=== PATIENT | male | born 1950 | race Caucasian/White ===

== ENCOUNTER 2023-06-17 14:09 | Emergency (ER) | payer MEDICARE, SELFPAY ==
[2023-06-17 14:13] VITALS: BP 169/95; PULSE 85; RESP 18; TEMP 36.9; O2SAT 96; BMI 30.1
--- NOTE | 2023-06-17 14:33 | ED.GENADUL1 ---
Documented by User: SCOTTY Martin 06/17/23 17:20 HPI - General Adult General Chief complaint: Abdominal Pain Stated complaint: ABDOMINAL PAIN Time Seen by Provider: 06/17/23 14:22 Source: patient Mode of arrival: walk-in Limitations: no limitations History of Present Illness HPI narrative: Patient is a 73-year-old male presents to the Emergency Room with concerns of abdominal pain. Patient notes symptoms started yesterday firm anterior abdomen, notes today pain still present, at times severe currently 7-8/10 nonradiating. patient reports having darker than usual stools, is on Plavix. Has a prior history of abdominal hernia noted during a right leg vascular surgery at [facility]. patient reports diarrhea 2-3 times yesterday and today. Denies any radiating pain into his legs. He has still had an appetite but notes his abdominal pain is not improved and continues to worsen. Denies any history of bowel obstructions. PCP is Dr. Peace. Chest pain or shortness of breath. Pain Consistency: Reports constant Relieving factors: Reports none Exacerbating factors: Reports none Related Data Home Medications Medication Instructions Recorded Confirmed ascorbic acid (vitamin C) 500 mg mg PO 06/17/23 capsule atorvastatin 80 mg tablet 80 mg PO DAILY 06/17/23 06/17/23 cholecalciferol (vitamin D3) 125 5,000 unit PO DAILY 06/17/23 06/17/23 mcg (5,000 unit) capsule clopidogrel 75 mg tablet 75 mg PO DAILY 06/17/23 06/17/23 coenzyme Q10 75 mg capsule (Ultra 75 mg PO DAILY 06/17/23 06/17/23 CoQ10) fluticasone fur. 200 mcg-umeclid 1 inh inhalation DAILY 06/17/23 06/17/23 62.5 mcg-vilant 25 mcg inhalat.powder (Trelegy Ellipta) glucosamine VUp-K9-Bnujpojyp 1 tab PO DAILY 06/17/23 06/17/23 keerthi 1,500 mg-400 unit-100 mg tablet (Osteo Bi-Flex (5-Loxin)) hydrochlorothiazide 25 mg tablet 25 mg PO DAILY 06/17/23 06/17/23 losartan 100 mg tablet 100 mg PO DAILY 06/17/23 06/17/23 metoprolol succinate 25 mg 25 mg PO DAILY 06/17/23 06/17/23 tablet,extended release 24 hr multivitamin 1 tab PO DAILY 06/17/23 06/17/23 omega 3-qry-rlc-fish oil 60 mg-90 1 cap PO DAILY 06/17/23 06/17/23 mg-500 mg capsule (Fish Oil) Previous Rx's Medication Instructions Recorded dicyclomine 20 mg tablet 20 mg PO TID 5 days #15 tabs 06/17/23 polyethylene glycol 3350 17 gram 17 g PO DAILY 5 days #14 ea 06/17/23 oral powder packet (Miralax) Allergies Allergy/AdvReac Type Severity Reaction Status Date / Time Penicillins Allergy Intermediate Verified 06/17/23 14:16 Review of Systems ROS Constitutional Denies: fever or chills Eyes Denies: change in vision Ears, nose, mouth, and throat Denies: throat pain or neck pain Cardiovascular Denies: chest pain or palpitations Respiratory Denies: shortness of breath Gastrointestinal Reports: abdominal pain, nausea and change in stool character (dark brown stools, denies black stools or bright red blood.); Denies: vomiting or coffee grounds in vomit Genitourinary Denies: painful urination Musculoskeletal Reports: back pain (chronic per patient) Integumentary/Breast Denies: rash Neurological Denies: headache Psychiatric Denies: anxiety Endocrine Denies: excessive urination Allergic/Immunologic Denies: hives Exam Narrative Exam Narrative: Nurses notes and vital signs reviewed and patient is not hypoxic. General: The patient appears well and in no apparent distress. Patient is resting comfortably on cart. Skin: Warm, dry, no pallor noted. Head: Normocephalic, atraumatic Neck: Supple, trachea mid-line, no tenderness, no lymphadenopathy Eye: Pupils are equal, round and reactive to light, EOMI Ears, Nose, Mouth, and Throat: TM are clear, normal light reflex, oral mucosa is moist, no posterior oropharynx erythema or hypertrophy, uvula is mid-line Cardiovascular: Regular Rate and Rhythm Respiratory: Patient is in no distress, no accessory muscle use, lungs are clear to auscultation, no wheezing, rales or rhonchi. Chest Wall: no tenderness, no pleuritic pain Back: non-tender, no CVA tenderness Musculoskeletal: normal ROM, no tenderness, no swelling, denies pain in the bilateral hips.. GI: Normal bowel sounds, notable periumbilical tenderness, firmness and guarding noted. No focal palpable hernia. No prior surgical scars noted. Suspect. Umbilical hernia, but symptoms are not localized to the umbilicus. rectal: Thien Witt at bedside. Multiple noninflamed hemorrhoids noted, good sphincter tone patient had enlarged prostate on palpation but no significant nodularity palpable. Patient had yellowish-brown stool. No gross blood or dark tarry stool appreciated. Neurological: A&O x4 Psychiatric: Cooperative Constitutional Vital Signs, click to edit/add: Last Vital Signs Temp 98.4 F 06/17/23 14:13 Pulse 85 06/17/23 14:13 Resp 18 06/17/23 14:13 BP 169/95 H 06/17/23 14:13 Pulse Ox 96 06/17/23 14:13 O2 Del Method Room Air 06/17/23 14:13 Course Vital Signs Vital signs: Vital Signs Temperature 98.4 F 06/17/23 14:13 Pulse Rate 85 06/17/23 14:13 Respiratory Rate 18 06/17/23 14:13 Blood Pressure 169/95 H 06/17/23 14:13 Pulse Oximetry 96 06/17/23 14:13 Oxygen Delivery Method Room Air 06/17/23 14:13 Temperature 98.4 F 06/17/23 14:13 Pulse Rate 85 06/17/23 14:13 Respiratory Rate 18 06/17/23 14:13 Blood Pressure 169/95 H 06/17/23 14:13 Pulse Oximetry 96 06/17/23 14:13 Oxygen Delivery Method Room Air 06/17/23 14:13 Medical Decision Making MDM Narrative Medical decision making narrative: patient presents with history of known abdominal hernia, prior CAT scan before Covid. Concern with progressive pain since yesterday, diarrhea. Paatient without any vomiting or fever. Notable guarding on exam patient agreeable to CT examination today. patient medicated with 40 mmg IV Protonix, 1 mg Dilaudid, and IV fluid bolus. patient reevaluated noting abdominal pain completely recalls. Abdomen nonsurgical. He is able to walk without difficulty. We discussed the CT findings, no evidence of acute infection, specifically discussed need for follow-up with general surgeon as patient had a colonoscopy four years ago with multiple polyps removed. We discussed this mucosal change in the sigmoid colon and need for further evaluation along with his prostate. He denies any urinary symptoms currently. He is on Plavix. Rectal exam without any evidence of gross blood, occult blood was negative. Patient is on Plavix. We discussed taking Bentyl and MiraLAX for the next few days. Patient admits to taking Pepto-Bismol and this may havee caused his dark stool. Patient agreeable to disposition home and follow-up to general surgeon.patient denies pain with eating for concern of gallbladder disease, but cholelithiasis The patient is to followup with primary care physician in next 2-3 days or to return to the emergency department should any of the signs or symptoms worsen or new symptoms develop. Patient had questions answered. The patient agrees with the following Diagnosis and Treatment plan and the patient will be discharged home. Lab Data Lab results narrative: mild anemia may be iron deficiency Hemoccult is negative. Slightly elevated creatinine. Clinical exam noted for umbilical hernia, appears only fat containing. Labs: Lab Results 06/17/23 06/17/23 Range/Units 14:47 16:55 WBC 5.1 (4.0-11.0) 10^3/uL RBC 3.90 L (4.70-6.10) 10^6/uL Hgb 12.8 L (14.0-18.0) g/dL Hct 37.3 L (42.0-54.0) % MCV 95.6 H (80.0-94.0) fL MCH 32.8 (25.9-34.0) pg MCHC 34.3 (29.9-35.2) g/dL RDW 13.4 (11.0-15.0) % Plt Count 215 (150-450) 10^3/uL MPV 9.3 L (9.5-13.5) fL Neut % (Auto) 73.8 (43.0-75.0) % Lymph % (Auto) 10.7 L (20.5-60.0) % [place] % (Auto) 11.7 (1.7-12.0) % Eos % (Auto) 2.8 (0.9-7.0) % Baso % (Auto) 0.4 (0.2-2.0) % Neut # (Auto) 3.7 (1.4-6.5) 10^3/uL Lymph # (Auto) 0.5 L (1.2-3.8) 10^3/uL [place] # (Auto) 0.6 (0.3-0.8) 10^3/uL Eos # (Auto) 0.1 (0.0-0.7) 10^3/uL Baso # (Auto) 0.0 (0.0-0.1) 10^3/uL Abs Immat Gran (auto) 0.03 (0.00-0.03) 10^3/uL Imm/Tot Granulo (auto) 0.6 H (0.0-0.5) % PT 10.1 (9.0-11.6) sec INR 0.95 APTT 23.4 (22.3-36.2) sec Sodium 132 L (136-145) mmol/L Potassium 4.7 (3.5-5.1) mmol/L Chloride 100 (98-107) mmol/L Carbon Dioxide 27.0 (21.0-32.0) mmol/L Anion Gap 9.7 BUN 18.0 (7.0-18.0) mg/dL Creatinine 1.53 H (0.70-1.30) mg/dL Est GFR ( Amer) 54 L (>=60) Est GFR (Non-Af Amer) 45 L (>=60) BUN/Creatinine Ratio 11.8 Glucose 102 (74-106) mg/dL Lactate 1.2 (0.4-2.0) mmol/L Calcium 8.9 (8.5-10.1) mg/dL Total Bilirubin 0.8 (0.2-1.0) mg/dL AST 35 (15-37) U/L ALT 33 (16-63) U/L Alkaline Phosphatase 70 (46-116) U/L Troponin I High Sens 18.9 (4.0-76.1) pg/mL Total Protein 6.9 (6.4-8.2) g/dL Albumin 3.4 (3.4-5.0) g/dL Globulin 3.5 g/dL Albumin/Globulin Ratio 1.0 Lipase 138.0 (73.0-393.0) U/L Stool Occult Blood Negative Discharge Plan Discharge Chief Complaint: Abdominal Pain Clinical Impression: Hernia, umbilical, Abdominal pain Patient Disposition: Home, Self-Care Time of Disposition Decision: 17:11 Condition: Good Prescriptions / Home Meds: New dicyclomine 20 mg tablet 20 mg PO TID 5 Days Qty: 15 0RF polyethylene glycol 3350 [Miralax] 17 gram powder in packet 17 g PO DAILY 5 Days Qty: 14 0RF No Action Guy Mtzta 200-62.5-25 mcg blister with device 1 inh inhalation DAILY atorvastatin 80 mg tablet 80 mg PO DAILY clopidogrel 75 mg tablet 75 mg PO DAILY losartan 100 mg tablet 100 mg PO DAILY metoprolol succinate 25 mg tablet extended release 24 hr 25 mg PO DAILY hydrochlorothiazide 25 mg tablet 25 mg PO DAILY ascorbic acid (vitamin C) 500 mg capsule PO cholecalciferol (vitamin D3) 125 mcg (5,000 unit) capsule 5,000 unit PO DAILY multivitamin Tablet 1 tab PO DAILY omega 7-bmk-qal-fish oil [Fish Oil] 60-90-500 mg capsule 1 cap PO DAILY aniihggatlt-H7-Rfwjbjohj serr [Osteo Bi-Flex (5-Loxin)] 1,500-400-100 mg-unit-mg tablet 1 tab PO DAILY Rx Instructions: give after food/meal Ultra CoQ10 75 mg capsule 75 mg PO DAILY Instructions: Umbilical Hernia (ED), Abdominal Pain (ED) Stand Alone Forms: Portal Instructions Referrals: Jeet Josue MD [Physician] - As soon as possible Pool Peace MD [Primary Care Provider] - 1 week Discharge Date/Time: 06/17/23 17:20 Documented by User: Thelma Haynes MD 06/17/23 17:46 HPI - General Adult General Chief complaint: Abdominal Pain Stated complaint: ABDOMINAL PAIN Time Seen by Provider: 06/17/23 14:22 Related Data Home Medications Medication Instructions Recorded Confirmed ascorbic acid (vitamin C) 500 mg mg PO 06/17/23 capsule atorvastatin 80 mg tablet 80 mg PO DAILY 06/17/23 06/17/23 cholecalciferol (vitamin D3) 125 5,000 unit PO DAILY 06/17/23 06/17/23 mcg (5,000 unit) capsule clopidogrel 75 mg tablet 75 mg PO DAILY 06/17/23 06/17/23 coenzyme Q10 75 mg capsule (Ultra 75 mg PO DAILY 06/17/23 06/17/23 CoQ10) fluticasone fur. 200 mcg-umeclid 1 inh inhalation DAILY 06/17/23 06/17/23 62.5 mcg-vilant 25 mcg inhalat.powder (Trelegy Ellipta) glucosamine KYw-A1-Ikbgdvfsl 1 tab PO DAILY 06/17/23 06/17/23 keerthi 1,500 mg-400 unit-100 mg tablet (Osteo Bi-Flex (5-Loxin)) hydrochlorothiazide 25 mg tablet 25 mg PO DAILY 06/17/23 06/17/23 losartan 100 mg tablet 100 mg PO DAILY 06/17/23 06/17/23 metoprolol succinate 25 mg 25 mg PO DAILY 06/17/23 06/17/23 tablet,extended release 24 hr multivitamin 1 tab PO DAILY 06/17/23 06/17/23 omega 8-rdc-bag-fish oil 60 mg-90 1 cap PO DAILY 06/17/23 06/17/23 mg-500 mg capsule (Fish Oil) Previous Rx's Medication Instructions Recorded dicyclomine 20 mg tablet 20 mg PO TID 5 days #15 tabs 06/17/23 polyethylene glycol 3350 17 gram 17 g PO DAILY 5 days #14 ea 06/17/23 oral powder packet (Miralax) Allergies Allergy/AdvReac Type Severity Reaction Status Date / Time Penicillins Allergy Intermediate Verified 06/17/23 14:16 Exam Constitutional Vital Signs, click to edit/add: Last Vital Signs Temp 98.4 F 06/17/23 14:13 Pulse 85 06/17/23 14:13 Resp 18 06/17/23 14:13 BP 169/95 H 06/17/23 14:13 Pulse Ox 96 06/17/23 14:13 O2 Del Method Room Air 06/17/23 14:13 Course Vital Signs Vital signs: Vital Signs Temperature 98.4 F 06/17/23 14:13 Pulse Rate 85 06/17/23 14:13 Respiratory Rate 18 06/17/23 14:13 Blood Pressure 169/95 H 06/17/23 14:13 Pulse Oximetry 96 06/17/23 14:13 Oxygen Delivery Method Room Air 06/17/23 14:13 Temperature 98.4 F 06/17/23 14:13 Pulse Rate 85 06/17/23 14:13 Respiratory Rate 18 06/17/23 14:13 Blood Pressure 169/95 H 06/17/23 14:13 Pulse Oximetry 96 06/17/23 14:13 Oxygen Delivery Method Room Air 06/17/23 14:13 Medical Decision Making MDM Narrative Medical decision making narrative: patient presents with history of known abdominal hernia, prior CAT scan before Covid. Concern with progressive pain since yesterday, diarrhea. Paatient without any vomiting or fever. Notable guarding on exam patient agreeable to CT examination today. patient medicated with 40 mmg IV Protonix, 1 mg Dilaudid, and IV fluid bolus. patient reevaluated noting abdominal pain completely recalls. Abdomen nonsurgical. He is able to walk without difficulty. We discussed the CT findings, no evidence of acute infection, specifically discussed need for follow-up with general surgeon as patient had a colonoscopy four years ago with multiple polyps removed. We discussed this mucosal change in the sigmoid colon and need for further evaluation along with his prostate. He denies any urinary symptoms currently. He is on Plavix. Rectal exam without any evidence of gross blood, occult blood was negative. Patient is on Plavix. We discussed taking Bentyl and MiraLAX for the next few days. Patient admits to taking Pepto-Bismol and this may havee caused his dark stool. Patient agreeable to disposition home and follow-up to general surgeon.patient denies pain with eating for concern of gallbladder disease, but cholelithiasis The patient is to followup with primary care physician in next 2-3 days or to return to the emergency department should any of the signs or symptoms worsen or new symptoms develop. Patient had questions answered. The patient agrees with the following Diagnosis and Treatment plan and the patient will be discharged home. Attending physician attestation I have reviewed the mid-level documentation, agree with the documentation, medical decision making and treatment plan as outlined by the mid-level provider. Lab Data Labs: Lab Results 06/17/23 06/17/23 Range/Units 14:47 16:55 WBC 5.1 (4.0-11.0) 10^3/uL RBC 3.90 L (4.70-6.10) 10^6/uL Hgb 12.8 L (14.0-18.0) g/dL Hct 37.3 L (42.0-54.0) % MCV 95.6 H (80.0-94.0) fL MCH 32.8 (25.9-34.0) pg MCHC 34.3 (29.9-35.2) g/dL RDW 13.4 (11.0-15.0) % Plt Count 215 (150-450) 10^3/uL MPV 9.3 L (9.5-13.5) fL Neut % (Auto) 73.8 (43.0-75.0) % Lymph % (Auto) 10.7 L (20.5-60.0) % [place] % (Auto) 11.7 (1.7-12.0) % Eos % (Auto) 2.8 (0.9-7.0) % Baso % (Auto) 0.4 (0.2-2.0) % Neut # (Auto) 3.7 (1.4-6.5) 10^3/uL Lymph # (Auto) 0.5 L (1.2-3.8) 10^3/uL [place] # (Auto) 0.6 (0.3-0.8) 10^3/uL Eos # (Auto) 0.1 (0.0-0.7) 10^3/uL Baso # (Auto) 0.0 (0.0-0.1) 10^3/uL Abs Immat Gran (auto) 0.03 (0.00-0.03) 10^3/uL Imm/Tot Granulo (auto) 0.6 H (0.0-0.5) % PT 10.1 (9.0-11.6) sec INR 0.95 APTT 23.4 (22.3-36.2) sec Sodium 132 L (136-145) mmol/L Potassium 4.7 (3.5-5.1) mmol/L Chloride 100 (98-107) mmol/L Carbon Dioxide 27.0 (21.0-32.0) mmol/L Anion Gap 9.7 BUN 18.0 (7.0-18.0) mg/dL Creatinine 1.53 H (0.70-1.30) mg/dL Est GFR ( Amer) 54 L (>=60) Est GFR (Non-Af Amer) 45 L (>=60) BUN/Creatinine Ratio 11.8 Glucose 102 (74-106) mg/dL Lactate 1.2 (0.4-2.0) mmol/L Calcium 8.9 (8.5-10.1) mg/dL Total Bilirubin 0.8 (0.2-1.0) mg/dL AST 35 (15-37) U/L ALT 33 (16-63) U/L Alkaline Phosphatase 70 (46-116) U/L Troponin I High Sens 18.9 (4.0-76.1) pg/mL Total Protein 6.9 (6.4-8.2) g/dL Albumin 3.4 (3.4-5.0) g/dL Globulin 3.5 g/dL Albumin/Globulin Ratio 1.0 Lipase 138.0 (73.0-393.0) U/L Stool Occult Blood Negative Discharge Plan Discharge Chief Complaint: Abdominal Pain Clinical Impression: Hernia, umbilical, Abdominal pain Patient Disposition: Home, Self-Care Time of Disposition Decision: 17:11 Condition: Good Prescriptions / Home Meds: New dicyclomine 20 mg tablet 20 mg PO TID 5 Days Qty: 15 0RF polyethylene glycol 3350 [Miralax] 17 gram powder in packet 17 g PO DAILY 5 Days Qty: 14 0RF No Action Trelegy Ellipta 200-62.5-25 mcg blister with device 1 inh inhalation DAILY atorvastatin 80 mg tablet 80 mg PO DAILY clopidogrel 75 mg tablet 75 mg PO DAILY losartan 100 mg tablet 100 mg PO DAILY metoprolol succinate 25 mg tablet extended release 24 hr 25 mg PO DAILY hydrochlorothiazide 25 mg tablet 25 mg PO DAILY ascorbic acid (vitamin C) 500 mg capsule PO cholecalciferol (vitamin D3) 125 mcg (5,000 unit) capsule 5,000 unit PO DAILY multivitamin Tablet 1 tab PO DAILY omega 2-mmc-ddo-fish oil [Fish Oil] 60-90-500 mg capsule 1 cap PO DAILY tsycecqtvzs-Q3-Pougiayup serr [Osteo Bi-Flex (5-Loxin)] 1,500-400-100 mg-unit-mg tablet 1 tab PO DAILY Rx Instructions: give after food/meal Ultra CoQ10 75 mg capsule 75 mg PO DAILY Instructions: Umbilical Hernia (ED), Abdominal Pain (ED) Stand Alone Forms: Portal Instructions Referrals: Jeet Josue MD [Physician] - As soon as possible Pool Peace MD [Primary Care Provider] - 1 week Discharge Date/Time: 06/17/23 17:20
[2023-06-17] MEDS: HYDROMORPHONE HCL 1 MG/ML CARTRIDGE IVP (14:56)
[2023-06-17] MEDS: ONDANSETRON PF 4 MG/2 ML VIAL IV (14:56)
[2023-06-17] MEDS: PANTOPRAZOLE SODIUM 40 MG VIAL IV (14:56)
[2023-06-17] MEDS: 0.9 % SODIUM CHLORIDE 1,000 ML 999 ML IV (14:56)
[2023-06-17 14:58] LABS: Basophils Percent Auto 0.4 % (0.2-2.0); Eosinophils Absolute Auto 0.1 10^3/uL (0.0-0.7); Eosinophils Percent Auto 2.8 % (0.9-7.0); Hematocrit 37.3 % (42.0-54.0); Hemoglobin 12.8 g/dL (14.0-18.0); Immature Granulocytes Abs Auto 0.03 10^3/uL (0.00-0.03); Immature Granulocytes Pct Auto 0.6 % (0.0-0.5); Lymphocytes Absolute Auto 0.5 10^3/uL (1.2-3.8); Lymphocytes Percent Auto 10.7 % (20.5-60.0); Mean Corpuscular HGB Conc 34.3 g/dL (29.9-35.2); Mean Corpuscular Hemoglobin 32.8 pg (25.9-34.0); Mean Corpuscular Volume 95.6 fL (80.0-94.0); Mean Platelet Volume 9.3 fL (9.5-13.5); Monocytes Absolute Auto 0.6 10^3/uL (0.3-0.8); Monocytes Percent Auto 11.7 % (1.7-12.0); Neutrophils Absolute Auto 3.7 10^3/uL (1.4-6.5); Neutrophils Percent Auto 73.8 % (43.0-75.0); Platelet Count 215 10^3/uL (150-450); Red Cell Distribution Width 13.4 % (11.0-15.0); White Blood Count 5.1 10^3/uL (4.0-11.0)
[2023-06-17 15:09] LABS: Anion Gap 9.7; INR 0.95; Partial Thromboplastin Time 23.4 sec (22.3-36.2); Prothrombin Time 10.1 sec (9.0-11.6)
[2023-06-17 15:12] LABS: Alanine Aminotransferase 33 U/L (16-63); Albumin Level 3.4 g/dL (3.4-5.0); Alkaline Phosphatase 70 U/L (46-116); Aspartate Amino Transferase 35 U/L (15-37); BUN Creatinine Ratio 11.8; Bilirubin Total 0.8 mg/dL (0.2-1.0); Calcium 8.9 mg/dL (8.5-10.1); Chloride 100 mmol/L (98-107); Estimated GFR (African America 54 (>=60); Estimated GFR (Non-African Ame 45 (>=60); Globulin 3.5 g/dL; Glucose 102 mg/dL (74-106); Lactate/Lactic Acid 1.2 mmol/L (0.4-2.0); Potassium 4.7 mmol/L (3.5-5.1); Sodium 132 mmol/L (136-145); Total Protein 6.9 g/dL (6.4-8.2); Troponin I High Sensitivity 18.9 pg/mL (4.0-76.1)
--- NOTE | 2023-06-17 15:49 | CT_ITS ---
[address] [address] Patient Name: HUY MARTINEZ MRN: [id number] date: 1950 Sex: M Assigned Patient Location: ER Current Patient Location: ER Accession/Order Number: [id number] Exam Date: 06/17/2023 15:40 Report Date: 06/17/2023 16:17 At the request of: OLI IGLESIAS Procedure: CT abdomen pelvis w con CT abdomen pelvis w con, 06/17/2023 3:40 PM EDT INDICATION: Abdominal pain x2 days. Stool darker than normal. COMPARISON: Contrast-enhanced CT scan of the abdomen and pelvis 02/06/2015, LD CT of the chest lung cancer screening 02/24/2022. TECHNIQUE: Axial images of the abdomen and pelvis were obtained after the administration of oral and IV contrast. Multiplanar reformatted images were generated and reviewed as needed. Dose reduction techniques were achieved by using automated exposure control and/or adjustment of mA and/or kV according to patient size and/or use of iterative reconstruction technique. FINDINGS: Subsegmental atelectasis at the lung bases bilaterally. No lobar consolidation or effusion. Cholelithiasis. The liver, pancreas and adrenals are unremarkable. Calcified splenic granulomas. Symmetric nephrograms without evidence of obstruction. Bilateral cortical renal cysts. No urolithiasis. No urinary bladder wall thickening or perivesicular fat stranding. Central calcification within an enlarged prostate gland. No aortic aneurysm. No bowel obstruction or acute focal inflammation. Normal appendix. Colonic diverticulosis most pronounced within the sigmoid colon. Muscular hypertrophy of the wall of the sigmoid colon. No pneumatosis, pneumoperitoneum or ascites. No mesenteric or retroperitoneal lymphadenopathy. Small fat-containing umbilical hernia. No acute fracture or dislocation. Partially imaged, patent vascular stent right superficial femoral artery. CT/CT abdomen pelvis w con IMPRESSION: 1. Colonic diverticulosis with muscular hypertrophy of the wall of the sigmoid colon. No findings to suggest acute diverticulitis. Discrete underlying mucosal lesion cannot be excluded. 2. Cholelithiasis. 3. Prostatomegaly. Electronically authenticated by: JAMMIE RIVERA Date: 06/17/2023 16:17
--- NOTE | 2023-06-17 15:53 | XR_ITS ---
The [address] [address] Patient Name: HUY MARTINEZ MRN: [id number] date: 1950 Sex: M Assigned Patient Location: ER Current Patient Location: ER Accession/Order Number: [id number] Exam Date: 06/17/2023 15:49 Report Date: 06/17/2023 15:59 At the request of: OLI IGLESIAS Procedure: XR chest 1V EXAMINATION: XR chest 1V HISTORY: Abdominal pain COMPARISON: Chest x-rays 01/07/2022 TECHNIQUE: Portable chest FINDINGS: The lung parenchyma is free of consolidation or infiltrate. Stable left upper hemithorax calcified pulmonary granuloma. No pneumothorax or pleural effusion. The cardiac, mediastinal and hilar contours are normal. The visualized osseous structures exhibit no gross abnormality. XR/XR chest 1V IMPRESSION: No acute cardiopulmonary abnormality. Electronically authenticated by: UMM SMITH Date: 06/17/2023 15:59
[2023-06-17 17:13] LABS: Occult Blood Negative
== END 2023-06-17 17:20 | disposition home or self-care (01) ==
PROVIDERS: Personal Emergency Response Attendant; Emergency Provider Emergency Medicine; PCP Family Medicine
DX: R10.9 Unspecified abdominal pain (principal); K42.9 Umbilical hernia without obstruction or gangrene; R19.5 Other fecal abnormalities; Z79.02 Long term (current) use of antithrombotics/antiplatelets; Z79.899 Other long term (current) drug therapy
CPT/HCPCS: 36415; 71045; 74177; 80053; 83605; 83690; 84484; 85025; 85610; 85730; 96361; 96374; 96375; 99285; G0328; J1170; Q9966

== ENCOUNTER 2023-09-19 08:47 | Outpatient (OUT) | payer MEDICARE, SELFPAY ==
--- NOTE | 2023-09-19 | CT_ITS ---
[address] [address] Patient Name: HUY MARTINEZ MRN: [id number] date: 1950 Sex: M Assigned Patient Location: CT Current Patient Location: Accession/Order Number: [id number] Exam Date: 09/19/2023 09:00 Report Date: 09/20/2023 06:42 At the request of: LEIGHA PEDRAZA Procedure: CT lung screening low-dose EXAMINATION: CT lung screening low-dose HISTORY: lung cancer screening COMPARISON: CT LUNG CANCER SCREENING 02/24/2022, 09/10/2019 TECHNIQUE: Axial, Coronal, and Sagittal images were created without the administration of IV contrast material. Dose reduction techniques were achieved by using automated exposure control and/or adjustment of mA and/or kV according to patient size and/or use of iterative reconstruction technique. FINDINGS: LUNGS: Stable calcified granuloma within left lung apex and 4 mm pleural-based nodule within medial right lower lobe. Minimal emphysematous changes. PLEURA: No mass, effusion, or pneumothorax. VASCULATURE: No abnormality. WINDY: Calcified left hilar lymph nodes compatible with chronic granulomatous disease. MEDIASTINUM: Calcified lymph nodes. CARDIAC: Atherosclerotic coronary artery disease. No cardiac enlargement or pericardial effusion. AORTA: No aneurysm or dissection. CHEST WALL: No mass or axillary adenopathy BONES: Stable T9 mild-moderate compression fracture. Old healed rib fractures. LIMITED ABDOMEN: No suspicious findings. Limited images of the upper abdomen. OTHER: Negative. CT/CT lung screening low-dose IMPRESSION: 1. Lung-RADS 2- Benign Appearance or Behavior. Nodules with a very low likelihood of becoming a clinically active cancer due to size or lack of growth. Follow-up CT Chest in 1 year. Electronically authenticated by: BRADY MORRIS Date: 09/20/2023 06:42
== END 2023-09-19 08:48 | disposition home or self-care (01) ==
LOC: CT 08:47
PROVIDERS: PCP Family Medicine; Visit Provider Internal Medicine
DX: Z87.891 Personal history of nicotine dependence (principal); Z12.2 Encounter for screening for malignant neoplasm of respiratory organs
CPT/HCPCS: 71271

== ENCOUNTER 2023-11-14 14:54 | Outpatient (OUT) | payer MEDICARE, SELFPAY ==
--- NOTE | 2023-11-14 15:00 | XR_ITS ---
The [address] [address] Patient Name: HUY MARTINEZ MRN: [id number] date: 1950 Sex: M Assigned Patient Location: [facility] Current Patient Location: [facility] Accession/Order Number: [id number] Exam Date: 11/14/2023 15:05 Report Date: 11/14/2023 15:27 At the request of: LEIGHA PEDRAZA Procedure: XR chest 2V PA AND LATERAL CHEST; 11/14/2023 3:05 PM EST Clinical History:dyspnea R06.02 Comparison: Frontal exam 06/17/2023 in 2 view study 12/28/2021. Modest compression deformity at a mid to lower thoracic levels unchanged. In the upper thoracic region interval mild superior endplate deformity which is relatively smooth bordered. Is is likely late subacute to chronic Multiple chronic right rib fractures are again demonstrated. No change cardiac and mediastinal silhouettes or angelina. [employer] technique today. Relatively mild peribronchial thickening at the right base. Slight atelectasis or scar at the left base. No failure pattern or pleural effusion. Granuloma left upper lobe is again present. XR/XR chest 2V IMPRESSION: 1. Peribronchial markings at the right base are without significant change. Slight atelectasis left base. 2. No pleural effusion or failure. Electronically authenticated by: GRACIELA LOPEZ Date: 11/14/2023 15:27
--- OUTSIDE RECORDS SUMMARY | 2023-11-14 15:05 | XMS_ITS | CCD ---
Author Name Unknown Address [address] [place] [address] Organization [facility] Care Team Providers Care Flour Inspector Name Role Phone [place] Procedure Practitioner Unavailab le SELF, REFERRED Referring Unavailable SELF, REFERRED Primary Care Unavailable EBRAHEIM, DONALD Surgeon Unavailable EBRAHEIM, DONALD Attending Unavailable EBRAHEIM, DONALD Admitting Unavailable [place] Procedure Practitioner Unavailab YA Galarza Surgeon Unavailable UNKNOWN, PROVIDER Attending Unavailable UNKNOWN, PROVIDER Admitting Unavailable POOL GARCIA Primary Care Unavailable JOSE, POOL Referring Unavailable UNKNOWN, PROVIDER Attending Unavailable UNKNOWN, PROVIDER Admitting Unavailable NADEREMariusz, POOL Referring Unavailable NADERER, POOL Primary Care Unavailable UNKNOWN, PROVIDER Attending Unavailable UNKNOWN, PROVIDER Admitting Unavailable SELF, REFERRED Referring Unavailable SELF, REFERRED Primary Care Unavailable [place] Procedure Practitioner Unavailab le SELF, REFERRED Primary Care Unavailable EBRAHEIM, DONALD Surgeon Unavailable EBRAHEIM, DONALD Referring Unavailable EBRAHEIM, DONALD Attending Unavailable EBRAHEIM, DONALD Admitting Unavailable MARCUS VILLEDA Attending Unavailable CHAUHAN ., DR SCOTT Jurado Consulting Unavailable NADERER, DR POOL Valera Primary Care Unavailable CHAUHAN ., DR SCOTT Jurado Attending Unavailable CHAUHAN ., DR SCOTT Jurado Admitting Unavailable CHAUHAN ., DR SCOTT Jurado Consulting Unavailable NADERER, DR POOL Valera Primary Care Unavailable CHAUHAN ., DR SCOTT Jurado Attending Unavailable CHAUHAN ., DR SCOTT Jurado Admitting Unavailable LAKSHMIPATHY, NARENDRANATH Consulting Unava ilable NADEREMariusz, DR POOL Valera Primary Care Unavailable LAKSHMIPATHY, NARENDRANATH Attending Unava ilable LAKSHMIPATHY, NARENDRANATH Admitting Unava ilable LAKSHMIPATHY, NARENDRANATH Consulting Unava ilable NADEREMariusz, DR POOL Valera Primary Care Unavailable LAKSHMIPATHY, NARENDGISELLEATH Attending Unava ilable LAKSHMIPATHY, NARENDRANATH Admitting Unava ilable SAMSA ., LEIGHA Consulting Unavailable NADERER, DR POOL Valera Primary Care Unavailable SAMSA ., LEIGHA Attending Unavailable SAMSA ., LEIGHA Admitting Unavailable SAMSA ., LEIGHA Consulting Unavailable NADERER, DR POOL Valera Primary Care Unavailable SAMSA ., LEIGHA Attending Unavailable SAMSA ., LEIGHA Admitting Unavailable AGUBOSIM, KALEIGH Consulting Unavailable LONG, CHANTELLE Consulting Unavailable ALEJANDRO, CARMEN Consulting Unavailable ALEXANDRA, DR BRADY Vee Consulting Unavailable NADERER, DR POOL Valera Primary Care Unavailable SAMSA ., LEIGHA Attending Unavailable SAMSA ., LEIGHA Admitting Unavailable SAMSA ., LEIGHA Consulting Unavailable NADERER, DR POOL Valera Consulting Unavailable NADERER, DR POOL Valera Primary Care Unavailable NADERER, DR POOL Valera Attending Unavailable NADERER, DR POOL Valera Admitting Unavailable CHAUHAN ., DR SCOTT Jurado Consulting Unavailable NADERER, DR POOL Valera Primary Care Unavailable CHAUHAN ., DR SCOTT Jurado Attending Unavailable CHAUHAN ., DR SCOTT Jurado Admitting Unavailable NADERER, DR POOL Valera Consulting Unavailable NADERER, DR POOL Valera Primary Care Unavailable NADERER, DR POOL Valera Attending Unavailable NADERER, DR POOL Valera Admitting Unavailable CHAUHAN ., DR SCOTT Jurado Consulting Unavailable NADERER, DR POOL Valera Primary Care Unavailable CHAUHAN ., DR SCOTT Jurado Attending Unavailable CHAUHAN ., DR SCOTT Jurado Admitting Unavailable Katiana Kemp Unavailable Allergies Allergy Classification Reported Allergen(s) Allergy Type Date of Onset Reaction(s) Facility (3 sources) Penicillins; Translations: [PENICILLINS] Drug allergy (disorder) 7 [facility] Repository (1 source) Penicillin G Drug Allergy hives and throat swelling e-Tag Other Medications Current Medications Medication Drug Class(es) Dates Sig (Normalized) Sig (Original) atorvastatin (1 source) HMG-CoA Reductase Inhibitor Atorvastatin Calcium Active clopidogrel 75 mg oral tablet (1 source) P2Y12 Platelet Inhibitor take 1 tablet by mouth every twenty-four hours Clopidogrel Bisulfate 75 MG 1 tablet Orally Once a day Active CoQ-10 150 MG (1 source) CoQ-10 150 MG as directed Orally Active doxycycline hyclate 100 mg oral capsule (1 source) Tetracycline-cl ass Drug Start: 3 take 1 capsule by mouth every twelve hours Doxycycline Hyclate 100 MG 1 capsule Orally Twice a day for 7 days May, Active Fish Oils (1 source) take 1 capsule by mouth once daily Fish Oil 1000 MG 1 capsule Orally Once a day Active hydroCHLOROthiazide (1 source) Thiazide Diuretic hydroCHLOROthiazide Active Losartan (1 source) Angiotensin 2 Receptor Karina Losartan Potassium Active Metoprolol (1 source) beta-Adrenergic Karina Metoprolol Succinate ER Active Multivitamin preparation (1 source) take 1 tablet by mouth once daily Multi Vitamin - 1 tablet Orally Once a day Active Osteo Bi-Flex Adv Joint Shield (1 source) Osteo Bi-Flex Ad v Joint Shield Active predniSONE 20 mg oral tablet (1 source) Start: 3 predniSONE 20 MG Take 3 tabs daily x 3 days, then take 2 tabs daily x 3 days, then take 1 tab daily x 3 days. Orally Once a day for 9 days May, Active Probiotic - (1 source) Probiotic - as directed Orally Active Trelegy Ellipta (1 source) Trelegy Ellipta Active Vitamin C 500 MG (1 source) Vitamin C 500 MG as directed Orally Active Vitamin D-3 125 MCG (5000 UT) (1 source) take 1 tablet by mouth once daily Vitamin D-3 125 MCG (5000 UT) 1 tablet Orally Once a day Active Completed/Discontinued Medications Medication Drug Class(es) Dates Sig (Normalized) Sig (Original) Albuterol (1 source) beta2-Adrenergic Agonist ProAir HFA Not-Taking Aspirin (1 source) Platelet Aggregation Inhibitor, Nonsteroidal Anti-inflammatory Drug Aspirin Low Dose Not-Taking cilostazol (1 source) Phosphodiesterase 3 Inhibitor Cilostazol Not-Taking diclofenac potassium 50 mg oral tablet (1 source) Nonsteroidal Anti-inflammatory Drug Start: 10-10-2019 take 1 tablet by mouth at mealtime Diclofenac Potassium 50 MG 1 tablet Orally two to three times a day with food for 5 days Sep, Not-Taking Isosorbide (1 source) Nitrate Vasodilator Isosorbide Mononitrate ER Not-Taking Problems Active Problems Problem Classification Problem Date Documented Da te Episodic/Chronic Chronic kidney disease (1 source) Chronic kidney disease, unspecified; Translations: [CHRONIC KIDNEY DISEASE UNSPECIFIED] Onset: 03-03-2022 Chronic Chronic obstructive pulmonary disease and bronchiectasis (1 source) Chronic obstructive pulmonary disease, unspecified; Translations: [COPD UNSPECIFIED] Onset: 03-16-2022 Chronic Coronary atherosclerosis and other heart disease (3 sources) Coronary arteriosclerosis; Translations: [Atherosclerotic heart disease of kiana coronary artery without angina pectoris] Onset: 03-16-2022 Chronic Disorders of lipid metabolism (3 sources) Hyperlipidemia; Translations: [Hyperlipidemia, unspecified] Onset: 07-30-2022 Chronic Essential hypertension (6 sources) Hypertensive disorder; Translations: [Essential (primary) hypertension] Onset: 07-27-2022 Chronic Gout and other crystal arthropathies (2 sources) 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; Translations: [Gout, unspecified] Chronic Hyperplasia of prostate (1 source) Benign prostatic hyperplasia without lower urinary tract symptoms; Translations: [BENIGN PROSTATIC HYPRPLASIA WO LUTS] Onset: 03-16-2022 Chronic Hypertension with complications and secondary hypertension (1 source) Hypertensive chronic kidney disease with stage 1 through stage 4 chronic kidney disease, or unspecified chronic kidney disease; Translations: [HTN CKD W/STAGE 1-4 CKD/UNS CKD] Onset: 03-16-2022 Chronic Malaise and fatigue (4 sources) Other fatigue; Translations: [OTHER FATIGUE] Onset: 01-13-2023 Episodic Nutritional deficiencies (1 source) Vitamin D deficiency, unspecified; Translations: [VITAMIN D DEFICIENCY UNSPECIFIED] Onset: 07-30-2022 Chronic Osteoarthritis (1 source) Unilateral primary osteoarthritis, right knee; Translations: [UNI PRIM OSTEOARTHRITIS RT KNEE] Onset: 03-16-2022 Chronic Other aftercare (1 source) Other [place] (current[facility] drug therapy; Translations: [OTH ENERGY ECONOMIST CURRENT DRUG THERAPY] Onset: 01-16-2023 Episodic Other diseases of veins and lymphatics (1 source) Other specified noninfective disorders of lymphatic vessels and lymph nodes; Translations: [OTH SPEC NONINFECT D/O LYM VES NODE] Onset: 03-16-2022 Chronic Other nervous system disorders (2 sources) Other chronic pain; Translations: [OTHER CHRONIC PAIN] Onset: 10-27-2022 Chronic Other non-traumatic joint disorders (5 sources) Pain in left hip; Translations: [PAIN IN LEFT HIP] Onset: 12-12-2022 Episodic Other nutritional; endocrine; and metabolic disorders (1 source) Obesity, unspecified; Translations: [OBESITY UNSPECIFIED] Onset: 07-30-2022 Chronic Other nutritional; endocrine; and metabolic disorders (1 source) Body mass index (BMI) 31.0-31.9, adult; Translations: [BODY MASS INDEX BMI 31.0-31.9 ADULT] Onset: 03-16-2022 Chronic Other upper respiratory disease (1 source) Allergic rhinitis due to pollen; Translations: [ALLERGIC RHINITIS DUE TO POLLEN] Onset: 03-16-2022 Chronic Peripheral and visceral atherosclerosis (3 sources) Peripheral vascular disease; Translations: [Peripheral vascular disease, unspecified] Onset: 03-16-2022 Chronic Residual codes; unclassified (1 source) Obstructive sleep apnea (adult) (pediatric); Translations: [OBSTRUCTIVE SLEEP APNEA] Onset: 03-16-2022 Chronic Spondylosis; intervertebral disc disorders; other back problems (2 sources) Other spondylosis with radiculopathy, lumbar region; Translations: [Other intervertebral disc degeneration, lumbar region] Onset: 03-16-2022 Chronic Spondylosis; intervertebral disc disorders; other back problems (6 sources) Radiculopathy, lumbar region; Translations: [Intervertebral disc disorders with radiculopathy, lumbar region] Onset: 10-27-2022 Episodic Unclassified (3 sources) LOW BACK PAIN, UNSPECIFIED; Translations: [LOW BACK PAIN, UNSPECIFIED] Onset: 10-27-2022 Unclassified (4 sources) OTHER EOSINOPHILIA; Translations: [OTHER EOSINOPHILIA] Onset: 02-25-2022 Unclassified (1 source) CHRN KIDNEY DISEASE STG 3 UNSP; Translations: [CHRN KIDNEY DISEASE STG 3 UNSP] Onset: 03-16-2022 Past or Other Problems Problem Classification Problem Date Documented Da te Episodic/Chronic Other aftercare (1 source) long term (current) use of anticoagulants; Translations: [ENERGY ECONOMIST CURRNT USE ANTICOAGULANTS] Onset: 03-03-2022 Episodic Other connective tissue disease (5 sources) Trochanteric bursitis, left hip; Translations: [TROCHANTERIC BURSITIS LEFT HIP] Onset: 10-27-2022 Episodic Other lower respiratory disease (5 sources) Chronic cough; Translations: [CHRONIC COUGH] Onset: 03-03-2022 Episodic Other lower respiratory disease (1 source) Other nonspecific abnormal finding of lung field; Translations: [OTH NONSPECIFIC ABN FIND LNG FIELD] Onset: 03-16-2022 Episodic Other screening for suspected conditions (not mental disorders or infectious disease) (1 source) Encounter for screening for malignant neoplasm of prostate; Translations: [ENC SCREEN MALIG NEOPLASM PROSTATE] Onset: 07-30-2022 Episodic Pleurisy; pneumothorax; pulmonary collapse (1 source) Pleural plaque without asbestos; Translations: [PLEURAL PLAQUE WITHOUT ASBESTOS] Onset: 03-16-2022 Episodic Screening and history of mental health and substance abuse codes (1 source) Personal history of nicotine dependence; Translations: [PERSONAL HISTORY OF NICOTINE DEPEND] Onset: 03-16-2022 Episodic Unclassified (1 source) LOW BACK PAIN, UNSPECIFIED; Translations: [LOW BACK PAIN, UNSPECIFIED] Onset: 10-26-2022 Unclassified (1 source) OTHER EOSINOPHILIA; Translations: [OTHER EOSINOPHILIA] Onset: 02-24-2022 Results Test Name Value Interpretation Reference Range Facility TESTOSTERONE, TOTALon 2022 Testosterone [Mass/Vol] 215 ng/dL Critically low 264-916 [facility] [place] Comment on above: Result Comment: Adul t male reference interval is based on a population of healthy nonobese males (BMI <30) between 19 and 39 years old. Rosa et.al. JCEM 2017,102;6056-2768. PMID: [id number]. Performed By: #### T ESTTOT #### [facility] [address] [place] [address] Dr. Marilin Rothman CBC AUTO DIFFon 01-13-2023 BASO # 0.0 103/ul Normal 0.0-0.1 [facility] [place] Comment on above: Performed By: #### T ALEXANDER, BMP #### [facility] [address] [place] [address] Dr. Marilin Rothman Basophils/100 WBC (Bld) 0.3 % Normal 0.2-2.0 [facility] Comment on above: Performed By: #### T ALEXANDER BMP #### [facility] [address] [place] [address] Dr. Marilin Rothman EO # 0.0 103/ul Normal 0.0-0.7 [facility] [place] Comment on above: Performed By: #### T ALEXANDER, BMP #### [facility] [address] [place] [address] Dr. Marilin Rothman Eosinophils/100 WBC (Bld) 0.2 % Critically low 0.9-7.0 [facility] [place] Comment on above: Performed By: #### T SH, BMP #### [facility] [address] [place] [address] Dr. Marilin Rothman Erythrocyte distribution width (RBC) [Ratio] 13.3 % Normal 11.0-15.0 [facility] [place] Comment on above: Performed By: #### T SH, BMP #### [facility] [address] [place] [address] Dr. Marilin Rothman Hematocrit (Bld) [Volume fraction] 38.2 % Critically low 42.0-54.0 [facility] [place] Comment on above: Performed By: #### T SH, BMP #### [facility] [address] [place] [address] Dr. Marilin Rothman Hemoglobin (Bld) [Mass/Vol] 13.1 g/dL Critically low 14.0-18.0 [facility] [place] Comment on above: Performed By: #### T SH, BMP #### [facility] [address] [place] [address] Dr. Marilin Rothman IG # 0.08 10e3/ul Critically high 0.00-0.03 [facility] Comment on above: Performed By: #### T SH, BMP #### [facility] [address] [place] [address] Dr. Marilin Rothman IG % 0.8 % Critically high 0.0-0.5 [facility] [place] [facility] Comment on above: Performed By: #### T SH, BMP #### [facility] [address] [place] [address] Dr. Marilin Rothman LYMPH # 1.0 103/ul Critically low 1.2-3.8 [facility] Comment on above: Performed By: #### T SH, BMP #### [facility] [address] [place] [address] Dr. Marilin Rothman Lymphocytes/100 WBC (Bld) 10.1 % Critically low 20.5-60.0 [facility] Comment on above: Performed By: #### T SH, BMP #### [facility] [address] [place] [address] Dr. Marilin Rothman MANUAL DIFF REQ NO Normal [facility] Comment on above: Performed By: #### T SH, BMP #### [facility] [address] [place] [address] Dr. Marilin Rothman MCH (RBC) [Entitic mass] 32.8 pg Normal 25.9-34.0 [facility] [place] Comment on above: Performed By: #### T SH, BMP #### [facility] [address] [place] [address] Dr. Marilin Rothman MCHC (RBC) [Mass/Vol] 34.3 g/dL Normal 29.9-35.2 [facility] [place] Comment on above: Performed By: #### T SH, BMP #### [facility] [address] [place] [address] Dr. Marilin Rothman MCV (RBC) [Entitic vol] 95.7 fL Critically high 80.0-94 .0 [facility] [place] Comment on above: Performed By: #### T SH, BMP #### [facility] [address] [place] [address] Dr. Marilin Rothman MONO # 0.8 103/ul Normal 0.3-0.8 [facility] [place] Comment on above: Performed By: #### T SH, BMP #### [facility] [address] [place] [address] Dr. Marilin Rothman Monocytes/100 WBC (Bld) 8.1 % Normal 1.7-12.0 [facility] Comment on above: Performed By: #### T SH, BMP #### [facility] [address] [place] [address] Dr. Marilin Rothman NEUT # 7.6 103/ul Critically high 1.4-6.5 [facility] Comment on above: Performed By: #### T SH, BMP #### [facility] [address] [place] [address] Dr. Marilin Rothman Neutrophils/100 WBC (Bld) 80.5 % Critically high 43.0-75.0 [facility] [place] Comment on above: Performed By: #### T SH, BMP #### [facility] [address] [address] [address] Marilin Rothman Platelet mean volume (Bld) [Entitic vol] 8.6 fL Critically low 9.5-13.5 [facility] [place] Comment on above: Performed By: #### T SH, BMP #### [facility] [address] [address] [address] Marilin Rothman PLT 237 103/ul Normal 150-450 [facility] [place] Comment on above: Performed By: #### T SH, BMP #### [facility] [address] [address] [address] Marilin Rothman RBC 3.99 106/ul Critically low 4.70-6.10 [facility] Comment on above: Performed By: #### T SH, BMP #### [facility] [address] [place] [address] Dr. Marilin Rothman WBC 9.4 103/ul Normal 4.0-11.0 [facility] [place] Comment on above: Performed By: #### T SH, BMP #### [facility] [address] [place] [address] Dr. Marilin Rothman PROF CHEM 8 (BAS METB)on Anion gap [Moles/Vol] 7.8 mmol/L Normal [facility] [place] Comment on above: Performed By: #### T SH, BMP #### [facility] [address] [place] [address] Dr. Marilin Rothman Calcium [Mass/Vol] 9.9 mg/dL Normal 8.5-10.1 [facility] Comment on above: Performed By: #### T SH, BMP #### [facility] [address] [place] [address] Dr. Marilin Rothman Chloride [Moles/Vol] 102 mmol/L Normal 98-107 [facility] [place] Comment on above: Performed By: #### T SH, BMP #### [facility] [address] [address] [address] Marilin Rothman CO2 [Moles/Vol] 31.8 mmol/L Normal 21.0-32.0 [facility] Comment on above: Performed By: #### T SH, BMP #### [facility] [address] [place] [address] Dr. Marilin Rothman Creatinine [Mass/Vol] 1.30 mg/dL Normal 0.70-1.30 [facility] [place] Comment on above: Performed By: #### T SH, BMP #### [facility] [address] [address] [address] Marilin Rothman EGFR-AF [place]IZ[place] >60 Normal >=60 [facility] Comment on above: Performed By: #### T SH, BMP #### [facility] [address] [address] [address] Marilin Rothman EGFR-NON AF [place] CIT[place] 54 mL/min/1.73m2 Critically low >=60 [facility] [place] Comment on above: Performed By: #### T SH, BMP #### [facility] [address] [place] [address] Dr. Marilin Rothman Glucose [Mass/Vol] 110 mg/dL Critically high 74-106 [facility] Comment on above: Performed By: #### T SH, BMP #### [facility] [address] [place] [address] Dr. Marilin Rothman Potassium [Moles/Vol] 4.6 mmol/L Normal 3.5-5.1 [facility] [place] Comment on above: Performed By: #### T SH, BMP #### [facility] [address] [place] [address] Dr. Marilin Rothman Sodium [Moles/Vol] 137 mmol/L Normal 136-145 [facility] Comment on above: Performed By: #### T SH, BMP #### [facility] [address] [address] [address] Marilin Rothman Urea nitrogen [Mass/Vol] 18.0 mg/dL Normal 7.0-18.0 [facility] [place] Comment on above: Performed By: #### T SH, BMP #### [facility] [address] [place] [address] Dr. Marilin Rothman Urea nitrogen/Creatinine [Mass ratio] 13.8 mg/mg Normal [facility] [place] Comment on above: Performed By: #### T SH, BMP #### [facility] [address] [place], [place] [address] Dr. Marilin Rothman TSHon 01-13-2023 TSH 0.951 uIU/mL Normal 0.358-3.740 [facility] [place] [facility] Comment on above: Performed By: #### T SH, BMP #### [facility] [address] [place], [place] [address] Dr. Marilin Rothman Office Visiton 12-14-2022 Follow-up visit [id number] Mike Osei Raza 1950 M Date Provider Department Center 12/14/2022 MARCUS ODONNELL [facility] Family History Problem Relation Age of Onset Cancer Mother Cancer Brother Diabetes Paternal Grandmother Family Status - Relation Status Age at Mother Brother Paternal Grandmother Level of Service:23629 [place] OFFICE/OUTPATIENT ESTABLISHED MOD MDM 30-39 MIN Reason for Visit and Comments: Coronary Artery Disease [187] Hypertension [366474] Peripheral Vascular Disease [458] Hyperlipidemia [182] Normal [facility] 36on 12-10-2022 34 Approving, but needs appt for additional refills. Normal [facility] XR LSPINE W_OBLS AND FLEX_EX Ton 10-27-2022 XR LSPINE W_OBLS AND FLEX_EXT EXAMINATION: XR LSPINE W_OBLS AND FLEX_EXT HISTORY: Low back pain , chronic COMPARISON: CT chest 03/09/2021 FINDINGS: BONES: Minimal grade 1 anterolisthesis of L4 on 5. Moderate marked degenerative facet arthropathy L3-L4 through L5-S1. Moderate compression fracture of T9 vertebral body. DISC SPACES: Moderate narrowing L5-S1. PARASPINOUS: Atherosclerotic disease of aorta without visible aneurysm. OTHER: Negative. IMPRESSION: 1. Degenerative changes of lower lumbar spine. No appreciable acute abnormality. 2. Moderate compression fracture of T9 vertebral body; stable to minimally changed compared to 03/09/2021. Electronically authenticated by: BRADY MORRIS Date: 2022-10-27 17:11 Normal [facility] [place] CBC AUTO DIFFon 07-27-2022 BASO # 0.1 103/ul Normal 0.0-0.1 [facility] [place] Comment on above: Performed By: #### T SH, BMP #### [facility] [address] [place] [address] Dr. Marilin Rothman Basophils/100 WBC (Bld) 0.8 % Normal 0.2-2.0 [facility] Comment on above: Performed By: #### T SH, BMP #### [facility] [address] [place] [address] Dr. Marilin Rothman EO # 0.1 103/ul Normal 0.0-0.7 [facility] [place] Comment on above: Performed By: #### T SH, BMP #### [facility] [address] [place] [address] Dr. Marilin Rothman Eosinophils/100 WBC (Bld) 2.2 % Normal 0.9-7.0 [facility] [place] Comment on above: Performed By: #### T SH, BMP #### [facility] [address] [place] [address] Dr. Marilin Rothman Erythrocyte distribution width (RBC) [Ratio] 13.2 % Normal 11.0-15.0 [facility] [place] Comment on above: Performed By: #### T SH, BMP #### [facility] [address] [place] [address] Dr. Marilin Rothman Hematocrit (Bld) [Volume fraction] 38.6 % Critically low 42.0-54.0 [facility] [place] Comment on above: Performed By: #### T SH, BMP #### [facility] [address] [place] [address] Dr. Marilin Rothman Hemoglobin (Bld) [Mass/Vol] 12.5 g/dL Critically low 14.0-18.0 [facility] [place] Comment on above: Performed By: #### T SH, BMP #### [facility] [address] [place] [address] Dr. Marilin Rothman IG # 0.06 10e3/ul Critically high 0.00-0.03 [facility] Comment on above: Performed By: #### T SH, BMP #### [facility] [address] [address] [address] Marilin Rothman IG % 1.0 % Critically high 0.0-0.5 [facility] [place] [facility] Comment on above: Performed By: #### T SH, BMP #### [facility] [address] [place] [address] Dr. Marilin Rothman LYMPH # 1.0 103/ul Critically low 1.2-3.8 [facility] Comment on above: Performed By: #### T SH, BMP #### [facility] [address] [place] [address] Dr. Marilin Rothman Lymphocytes/100 WBC (Bld) 15.9 % Critically low 20.5-60.0 [facility] Comment on above: Performed By: #### T SH, BMP #### [facility] [address] [place] [address] Dr. Marilin Rothman MANUAL DIFF REQ NO Normal [facility] [place] [facility] Comment on above: Performed By: #### T ALEXANDER, BMP #### [facility] [address] [place] [address] Dr. Marilin Rothman MCH (RBC) [Entitic mass] 32.2 pg Normal 25.9-34.0 [facility] Comment on above: Performed By: #### T ALEXANDER, BMP #### [facility] [address] [place] [address] Dr. Marilin Rothman MCHC (RBC) [Mass/Vol] 32.4 g/dL Normal 29.9-35.2 [facility] Comment on above: Performed By: #### T SH, BMP #### [facility] [address] [place] [address] Dr. Marilin Rothman MCV (RBC) [Entitic vol] 99.5 fL Critically high 80.0-94 .0 [facility] Comment on above: Performed By: #### T SH, BMP #### [facility] [address] [place] [address] Dr. Marilin Rothman MONO # 0.8 103/ul Normal 0.3-0.8 [facility] Comment on above: Performed By: #### T SH, BMP #### [facility] [address] [address] [address] Marilin Rothman Monocytes/100 WBC (Bld) 12.9 % Critically high 1.7-12. 0 [facility] [place] Comment on above: Performed By: #### T SH, BMP #### [facility] [address] [place] [address] Dr. Marilin Rothman NEUT # 4.2 103/ul Normal 1.4-6.5 [facility] Comment on above: Performed By: #### T SH, BMP #### [facility] [address] [place] [address] Dr. Marilin Rothman Neutrophils/100 WBC (Bld) 67.2 % Normal 43.0-75.0 [facility] Comment on above: Performed By: #### T SH, BMP #### [facility] [address] [place] [address] Dr. Marilin Rothman Platelet mean volume (Bld) [Entitic vol] 9.3 fL Critically low 9.5-13.5 [facility] [place] Comment on above: Performed By: #### T SH, BMP #### [facility] [address] [place] [address] Dr. Marilin Rothman PLT 260 103/ul Normal 150-450 [facility] [place] Comment on above: Performed By: #### T SH, BMP #### [facility] [address] [place] [address] Dr. Marilin Rothman RBC 3.88 106/ul Critically low 4.70-6.10 [facility] [place] [facility] Comment on above: Performed By: #### T SH, BMP #### [facility] [address] [place] [address] Dr. Marilin Rothman WBC 6.3 103/ul Normal 4.0-11.0 [facility] Comment on above: Performed By: #### T SH, BMP #### [facility] [address] [place] [address] Dr. Marilin Rothman LIPID PROFILEon 07-27-2022 CHOL-HDL RATIO NORM SEE BELOW Normal [facility] Comment on above: Result Comment: 3.3 - 4.4 LOW RISK 4.4 - 7.1 AVERAGE RISK 7.1 - 11.0 MODERATE RISK >11.0 HIGH RISK Performed By: #### T SH, BMP #### [facility] [address] [place] [address] Dr. Marilin Rothman Cholesterol [Mass/Vol] 155 mg/dL Normal <=200 [facility] Comment on above: Performed By: #### T SH, BMP #### [facility] [address] [place] [address] Dr. Marilin Rothman Cholesterol in HDL [Mass/Vol] 76 mg/dL Critically high 40-60 [facility] [place] Comment on above: Performed By: #### T SH, BMP #### [facility] [address] [place] [address] Dr. Marilin Rothman Cholesterol in LDL [Mass/Vol] 54.8 mg/dL Normal [facility] Comment on above: Performed By: #### T SH, BMP #### [facility] [address] [place] [address] Dr. Marilin Rothman Cholesterol.total/Grace sterol in HDL [Mass ratio] 2.0 {ratio} Normal [facility] Comment on above: Performed By: #### T SH, BMP #### [facility] [address] [place] [address] Dr. Marilin Rothman HDL NORMAL > or = 60 mg/dl - LO W CARDIOVASCULAR RISK <40 mg/dl - HIGH CARDIOVASCULAR RISK Normal [facility] [place] Comment on above: Performed By: #### T SH, BMP #### [facility] [address] [place] [address] Dr. Marilin Rothman LDL CALC NORMAL SEE BELOW Normal [facility] Comment on above: Result Comment: <100 mg/dl OPTIMAL 100 - 129 mg/dl NEAR OR ABOVE OPTIMAL 130 - 159 mg/dl BORDERLINE HIGH 160 - 189 mg/dl HIGH >190 mg/dl VERY HIGH Performed By: #### T SH, BMP #### [facility] [address] [place] [address] Dr. Marilin Rothman Triglyceride [Mass/Vol] 121 mg/dL Normal <=150 [facility] Comment on above: Performed By: #### T SH, BMP #### [facility] [address] [place] [address] Dr. Marilin Rothman VLDL CALC 24.2 mg/dL Normal [facility] [place] Comment on above: Performed By: #### T SH, BMP #### [facility] [address] [place] [address] Dr. Marilin Rothman LIVER PROFILEon 07-27-2022 Albumin [Mass/Vol] 3.9 g/dL Normal 3.4-5.0 [facility] Comment on above: Performed By: #### T SH, BMP #### [facility] [address] [place] [address] Dr. Marilin Rothman Albumin/Globulin [Mass ratio] 1.2 {ratio} Normal [facility] [place] Comment on above: Performed By: #### T SH, BMP #### [facility] [address] [place] [address] Dr. Marilin Rothman ALP [Catalytic activity/Vol] 89 U/L Normal 46-116 [facility] Comment on above: Performed By: #### T SH, BMP #### [facility] [address] [place] [address] Dr. Marilin Rothman ALT [Catalytic activity/Vol] 26 U/L Normal 16-63 [facility] Comment on above: Performed By: #### T SH, BMP #### [facility] [address] [place] [address] Dr. Marilin Rothman AST [Catalytic activity/Vol] 17 U/L Normal 15-37 [facility] Comment on above: Performed By: #### T SH, BMP #### [facility] [address] [place] [address] Dr. Marilin Rothman BILI, CONJUGATED 0.2 mg/dL Normal 0.0-0.2 [facility] Comment on above: Performed By: #### T SH, BMP #### [facility] [address] [place] [address] Dr. Marilin Rothman Bilirubin [Mass/Vol] 0.6 mg/dL Normal 0.2-1.0 [facility] Comment on above: Performed By: #### T SH, BMP #### [facility] [address] [address] [address] Marilin Rothman Globulin (S) [Mass/Vol] 3.2 g/dL Normal [facility] Comment on above: Performed By: #### T SH, BMP #### [facility] [address] [place] [address] Dr. Marilin Rothman Protein [Mass/Vol] 7.1 g/dL Normal 6.4-8.2 [facility] Comment on above: Performed By: #### T SH, BMP #### [facility] [address] [place] [address] Dr. Marilin Rothman PROF CHEM 8 (BAS METB)on Anion gap [Moles/Vol] 13.7 mmol/L Normal [facility] Comment on above: Performed By: #### T SH, BMP #### [facility] [address] [place] [address] Dr. Marilin Rothman Calcium [Mass/Vol] 9.3 mg/dL Normal 8.5-10.1 [facility] Comment on above: Performed By: #### T SH, BMP #### [facility] [address] [place] [address] Dr. Marilin Rothman Chloride [Moles/Vol] 96 mmol/L Critically low 98-107 [facility] Comment on above: Performed By: #### T SH, BMP #### [facility] [address] [place] [address] Dr. Marilin Rothman CO2 [Moles/Vol] 25.9 mmol/L Normal 21.0-32.0 [facility] Comment on above: Performed By: #### T SH, BMP #### [facility] [address] [place] [address] Dr. Marilin Rothman Creatinine [Mass/Vol] 1.10 mg/dL Normal 0.70-1.30 [facility] Comment on above: Performed By: #### T SH, BMP #### [facility] [address] [place] [address] Dr. Marilin Rothman EGFR-AF [place] >60 Normal >=60 [facility] Comment on above: Performed By: #### T SH, BMP #### [facility] [address] [address] [address] Marilin Rothamn EGFR-NON AF [place] >60 Normal >=60 [facility] Comment on above: Performed By: #### T SH, BMP #### [facility] [address] [address] [address] Marilin Rothman Glucose [Mass/Vol] 93 mg/dL Normal 74-106 [facility] Comment on above: Performed By: #### T SH, BMP #### [facility] [address] [address] [address] Marilin Rothman Potassium [Moles/Vol] 4.6 mmol/L Normal 3.5-5.1 [facility] Comment on above: Performed By: #### T SH, BMP #### [facility] [address] [place] [address] Dr. Marilin Rothman Sodium [Moles/Vol] 131 mmol/L Critically low 136-145 [facility] Comment on above: Performed By: #### T SH, BMP #### [facility] [address] [place] [address] Dr. Marilin Rothman Urea nitrogen [Mass/Vol] 14.0 mg/dL Normal 7.0-18.0 [facility] Comment on above: Performed By: #### T SH, BMP #### [facility] [address] [place] [address] Dr. Marilin Rothman Urea nitrogen/Creatinine [Mass ratio] 12.7 mg/mg Normal [facility] [place] Comment on above: Performed By: #### T SH, BMP #### [facility] [address] [place] [address] Dr. Marilin Rothman TSHon 07-27-2022 TSH 1.933 uIU/mL Normal 0.358-3.740 [facility] Comment on above: Performed By: #### T SH, BMP #### [facility] [address] [place] [address] Dr. Marilin Rothman VITAMIN D 25 OHon 07-27-2022 VIT D 25-OH 85.4 ng/mL Normal [facility] [place] Comment on above: Performed By: #### T SH, BMP #### [facility] [address] [address] [address] Marilni Rothman VIT D RANGES SEE BELOW Normal [facility] [place] Comment on above: Result Comment: <20 ng/mL Vit D deficient 20 - <30 ng/mL Vit D insufficient 30 - 100 ng/mL Vit D sufficient >100 ng/mL Potential Toxicity Performed By: #### T SH, BMP #### [facility] [address] [place] [address] Dr. Marilin Rothman ACID FAST SMEAR AND CXon Acid Fast Culture Negative Normal [facility] Comment on above: Result Comment: No a amos fast bacilli isolated after 6 weeks. Performed By: #### T SH, BMP #### [facility] [address] [place] [address] Dr. Marilin Rothman Acid Fast Smear Negative Normal [facility] Comment on above: Performed By: #### T ALEXANDER, BMP #### [facility] [address] [place] [address] Dr. Marilin Rothman AF[employer] Specimen Processing Direct Inoculation Normal [facility] Comment on above: Performed By: #### T ALEXANDER, BMP #### [facility] [address] [place] [address] Dr. Marilin Rothman FUNGAL CULTUREon 04-09-2022 Fungus (Mycology) Culture Final report Normal [facility] Comment on above: Performed By: #### C XFUN #### [facility] [address] [place] [address] Dr. Marilin Rothman Fungus Stain Final report Normal [facility] Comment on above: Performed By: #### C XFUN #### [facility] [address] [place] [address] Dr. Marilin Rothman Result 1 Comment Normal [facility] Comment on above: Result Comment: RITA/ Calcofluor preparation: no fungus observed. Performed By: #### C XFUN #### [facility] [address] [place] [address] Dr. Marilin Rothman Result Comment: No y east or mold isolated after 4 weeks. LOWER RESPIRATORY CULTUREon 03-14-2022 Lower Respiratory Culture Final report Normal [facility] Comment on above: Performed By: #### C XLORES #### [facility] [address] [place] [address] Dr. Mariiln Rothman Result 1 Comment Normal [facility] Comment on above: Result Comment: Rout ine respiratory carlito Performed By: #### C XLORES #### [facility] [address] [address] [address] Marilin Rothman CYTOLOGYon 03-11-2022 SENT TO REF LAB 03/12/22 Normal [facility] Comment on above: Performed By: #### C YTO #### [facility] [address] [place] [address] Dr. Marilin MCCORMACK STAINon 03-11-2022 COMMENTS NO ORGANISMS OBSERVED Normal [facility] Comment on above: Performed By: #### G STAIN #### [facility] [address] [place] [address] Dr. Marilin Rothman DIPHTHEROIDS Normal [facility] Comment on above: Performed By: #### G STAIN #### [facility] [address] [place] [address] Dr. Marilin Rothman EPITHELIALS FEW Normal [facility] Comment on above: Performed By: #### G STAIN #### [facility] [address] [place] [address] Dr. Marilin Rothman FUNGAL ELEMENTS Normal [facility] Comment on above: Performed By: #### G STAIN #### [facility] [address] [place] [address] Dr. Marilin MCCORMACK NEG BACILLI Normal [facility] Comment on above: Performed By: #### G STAIN #### [facility] [address] [address] [address] Marilin MCCORMACK NEG DIPPLOCOCCI Normal [facility] Comment on above: Performed By: #### G STAIN #### [facility] [address] [place] [address] Dr. Marilin Rothman GRAM POS BACILLI Normal [facility] Comment on above: Performed By: #### G STAIN #### [facility] [address] [place] [address] Dr. Marilin Rothman GRAM POSITIVE COCCI Normal [facility] Comment on above: Performed By: #### G STAIN #### [facility] [address] [address] [address] Marilin Rothman GRAM STAIN SOURCE R. LOWER LOBE LAVAGE Normal [facility] Comment on above: Performed By: #### G STAIN #### [facility] [address] [place] [address] Dr. Marilin Rothman GS_DIPTH [facility] Comment on above: Performed By: #### G STAIN #### [facility] [address] [place] [address] Dr. Marilin Rothman WBC FEW [facility] Comment on above: Performed By: #### G STAIN #### [facility] [address] [place] [address] Dr. Marilin Rothman IMMUNOGLOBULIN E, TOTALon Immunoglobulin E, Total 129 IU/mL Normal 6-495 [facility] Comment on above: Performed By: #### I GETOT #### [facility] [address] [place] [address] Dr. Marilin Rothman CBC AUTO DIFFon 03-01-2022 BASO # 0.1 103/ul Normal 0.0-0.1 [facility] Comment on above: Performed By: #### T SH, BMP #### [facility] [address] [place] [address] Dr. Marilin Rothman Basophils/100 WBC (Bld) 0.9 % Normal 0.2-2.0 [facility] Comment on above: Performed By: #### T SH, BMP #### [facility] [address] [place] [address] Dr. Marilin Rothman EO # 0.7 103/ul Normal 0.0-0.7 [facility] [place] Comment on above: Performed By: #### T SH, BMP #### [facility] [address] [place] [address] Dr. Marilin Rothman Eosinophils/100 WBC (Bld) 9.2 % Critically high 0.9-7.0 [facility] Comment on above: Performed By: #### T SH, BMP #### [facility] [address] [place] [address] Dr. Marilin Rothman Erythrocyte distribution width (RBC) [Ratio] 13.0 % Normal 11.0-15.0 [facility] Comment on above: Performed By: #### T SH, BMP #### [facility] [address] [place] [address] Dr. Marilin Rothman Hematocrit (Bld) [Volume fraction] 39.5 % Critically low 42.0-54.0 [facility] Comment on above: Performed By: #### T SH, BMP #### [facility] [address] [place] [address] Dr. Marilin Rothman Hemoglobin (Bld) [Mass/Vol] 13.0 g/dL Critically low 14.0-18.0 [facility] Comment on above: Performed By: #### T SH, BMP #### [facility] [address] [place] [address] Dr. Marilin Rothman IG # 0.03 10e3/ul Normal 0.00-0.03 [facility] Comment on above: Performed By: #### T SH, BMP #### [facility] [address] [place] [address] Dr. Marilin Rothman IG % 0.4 % Normal 0.0-0.5 [facility] Comment on above: Performed By: #### T SH, BMP #### [facility] [address] [place] [address] Dr. Marilin Rothman LYMPH # 1.1 103/ul Critically low 1.2-3.8 [facility] Comment on above: Performed By: #### T SH, BMP #### [facility] [address] [place] [address] Dr. Marilin Rothman Lymphocytes/100 WBC (Bld) 14.2 % Critically low 20.5-60.0 [facility] Comment on above: Performed By: #### T SH, BMP #### [facility] [address] [place] [address] Dr. Marilin Rothman MANUAL DIFF REQ NO Normal [facility] Comment on above: Performed By: #### T SH, BMP #### [facility] [address] [place] [address] Dr. Marilin Rothman MCH (RBC) [Entitic mass] 32.2 pg Normal 25.9-34.0 [facility] Comment on above: Performed By: #### T SH, BMP #### [facility] [address] [place] [address] Dr. Marilin Rothman MCHC (RBC) [Mass/Vol] 32.9 g/dL Normal 29.9-35.2 [facility] Comment on above: Performed By: #### T SH, BMP #### [facility] [address] [place] [address] Dr. Marilin Rothman MCV (RBC) [Entitic vol] 97.8 fL Critically high 80.0-94 .0 [facility] Comment on above: Performed By: #### T SH, BMP #### [facility] [address] [place] [address] Dr. Marilin Rothman MONO # 0.9 103/ul Critically high 0.3-0.8 [facility] Comment on above: Performed By: #### T SH, BMP #### [facility] [address] [place] [address] Dr. Marilin Rothman Monocytes/100 WBC (Bld) 11.8 % Normal 1.7-12.0 [facility] Comment on above: Performed By: #### T SH, BMP #### [facility] [address] [place] [address] Dr. Marilin Rothman NEUT # 4.7 103/ul Normal 1.4-6.5 [facility] Comment on above: Performed By: #### T SH, BMP #### [facility] [address] [place] [address] Dr. Marilin Rothman Neutrophils/100 WBC (Bld) 63.5 % Normal 43.0-75.0 [facility] Comment on above: Performed By: #### T SH, BMP #### [facility] [address] [place] [address] Dr. Marilin Rothman Platelet mean volume (Bld) [Entitic vol] 8.7 fL Critically low 9.5-13.5 [facility] Comment on above: Performed By: #### T ALEXANDER, BMP #### [facility] [address] [place] [address] Dr. Marilin Rothman PLT 250 103/ul Normal 150-450 [facility] Comment on above: Performed By: #### T SH, BMP #### [facility] [address] [place] [address] Dr. Marilin Rothman RBC 4.04 106/ul Critically low 4.70-6.10 [facility] [place] [facility] Comment on above: Performed By: #### T ALEXANDER, BMP #### [facility] [address] [place] [address] Dr. Marilin Rothman WBC 7.5 103/ul Normal 4.0-11.0 [facility] Comment on above: Performed By: #### T ALEXANDER, BMP #### [facility] [address] [place] [address] Dr. Marilin Rothman PROTIMEon 03-01-2022 INR Coag (PPP) [Relative time] 0.97 {INR} Normal [facility] Comment on above: Performed By: #### T ALEXANDER, BMP #### [facility] [address] [place] [address] Dr. Marilin Rothman INR GUIDELINES SEE BELOW Normal [facility] Comment on above: Result Comment: TOAN RED INR: 2.0 - 3.0 CONDITIONS NOT LISTED BELOW 2.5 - 3.5 FOR PROSTHETIC HEART VALVE REPLACEMENT 2.5 - 3.5 RECURRENT THROMBOSIS Performed By: #### T ALEXANDER, BMP #### [facility] [address] [place] [address] Dr. Marilin Rothman PT Coag (PPP) [Time] 10.5 s Normal 9.0-11.6 The [facility] Comment on above: Performed By: #### T ALEXANDER, BMP #### [facility] [address] [place] [address] Dr. Marilin Rothman PTTon 03-01-2022 aPTT Coag (Bld) [Time] 27.5 s Normal 22.3-36.2 Th e [facility] Comment on above: Performed By: #### T SH, BMP #### [facility] [address] [place] [address] Dr. Marilin Rothman ASPERGILLUS AB, QUANTITATIVE DIDon 02-28-2022 Aspergillus flavus Negative Normal Neg:<1:1 [facility] Comment on above: Performed By: #### T SH, BMP #### [facility] [address] [place] [address] Dr. Marilin Rothman Aspergillus fumigatus Negative Normal Neg:<1:1 [facility] [place] Comment on above: Performed By: #### T SH, BMP #### [facility] [address] [place] [address] Dr. Marilin Rothman Aspergillus niger Negative Normal Neg:<1:1 [facility] Comment on above: Performed By: #### T SH, BMP #### [facility] [address] [place] [address] Dr. Marilin Rothman ANTI NEUTROPHIL CYTOPLASMIC AB (ANCA) PRon 02-26-2022 Antimyeloperoxidase (MPO) Abs <9.0 Normal 0.0-9.0 [facility] [place] Comment on above: Result Comment: Perf ormed at: BN Performed By: #### A NCAP #### [facility] [address] [place] [address] Dr. Marilin Rothman Antiproteinase 3 (VT-3) Abs <3.5 Normal 0.0-3.5 [facility] [place] Comment on above: Result Comment: Perf ormed at: BN Performed By: #### A NCAP #### [facility] [address] [place] [address] Dr. Marilin Rothman Atypical pANCA <1:20 Normal Neg:<1:20 [facility] Comment on above: Result Comment: The atypical pANCA pattern has been observed in a significant percentage of patients with ulcerative colitis, primary sclerosing cholangitis and autoimmune hepatitis. Performed at: CB Performed By: #### A NCAP #### [facility] [address] [place] [address] Dr. Marilin Rothman Cytoplasmic (C-ANCA) <1:20 Normal Neg:<1:20 [facility] [place] Comment on above: Result Comment: Perf ormed at: CB Performed By: #### A NCAP #### [facility] [address], [place] [address] Dr. Marilin Rothman Perinuclear (P-ANCA) <1:20 Normal Neg:<1:20 [facility] [place] Comment on above: Result Comment: The presence of positive fluorescence exhibiting P-ANCA or C-ANCA patterns alone is not specific for the diagnosis of Antwan's Granulomatosis (WG) or microscopic polyangiitis. Decisions about treatment should not be based solely on ANCA IFA results. The International ANCA Group Consensus recommends follow up testing of positive sera with both VT-3 and MPO-ANCA enzyme immunoassays. As many as 5% serum samples are positive only by EIA. Ref. AM J Clin Pathol 1999;111:507-513. Performed at: CB Performed By: #### A NCAP #### [facility] [address], [place] [address] LUNG CANCER SCREENINGon 0 02-24-2022 CT LUNG CANCER SCREENING EXAMINATION: CT LUNG CANCER SCREENING HISTORY: Nicotine dependence COMPARISON: CT chest 03/09/2021 TECHNIQUE: Axial, Coronal, and Sagittal images were created without the administration of IV contrast material. Dose reduction techniques were achieved by using automated exposure control and/or adjustment of mA and/or kV according to patient size and/or use of iterative reconstruction technique. FINDINGS: LUNGS: Calcified granuloma within left lung apex. No suspicious pulmonary nodules or infiltrates. Minimal emphysematous changes. PLEURA: No mass, effusion, or pneumothorax. VASCULATURE: No abnormality. WINDY: No mass or pathologic adenopathy. MEDIASTINUM: No mass or pathologic adenopathy. CARDIAC: No enlargement, pericardial thickening, or significant calcification. AORTA: No aneurysm or dissection. CHEST WALL: No mass or axillary adenopathy BONES: T9 mild compression fracture, stable to slightly progressed. LIMITED ABDOMEN: No suspicious findings. Limited images of the upper abdomen. OTHER: Negative. IMPRESSION: 1. LUNG SCREENING: Lung-RADS Category 2- Benign Appearance or Behavior. Nodules with a very low likelihood of becoming a clinically active cancer due to size or lack of growth. 2. Continue annual screening with LDCT in 12 months. 2. Chronic granulomatous disease. 3. T9 mild-moderate compression fracture; minimally progressed since prior study. Electronically authenticated by: BRADY RJPHYLLISJUSTIN Date: 2022-02-24 11:30 Normal The [facility] PROF CHEM 8 (BAS METB)on Anion gap [Moles/Vol] 8.6 mmol/L Normal The [facility] Comment on above: Performed By: #### B MP #### [facility] [address] [place] [address] [address] Marilin Rothman Calcium [Mass/Vol] 9.0 mg/dL Normal 8.5-10.1 [facility] Comment on above: Performed By: #### B MP #### [facility] [address] [place] [address] [address] Marilin Rothman Chloride [Moles/Vol] 100 mmol/L Normal 98-107 The [facility] Comment on above: Performed By: #### B MP #### [facility] [address] [place] [address] [address] Marilin Rothman CO2 [Moles/Vol] 30.5 mmol/L Normal 21.0-32.0 [facility] Comment on above: Performed By: #### B MP #### [facility] [address] [address] [address] Marilin Rothman Creatinine [Mass/Vol] 1.35 mg/dL Critically high 0.70-1.30 The [facility] Comment on above: Performed By: #### B MP #### [facility] [address] [address] [address] Marilin Rothman EGFR-AF [place] CITIZ[place] >60 Normal >=60 [facility] Comment on above: Performed By: #### B MP #### [facility] [address] [address] [address] Marilin Rothman EGFR-NON AF [place] CITIZ[place] 52 mL/min/1.73m2 Critically low >=60 The [facility] Comment on above: Performed By: #### B MP #### [facility] [address] [address] [address] Marilin Rothman Glucose [Mass/Vol] 100 mg/dL Normal 74-106 [facility] Comment on above: Performed By: #### B MP #### [facility] [address] [address] [address] Marilin Rothman Potassium [Moles/Vol] 4.1 mmol/L Normal 3.5-5.1 [facility] [place] Comment on above: Performed By: #### B MP #### [facility] [address] [place], [place] [address] Dr. Marilin Rothman Sodium [Moles/Vol] 135 mmol/L Critically low 136-145 Th [facility] Comment on above: Performed By: #### B MP #### [facility] [address] [address] [address] Marilin Rothman Urea nitrogen [Mass/Vol] 13.0 mg/dL Normal 7.0-18.0 [facility] [place] Comment on above: Performed By: #### B MP #### [facility] [address] [address] [address] Marilin Rothman Urea nitrogen/Creatinine [Mass ratio] 9.6 mg/mg Normal [facility] [place] Comment on above: Performed By: #### B MP #### [facility] [address] [address] [address] Marilin Rothman Cardiovascular Lab Reporton 08-22-2020 Cardiovascular Lab Report [facility] Patient Name: Mike Osei [facility] MR #: [id number] Physician: Sanket Reyes M.D. Department of Service Date: 08/21/2020 Medicine Birthdate: 1950 Division of Room #: Cardiology Adult Cardiovascular Services [place] [address] Cardiovascular Laboratory Report PR INTERN: Aron Anderson M.D. FINAL IMPRESSION: Successful angioplasty, drug coated balloon treatment, and stent placement in the right superficial femoral artery. PROCEDURES: Access under ultrasound, conscious sedation, right lower extremity angiography, right femoral artery angioplasty, and stent placement. METHOD: Written informed consent was obtained. Modified Seldinger technique was used to place a micropuncture inner cannula into the left common femoral artery under ultrasound guidance. Angiography was performed. The inner cannula was then exchanged for a 5-[place] sheath. Through the 5-[place] sheath, a Uni-Flush catheter was introduced into the abdominal aorta and the aortic bifurcation was traversed using a 0.035 hydrophilic guidewire. Next, the catheter was then placed in the right femoral artery and angiography was performed. A guidewire exchange was then performed removing the catheter and sheath and replacing these with a 6-[place] Renaldo through which a NaviCross was introduced along with a 0.035 glidewire. Using this combination, an occlusion in the right superficial femoral artery was traversed. However, an intraluminal location was not achieved. For this reason, ultrasound guidance was used to identify the right posterior tibial artery and a micropuncture inner cannula was introduced into the posterior tibial artery under ultrasound guidance. A V-18 control wire was then introduced through a CXI catheter through the posterior tibial artery. This was advanced in a retrograde fashion through the occlusion in the superficial femoral artery until the tip of the guidewire was introduced into the NaviCross catheter which was in place from left groin access. The wire was then externalized. The catheter was withdrawn from the left femoral sheath and a 5 mm balloon was then introduced over the wire and through the occlusion in the superficial femoral artery. The guidewire was then withdrawn from the right posterior tibial artery and hemostasis was achieved with manual pressure. A SpartaN(i)² wire was advanced antegrade through the catheter and into the right anterior tibial artery. Angioplasty was performed throughout the right superficial femoral artery. The catheter was then exchanged for a 7 mm balloon and angioplasty was performed throughout the superficial femoral artery. At this point, a guidewire was exchanged for a Magic torque and the sheath was exchanged for an Renaldo sheath with a Tuohy-Kenroy Adapter. Through this, a 6 mm x 250 mm Impact balloon was advanced and inflated in the superficial femoral artery with a duration of inflation of over 5 minutes. Angiography at this point revealed a flow limiting dissection in the proximal superficial femoral artery. This was treated with a 7 x 200 LifeStent. Subsequent inflation with a 6 mm balloon was achieved. Final angiography was performed. A 6-[place] Angio-Seal was deployed. Adequate hemostasis was achieved. There were no complications. At the conclusion of the procedure, the right posterior tibial pulse was palpable. ANGIOGRAPHY: Right lower extremity. 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 After angioplasty and stent placement, there was 0% residual with brisk antegrade flow. There was posterior tibial runoff to the foot. The anterior tibial and peroneal vessels were not completely visualized. Left lower extremity. This was a limited study and revealed mild plaque disease in the left common femoral artery with sheath placement appropriate for closure device use. COMMENT: The patient is a 70-year-old gentleman with lifestyle limiting claudication. He will be maintained on aspirin and Plavix and will have followup with Dr. Anderson including ultrasound imaging. Electronically Signed by: Sanket Reyes M.D. 08/28/2020 10:25 A Sanket Reyes M.D. Date Dict: 08/21/2020/01:28 P/Sanket Reyes M.D. Date Trans: 08/22/2020 02:59 A/noreen [id number] cc: Pool Garcia M.D. [address] [facility] [address] [place] [facility] Cardiovascular Lab Reporton 05-06-2020 Cardiovascular Lab Report [facility] Patient Name: Mike Osei [facility] MR #: [id number] Physician: Aron Mar Department of Brady Anderson Medicine Service Date: 05/05/2020 Division of Birthdate: 1950 Cardiology Room #: D [id number] Adult Cardiovascular Services [place] [address] Cardiovascular Laboratory Report INDICATION: The patient is a 70-year-old man with lifestyle limiting claudication. He recently underwent right lower extremity angiography that showed evidence of 100% occlusion of the right SFA at the ostium with reconstitution of the distal vessel via collateral circulation. He underwent attempt at recanalization of the occlusion from an antegrade approach and this failed. Therefore, he was brought today for attempt at recanalization from a retrograde access. PROCEDURES: 1. Access into the left common femoral artery under ultrasound guidance. 2. Limited left common femoral angiography. 3. Right lower extremity angiography. 4. Access into the right posterior tibial artery under ultrasound guidance. 5. Balloon angioplasty in the proximal right superficial femoral artery. 6. Use of [place] IVUS-guided reentry catheter. 7. 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 METHODS: Procedure was explained to the patient with risks and benefits. He signed informed consent. He was brought to logging rafter laborer in a fasting state. The left groin area was prepped and draped in usual fashion. Using ultrasound guidance and micropuncture technique, the left common femoral artery was accessed. The inner cannula was advanced. Limited left femoral angiography was performed followed by upsizing to a 6-C[place]an x 11 cm sheath. Next, a 5-[place] Uni-Flush catheter was advanced and placed in the distal abdominal aorta. An angled Glidewire was then used to cross the aortoiliac bifurcation and the catheter was advanced to the level of the right common femoral artery and then over a Magic Torque wire, this was exchanged along with the access sheath to a 6-[place] x 55 cm Renaldo sheath. Right lower extremity angiography was performed down to the level of the lower leg. Using ultrasound guidance and micropuncture technique, access was obtained in the right posterior tibial artery and the wire was advanced and the inner cannula of the micropuncture catheter was advanced. Angiography confirmed intraluminal position. Heparin was administered intravenously and therapeutic ACT confirmed during the rest of the procedure and additional heparin given as needed. A Command 0.014 inch wire was advanced through the right posterior tibial artery, however, this could not cross the distal cap of the superficial femoral artery occlusion. We exchanged the micropuncture inner cannula to a Finecross catheter which was used for extra-support to the wire, however, there was failure to cross retrogradely. We changed the wire to Ast[place] wire. This also failed to cross. At that time, we advanced an angled [place] catheter through the antegrade sheath over a straight Glidewire and we crossed subintimally proximally and advanced to the proximal to mid segment of the SFA. We advanced a hand cutter 5 x 40 mm balloon and used that balloon to perform reverse CART technique with multiple inflations using that balloon as well as an NC Quantum [place] 3.0 x 15 mm noncompliant balloon advanced through the retrograde wire for CART technique. Repeated multiple inflations and multiple attempts were performed at multiple levels. However, we were not able to join the 2 subintimal spaces and therefore, we abandoned this technique. We decided to go with the [place] reentry catheter from the antegrade access. This was then advanced to the subintimal space in the mid SFA over a [place] wire and using the standard technique, we identified under intravascular ultrasound the true lumen and once this was positioned in the 12 o'clock position, the needle was advanced the appropriate amount and after 2 attempts, the [place] wire was able to advance into the true lumen. This was confirmed as the wire came in parallel with the retrograde wire. However, at this point, while trying to remove the [place] catheter, the [place] wire got kinked and entangled, and we were not able to retrieve the [place] catheter over the wire and we had to remove the both wire and [place] catheter assembly together and therefore, lost access into the true lumen. We repeated this process again and we are able to advance the [place] catheter into position and multiple attempts at this point were made to gain access into the true lumen, however, those failed and we had to retrieve the [place] catheter and terminate the procedure at this time. The [place] catheter and the Renaldo sheath were removed and manual compression applied to the left common femoral area for hemostasis. The posterior tibial artery wire and catheter were removed and manual compression applied for hemostasis. The patient was given protamine 50 mg intravenously for reversal of his anticoagulation. He did have a mild episode of vasovagal reaction at the end of the procedure due to his significant back pain that resolved after administration of intravenous atropine and intravenous fluids. He was transferred to the cardiovascular recovery area. He will be admitted for overnight observation. CARE DIRECTOR RN: Shahzad Caballero MD. TOTAL FLUORO TIME: 101.28 minutes. TOTAL AIR KARMA: 2353 mGy. TOTAL CONTRAST VOLUME: 90 mL. FINDINGS AT ANGIOGRAPHY: The right superficial femoral artery is flush occluded at the ostium. There is reconstitution of the mid to distal SFA via collateral circulation coming from the profunda femoris. The distal SFA has moderately severe stenosis. The popliteal artery has mild disease. The posterior tibial artery is patent down to the level of the foot and takes off high at the level of the mid popliteal artery. The TP trunk is patent. The peroneal artery appears patent and the anterior tibial artery appears diffusely diseased and is likely occluded. LIMITED LEFT COMMON FEMORAL ANGIOGRAPHY: This showed access to be in the left common femoral artery with mild disease in the common femoral artery, but no obstructive lesions. RECOMMENDATIONS: 1. Continue current medical therapy. 2. The patient will be reviewed in clinic for options for revascularization of his right lower extremity. Electronically Signed by: Aron Anderson M.D. 05/10/2020 10:03 A Aron Anderson M.D. Date Dict: 05/05/2020/03:18 P/Aron Anderson M.D. Date Trans: 05/06/2020 05:57 A/noreen [id number] cc: Pool Garcia M.D. [address] [facility] [address] Normal [facility] APTTon 04-17-2020 aPTT Coag (Bld) [Time] 27.5 s Normal 25.0-35.0 Th e [facility] Comment on above: Order Comment: This order is a replacement of the rejected order with accession [id number]. Result Comment: ALL RESULTS MUST BE INTERPRETED WITH RESPECT TO BLOOD DRAWING ARTIFACT OR DILUTION ERROR OF ANTICOAGULANT AT THE TIME OF SAMPLING. THE APTT SHOULD NOT BE USED TO MONITOR UNFRACTIONATED HEPARIN THERAPY, THIS LABORATORY NO LONGER HAS AN ESTABLISHED THERAPEUTIC RANGE BASED ON THE APTT. IT IS RECOMMENDED THAT THE UFH - HEPARIN ASSAY (ANTI-XA ACTIVITY) BE USED FOR THIS PURPOSE. Performed By: #### 6 2586 #### [facility] [address] [place] [address], [facility] BASIC METABOLIC PANELon 06- Calcium [Mass/Vol] 8.4 mg/dL Low 8.6-10.3 [facility] Comment on above: Order Comment: No: D o not add to previous draw Performed By: #### 6 2586 #### [facility] [address] [place] [address], [facility] Chloride [Moles/Vol] 98 mmol/L Normal 98-107 [facility] Comment on above: Order Comment: No: D o not add to previous draw Performed By: #### 6 2586 #### [facility] [address] [place] [address], [place] CO2 [Moles/Vol] 25 mmol/L Normal 21-31 [facility] Comment on above: Order Comment: No: D o not add to previous draw Performed By: #### 6 2586 #### [facility] [address] [place] [address], [place] Creatinine [Mass/Vol] 1.26 mg/dL Normal 0.70-1.30 [facility] Comment on above: Order Comment: No: D o not add to previous draw Performed By: #### 6 2586 #### [facility] [address] [place] [address], [place] GFR/1.73 sq M predicted among blacks MDRD (S/P/Bld) [Vol rate/Area] mL/min/{1.73_m2} Normal >60 [facility] Comment on above: Order Comment: No: D o not add to previous draw Result Comment: Calc ulation may not be valid for patients over 70 years Performed By: #### 6 2586 #### [facility] [address] [place] [address], [place] GFR/1.73 sq M predicted among non-blacks MDRD (S/P/Bld) [Vol rate/Area] 56 ml/min/1.73sq m Abnormal >60 [facility] Comment on above: Order Comment: No: D o not add to previous draw Result Comment: Calc ulation may not be valid for patients over 70 years Performed By: #### 6 2586 #### [facility] [address] [place] [address], [place] Glucose [Mass/Vol] 123 mg/dL High 70-100 [facility] Comment on above: Order Comment: No: D o not add to previous draw Performed By: #### 6 2586 #### [facility] [address] [place] [address], [facility] Potassium [Moles/Vol] 3.6 mmol/L Normal 3.5-5.1 [facility] Comment on above: Order Comment: No: D o not add to previous draw Performed By: #### 6 2586 #### [facility] [address] [place] [address], [facility] Sodium [Moles/Vol] 129 mmol/L Low 136-145 [facility] Comment on above: Order Comment: No: D o not add to previous draw Performed By: #### 6 2586 #### [facility] [address] [place] [address], [facility] Urea nitrogen [Mass/Vol] 14 mg/dL Normal 7-25 [facility] Comment on above: Order Comment: No: D o not add to previous draw Performed By: #### 6 2586 #### [facility] [address] [place], [place] [address] CBC COMPLETE BLOOD COUNTon 0 6--2019 Erythrocyte distribution width (RBC) [Ratio] 14.2 % Normal 11.5-15.0 [facility] Comment on above: Order Comment: No: D o not add to previous draw Performed By: #### 6 2586 #### [facility] [address] [place] [address], [facility] Hematocrit (Bld) [Volume fraction] 32.2 % Low 39.0-50.0 [facility] Comment on above: Order Comment: No: D o not add to previous draw Performed By: #### 6 2586 #### [facility] [address] [place] [address], [facility] Hemoglobin (Bld) [Mass/Vol] 10.8 g/dL Low 13.0-17.0 [facility] Comment on above: Order Comment: No: D o not add to previous draw Performed By: #### 6 2586 #### [facility] [address] [place] [address], [facility] MCH (RBC) [Entitic mass] 32.7 pg Normal 27.0-33.0 [facility] Comment on above: Order Comment: No: D o not add to previous draw Performed By: #### 6 2586 #### [facility] [address] [place] [address], [facility] MCHC (RBC) [Mass/Vol] 33.5 g/dL Normal 32.0-35.0 [facility] Comment on above: Order Comment: No: D o not add to previous draw Performed By: #### 6 2586 #### [facility] [address] [facility] [place] [id number], [facility] MCV (RBC) [Entitic vol] 97.6 fL Normal 82.0-98.0 [facility] Comment on above: Order Comment: No: D o not add to previous draw Performed By: #### 6 2586 #### [facility] [address] [facility] [place] [id number], [facility] Nucleated RBC/100 WBC (Bld) [Ratio] 0 % Normal 0-0 [facility] Comment on above: Order Comment: No: D o not add to previous draw Performed By: #### 6 2586 #### [facility] [address] [facility] [place] [address], [facility] PLAT CNT 217 10*3/uL Normal 150-400 [facility] Comment on above: Order Comment: No: D o not add to previous draw Performed By: #### 6 2586 #### [facility] [address] [facility] [place] [address], [facility] RBC (Bld) [#/Vol] 3.30 10*6/uL Low 4.20-5.70 [facility] Comment on above: Order Comment: No: D o not add to previous draw Performed By: #### 6 2586 #### [facility] [address] [place], [place] [id number] [place] [address] WBC (Bld) [#/Vol] 7.83 10*3/uL Normal 4.00-10.60 [facility] Comment on above: Order Comment: No: D o not add to previous draw Performed By: #### 6 2586 #### [id number] [place] [address] CT ABDOMEN AND PELVIS WO CON TRASTon 04-17-2020 CT ABDOMEN AND PELVIS WO CONTRAST [facility] Department of Radiology [address] [place] [id number] Patient Name: MIKE OSEI : 1950 Sex: M Age: Race: White Pt. Location: [id number] Patient Status: O Ordered Date: 04/17/2020 12:55:00 AM Completed Date: 04/17/2020 01:38 AM Requesting Provider: YA HAYES Attending Provider: ARON ANDERSON V Report Copy To: Signs & Symptoms: Other History: See Comments Comments: Hematoma, s/p cardiac cath, now hypotensive, r/o retroperitoneal bleed. Exam: CT ABDOMEN AND PELVIS WO CONTRAST CT ABDOMEN AND PELVIS WO CONTRAST 04/17/2020 1:38 AM CLINICAL INDICATIONS: Other TECHNOLOGIST COMMENTS: Pt with episode of hypotension. BP now in 140's systolic. S/p cath procedure with left femoral approach. Pt c/o Low midline back pain. QUESTION FOR THE RADIOLOGIST: Hematoma, s/p cardiac cath, now hypotensive, r/o retroperitoneal bleed. PROTOCOL: Axial CT images of the abdomen and pelvis were obtained without IV contrast. TECHNIQUE: Multidetector CT axial slices of the abdomen and pelvis without IV contrast. Multiplanar reformats were performed and viewed on a separate workstation and reviewed to further define anatomy and possible pathology. All CT scans at this facility use dose modulation, iterative reconstruction, and/or weight based dosing when appropriate to reduce radiation dose to as low as reasonably achievable COMPARISON: None. FINDINGS: Bibasilar minimal atelectasis. No pericardial effusion. Small hiatal hernia. Liver demonstrates a noncirrhotic morphology. No focal masses identified given limitations of lack of intravenous contrast. Gallbladder is identified with vicarious excretion of contrast within the gallbladder. The spleen demonstrates multiple splenic granulomas. The adrenal glands are essentially unremarkable. Contrast excretion from the kidneys is identified with large amount of retained contrast in the bladder. Possible bladder diverticulum, axial image 434. The GI tract demonstrates no focal dilatation to suggest obstruction. Diverticulosis without CT evidence of acute diverticulitis. Fat-containing umbilical hernia. No free fluid or free intraperitoneal gas. There are several scattered prominent periaortic lymph nodes of uncertain etiology but are likely reactive. Fat stranding involving the left groin, likely site vascular access. No definitive hematoma. Enlarged prostate gland. Abdominal aorta is nonaneurysmal with moderate moderate amount of calcification. IVC is right-sided with an incidental note of a double renal vein, one is circumaortic, please see axial image 292 and 213. No acute fractures dislocations. IMPRESSION: No CT evidence of intraperitoneal or retroperitoneal hematoma. Postsurgical stranding around the likely venipuncture site of the left groin. Possible bladder diverticulum. Suggestion of a double renal vein, one being circumaortic. Approved by:Domingo Green04/17/2020 1:58 AM. I, Eliud Mcguire,have reviewed the images and reports Electronically signed: Eliud Mcguire. Transcribed by: [id number], User Resident: DOMINGO NELSON Electronically Signed by: ELIUD MCGUIRE @ 04/17/2020 02:34 AM I personally read this/these film(s) with this resident Normal [facility] Comment on above: Order Comment: Hemat alyssa, s/p cardiac cath, now hypotensive, r/o retroperitoneal bleed. Cardiovascular Lab Reporton 04-17-2020 Cardiovascular Lab Report [facility] Patient Name: Mike Osei [facility] MR #: [id number] Physician: Aron Mar Department of [facility] Service Date: 04/16/2020 Division of Birthdate: 1950 Cardiology Room #: 3AB [id number] Adult Cardiovascular Services [place] [address] Cardiovascular Laboratory Report INDICATION: Mike Osei is a 70-year-old man with complex medical history including coronary artery disease and peripheral vascular disease. He has lifestyle limiting claudication and has failed Pletal and exercise therapy. He was very limited due to his claudication and because of that he was referred for lower extremity angiography and intervention. Of note that he had reduced ABIs on the right. PROCEDURE: 1. Aortoiliac angiography. 2. Bilateral lower extremity angiography. 3. Limited left common femoral angiography. 4. Failed attempt at crossing of 100% occlusion of the right superficial femoral artery from the antegrade approach. METHODS: Procedure was explained to the patient with risks and benefits, he signed informed consent. He was brought to logging rafter laborer in a fasting state. The left groin area was prepped and draped in usual fashion. Using micropuncture technique and ultrasound guidance, the left common femoral artery was accessed. The inner cannula was advanced, limited femoral angiography was performed followed by upsizing to a 5-C[place]an x 11 cm sheath. Left lower extremity angiography was performed down to the level of the foot. A 5-[place] UniFlush catheter was advanced and placed in the distal abdominal aorta. Aortoiliac angiography was performed using power injection of contrast. An angled Glidewire was used to cross the aortoiliac bifurcation and the UniFlush catheter was advanced to the level of the right common femoral artery. Right lower extremity angiography was performed down to the level of the foot. Heparin was administered intravenously and therapeutic ACT confirmed during the rest of the procedure. An exchange length Magic Torque wire was advanced through the UniFlush catheter and used to exchange the catheter and access sheath to a 6-[place]an Renaldo sheath. Using an angled Glidewire mounted on a 0.035 inch CXI angled catheter, attempts were made to cross the occluded ostial SFA. However, the wire kept ongoing into subintimal position and there was inability to cross into the true lumen. The wire was exchanged to a 0.014 inch Command wire. However, this wire was unable to cross into the true lumen. After multiple attempts, we decided to stop the procedure at this point and bring the patient back for retrograde approach. The Renaldo sheath was retracted and removed and exchanged to a 6-[place]an x 11 cm sheath. The patient tolerated the procedure well. He was transferred to the cardiovascular recovery area. The access sheath will be removed and manual compression applied for hemostasis when the ACT is subtherapeutic, he will then be admitted for overnight observation. His right foot pulses were stable compared to baseline by Doppler. TOTAL FLUORO TIME: 31.16 minutes. TOTAL AIR KERMA: 707 mGy. TOTAL CONTRAST VOLUME: 80 mL. HEMODYNAMICS: AO 134/67, mean 92, LFA 144/71 mean 98, RFA 149/68 mean 98. FINDINGS AT ANGIOGRAPHY: Limited left femoral angiography: This showed access to be in the left common femoral artery with no obstructive lesions noted in the femoral artery or its proximal branches. Left lower extremity angiography: This showed a patent left SFA with mild diffuse disease with a patent left profunda femoris. The popliteal artery has minimal disease. The posterior tibial artery takes off high at the level of the knee and is patent down to the level of the foot. The tibioperoneal trunk as well as the anterior tibial and peroneal arteries are patent down to the level of the foot. Aortoiliac angiography: This showed mild diffuse disease in the distal abdominal aorta with patent aortoiliac bifurcation, common iliac, external iliac, and internal iliac arteries with mild disease, but no occlusive lesions. Right lower extremity angiography: This showed a patent common femoral and profunda femoris arteries with occluded right superficial femoral artery at its ostium. There is an extensive network of collaterals filling the SFA in its mid segment. There is diffuse high-grade disease in the mid to distal SFA with mild disease in the popliteal artery. The posterior tibial artery takes off high at the level of the knee and is patent to the level of the foot. The TP trunk appears to be patent and gives off anterior tibial and peroneal arteries that are faintly visualized on this angiogram and likely carry significant disease. SUMMARY OF THE FINDINGS: 1. Patent aortoiliac arterial system with mild disease. 2. Mild disease in the left lower extremity arteries. 3. Occluded right SFA at its ostium with reconstitution via collateral circulation from the profunda femoris at the level of the mid SFA. 4. Patent popliteal artery and posterior tibial artery. 5. Likely diseased right anterior tibial and peroneal arteries. 6. Failed attempt at crossing right SFA occlusion from an antegrade approach. RECOMMENDATIONS: 1. Continue current medical therapy. 2. The patient will be scheduled for intervention to the occluded right SFA via retrograde access. Electronically Signed by: Aron Anderson M.D. 04/20/2020 11:39 A Aron Anderson M.D. Date Dict: 04/16/2020/05:06 P/Aron Anderson M.D. Date Trans: 04/17/2020 06:23 A/noreen [id number] Normal [facility] LACTATE BLOODon 04-17-2020 Lactate [Moles/Vol] 0.9 mmol/L Normal 0.5-2.2 [facility] Comment on above: Order Comment: No: D o not add to previous draw Performed By: #### 6 2586 #### [facility] [address] [place] [address], [facility] PERFUSION BLOOD PANELon 03-25 BASE EXCESS 0.0 mmol/L Normal -2.0-3.0 [facility] Comment on above: Performed By: #### 3 0738 #### [facility] [address] [place] [address], [facility] Glucose [Mass/Vol] 118 mg/dL High 70-105 [facility] Comment on above: Performed By: #### 3 0738 #### [facility] [address] [place] [address], [facility] Hematocrit (Bld) [Volume fraction] 36 % Low 38-51 [facility] Comment on above: Performed By: #### 3 0738 #### [facility] [address] [place] [address], [facility] Hemoglobin (Bld) [Mass/Vol] 12.2 g/dL Normal 12.0-17.0 [facility] Comment on above: Performed By: #### 3 0738 #### [facility] [address] [facility] [place] [address], [facility] IONIZED CALCIUM 1.23 mmol/L Normal 1.12-1.32 [facility] Comment on above: Performed By: #### 3 0738 #### [facility] [address] [facility] [place] [address], [facility] Oxygen (Bld) [Partial pressure] 31.0 mm[Hg] Normal [facility] Comment on above: Performed By: #### 3 0738 #### [facility] [address] [facility] [place] [address], [facility] PCO2 42.2 mmHg Normal 41.0-51.0 [facility] Comment on above: Performed By: #### 3 0738 #### [facility] [address] [facility] [place] [address], [facility] pH (Bld) 7.38 [pH] Normal 7.31-7.41 [facility] Comment on above: Performed By: #### 3 0738 #### [facility] [address] [place] [address], [facility] Potassium [Moles/Vol] 3.9 mmol/L Normal 3.5-4.9 [facility] Comment on above: Performed By: #### 3 0738 #### [facility] [address] [place] [id number], [facility] Sodium [Moles/Vol] 132 mmol/L Low 138-146 [facility] Comment on above: Performed By: #### 3 0738 #### [facility] [address] POC GLUCOSE LABon 04-17-2020 Glucose [Mass/Vol] 126 mg/dL High 70-100 [facility] Comment on above: Performed By: #### 8 5499 #### [facility] [address] PROTHROMBIN TIMEon 0 INR Coag (PPP) [Relative time] 1.02 {INR} Normal 0.91-1.16 [facility] Comment on above: Order Comment: This order is a replacement of the rejected order with accession [id number] PATIENT NOT IN ROOM; WENT TO CT. Result Comment: ACCC P RECOMMENDED INR FOR WARFARIN THERAPY ------- CONDITION INR PROPHYLAXIS OF VENOUS THROMBOSIS 2-3 (HIGH-RISK SURGERY) TREATMENT OF VENOUS THROMBOSIS 2-3 TREATMENT OF PULMONARY EMBOLISM 2-3 PREVENTION OF SYSTEMIC EMBOLISM: 2-3 ACUTE MYOCARDIAL INFARCTION TISSUE HEART VALVES VALVULAR HEART DISEASE ATRIAL FIBRILLATION RECURRENT SYSTEMIC EMBOLISM MECHANICAL HEART VALVE 2.5-3.5 FROM: ORAL ANTICOAGULANTS. MECHANISM OF ACTION, CLINICAL EFFECTIVENESS, AND OPTIMAL THERAPEUTIC RANGE. CHEST 1995;108:231S-246S. Performed By: #### 6 2586 #### [facility] [address] PT Coag (PPP) [Time] 13.4 s Normal 12.3-14.8 [facility] Comment on above: Order Comment: This order is a replacement of the rejected order with accession [id number] PATIENT NOT IN ROOM; WENT TO CT. Result Comment: ALL RESULTS MUST BE INTERPRETED WITH RESPECT TO BLOOD DRAWING ARTIFACT OR DILUTION ERROR OF ANTICOAGULANT AT THE TIME OF SAMPLING. Performed By: #### 6 2586 #### [facility] [address] TROPONIN-Ion 04-17-2020 Troponin I.cardiac [Mass/Vol] 0.01 ng/mL Normal 0.00-0.04 [facility] Comment on above: Order Comment: No: D o not add to previous draw Result Comment: REFE RENCE RANGES: 0.00 - 0.04 ng/ml NORMAL 0.05 - 0.50 ng/ml INDETERMINATE > 0.50 ng/ml CONSISTENT WITH AN M.I. Performed By: #### 6 2586 #### [facility] [address] TYPE AND SCREENon 04-17-2020 ABO INTERPRETATION A Normal [facility] Comment on above: Performed By: #### 0 2024 #### [facility] [address] RH INTERPRETATION Positive Normal [facility] Comment on above: Performed By: #### 0 2024 #### [facility] [address] C REACTIVE PROTEINon 020 CRP [Mass/Vol] 13.5 mg/L High 0.0-7.0 [facility] Comment on above: Performed By: #### 0 2024 #### [facility] [address] CBC W/DIFFon 12-12-2019 ABS BASOPHILS 0.1 10*3/uL Normal 0.0-0.2 [facility] Comment on above: Performed By: #### 5 102, [address]648 #### [facility] [address] ABS IMM GRANS 0.1 10*3/uL Normal 0.0-0.2 [facility] Comment on above: Performed By: #### 5 102, 97256 #### [facility] [address] [place] [address], [facility] ABS NEUTROPHILS 4.3 10*3/uL Normal 1.6-7.6 [facility] Comment on above: Performed By: #### 5 102, 22572 #### [facility] [address] [place] [address], [place] Basophils/100 WBC (Bld) 0.8 % Normal 0.0-1.0 [facility] Comment on above: Performed By: #### 5 102, [address]1110 #### [facility] [address] [place] [address], [facility] Eosinophils (Bld) [#/Vol] 0.3 10*3/uL Normal 0.0-0.5 [facility] Comment on above: Performed By: #### 5 102, 06669 #### [facility] [address] [place] [address], [facility] Eosinophils/100 WBC (Bld) 4.6 % Normal 0.0-6.0 [facility] Comment on above: Performed By: #### 5 102, 26368 #### [facility] [address] [place] [address], [facility] Erythrocyte distribution width (RBC) [Ratio] 14.0 % Normal 11.5-15.0 [facility] Comment on above: Performed By: #### 5 102, 38044 #### [facility] [address] [place] [address], [facility] Hematocrit (Bld) [Volume fraction] 36.9 % Low 39.0-50.0 [facility] Comment on above: Performed By: #### 5 102, 22645 #### [facility] [address] [place] [address], [facility] Hemoglobin (Bld) [Mass/Vol] 12.2 g/dL Low 13.0-17.0 [facility] Comment on above: Performed By: #### 5 102, 00047 #### [facility] [address] [facility] [place] [place] [address], [facility] IMMATURE GRANS 0.9 % Normal 0.0-1.0 [facility] Comment on above: Performed By: #### 5 102, 79823 #### [facility] [address] [facility] [place] [address], [facility] Lymphocytes (Bld) [#/Vol] 1.0 10*3/uL Low 1.2-4.0 [facility] Comment on above: Performed By: #### 5 102, 07704 #### [facility] [address] [facility] [place] [address], [facility] Lymphocytes/100 WBC (Bld) 15.5 % Low 20.0-45.0 [facility] Comment on above: Performed By: #### 5 102, 95184 #### [facility] [address] [facility]. [address] MCH (RBC) [Entitic mass] 30.9 pg Normal 27.0-33.0 [facility] Comment on above: Performed By: #### 5 102, 552[address] #### [facility] [address] [facility] [place] [address], [facility] MCHC (RBC) [Mass/Vol] 33.1 g/dL Normal 32.0-35.0 [facility] Comment on above: Performed By: #### 5 102, 71847 #### [facility] [address] [facility] [place] [address], [facility] MCV (RBC) [Entitic vol] 93.4 fL Normal 82.0-98.0 [facility] Comment on above: Performed By: #### 5 102, 38814 #### [facility] [address] [facility] [place] [address], [facility] Monocytes (Bld) [#/Vol] 0.7 10*3/uL Normal 0.1-1.0 [facility] Comment on above: Performed By: #### 5 010, 87373 #### [facility] [address] [place] [address], [facility] MONOS 10.3 % Normal 5.0-12.0 [facility] Comment on above: Performed By: #### 5 102, 73191 #### [facility] [address] [place] [address], [place] Neutrophils/100 WBC (Bld) 67.9 % Normal 40.0-72.0 [facility] Comment on above: Performed By: #### 5 102, [address]86[address] #### [facility] [address] [place] [id number], [facility] Nucleated RBC/100 WBC (Bld) [Ratio] 0 % Normal 0-0 [facility] Comment on above: Performed By: #### 5 102, 55632 #### [facility] [address] [place] [address], [place] PLAT CNT 215 10*3/uL Normal 150-400 [facility] Comment on above: Performed By: #### 5 102, 45666 #### [facility] [address] [place] [address], [facility] RBC (Bld) [#/Vol] 3.95 10*6/uL Low 4.20-5.70 [facility] Comment on above: Performed By: #### 5 102, 20891 #### [facility] [address] [place] [address], [place] WBC (Bld) [#/Vol] 6.33 10*3/uL Normal 4.00-10.60 [facility] Comment on above: Performed By: #### 5 102, 98680 #### [facility] [address] [place] [address], [facility] SEDIMENTATION RATEon 020 SED RATE 30 mm/hr High 0-10 [facility] Comment on above: Performed By: #### 0 2024 #### [facility] [address] Operative Reporton 0 Operative Report MR#: [id number] [facility] Pt. Name: Mike Osei Room #: 0C Discharge Date: Birthdate: 1950 OPERATIVE REPORT DATE OF SURGERY: 11/26/2019 SURGEON: Donald Collier M.D. ASSISTANTS: 1. Ezra Padilla M.D. 2. Dmitry Andrade M.D. 3. Jose Manuel Waddell M.D. PREOPERATIVE DIAGNOSIS: Right knee wound measuring 3 x 1 cm. POSTOPERATIVE DIAGNOSIS: Right knee wound measuring 3 x 1 cm. PROCEDURE PERFORMED: 1. Irrigation and debridement down to the level of subcutaneous tissue of wound measuring 3 x 1 cm. 2. Secondary closure of wound. ANESTHESIA: General. IV FLUIDS: Per anesthesia records. BLOOD LOSS: Minimal. COMPLICATIONS: None. IMPLANTS: None. SPECIMENS: None. INDICATIONS FOR PROCEDURE: This is a 69-year-old male who had previously undergone a right knee irrigation, debridement, and arthrotomy performed Dr. Collier on 11/10/2019. Postoperatively, the patient had been doing well, but still had a small residual wound to the medial aspect of his knee. Examination of this wound showed inverting skin edges. The patient was then indicated for irrigation debridement and secondary wound closure. Written and verbal consent for procedure was obtained. DETAILS OF PROCEDURE: The patient was met in the preoperative holding area where side and cover procedure being performed, correct operative site were identified. The operative extremities marked attending's initials. The patient was taken back to the operating room and transferred to the operating table in supine position. He was placed under general anesthesia without complication. The patient's right lower extremity was then prepped and draped in the usual sterile fashion. A preoperative time-out was performed confirming the patient's identity, procedure to be performed, and correct operative site. Belen present was in agreement. We began by measuring the medial knee wound, which measured 3 x 1 cm. We then gently undermined the skin edges using a scalpel followed by a [employer] and curette. We debrided down to the subcutaneous tissue. All the tissue appeared healthy and there was healthy bleeding noted. We then irrigated this with a copious amount of diluted Betadine followed by normal saline. We then closed the deep dermal layer with 3-0 Vicryl suture and closed the skin with 3-0 Novafil suture in a horizontal mattress fashion. All counts were correct x2 at this time. The incision was then dressed with Xeroform, 4 x 4 gauze, Kerlix, and Mehrdad wrap. The sterile drapes were taken down and the patient was awoken from anesthesia without complication. He was transferred back to his hospital stretcher and taken to PACU in stable condition. POSTOPERATIVE PLAN: The patient will be weightbearing as tolerated to the right lower extremity. He will be discharged with a short course of pain medication and aspirin for DVT prophylaxis. The patient will follow up with Dr. Collier in clinic in approximately 10-14 days time for clinical check and suture removal. Dr. Collier was present for the critical portions of the case and otherwise immediately available to assist. He made all decisions regarding the patient's care. Electronically Signed by: Donald Collier M.D. 12/09/2019 11:01 A Donald Collier M.D. I was present for the entire procedure. Date Dict: 11/26/2019/12:51 P/Jose Manuel Waddell MD Date Trans: 11/26/2019 11:48 P/noreen [id number] Normal [facility] APTTon 11-26-2019 aPTT Coag (Bld) [Time] 29.8 s Normal 25.0-35.0 [facility] Comment on above: Result Comment: ALL RESULTS MUST BE INTERPRETED WITH RESPECT TO BLOOD DRAWING ARTIFACT OR DILUTION ERROR OF ANTICOAGULANT AT THE TIME OF SAMPLING. THE APTT SHOULD NOT BE USED TO MONITOR UNFRACTIONATED HEPARIN THERAPY, THIS LABORATORY NO LONGER HAS AN ESTABLISHED THERAPEUTIC RANGE BASED ON THE APTT. IT IS RECOMMENDED THAT THE UFH - HEPARIN ASSAY (ANTI-XA ACTIVITY) BE USED FOR THIS PURPOSE. Performed By: #### 0 2024 #### [facility] [address] [facility]. [address] POC GLUCOSE LABon 11-26-2019 Glucose [Mass/Vol] 100 mg/dL Normal 70-100 [facility] Comment on above: Performed By: #### 8 [id number] #### [facility] [address] [facility] [address] PROTHROMBIN TIMEon 0 INR Coag (PPP) [Relative time] 0.99 {INR} Normal 0.91-1.16 [facility] Comment on above: Result Comment: ACCC P RECOMMENDED INR FOR WARFARIN THERAPY ------- CONDITION INR PROPHYLAXIS OF VENOUS THROMBOSIS 2-3 (HIGH-RISK SURGERY) TREATMENT OF VENOUS THROMBOSIS 2-3 TREATMENT OF PULMONARY EMBOLISM 2-3 PREVENTION OF SYSTEMIC EMBOLISM: 2-3 ACUTE MYOCARDIAL INFARCTION TISSUE HEART VALVES VALVULAR HEART DISEASE ATRIAL FIBRILLATION RECURRENT SYSTEMIC EMBOLISM MECHANICAL HEART VALVE 2.5-3.5 FROM: ORAL ANTICOAGULANTS. MECHANISM OF ACTION, CLINICAL EFFECTIVENESS, AND OPTIMAL THERAPEUTIC RANGE. CHEST 1995;108:231S-246S. Performed By: #### 0 2024 #### [facility] [address] [facility] [place] [address], [facility] PT Coag (PPP) [Time] 13.1 s Normal 12.3-14.8 [facility] Comment on above: Result Comment: ALL RESULTS MUST BE INTERPRETED WITH RESPECT TO BLOOD DRAWING ARTIFACT OR DILUTION ERROR OF ANTICOAGULANT AT THE TIME OF SAMPLING. Performed By: #### 0 2024 #### [facility] [address] [place] [address], [facility] VANCOMYCIN TROUGHon 11-12-19 20 VANCOMYCIN TROU 9.0 mcg/mL Normal 5.0-20.0 [facility] Comment on above: Performed By: #### 0 2024 #### [facility] [address] [place] [address], [facility] BASIC METABOLIC PANELon 10-24 Calcium [Mass/Vol] 9.1 mg/dL Normal 8.6-10.3 [facility] Comment on above: Order Comment: Yes: Add to Previous draw if able Performed By: #### 0 2024 #### [facility] [address] [facility] [place] [address], [facility] Chloride [Moles/Vol] 100 mmol/L Normal 98-107 [facility] Comment on above: Order Comment: Yes: Add to Previous draw if able Performed By: #### 0 2024 #### [facility] [address] [place] [address], [facility] CO2 [Moles/Vol] 26 mmol/L Normal 21-31 [facility] Comment on above: Order Comment: Yes: Add to Previous draw if able Performed By: #### 0 2024 #### [facility] [address] [place] [address], [facility] Creatinine [Mass/Vol] 1.22 mg/dL Normal 0.70-1.30 [facility] Comment on above: Order Comment: Yes: Add to Previous draw if able Performed By: #### 0 2024 #### [facility] [address] [facility] [place] [address], [facility] GFR/1.73 sq M predicted among blacks MDRD (S/P/Bld) [Vol rate/Area] mL/min/{1.73_m2} Normal >60 [facility] Comment on above: Order Comment: Yes: Add to Previous draw if able Result Comment: Calc ulation may not be valid for patients over 70 years Performed By: #### 0 2024 #### [facility] [address] [place] [address], [facility] GFR/1.73 sq M predicted among non-blacks MDRD (S/P/Bld) [Vol rate/Area] 59 ml/min/1.73sq m Abnormal >60 [facility] Comment on above: Order Comment: Yes: Add to Previous draw if able Result Comment: Calc ulation may not be valid for patients over 70 years Performed By: #### 0 2024 #### [facility] [address] [place] [address], [place] Glucose [Mass/Vol] 97 mg/dL Normal 70-100 [facility] Comment on above: Order Comment: Yes: Add to Previous draw if able Performed By: #### 0 2024 #### [facility] [address] [place] [address], [place] Potassium [Moles/Vol] 4.0 mmol/L Normal 3.5-5.1 [facility] Comment on above: Order Comment: Yes: Add to Previous draw if able Performed By: #### 0 2024 #### [facility] [address] [place] [address], [place] Sodium [Moles/Vol] 132 mmol/L Low 136-145 [facility] Comment on above: Order Comment: Yes: Add to Previous draw if able Performed By: #### 0 2024 #### [facility] [address] [place] [address], [facility] Urea nitrogen [Mass/Vol] 17 mg/dL Normal 7-25 [facility] Comment on above: Order Comment: Yes: Add to Previous draw if able Performed By: #### 0 2024 #### [facility] [address] [place] [address], [facility] CBC COMPLETE BLOOD COUNTon 0 - Erythrocyte distribution width (RBC) [Ratio] 14.2 % Normal 11.5-15.0 [facility] Comment on above: Order Comment: Yes: Add to Previous draw if able Performed By: #### 6 2586 #### [facility] [address] [place] [id number], [facility] Hematocrit (Bld) [Volume fraction] 32.5 % Low 39.0-50.0 [facility] Comment on above: Order Comment: Yes: Add to Previous draw if able Performed By: #### 6 2586 #### [facility] [address] [place] [address], [facility] Hemoglobin (Bld) [Mass/Vol] 10.4 g/dL Low 13.0-17.0 [facility] Comment on above: Order Comment: Yes: Add to Previous draw if able Performed By: #### 6 2586 #### [facility] [address] [place] [address], [facility] MCH (RBC) [Entitic mass] 31.7 pg Normal 27.0-33.0 [facility] Comment on above: Order Comment: Yes: Add to Previous draw if able Performed By: #### 6 2586 #### [facility] [address] [place] [address], [facility] MCHC (RBC) [Mass/Vol] 32.0 g/dL Normal 32.0-35.0 [facility] Comment on above: Order Comment: Yes: Add to Previous draw if able Performed By: #### 6 2586 #### [facility] [address] [place] [address], [facility] MCV (RBC) [Entitic vol] 99.1 fL High 82.0-98.0 [facility] Comment on above: Order Comment: Yes: Add to Previous draw if able Performed By: #### 6 2586 #### [facility] [address] [place] [id number], [facility] Nucleated RBC/100 WBC (Bld) [Ratio] 0 % Normal 0-0 [facility] Comment on above: Order Comment: Yes: Add to Previous draw if able Performed By: #### 6 2586 #### [facility] [address] [place] [address], [facility] PLAT CNT 231 10*3/uL Normal 150-400 [facility] Comment on above: Order Comment: Yes: Add to Previous draw if able Performed By: #### 6 2586 #### [facility] [address] [place] [address], [facility] RBC (Bld) [#/Vol] 3.28 10*6/uL Low 4.20-5.70 [facility] Comment on above: Order Comment: Yes: Add to Previous draw if able Performed By: #### 6 2586 #### [facility] [address] [place] [address], [facility] WBC (Bld) [#/Vol] 8.34 10*3/uL Normal 4.00-10.60 [facility] Comment on above: Order Comment: Yes: Add to Previous draw if able Performed By: #### 6 2586 #### [facility] [address] [facility] [address] Operative Reporton 0 Operative Report MR#: [id number] [facility] Pt. Name: Mike Osei Room #: [id number] Discharge Date: Birthdate: 1950 OPERATIVE REPORT DATE OF SURGERY: 11/10/2019 SURGEON: Donald Collier M.D. PR INTERN: Jose Charles MD PREOPERATIVE DIAGNOSIS: Right knee septic arthritis. POSTOPERATIVE DIAGNOSIS: Right knee septic arthritis. PROCEDURE PERFORMED: Right knee arthrotomy and I and D. ANESTHESIA: General. FLUIDS: Per Anesthesia report. SPECIMENS: Intra op tissue sent for culture. BLOOD LOSS: Minimal. INDICATIONS FOR PROCEDURE: This is a 69-year-old male who has had right knee pain and swelling and presented to the orthopedic clinic on 11/09/2019, complaining of right knee pain. An outside orthopedic surgeon had reportedly aspirated the knee and the Gram stain had grown gram-positive cocci. Given this result, the patient was admitted with plans for surgery for I and D of the knee. The risks, benefits, and alternatives were discussed and the patient elected to proceed with the procedure. PROCEDURE IN DETAIL: The patient arrived to the preoperative holding area where the operative site was marked by the surgeon and the patient was then brought back to the operative table and placed supine on the operative table with a bump beneath his ipsilateral hip. The right leg was prepped and draped in normal sterile fashion. A time-out was called indicating the patient's name, laterality, and procedure to be performed. The tourniquet was raised and the site for incision was marked out. We made an approximately 6 cm medial incision over the medial aspect of the knee, carried down to the capsule and then made a medial parapatellar arthrotomy. At this time, the fluid was sent for culture and the synovectomy was performed and sent for culture as well. There was no gross purulence noted and the synovial fluid had a straw colored appearance. The knee joint was then copiously irrigated using 6 L of saline. After the irrigation and debridement had been completed, a Hemovac drain was placed into the joint. The arthrotomy site was then closed using #1 PDS. The overlying soft tissue was loosely approximated using 2-0 Vicryl. The skin incision was left open with wet-to-dry dressings. Dr. Collier was present for the entirety of the procedure. POSTOPERATIVE PLAN: The patient will be weightbearing as tolerated to the right lower extremity. We will keep him overnight until we have culture results the following day and then we will plan to have him discharged with ID recommendations and follow up in the upcoming week for wound evaluation. Electronically Signed by: Donald Collier M.D. 11/13/2019 02:04 P Donald Collier M.D. I was present for the mast and critical portions and I was otherwise immediately available to assist. Date Dict: 11/11/2019/08:28 Soto/Jose Charles MD Date Trans: 11/11/2019 09:49 A/noreen [id number] cc: Donald Collier M.D. [address] Dept. Of Orthopaedic Surgery [place] [address] Normal [facility] *ANAEROBIC CULTUREon 020 *ANAEROBIC CULTURE Clinical Report: (D) Specimen/Source: TISSUE/INTRAOP SPEC Collected: 11/10/2019 08:50 Status: Final Last Updated: 11/15/2019 07:46 (1) #3 R. KNEE SYNOVIUM #2 CULT RES (Final) No Anaerobes Isolated 5 Days Normal [facility] Comment on above: Order Comment: #3 R. KNEE SYNOVIUM #2 Performed By: #### 8 6002 #### [facility] [address] [place] [address], [facility] *ANAEROBIC CULTURE Clinical Report: (D) Specimen/Source: TISSUE/INTRAOP SPEC Collected: 11/10/2019 08:44 Status: Final Last Updated: 11/15/2019 07:46 (1) #2 R. KNEE SYNOVIUM #1 CULT RES (Final) No Anaerobes Isolated 5 Days Normal [facility] Comment on above: Order Comment: #2 R. KNEE SYNOVIUM #1 Performed By: #### 3 0312 #### [facility] [address] [place] [address], [facility] *ANAEROBIC CULTURE Clinical Report: (D) Specimen/Source: SWAB/INTRAOP SPEC Collected: 11/10/2019 08:43 Status: Final Last Updated: 11/15/2019 07:46 (1) #1 R. KNEE SYNOVIAL FLUID ON SWAB CULT RES (Final) No Anaerobes Isolated 5 Days Normal [facility] Comment on above: Order Comment: #1 R. KNEE SYNOVIAL FLUID ON SWAB Performed By: #### 8 [id number] #### [facility] [address] [place] [address], [facility] *BODY FLUID CULTUREon 2019 *BODY FLUID CULTURE Clinical Report: (D) Specimen/Source: FLUID/INTRAOP SPEC Collected: 11/10/2019 08:43 Status: Final Last Updated: 11/15/2019 10:58 (1) #1 R. KNEE SYNOVIAL FLUID ON SWAB GRAM (Final) Rare Polys No Bacteria Seen CULT RES (Final) No Growth Day 5 Normal [facility] Comment on above: Order Comment: #1 R. KNEE SYNOVIAL FLUID ON SWAB Performed By: #### 8 [id number] #### [facility] [address] [place] [address], [facility] *TISSUE CULTUREon 11-10-2019 *TISSUE CULTURE Clinical Report: (D) Specimen/Source: TISSUE/INTRAOP SPEC Collected: 11/10/2019 08:50 Status: Final Last Updated: 11/15/2019 10:59 (1) #3 R. KNEE SYNOVIUM #2 GRAM (Final) Rare Polys No Bacteria Seen CULT RES (Final) No Growth Day 5 Normal [facility] Comment on above: Order Comment: #3 R. KNEE SYNOVIUM #2 Performed By: #### 8 [id number] #### [facility] [address] [place], [place] [address] *TISSUE CULTURE Clinical Report: (D) Specimen/Source: TISSUE/INTRAOP SPEC Collected: 11/10/2019 08:44 Status: Final Last Updated: 11/15/2019 10:58 (1) #2 R. KNEE SYNOVIUM #1 GRAM (Final) Rare Polys No Bacteria Seen CULT RES (Final) No Growth Day 5 Normal [facility] Comment on above: Order Comment: #2 R. KNEE SYNOVIUM #1 Performed By: #### 8 [id number] #### [facility] [address] [place] [address], [facility] POC GLUCOSE LABon 11-10-2019 Glucose [Mass/Vol] 100 mg/dL Normal 70-100 [facility] Comment on above: Performed By: #### 8 6002 #### [facility] [address] [place] [address], [facility] TYPE AND SCREENon 11-10-2019 ABO INTERPRETATION A Normal [facility] Comment on above: Performed By: #### 6 2586 #### [facility] [address] [place] [address], [place] RH INTERPRETATION Positive Normal [facility] Comment on above: Performed By: #### 6 2586 #### [facility] [address] [facility]. [address] *MRSA/MSSA DNA NASALon 11-09 *MRSA/MSSA DNA NASAL Clinical Report: (D ) Specimen: NASAL SWAB Collected: 11/09/2019 19:00 Status: Final Last Updated: 11/10/2019 13:15 MSSA DNA (Final) Negative MRSA DNA (Final) Methicillin Resistant Staphylococcus aureus DNA Detected Normal [facility] Comment on above: Performed By: #### 8 [id number] #### [facility] [address] APTTon 11-09-2019 aPTT Coag (Bld) [Time] 29.3 s Normal 25.0-35.0 [facility] Comment on above: Result Comment: ALL RESULTS MUST BE INTERPRETED WITH RESPECT TO BLOOD DRAWING ARTIFACT OR DILUTION ERROR OF ANTICOAGULANT AT THE TIME OF SAMPLING. THE APTT SHOULD NOT BE USED TO MONITOR UNFRACTIONATED HEPARIN THERAPY, THIS LABORATORY NO LONGER HAS AN ESTABLISHED THERAPEUTIC RANGE BASED ON THE APTT. IT IS RECOMMENDED THAT THE UFH - HEPARIN ASSAY (ANTI-XA ACTIVITY) BE USED FOR THIS PURPOSE. Performed By: #### 6 2586 #### [facility] [address] [facility] [place] [address], [facility] BASIC METABOLIC PANELon 10-24 Calcium [Mass/Vol] 9.0 mg/dL Normal 8.6-10.3 [facility] Comment on above: Performed By: #### 0 0071 #### [facility] [address] [facility] [place] [address], [facility] Chloride [Moles/Vol] 94 mmol/L Low 98-107 [facility] Comment on above: Performed By: #### 0 0071 #### [facility] [address] [facility] [place] [address], [facility] CO2 [Moles/Vol] 26 mmol/L Normal 21-31 [facility] Comment on above: Performed By: #### 0 0071 #### [facility] [address] [facility] [place] [address], [facility] Creatinine [Mass/Vol] 1.40 mg/dL High 0.70-1.30 [facility] Comment on above: Performed By: #### 0 0071 #### [facility] [address] [place] [address], [place] GFR/1.73 sq M predicted among blacks MDRD (S/P/Bld) [Vol rate/Area] 60 ml/min/1.73sq m Abnormal >60 [facility] Comment on above: Result Comment: Calc ulation may not be valid for patients over 70 years Performed By: #### 0 0071 #### [facility] [address] [place] [address], [place] GFR/1.73 sq M predicted among non-blacks MDRD (S/P/Bld) [Vol rate/Area] 50 ml/min/1.73sq m Abnormal >60 [facility] Comment on above: Result Comment: Calc ulation may not be valid for patients over 70 years Performed By: #### 0 0071 #### [facility] [address] [place] [address], [place] Glucose [Mass/Vol] 106 mg/dL High 70-100 [facility] Comment on above: Performed By: #### 0 0071 #### [facility] [address] [place] [address], [place] Potassium [Moles/Vol] 3.9 mmol/L Normal 3.5-5.1 [facility] Comment on above: Performed By: #### 0 0071 #### [facility] [address] [place] [address], [place] Sodium [Moles/Vol] 128 mmol/L Low 136-145 [facility] Comment on above: Performed By: #### 0 0071 #### [facility] [address] [place] [address], [place] Urea nitrogen [Mass/Vol] 18 mg/dL Normal 7-25 [facility] Comment on above: Performed By: #### 0 0071 #### [facility] [address] [facility] [place] [address], [facility] CBC W/DIFFon 11-09-2019 ABS BASOPHILS 0.0 10*3/uL Normal 0.0-0.2 [facility] Comment on above: Performed By: #### 6 2586 #### [facility] [address] [facility] [place] [address], [facility] ABS IMM GRANS 0.1 10*3/uL Normal 0.0-0.2 [facility] Comment on above: Performed By: #### 6 2586 #### [facility] [address] ABS NEUTROPHILS 4.9 10*3/uL Normal 1.6-7.6 [facility] Comment on above: Performed By: #### 6 2586 #### [facility] [address] [facility] [place] [address], [facility] Basophils/100 WBC (Bld) 0.3 % Normal 0.0-1.0 [facility] Comment on above: Performed By: #### 6 2586 #### [facility] [address] [place] [address], [facility] Eosinophils (Bld) [#/Vol] 0.1 10*3/uL Normal 0.0-0.5 [facility] Comment on above: Performed By: #### 6 2586 #### [facility] [address] [facility] [place] [address], [facility] Eosinophils/100 WBC (Bld) 0.8 % Normal 0.0-6.0 [facility] Comment on above: Performed By: #### 6 2586 #### [facility] [address] [place] [address], [facility] Erythrocyte distribution width (RBC) [Ratio] 14.0 % Normal 11.5-15.0 [facility] Comment on above: Performed By: #### 6 2586 #### [facility] [address] [facility] [place] [place] [address], [facility] Hematocrit (Bld) [Volume fraction] 35.1 % Low 39.0-50.0 [facility] Comment on above: Performed By: #### 6 2586 #### [facility] [address] [facility] [place] [address], [facility] Hemoglobin (Bld) [Mass/Vol] 11.6 g/dL Low 13.0-17.0 [facility] Comment on above: Performed By: #### 6 2586 #### [facility] [address] [facility] [place] [address], [facility] IMMATURE GRANS 0.9 % Normal 0.0-1.0 [facility] Comment on above: Performed By: #### 6 2586 #### [facility] [address] [facility]. [address] Lymphocytes (Bld) [#/Vol] 0.7 10*3/uL Low 1.2-4.0 [facility] Comment on above: Performed By: #### 6 2586 #### [facility] [address] [place] [address], [facility] Lymphocytes/100 WBC (Bld) 11.2 % Low 20.0-45.0 [facility] Comment on above: Performed By: #### 6 2586 #### [facility] [address] [facility]. [address] MCH (RBC) [Entitic mass] 31.4 pg Normal 27.0-33.0 [facility] Comment on above: Performed By: #### 6 2586 #### [facility] [address] [place] [address], [facility] MCHC (RBC) [Mass/Vol] 33.0 g/dL Normal 32.0-35.0 [facility] Comment on above: Performed By: #### 6 2586 #### [facility] [address] [facility] [place] [address], [facility] MCV (RBC) [Entitic vol] 95.1 fL Normal 82.0-98.0 T he [facility] Comment on above: Performed By: #### 6 2586 #### [facility] [address] [facility] [place] [address], [facility] Monocytes (Bld) [#/Vol] 0.8 10*3/uL Normal 0.1-1.0 [facility] Comment on above: Performed By: #### 6 2586 #### [facility] [address] MONOS 12.4 % High 5.0-12.0 [facility] Comment on above: Performed By: #### 6 2586 #### [facility] [address] Neutrophils/100 WBC (Bld) 74.4 % High 40.0-72.0 [facility] Comment on above: Performed By: #### 6 2586 #### [facility] [address] Nucleated RBC/100 WBC (Bld) [Ratio] 0 % Normal 0-0 [facility] Comment on above: Performed By: #### 6 2586 #### [facility] [address] [place] [address], [facility] PLAT CNT 233 10*3/uL Normal 150-400 [facility] Comment on above: Performed By: #### 6 2586 #### [facility] [address] [place] [address], [facility] RBC (Bld) [#/Vol] 3.69 10*6/uL Low 4.20-5.70 [facility] Comment on above: Performed By: #### 6 2586 #### [facility] [address] WBC (Bld) [#/Vol] 6.54 10*3/uL Normal 4.00-10.60 [facility] Comment on above: Performed By: #### 6 2586 #### [address] KNEE RIGHT 3 VWSon 0 KNEE RIGHT 3 VWS [facility] Department of Radiology [address] [place] [id number] Patient Name: MIKE OSEI : 1950 Sex: M Age: Race: White Pt. Location: Patient Status: O Ordered Date: 11/09/2019 6:50:00 PM Completed Date: 11/09/2019 07:18 PM Requesting Provider: DONALD COLLIER Attending Provider: DONALD COLLIER Report Copy To: Signs & Symptoms: M00.9 Pyogenic arthritis, unspecified I10 History: Carol Comments: , Views (X-RAY, KNEE): Radiologic Protocol , Weight Bearing?: Y , Views (X-RAY, KNEE): Radiologic Protocol , Weight Bearing?: Y , , , Ordering Provider - DONALD COLLIER MD , Exam: KNEE RIGHT 3 VWS KNEE RIGHT 3 VWS 11/09/2019 7:18 PM SIGNS AND SYMPTOMS: M00.9 Pyogenic arthritis, unspecified I10 TECHNOLOGIST COMMENTS: pt states he has had right knee pain since 07/2019, no known injury. Most of his pain is in the anterior medial portion of right knee. QUESTION FOR THE RADIOLOGIST: , Views (X-RAY, KNEE): Radiologic Protocol , Weight Bearing?: Y , Views (X-RAY, KNEE): Radiologic Protocol , Weight Bearing?: Y , , , Ordering Provider - DONALD COLLIER MD , PROTOCOL: AP,Lateral and sunrise views were obtained. COMPARISON: None FINDINGS: Soft tissues: Moderate to large suprapatellar joint effusion. There is a small focus of gas in the superior aspect of the joint recess. Is uncertain whether this raises to recent intervention versus infectious process. Bones: No acute osseous abnormality. Joints: Tricompartmental DJD. IMPRESSION: No acute osseous abnormality. Tricompartmental DJD. Large knee joint effusion with a small amount of gas seen in the superior aspect of the fusion which could potentially relate to recent procedure. Clinical correlation is recommended. If no recent intervention infectious process from gas-forming organism cannot be fully excluded. Approved by:Tonya Valerio11/09/2019 10:29 PM. I, Galen Kruse,have reviewed the imagers and reports Electronically signed: Galen Kruse. Transcribed by: [email or web address], User Resident: TONYA COPE Electronically Signed by: GALEN KRUSE @ 11/10/2019 09:54 AM I personally read this/these film(s) with this resident Normal [facility] Comment on above: Order Comment: , Glynn ws (X-RAY, KNEE): Radiologic Protocol , Weight Bearing?: Y , Views (X-RAY, KNEE): Radiologic Protocol , Weight Bearing?: Y , , , Ordering Provider - DONALD COLLIER MD , PROTHROMBIN TIMEon 0 INR Coag (PPP) [Relative time] 0.99 {INR} Normal 0.91-1.16 [facility] Comment on above: Result Comment: ACCC P RECOMMENDED INR FOR WARFARIN THERAPY ------- CONDITION INR PROPHYLAXIS OF VENOUS THROMBOSIS 2-3 (HIGH-RISK SURGERY) TREATMENT OF VENOUS THROMBOSIS 2-3 TREATMENT OF PULMONARY EMBOLISM 2-3 PREVENTION OF SYSTEMIC EMBOLISM: 2-3 ACUTE MYOCARDIAL INFARCTION TISSUE HEART VALVES VALVULAR HEART DISEASE ATRIAL FIBRILLATION RECURRENT SYSTEMIC EMBOLISM MECHANICAL HEART VALVE 2.5-3.5 FROM: ORAL ANTICOAGULANTS. MECHANISM OF ACTION, CLINICAL EFFECTIVENESS, AND OPTIMAL THERAPEUTIC RANGE. CHEST 1995;108:231S-246S. Performed By: #### 6 [id number] #### [facility] [address] PT Coag (PPP) [Time] 13.1 s Normal 12.3-14.8 [facility] Comment on above: Result Comment: ALL RESULTS MUST BE INTERPRETED WITH RESPECT TO BLOOD DRAWING ARTIFACT OR DILUTION ERROR OF ANTICOAGULANT AT THE TIME OF SAMPLING. Performed By: #### 6 [id number] #### [facility] [address] [facility] [place] [address], [facility] RBC'S 2 UNITSon 11-09-2019 CROSSMATCH INTERP 1 COMP Normal [facility] Comment on above: Performed By: #### [id number] #### [facility] [address] [facility] [place] [address], [facility] CROSSMATCH INTERP 2 COMP Normal [facility] Comment on above: Performed By: #### [id number] #### [facility] [address] [facility] [address] PRODUCT CODE 1 E0336 Normal [facility] Comment on above: Performed By: #### [id number] #### [facility] [address] [place] [address], [place] PRODUCT CODE 2 E0336 Normal [facility] Comment on above: Performed By: #### [id number] #### [facility] [address] [place] [address], [place] PRODUCT STATUS 1 RE Normal [facility] Comment on above: Result Comment: Resu lt changed by IF on 11/14/2019 06:36. The previous value was XM. Performed By: #### 8 [id number] #### [facility] [address] [place] [address], [place] PRODUCT STATUS 2 RE Normal [facility] Comment on above: Result Comment: Resu lt changed by IF on 11/14/2019 06:36. The previous value was XM. Performed By: #### 8 [id number] #### [facility] [address] [place] [address], [place] UNIT ABO 1 A Normal [facility] Comment on above: Performed By: #### 8 [id number] #### [facility] [address] [place] [address], [place] UNIT ABO 2 A Normal [facility] Comment on above: Performed By: #### 8 [id number] #### [facility] [address] [place] [address], [place] UNIT ID 1 [id number] Normal [facility] Comment on above: Performed By: #### 8 [id number] #### [facility] [address] [place] [address], [place] UNIT ID 2 [id number] Normal [facility] Comment on above: Performed By: #### 8 [id number] #### [facility] [address] [place] [address], [place] UNIT RH 1 Positive Normal [facility] Comment on above: Performed By: #### 8 [id number] #### [facility] [address] [place] [address], [facility] UNIT RH 2 Positive Normal [facility] Comment on above: Performed By: #### 8 [id number] #### [facility] [address] [place] [address], [facility] Vital Signs Date Time Vital Sign Value Performing Clinician Facility 05-24-2023 10:25-0400 Body height 176.53 cm Katiana Kemp Other [facility] Other 05-24-2023 10:25-0400 Body mass index (BMI) [Ratio] 31.2 kg/m2 Katiana Kemp Other [facility] Other 05-24-2023 10:25-0400 Body weight 97.25 kg Katiana Kemp Other [facility] Other 05-24-2023 10:25-0400 Diastolic blood pressure 65 mm[Hg] Katiana Kemp Other [facility] Other 05-24-2023 10:25-0400 Respiratory rate 18 /min Katiana Kemp Other [facility] Other 05-24-2023 10:25-0400 SaO2% (BldA) [Mass fraction] 100 % Katiana Kemp Other [facility] Other 05-24-2023 10:25-0400 Systolic blood pressure 142 mm[Hg] Katiana Kemp Other [facility] Other Encounters Encounter Date Encounter Type Care Provider Facility Start: 05-24-2023 End: 05-24-2023 ambulatory Katiana Kemp Other [facility] Other Start: 05-24-2023 Office outpatient ne w 20 minutes Katiana Kemp [facility] Start: 2023 End: 01-28-2023 ambulatory HEYDI VORA Facility:[facility]1 Start: 01-13-2023 End: 01-14-[address] POOL GARCIA Facility:[facility] Start: 01-11-2023 End: 01-11-2023 ambulatory HEYDI VORA Facility:[facility] Start: 12-14-2022 End: 12-14-2022 ambulatory [facility] Start: 12-07-2022 End: 12-08-[address] SCOTT CHAUHAN . Facility:[facility] Start: 11-02-2022 End: 11-03-[address] SCOTT CHAUHAN . Facility:[facility] Start: 10-26-2022 End: 10-27-[address] SCOTT CHAUHAN . Facility:[facility] Start: 10-26-2022 End: 10-27-[address] SCOTT CHAUHAN . Facility: Start: 07-27-2022 End: 07-28-[address] POOL GARCIA Facility:[facility] Start: 03-11-2022 End: 03-11-2022 ambulatory LEIGHA PEDRAZA . Facility: Start: 03-03-2022 Encounter for preprocedural cardiovascular examination [facility] . [facility] Start: 03-03-2022 Encounter for preprocedural laboratory examination [facility] . [facility] Start: 03-01-2022 End: 03-02-2022 ambulatory LEIGHA PEDRAZA . Facility: Start: 03-01-2022 End: 03-02-2022 Encounter for preprocedural cardiovascular examination LEIGHA PEDRAZA . Facility:[facility]1 Start: 02-24-2022 End: 02-25-[address] BRADY MORRIS Facility: Start: 08-21-2020 End: 08-22-2020 Patient encounter procedure PROVIDER UNKNOWN Facility:[facility] Start: 05-05-2020 End: 05-06-2020 Patient encounter procedure PROVIDER UNKNOWN Facility:[facility] Start: 04-16-2020 End: 04-17-2020 Patient encounter procedure PROVIDER UNKNOWN Facility:[facility] Start: 11-26-2019 End: 11-27-2019 Patient encounter procedure [place] Facility:[facility] Start: 11-09-2019 End: 11-13-2019 Evaluation and management of inpatient [place] Facility:[facility] Procedures Date Procedure Procedure Detail Performing Clinician Start: 07-27-[address] SCOTT CHAUHAN . Comment on above: Performed By: #### T SH, BMP #### [facility] [address] [address] [address] Marilin Rothman Start: 04-17-2020 Antibody screen Comment on above: Performed By: #### 0 5 #### [facility] [address] Start: 11-26-2019 Anes integ extremiti es ant trunk & perineum nos YA [place] Start: 11-26-2019 LATE CLOSURE OF WOUND N ABIL EBRAHEIM Start: 11-10-2019 EXCISION OF RIGHT KN EE JOINT, OPEN APPROACH DONALD EBRAHEIM Start: 11-10-2019 Antibody screen Comment on above: Performed By: #### 6 [id number] #### [facility] [address] [facility] [address] Payers Date Payer Category Payer Unknown [id number] 1961 Medicare [id number] 1961 Medicare [id number] 1950 Unknown [id number] 2.16.8 [id number] 1950 Unknown [id number] 2.16.8 [id number] 1950 Unknown [id number] 2.16.8 40.1.310476.3.579.2.647 1950 Unknown [id number] 2.16.8 40.1.291233.3.579.2.647 1950 Unknown [id number] 2.16.8 40.1.478901.3.579.2.647 1950 Unknown [id number] 2.16.84 0.1.459677.3.579.2.593 1950 Unknown [id number] 2.16.84 0.1.416024.3.579.2.593 1950 Unknown [id number] 2.16.84 0.1.557783.3.579.2.593 1950 Unknown [id number] 2.16.84 0.1.032960.3.579.2.593 1948 Unknown [id number] 2.16.84 0.1.529292.3.579.2.593 1948 Unknown [id number] 2.16.84 0.1.207997.3.579.2.593 1948 Unknown [id number] 2.16.84 0.1.807112.3.579.2.593 1950 Unknown [id number] 2.16.84 0.1.241471.3.579.2.593 1948 Unknown [id number] 2.16.84 0.1.559307.3.579.2.593 1950 Unknown [id number] 2.16.84 0.1.252801.3.579.2.593 1950 Unknown [id number] 2.16.84 0.1.549021.3.579.2.593 Medicare [id number] Social History Date Type Detail Facility Sex Assigned At [facility] Other Evaluation note 05-24-2023 Note Date & Type Note Facility 05-24-2023 Evaluation note Encounter Date Diagnosis Assessment Notes May, Acute gout of right wrist, unspecified cause (ICD-10 - M10.9) Gout home care material was printed, Low-purine diet material was printed Discussed with patient exam and history is highly suspicious for gout although this is not a frequent location for gout to present it is possible in the wrist. Patient had rapid onset swelling, erythema, warmth, significant pain even to light palpation to wrist joint area. Has not had any injury. Discussed with patient we will treat with prednisone taper. Finish entire course. Take steroid with food. Ice and elevation encouraged. May use Tylenol for pain. Discussed other consideration is cellulitis although more highly suspect gout based on exam and history. We will also cover with doxycycline. Finish entire course. Patient is advised to follow-up with PCP if symptoms or not gradually improving over the next 3 to 4 days, sooner if significantly worsening, fever. Patient verbalized understanding of treatment plan. [facility] Other Consultation note 2023 Note Date & Type Note Facility 2023 Note CONSULTATION CONSULTATION DATE: 2023 TO: Pool Garcia M.D. HISTORY: Patient returns today complaining of 0-5/10 pain in his left hip area, describes it as sharp pain, increased with activity such as standing, walking and performing transitioning maneuvers. He feels most comfortable in the semi-recumbent position. Denies any change in bowel and bladder habits or new sensory motor changes in his lower extremities. EXAM: Notable for patient having no clinical radiculopathy or myelopathy involving his lower extremities. He had nothing to suggest facet loading pain clinically. He did have a positive left sided FABERs sign suggestive of left hip joint related pain. IMPRESSION: Our impression is patient with chronic residual pain secondary to left hip joint related pain clinically. At this point, it does not seem to be effecting his qualify of life, level of function or sleep pattern. RECOMMENDATIONS: I recommend no further interventions for his residual pain symptoms. We will obtain a urine toxicology screen, since he was on tramadol, but no longer is taking it. If his urine toxicology screen comes back appropriate, we will have him return to the office on an as needed basis. If his left hip pain should increase, he was informed to contact your office for evaluation of the same. As part of providing excellent, safe, comprehensive care, the following was completed at our patient's visit: 1. A medication reconciliation and review to ensure accurate knowledge of current/active medications, including asking our patients to inform us about any lvmg-eep-ndvjmxk medications or herbal remedies/nutritional supplements/alternative remedies. 2. A review to specifically ensure our patients have had annual screening for: elevated body mass index (BMI, see intake chart for exact total), tobacco use, screening for depression, and screening for unhealthy alcohol use. When screening is concerning, patients are provided with education and the specific recommendation to discuss the concerning health issue and treatment options with their primary care provider. [facility] Progress note 12-14-2022 Note Date & Type Note Facility 12-14-2022 Note Cardiovascular Medic in[facility] SUBJECTIVE Chief Complaint Patient presents with Coronary Artery Disease Hypertension Peripheral Vascular Disease Hyperlipidemia Mike Osei is a 72 y.o. male here for follow-up and for cardiac risk stratification. HPI PMHx: CAD- mild to moderate, HPL, PVA s/p femoral stent- rt 2019, HTN. He has been doing well from a cardiac standpoint. He has left lower back pain that radiates down his left leg to his toes. Pain worsens with various positions or walking longer distances/heavy exertion. This limits his activity level. He denies any CP, dyspnea, orthopnea, PND, LE edema, dizziness/LH, palpitations. He denies any claudication sx's. Patient Active Problem List Diagnosis Bilateral hearing loss Coronary arteriosclerosis Deviated septum Dysfunction of both eustachian tubes History of surgical procedure Knee pyogenic arthritis (CMS/HCC) Hypertensive disorder Peripheral vascular disease (CMS/HCC) Mixed hyperlipidemia Past Medical History: Diagnosis Date CAD (coronary artery disease) Hyperlipidemia Hypertension PVD (peripheral vascular disease) (CMS/HCC) Family History Problem Relation Name Age of Onset Cancer Mother Cancer Brother Diabetes Paternal Grandmother Social History Tobacco Use Smoking status: Former Types: Cigarettes Smokeless tobacco: Never Substance Use Topics Alcohol use: Yes Comment: moderate Allergies Allergen Reactions Penicillins Anaphylaxis, Angioedema, Hives, Itching and Rash ROS Review of Systems HENT: Positive for tinnitus. Musculoskeletal: Positive for arthritis, back pain, joint pain and myalgias. All other systems reviewed and are negative. OBJECTIVE Visit Vitals BP 154/78 (BP Location: Left arm, Patient Position: Sitting) Pulse 71 Ht 1.778 m (5' 10 ) Wt 96.6 kg (213 lb) SpO2 96% BMI 30.56 kg/m??? Smoking Status Former BSA 2.18 m??? Medications: Current Outpatient Medications: atorvastatin (Lipitor) 80 mg tablet, TAKE 1 TABLET BY MOUTH EVERY DAY, Disp: 90 tablet, Rfl: 0 clopidogrel (Plavix) 75 mg tablet, Take 1 tablet (75 mg) by mouth in the morning., Disp: 90 tablet, Rfl: 3 kehivbtvbgu-ulrjnyane-digqmxzt 100-62.5-25 mcg blister with device, Inhale 1 puff in the morning., Disp: , Rfl: hydroCHLOROthiazide (HYDRODiuril) 25 mg tablet, Take 25 mg by mouth in the morning., Disp: , Rfl: losartan (Cozaar) 100 mg tablet, Take 100 mg by mouth in the morning., Disp: , Rfl: metoprolol succinate XL (Toprol-XL) 50 mg 24 hr tablet, Take 1 tablet (50 mg) by mouth in the morning., Disp: 90 tablet, Rfl: 3 Physical Exam Constitutional: Appearance: Normal appearance. He is normal weight. HENT: Head: Normocephalic and atraumatic. Right Ear: External ear normal. Left Ear: External ear normal. Eyes: Extraocular Movements: Extraocular movements intact. Pupils: Pupils are equal, round, and reactive to light. Neck: Vascular: No carotid bruit. Comments: No JVD Cardiovascular: Rate and Rhythm: Normal rate and regular rhythm. Pulses: Normal pulses. Radial pulses are 2+ on the right side and 2+ on the left side. Posterior tibial pulses are 2+ on the right side and 2+ on the left side. Heart sounds: Normal heart sounds. Pulmonary: Effort: Pulmonary effort is normal. Breath sounds: Normal breath sounds. Abdominal: General: Bowel sounds are normal. Palpations: Abdomen is soft. Musculoskeletal: General: Normal range of motion. Cervical back: Neck supple. Right lower leg: No edema. Left lower leg: No edema. Skin: General: Skin is warm and dry. Neurological: General: No focal deficit present. Mental Status: He is alert and oriented to person, place, and time. Psychiatric: Mood and Affect: Mood normal. Behavior: Behavior normal. Thought Content: Thought content normal. Judgment: Judgment normal. Labs/Testing/Procedures: Legacy Encounter on 05/05/2020 Component Date Value Ref Range Status Ventricular Rate 05/05/2020 79 BPM Final Atrial Rate 05/05/2020 79 BPM Final VT Interval 05/05/2020 148 ms Final QRS DURATION 05/05/2020 84 ms Final QT Interval 05/05/2020 386 ms Final QTC CALCULATION(BEZET) 05/05/2020 442 ms Final P [place] 05/05/2020 51 degrees Final R-[place] 05/05/2020 32 degrees Final T Wave [place] 05/05/2020 42 degrees Final Diagnosis 05/05/2020 Final Value:Normal sinus rhythm Normal ECG When compared with ECG of 13-NOV-2019 07:45, No significant change was found Confirmed by Brady SILVER, L.S. (2) on 05/05/2020 11:29:07 AM Labs 07/27/2022 Hgb 12.5, plt 260 Cr. 1.1, BUN 14, K 4.6, Na+ 131, ALT 26, AST 17 Chol 155, HDL 76, trig 121, LDL 54 TSH: 1.933 Labs- 09/02/21 Chol 146, Trig 136, HDl 52, LDL 67- much improved Previous was Chol 221, Trig 144, HDl 56, LDL 136.2 10/27/2020 BNP normal renal function normal Arterial US RLE 12/18/20 arterial plaque with no hemodynamically significant stenosis or (more content not included)... [facility] Progress note 12-14-2022 Note Date & Type Note Facility 12-14-2022 Note Patient here for 1 y ear follow up PVD, hypertension, and CAD. Had routine labs in Jul 2022. Pain management is requesting he hold his Plavix 7 days prior to a lumbar steroid injection. Denies chest pain and SOB. Doing well from cardiac standpoint. Review of Systems HENT: Positive for tinnitus. Musculoskeletal: Positive for arthritis, back pain, joint pain and myalgias. All other systems reviewed and are negative. [facility] Consultation note 12-07-2022 Note Date & Type Note Facility 12-07-2022 Note CONSULTATION CONSULTATION DATE: 12/07/2022 CHIEF COMPLAINT: Left hip pain, left foot pain. HISTORY OF PRESENT ILLNESS: This is a very pleasant, 72-year-old gentleman who had an x-ray of his lumbar spine. X-rays were noted on chart. The patient reports a pain of 8-9/10 in his left hip that radiates down to his foot. He feels numbness and tingling in the three digits of his left foot. The patient describes also a sharp, pressure sensation. Walking, activities, housework, lifting, climbing stairs aggravate the pain. Sitting mitigates the pain as does laying down and transitioning. The patient does not take any pain medications. The patient is on Plavix. He takes Tylenol 1000 mg b.i.d. The patient had a trochanteric bursa injection which afforded the patient significant improvement; however, states the pain has now returned and the character of the pain has changed. The patient's PAST MEDICAL HISTORY / SURGICAL HISTORY / REVIEW OF SYSTEMS are noted on the chart, along with the MEDICATION LIST / ALLERGIES and RADIOLOGICAL IMAGES. PHYSICAL EXAMINATION: Upon physical examination, this is a pleasant, cooperative gentleman, who appears to be uncomfortable when he ambulates. The patient is accompanied by his . VITAL SIGNS: Stable at 146/82 with a heart rate of 104. At a height of 5'10 , the patient weighs 98 kg. HEAD: Atraumatic, normocephalic. NECK: No crepitus is noted. HEART: Negative orthopnea. LUNGS: Negative dyspnea. ABDOMEN: Soft, non-distended. BACK: The patient has tenderness along the posterior elements bilaterally. Paravertebral spasming is noted. Extension, compression, direct palpation along the L4-L5, L5-S1 aggravate and reproduce the patient's pain symptomatology concordant with facet arthropathy, lumbar spondylosis. EXTREMITIES: No pedal edema is noted. MUSCULOSKELETAL: Decreased muscle bulk, muscle density is noted, on the left hand side compared to the right hand side. The patient is right handed. NEUROLOGICALLY: Hypoesthesia along the L5 distribution on the left hand side. PSYCHIATRICALLY: Affect is appropriate. IMPRESSION: Lumbar radiculitis, neuritis; lumbar degenerative disc disease, lumbar spondylosis. PLAN: We will start the patient on tramadol 50 mg b.i.d., baclofen 10 mg q.p.m. The patient will be scheduled for a lumbar epidural steroid injection under fluoroscopy, subsequent to which, depending on how the patient responds, the patient may possibly need to have the facet component addressed. The patient and his understand. Education was done. CC: Pool Garcia M.D. [facility] Consultation note 11-02-2022 Note Date & Type Note Facility 11-02-2022 Note CONSULTATION CONSULTATION DATE: 11/02/2022 PREOPERATIVE DIAGNOSIS: Left trochanteric bursitis POSTOPERATIVE DIAGNOSIS: Left trochanteric bursitis. PROCEDURE: Left trochanteric bursa injection. Subsequent to obtaining informed consent, the patient was placed in the prone position. Alcohol prep was used to sterilize the site. A 25 gauge needle was advanced and it comes to rest in the left trochanteric bursa. Negative aspiration. Marcaine 0.125% along with Kenalog 40 mg were injected to the site. Negative heme. The patient tolerated the procedure well, without any overt complication, will be followed up in the office. [facility] Consultation note 10-26-2022 Note Date & Type Note Facility 10-26-2022 Note CONSULTATION CONSULTATION DATE: 10/26/2022 CHIEF COMPLAINT: Low back pain, left leg pain, left hip pain. HISTORY OF PRESENT ILLNESS: This is a very pleasant, 72-year-old gentleman who was referred to us by Dr. Garcia. The patient has had chronic pain for approximately 2+ months. The patient had stubbed his second, third and fourth toes while walking at times. He states subsequent to that he has constantly had pain. He has been ambulating with an antalgia secondary to the pain. The patient rates the pain as an 8/10; an achy pain, uncomfortable. Sitting mitigates the pain. Standing, walking aggravate the pain, as do stairs, activities. Transitioning aggravates the pain. The patient has changed beds, trying to get a softer mattress so that he can lay and sleep. The patient takes Extra Strength Tylenol, two tablets on a b.i.d. to t.i.d. basis; Vitamin C, D3, B-Complex. The patient is on Plavix and takes prednisone 3 mg 2-3 per day. The patient's PAST MEDICAL HISTORY / SURGICAL HISTORY / REVIEW OF SYSTEMS are noted on the chart, along with the MEDICATION LIST / ALLERGIES. No RADIOLOGICAL IMAGES. PHYSICAL EXAM: Upon physical examination, this is a pleasant, cooperative gentleman who does not appear to be in any acute distress. VITAL SIGNS: Stable at 131/77 with a heart rate of 89. At a height of 5'10 , the patient weighs 100 kg. HEAD: Atraumatic, normocephalic. The patient has a non-productive cough. NECK: Bullous. Upper respiratory irritation is present. HEART: Negative orthopnea. LUNGS: Negative dyspnea. ABDOMEN: Protuberant, distended. BACK: Slight tenderness along the L5-S1 junction. Significant jump response along the left trochanteric bursa consistent with trochanteric bursitis. EXTREMITIES: No pedal edema. MUSCULOSKELETAL: Intact in the lower extremities. NEUROLOGICALLY: Slight weakness along the L5 distribution on the left hand side. PSYCHIATRICALLY: Affect is appropriate. IMPRESSION: Chronic low back pain, left trochanteric bursitis, left L5 radiculitis, radiculopathy. PLAN: We will get an x-ray of the patient's lumbar spine. The patient will apply heat rub to his left trochanteric bursa in the interim. We shall look to get authorization for a left trochanteric bursa injection. Multivitamin regimens were suggested to the patient, and the possibility of the patient having a low T test ordered by Dr. Garcia. CC: Pool Garcia M.D. [facility] History general Narrative - Reported Note Date & Type Note Facility History general Narrative - Reported Type Medical History HTN Medical History hyperlipidemia Medical History PAD Medical History SOB Surgical History right knee arthroscopy Surgical History cataract removal [facility] Other Summary Purpose Family History No Family History Records FoundNo Family History Records FoundNo Family History Records Found Advance Directives No Advanced Directives Records FoundNo Advanced Directives Records FoundNo Advanced Directives Records Found Hospital Course Note MR#: [id number] I [facility] Pt. Name: Mike Osei Admitted: 11/09/2019 Discharged: 11/13/2019 Date of : 1950 Physician: Donald Collier M.D. DISCHARGE SUMMARY PRINCIPAL DIAGNOSIS: Right knee septic arthritis. PROCEDURES PERFORMED: Right knee arthrotomy and I and D performed by Dr. Collier on November 10, 2019. SUMMARY OF HOSPITAL COURSE: This is a 69-year-old male, who had development of right knee pain and swelling for which he was aspirated at an outside facility and per report, this aspiration grew gram-positive cocci. The patient was then transferred to [facility] for higher level of care. The patient underwent right knee arthrotomy with irrigation, debridement performed by Dr. Azevedo on November 10, 2019. Postoperatively, the patient did well with pain control and with mobility, including working with physical and occupational therapy. Infectious Disease team was consulted and made recommendations. The patient had a PICC line placed prior to discha (more content not included)... Additional Source Comments (unrecognized sect ion and content) No Status Records FoundNo Status Records FoundNo Status Records Found INFORMATION SOURCE (unrecogn ized section and content) DATE CREATED AUTHOR 09/21/2020 [facility] DATE CREATED AUTHOR AUTHOR'S ORGANIZ ATION 12/16/2022 [facility] DATE CREATED AUTHOR AUTHOR'S ORGANIZ ATION 02/06/2023 [facility] REASON FOR VISIT (unrecogniz ed section and content) RIGHT HAND SWOLLEN, WARM, TO THE TOUCH, NOT SURE WHAT HAPPENED FOR RECORDS PERTAINING TO PATIENTS WHO ARE OR HAVE BEEN ENROLLED IN A CHEMICAL DEPENDENCY/SUBSTANCEABUSE PROGRAM, SOME INFORMATION MAY BE OMITTED. This clinical summary was aggregated from multiple sources. Caution should be exercised in using it in the provision of clinical care. This summary normalizes information from multiple sources, and as a consequence, information in this document may materially change the coding, format and clinical context of patient data. In addition, data may be omitted in some cases. CLINICAL DECISIONS SHOULD BE BASED ON THE PRIMARY CLINICAL RECORDS. [employer] provides no warranty or guarantee of the accuracy or completeness of information in this document.
== END 2023-11-14 14:55 | disposition home or self-care (01) ==
LOC: RAD 14:55
PROVIDERS: PCP Family Medicine; Visit Provider Internal Medicine
DX: R06.02 Shortness of breath (principal)
CPT/HCPCS: 71046

== ENCOUNTER 2023-12-26 10:12 | Outpatient (OUT) | payer MEDICARE, SELFPAY ==
--- OUTSIDE RECORDS SUMMARY | 2023-12-26 10:16 | XMS_ITS | CCD ---
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 Name Role Phone [place] Procedure Practitioner Unavailab le SELF, REFERRED Referring Unavailable SELF, REFERRED Primary Care Unavailable EBRAHEIM, DONALD Surgeon Unavailable EBRAHEIM, DONALD Attending Unavailable EBRAHEIM, DONALD Admitting Unavailable [place] Procedure Practitioner Unavailab YA Galarza Surgeon Unavailable UNKNOWN, PROVIDER Attending Unavailable UNKNOWN, PROVIDER Admitting Unavailable POOL GARCIA Primary Care Unavailable JOSE, POOL Referring Unavailable UNKNOWN, PROVIDER Attending Unavailable UNKNOWN, PROVIDER Admitting Unavailable NADEREMariusz, POOL Referring Unavailable NADERER, POOL Primary Care Unavailable UNKNOWN, PROVIDER Attending Unavailable UNKNOWN, PROVIDER Admitting Unavailable SELF, REFERRED Referring Unavailable SELF, REFERRED Primary Care Unavailable [place] Procedure Practitioner Unavailab le SELF, REFERRED Primary [...] CHAUHAN ., DR SCOTT Jurado Attending Unavailable CAHUHAN ., DR SCOTT Jurado Admitting Unavailable LAKSHMIPATHY, [...] Translations: [PENICILLINS] Drug allergy (disorder) 7 [facility] Repository (1 source) Penicillin G Drug Allergy hives and throat swelling Siri Other Medications Current Medications Medication Drug Class(es) [...] Coronary arteriosclerosis; Translations: [Atherosclerotic heart disease of [place] coronary artery without angina pectoris] Onset: 03-16-2022 [...] 03-16-2022 Chronic Other aftercare (1 source) Other penitentiary (current) drug therapy; Translations: [OTH HUMAN FACTORS ERGONOMIST CURRENT DRUG THERAPY] Onset: 01-16-2023 Episodic Other [...] Da te Episodic/Chronic Other aftercare (1 source) 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 Rosa et.al. JCEM 2017,102;6725-5923. PMID: [id number]. Performed By: #### T ESTTOT #### [facility] [address] [place] [address] Dr. Marilin Rothman CBC AUTO DIFFon 01-13-2023 BASO # 0.0 103/ul Normal 0.0-0.1 [facility] Comment on above: Performed By: #### T ALEXANDER, BMP #### [facility] [address] [place] [address] Dr. Marilin Rothman Basophils/100 WBC (Bld) 0.3 % Normal 0.2-2.0 [facility] Comment on above: Performed By: #### T ALEXANDER BMP #### [facility] [address] [place] [address] Dr. Marilin Rothman EO # 0.0 103/ul Normal 0.0-0.7 [facility] Comment on above: Performed By: #### T ALEXANDER, BMP #### [facility] [address] [place] [address] Dr. Marilin Rothman Eosinophils/100 WBC (Bld) 0.2 % Critically low 0.9-7.0 [facility] Comment on above: Performed By: #### T SH, BMP #### [facility] [address] [place] [address] Dr. Marilin Rothman Erythrocyte distribution width (RBC) [Ratio] 13.3 % Normal 11.0-15.0 [facility] Comment on above: Performed By: #### T SH, BMP #### [facility] [address] [place] [address] Dr. Marilin Rothman Hematocrit (Bld) [Volume fraction] 38.2 % Critically low 42.0-54.0 [facility] Comment on above: Performed By: #### T SH, BMP #### [facility] [address] [place] [address] Dr. Marilin Rothman Hemoglobin (Bld) [Mass/Vol] 13.1 g/dL Critically low 14.0-18.0 [facility] Comment on above: Performed By: #### T SH, BMP #### [facility] [address] [place] [address] Dr. Marilin Rothman IG # 0.08 10e3/ul Critically high 0.00-0.03 [facility] Comment on above: Performed By: #### T SH, BMP #### [facility] [address] [place] [address] Dr. Marilin Rothman IG % 0.8 % Critically high 0.0-0.5 [facility] Comment on above: Performed By: #### T SH, BMP #### [facility] [address] [place] [address] Dr. Marilin Rothman LYMPH # 1.0 103/ul Critically low 1.2-3.8 [facility] Comment on above: Performed By: #### T SH, BMP #### [facility] [address] [place] [address] Dr. Marilin Rothman Lymphocytes/100 WBC (Bld) 10.1 % Critically low 20.5-60.0 [facility] Comment on above: Performed By: #### T SH, BMP #### [facility] [address] [place] [address] Dr. Marilin Rothman MANUAL DIFF REQ NO Normal [facility] Comment on above: Performed By: #### T SH, BMP #### [facility] [address] [place] [address] Dr. Marilin Rothman MCH (RBC) [Entitic mass] 32.8 pg Normal 25.9-34.0 [facility] Comment on above: Performed By: #### T SH, BMP #### [facility] [address] [place] [address] Dr. Marilin Rothman MCHC (RBC) [Mass/Vol] 34.3 g/dL Normal 29.9-35.2 [facility] Comment on above: Performed By: #### T SH, BMP #### [facility] [address] [place] [address] Dr. Marilin Rothman MCV (RBC) [Entitic vol] 95.7 fL Critically high 80.0-94 .0 [facility] Comment on above: Performed By: #### T SH, BMP #### [facility] [address] [place] [address] Dr. Marilin Rothman MONO # 0.8 103/ul Normal 0.3-0.8 [facility] Comment on above: Performed By: #### T SH, BMP #### [facility] [address] [place] [address] Dr. Marilin Rothman Monocytes/100 WBC (Bld) 8.1 % Normal 1.7-12.0 [facility] Comment on above: Performed By: #### T SH, BMP #### [facility] [address] [place] [address] Dr. Marilin Rothman NEUT # 7.6 103/ul Critically high 1.4-6.5 [facility] Comment on above: Performed By: #### T SH, BMP #### [facility] [address] [place] [address] Dr. Marilin Rothman Neutrophils/100 WBC (Bld) 80.5 % Critically high 43.0-75.0 [facility] Comment on above: Performed By: #### T SH, BMP #### [facility] [address] [address] [address] Marilin Rothman Platelet mean volume (Bld) [Entitic vol] 8.6 fL Critically low 9.5-13.5 [facility] Comment on above: Performed By: #### T SH, BMP #### [facility] [address] [address] [address] Marilin Rothmna PLT 237 103/ul Normal 150-450 [facility] Comment on above: Performed By: #### T SH, BMP #### [facility] [address] [address] [address] Marilin Rothman RBC 3.99 106/ul Critically low 4.70-6.10 [facility] Comment on above: Performed By: #### T SH, BMP #### [facility] [address] [place] [address] Dr. Marilin Rothman WBC 9.4 103/ul Normal 4.0-11.0 [facility] Comment on above: Performed By: #### T SH, BMP #### [facility] [address] [place] [address] Dr. Marilin Rothman PROF CHEM 8 (BAS METB)on Anion gap [Moles/Vol] 7.8 mmol/L Normal [facility] Comment on above: Performed By: #### T SH, BMP #### [facility] [address] [place] [address] Dr. Marilin Rothman Calcium [Mass/Vol] 9.9 mg/dL Normal 8.5-10.1 [facility] Comment on above: Performed By: #### T SH, BMP #### [facility] [address] [place] [address] Dr. Marilin Rothman Chloride [Moles/Vol] 102 mmol/L Normal 98-107 [facility] Comment on above: Performed By: #### T SH, BMP #### [facility] [address] [address] [address] Marilin Rothman CO2 [Moles/Vol] 31.8 mmol/L Normal 21.0-32.0 [facility] Comment on above: Performed By: #### T SH, BMP #### [facility] [address] [place] [address] Dr. Marilin Rothman Creatinine [Mass/Vol] 1.30 mg/dL Normal 0.70-1.30 [facility] Comment on above: Performed By: #### T SH, BMP #### [facility] [address] [address] [address] Marilin Rothman EGFR-AF WELSH >60 Normal >=60 [facility] Comment on above: Performed By: #### T SH, BMP #### [facility] [address] [address] [address] Marilin Rothman EGFR-NON AF WELSH 54 mL/min/1.73m2 Critically low >=60 [facility] Comment on above: Performed By: #### T SH, BMP #### [facility] [address] [place] [address] Dr. Marilin Rothman Glucose [Mass/Vol] 110 mg/dL Critically high 74-106 [facility] Comment on above: Performed By: #### T SH, BMP #### [facility] [address] [place] [address] Dr. Marilin Rothman Potassium [Moles/Vol] 4.6 mmol/L Normal 3.5-5.1 [facility] Comment on above: Performed By: #### T SH, BMP #### [facility] [address] [place] [address] Dr. Marilin Rothman Sodium [Moles/Vol] 137 mmol/L Normal 136-145 [facility] Comment on above: Performed By: #### T SH, BMP #### [facility] [address] [address] [address] Marilin Rothman Urea nitrogen [Mass/Vol] 18.0 mg/dL Normal 7.0-18.0 [facility] Comment on above: Performed By: #### T SH, BMP #### [facility] [address] [place] [address] Dr. Marilin Rothman Urea nitrogen/Creatinine [Mass ratio] 13.8 mg/mg Normal [facility] Comment on above: Performed By: #### T SH, BMP #### [facility] [address] [place], [place] [address] Dr. Marilin Rothman TSHon 01-13-2023 TSH 0.951 uIU/mL Normal 0.358-3.740 [facility] Comment on above: Performed By: #### T SH, BMP #### [facility] [address] [place], [place] [address] Dr. Marilin Rothman Office Visiton 12-14-2022 Follow-up visit [id number] Mike Osei Raza 1950 M Date Provider Department Center 12/14/2022 MARCUS ODONNELL [facility] Family History Problem Relation Age of Onset Cancer Mother Cancer Brother Diabetes Paternal Grandmother Family Status - Relation Status Age at Mother Brother Paternal Grandmother Level of Service:63477 [place] OFFICE/OUTPATIENT ESTABLISHED MOD MDM 30-39 MIN Reason for Visit and Comments: Coronary Artery Disease [187] Hypertension [103872] Peripheral Vascular Disease [458] Hyperlipidemia [182] Normal [facility] 36on 12-10-2022 34 Approving, but needs appt for additional refills. Normal [facility] XR LSPINE W_OBLS AND FLEX_EX Ton [...] by: BRADY MORRIS Date: 2022-10-27 17:11 Normal [facility] CBC AUTO DIFFon 07-27-2022 BASO # 0.1 103/ul Normal 0.0-0.1 [facility] Comment on above: Performed By: #### T SH, BMP #### [facility] [address] [place] [address] Dr. Marilin Rothman Basophils/100 WBC (Bld) 0.8 % Normal 0.2-2.0 [facility] Comment on above: Performed By: #### T SH, BMP #### [facility] [address] [place] [address] Dr. Marilin Rothman EO # 0.1 103/ul Normal 0.0-0.7 [facility] Comment on above: Performed By: #### T SH, BMP #### [facility] [address] [place] [address] Dr. Marilin Rothman Eosinophils/100 WBC (Bld) 2.2 % Normal 0.9-7.0 [facility] Comment on above: Performed By: #### T SH, BMP #### [facility] [address] [place] [address] Dr. Marilin Rothman Erythrocyte distribution width (RBC) [Ratio] 13.2 % Normal 11.0-15.0 [facility] Comment on above: Performed By: #### T SH, BMP #### [facility] [address] [place] [address] Dr. Marilin Rothman Hematocrit (Bld) [Volume fraction] 38.6 % Critically low 42.0-54.0 [facility] Comment on above: Performed By: #### T SH, BMP #### [facility] [address] [place] [address] Dr. Marilin Rothman Hemoglobin (Bld) [Mass/Vol] 12.5 g/dL Critically low 14.0-18.0 [facility] Comment on above: Performed By: #### T SH, BMP #### [facility] [address] [place] [address] Dr. Marilin Rothman IG # 0.06 10e3/ul Critically high 0.00-0.03 [facility] Comment on above: Performed By: #### T SH, BMP #### [facility] [address] [address] [address] Marilin Rothman IG % 1.0 % Critically high 0.0-0.5 [facility] Comment on above: Performed By: #### T SH, BMP #### [facility] [address] [place] [address] Dr. Marilin Rothman LYMPH # 1.0 103/ul Critically low 1.2-3.8 [facility] Comment on above: Performed By: #### T SH, BMP #### [facility] [address] [place] [address] Dr. Marilin Rothman Lymphocytes/100 WBC (Bld) 15.9 % Critically low 20.5-60.0 [facility] Comment on above: Performed By: #### T SH, BMP #### [facility] [address] [place] [address] Dr. Marilin Rothman MANUAL DIFF REQ NO Normal [facility] Comment on above: Performed By: #### T ALEXANDER, BMP #### [facility] [address] [place] [address] Dr. Marilin Rothman MCH (RBC) [Entitic mass] 32.2 pg Normal 25.9-34.0 [facility] Comment on above: Performed By: #### T ALEXANDER, BMP #### [facility] [address] [place] [address] Dr. Marilin Rothman MCHC (RBC) [Mass/Vol] 32.4 g/dL Normal 29.9-35.2 [facility] Comment on above: Performed By: #### T SH, BMP #### [facility] [address] [place] [address] Dr. Marilin Rothman MCV (RBC) [Entitic vol] 99.5 fL Critically high 80.0-94 .0 [facility] Comment on above: Performed By: #### T SH, BMP #### [facility] [address] [place] [address] Dr. Marilin Rothman MONO # 0.8 103/ul Normal 0.3-0.8 [facility] Comment on above: Performed By: #### T SH, BMP #### [facility] [address] [address] [address] Marilin Rothman Monocytes/100 WBC (Bld) 12.9 % Critically high 1.7-12. 0 [facility] Comment on above: Performed By: #### T SH, BMP #### [facility] [address] [place] [address] Dr. Marilin Rothman NEUT # 4.2 103/ul Normal 1.4-6.5 [facility] Comment on above: Performed By: #### T SH, BMP #### [facility] [address] [place] [address] Dr. Marilin Rothman Neutrophils/100 WBC (Bld) 67.2 % Normal 43.0-75.0 [facility] Comment on above: Performed By: #### T SH, BMP #### [facility] [address] [place] [address] Dr. Marilin Rothman Platelet mean volume (Bld) [Entitic vol] 9.3 fL Critically low 9.5-13.5 [facility] Comment on above: Performed By: #### T SH, BMP #### [facility] [address] [place] [address] Dr. Marilin Rothman PLT 260 103/ul Normal 150-450 [facility] Comment on above: Performed By: #### T SH, BMP #### [facility] [address] [place] [address] Dr. Marilin Rothman RBC 3.88 106/ul Critically low 4.70-6.10 [facility] Comment on above: Performed By: #### T SH, BMP #### [facility] [address] [place] [address] Dr. Marilin Rothman WBC 6.3 103/ul Normal 4.0-11.0 [facility] Comment on above: Performed By: #### T SH, BMP #### [facility] [address] [place] [address] Dr. Marilin Rothman LIPID PROFILEon 07-27-2022 CHOL-HDL RATIO NORM SEE BELOW Normal [facility] Comment on above: Result Comment: 3.3 - 4.4 LOW RISK 4.4 - 7.1 AVERAGE RISK 7.1 - 11.0 MODERATE RISK >11.0 HIGH RISK Performed By: #### T SH, BMP #### [facility] [address] [place] [address] Dr. Marilin Rothman Cholesterol [Mass/Vol] 155 mg/dL Normal <=200 [facility] Comment on above: Performed By: #### T SH, BMP #### [facility] [address] [place] [address] Dr. Marilin Rothman Cholesterol in HDL [Mass/Vol] 76 mg/dL Critically high 40-60 [facility] Comment on above: Performed By: #### T SH, BMP #### [facility] [address] [place] [address] Dr. Marilin Rothman Cholesterol in LDL [Mass/Vol] 54.8 mg/dL Normal [facility] Comment on above: Performed By: #### T SH, BMP #### [facility] [address] [place] [address] Dr. Marilin Rothman Cholesterol.total/Grace sterol in HDL [Mass ratio] 2.0 {ratio} Normal [facility] Comment on above: Performed By: #### T SH, BMP #### [facility] [address] [place] [address] Dr. Marilin Rothman HDL NORMAL > or = 60 mg/dl - LO W CARDIOVASCULAR RISK <40 mg/dl - HIGH CARDIOVASCULAR RISK Normal [facility] Comment on above: Performed By: #### T SH, BMP #### [facility] [address] [place] [address] Dr. Marilin Rothman LDL CALC NORMAL SEE BELOW Normal [facility] Comment on above: Result Comment: <100 mg/dl OPTIMAL 100 - 129 mg/dl NEAR OR ABOVE OPTIMAL 130 - 159 mg/dl BORDERLINE HIGH 160 - 189 mg/dl HIGH >190 mg/dl VERY HIGH Performed By: #### T SH, BMP #### [facility] [address] [place] [address] Dr. Marilin Rothman Triglyceride [Mass/Vol] 121 mg/dL Normal <=150 T [facility] Comment on above: Performed By: #### T SH, BMP #### [facility] [address] [place] [address] Dr. Marilin Rothman VLDL CALC 24.2 mg/dL Normal [facility] Comment on above: Performed By: #### T SH, BMP #### [facility] [address] [place] [address] Dr. Marilin Rothman LIVER PROFILEon 07-27-2022 Albumin [Mass/Vol] 3.9 g/dL Normal 3.4-5.0 [facility] Comment on above: Performed By: #### T SH, BMP #### [facility] [address] [place] [address] Dr. Marilin Rothman Albumin/Globulin [Mass ratio] 1.2 {ratio} Normal [facility] Comment on above: Performed By: #### T SH, BMP #### [facility] [address] [place] [address] Dr. Marilin Rothman ALP [Catalytic activity/Vol] 89 U/L Normal 46-116 [facility] Comment on above: Performed By: #### T SH, BMP #### [facility] [address] [place] [address] Dr. Marilin Rothman ALT [Catalytic activity/Vol] 26 U/L Normal 16-63 [facility] Comment on above: Performed By: #### T SH, BMP #### [facility] [address] [place] [address] Dr. Marilin Rothman AST [Catalytic activity/Vol] 17 U/L Normal 15-37 [facility] Comment on above: Performed By: #### T SH, BMP #### [facility] [address] [place] [address] Dr. Marilin Rothman BILI, CONJUGATED 0.2 mg/dL Normal 0.0-0.2 [facility] Comment on above: Performed By: #### T SH, BMP #### [facility] [address] [place] [address] Dr. Marilin Rothman Bilirubin [Mass/Vol] 0.6 mg/dL Normal 0.2-1.0 [facility] Comment on above: Performed By: #### T SH, BMP #### [facility] [address] [address] [address] Marilin Rothman Globulin (S) [Mass/Vol] 3.2 g/dL Normal [facility] Comment on above: Performed By: #### T SH, BMP #### [facility] [address] [place] [address] Dr. Marilin Rothman Protein [Mass/Vol] 7.1 g/dL Normal 6.4-8.2 [facility] Comment on above: Performed By: #### T SH, BMP #### [facility] [address] [place] [address] Dr. Marilin Rothman PROF CHEM 8 (BAS METB)on Anion gap [Moles/Vol] 13.7 mmol/L Normal [facility] Comment on above: Performed By: #### T SH, BMP #### [facility] [address] [place] [address] Dr. Marilin Rothman Calcium [Mass/Vol] 9.3 mg/dL Normal 8.5-10.1 [facility] Comment on above: Performed By: #### T SH, BMP #### [facility] [address] [place] [address] Dr. Marilin Rothman Chloride [Moles/Vol] 96 mmol/L Critically low 98-107 [facility] Comment on above: Performed By: #### T SH, BMP #### [facility] [address] [place] [address] Dr. Marilin Rothman CO2 [Moles/Vol] 25.9 mmol/L Normal 21.0-32.0 [facility] Comment on above: Performed By: #### T SH, BMP #### [facility] [address] [place] [address] Dr. Marilin Rothman Creatinine [Mass/Vol] 1.10 mg/dL Normal 0.70-1.30 [facility] Comment on above: Performed By: #### T SH, BMP #### [facility] [address] [place] [address] Dr. Marilin Rothman EGFR-AF WELSH >60 Normal >=60 [facility] Comment on above: Performed By: #### T SH, BMP #### [facility] [address] [address] [address] Marilin Rothman EGFR-NON AF WELSH >60 Normal >=60 [facility] Comment on above: Performed By: #### T SH, BMP #### [facility] [address] [address] [address] Marilin Rothman Glucose [Mass/Vol] 93 mg/dL Normal 74-106 [facility] Comment on above: Performed By: #### T SH, BMP #### [facility] [address] [address] [address] Marilin Rothman Potassium [Moles/Vol] 4.6 mmol/L Normal 3.5-5.1 [facility] Comment on above: Performed By: #### T SH, BMP #### [facility] [address] [place] [address] Dr. Marilin Rothman Sodium [Moles/Vol] 131 mmol/L Critically low 136-145 [facility] Comment on above: Performed By: #### T SH, BMP #### [facility] [address] [place] [address] Dr. Marilin Rothman Urea nitrogen [Mass/Vol] 14.0 mg/dL Normal 7.0-18.0 [facility] Comment on above: Performed By: #### T SH, BMP #### [facility] [address] [place] [address] Dr. Marilin Rothman Urea nitrogen/Creatinine [Mass ratio] 12.7 mg/mg Normal [facility] Comment on above: Performed By: #### T SH, BMP #### [facility] [address] [place] [address] Dr. Marilin Rothman TSHon 07-27-2022 TSH 1.933 uIU/mL Normal 0.358-3.740 [facility] Comment on above: Performed By: #### T SH, BMP #### [facility] [address] [place] [address] Dr. Marilin Rothman VITAMIN D 25 OHon 07-27-2022 VIT D 25-OH 85.4 ng/mL Normal [facility] Comment on above: Performed By: #### T SH, BMP #### [facility] [address] [address] [address] Marilin Rothman VIT D RANGES SEE BELOW Normal [facility] Comment on above: Result Comment: <20 ng/mL Vit D deficient 20 - <30 ng/mL Vit D insufficient 30 - 100 ng/mL Vit D sufficient >100 ng/mL Potential Toxicity Performed By: #### T SH, BMP #### [facility] [address] [place] [address] Dr. Marilin Rothman ACID FAST SMEAR AND CXon Acid Fast Culture Negative Normal [facility] Comment on above: Result Comment: No a amos fast bacilli isolated after 6 weeks. Performed By: #### T SH, BMP #### [facility] [address] [place] [address] Dr. Marilin Rothman Acid Fast Smear Negative Normal [facility] Comment on above: Performed By: #### T ALEXANDER, BMP #### [facility] [address] [place] [address] Dr. Marilin Rothman AFB Specimen Processing Direct Inoculation Normal [facility] Comment on above: Performed By: #### T ALEXANDER, BMP #### [facility] [address] [place] [address] Dr. Marilin Rothman FUNGAL CULTUREon 04-09-2022 Fungus (Mycology) Culture Final report Normal [facility] Comment on above: Performed By: #### C XFUN #### [facility] [address] [place] [address] Dr. Marilin Rothman Fungus Stain Final report Normal [facility] Comment on above: Performed By: #### C XFUN #### [facility] [address] [place] [address] Dr. Marilin Rothman Result 1 Comment Normal [facility] Comment on above: Result Comment: RITA/ Calcofluor preparation: no fungus observed. Performed By: #### C XFUN #### [facility] [address] [place] [address] Dr. Marilin Rothman Result Comment: No y east or mold isolated after 4 weeks. LOWER RESPIRATORY CULTUREon 03-14-2022 Lower Respiratory Culture Final report Normal [facility] Comment on above: Performed By: #### C XLORES #### [facility] [address] [place] [address] Dr. Marilin Rothman Result 1 Comment Normal [facility] Comment on above: Result Comment: Rout ine respiratory carlito Performed By: #### C XLORES #### [facility] [address] [address] [address] Marilin Rothman CYTOLOGYon 03-11-2022 SENT TO REF LAB 03/12/22 Normal [facility] Comment on above: Performed By: #### C YTO #### [facility] [address] [place] [address] Dr. Marilin MCCORMACK STAINon 03-11-2022 COMMENTS NO ORGANISMS OBSERVED Normal [facility] Comment on above: Performed By: #### G STAIN #### [facility] [address] [place] [address] Dr. Marilin Rothman DIPHTHEROIDS Normal [facility] Comment on above: Performed By: #### G STAIN #### [facility] [address] [place] [address] Dr. Marilin Rothman EPITHELIALS FEW Normal [facility] Comment on above: Performed By: #### G STAIN #### [facility] [address] [place] [address] Dr. Marilin Rothman FUNGAL ELEMENTS Normal [facility] Comment on above: Performed By: #### G STAIN #### [facility] [address] [place] [address] Dr. Marilin MCCORMACK NEG BACILLI Normal [facility] Comment on above: Performed By: #### G STAIN #### [facility] [address] [address] [address] Marilin MCCORMACK NEG DIPPLOCOCCI Normal [facility] Comment on above: Performed By: #### G STAIN #### [facility] [address] [place] [address] Dr. Marilin Rothman GRAM POS BACILLI Normal [facility] Comment on above: Performed By: #### G STAIN #### [facility] [address] [place] [address] Dr. Marilin Rothman GRAM POSITIVE COCCI Normal [facility] Comment on above: Performed By: #### G STAIN #### [facility] [address] [address] [address] Marilin Rothman GRAM STAIN SOURCE R. LOWER LOBE LAVAGE Normal [facility] Comment on above: Performed By: #### G STAIN #### [facility] [address] [place] [address] Dr. Marilin Rothman GS_DIPTH [facility] Comment on above: Performed By: #### G STAIN #### [facility] [address] [place] [address] Dr. Marilin Rothman WBC FEW [facility] Comment on above: Performed By: #### G STAIN #### [facility] [address] [place] [address] Dr. Marilin Rothman IMMUNOGLOBULIN E, TOTALon Immunoglobulin E, Total 129 IU/mL Normal 6-495 [facility] Comment on above: Performed By: #### I GETOT #### [facility] [address] [place] [address] Dr. Marilin Rothman CBC AUTO DIFFon 03-01-2022 BASO # 0.1 103/ul Normal 0.0-0.1 [facility] Comment on above: Performed By: #### T SH, BMP #### [facility] [address] [place] [address] Dr. Marilin Rothman Basophils/100 WBC (Bld) 0.9 % Normal 0.2-2.0 [facility] Comment on above: Performed By: #### T SH, BMP #### [facility] [address] [place] [address] Dr. Marilin Rothman EO # 0.7 103/ul Normal 0.0-0.7 [facility] Comment on above: Performed By: #### T SH, BMP #### [facility] [address] [place] [address] Dr. Marilin Rothman Eosinophils/100 WBC (Bld) 9.2 % Critically high 0.9-7.0 [facility] Comment on above: Performed By: #### T SH, BMP #### [facility] [address] [place] [address] Dr. Marilin Rothman Erythrocyte distribution width (RBC) [Ratio] 13.0 % Normal 11.0-15.0 [facility] Comment on above: Performed By: #### T SH, BMP #### [facility] [address] [place] [address] Dr. Marilin Rothman Hematocrit (Bld) [Volume fraction] 39.5 % Critically low 42.0-54.0 [facility] Comment on above: Performed By: #### T SH, BMP #### [facility] [address] [place] [address] Dr. Marilin Rothman Hemoglobin (Bld) [Mass/Vol] 13.0 g/dL Critically low 14.0-18.0 [facility] Comment on above: Performed By: #### T SH, BMP #### [facility] [address] [place] [address] Dr. Marilin Rothman IG # 0.03 10e3/ul Normal 0.00-0.03 [facility] Comment on above: Performed By: #### T SH, BMP #### [facility] [address] [place] [address] Dr. Marilin Rothman IG % 0.4 % Normal 0.0-0.5 [facility] Comment on above: Performed By: #### T SH, BMP #### [facility] [address] [place] [address] Dr. Marilin Rothman LYMPH # 1.1 103/ul Critically low 1.2-3.8 [facility] Comment on above: Performed By: #### T SH, BMP #### [facility] [address] [place] [address] Dr. Marilin Rothman Lymphocytes/100 WBC (Bld) 14.2 % Critically low 20.5-60.0 [facility] Comment on above: Performed By: #### T SH, BMP #### [facility] [address] [place] [address] Dr. Marilin Rothman MANUAL DIFF REQ NO Normal [facility] Comment on above: Performed By: #### T SH, BMP #### [facility] [address] [place] [address] Dr. Marilin Rothman MCH (RBC) [Entitic mass] 32.2 pg Normal 25.9-34.0 [facility] Comment on above: Performed By: #### T SH, BMP #### [facility] [address] [place] [address] Dr. Marilin Rothman MCHC (RBC) [Mass/Vol] 32.9 g/dL Normal 29.9-35.2 [facility] Comment on above: Performed By: #### T SH, BMP #### [facility] [address] [place] [address] Dr. Marilin Rothman MCV (RBC) [Entitic vol] 97.8 fL Critically high 80.0-94 .0 [facility] Comment on above: Performed By: #### T SH, BMP #### [facility] [address] [place] [address] Dr. Marilin Rothman MONO # 0.9 103/ul Critically high 0.3-0.8 [facility] Comment on above: Performed By: #### T SH, BMP #### [facility] [address] [place] [address] Dr. Marilin Rothman Monocytes/100 WBC (Bld) 11.8 % Normal 1.7-12.0 [facility] Comment on above: Performed By: #### T SH, BMP #### [facility] [address] [place] [address] Dr. Marilin Rothman NEUT # 4.7 103/ul Normal 1.4-6.5 [facility] Comment on above: Performed By: #### T SH, BMP #### [facility] [address] [place] [address] Dr. Marilin Rothman Neutrophils/100 WBC (Bld) 63.5 % Normal 43.0-75.0 [facility] Comment on above: Performed By: #### T SH, BMP #### [facility] [address] [place] [address] Dr. Marilin Rothman Platelet mean volume (Bld) [Entitic vol] 8.7 fL Critically low 9.5-13.5 [facility] Comment on above: Performed By: #### T ALEXANDER, BMP #### [facility] [address] [place] [address] Dr. Marilin Rothman PLT 250 103/ul Normal 150-450 [facility] Comment on above: Performed By: #### T SH, BMP #### [facility] [address] [place] [address] Dr. Marilin Rothman RBC 4.04 106/ul Critically low 4.70-6.10 [facility] Comment on above: Performed By: #### T ALEXANDER, BMP #### [facility] [address] [place] [address] Dr. Marilin Rothman WBC 7.5 103/ul Normal 4.0-11.0 [facility] Comment on above: Performed By: #### T ALEXANDER, BMP #### [facility] [address] [place] [address] Dr. Marilin Rothman PROTIMEon 03-01-2022 INR Coag (PPP) [Relative time] 0.97 {INR} Normal [facility] Comment on above: Performed By: #### T ALEXANDER, BMP #### [facility] [address] [place] [address] Dr. Marilin Rothman INR GUIDELINES SEE BELOW Normal [facility] Comment on above: Result Comment: TOAN RED INR: 2.0 - 3.0 CONDITIONS NOT LISTED BELOW 2.5 - 3.5 FOR PROSTHETIC HEART VALVE REPLACEMENT 2.5 - 3.5 RECURRENT THROMBOSIS Performed By: #### T ALEXANDER, BMP #### [facility] [address] [place] [address] Dr. Marilin Rothman PT Coag (PPP) [Time] 10.5 s Normal 9.0-11.6 [facility] Comment on above: Performed By: #### T ALEXANDER, BMP #### [facility] [address] [place] [address] Dr. Marilin Rothman PTTon 03-01-2022 aPTT Coag (Bld) [Time] 27.5 s Normal 22.3-36.2 [facility] Comment on above: Performed By: #### T SH, BMP #### [facility] [address] [place] [address] Dr. Marilin Rothman ASPERGILLUS AB, QUANTITATIVE DIDon 02-28-2022 Aspergillus flavus Negative Normal Neg:<1:1 [facility] Comment on above: Performed By: #### T SH, BMP #### [facility] [address] [place] [address] Dr. Marilin Rothman Aspergillus fumigatus Negative Normal Neg:<1:1 [facility] Comment on above: Performed By: #### T SH, BMP #### [facility] [address] [place] [address] Dr. Marilin Rothman Aspergillus niger Negative Normal Neg:<1:1 [facility] Comment on above: Performed By: #### T SH, BMP #### [facility] [address] [place] [address] Dr. Marilin Rothman ANTI NEUTROPHIL CYTOPLASMIC AB (ANCA) PRon 02-26-2022 Antimyeloperoxidase (MPO) Abs <9.0 Normal 0.0-9.0 [facility] Comment on above: Result Comment: Perf ormed at: BN Performed By: #### A NCAP #### [facility] [address] [place] [address] Dr. Marilin Rothman Antiproteinase 3 (NY-3) Abs <3.5 Normal 0.0-3.5 [facility] Comment on above: Result Comment: Perf ormed at: BN Performed By: #### A NCAP #### [facility] [address] [place] [address] Dr. Marilin Rothman Atypical pANCA <1:20 Normal Neg:<1:20 [facility] Comment on above: Result Comment: The atypical pANCA pattern has been observed in a significant percentage of patients with ulcerative colitis, primary sclerosing cholangitis and autoimmune hepatitis. Performed at: CB Performed By: #### A NCAP #### [facility] [address] [place] [address] Dr. Marilin Rothman Cytoplasmic (C-ANCA) <1:20 Normal Neg:<1:20 [facility] Comment on above: Result Comment: Perf ormed at: CB Performed By: #### A NCAP #### [facility] [address] [place], [place] [address] Dr. Marilin Rothman Perinuclear (P-ANCA) <1:20 Normal Neg:<1:20 [facility] Comment on above: Result Comment: The presence of positive fluorescence exhibiting P-ANCA or C-ANCA patterns alone is not specific for the diagnosis of Antwan's Granulomatosis (WG) or microscopic polyangiitis. Decisions about treatment should not be based solely on ANCA IFA results. The International ANCA Group Consensus recommends follow up testing of positive sera with both NY-3 and MPO-ANCA enzyme immunoassays. As many as 5% serum samples are positive only by EIA. Ref. AM J Clin Pathol 1999;111:507-513. Performed at: CB Performed By: #### A NCAP #### [facility] [address] [place], [place] [address] LUNG CANCER SCREENINGon [...] BRADY RJPHYLLISJUSTIN Date: 2022-02-24 11:30 Normal [facility] PROF CHEM 8 (BAS METB)on Anion gap [Moles/Vol] 8.6 mmol/L Normal [facility] Comment on above: Performed By: #### B MP #### [facility] [address] [address] [address] Marilin Rothman Calcium [Mass/Vol] 9.0 mg/dL Normal 8.5-10.1 [facility] Comment on above: Performed By: #### B MP #### [facility] [address] [address] [address] Marilin Rothman Chloride [Moles/Vol] 100 mmol/L Normal 98-107 [facility] Comment on above: Performed By: #### B MP #### [facility] [address] [address] [address] Marilin Rothman CO2 [Moles/Vol] 30.5 mmol/L Normal 21.0-32.0 [facility] Comment on above: Performed By: #### B MP #### [facility] [address] [address] [address] Marilin Rothman Creatinine [Mass/Vol] 1.35 mg/dL Critically high 0.70-1.30 [facility] Comment on above: Performed By: #### B MP #### [facility] [address] [address] [address] Marilin Rothman EGFR-AF WELSH >60 Normal >=60 [facility] Comment on above: Performed By: #### B MP #### [facility] [address] [address] [address] Marilin Rothman EGFR-NON AF WELSH 52 mL/min/1.73m2 Critically low >=60 [facility] Comment on above: Performed By: #### B MP #### [facility] [address] [address] [address] Marilin Rothman Glucose [Mass/Vol] 100 mg/dL Normal 74-106 [facility] Comment on above: Performed By: #### B MP #### [facility] [address] [address] [address] Marilin Rothman Potassium [Moles/Vol] 4.1 mmol/L Normal 3.5-5.1 [facility] Comment on above: Performed By: #### B MP #### [facility] [address] [place], [place] [address] Dr. Marilin Rothman Sodium [Moles/Vol] 135 mmol/L Critically low 136-145 [facility] Comment on above: Performed By: #### B MP #### [facility] [address] [address] [address] Marilin Rothman Urea nitrogen [Mass/Vol] 13.0 mg/dL Normal 7.0-18.0 [facility] Comment on above: Performed By: #### B MP #### [facility] [address] [address] [address] Marilin Rothman Urea nitrogen/Creatinine [Mass ratio] 9.6 mg/mg Normal [facility] Comment on above: Performed By: #### B MP #### [facility] [address] [address] [address] Marilin Rothman Cardiovascular Lab Reporton 08-22-2020 Cardiovascular Lab Report [facility] Patient Name: Mike Osei [facility] MR #: [id number] Physician: Sanket Reyes M.D. Department of Service Date: 08/21/2020 Medicine Birthdate: 1950 Division of Room #: Cardiology Adult Cardiovascular Services [address] [address] Cardiovascular Laboratory Report SHORT RANGE AIR DEFENSE ARTILLERY: Aron Anderson M.D. FINAL IMPRESSION: Successful angioplasty, [...] inner cannula was then exchanged for a 5-Saudi Arabian sheath. Through the 5-Saudi Arabian sheath, a Uni-Flush catheter was introduced into the abdominal aorta and the aortic bifurcation was traversed using a 0.035 hydrophilic guidewire. Next, the catheter was then placed in the right femoral artery and angiography was performed. A guidewire exchange was then performed removing the catheter and sheath and replacing these with a 6-Saudi Arabian Renaldo through which a NaviCross was introduced [...] hemostasis was achieved with manual pressure. A [employer] wire was advanced antegrade through the catheter [...] was achieved. Final angiography was performed. A 6-Saudi Arabian Angio-Seal was deployed. Adequate hemostasis was achieved. [...] Reyes M.D. Date Trans: 08/22/2020 02:59 A/noreen [id number] cc: Pool Garcia M.D. [address] [facility] [address] [place] [facility] Cardiovascular Lab Reporton 05-06-2020 Cardiovascular Lab Report [facility] Patient Name: Mike Osei [facility] MR #: [id number] Physician: Aron Mar Department of Brady Anderson Medicine Service Date: 05/05/2020 Division of Birthdate: 1950 Cardiology Room #: D [id number] Adult Cardiovascular Services [address] [address] Cardiovascular Laboratory Report INDICATION: The patient is [...] right superficial femoral artery. 6. Use of Vega IVUS-guided reentry catheter. 7. 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 METHODS: Procedure was explained to the patient with risks and benefits. He signed informed consent. He was brought to mini lab operator in a fasting state. The left groin area was prepped and draped in usual fashion. Using ultrasound guidance and micropuncture technique, the left common femoral artery was accessed. The inner cannula was advanced. Limited left femoral angiography was performed followed by upsizing to a 6-Saudi Arabian x 11 cm sheath. Next, a 5-Saudi Arabian Uni-Flush catheter was advanced and placed in the distal abdominal aorta. An angled Glidewire was then used to cross the aortoiliac bifurcation and the catheter was advanced to the level of the right common femoral artery and then over a Magic Torque wire, this was exchanged along with the access sheath to a 6-Saudi Arabian x 55 cm Renaldo sheath. Right lower [...] At that time, we advanced an angled [place] catheter through the antegrade sheath over a straight Glidewire and we crossed subintimally proximally and advanced to the proximal to mid segment of the SFA. We advanced a hot metal charger 5 x 40 mm balloon and used that balloon to perform reverse CART technique with multiple inflations using that balloon as well as an [place] [employer] [place] 3.0 x 15 mm noncompliant balloon advanced through the retrograde wire for CART technique. Repeated multiple inflations and multiple attempts were performed at multiple levels. However, we were not able to join the 2 subintimal spaces and therefore, we abandoned this technique. We decided to go with the Vega reentry catheter from the antegrade access. This was then advanced to the subintimal space in the mid SFA over a Whitney wire and using the standard technique, we identified under intravascular ultrasound the true lumen and once this was positioned in the 12 o'clock position, the needle was advanced the appropriate amount and after 2 attempts, the Whitney wire was able to advance into the true lumen. This was confirmed as the wire came in parallel with the retrograde wire. However, at this point, while trying to remove the Vega catheter, the Whitney wire got kinked and entangled, and we were not able to retrieve the Vega catheter over the wire and we had to remove the both wire and Vega catheter assembly together and therefore, lost access into the true lumen. We repeated this process again and we are able to advance the Vega catheter into position and multiple attempts at this point were made to gain access into the true lumen, however, those failed and we had to retrieve the Vega catheter and terminate the procedure at this time. The Vega catheter and the Renaldo sheath were removed [...] He will be admitted for overnight observation. CLAY PROCESSING LABOURER: Shahzad Caballero MD. TOTAL FLUORO TIME: 101.28 [...] Anderson M.D. Date Trans: 05/06/2020 05:57 A/noreen [id number] cc: Pool Garcia M.D. [address] [facility] [address] Normal [facility] APTTon 04-17-2020 aPTT Coag (Bld) [Time] 27.5 s Normal 25.0-35.0 [facility] Comment on above: Order Comment: This order is a replacement of the rejected order with accession [id number]. Result Comment: ALL RESULTS MUST BE INTERPRETED [...] PURPOSE. Performed By: #### 6 2586 #### [facility] [address] [email or web address] [address], [facility] BASIC METABOLIC PANELon 06- Calcium [Mass/Vol] 8.4 mg/dL Low 8.6-10.3 [facility] Comment on above: Order Comment: No: D o not add to previous draw Performed By: #### 6 2586 #### [facility] [address] [place] [address], [facility] Chloride [Moles/Vol] 98 mmol/L Normal 98-107 [facility] Comment on above: Order Comment: No: D o not add to previous draw Performed By: #### 6 2586 #### [facility] [address] [place] [address], [place] CO2 [Moles/Vol] 25 mmol/L Normal 21-31 [facility] Comment on above: Order Comment: No: D o not add to previous draw Performed By: #### 6 2586 #### [facility] [address] [place] [address], [place] Creatinine [Mass/Vol] 1.26 mg/dL Normal 0.70-1.30 [facility] Comment on above: Order Comment: No: D o not add to previous draw Performed By: #### 6 2586 #### [facility] [address] [place] [address], [place] GFR/1.73 sq M predicted among blacks MDRD (S/P/Bld) [Vol rate/Area] mL/min/{1.73_m2} Normal >60 [facility] Comment on above: Order Comment: No: D o not add to previous draw Result Comment: Calc ulation may not be valid for patients over 70 years Performed By: #### 6 2586 #### [facility] [address] [place] [address], [place] GFR/1.73 sq M predicted among non-blacks MDRD (S/P/Bld) [Vol rate/Area] 56 ml/min/1.73sq m Abnormal >60 [facility] Comment on above: Order Comment: No: D o not add to previous draw Result Comment: Calc ulation may not be valid for patients over 70 years Performed By: #### 6 2586 #### [facility] [address] [place] [address], [place] Glucose [Mass/Vol] 123 mg/dL High 70-100 [facility] Comment on above: Order Comment: No: D o not add to previous draw Performed By: #### 6 2586 #### [facility] [address] [place] [address], [facility] Potassium [Moles/Vol] 3.6 mmol/L Normal 3.5-5.1 [facility] Comment on above: Order Comment: No: D o not add to previous draw Performed By: #### 6 2586 #### [facility] [address] [place] [address], [facility] Sodium [Moles/Vol] 129 mmol/L Low 136-145 [facility] Comment on above: Order Comment: No: D o not add to previous draw Performed By: #### 6 2586 #### [facility] [address] [place] [address], [facility] Urea nitrogen [Mass/Vol] 14 mg/dL Normal 7-25 [facility] Comment on above: Order Comment: No: D o not add to previous draw Performed By: #### 6 2586 #### [facility] [address] [place], [place] [address] CBC COMPLETE BLOOD COUNTon 0 6--2019 Erythrocyte distribution width (RBC) [Ratio] 14.2 % Normal 11.5-15.0 [facility] Comment on above: Order Comment: No: D o not add to previous draw Performed By: #### 6 2586 #### [facility] [address] [place] [address], [facility] Hematocrit (Bld) [Volume fraction] 32.2 % Low 39.0-50.0 [facility] Comment on above: Order Comment: No: D o not add to previous draw Performed By: #### 6 2586 #### [facility] [address] [place] [address], [facility] Hemoglobin (Bld) [Mass/Vol] 10.8 g/dL Low 13.0-17.0 [facility] Comment on above: Order Comment: No: D o not add to previous draw Performed By: #### 6 2586 #### [facility] [address] [place] [address], [facility] MCH (RBC) [Entitic mass] 32.7 pg Normal 27.0-33.0 [facility] Comment on above: Order Comment: No: D o not add to previous draw Performed By: #### 6 2586 #### [facility] [address] [place] [address], [facility] MCHC (RBC) [Mass/Vol] 33.5 g/dL Normal 32.0-35.0 [facility] Comment on above: Order Comment: No: D o not add to previous draw Performed By: #### 6 2586 #### [facility] [address] [facility] [place] [id number], [facility] MCV (RBC) [Entitic vol] 97.6 fL Normal 82.0-98.0 [facility] Comment on above: Order Comment: No: D o not add to previous draw Performed By: #### 6 2586 #### [facility] [address] [facility] [place] [id number], [facility] Nucleated RBC/100 WBC (Bld) [Ratio] 0 % Normal 0-0 [facility] Comment on above: Order Comment: No: D o not add to previous draw Performed By: #### 6 2586 #### [facility] [address] [place] [place] [address], [facility] PLAT CNT 217 10*3/uL Normal 150-400 [facility] Comment on above: Order Comment: No: D o not add to previous draw Performed By: #### 6 2586 #### [facility] [address] [facility] [place] [address], [facility] RBC (Bld) [#/Vol] 3.30 10*6/uL Low 4.20-5.70 [facility] Comment on above: Order Comment: No: D o not add to previous draw Performed By: #### 6 2586 #### [facility] [address] [place], [place] [id number] [place] [address] WBC (Bld) [#/Vol] 7.83 10*3/uL Normal 4.00-10.60 [facility] Comment on above: Order Comment: No: D o not add to previous draw Performed By: #### 6 2586 #### [id number] [place] [address] CT ABDOMEN AND PELVIS WO CON TRASTon 04-17-2020 CT ABDOMEN AND PELVIS WO CONTRAST [facility] Department of Radiology [address] [place] [id number] Patient Name: MIKE OSEI : 1950 Sex: M Age: Race: White Pt. Location: [id number] Patient Status: O Ordered Date: 04/17/2020 12:55:00 [...] reports Electronically signed: Eliud Mcguire. Transcribed by: [email or web address], User Resident: DOMINGO NELSON Electronically Signed by: ELIUD MCGUIRE @ 04/17/2020 02:34 AM I personally read this/these film(s) with this resident Normal [facility] Comment on above: Order Comment: Hemat alyssa, s/p cardiac cath, now hypotensive, r/o retroperitoneal bleed. Cardiovascular Lab Reporton 04-17-2020 Cardiovascular Lab Report [facility] Patient Name: Mike Osei [facility] MR #: [id number] Physician: Aron Mar Department of [facility] Medicine Service Date: 04/16/2020 Division of Birthdate: 1950 Cardiology Room #: 3AB [id number] Adult Cardiovascular Services [place] [address] Cardiovascular Laboratory Report INDICATION: Mike Osei is [...] signed informed consent. He was brought to mini lab operator in a fasting state. The left groin area was prepped and draped in usual fashion. Using micropuncture technique and ultrasound guidance, the left common femoral artery was accessed. The inner cannula was advanced, limited femoral angiography was performed followed by upsizing to a 5-Saudi Arabian x 11 cm sheath. Left lower extremity angiography was performed down to the level of the foot. A 5-Saudi Arabian UniFlush catheter was advanced and placed in [...] the catheter and access sheath to a 6-Saudi Arabian Renaldo sheath. Using an angled Glidewire mounted [...] retracted and removed and exchanged to a 6-[place] Arabian x 11 cm sheath. The patient tolerated [...] Anderson M.D. Date Trans: 04/17/2020 06:23 A/noreen [id number] Normal [facility] LACTATE BLOODon 04-17-2020 Lactate [Moles/Vol] 0.9 mmol/L Normal 0.5-2.2 [facility] Comment on above: Order Comment: No: D o not add to previous draw Performed By: #### 6 2586 #### [facility] [address] [place] [address], [facility] PERFUSION BLOOD PANELon 03-25 BASE EXCESS 0.0 mmol/L Normal -2.0-3.0 [facility] Comment on above: Performed By: #### 3 0738 #### [facility] [address] [place] [address], [facility] Glucose [Mass/Vol] 118 mg/dL High 70-105 [facility] Comment on above: Performed By: #### 3 0738 #### [facility] [address] [place] [address], [facility] Hematocrit (Bld) [Volume fraction] 36 % Low 38-51 [facility] Comment on above: Performed By: #### 3 0738 #### [facility] [address] [place] [address], [facility] Hemoglobin (Bld) [Mass/Vol] 12.2 g/dL Normal 12.0-17.0 [facility] Comment on above: Performed By: #### 3 0738 #### [facility] [address] [facility] [place] [address], [facility] IONIZED CALCIUM 1.23 mmol/L Normal 1.12-1.32 [facility] Comment on above: Performed By: #### 3 0738 #### [facility] [address] [facility] [place] [address], [facility] Oxygen (Bld) [Partial pressure] 31.0 mm[Hg] Normal [facility] Comment on above: Performed By: #### 3 0738 #### [facility] [address] [facility] [address], [facility] PCO2 42.2 mmHg Normal 41.0-51.0 [facility] Comment on above: Performed By: #### 3 0738 #### [facility] [address] [facility] [place] [address], [facility] pH (Bld) 7.38 [pH] Normal 7.31-7.41 [facility] Comment on above: Performed By: #### 3 0738 #### [facility] [address] [place] [address], [facility] Potassium [Moles/Vol] 3.9 mmol/L Normal 3.5-4.9 [facility] Comment on above: Performed By: #### 3 0738 #### [facility] [address] [place] [id number], [facility] Sodium [Moles/Vol] 132 mmol/L Low 138-146 [facility] Comment on above: Performed By: #### 3 0738 #### [facility] [address] POC GLUCOSE LABon 04-17-2020 Glucose [Mass/Vol] 126 mg/dL High 70-100 [facility] Comment on above: Performed By: #### 8 5499 #### [facility] [address] PROTHROMBIN TIMEon 0 INR Coag (PPP) [Relative time] 1.02 {INR} Normal 0.91-1.16 [facility] Comment on above: Order Comment: This order is a replacement of the rejected order with accession [id number]- PATIENT NOT IN ROOM; WENT TO CT. [...] 1995;108:231S-246S. Performed By: #### 6 2586 #### [facility] [address] PT Coag (PPP) [Time] 13.4 s Normal 12.3-14.8 [facility] Comment on above: Order Comment: This order is a replacement of the rejected order with accession [id number]- PATIENT NOT IN ROOM; WENT TO CT. Result Comment: ALL RESULTS MUST BE INTERPRETED WITH RESPECT TO BLOOD DRAWING ARTIFACT OR DILUTION ERROR OF ANTICOAGULANT AT THE TIME OF SAMPLING. Performed By: #### 6 2586 #### [facility] [address] TROPONIN-Ion 04-17-2020 Troponin I.cardiac [Mass/Vol] 0.01 ng/mL Normal 0.00-0.04 [facility] Comment on above: Order Comment: No: D o not add to previous draw Result Comment: REFE RENCE RANGES: 0.00 - 0.04 ng/ml NORMAL 0.05 - 0.50 ng/ml INDETERMINATE > 0.50 ng/ml CONSISTENT WITH AN M.I. Performed By: #### 6 2586 #### [facility] [address] TYPE AND SCREENon 04-17-2020 ABO INTERPRETATION A Normal [facility] Comment on above: Performed By: #### 0 2024 #### [facility] [address] RH INTERPRETATION Positive Normal [facility] Comment on above: Performed By: #### 0 2024 #### [facility] [address] C REACTIVE PROTEINon 020 CRP [Mass/Vol] 13.5 mg/L High 0.0-7.0 [facility] Comment on above: Performed By: #### 0 2024 #### [facility] [address] CBC W/DIFFon 12-12-2019 ABS BASOPHILS 0.1 10*3/uL Normal 0.0-0.2 [facility] Comment on above: Performed By: #### 5 102, 53070 #### [facility] [address] ABS IMM GRANS 0.1 10*3/uL Normal 0.0-0.2 [facility] Comment on above: Performed By: #### 5 102, 83410 #### [facility] [address] [place] [address], [facility] ABS NEUTROPHILS 4.3 10*3/uL Normal 1.6-7.6 [facility] Comment on above: Performed By: #### 5 102, 16179 #### [facility] [address] [place] [address], [place] Basophils/100 WBC (Bld) 0.8 % Normal 0.0-1.0 T [facility] Comment on above: Performed By: #### 5 102, 31299 #### [facility] [address] [place] [address], [facility] Eosinophils (Bld) [#/Vol] 0.3 10*3/uL Normal 0.0-0.5 [facility] Comment on above: Performed By: #### 5 102, 48755 #### [facility] [address] [place] [address], [facility] Eosinophils/100 WBC (Bld) 4.6 % Normal 0.0-6.0 [facility] Comment on above: Performed By: #### 5 102, 83402 #### [facility] [address] [place] [address], [facility] Erythrocyte distribution width (RBC) [Ratio] 14.0 % Normal 11.5-15.0 [facility] Comment on above: Performed By: #### 5 102, 80241 #### [facility] [address] [place] [address], [facility] Hematocrit (Bld) [Volume fraction] 36.9 % Low 39.0-50.0 [facility] Comment on above: Performed By: #### 5 102, 66653 #### [facility] [address] [place] [address], [facility] Hemoglobin (Bld) [Mass/Vol] 12.2 g/dL Low 13.0-17.0 [facility] Comment on above: Performed By: #### 5 102, 76338 #### [facility] [address] [facility] [place] [address], [facility] IMMATURE GRANS 0.9 % Normal 0.0-1.0 [facility] Comment on above: Performed By: #### 5 102, 91306 #### [facility] [address] [facility] [place] [address], [facility] Lymphocytes (Bld) [#/Vol] 1.0 10*3/uL Low 1.2-4.0 [facility] Comment on above: Performed By: #### 5 102, 45554 #### [facility] [address] [facility] [address], [facility] Lymphocytes/100 WBC (Bld) 15.5 % Low 20.0-45.0 [facility] Comment on above: Performed By: #### 5 102, 95192 #### [facility] [address] [facility]. [address] MCH (RBC) [Entitic mass] 30.9 pg Normal 27.0-33.0 [facility] Comment on above: Performed By: #### 5 102, 96175 #### [facility] [address] [facility] [place] [address], [facility] MCHC (RBC) [Mass/Vol] 33.1 g/dL Normal 32.0-35.0 [facility] Comment on above: Performed By: #### 5 102, 81953 #### [facility] [address] [facility] [place] [address], [facility] MCV (RBC) [Entitic vol] 93.4 fL Normal 82.0-98.0 [facility] Comment on above: Performed By: #### 5 102, 67784 #### [facility] [address] [facility] [place] [address], [facility] Monocytes (Bld) [#/Vol] 0.7 10*3/uL Normal 0.1-1.0 [facility] Comment on above: Performed By: #### 5 010, 80390 #### [facility] [address] [place] [address], [facility] MONOS 10.3 % Normal 5.0-12.0 [facility] Comment on above: Performed By: #### 5 102, 89192 #### [facility] [address] [place] [address], [place] Neutrophils/100 WBC (Bld) 67.9 % Normal 40.0-72.0 [facility] Comment on above: Performed By: #### 5 102, 92505 #### [facility] [address] [place] [address], [facility] Nucleated RBC/100 WBC (Bld) [Ratio] 0 % Normal 0-0 [facility] Comment on above: Performed By: #### 5 102, 60982 #### [facility] [address] [place] [address], [place] PLAT CNT 215 10*3/uL Normal 150-400 [facility] Comment on above: Performed By: #### 5 102, 29195 #### [facility] [address] [place] [address], [facility] RBC (Bld) [#/Vol] 3.95 10*6/uL Low 4.20-5.70 [facility] Comment on above: Performed By: #### 5 102, 52046 #### [facility] [address] [place] [address], [place] WBC (Bld) [#/Vol] 6.33 10*3/uL Normal 4.00-10.60 [facility] Comment on above: Performed By: #### 5 102, 04427 #### [facility] [address] [place] [address], [facility] SEDIMENTATION RATEon 020 SED RATE 30 mm/hr High 0-10 [facility] Comment on above: Performed By: #### 0 2024 #### [facility] [address] Operative Reporton 0 Operative Report MR#: [id number] [facility] Pt. Name: Mike Osei Room #: [...] edges using a scalpel followed by a [place] and curette. We debrided down to the [...] Waddell MD Date Trans: 11/26/2019 11:48 P/noreen [id number] Normal [facility] APTTon 11-26-2019 aPTT Coag (Bld) [Time] 29.8 s Normal 25.0-35.0 Th e [facility] Comment on above: Result Comment: ALL [...] PURPOSE. Performed By: #### 0 2024 #### [facility] [address] [facility] POC GLUCOSE LABon 11-26-2019 Glucose [Mass/Vol] 100 mg/dL Normal 70-100 [facility] Comment on above: Performed By: #### 8 6002 #### [facility] [address] [facility] [address] PROTHROMBIN TIMEon 0 INR Coag (PPP) [Relative time] 0.99 {INR} Normal 0.91-1.16 [facility] Comment on above: Result Comment: ACCC [...] 1995;108:231S-246S. Performed By: #### 0 2024 #### [facility] [address] [facility] [place] [address], [facility] PT Coag (PPP) [Time] 13.1 s Normal 12.3-14.8 [facility] Comment on above: Result Comment: ALL RESULTS MUST BE INTERPRETED WITH RESPECT TO BLOOD DRAWING ARTIFACT OR DILUTION ERROR OF ANTICOAGULANT AT THE TIME OF SAMPLING. Performed By: #### 0 2024 #### [facility] [address] [place] [address], [facility] VANCOMYCIN TROUGHon 11-12-19 20 VANCOMYCIN TROU 9.0 mcg/mL Normal 5.0-20.0 [facility] Comment on above: Performed By: #### 0 2024 #### [facility] [address] [place] [address], [facility] BASIC METABOLIC PANELon 10-24 Calcium [Mass/Vol] 9.1 mg/dL Normal 8.6-10.3 [facility] Comment on above: Order Comment: Yes: Add to Previous draw if able Performed By: #### 0 2024 #### [facility] [address] [facility] [place] [address], [facility] Chloride [Moles/Vol] 100 mmol/L Normal 98-107 [facility] Comment on above: Order Comment: Yes: Add to Previous draw if able Performed By: #### 0 2024 #### [facility] [address] [place] [address], [facility] CO2 [Moles/Vol] 26 mmol/L Normal 21-31 [facility] Comment on above: Order Comment: Yes: Add to Previous draw if able Performed By: #### 0 2024 #### [facility] [address] [place] [address], [facility] Creatinine [Mass/Vol] 1.22 mg/dL Normal 0.70-1.30 [facility] Comment on above: Order Comment: Yes: Add to Previous draw if able Performed By: #### 0 2024 #### [facility] [address] [facility] [place] [address], [facility] GFR/1.73 sq M predicted among blacks MDRD (S/P/Bld) [Vol rate/Area] mL/min/{1.73_m2} Normal >60 [facility] Comment on above: Order Comment: Yes: Add to Previous draw if able Result Comment: Calc ulation may not be valid for patients over 70 years Performed By: #### 0 2024 #### [facility] [address] [place] [address], [facility] GFR/1.73 sq M predicted among non-blacks MDRD (S/P/Bld) [Vol rate/Area] 59 ml/min/1.73sq m Abnormal >60 [facility] Comment on above: Order Comment: Yes: Add to Previous draw if able Result Comment: Calc ulation may not be valid for patients over 70 years Performed By: #### 0 2024 #### [facility] [address] [place] [address], [place] Glucose [Mass/Vol] 97 mg/dL Normal 70-100 [facility] Comment on above: Order Comment: Yes: Add to Previous draw if able Performed By: #### 0 2024 #### [facility] [address] [place] [address], [place] Potassium [Moles/Vol] 4.0 mmol/L Normal 3.5-5.1 [facility] Comment on above: Order Comment: Yes: Add to Previous draw if able Performed By: #### 0 2024 #### [facility] [address] [place] [address], [place] Sodium [Moles/Vol] 132 mmol/L Low 136-145 [facility] Comment on above: Order Comment: Yes: Add to Previous draw if able Performed By: #### 0 2024 #### [facility] [address] [place] [address], [facility] Urea nitrogen [Mass/Vol] 17 mg/dL Normal 7-25 [facility] Comment on above: Order Comment: Yes: Add to Previous draw if able Performed By: #### 0 2024 #### [facility] [address] [place] [address], [facility] CBC COMPLETE BLOOD COUNTon 0 - Erythrocyte distribution width (RBC) [Ratio] 14.2 % Normal 11.5-15.0 [facility] Comment on above: Order Comment: Yes: Add to Previous draw if able Performed By: #### 6 2586 #### [facility] [address] [place] [id number], [facility] Hematocrit (Bld) [Volume fraction] 32.5 % Low 39.0-50.0 [facility] Comment on above: Order Comment: Yes: Add to Previous draw if able Performed By: #### 6 2586 #### [facility] [address] [place] [address], [facility] Hemoglobin (Bld) [Mass/Vol] 10.4 g/dL Low 13.0-17.0 [facility] Comment on above: Order Comment: Yes: Add to Previous draw if able Performed By: #### 6 2586 #### [facility] [address] [place] [address], [facility] MCH (RBC) [Entitic mass] 31.7 pg Normal 27.0-33.0 [facility] Comment on above: Order Comment: Yes: Add to Previous draw if able Performed By: #### 6 2586 #### [facility] [address] [place] [address], [facility] MCHC (RBC) [Mass/Vol] 32.0 g/dL Normal 32.0-35.0 [facility] Comment on above: Order Comment: Yes: Add to Previous draw if able Performed By: #### 6 2586 #### [facility] [address] [place] [address], [facility] MCV (RBC) [Entitic vol] 99.1 fL High 82.0-98.0 T [facility] Comment on above: Order Comment: Yes: Add to Previous draw if able Performed By: #### 6 2586 #### [facility] [address] [place] [id number], [facility] Nucleated RBC/100 WBC (Bld) [Ratio] 0 % Normal 0-0 [facility] Comment on above: Order Comment: Yes: Add to Previous draw if able Performed By: #### 6 2586 #### [facility] [address] [place] [address], [facility] PLAT CNT 231 10*3/uL Normal 150-400 [facility] Comment on above: Order Comment: Yes: Add to Previous draw if able Performed By: #### 6 2586 #### [facility] [address] [place] [address], [facility] RBC (Bld) [#/Vol] 3.28 10*6/uL Low 4.20-5.70 [facility] Comment on above: Order Comment: Yes: Add to Previous draw if able Performed By: #### 6 2586 #### [facility] [address] [place] [address], [facility] WBC (Bld) [#/Vol] 8.34 10*3/uL Normal 4.00-10.60 [facility] Comment on above: Order Comment: Yes: Add to Previous draw if able Performed By: #### 6 2586 #### [facility] [address] [facility] [address] Operative Reporton 0 Operative Report MR#: [id number] I [facility] Pt. Name: Mike Osei Room #: 6AB [id number] Discharge Date: Birthdate: 1950 OPERATIVE REPORT DATE OF SURGERY: 11/10/2019 SURGEON: Donald Collier M.D. [employer]: Jose Charles MD PREOPERATIVE DIAGNOSIS: Right knee [...] Charles MD Date Trans: 11/11/2019 09:49 A/noreen [id number] cc: Donald Collier M.D. [address] Dept. Of Orthopaedic Surgery [place] [address] Normal [facility] *ANAEROBIC CULTUREon 020 *ANAEROBIC CULTURE Clinical Report: (D) Specimen/Source: TISSUE/INTRAOP SPEC Collected: 11/10/2019 08:50 Status: Final Last Updated: 11/15/2019 07:46 (1) #3 R. KNEE SYNOVIUM #2 CULT RES (Final) No Anaerobes Isolated 5 Days Normal [facility] Comment on above: Order Comment: #3 R. KNEE SYNOVIUM #2 Performed By: #### 8 6002 #### [facility] [address] [place] [address], [facility] *ANAEROBIC CULTURE Clinical Report: (D) Specimen/Source: TISSUE/INTRAOP SPEC Collected: 11/10/2019 08:44 Status: Final Last Updated: 11/15/2019 07:46 (1) #2 R. KNEE SYNOVIUM #1 CULT RES (Final) No Anaerobes Isolated 5 Days Normal [facility] Comment on above: Order Comment: #2 R. KNEE SYNOVIUM #1 Performed By: #### 3 0312 #### [facility] [address] [place] [address], [facility] *ANAEROBIC CULTURE Clinical Report: (D) Specimen/Source: SWAB/INTRAOP SPEC Collected: 11/10/2019 08:43 Status: Final Last Updated: 11/15/2019 07:46 (1) #1 R. KNEE SYNOVIAL FLUID ON SWAB CULT RES (Final) No Anaerobes Isolated 5 Days Normal [facility] Comment on above: Order Comment: #1 R. KNEE SYNOVIAL FLUID ON SWAB Performed By: #### 8 6002 #### [facility] [address] [place] [address], [facility] *BODY FLUID CULTUREon 2019 *BODY FLUID CULTURE Clinical Report: (D) Specimen/Source: FLUID/INTRAOP SPEC Collected: 11/10/2019 08:43 Status: Final Last Updated: 11/15/2019 10:58 (1) #1 R. KNEE SYNOVIAL FLUID ON SWAB GRAM (Final) Rare Polys No Bacteria Seen CULT RES (Final) No Growth Day 5 Normal [facility] Comment on above: Order Comment: #1 R. KNEE SYNOVIAL FLUID ON SWAB Performed By: #### 8 6002 #### [facility] [address] [place] [address], [facility] *TISSUE CULTUREon 11-10-2019 *TISSUE CULTURE Clinical Report: (D) Specimen/Source: TISSUE/INTRAOP SPEC Collected: 11/10/2019 08:50 Status: Final Last Updated: 11/15/2019 10:59 (1) #3 R. KNEE SYNOVIUM #2 GRAM (Final) Rare Polys No Bacteria Seen CULT RES (Final) No Growth Day 5 Normal [facility] Comment on above: Order Comment: #3 R. KNEE SYNOVIUM #2 Performed By: [id number] #### [facility] [address] [place], [place] [address] *TISSUE CULTURE Clinical Report: (D) Specimen/Source: TISSUE/INTRAOP SPEC Collected: 11/10/2019 08:44 Status: Final Last Updated: 11/15/2019 10:58 (1) #2 R. KNEE SYNOVIUM #1 GRAM (Final) Rare Polys No Bacteria Seen CULT RES (Final) No Growth Day 5 Normal [facility] Comment on above: Order Comment: #2 R. KNEE SYNOVIUM #1 Performed By: #### 8 [id number] #### [facility] [address] [place] [address], [facility] POC GLUCOSE LABon 11-10-2019 Glucose [Mass/Vol] 100 mg/dL Normal 70-100 [facility] Comment on above: Performed By: #### 8 [id number] #### [facility] [address] [place] [address], [facility] TYPE AND SCREENon 11-10-2019 ABO INTERPRETATION A Normal [facility] Comment on above: Performed By: #### 6 2586 #### [facility] [address] [place] [address], [place] RH INTERPRETATION Positive Normal [facility] Comment on above: Performed By: #### 6 2586 #### [facility] [address] [facility]. [address] *MRSA/MSSA DNA NASALon 11-09 *MRSA/MSSA DNA NASAL Clinical Report: (D ) Specimen: NASAL SWAB Collected: 11/09/2019 19:00 Status: Final Last Updated: 11/10/2019 13:15 MSSA DNA (Final) Negative MRSA DNA (Final) Methicillin Resistant Staphylococcus aureus DNA Detected Normal [facility] Comment on above: Performed By: #### 8 [id number] #### [facility] [address] APTTon 11-09-2019 aPTT Coag (Bld) [Time] 29.3 s Normal 25.0-35.0 [facility] Comment on above: Result Comment: ALL [...] PURPOSE. Performed By: #### 6 2586 #### [facility] [address] [facility] [place] [address], [facility] BASIC METABOLIC PANELon 10-24 Calcium [Mass/Vol] 9.0 mg/dL Normal 8.6-10.3 [facility] Comment on above: Performed By: #### 0 0071 #### [facility] [address] [facility] [place] [address], [facility] Chloride [Moles/Vol] 94 mmol/L Low 98-107 [facility] Comment on above: Performed By: #### 0 0071 #### [facility] [address] [facility] [place] [address], [facility] CO2 [Moles/Vol] 26 mmol/L Normal 21-31 [facility] Comment on above: Performed By: #### 0 0071 #### [facility] [address] [facility] [place] [address], [facility] Creatinine [Mass/Vol] 1.40 mg/dL High 0.70-1.30 [facility] Comment on above: Performed By: #### 0 0071 #### [facility] [address] [place] [address], [place] GFR/1.73 sq M predicted among blacks MDRD (S/P/Bld) [Vol rate/Area] 60 ml/min/1.73sq m Abnormal >60 [facility] Comment on above: Result Comment: Calc ulation may not be valid for patients over 70 years Performed By: #### 0 0071 #### [facility] [address] [place] [address], [place] GFR/1.73 sq M predicted among non-blacks MDRD (S/P/Bld) [Vol rate/Area] 50 ml/min/1.73sq m Abnormal >60 [facility] Comment on above: Result Comment: Calc ulation may not be valid for patients over 70 years Performed By: #### 0 0071 #### [facility] [address] [place] [address], [place] Glucose [Mass/Vol] 106 mg/dL High 70-100 [facility] Comment on above: Performed By: #### 0 0071 #### [facility] [address] [place] [address], [place] Potassium [Moles/Vol] 3.9 mmol/L Normal 3.5-5.1 [facility] Comment on above: Performed By: #### 0 0071 #### [facility] [address] [place] [address], [place] Sodium [Moles/Vol] 128 mmol/L Low 136-145 [facility] Comment on above: Performed By: #### 0 0071 #### [facility] [address] [place] [address], [place] Urea nitrogen [Mass/Vol] 18 mg/dL Normal 7-25 [facility] Comment on above: Performed By: #### 0 0071 #### [facility] [address] [facility] [place] [address], [facility] CBC W/DIFFon 11-09-2019 ABS BASOPHILS 0.0 10*3/uL Normal 0.0-0.2 [facility] Comment on above: Performed By: #### 6 2586 #### [facility] [address] [facility] [place] [address], [facility] ABS IMM GRANS 0.1 10*3/uL Normal 0.0-0.2 [facility] Comment on above: Performed By: #### 6 2586 #### [facility] [address] ABS NEUTROPHILS 4.9 10*3/uL Normal 1.6-7.6 [facility] Comment on above: Performed By: #### 6 2586 #### [facility] [address] [facility] [place] [address], [facility] Basophils/100 WBC (Bld) 0.3 % Normal 0.0-1.0 T [facility] Comment on above: Performed By: #### 6 2586 #### [facility] [address] [place] [address], [facility] Eosinophils (Bld) [#/Vol] 0.1 10*3/uL Normal 0.0-0.5 [facility] Comment on above: Performed By: #### 6 2586 #### [facility] [address] [facility] [place] [address], [facility] Eosinophils/100 WBC (Bld) 0.8 % Normal 0.0-6.0 [facility] Comment on above: Performed By: #### 6 2586 #### [facility] [address] [place] [address], [facility] Erythrocyte distribution width (RBC) [Ratio] 14.0 % Normal 11.5-15.0 [facility] Comment on above: Performed By: #### 6 2586 #### [facility] [address] [facility] [place] [address], [facility] Hematocrit (Bld) [Volume fraction] 35.1 % Low 39.0-50.0 [facility] Comment on above: Performed By: #### 6 2586 #### [facility] [address] [facility] [place] [address], [facility] Hemoglobin (Bld) [Mass/Vol] 11.6 g/dL Low 13.0-17.0 [facility] Comment on above: Performed By: #### 6 2586 #### [facility] [address] [facility] [place] [address], [facility] IMMATURE GRANS 0.9 % Normal 0.0-1.0 [facility] Comment on above: Performed By: #### 6 2586 #### [facility] [address] [facility]. [address] Lymphocytes (Bld) [#/Vol] 0.7 10*3/uL Low 1.2-4.0 [facility] Comment on above: Performed By: #### 6 2586 #### [facility] [address] [place] [address], [facility] Lymphocytes/100 WBC (Bld) 11.2 % Low 20.0-45.0 [facility] Comment on above: Performed By: #### 6 2586 #### [facility] [address] [facility]. [address] MCH (RBC) [Entitic mass] 31.4 pg Normal 27.0-33.0 [facility] Comment on above: Performed By: #### 6 2586 #### [facility] [address] [place] [address], [facility] MCHC (RBC) [Mass/Vol] 33.0 g/dL Normal 32.0-35.0 [facility] Comment on above: Performed By: #### 6 2586 #### [facility] [address] [facility] [place] [address], [facility] MCV (RBC) [Entitic vol] 95.1 fL Normal 82.0-98.0 T [facility] Comment on above: Performed By: #### 6 2586 #### [facility] [address] [facility] [place] [address], [facility] Monocytes (Bld) [#/Vol] 0.8 10*3/uL Normal 0.1-1.0 [facility] Comment on above: Performed By: #### 6 2586 #### [facility] [address] MONOS 12.4 % High 5.0-12.0 [facility] Comment on above: Performed By: #### 6 2586 #### [facility] [address] Neutrophils/100 WBC (Bld) 74.4 % High 40.0-72.0 [facility] Comment on above: Performed By: #### 6 2586 #### [facility] [address] Nucleated RBC/100 WBC (Bld) [Ratio] 0 % Normal 0-0 [facility] Comment on above: Performed By: #### 6 2586 #### [facility] [address] [place] [address], [facility] PLAT CNT 233 10*3/uL Normal 150-400 [facility] Comment on above: Performed By: #### 6 2586 #### [facility] [address] [place] [address], [facility] RBC (Bld) [#/Vol] 3.69 10*6/uL Low 4.20-5.70 [facility] Comment on above: Performed By: #### 6 2586 #### [facility] [address] WBC (Bld) [#/Vol] 6.54 10*3/uL Normal 4.00-10.60 [facility] Comment on above: Performed By: #### 6 2586 #### [address] KNEE RIGHT 3 VWSon 0 KNEE RIGHT 3 VWS [facility] Department of Radiology [address] [place] [id number] Patient Name: MIKE OSEI : 1950 Sex: M Age: Race: White Pt. Location: Patient Status: O Ordered Date: 11/09/2019 6:50:00 PM Completed Date: 11/09/2019 07:18 PM Requesting Provider: DONALD COLLIER Attending Provider: DONALD COLLIER Report Copy To: Signs & Symptoms: M00.9 Pyogenic arthritis, unspecified I10 History: [place] Comments: , Views (X-RAY, KNEE): Radiologic Protocol [...] reports Electronically signed: Galen Kruse. Transcribed by: [email or web address], User Resident: TONYA COPE Electronically Signed by: GALEN KRUSE @ 11/10/2019 09:54 AM I personally read this/these film(s) with this resident Normal [facility] Comment on above: Order Comment: , Glynn ws (X-RAY, KNEE): Radiologic Protocol , Weight Bearing?: Y , Views (X-RAY, KNEE): Radiologic Protocol , Weight Bearing?: Y , , , Ordering Provider - DONALD COLLIER MD , PROTHROMBIN TIMEon 0 INR Coag (PPP) [Relative time] 0.99 {INR} Normal 0.91-1.16 [facility] Comment on above: Result Comment: ACCC [...] 1995;108:231S-246S. Performed By: #### 6 2586 #### [facility] [address] PT Coag (PPP) [Time] 13.1 s Normal 12.3-14.8 [facility] Comment on above: Result Comment: ALL RESULTS MUST BE INTERPRETED WITH RESPECT TO BLOOD DRAWING ARTIFACT OR DILUTION ERROR OF ANTICOAGULANT AT THE TIME OF SAMPLING. Performed By: #### 6 2586 #### [facility] [address] [facility] [place] [address], [facility] RBC'S 2 UNITSon 11-09-2019 CROSSMATCH INTERP 1 COMP Normal [facility] Comment on above: Performed By: #### 8 6002 #### [facility] [address] [facility] [place] [address], [facility] CROSSMATCH INTERP 2 COMP Normal [facility] Comment on above: Performed By: #### 8 6002 #### [facility] [address] [facility] [address] PRODUCT CODE 1 E0336 Normal [facility] Comment on above: Performed By: #### 8 6002 #### [facility] [address] [place] [address], [place] PRODUCT CODE 2 E0336 Normal [facility] Comment on above: Performed By: #### 8 6002 #### [facility] [address] [place] [address], [place] PRODUCT STATUS 1 RE Normal [facility] Comment on above: Result Comment: Resu lt changed by IF on 11/14/2019 06:36. The previous value was XM. Performed By: #### 8 [id number] #### [facility] [address] [place] [address], [place] PRODUCT STATUS 2 RE Normal [facility] Comment on above: Result Comment: Resu lt changed by IF on 11/14/2019 06:36. The previous value was XM. Performed By: #### 8 6002 #### [facility] [address] [place] [address], [place] UNIT ABO 1 A Normal [facility] Comment on above: Performed By: #### 8 6002 #### [facility] [address] [place] [address], [place] UNIT ABO 2 A Normal [facility] Comment on above: Performed By: #### 8 6002 #### [facility] [address] [place] [address], [place] UNIT ID 1 [id number] Normal [facility] Comment on above: Performed By: #### 8 6002 #### [facility] [address] [place] [address], [place] UNIT ID 2 [id number] Normal [facility] Comment on above: Performed By: #### 8 6002 #### [facility] [address] [place] [address], [place] UNIT RH 1 Positive Normal [facility] Comment on above: Performed By: #### 8 6002 #### [facility] [address] [place] [address], [facility] UNIT RH 2 Positive Normal [facility] Comment on above: Performed By: #### 8 6002 #### [facility] [address] [place] [address], [facility] Vital Signs Date Time Vital Sign Value Performing Clinician Facility 05-24-2023 10:25-0400 Body height 176.53 cm Katiana Kemp Other [facility] 05-24-2023 10:25-0400 Body mass index (BMI) [Ratio] 31.2 kg/m2 Katiana Kemp Other [facility] 05-24-2023 10:25-0400 Body weight 97.25 kg aKtiana Kemp Other [facility] Other 05-24-2023 10:25-0400 Diastolic blood pressure 65 mm[Hg] Katiana Kemp Other [facility] Other 05-24-2023 10:25-0400 Respiratory rate 18 /min Katiana Kemp Other [facility] Other 05-24-2023 10:25-0400 SaO2% (BldA) [Mass fraction] 100 % Katiana Kemp Other [facility] Other 05-24-2023 10:25-0400 Systolic blood pressure 142 mm[Hg] Katiana Kemp Other [facility] Other Encounters Encounter Date Encounter Type Care Provider Facility Start: 05-24-2023 End: 05-24-2023 ambulatory Katiana Kemp Other [facility] Start: 05-24-2023 Office outpatient ne w 20 minutes Katiana Kemp [facility] Start: 2023 End: 01-28-2023 ambulatory HEYDI VORA Facility:[facility]1 Start: 01-13-2023 End: 01-14-[address] POOL GARCIA Facility:[facility] Start: 01-11-2023 End: 01-11-2023 ambulatory HEYDI VORA Facility:[facility] Start: 12-14-2022 End: 12-14-2022 ambulatory [facility] Start: 12-07-2022 End: 12-08-2022 ambulatory [...] 03-03-2022 Encounter for preprocedural cardiovascular examination [facility] . [facility] Start: 03-03-2022 Encounter for preprocedural laboratory examination [facility] . [facility] Start: 03-01-2022 End: 03-02-2022 ambulatory LEIGHA PEDRAZA . Facility: Start: 03-01-2022 End: 03-02-2022 Encounter for preprocedural cardiovascular examination LEIGHA PEDRAZA . Facility:[facility]1 Start: 02-24-2022 End: 02-25-[address] BRADY MORRIS Facility: Start: 08-21-2020 End: 08-22-2020 Patient encounter procedure PROVIDER UNKNOWN Facility:[email or web address] Start: 05-05-2020 End: 05-06-2020 Patient encounter procedure PROVIDER UNKNOWN Facility:[facility] [[email or web address]] Start: 04-16-2020 End: 04-17-2020 Patient encounter procedure PROVIDER UNKNOWN Facility:[facility] [[email or web address]] Start: 11-26-2019 End: 11-27-2019 Patient encounter procedure [place] Facility:[facility] [[email or web address]] Start: 11-09-2019 End: 11-13-2019 Evaluation and management of inpatient [place] Facility:[facility] [[email or web address]] Procedures Date Procedure Procedure Detail Performing Clinician Start: 07-27-[address] SCOTT CHAUHAN . Comment on above: Performed By: #### T SH, BMP #### [facility] [address] [address] [address] Marilin Rothman Start: 04-17-2020 Antibody screen Comment on above: Performed By: #### 0 5 #### [facility] [address] Start: 11-26-2019 Anes integ extremiti es ant trunk & perineum nos [place]A [place] Start: 11-26-2019 LATE CLOSURE OF WOUND N ABIL EBRAHEIM Start: 11-10-2019 EXCISION OF RIGHT KN EE JOINT, OPEN APPROACH DONALD EBRAHEIM Start: 11-10-2019 Antibody screen Comment on above: Performed By: #### 6 2586 #### [facility] [address] [facility] [address] Payers Date Payer Category Payer Unknown [id number] 1961 Medicare [id number] 1961 Medicare [id number] 1950 Unknown [id number] 2.16.8 [id number] 1950 Unknown [id number] 2.16.8 [id number] 1950 Unknown [id number] 2.16.8 40.1.734995.3.579.2.647 1950 Unknown [id number] 2.16.8 40.1.297100.3.579.2.647 1950 Unknown [id number] 2.16.8 40.1.590880.3.579.2.647 1950 Unknown [id number] 2.16.84 0.1.750292.3.579.2.593 1950 Unknown [id number] 2.16.84 0.1.511716.3.579.2.593 1950 Unknown [id number] 2.16.84 0.1.563427.3.579.2.593 1950 Unknown [id number] 2.16.84 0.1.634236.3.579.2.593 1948 Unknown [id number] 2.16.84 0.1.812502.3.579.2.593 1948 Unknown [id number] 2.16.84 0.1.785034.3.579.2.593 1948 Unknown [id number] 2.16.84 0.1.805178.3.579.2.593 1948 Unknown [id number] 2.16.84 0.1.166813.3.579.2.593 1950 Unknown [id number] 2.16.84 0.1.816011.3.579.2.593 1950 Unknown [id number] 2.16.84 0.1.628491.3.579.2.593 1950 Unknown [id number] 2.16.84 0.1.718075.3.579.2.593 Medicare [id number] Social History Date Type Detail Facility Sex Assigned At [facility] Other Evaluation note 05-24-2023 Note Date & [...] fever. Patient verbalized understanding of treatment plan. [facility] Other Consultation note 2023 Note Date & [...] our patients to inform us about any bvas-iao-fhjwibr medications or herbal remedies/nutritional supplements/alternative remedies. 2. [...] options with their primary care provider. [facility] Progress note 12-14-2022 Note Date & Type Note Facility 12-14-2022 Note Cardiovascular Medic ine [facility] SUBJECTIVE Chief Complaint Patient presents with [...] the morning., Disp: 90 tablet, Rfl: 3 bmoyouvqhgf-eeketzifq-kqhqxxfd 100-62.5-25 mcg blister with device, Inhale 1 [...] Final Atrial Rate 05/05/2020 79 BPM Final [place] Interval 05/05/2020 148 ms Final QRS DURATION 05/05/2020 84 ms Final QT Interval 05/05/2020 386 ms Final QTC CALCULATION(BEZET) 05/05/2020 442 ms Final P [place] 05/05/2020 51 degrees Final R-[place] 05/05/2020 32 degrees Final T Wave [place] 05/05/2020 42 degrees Final Diagnosis 05/05/2020 Final [...] significant stenosis or (more content not included)... [facility] Progress note 12-14-2022 Note Date & [...] All other systems reviewed and are negative. [facility] Consultation note 12-07-2022 Note Date & [...] was done. CC: Pool Garcia M.D. [facility] Consultation note 11-02-2022 Note Date & [...] be followed up in the office. [facility] Consultation note 10-26-2022 Note Date & [...] Dr. Garcia. CC: Pool Garcia M.D. [facility] History general Narrative - Reported Note Date & Type Note Facility History general Narrative - Reported Type Medical History HTN Medical History hyperlipidemia Medical History PAD Medical History SOB Surgical History right knee arthroscopy Surgical History cataract removal [facility] Other Summary Purpose Family History No Family History Records FoundNo Family History Records FoundNo Family History Records Found Advance Directives No Advanced Directives Records FoundNo Advanced Directives Records FoundNo Advanced Directives Records Found Hospital Course Note MR#: [id number] I [facility] Pt. Name: Mike Osei Admitted: 11/09/2019 Discharged: [...] cocci. The patient was then transferred to [facility] [[email or web address]] for higher level of care. The patient [...] and content) DATE CREATED AUTHOR 09/21/2020 [facility] DATE CREATED AUTHOR AUTHOR'S ORGANIZ ATION 12/16/2022 [facility] DATE CREATED AUTHOR AUTHOR'S ORGANIZ ATION 02/06/2023 [facility] REASON FOR VISIT (unrecogniz ed [...] BE BASED ON THE PRIMARY CLINICAL RECORDS. [employer] provides no warranty or guarantee of the accuracy or completeness of information in this document.
[2023-12-26 10:51] LABS: Chol HDL Ratio 2.2; Cholesterol 142 mg/dL (<=200); HDL Cholesterol 64 mg/dL (40-60); Triglycerides 79 mg/dL (<=150); VLDL CHOLESTEROL 15.8 mg/dL
== END 2023-12-26 10:13 | disposition home or self-care (01) ==
LOC: LAB 10:13
PROVIDERS: PCP Family Medicine; Visit Provider Internal Medicine Interventional Cardiology
DX: I73.9 Peripheral vascular disease, unspecified (principal); E78.2 Mixed hyperlipidemia; I25.10 Atherosclerotic heart disease of native coronary artery without angina pectoris
CPT/HCPCS: 36415; 80061

== ENCOUNTER 2024-01-10 12:53 | Outpatient (OUT) | payer MEDICARE, SELFPAY ==
--- NOTE | 2024-01-10 13:00 | CA_ITS ---
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 Order Number: [id number] Reading MD: JACQUELINE ROJAS Interpretive Statements Biphasic doppler waveforms PVR waveforms with normal upstroke, amplitude and dicrotic notch Right: - significant pressure gradient between the calf and DP cuff - normal GEETHA Left: - signficant pressure gradient between the calf and DP cuff - normal GEETHA Impression: - normal arterial evaluation of the lower extremities without hemodynamic impairment of the B/L lower extremities at rest. (right GEETHA 1.06, left GEETHA 1.05) - normal response to exercise in the right lower extremity and an abnormal response to exercise in the left lower extremity, which is consistent with arterial disease in the left lower extremity. - clinical correlation advised Electronically Signed On 01-10-2024 23:02:05 EDT by JACQUELINE ROJAS
--- NOTE | 2024-01-10 14:00 | CA_ITS ---
Patient Name: HUY MARTINEZ MR#: [id number] : 1950 Exam Date: 01/10/2024 Ordering Doctor: DR ARON ANDERSON M.D. ECHOCARDIOGRAM REPORT PROCEDURE: CA ECHO DOPPLER COMPLETE INDICATIONS: Dyspnea COMPARISON: None. DESCRIPTION: COMPLETE ECHOCARDIOGRAM Real-time transthoracic echocardiography with 2D, M-mode, spectral and color flow Doppler performed. QUALITY: Technical quality was good. LEFT VENTRICLE: Normal chamber size. Normal left ventricular wall thickness. LV EF: Global left ventricular systolic function is normal. Calculated left ventricular ejection fraction is 62%. No significant wall motion abnormalities. DIASTOLIC: Grade II diastolic dysfunction. ATRIAL SEPTUM: Visually appears intact. LEFT ATRIUM: Moderate dilatation. RIGHT ATRIUM: Mild dilatation. RIGHT VENTRICLE: Normal chamber size. Normal right ventricular systolic function. TRICUSPID VALVE: Normal mobility and thickness. Mild regurgitation. Mild pulmonary hypertension. RVSP 35mmHg MITRAL VALVE: Normal mobility and thickness. No evidence of mitral valve stenosis. There is no mitral annular calcification. Trivial mitral regurgitation. AORTIC VALVE: Normal trileaflet appearance. Thickened aortic valve. Normal leaflet mobility. No evidence of aortic valve stenosis. No aortic regurgitation. AORTIC ROOT: Normal diameter and appearance. PULMONIC VALVE: Normal thickness and mobility. No stenosis. Trivial regurgitation. PERICARDIUM: Anterior free space; trivial effusion versus fat pad. IVC: Collapses with inspirations. Normal size. CONCLUSION: 1. Global left ventricular systolic function is normal; visually estimated ejection fraction is 60 to 65% 2. Normal right ventricular size and systolic function 3. Grade 2 diastolic dysfunction 4. Biatrial enlargement 5. Mild tricuspid regurgitation 6. Mildly elevated right ventricular systolic pressure; RVSP 35 mmHg 7. Anterior free space; trivial effusion versus fat pad Adult Echocardiography Procedure Report Left Ventricle LVEDD (3.7 - 5.6 cm): 4.67 cm LVESD (2.2 - 4.0 cm): 3.31 cm LVIVS thickness (0.6 - 1.2 cm): 1.07 cm LVPW thickness (0.5 - 1.0 cm): 0.96 cm e': 0.06 m/s E - e': 10.64 LVOT Max Gradient: 3.45 mm[Hg], 2.65 mm[Hg], 3.00 mm[Hg] LVOT Area (cm2): 0.87 m/s Peak Velocity (LVOT): 0.93 m/s, 0.81 m/s, 0.87 m/s Mean Velocity (LVOT): 0.53 m/s LVOT Diameter 2.01 cm Left Ventricular Ejection Fraction: 62.35 % Left Atrium LA Volume Index (2D A2C): 48.94 ml/m2 Left Atrium Systolic Dimension: 3.90 cm Mitral Valve MV E to A Ratio: 0.86 Mitral Valve A-Wave Peak Velocity: 0.80 m/s Mitral Valve E-Wave Peak Velocity: 0.69 m/s Right Ventricle RV Internal Diastolic Dimension: 3.83 cm Aorta AO Root Diam: 3.33 cm Ascending Ao Diam: 2.93 cm Aortic Valve AoV Area (Peak Matthew): 2.67 cm2, 2.85 cm2 AoV Area (VTI): 1.90 cm2, 2.60 cm2 Peak Velocity(Antegrade Flow): 1.03 m/s Peak Gradient(Antegrade Flow): 4.27 mm[Hg] Mean Velocity(Antegrade Flow): 0.71 m/s Mean Gradient(Antegrade Flow): 2.21 mm[Hg] Velocity Time Integral: 29.01 cm Tricuspid Valve Peak Velocity (Regurgitant Flow): 2.52 m/s, 2.66 m/s, 2.84 m/s Pulmonic Valve Mean Gradient: 1.44 mm[Hg] Mean Velocity: 0.56 m/s Peak Velocity: 0.80 m/s, 0.81 m/s Peak Gradient: 2.53 mm[Hg], 2.63 mm[Hg] Right Atrium Right Atrium Systolic Pressure: 77.98 ml, 77.98 ml Dictated by: Evelyne Miranda M.D. on 01/12/2024 at 13:57 Approved by: Evelyne Miranda M.D. on 01/12/2024 at 14:01
== END 2024-01-10 12:54 | disposition home or self-care (01) ==
LOC: CARD 12:54
PROVIDERS: PCP Family Medicine; Visit Provider Internal Medicine Interventional Cardiology
DX: R06.02 Shortness of breath (principal); I73.9 Peripheral vascular disease, unspecified
CPT/HCPCS: 93306; 93924

== ENCOUNTER 2024-08-15 12:32 | Outpatient (OUT) | payer MEDICARE, SELFPAY ==
--- OUTSIDE RECORDS SUMMARY | 2024-08-15 12:37 | XMS_ITS | CCD ---
Author Organization [facility] Team Providers Care Histology Specialist Name Role Phone [place] Procedure Practitioner Unavailab le SELF, REFERRED Referring Unavailable SELF, REFERRED Primary Care Unavailable EBRAHEIM, DONALD Surgeon Unavailable EBRAHEIM, DONALD Attending Unavailable EBRAHEIM, DONALD Admitting Unavailable GA Procedure Practitioner Unavailab YA Galarza Surgeon Unavailable UNKNOWN, PROVIDER Attending Unavailable UNKNOWN, PROVIDER Admitting Unavailable JOSE, POOL Primary Care Unavailable JOSE, POOL Referring Unavailable UNKNOWN, PROVIDER Attending Unavailable UNKNOWN, PROVIDER Admitting Unavailable NADEREMariusz, POOL Referring Unavailable NADERER, POOL Primary Care Unavailable UNKNOWN, PROVIDER Attending Unavailable UNKNOWN, PROVIDER Admitting Unavailable SELF, REFERRED Referring Unavailable SELF, REFERRED Primary Care Unavailable GA Procedure Practitioner Unavailab le SELF, REFERRED Primary Care Unavailable EBRAHEIM, DONALD Surgeon Unavailable EBRAHEIM, DONALD Referring Unavailable EBRAHEIM, DONALD Attending Unavailable EBRAHEIM, DONALD Admitting Unavailable CHAUHAN ., DR SCOTT Jurado Consulting Unavailable NADERER, DR POOL Valera Primary Care Unavailable CHAUHAN ., DR SCOTT Jurado Attending Unavailable CHAUHAN ., DR SCOTT Jurado Admitting Unavailable CHAUHAN ., DR SCOTT Jurado Consulting Unavailable NADERER, DR POOL Valera Primary Care Unavailable CHAUHAN ., DR SCOTT Jurado Attending Unavailable CHAUHAN ., DR SCOTT Jurado Admitting Unavailable LAKSHMIPATHY, NARENDRANATH Consulting Unava ilable NADERER, DR POOL Valera Primary Care Unavailable LAKSHMIPATHY, NARENDRANATH Attending Unava ilable LAKSHMIPATHY, NARENDRANATH Admitting Unava ilable LAKSHMIPATHY, NARENDRANATH Consulting Unava ilable NADERER, DR POOL Valera Primary Care Unavailable LAKSHMIPATHY, NARENDGISELLEATH Attending Unava ilable LAKSHMIPATHY, NARENDRANATH Admitting Unava ilable SAMSA .LEIGHA Consulting Unavailable NADERER, DR POOL Valera Primary [...] SCOTT Jurado Admitting Unavailable Katiana Kemp Unavailable JOANNE GALLEGOS Consulting Unavailable GALEN FOFANA Attending Unavailable NADEREMariusz, POOL IVERSON Primary Care UnavailARON Sharif Attending Unavailable HOLLY HUGHES Attending Unavailable Allergies Allergy Classification Reported Allergen(s) Allergy Type Date of Onset Reaction(s) Facility (3 sources) Penicillins; Translations: [PENICILLINS] Drug allergy (disorder) 7 [facility] Repository (1 source) Penicillin G Drug Allergy hives and throat swelling [employer] Other (1 source) Morphine; Translations: [MORPHINE] Drug Allergy 4 [facility] Repository Medications Current Medications Medication Drug Class(es) Dates [...] Active Problems Problem Classification Problem Date Documented Date Episodic/Chronic Chronic kidney disease (1 source) Chronic kidney disease, unspecified; Translations: [CHRONIC KIDNEY DISEASE UNSPECIFIED] Onset: 03-03-2022 Chronic Chronic obstructive pulmonary disease and bronchiectasis (1 source) Chronic obstructive pulmonary disease, unspecified; Translations: [COPD UNSPECIFIED] Onset: 03-16-2022 Chronic Coronary atherosclerosis and other heart disease (3 sources) Atherosclerotic heart disease of [place] coronary artery without angina pectoris; Translations: [ASHD QAWALANGIN CA W/O ANGINA PECTORIS] Onset: 03-16-2022 Chronic Disorders of lipid metabolism (3 sources) Hyperlipidemia, unspecified; Translations: [Mixed hyperlipidemia] Onset: 07-30-2022 Chronic Essential hypertension (6 sources) Essential (primary) hypertension; Translations: [ESSENTIAL PRIMARY HYPERTENSION] Onset: 07-27-2022 Chronic Gout and other crystal [...] [VITAMIN D DEFICIENCY UNSPECIFIED] Onset: 07-30-2022 Chronic Open wounds of head; neck; and trunk (1 source) Ocular laceration without prolapse or loss of intraocular tissue, left eye, initial encounter; Translations: [Ocular laceration without prolapse or loss of intraocular tissue, left eye, initial encounter] Onset: 03-12-2024 Episodic Osteoarthritis (1 source) Unilateral primary osteoarthritis, right knee; Translations: [UNI PRIM OSTEOARTHRITIS RT KNEE] Onset: 03-16-2022 Chronic Other aftercare (1 source) Other fpc (current) drug therapy; Translations: [OTH JAIL CURRENT DRUG THERAPY] Onset: 01-16-2023 Episodic Other [...] and visceral atherosclerosis (3 sources) Peripheral vascular disease, unspecified; Translations: [PERIPHERAL VASCULAR DISEASE UNS] Onset: 03-16-2022 Chronic Residual codes; unclassified (1 source) Obstructive sleep apnea (adult) (pediatric); Translations: [OBSTRUCTIVE SLEEP APNEA] Onset: 03-16-2022 Chronic Skull and face fractures (1 source) Fracture of orbital floor, left side, initial encounter for closed fracture; Translations: [Fracture of orbital floor, left side, initial encounter for closed fracture] Onset: 03-12-2024 Episodic Spondylosis; intervertebral disc disorders; other back problems [...] Da te Episodic/Chronic Other aftercare (1 source) custodial (current) use of anticoagulants; Translations: [JAIL CURRNT USE ANTICOAGULANTS] Onset: 03-03-2022 Episodic Other connective tissue disease (5 sources) Trochanteric bursitis, left hip; Translations: [TROCHANTERIC BURSITIS LEFT HIP] Onset: 10-27-2022 Episodic Other lower respiratory disease (5 sources) Chronic cough; Translations: [CHRONIC COUGH] Onset: 03-03-2022 Episodic Other lower respiratory disease (1 source) Other nonspecific abnormal finding of lung field; Translations: [OTH NONSPECIFIC ABN FIND LNG FIELD] Onset: 03-16-2022 Episodic Other lower respiratory disease (2 sources) Shortness of breath; Translations: [Shortness of breath] Onset: 12-26-2023 Episodic Other screening for suspected conditions (not [...] Test Name Value Interpretation Reference Range Facility Office Visiton 07-13-2024 Follow-up visit [id number] Mike Osei 1950 M Date Provider Department Center 07/13/2024 HOLLY DOUGLAS Family History Problem Relation Age of Onset Cancer Mother Cancer Brother Diabetes Paternal Grandmother Family Status - Relation Status Age at Mother Brother Paternal Grandmother Level of Service:09257 [place] OFFICE/OUTPATIENT ESTABLISHED LOW MDM 20 MIN Normal [facility] 36on 03-23-2024 36 Approving, but needs appt for additional refills. Normal [facility] CT HEAD WO CONTRASTon 2023 CT HEAD WO CONTRAST EXAMINATION: CT OF THE HEAD WITHOUT CONTRAST 03/12/2024 8:38 pm TECHNIQUE: CT of the head was performed without the administration of intravenous contrast. Automated exposure control, iterative reconstruction, and/or weight based adjustment of the mA/kV was utilized to reduce the radiation dose to as low as reasonably achievable. COMPARISON: None. HISTORY: ORDERING SYSTEM PROVIDED HISTORY: poked in L eye TECHNOLOGIST PROVIDED HISTORY: poked in L eye Decision Support Exception - unselect if not a suspected or confirmed emergency medical condition->Emergency Medical Condition (MA) FINDINGS: BRAIN/VENTRICLES: There is no acute intracranial hemorrhage, mass effect or midline shift. No abnormal extra-axial fluid collection. The dewitt-white differentiation is maintained without evidence of an acute infarct. There is mild diffuse parenchymal atrophy. Patchy bilateral periventricular and subcortical white matter hypodensities are nonspecific, but compatible with chronic microvascular ischemic change. ORBITS: There is a displaced left orbital floor fracture with herniation of fat into the fracture defect. There is abnormal irregular contour of the left globe with mild volume loss. There is irregular hyperattenuating material within the posterior chamber of the left globe consistent with blood products. There is left proptosis and left periorbital soft tissue swelling. There is postseptal fat stranding within the left orbit consistent with contusion as well as 6 mm inferior retrobulbar hematoma. There is an abnormal contour/enlargement of the left inferior rectus muscle. Prior bilateral cataract surgery. SINUSES: There is fluid/blood products in the left maxillary sinus. Mucosal thickening in the bilateral ethmoid air cells. No mastoid effusion. SOFT TISSUES/SKULL: No acute abnormality of the visualized skull or soft tissues. IMPRESSION: 1. Findings consistent with left globe rupture with left posterior orbital hemorrhage and left proptosis. 2. Left orbital postseptal contusion as well as 6 mm inferior retrobulbar hematoma. 3. Displaced left orbital floor fracture with herniation of fat into the fracture defect. Abnormal contour of the left inferior rectus muscle could be related to hematoma but can be seen in the setting of entrapment. 4. No acute intracranial abnormality. Findings were discussed with Dr. Radha Bolivar at 10:48 p.m. on 03/12/2024. Interpreted by: Rosa Maria Waddell MD Signed by: Rosa Maria Waddell MD 03/12/24 Final result Normal [facility] Comp Metabolic Profon 2023 Albumin [Mass/Vol] 4.3 g/dL Normal 3.5-5.2 [facility] Comment on above: Performed By: #### C DP, PTT, PT, CP #### [address] [address] [employer] Tender: Daniel Rosado MD Albumin/Glob Ratio 2.0 Normal 1.0-2.5 [facility] Comment on above: Performed By: #### C DP, PTT, PT, CP #### [address] [address] [employer]ender: Daniel Rosado MD Alkaline Phos 68 U/L Normal 40-129 [facility] Comment on above: Performed By: #### C DP, PTT, PT, CP #### [facility] [employer] [address] [place] [id number] [employer]: Daniel Rosado MD ALT [Catalytic activity/Vol] 17 U/L Normal 10-50 [facility] Comment on above: Performed By: #### C DP, PTT, PT, CP #### [address] [address] [employer]: Daniel Rosado MD Anion gap [Moles/Vol] 17 mmol/L High 9-16 [facility] Comment on above: Performed By: #### C DP, PTT, PT, CP #### [address] [address] [employer]: Daniel Rosado MD AST [Catalytic activity/Vol] 26 U/L Normal 10-50 [facility] Comment on above: Result Comment: SPEC IMEN SLIGHTLY HEMOLYZED, RESULTS MAY BE ADVERSELY AFFECTED. Performed By: #### C DP, PTT, PT, CP #### [facility] [employer] [address] [place] [address] [employer]: Daniel Rosado MD Bilirubin [Mass/Vol] 0.3 mg/dL Normal 0.00-1.20 [facility] Comment on above: Performed By: #### C DP, PTT, PT, CP #### [facility] [employer] [address] [place] [address] [employer]: Daniel Rosado MD Calcium [Mass/Vol] 9.5 mg/dL Normal 8.6-10.4 [facility] Comment on above: Performed By: #### C DP, PTT, PT, CP #### [address] [address] [employer]: Daniel Rosado MD Chloride [Moles/Vol] 94 mmol/L Low 98-107 [facility] Comment on above: Performed By: #### C DP, PTT, PT, CP #### [facility] [employer] [address] [place] [address] [employer]: Daniel Rosado MD CO2 [Moles/Vol] 18 mmol/L Low 20-31 [facility] Comment on above: Performed By: #### C DP, PTT, PT, CP #### [facility] [employer] [address] [place] [address] [employer]: Daniel Rosado MD Creatinine [Mass/Vol] 1.8 mg/dL High 0.70-1.20 [facility] Comment on above: Performed By: #### C DP, PTT, PT, CP #### [address] [address] [employer]: Daniel Rosado MD GFR/1.73 sq M.predicted among non-blacks MDRD (S/P/Bld) [Vol rate/Area] 40 mL/min/{1.73_m2} Low >60 [facility] Comment on above: Result Comment: These results are not intended for use in patients <18 years of age. eGFR results are calculated without a race factor using the 2020 CKD-EPI equation. Careful clinical correlation is recommended, particularly when comparing to results calculated using previous equations. The CKD-EPI equation is less accurate in patients with extremes of muscle mass, extra-renal metabolism of creatine, excessive creatine ingestion, or following therapy that affects renal tubular secretion. Performed By: #### C DP, PTT, PT, CP #### [address] [address] [employer]: Daniel Rosado MD Glucose [Mass/Vol] 106 mg/dL High 74-99 [facility] Comment on above: Performed By: #### C DP, PTT, PT, CP #### [address] [address] [employer]: Daniel Rosado MD Potassium [Moles/Vol] 3.9 mmol/L Normal 3.7-5.3 [facility] Comment on above: Result Comment: SPEC IMEN SLIGHTLY HEMOLYZED, RESULTS MAY BE ADVERSELY AFFECTED. Performed By: #### C DP, PTT, PT, CP #### [address] [address] [employer]: Daniel Rosado MD Protein [Mass/Vol] 6.9 g/dL Normal 6.6-8.7 [facility] Comment on above: Performed By: #### C DP, PTT, PT, CP #### [address] [address] [employer]: Daniel Rosado MD Sodium [Moles/Vol] 129 mmol/L Low 136-145 [facility] Comment on above: Performed By: #### C DP, PTT, PT, CP #### [address] [address] [employer]: Daniel Rosado MD Urea nitrogen [Mass/Vol] 27 mg/dL High 8-23 [facility] Comment on above: Performed By: #### C DP, PTT, PT, CP #### [address] [address] [employer]: Daniel Rosado MD APTTon 03-12-2024 aPTT Coag (Bld) [Time] 22.5 s Low 23.0-36.5 [facility] Comment on above: Result Comment: IV Heparin Therapy Range: 66.0-92.0 sec Performed By: #### C DP, PTT, PT, CP #### [address] [address] [employer]: Daniel Rosado MD CBC with Diffon 03-12-2024 Abs. Basophil 0.06 k/uL Normal 0.00-0.20 [facility] Comment on above: Performed By: #### C DP, PTT, PT, CP #### [address] [address] [employer]: Daniel Rosado MD Abs.Imm.Granulocyte 0.06 k/uL Normal 0.00-0.30 [facility] Comment on above: Performed By: #### C DP, PTT, PT, CP #### [address] [address] [employer]: Daniel Rosado MD Abs.Neutrophil (Seg) 5.10 k/uL Normal 1.50-8.10 [facility] Comment on above: Performed By: #### C DP, PTT, PT, CP #### [address] [address] [employer]: Daniel Rosado MD Basophils/100 WBC (Bld) 1 % Normal 0-2 [facility] Comment on above: Performed By: #### C DP, PTT, PT, CP #### [address] [address] [employer]: Daniel Rosado MD Eosinophils (Bld) [#/Vol] 0.16 10*3/uL Normal 0.00-0.44 [facility] Comment on above: Performed By: #### C DP, PTT, PT, CP #### [address] [address] [employer]: Daniel Rosado MD Eosinophils/100 WBC (Bld) 2 % Normal 1-4 [facility] Comment on above: Performed By: #### C DP, PTT, PT, CP #### [address] [address] [employer]: Daniel Rosado MD Erythrocyte distribution width (RBC) [Ratio] 13.6 % Normal 11.8-14.4 [facility] Comment on above: Performed By: #### C DP, PTT, PT, CP #### [place] [address] [employer]: Daniel Rosado MD Hematocrit (Bld) [Volume fraction] 34.3 % Low 40.7-50.3 [facility] Comment on above: Performed By: #### C DP, PTT, PT, CP #### [place] [address] [employer]: Daniel Rosado MD Hemoglobin (Bld) [Mass/Vol] 11.5 g/dL Low 13.0-17.0 [facility] Comment on above: Performed By: #### C DP, PTT, PT, CP #### [address] [address] [employer]: Daniel Rosado MD Immature granulocytes/100 WBC (Bld) 1 % High 0 [facility] Comment on above: Performed By: #### C DP, PTT, PT, CP #### [address] [address] [employer]: Daniel Rosado MD Lymphocytes (Bld) [#/Vol] 1.02 10*3/uL Low 1.10-3.70 [facility] Comment on above: Performed By: #### C DP, PTT, PT, CP #### [address] [address] [employer]: Daniel Rosado MD Lymphocytes/100 WBC (Bld) 14 % Low 24-43 [facility] Comment on above: Performed By: #### C DP, PTT, PT, CP #### [place] [address] [employer]: Daniel Rosado MD MCH (RBC) [Entitic mass] 32.9 pg Normal 25.2-33.5 [facility] Comment on above: Performed By: #### C DP, PTT, PT, CP #### [place] [address] [employer]: Daniel Rosado MD MCHC (RBC) [Mass/Vol] 33.5 g/dL Normal 28.4-34.8 [facility] Comment on above: Performed By: #### C DP, PTT, PT, CP #### [place] [address] [employer]: Daniel Rosado MD MCV (RBC) [Entitic vol] 98.0 fL Normal 82.6-102.9 [facility] Comment on above: Performed By: #### C DP, PTT, PT, CP #### [place] [address] [employer]: Daniel Rosado MD Monocytes (Bld) [#/Vol] 0.86 10*3/uL Normal 0.10-1.20 [facility] Comment on above: Performed By: #### C DP, PTT, PT, CP #### [place] [address] [employer]: Daniel Rosado MD Monocytes/100 WBC (Bld) 12 % Normal 3-12 [facility] Comment on above: Performed By: #### C DP, PTT, PT, CP #### [address] [address] [employer]: Daniel Rosado MD Neutrophil (Seg) 70 % High 36-65 [facility] Comment on above: Performed By: #### C DP, PTT, PT, CP #### [address] [address] [employer]: Daniel Rosado MD NRBC Automated 0.0 per 100 WBC Normal 0.0 [facility] Comment on above: Performed By: #### C DP, PTT, PT, CP #### [address] [address] [employer]: Daniel Rosado MD Platelet mean volume (Bld) [Entitic vol] 8.9 fL Normal 8.1-13.5 [facility] Comment on above: Performed By: #### C DP, PTT, PT, CP #### [address] [address] [employer]: Daniel Rosado MD Platelets (Bld) [#/Vol] 240 10*3/uL Normal 138-453 [facility] Comment on above: Performed By: #### C DP, PTT, PT, CP #### [address] [address] [employer]: Daniel Rosado MD RBC (Bld) [#/Vol] 3.50 10*6/uL Low 4.21-5.77 [facility] Comment on above: Performed By: #### C DP, PTT, PT, CP #### [address] [address] [employer]: Daniel Rosado MD WBC (Bld) [#/Vol] 7.3 10*3/uL Normal 3.5-11.3 [facility] Comment on above: Performed By: #### C DP, PTT, PT, CP #### [facility] [employer] [address] [place] [phone] [employer]: Daniel Rosado MD PTon 03-12-2024 INR Coag (PPP) [Relative time] 1.0 {INR} Normal [facility] Comment on above: Result Comment: Therapeutic Range: Moderate Anticoagulant Intensity: INR = 2.0-3.0 High Anticoagulant Intensity: INR = 2.5-3.5 Performed By: #### C DP, PTT, PT, CP #### [facility] [employer] [address] [place], [place] [phone] [employer]: Daniel Rosado MD PT Coag (PPP) [Time] 13.0 s Normal 11.7-14.9 [facility] Comment on above: Performed By: #### C DP, PTT, PT, CP #### [facility] [address] [place] [phone] [employer]: Daniel Rosado MD 36on 01-18-2024 36 Regarding echo, GEETHA' s and lipid results: MD Ya Godwin MA His echo, ABIs, and lipids are all okay. Follow-up in 6 months. Patient informed. Normal [facility] Office Visiton 12-26-2023 Follow-up visit [id number] Mike Osei 1950 M Date Provider Department Center 12/26/2023 ARON ONEAL [facility] Family History Problem Relation Age of Onset Cancer Mother Cancer Brother Diabetes Paternal Grandmother Family Status - Relation Status Age at Mother Brother Paternal Grandmother Level of Service:23966 [place] OFFICE/OUTPATIENT ESTABLISHED MOD MDM 30 MIN [place] TESTOSTERONE, TOTALon 2022 Testosterone [Mass/Vol] 215 ng/dL Critically low 264-916 [facility] Comment on above: Result Comment: Adul t male reference interval is based on a population of healthy nonobese males (BMI <30) between 19 and 39 years old. ashley Lee.al. JCEM 2017,102;8984-1523. PMID: [id number]. Performed By: #### T ESTTOT #### [facility] [address] [place] [address] Dr. Marilin Rothman CBC AUTO DIFFon 01-13-2023 BASO # 0.0 103/ul Normal 0.0-0.1 [facility] Comment on above: Performed By: #### T SH, BMP #### [facility] [address] [place] [address] Dr. Marilin Rothman Basophils/100 WBC (Bld) 0.3 % Normal 0.2-2.0 [facility] Comment on above: Performed By: #### T SH, BMP #### [facility] [address] [place] [address] Dr. Marilin Rothman EO # 0.0 103/ul Normal 0.0-0.7 [facility] Comment on above: Performed By: #### T SH, BMP #### [facility] [address] [place] [address] Dr. Marilin Rothman Eosinophils/100 WBC (Bld) 0.2 % Critically low 0.9-7.0 [facility] Comment on above: Performed By: #### T SH, BMP #### [facility] [address] [place] [address] Dr. Marilin Rothman Erythrocyte distribution width (RBC) [Ratio] 13.3 % Normal 11.0-15.0 [facility] Comment on above: Performed By: #### T SH, BMP #### [facility] [address] [place] [address] Dr. Marilin Rothman Hematocrit (Bld) [Volume fraction] 38.2 % Critically low 42.0-54.0 [facility] Comment on above: Performed By: #### T SH, BMP #### [facility] [address] [place] [address] Dr. Marilin Rothman Hemoglobin (Bld) [Mass/Vol] 13.1 g/dL Critically low 14.0-18.0 [facility] Comment on above: Performed By: #### T SH, BMP #### [facility] [address] [address] [address] Marilin Rothman IG # 0.08 10e3/ul Critically high 0.00-0.03 [facility] Comment on above: Performed By: #### T SH, BMP #### [facility] [address] [address] [address] Marilin Rothman IG % 0.8 % Critically high 0.0-0.5 [facility] Comment on above: Performed By: #### T SH, BMP #### [facility] [address] [address] [address] Marilin Rothman LYMPH # 1.0 103/ul Critically low 1.2-3.8 [facility] Comment on above: Performed By: #### T SH, BMP #### [facility] [address] [address] [address] Marilin Rothman Lymphocytes/100 WBC (Bld) 10.1 % Critically low 20.5-60.0 [facility] Comment on above: Performed By: #### T SH, BMP #### [facility] [address] [place] [address] Dr. Marilin Rothman MANUAL DIFF REQ NO Normal [facility] Comment on above: Performed By: #### T SH, BMP #### [facility] [address] [address] [address] Marilin Rothman MCH (RBC) [Entitic mass] 32.8 pg Normal 25.9-34.0 [facility] Comment on above: Performed By: #### T SH, BMP #### [facility] [address] [address] [address] Marilin Rothman MCHC (RBC) [Mass/Vol] 34.3 g/dL Normal 29.9-35.2 [facility] Comment on above: Performed By: #### T SH, BMP #### [facility] [address] [address] [address] Marilin Rothman MCV (RBC) [Entitic vol] 95.7 fL Critically high 80.0-94 .0 [facility] Comment on above: Performed By: #### T SH, BMP #### [facility] [address] [place] [address] Dr. Marilin Rothman MONO # 0.8 103/ul Normal 0.3-0.8 [facility] Comment on above: Performed By: #### T SH, BMP #### [facility] [address] [place] [address] Dr. Marilin Rothman Monocytes/100 WBC (Bld) 8.1 % Normal 1.7-12.0 [facility] Comment on above: Performed By: #### T SH, BMP #### [facility] [address] [place] [address] Dr. Marilin Rothman NEUT # 7.6 103/ul Critically high 1.4-6.5 [facility] Comment on above: Performed By: #### T SH, BMP #### [facility] [address] [place] [address] Dr. Marilin Rothman Neutrophils/100 WBC (Bld) 80.5 % Critically high 43.0-75.0 [facility] Comment on above: Performed By: #### T SH, BMP #### [facility] [address] [place] [address] Dr. Marilin Rothman Platelet mean volume (Bld) [Entitic vol] 8.6 fL Critically low 9.5-13.5 [facility] Comment on above: Performed By: #### T SH, BMP #### [facility] [address] [place] [address] Dr. Marilin Rothman PLT 237 103/ul Normal 150-450 [facility] Comment on above: Performed By: #### T SH, BMP #### [facility] [address] [place], [place] [address] Dr. Marilin Rothman RBC 3.99 106/ul Critically low 4.70-6.10 [facility] Comment on above: Performed By: #### T SH, BMP #### [facility] [address] [place] [address] Dr. Marilin Rothman WBC 9.4 103/ul Normal 4.0-11.0 [facility] Comment on above: Performed By: #### T SH, BMP #### [facility] [address] [place] [address] Dr. Marilin Rothman PROF CHEM 8 (BAS METB)on Anion gap [Moles/Vol] 7.8 mmol/L Normal [facility] Comment on above: Performed By: #### T SH, BMP #### [facility] [address] [place] [address] Dr. Marilin Rothman Calcium [Mass/Vol] 9.9 mg/dL Normal 8.5-10.1 [facility] Comment on above: Performed By: #### T SH, BMP #### [facility] [address] [place] [address] Dr. Marilin Rothman Chloride [Moles/Vol] 102 mmol/L Normal 98-107 [facility] Comment on above: Performed By: #### T SH, BMP #### [facility] [address] [place] [address] Dr. Marilin Rothman CO2 [Moles/Vol] 31.8 mmol/L Normal 21.0-32.0 [facility] Comment on above: Performed By: #### T SH, BMP #### [facility] [address] [place] [address] Dr. Marilin Rothman Creatinine [Mass/Vol] 1.30 mg/dL Normal 0.70-1.30 [facility] Comment on above: Performed By: #### T SH, BMP #### [facility] [address] [place] [address] Dr. Marilin Rothman EGFR-AF RUSSIAN >60 Normal >=60 [facility] Comment on above: Performed By: #### T SH, BMP #### [facility] [address] [place] [address] Dr. Marilin Rothman EGFR-NON AF RUSSIAN 54 mL/min/1.73m2 Critically low >=60 [facility] Comment on above: Performed By: #### T SH, BMP #### [facility] [address] [place] [address] Dr. Marilin Rothman Glucose [Mass/Vol] 110 mg/dL Critically high 74-106 [facility] Comment on above: Performed By: #### T SH, BMP #### [facility] [address] [address] [address] Marilin Rothman Potassium [Moles/Vol] 4.6 mmol/L Normal 3.5-5.1 [facility] Comment on above: Performed By: #### T ALEXANDER, BMP #### [facility] [address] [place] [address] Dr. Marilin Rothman Sodium [Moles/Vol] 137 mmol/L Normal 136-145 [facility] Comment on above: Performed By: #### T ALEXANDER, BMP #### [facility] [address] [place] [address] Dr. Marilin Rothman Urea nitrogen [Mass/Vol] 18.0 mg/dL Normal 7.0-18.0 [facility] Comment on above: Performed By: #### T ALEXANDER, BMP #### [facility] [address] [place] [address] Dr. Marilin Rothman Urea nitrogen/Creatinine [Mass ratio] 13.8 mg/mg Normal [facility] Comment on above: Performed By: #### T ALEXANDER, BMP #### [facility] [address] [place] [address] Dr. Marilin Rothman TSHon 01-13-2023 TSH 0.951 uIU/mL Normal 0.358-3.740 [facility] Comment on above: Performed By: #### T ALEXANDER, BMP #### [facility] [address] [place] [address] Dr. Marilin Rothman XR LSPINE W_OBLS AND FLEX_EX Ton 10-27-2022 [...] by: BRADY MORRIS Date: 2022-10-27 17:11 Normal [facility] CBC AUTO DIFFon 07-27-2022 BASO # 0.1 103/ul Normal 0.0-0.1 [facility] Comment on above: Performed By: #### T SH, BMP #### [facility] [address] [address] [address] Marilin Rothman Basophils/100 WBC (Bld) 0.8 % Normal 0.2-2.0 [facility] Comment on above: Performed By: #### T SH, BMP #### [facility] [address] [address] [address] Marilin Rothman EO # 0.1 103/ul Normal 0.0-0.7 [facility] Comment on above: Performed By: #### T SH, BMP #### [facility] [address] [address] [address] Marilin Rothman Eosinophils/100 WBC (Bld) 2.2 % Normal 0.9-7.0 [facility] Comment on above: Performed By: #### T SH, BMP #### [facility] [address] [address] [address] Marilin Rothman Erythrocyte distribution width (RBC) [Ratio] 13.2 % Normal 11.0-15.0 [facility] Comment on above: Performed By: #### T SH, BMP #### [facility] [address] [address] [address] Marilin Rothman Hematocrit (Bld) [Volume fraction] 38.6 % Critically low 42.0-54.0 [facility] Comment on above: Performed By: #### T SH, BMP #### [facility] [address] [address] [address] Marilin Rothman Hemoglobin (Bld) [Mass/Vol] 12.5 g/dL Critically low 14.0-18.0 [facility] Comment on above: Performed By: #### T SH, BMP #### [facility] [address] [place] [address] Dr. Marilin Rothman IG # 0.06 10e3/ul Critically high 0.00-0.03 [facility] Comment on above: Performed By: #### T SH, BMP #### [facility] [address] [place] [address] Dr. Marilin Rothman IG % 1.0 % Critically high 0.0-0.5 [facility] Comment on above: Performed By: #### T SH, BMP #### [facility] [address] [place] [address] Dr. Marilin Rothman LYMPH # 1.0 103/ul Critically low 1.2-3.8 [facility] Comment on above: Performed By: #### T SH, BMP #### [facility] [address] [place] [address] Dr. Marilin Rothman Lymphocytes/100 WBC (Bld) 15.9 % Critically low 20.5-60.0 [facility] Comment on above: Performed By: #### T SH, BMP #### [facility] [address] [place] [address] Dr. Marilin Rothman MANUAL DIFF REQ NO Normal [facility] Comment on above: Performed By: #### T SH, BMP #### [facility] [address] [place] [address] Dr. Marilin Rothman MCH (RBC) [Entitic mass] 32.2 pg Normal 25.9-34.0 [facility] Comment on above: Performed By: #### T SH, BMP #### [facility] [address] [place] [address] Dr. Marilin Rothman MCHC (RBC) [Mass/Vol] 32.4 g/dL Normal 29.9-35.2 [facility] Comment on above: Performed By: #### T SH, BMP #### [facility] [address] [place] [address] Dr. Marilin Rothman MCV (RBC) [Entitic vol] 99.5 fL Critically high 80.0-94 .0 [facility] Comment on above: Performed By: #### T SH, BMP #### [facility] [address] [place] [address] Dr. Marilin Rothman MONO # 0.8 103/ul Normal 0.3-0.8 [facility] Comment on above: Performed By: #### T SH, BMP #### [facility] [address] [place] [address] Dr. Marilin Rothman Monocytes/100 WBC (Bld) 12.9 % Critically high 1.7-12. 0 [facility] Comment on above: Performed By: #### T SH, BMP #### [facility] [address] [place] [address] Dr. Marilin Rothman NEUT # 4.2 103/ul Normal 1.4-6.5 [facility] Comment on above: Performed By: #### T SH, BMP #### [facility] [address] [place] [address] Dr. Marliin Rothman Neutrophils/100 WBC (Bld) 67.2 % Normal 43.0-75.0 [facility] Comment on above: Performed By: #### T SH, BMP #### [facility] [address] [place] [address] Dr. Marilin Rothman Platelet mean volume (Bld) [Entitic vol] 9.3 fL Critically low 9.5-13.5 [facility] Comment on above: Performed By: #### T SH, BMP #### [facility] [address] [place] [address] Dr. Marilin Rothman PLT 260 103/ul Normal 150-450 [facility] Comment on above: Performed By: #### T SH, BMP #### [facility] [address] [place] [address] Dr. Marilin Rothman RBC 3.88 106/ul Critically low 4.70-6.10 [facility] Comment on above: Performed By: #### T SH, BMP #### [facility] [address] [place] [address] Dr. Marilin Rothman WBC 6.3 103/ul Normal 4.0-11.0 [facility] Comment on above: Performed By: #### T SH, BMP #### [facility] [address] [address] [address] Marilin Rothman LIPID PROFILEon 07-27-2022 CHOL-HDL RATIO NORM SEE BELOW Normal [facility] Comment on above: Result Comment: 3.3 - 4.4 LOW RISK 4.4 - 7.1 AVERAGE RISK 7.1 - 11.0 MODERATE RISK >11.0 HIGH RISK Performed By: #### T SH, BMP #### [facility] [address] [address] [address] Marilin Rothman Cholesterol [Mass/Vol] 155 mg/dL Normal <=200 [facility] Comment on above: Performed By: #### T SH, BMP #### [facility] [address] [address] [address] Marilin Rothman Cholesterol in HDL [Mass/Vol] 76 mg/dL Critically high 40-60 [facility] Comment on above: Performed By: #### T SH, BMP #### [facility] [address] [address] [address] Marilin Rothman Cholesterol in LDL [Mass/Vol] 54.8 mg/dL Normal [facility] Comment on above: Performed By: #### T SH, BMP #### [facility] [address] [address] [address] Marilin Rothman Cholesterol.total/Grace sterol in HDL [Mass ratio] 2.0 {ratio} Normal [facility] Comment on above: Performed By: #### T SH, BMP #### [facility] [address] [address] [address] Marilin Rothman HDL NORMAL > or = 60 mg/dl - LO W CARDIOVASCULAR RISK <40 mg/dl - HIGH CARDIOVASCULAR RISK Normal [facility] Comment on above: Performed By: #### T SH, BMP #### [facility] [address] [address] [address] Marilin Rothman LDL CALC NORMAL SEE BELOW Normal [facility] Comment on above: Result Comment: <100 mg/dl OPTIMAL 100 - 129 mg/dl NEAR OR ABOVE OPTIMAL 130 - 159 mg/dl BORDERLINE HIGH 160 - 189 mg/dl HIGH >190 mg/dl VERY HIGH Performed By: #### T ALEXANDER, BMP #### [facility] [address] [place] [address] Dr. Marilin Rothman Triglyceride [Mass/Vol] 121 mg/dL Normal <=150 [facility] Comment on above: Performed By: #### T ALEXANDER, BMP #### [facility] [address] [place] [address] Dr. Marilin Rothman VLDL CALC 24.2 mg/dL Normal [facility] Comment on above: Performed By: #### T ALEXANDER, BMP #### [facility] [address] [place] [address] Dr. Marilin Rothman LIVER PROFILEon 07-27-2022 Albumin [Mass/Vol] 3.9 g/dL Normal 3.4-5.0 [facility] Comment on above: Performed By: #### T ALEXANDER, BMP #### [facility] [address] [place] [address] Dr. Marilin Rothman Albumin/Globulin [Mass ratio] 1.2 {ratio} Normal [facility] Comment on above: Performed By: #### T ALEXANDER, BMP #### [facility] [address] [place] [address] Dr. Marilin Rothman ALP [Catalytic activity/Vol] 89 U/L Normal 46-116 [facility] Comment on above: Performed By: #### T ALEXANDER, BMP #### [facility] [address] [place] [address] Dr. Marilin Rothman ALT [Catalytic activity/Vol] 26 U/L Normal 16-63 [facility] Comment on above: Performed By: #### T ALEXANDER, BMP #### [facility] [address] [place] [address] Dr. Marilin Rothman AST [Catalytic activity/Vol] 17 U/L Normal 15-37 [facility] Comment on above: Performed By: #### T ALEXANDER, BMP #### [facility] [address] [place] [address] Dr. Marilin Rothman BILI, CONJUGATED 0.2 mg/dL Normal 0.0-0.2 [facility] Comment on above: Performed By: #### T SH, BMP #### [facility] [address] [place] [address] Dr. Marilin Rothman Bilirubin [Mass/Vol] 0.6 mg/dL Normal 0.2-1.0 [facility] Comment on above: Performed By: #### T SH, BMP #### [facility] [address] [place] [address] Dr. Marilin Rothman Globulin (S) [Mass/Vol] 3.2 g/dL Normal [facility] Comment on above: Performed By: #### T ALEXANDER, BMP #### [facility] [address] [place] [address] Dr. Marilin Rothman Protein [Mass/Vol] 7.1 g/dL Normal 6.4-8.2 [facility] Comment on above: Performed By: #### T ALEXANDER, BMP #### [facility] [address] [place] [address] Dr. Marilin Rothman PROF CHEM 8 (BAS METB)on Anion gap [Moles/Vol] 13.7 mmol/L Normal [facility] Comment on above: Performed By: #### T ALEXANDER, BMP #### [facility] [address] [place] [address] Dr. Marilin Rothman Calcium [Mass/Vol] 9.3 mg/dL Normal 8.5-10.1 [facility] Comment on above: Performed By: #### T SH, BMP #### [facility] [address] [place] [address] Dr. Marilin Rothman Chloride [Moles/Vol] 96 mmol/L Critically low 98-107 [facility] Comment on above: Performed By: #### T SH, BMP #### [facility] [address] [place] [address] Dr. Marilin Rothman CO2 [Moles/Vol] 25.9 mmol/L Normal 21.0-32.0 [facility] Comment on above: Performed By: #### T ALEXANDER, BMP #### [facility] [address] [place] [address] Dr. Marilin Rothman Creatinine [Mass/Vol] 1.10 mg/dL Normal 0.70-1.30 [facility] Comment on above: Performed By: #### T SH, BMP #### [facility] [address] [place] [address] Dr. Marilin Rothman EGFR-AF RUSSIAN >60 Normal >=60 [facility] Comment on above: Performed By: #### T SH, BMP #### [facility] [address] [place] [address] Dr. Marilin Rothman EGFR-NON AF RUSSIAN >60 Normal >=60 [facility] Comment on above: Performed By: #### T SH, BMP #### [facility] [address] [place] [address] Dr. Marilin Rothman Glucose [Mass/Vol] 93 mg/dL Normal 74-106 [facility] Comment on above: Performed By: #### T SH, BMP #### [facility] [address] [place] [address] Dr. Marilin Rothman Potassium [Moles/Vol] 4.6 mmol/L Normal 3.5-5.1 [facility] Comment on above: Performed By: #### T SH, BMP #### [facility] [address] [place] [address] Dr. Marilin Rothman Sodium [Moles/Vol] 131 mmol/L Critically low 136-145 [facility] Comment on above: Performed By: #### T SH, BMP #### [facility] [address] [place] [address] Dr. Marilin Rothman Urea nitrogen [Mass/Vol] 14.0 mg/dL Normal 7.0-18.0 [facility] Comment on above: Performed By: #### T SH, BMP #### [facility] [address] [place] [address] Dr. Marilin Rothman Urea nitrogen/Creatinine [Mass ratio] 12.7 mg/mg Normal [facility] Comment on above: Performed By: #### T SH, BMP #### [facility] [address] [place] [address] Dr. Marilin Rothman TSHon 07-27-2022 TSH 1.933 uIU/mL Normal 0.358-3.740 [facility] Comment on above: Performed By: #### T SH, BMP #### [facility] [address] [place] [address] Dr. Marilin Rothman VITAMIN D 25 OHon 07-27-2022 VIT D 25-OH 85.4 ng/mL Normal [facility] Comment on above: Performed By: #### T SH, BMP #### [facility] [address] [place] [address] Dr. Marilin Rothman VIT D RANGES SEE BELOW [facility] Comment on above: Result Comment: <20 ng/mL Vit D deficient 20 - <30 ng/mL Vit D insufficient 30 - 100 ng/mL Vit D sufficient >100 ng/mL Potential Toxicity Performed By: #### T ALEXANDER, BMP #### [facility] [address] [place] [address] Dr. Marilin Rothman ACID FAST SMEAR AND CXon Acid Fast Culture Negative Normal [facility] Comment on above: Result Comment: No a amos fast bacilli isolated after 6 weeks. Performed By: #### T SH, BMP #### [facility] [address] [place] [address] Dr. Marilin Rothman Acid Fast Smear Negative Normal [facility] Comment on above: Performed By: #### T SH, BMP #### [facility] [address] [place] [address] Dr. Marilin Rothman AFB Specimen Processing Direct Inoculation Normal [facility] Comment on above: Performed By: #### T SH, BMP #### [facility] [address] [place] [address] Dr. Marilin Rothman FUNGAL CULTUREon 04-09-2022 Fungus (Mycology) Culture Final report [facility] Comment on above: Performed By: #### C XFUN #### [facility] [address] [place] [address] Dr. Marilin Rothman Fungus Stain Final report Normal [facility] Comment on above: Performed By: #### C XFUN #### [facility] [address] [address] [address] Marilin Rothman Result 1 Comment Normal [facility] Comment on above: Result Comment: RITA/ Calcofluor preparation: no fungus observed. Performed By: #### C XFUN #### [facility] [address] [address] [address] Marilin Rothman Result Comment: No y east or mold isolated after 4 weeks. LOWER RESPIRATORY CULTUREon 03-14-2022 Lower Respiratory Culture Final report Normal [facility] Comment on above: Performed By: #### C XLORES #### [facility] [address] [place] [address] Dr. Marilin Rothman Result 1 Comment Normal [facility] Comment on above: Result Comment: Rout ine respiratory carlito Performed By: #### C XLORES #### [facility] [address] [place] [address] Dr. Marilin Rothman CYTOLOGYon 03-11-2022 SENT TO REF LAB 03/12/22 Normal [facility] Comment on above: Performed By: #### C YTO #### [facility] [address] [place] [address] Dr. Marilin Rothman GRAM STAINon 03-11-2022 COMMENTS NO ORGANISMS OBSERVED Normal [facility] Comment on above: Performed By: #### G STAIN #### [facility] [address] [place] [address] Dr. Marilin Rothman DIPHTHEROIDS Normal [facility] Comment on above: Performed By: #### G STAIN #### [facility] [address] [place] [address] Dr. Marilin Rothman EPITHELIALS FEW Normal [facility] Comment on above: Performed By: #### G STAIN #### [facility] [address] [place] [address] Dr. Marilin Rothman FUNGAL ELEMENTS [facility] Comment on above: Performed By: #### G STAIN #### [facility] [address] [place] [address] Dr. Marilin Rothman GRAM NEG BACILLI Normal [facility] Comment on above: Performed By: #### G STAIN #### [facility] [address] [place] [address] Dr. Marilin Rothman GRAM NEG DIPPLOCOCCI Normal [facility] Comment on above: Performed By: #### G STAIN #### [facility] [address] [place] [address] Dr. Marilin Rothman GRAM POS BACILLI Normal [facility] Comment on above: Performed By: #### G STAIN #### [facility] [address] [place] [address] Dr. Marilin Rothman GRAM POSITIVE COCCI Normal [facility] Comment on above: Performed By: #### G STAIN #### [facility] [address] [address] [address] Marilin Rothman GRAM STAIN SOURCE R. LOWER LOBE LAVAGE Normal [facility] Comment on above: Performed By: #### G STAIN #### [facility] [address] [place] [address] Dr. Marilin Rothman GS_DIPTH Normal [facility] Comment on above: Performed By: #### G STAIN #### [facility] [address] [place] [address] Dr. Marilin Rothman WBC FEW Normal [facility] Comment on above: Performed By: #### G STAIN #### [facility] [address] [place] [address] Dr. Marilin Rothman IMMUNOGLOBULIN E, TOTALon Immunoglobulin E, Total 129 IU/mL Normal 6-495 [facility] Comment on above: Performed By: #### I GETOT #### [facility] [address] [place] [address] Dr. Marilin Rothman CBC AUTO DIFFon 03-01-2022 BASO # 0.1 103/ul Normal 0.0-0.1 [facility] Comment on above: Performed By: #### T SH, BMP #### [facility] [address] [place] [address] Dr. Marilin Rothman Basophils/100 WBC (Bld) 0.9 % Normal 0.2-2.0 [facility] Comment on above: Performed By: #### T SH, BMP #### [facility] [address] [place] [address] Dr. Marilin Rothman EO # 0.7 103/ul Normal 0.0-0.7 [facility] Comment on above: Performed By: #### T SH, BMP #### [facility] [address] [place] [address] Dr. Marilin Rothman Eosinophils/100 WBC (Bld) 9.2 % Critically high 0.9-7.0 [facility] Comment on above: Performed By: #### T SH, BMP #### [facility] [address] [place] [address] Dr. Marilin Rothman Erythrocyte distribution width (RBC) [Ratio] 13.0 % Normal 11.0-15.0 [facility] Comment on above: Performed By: #### T SH, BMP #### [facility] [address] [place] [address] Dr. Marilin Rothman Hematocrit (Bld) [Volume fraction] 39.5 % Critically low 42.0-54.0 [facility] Comment on above: Performed By: #### T SH, BMP #### [facility] [address] [place] [address] Dr. Marilin Rothman Hemoglobin (Bld) [Mass/Vol] 13.0 g/dL Critically low 14.0-18.0 [facility] Comment on above: Performed By: #### T SH, BMP #### [facility] [address] [place] [address] Dr. Marilin Rothman IG # 0.03 10e3/ul Normal 0.00-0.03 [facility] Comment on above: Performed By: #### T SH, BMP #### [facility] [address] [place] [address] Dr. Marilin Rothman IG % 0.4 % Normal 0.0-0.5 [facility] Comment on above: Performed By: #### T SH, BMP #### [facility] [address] [place] [address] Dr. Marilin Rothman LYMPH # 1.1 103/ul Critically low 1.2-3.8 [facility] Comment on above: Performed By: #### T SH, BMP #### [facility] [address] [place] [address] Dr. Marilin Rothman Lymphocytes/100 WBC (Bld) 14.2 % Critically low 20.5-60.0 [facility] Comment on above: Performed By: #### T SH, BMP #### [facility] [address] [place] [address] Dr. Marilin Rothman MANUAL DIFF REQ NO Normal [facility] Comment on above: Performed By: #### T SH, BMP #### [facility] [address] [place] [address] Dr. Marilin Rothman MCH (RBC) [Entitic mass] 32.2 pg Normal 25.9-34.0 [facility] Comment on above: Performed By: #### T SH, BMP #### [facility] [address] [place] [address] Dr. Marilin Rothman MCHC (RBC) [Mass/Vol] 32.9 g/dL Normal 29.9-35.2 [facility] Comment on above: Performed By: #### T SH, BMP #### [facility] [address] [place] [address] Dr. Marilin Rothman MCV (RBC) [Entitic vol] 97.8 fL Critically high 80.0-94 .0 [facility] Comment on above: Performed By: #### T SH, BMP #### [facility] [address] [place] [address] Dr. Marilin Rothman MONO # 0.9 103/ul Critically high 0.3-0.8 [facility] Comment on above: Performed By: #### T SH, BMP #### [facility] [address] [place] [address] Dr. Marilin Rothman Monocytes/100 WBC (Bld) 11.8 % Normal 1.7-12.0 [facility] Comment on above: Performed By: #### T SH, BMP #### [facility] [address] [place] [address] Dr. Marilin Rothman NEUT # 4.7 103/ul Normal 1.4-6.5 [facility] Comment on above: Performed By: #### T SH, BMP #### [facility] [address] [address] [address] Marilin Rothman Neutrophils/100 WBC (Bld) 63.5 % Normal 43.0-75.0 [facility] Comment on above: Performed By: #### T SH, BMP #### [facility] [address] [address] [address] Marilin Rothman Platelet mean volume (Bld) [Entitic vol] 8.7 fL Critically low 9.5-13.5 [facility] Comment on above: Performed By: #### T SH, BMP #### [facility] [address] [place] [address] Dr. Marilin Rothman PLT 250 103/ul Normal 150-450 [facility] Comment on above: Performed By: #### T SH, BMP #### [facility] [address] [place] [address] Dr. Marilin Rothman RBC 4.04 106/ul Critically low 4.70-6.10 [facility] Comment on above: Performed By: #### T SH, BMP #### [facility] [address] [place] [address] Dr. Marilin Rothman WBC 7.5 103/ul Normal 4.0-11.0 [facility] Comment on above: Performed By: #### T SH, BMP #### [facility] [address] [place] [address] Dr. Marilin Rothman PROTIMEon 03-01-2022 INR Coag (PPP) [Relative time] 0.97 {INR} Normal [facility] Comment on above: Performed By: #### T SH, BMP #### [facility] [address] [place] [address] Dr. Marilin Rothman INR GUIDELINES SEE BELOW Normal [facility] Comment on above: Result Comment: TOAN RED INR: 2.0 - 3.0 CONDITIONS NOT LISTED BELOW 2.5 - 3.5 FOR PROSTHETIC HEART VALVE REPLACEMENT 2.5 - 3.5 RECURRENT THROMBOSIS Performed By: #### T SH, BMP #### [facility] [address] [place] [address] Dr. Marilin Rothman PT Coag (PPP) [Time] 10.5 s Normal 9.0-11.6 [facility] Comment on above: Performed By: #### T SH, BMP #### [facility] [address] [place] [address] Dr. Marilin Rothman PTTon 03-01-2022 aPTT Coag (Bld) [Time] 27.5 s Normal 22.3-36.2 [facility] Comment on above: Performed By: #### T SH, BMP #### [facility] [address] [place] [address] Dr. Marilin Rothman ASPERGILLUS AB, QUANTITATIVE DIDon 02-28-2022 Aspergillus flavus Negative Normal Neg:<1:1 [facility] Comment on above: Performed By: #### T SH, BMP #### [facility] [address] [place] [address] Dr. Marilin Rothman Aspergillus fumigatus Negative Normal Neg:<1:1 [facility] Comment on above: Performed By: #### T SH, BMP #### [facility] [address] [place] [address] Dr. Marilin Rothman Aspergillus niger Negative Normal Neg:<1:1 [facility] Comment on above: Performed By: #### T SH, BMP #### [facility] [address] [place] [address] Dr. Marilin Rothman ANTI NEUTROPHIL CYTOPLASMIC AB (ANCA) PRon 02-26-2022 Antimyeloperoxidase (MPO) Abs <9.0 Normal 0.0-9.0 [facility] Comment on above: Result Comment: Perf ormed at: BN Performed By: #### A NCAP #### [facility] [address] [place] [address] Dr. Marilin Rothman Antiproteinase 3 (GA-3) Abs <3.5 Normal 0.0-3.5 [facility] Comment on above: Result Comment: Perf ormed at: BN Performed By: #### A NCAP #### [facility] [address] [place] [address] Dr. Marilin Rothman Atypical pANCA <1:20 Normal Neg:<1:20 [facility] Comment on above: Result Comment: The atypical pANCA pattern has been observed in a significant percentage of patients with ulcerative colitis, primary sclerosing cholangitis and autoimmune hepatitis. Performed at: CB Performed By: #### A NCAP #### [facility] [address] [place], [place] [address] Dr. Marilin Rothman Cytoplasmic (C-ANCA) <1:20 Normal Neg:<1:20 [facility] Comment on above: Result Comment: Perf ormed at: CB Performed By: #### A NCAP #### [facility] [address] [place], [place] [address] Dr. Marilin Rothman Perinuclear (P-ANCA) <1:20 Normal Neg:<1:20 [facility] Comment on above: Result Comment: The presence of positive fluorescence exhibiting P-ANCA or C-ANCA patterns alone is not specific for the diagnosis of Antwan's Granulomatosis (WG) or microscopic polyangiitis. Decisions about treatment should not be based solely on ANCA IFA results. The International ANCA Group Consensus recommends follow up testing of positive sera with both GA-3 and MPO-ANCA enzyme immunoassays. As many as 5% serum samples are positive only by EIA. Ref. AM J Clin Pathol 1999;111:507-513. Performed at: CB Performed By: #### A NCAP #### [facility] [address] [place], [place] [address] LUNG CANCER SCREENINGon [...] since prior study. Electronically authenticated by: BRADY MORRIS Date: 2022-02-24 11:30 Normal [facility] PROF CHEM 8 (BAS METB)on Anion gap [Moles/Vol] 8.6 mmol/L Normal [facility] Comment on above: Performed By: #### B MP #### [facility] [address] [place] [address] [address] Marilin Rothman Calcium [Mass/Vol] 9.0 mg/dL Normal 8.5-10.1 [facility] Comment on above: Performed By: #### B MP #### [facility] [address] [place] [address] [address] Marilin Rothman Chloride [Moles/Vol] 100 mmol/L Normal 98-107 [facility] Comment on above: Performed By: #### B MP #### [facility] [address] [place] [address] [address] Marilin Rothman CO2 [Moles/Vol] 30.5 mmol/L Normal 21.0-32.0 [facility] Comment on above: Performed By: #### B MP #### [facility] [address] [place] [address] [address] Marilin Rothman Creatinine [Mass/Vol] 1.35 mg/dL Critically high 0.70-1.30 [facility] Comment on above: Performed By: #### B MP #### [facility] [address] [place] [address] [address] Marilin Rothman EGFR-AF RUSSIAN >60 Normal >=60 [facility] Comment on above: Performed By: #### B MP #### [facility] [address] [place], [place] [address] Dr. Marilin Rothman EGFR-NON AF RUSSIAN 52 mL/min/1.73m2 Critically low >=60 [facility] Comment on above: Performed By: #### B MP #### [facility] [address] [place], [place] [address] Dr. Marilin Rothman Glucose [Mass/Vol] 100 mg/dL Normal 74-106 [facility] Comment on above: Performed By: #### B MP #### [facility] [address] [place], [place] [address] Dr. Marilin Rothman Potassium [Moles/Vol] 4.1 mmol/L Normal 3.5-5.1 [facility] Comment on above: Performed By: #### B MP #### [facility] [address] [place] [address] [address] Marilin Rothman Sodium [Moles/Vol] 135 mmol/L Critically low 136-145 [facility] Comment on above: Performed By: #### B MP #### [facility] [address] [place], [place] [address] Dr. Marilin Rothman Urea nitrogen [Mass/Vol] 13.0 mg/dL Normal 7.0-18.0 [facility] Comment on above: Performed By: #### B MP #### [facility] [address] [place] [id number] Marilin Rothman Urea nitrogen/Creatinine [Mass ratio] 9.6 mg/mg Normal [facility] Comment on above: Performed By: #### B MP #### [facility] [address] [place] [address] [address] Marilin Rothman Cardiovascular Lab Reporton 08-22-2020 Cardiovascular Lab Report [facility] Patient Name: Mike Osei [facility] MR #: [id number] Physician: Sanket Reyes M.D. Department of Service Date: 08/21/2020 Medicine Birthdate: 1950 Division of Room #: CC Cardiology Adult Cardiovascular Services [place] [address] Cardiovascular Laboratory Report LOT ASSOCIATE: Aron Anderson M.D. FINAL IMPRESSION: Successful angioplasty, [...] inner cannula was then exchanged for a 5-Namibian sheath. Through the 5-Namibian sheath, a Uni-Flush catheter was introduced into the abdominal aorta and the aortic bifurcation was traversed using a 0.035 hydrophilic guidewire. Next, the catheter was then placed in the right femoral artery and angiography was performed. A guidewire exchange was then performed removing the catheter and sheath and replacing these with a 6-Namibian Renaldo through which a NaviCross was introduced [...] hemostasis was achieved with manual pressure. A Spartacore wire was advanced antegrade through the catheter [...] exchanged for an Renaldo sheath with a TuSeawindy-Kenroy Adapter. Through this, a 6 mm x [...] was achieved. Final angiography was performed. A 6-Namibian Angio-Seal was deployed. Adequate hemostasis was achieved. [...] Anderson including ultrasound imaging. Electronically Signed by: Sanekt Reyes M.D. 08/28/2020 10:25 A Sanket Reyes M.D. Date Dict: 08/21/2020/01:28 P/Sanket Reyes M.D. Date Trans: 08/22/2020 02:59 A/noreen [id number] cc: Pool Garcia M.D. [address] [facility] [address] [place] [facility] Cardiovascular Lab Reporton 05-06-2020 Cardiovascular Lab Report [facility] Patient Name: Mike Osei [facility] MR #: [id number] Physician: Aron Daniel of Brady Anderson Medicine Service Date: 05/05/2020 Division of Birthdate: 1950 Cardiology Room #: [id number] Adult Cardiovascular Services [address] [place] [address] Cardiovascular Laboratory Report INDICATION: The patient is [...] right superficial femoral artery. 6. Use of [place] IVUS-guided reentry catheter. 7. 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 METHODS: Procedure was explained to the patient with risks and benefits. He signed informed consent. He was brought to research lab assistant in a fasting state. The left groin area was prepped and draped in usual fashion. Using ultrasound guidance and micropuncture technique, the left common femoral artery was accessed. The inner cannula was advanced. Limited left femoral angiography was performed followed by upsizing to a 6-Namibian x 11 cm sheath. Next, a 5-Namibian Uni-Flush catheter was advanced and placed in the distal abdominal aorta. An angled Glidewire was then used to cross the aortoiliac bifurcation and the catheter was advanced to the level of the right common femoral artery and then over a Magic Torque wire, this was exchanged along with the access sheath to a 6-Namibian x 55 cm Renaldo sheath. Right lower [...] At that time, we advanced an angled Leslie catheter through the antegrade sheath over a straight Glidewire and we crossed subintimally proximally and advanced to the proximal to mid segment of the SFA. We advanced a pyridine recovery operator 5 x 40 mm balloon and used that balloon to perform reverse CART technique with multiple inflations using that balloon as well as an NC Quantum [place] 3.0 x 15 mm noncompliant balloon advanced through the retrograde wire for CART technique. Repeated multiple inflations and multiple attempts were performed at multiple levels. However, we were not able to join the 2 subintimal spaces and therefore, we abandoned this technique. We decided to go with the [place] reentry catheter from the antegrade access. This was then advanced to the subintimal space in the mid SFA over a [place] wire and using the standard technique, we identified under intravascular ultrasound the true lumen and once this was positioned in the 12 o'clock position, the needle was advanced the appropriate amount and after 2 attempts, the Seattle wire was able to advance into the true lumen. This was confirmed as the wire came in parallel with the retrograde wire. However, at this point, while trying to remove the Santa Fe catheter, the Seattle wire got kinked and entangled, and we were not able to retrieve the [place] Fe catheter over the wire and we had to remove the both wire and Santa Fe catheter assembly together and therefore, lost access into the true lumen. We repeated this process again and we are able to advance the [place] catheter into position and multiple attempts at this point were made to gain access into the true lumen, however, those failed and we had to retrieve the [place] catheter and terminate the procedure at this time. The [place] catheter and the Renaldo sheath were removed [...] He will be admitted for overnight observation. PRODUCER ASSISTANT: Shahzad Caballero MD. TOTAL FLUORO TIME: 101.28 [...] Anderson M.D. Date Trans: 05/06/2020 05:57 A/noreen [id number] cc: Pool Garcia M.D. [address] [facility] [address] Normal [facility] APTTon 04-17-2020 aPTT Coag (Bld) [Time] 27.5 s Normal 25.0-35.0 [facility] Comment on above: Order Comment: This order is a replacement of the rejected order with accession [id number]. Result Comment: ALL RESULTS MUST BE INTERPRETED [...] PURPOSE. Performed By: #### 6 2586 #### [facility] [address] [place] [address], [facility] BASIC METABOLIC PANELon 06-2 5-2020 Calcium [Mass/Vol] 8.4 mg/dL Low 8.6-10.3 [facility] Comment on above: Order Comment: No: D o not add to previous draw Performed By: #### 6 2586 #### [facility] [address] [place] [address], [place] Chloride [Moles/Vol] 98 mmol/L Normal 98-107 [facility] Comment on above: Order Comment: No: D o not add to previous draw Performed By: #### 6 2586 #### [facility] [address] [place] [address], [place] CO2 [Moles/Vol] 25 mmol/L Normal 21-31 [facility] Comment on above: Order Comment: No: D o not add to previous draw Performed By: #### 6 2586 #### [facility] [address] [place] [address], [place] Creatinine [Mass/Vol] 1.26 mg/dL Normal 0.70-1.30 [facility] Comment on above: Order Comment: No: D o not add to previous draw Performed By: #### 6 2586 #### [facility] [address] [place] [address], [place] GFR/1.73 sq M predicted among blacks MDRD (S/P/Bld) [Vol rate/Area] mL/min/{1.73_m2} Normal >60 [facility] Comment on above: Order Comment: No: D o not add to previous draw Result Comment: Calc ulation may not be valid for patients over 70 years Performed By: #### 6 2586 #### [facility] [address] [place] [address], [place] GFR/1.73 sq M predicted among non-blacks MDRD (S/P/Bld) [Vol rate/Area] 56 ml/min/1.73sq m Abnormal >60 [facility] Comment on above: Order Comment: No: D o not add to previous draw Result Comment: Calc ulation may not be valid for patients over 70 years Performed By: #### 6 2586 #### [facility] [address] [place] [address], [place] Glucose [Mass/Vol] 123 mg/dL High 70-100 [facility] Comment on above: Order Comment: No: D o not add to previous draw Performed By: #### 6 2586 #### [facility] [address] [place] [address], [place] Potassium [Moles/Vol] 3.6 mmol/L Normal 3.5-5.1 [facility] Comment on above: Order Comment: No: D o not add to previous draw Performed By: #### 6 2586 #### [facility] [address] [place] [address], [place] Sodium [Moles/Vol] 129 mmol/L Low 136-145 [facility] Comment on above: Order Comment: No: D o not add to previous draw Performed By: #### 6 2586 #### [facility] [address] [place] [address], [place] Urea nitrogen [Mass/Vol] 14 mg/dL Normal 7-25 [facility] Comment on above: Order Comment: No: D o not add to previous draw Performed By: #### 6 2586 #### [facility] [address] [place] [address], [facility] CBC COMPLETE BLOOD COUNTon 0 04-17-2020 Erythrocyte distribution width (RBC) [Ratio] 14.2 % Normal 11.5-15.0 [facility] Comment on above: Order Comment: No: D o not add to previous draw Performed By: #### 6 2586 #### [facility] [address] [place] [address], [place] Hematocrit (Bld) [Volume fraction] 32.2 % Low 39.0-50.0 [facility] Comment on above: Order Comment: No: D o not add to previous draw Performed By: #### 6 2586 #### [facility] [address] [place] [address], [facility] Hemoglobin (Bld) [Mass/Vol] 10.8 g/dL Low 13.0-17.0 [facility] Comment on above: Order Comment: No: D o not add to previous draw Performed By: #### 6 2586 #### [facility] [address] [place] [address], [facility] MCH (RBC) [Entitic mass] 32.7 pg Normal 27.0-33.0 [facility] Comment on above: Order Comment: No: D o not add to previous draw Performed By: #### 6 2586 #### [facility] [address] [facility] [place] [address], [facility] MCHC (RBC) [Mass/Vol] 33.5 g/dL Normal 32.0-35.0 [facility] Comment on above: Order Comment: No: D o not add to previous draw Performed By: #### 6 2586 #### [facility] [address] [facility] [place] [address], [facility] MCV (RBC) [Entitic vol] 97.6 fL Normal 82.0-98.0 [facility] Comment on above: Order Comment: No: D o not add to previous draw Performed By: #### 6 2586 #### [facility] [address] [facility] [place] [address], [facility] Nucleated RBC/100 WBC (Bld) [Ratio] 0 % Normal 0-0 [facility] Comment on above: Order Comment: No: D o not add to previous draw Performed By: #### 6 2586 #### [facility] [address] [facility] [place] [address], [facility] PLAT CNT 217 10*3/uL Normal 150-400 [facility] Comment on above: Order Comment: No: D o not add to previous draw Performed By: #### 6 2586 #### [facility] [place] [address], [facility] RBC (Bld) [#/Vol] 3.30 10*6/uL Low 4.20-5.70 [facility] Comment on above: Order Comment: No: D o not add to previous draw Performed By: #### 6 2586 #### [facility] [address] [facility] [place] [address], [facility] WBC (Bld) [#/Vol] 7.83 10*3/uL Normal 4.00-10.60 [facility] Comment on above: Order Comment: No: D o not add to previous draw Performed By: #### 6 2586 #### [place] [address], [facility] CT ABDOMEN AND PELVIS WO CON TRASTon 04-17-2020 CT ABDOMEN AND PELVIS WO CONTRAST [facility] Department of Radiology [address] [place] [id number] Patient Name: MIKE OSEI : 1950 Sex: M Age: Race: White Pt. Location: [address] [place] [address] Patient Status: O Ordered Date: 04/17/2020 12:55:00 [...] being circumaortic. Approved by:Domingo Green04/17/2020 1:58 AM. IEliud,have reviewed the images and reports Electronically signed: Eliud Mcguire. Transcribed by: [email or web address], User Resident: DOMINGO NELSON Electronically Signed by: ELIUD MCGUIRE @ 04/17/2020 02:34 AM I personally read this/these film(s) with this resident Normal [facility] Comment on above: Order Comment: Hemat alyssa, s/p cardiac cath, now hypotensive, r/o retroperitoneal bleed. Cardiovascular Lab Reporton 04-17-2020 Cardiovascular Lab Report [facility] Patient Name: Mike Osei [facility] MR #: [id number] Physician: Aron Mac M.D. Medicine Service Date: 04/16/2020 Division of Birthdate: 1950 Cardiology Room #: [id number] Adult Cardiovascular Services [address] [place] [address] Cardiovascular Laboratory Report INDICATION: Mike Osei is [...] signed informed consent. He was brought to research lab assistant in a fasting state. The left groin area was prepped and draped in usual fashion. Using micropuncture technique and ultrasound guidance, the left common femoral artery was accessed. The inner cannula was advanced, limited femoral angiography was performed followed by upsizing to a 5-Namibian x 11 cm sheath. Left lower extremity angiography was performed down to the level of the foot. A 5-Namibian UniFlush catheter was advanced and placed in [...] the catheter and access sheath to a 6-Namibian Renaldo sheath. Using an angled Glidewire mounted [...] retracted and removed and exchanged to a 6-Namibian x 11 cm sheath. The patient tolerated [...] Anderson M.D. Date Trans: 04/17/2020 06:23 A/noreen [id number] Normal [facility] LACTATE BLOODon 04-17-2020 Lactate [Moles/Vol] 0.9 mmol/L Normal 0.5-2.2 [facility] Comment on above: Order Comment: No: D o not add to previous draw Performed By: #### 6 2586 #### [facility] [address] PERFUSION BLOOD PANELon 03-25 BASE EXCESS 0.0 mmol/L Normal -2.0-3.0 [facility] Comment on above: Performed By: #### 3 0738 #### [facility] [address] [place] [address], [place] Glucose [Mass/Vol] 118 mg/dL High 70-105 [facility] Comment on above: Performed By: #### 3 0738 #### [facility] [address] [place] [address], [place] Hematocrit (Bld) [Volume fraction] 36 % Low 38-51 [facility] Comment on above: Performed By: #### 3 0738 #### [facility] [address] [place] [address], [place] Hemoglobin (Bld) [Mass/Vol] 12.2 g/dL Normal 12.0-17.0 [facility] Comment on above: Performed By: #### 3 0738 #### [facility] [address] [place] [address], [place] IONIZED CALCIUM 1.23 mmol/L Normal 1.12-1.32 [facility] Comment on above: Performed By: #### 3 0738 #### [facility] [address] [place] [address], [place] Oxygen (Bld) [Partial pressure] 31.0 mm[Hg] Normal [facility] Comment on above: Performed By: #### 3 0738 #### [facility] [address] [place] [address], [place] PCO2 42.2 mmHg Normal 41.0-51.0 [facility] Comment on above: Performed By: #### 3 0738 #### [facility] [address] [place] [address], [place] pH (Bld) 7.38 [pH] Normal 7.31-7.41 [facility] Comment on above: Performed By: #### 3 0738 #### [facility] [address] [place] [address], [place] Potassium [Moles/Vol] 3.9 mmol/L Normal 3.5-4.9 [facility] Comment on above: Performed By: #### 3 0738 #### [facility] [address] [facility]. [address] Sodium [Moles/Vol] 132 mmol/L Low 138-146 [facility] Comment on above: Performed By: #### 3 0738 #### [facility] [address] [facility]. [address] POC GLUCOSE LABon 04-17-2020 Glucose [Mass/Vol] 126 mg/dL High 70-100 [facility] Comment on above: Performed By: #### 8 5499 #### [facility] [address] [facility]. [address] PROTHROMBIN TIMEon 0 INR Coag (PPP) [Relative time] 1.02 {INR} Normal 0.91-1.16 [facility] Comment on above: Order Comment: This order is a replacement of the rejected order with accession [id number] PATIENT NOT IN ROOM; WENT TO CT. [...] RANGE. CHEST 1995;108:231S-246S. Performed By: #### 6 0241 #### [facility] [address] [place] [address], [facility] PT Coag (PPP) [Time] 13.4 s Normal 12.3-14.8 [facility] Comment on above: Order Comment: This order is a replacement of the rejected order with accession [id number]- PATIENT NOT IN ROOM; WENT TO CT. Result Comment: ALL RESULTS MUST BE INTERPRETED WITH RESPECT TO BLOOD DRAWING ARTIFACT OR DILUTION ERROR OF ANTICOAGULANT AT THE TIME OF SAMPLING. Performed By: #### 6 6 #### [facility] [address] [place] [address], [facility] TROPONIN-Ion 04-17-2020 Troponin I.cardiac [Mass/Vol] 0.01 ng/mL Normal 0.00-0.04 [facility] Comment on above: Order Comment: No: D o not add to previous draw Result Comment: REFE RENCE RANGES: 0.00 - 0.04 ng/ml NORMAL 0.05 - 0.50 ng/ml INDETERMINATE > 0.50 ng/ml CONSISTENT WITH AN M.I. Performed By: #### 6 2585 #### [facility] [address] [facility] [place] [address], [facility] TYPE AND SCREENon 04-17-2020 ABO INTERPRETATION A Normal [facility] Comment on above: Performed By: #### 0 2024 #### [facility] [address] [place] [address], [facility] RH INTERPRETATION Positive Normal [facility] Comment on above: Performed By: #### 0 2024 #### [facility] [address] [place] [address], [facility] C REACTIVE PROTEINon 020 CRP [Mass/Vol] 13.5 mg/L High 0.0-7.0 [facility] Comment on above: Performed By: #### 0 2024 #### [facility] [address] [place] [address], [facility] CBC W/DIFFon 12-12-2019 ABS BASOPHILS 0.1 10*3/uL Normal 0.0-0.2 [facility] Comment on above: Performed By: #### 5 0103, [id number] #### [facility] 3000 [facility]. [address] ABS IMM GRANS 0.1 10*3/uL Normal 0.0-0.2 [facility] Comment on above: Performed By: #### 5 010, 73116 #### [facility] [address] ABS NEUTROPHILS 4.3 10*3/uL Normal 1.6-7.6 [facility] Comment on above: Performed By: #### 5 010, 51567 #### [facility] [address] Basophils/100 WBC (Bld) 0.8 % Normal 0.0-1.0 [facility] Comment on above: Performed By: #### 5 010, 39551 #### [facility] [address] Eosinophils (Bld) [#/Vol] 0.3 10*3/uL Normal 0.0-0.5 [facility] Comment on above: Performed By: #### 5 102, 52650 #### [facility] [address] [facility]. [address] Eosinophils/100 WBC (Bld) 4.6 % Normal 0.0-6.0 [facility] Comment on above: Performed By: #### 5 010, 88524 #### [facility] [address] Erythrocyte distribution width (RBC) [Ratio] 14.0 % Normal 11.5-15.0 [facility] Comment on above: Performed By: #### 5 102, 74561 #### [facility] [address] Hematocrit (Bld) [Volume fraction] 36.9 % Low 39.0-50.0 [facility] Comment on above: Performed By: #### 5 102, 15003 #### [facility] [address] Hemoglobin (Bld) [Mass/Vol] 12.2 g/dL Low 13.0-17.0 [facility] Comment on above: Performed By: #### 5 102, 88039 #### [facility] [address] [facility]. [address] IMMATURE GRANS 0.9 % Normal 0.0-1.0 [facility] Comment on above: Performed By: #### 102, 72646 #### [facility] [address] [facility]. [address] Lymphocytes (Bld) [#/Vol] 1.0 10*3/uL Low 1.2-4.0 [facility] Comment on above: Performed By: #### 102, 89415 #### [facility] [address] [facility]. [address] Lymphocytes/100 WBC (Bld) 15.5 % Low 20.0-45.0 [facility] Comment on above: Performed By: #### 5 102, 10396 #### [facility] [address] [facility]. [address] MCH (RBC) [Entitic mass] 30.9 pg Normal 27.0-33.0 [facility] Comment on above: Performed By: #### 5 102, 12355 #### [facility] [address] [facility]. [address] MCHC (RBC) [Mass/Vol] 33.1 g/dL Normal 32.0-35.0 [facility] Comment on above: Performed By: #### 102, 86232 #### [facility] [address] [facility] [place] [address], [facility] MCV (RBC) [Entitic vol] 93.4 fL Normal 82.0-98.0 T [facility] Comment on above: Performed By: #### 5 102, 64628 #### [facility] [address] [facility] [place] [address], [facility] Monocytes (Bld) [#/Vol] 0.7 10*3/uL Normal 0.1-1.0 [facility] Comment on above: Performed By: #### 5 102, 40671 #### [facility] [address] [facility]. [address] MONOS 10.3 % Normal 5.0-12.0 [facility] Comment on above: Performed By: #### 5 102, 18963 #### [facility] [address] Neutrophils/100 WBC (Bld) 67.9 % Normal 40.0-72.0 [facility] Comment on above: Performed By: #### 5 102, 54986 #### [facility] [address] Nucleated RBC/100 WBC (Bld) [Ratio] 0 % Normal 0-0 [facility] Comment on above: Performed By: #### 5 102, 09930 #### [facility] [address] [facility] [place] [address], [facility] PLAT CNT 215 10*3/uL Normal 150-400 [facility] Comment on above: Performed By: #### 5 102, 21055 #### [facility] [address] [facility] [place] [address], [facility] RBC (Bld) [#/Vol] 3.95 10*6/uL Low 4.20-5.70 [facility] Comment on above: Performed By: #### 5 102, 34235 #### [facility] [address] WBC (Bld) [#/Vol] 6.33 10*3/uL Normal 4.00-10.60 [facility] Comment on above: Performed By: #### 5 0103, 15970 #### [facility] [address] SEDIMENTATION RATEon 020 SED RATE 30 mm/hr High 0-10 [facility] Comment on above: Performed By: #### 0 2024 #### [facility] [address] Operative Reporton 0 Operative Report MR#: [id number] [facility] Pt. Name: Mike Osei Room #: [...] edges using a scalpel followed by a Williams and curette. We debrided down to the [...] Waddell MD Date Trans: 11/26/2019 11:48 P/noreen [id number] Normal [facility] APTTon 11-26-2019 aPTT Coag (Bld) [Time] 29.8 s Normal 25.0-35.0 [facility] Comment on above: Result Comment: ALL [...] PURPOSE. Performed By: #### 0 2024 #### [facility] [address] POC GLUCOSE LABon 11-26-2019 Glucose [Mass/Vol] 100 mg/dL Normal 70-100 [facility] Comment on above: Performed By: #### 8 6002 #### [facility] [address] [facility]. [address] PROTHROMBIN TIMEon 0 INR Coag (PPP) [Relative time] 0.99 {INR} Normal 0.91-1.16 [facility] Comment on above: Result Comment: ACCC [...] 1995;[id number]. Performed By: #### 0 2024 #### [facility] [address] [place] [address], [facility] PT Coag (PPP) [Time] 13.1 s Normal 12.3-14.8 [facility] Comment on above: Result Comment: ALL RESULTS MUST BE INTERPRETED WITH RESPECT TO BLOOD DRAWING ARTIFACT OR DILUTION ERROR OF ANTICOAGULANT AT THE TIME OF SAMPLING. Performed By: #### 0 2024 #### [facility] [address] [place] [address], [facility] VANCOMYCIN TROUGHon 11-12-19 VANCOMYCIN TROU 9.0 mcg/mL Normal 5.0-20.0 [facility] Comment on above: Performed By: #### 0 2024 #### [facility] [address] [facility] [place] [address], [facility] BASIC METABOLIC PANELon 10-24 Calcium [Mass/Vol] 9.1 mg/dL Normal 8.6-10.3 [facility] Comment on above: Order Comment: Yes: Add to Previous draw if able Performed By: #### 0 2024 #### [facility] [address] [facility] [place] [address], [facility] Chloride [Moles/Vol] 100 mmol/L Normal 98-107 [facility] Comment on above: Order Comment: Yes: Add to Previous draw if able Performed By: #### 0 2024 #### [facility] [address] [facility] [place] [address], [facility] CO2 [Moles/Vol] 26 mmol/L Normal 21-31 [facility] Comment on above: Order Comment: Yes: Add to Previous draw if able Performed By: #### 0 2024 #### [facility] [address] [facility] [place] [address], [facility] Creatinine [Mass/Vol] 1.22 mg/dL Normal 0.70-1.30 [facility] Comment on above: Order Comment: Yes: Add to Previous draw if able Performed By: #### 0 2024 #### [facility] [address] [place] [address], [place] GFR/1.73 sq M predicted among blacks MDRD (S/P/Bld) [Vol rate/Area] mL/min/{1.73_m2} Normal >60 [facility] Comment on above: Order Comment: Yes: Add to Previous draw if able Result Comment: Calc ulation may not be valid for patients over 70 years Performed By: #### 0 2024 #### [facility] [address] [place] [address], [place] GFR/1.73 sq M predicted among non-blacks MDRD (S/P/Bld) [Vol rate/Area] 59 ml/min/1.73sq m Abnormal >60 [facility] Comment on above: Order Comment: Yes: Add to Previous draw if able Result Comment: Calc ulation may not be valid for patients over 70 years Performed By: #### 0 2024 #### [facility] [address] [place] [address], [place] Glucose [Mass/Vol] 97 mg/dL Normal 70-100 [facility] Comment on above: Order Comment: Yes: Add to Previous draw if able Performed By: #### 0 2024 #### [facility] [address] [place] [address], [place] Potassium [Moles/Vol] 4.0 mmol/L Normal 3.5-5.1 [facility] Comment on above: Order Comment: Yes: Add to Previous draw if able Performed By: #### 0 2024 #### [facility] [address] [place] [address], [place] Sodium [Moles/Vol] 132 mmol/L Low 136-145 [facility] Comment on above: Order Comment: Yes: Add to Previous draw if able Performed By: #### 0 2024 #### [facility] [address] [place] [address], [place] Urea nitrogen [Mass/Vol] 17 mg/dL Normal 7-25 [facility] Comment on above: Order Comment: Yes: Add to Previous draw if able Performed By: #### 0 2024 #### [facility] [address] [place] [address], [facility] CBC COMPLETE BLOOD COUNTon - Erythrocyte distribution width (RBC) [Ratio] 14.2 % Normal 11.5-15.0 [facility] Comment on above: Order Comment: Yes: Add to Previous draw if able Performed By: #### 6 6 #### [facility] [address] [place] [address], [facility] Hematocrit (Bld) [Volume fraction] 32.5 % Low 39.0-50.0 [facility] Comment on above: Order Comment: Yes: Add to Previous draw if able Performed By: #### 6 6 #### [facility] [address] Hemoglobin (Bld) [Mass/Vol] 10.4 g/dL Low 13.0-17.0 [facility] Comment on above: Order Comment: Yes: Add to Previous draw if able Performed By: #### 6 2586 #### [facility] [address] [facility] [address], [facility] MCH (RBC) [Entitic mass] 31.7 pg Normal 27.0-33.0 [facility] Comment on above: Order Comment: Yes: Add to Previous draw if able Performed By: #### 6 2586 #### [facility] [address] [place] [address], [facility] MCHC (RBC) [Mass/Vol] 32.0 g/dL Normal 32.0-35.0 [facility] Comment on above: Order Comment: Yes: Add to Previous draw if able Performed By: #### 6 2586 #### [facility] [address] [place] [address], [facility] MCV (RBC) [Entitic vol] 99.1 fL High 82.0-98.0 T [facility] Comment on above: Order Comment: Yes: Add to Previous draw if able Performed By: #### 6 2586 #### [facility] [address] [place] [address], [facility] Nucleated RBC/100 WBC (Bld) [Ratio] 0 % Normal 0-0 [facility] Comment on above: Order Comment: Yes: Add to Previous draw if able Performed By: #### 6 2586 #### [facility] [address] [place] [address], [facility] PLAT CNT 231 10*3/uL Normal 150-400 [facility] Comment on above: Order Comment: Yes: Add to Previous draw if able Performed By: #### 6 2586 #### [facility] [address] [place] [address], [facility] RBC (Bld) [#/Vol] 3.28 10*6/uL Low 4.20-5.70 [facility] Comment on above: Order Comment: Yes: Add to Previous draw if able Performed By: #### 6 2586 #### [facility] [address] [facility] [place] [place] [address], [facility] WBC (Bld) [#/Vol] 8.34 10*3/uL Normal 4.00-10.60 [facility] Comment on above: Order Comment: Yes: Add to Previous draw if able Performed By: #### 6 2586 #### [facility] [address] [facility]. [address] Operative Reporton 0 Operative Report MR#: [id number] I [facility] Pt. Name: Mike Osei Room #: [id number] Discharge Date: Birthdate: 1950 OPERATIVE REPORT DATE OF SURGERY: 11/10/2019 SURGEON: Donald Collier M.D. LOT ASSOCIATE: Jose Charles MD PREOPERATIVE DIAGNOSIS: Right knee [...] Soto/Jose Charles MD Date Trans: 11/11/2019 09:49 Soto/noreen [id number] cc: Donald Collier M.D. [address] [facility] [place] [address] Normal [facility] *ANAEROBIC CULTUREon 020 *ANAEROBIC CULTURE Clinical Report: (D) Specimen/Source: TISSUE/INTRAOP SPEC Collected: 11/10/2019 08:50 Status: Final Last Updated: 11/15/2019 07:46 (1) #3 R. KNEE SYNOVIUM #2 CULT RES (Final) No Anaerobes Isolated 5 Days Normal [facility] Comment on above: Order Comment: #3 R. KNEE SYNOVIUM #2 Performed By: #### 8 6002 #### [facility] [address] *ANAEROBIC CULTURE Clinical Report: (D) Specimen/Source: TISSUE/INTRAOP SPEC Collected: 11/10/2019 08:44 Status: Final Last Updated: 11/15/2019 07:46 (1) #2 R. KNEE SYNOVIUM #1 CULT RES (Final) No Anaerobes Isolated 5 Days Normal [facility] Comment on above: Order Comment: #2 R. KNEE SYNOVIUM #1 Performed By: #### 3 0312 #### [facility] [address] [place] [address], [facility] *ANAEROBIC CULTURE Clinical Report: (D) Specimen/Source: SWAB/INTRAOP SPEC Collected: 11/10/2019 08:43 Status: Final Last Updated: 11/15/2019 07:46 (1) #1 R. KNEE SYNOVIAL FLUID ON SWAB CULT RES (Final) No Anaerobes Isolated 5 Days Normal [facility] Comment on above: Order Comment: #1 R. KNEE SYNOVIAL FLUID ON SWAB Performed By: #### 8 6002 #### [facility] [address] *BODY FLUID CULTUREon 2019 *BODY FLUID CULTURE Clinical Report: (D) Specimen/Source: FLUID/INTRAOP SPEC Collected: 11/10/2019 08:43 Status: Final Last Updated: 11/15/2019 10:58 (1) #1 R. KNEE SYNOVIAL FLUID ON SWAB GRAM (Final) Rare Polys No Bacteria Seen CULT RES (Final) No Growth Day 5 Normal [facility] Comment on above: Order Comment: #1 R. KNEE SYNOVIAL FLUID ON SWAB Performed By: #### 8 6002 #### [facility] [address] *TISSUE CULTUREon 11-10-2019 *TISSUE CULTURE Clinical Report: (D) Specimen/Source: TISSUE/INTRAOP SPEC Collected: 11/10/2019 08:50 Status: Final Last Updated: 11/15/2019 10:59 (1) #3 R. KNEE SYNOVIUM #2 GRAM (Final) Rare Polys No Bacteria Seen CULT RES (Final) No Growth Day 5 Normal [facility] Comment on above: Order Comment: #3 R. KNEE SYNOVIUM #2 Performed By: #### 8 6002 #### [facility] [address] *TISSUE CULTURE Clinical Report: (D) Specimen/Source: TISSUE/INTRAOP SPEC Collected: 11/10/2019 08:44 Status: Final Last Updated: 11/15/2019 10:58 (1) #2 R. KNEE SYNOVIUM #1 GRAM (Final) Rare Polys No Bacteria Seen CULT RES (Final) No Growth Day 5 Normal [facility] Comment on above: Order Comment: #2 R. KNEE SYNOVIUM #1 Performed By: #### 8 6002 #### [facility] [address] POC GLUCOSE LABon 11-10-2019 Glucose [Mass/Vol] 100 mg/dL Normal 70-100 [facility] Comment on above: Performed By: #### 8 6002 #### [facility] 3000 [place] [id number], [place] TYPE AND SCREENon 11-10-2019 ABO INTERPRETATION A Normal [facility] Comment on above: Performed By: #### 6 2586 #### [facility] [address] [facility]. [address] RH INTERPRETATION Positive Normal [facility] Comment on above: Performed By: #### 6 2586 #### [facility] [address] [facility]. [address] *MRSA/MSSA DNA NASALon 11-09 *MRSA/MSSA DNA NASAL Clinical Report: (D ) Specimen: NASAL SWAB Collected: 11/09/2019 19:00 Status: Final Last Updated: 11/10/2019 13:15 MSSA DNA (Final) Negative MRSA DNA (Final) Methicillin Resistant Staphylococcus aureus DNA Detected Normal [facility] Comment on above: Performed By: #### 8 [id number] #### [facility] [address] [facility]. [address] APTTon 11-09-2019 aPTT Coag (Bld) [Time] 29.3 s Normal 25.0-35.0 Th e [facility] Comment on above: Result Comment: ALL [...] PURPOSE. Performed By: #### 6 2586 #### [facility] [address] [facility]. [address] BASIC METABOLIC PANELon 10-24 Calcium [Mass/Vol] 9.0 mg/dL Normal 8.6-10.3 [facility] Comment on above: Performed By: #### 0 0071 #### [facility] [address] [facility]. [address] Chloride [Moles/Vol] 94 mmol/L Low 98-107 [facility] Comment on above: Performed By: #### 0 0071 #### [facility] [address] [place] [address], [place] CO2 [Moles/Vol] 26 mmol/L Normal 21-31 [facility] Comment on above: Performed By: #### 0 0071 #### [facility] [address] [place] [address], [place] Creatinine [Mass/Vol] 1.40 mg/dL High 0.70-1.30 [facility] Comment on above: Performed By: #### 0 0071 #### [facility] [address] [place] [address], [place] GFR/1.73 sq M predicted among blacks MDRD (S/P/Bld) [Vol rate/Area] 60 ml/min/1.73sq m Abnormal >60 [facility] Comment on above: Result Comment: Calc ulation may not be valid for patients over 70 years Performed By: #### 0 0071 #### [facility] [address] [place] [address], [place] GFR/1.73 sq M predicted among non-blacks MDRD (S/P/Bld) [Vol rate/Area] 50 ml/min/1.73sq m Abnormal >60 [facility] Comment on above: Result Comment: Calc ulation may not be valid for patients over 70 years Performed By: #### 0 0071 #### [facility] [address] [place] [address], [place] Glucose [Mass/Vol] 106 mg/dL High 70-100 [facility] Comment on above: Performed By: #### 0 0071 #### [facility] [address] [place] [address], [place] Potassium [Moles/Vol] 3.9 mmol/L Normal 3.5-5.1 [facility] Comment on above: Performed By: #### 0 0071 #### [facility] [address] Sodium [Moles/Vol] 128 mmol/L Low 136-145 [facility] Comment on above: Performed By: #### 0 0071 #### [facility] [address] Urea nitrogen [Mass/Vol] 18 mg/dL Normal 7-25 [facility] Comment on above: Performed By: #### 0 1 #### [facility] [address] CBC W/DIFFon 11-09-2019 ABS BASOPHILS 0.0 10*3/uL Normal 0.0-0.2 [facility] Comment on above: Performed By: #### 6 2586 #### [facility] [address] ABS IMM GRANS 0.1 10*3/uL Normal 0.0-0.2 [facility] Comment on above: Performed By: #### 6 2586 #### [facility] [address] ABS NEUTROPHILS 4.9 10*3/uL Normal 1.6-7.6 [facility] Comment on above: Performed By: #### 6 2586 #### [facility] [address] Basophils/100 WBC (Bld) 0.3 % Normal 0.0-1.0 T he [facility] Comment on above: Performed By: #### 6 2586 #### [facility] [address] [place] [address], [facility] Eosinophils (Bld) [#/Vol] 0.1 10*3/uL Normal 0.0-0.5 [facility] Comment on above: Performed By: #### 6 2586 #### [facility] 3000 [place] [id number], [facility] Eosinophils/100 WBC (Bld) 0.8 % Normal 0.0-6.0 [facility] Comment on above: Performed By: #### 6 2586 #### [facility] [address] [facility] [address] Erythrocyte distribution width (RBC) [Ratio] 14.0 % Normal 11.5-15.0 [facility] Comment on above: Performed By: #### 6 2586 #### [facility] [address] [facility] [place] [address], [facility] Hematocrit (Bld) [Volume fraction] 35.1 % Low 39.0-50.0 [facility] Comment on above: Performed By: #### 6 2586 #### [facility] [address] Hemoglobin (Bld) [Mass/Vol] 11.6 g/dL Low 13.0-17.0 [facility] Comment on above: Performed By: #### 6 2586 #### [facility] [address] IMMATURE GRANS 0.9 % Normal 0.0-1.0 [facility] Comment on above: Performed By: #### 6 2586 #### [facility] [address] [facility]. [address] Lymphocytes (Bld) [#/Vol] 0.7 10*3/uL Low 1.2-4.0 [facility] Comment on above: Performed By: #### 6 2586 #### [facility] [address] [place] [address], [facility] Lymphocytes/100 WBC (Bld) 11.2 % Low 20.0-45.0 [facility] Comment on above: Performed By: #### 6 2586 #### [facility] [address] [facility] [place] [address], [facility] MCH (RBC) [Entitic mass] 31.4 pg Normal 27.0-33.0 [facility] Comment on above: Performed By: #### 6 2586 #### [facility] [address] [facility] [address] MCHC (RBC) [Mass/Vol] 33.0 g/dL Normal 32.0-35.0 [facility] Comment on above: Performed By: #### 6 2586 #### [facility] [address] [facility] [place] [place] [address], [facility] MCV (RBC) [Entitic vol] 95.1 fL Normal 82.0-98.0 T esau [facility] Comment on above: Performed By: #### 6 2586 #### [facility] [address] [facility] [place] [address], [facility] Monocytes (Bld) [#/Vol] 0.8 10*3/uL Normal 0.1-1.0 [facility] Comment on above: Performed By: #### 6 2586 #### [facility] [address] [facility]. [address] MONOS 12.4 % High 5.0-12.0 [facility] Comment on above: Performed By: #### 6 2586 #### [facility] [address] [facility] [address] Neutrophils/100 WBC (Bld) 74.4 % High 40.0-72.0 [facility] Comment on above: Performed By: #### 6 2586 #### [facility] [address] [facility] [place] [address], [facility] Nucleated RBC/100 WBC (Bld) [Ratio] 0 % Normal 0-0 [facility] Comment on above: Performed By: #### 6 2586 #### [facility] [address] [place] [address], [facility] PLAT CNT 233 10*3/uL Normal 150-400 [facility] Comment on above: Performed By: #### 6 2586 #### [address] [place] [address], [facility] RBC (Bld) [#/Vol] 3.69 10*6/uL Low 4.20-5.70 [facility] Comment on above: Performed By: #### 6 2586 #### [facility] [address] [facility] [place] [address], [facility] WBC (Bld) [#/Vol] 6.54 10*3/uL Normal 4.00-10.60 [facility] Comment on above: Performed By: #### 6 [id number] #### [facility] [address] [place] [address], [facility] KNEE RIGHT 3 VWSon 0 KNEE RIGHT 3 S [facility] Department of Radiology [address] [place] [id number] Patient Name: MIKE OSEI : 1950 [...] reports Electronically signed: Galen Kruse. Transcribed by: [email or web address], User Resident: TONYA COPE Electronically Signed by: GALEN KRUSE @ 11/10/2019 09:54 AM I personally read this/these film(s) with this resident Normal [facility] Comment on above: Order Comment: , Vie ws (X-RAY, KNEE): Radiologic Protocol , Weight Bearing?: Y , Views (X-RAY, KNEE): Radiologic Protocol , Weight Bearing?: Y , , , Ordering Provider - DONALD COLLIER MD , PROTHROMBIN TIMEon 0 INR Coag (PPP) [Relative time] 0.99 {INR} Normal 0.91-1.16 [facility] Comment on above: Result Comment: ACCC [...] 1995;108:[id number]. Performed By: #### 6 [id number] #### [facility] [address] [facility]. [address] PT Coag (PPP) [Time] 13.1 s Normal 12.3-14.8 [facility] Comment on above: Result Comment: ALL RESULTS MUST BE INTERPRETED WITH RESPECT TO BLOOD DRAWING ARTIFACT OR DILUTION ERROR OF ANTICOAGULANT AT THE TIME OF SAMPLING. Performed By: #### 6 [id number] #### [facility] [address] [facility] [place] [address], [facility] RBC'S 2 UNITSon 11-09-2019 CROSSMATCH INTERP 1 COMP Normal [facility] Comment on above: Performed By: #### 8 [id number] #### [facility] [address] [place] [address], [place] CROSSMATCH INTERP 2 COMP Normal [facility] Comment on above: Performed By: #### 8 [id number] #### [facility] [address] [place] [address], [place] PRODUCT CODE 1 E0336 Normal [facility] Comment on above: Performed By: #### 8 [id number] #### [facility] [address] [place] [address], [place] PRODUCT CODE 2 E0336 Normal [facility] Comment on above: Performed By: #### 8 [id number] #### [facility] [address] [place] [address], [place] PRODUCT STATUS 1 RE Normal [facility] Comment on above: Result Comment: Resu lt changed by IF on 11/14/2019 06:36. The previous value was XM. Performed By: #### 8 [id number] #### [facility] [address] [place] [address], [place] PRODUCT STATUS 2 RE Normal [facility] Comment on above: Result Comment: Resu lt changed by IF on 11/14/2019 06:36. The previous value was XM. Performed By: #### 8 [id number] #### [facility] [address] [place] [address], [place] UNIT ABO 1 A Normal [facility] Comment on above: Performed By: #### 8 [id number] #### [facility] [address] [place] [address], [place] UNIT ABO 2 A Normal [facility] Comment on above: Performed By: #### 8 [id number] #### [facility] [address] [place] [address], [place] UNIT ID 1 [id number] Normal [facility] Comment on above: Performed By: #### 8 [id number] #### [facility] [address] [place], [place] [address] [[email or web address] UNIT ID 2 [id number] Normal [facility] Comment on above: Performed By: #### 8 [id number] #### [facility] [address] [place] [address], [facility] UNIT RH 1 Positive Normal [facility] Comment on above: Performed By: #### 8 [id number] #### [facility] [address] [place] [address], [facility] UNIT RH 2 Positive Normal [facility] Comment on above: Performed By: #### 8 [id number] #### [facility] [address] [facility] [place], [place] [id number] [place] [address] Vital Signs Date Time Vital Sign Value Performing Clinician Facility 05-24-2023 10:25-0400 Body height 176.53 cm Katiana Kemp Other [facility] Other 05-24-2023 10:25-0400 Body mass index (BMI) [Ratio] 31.2 kg/m2 Katiana Kemp Other [facility] Other 05-24-2023 10:25-0400 Body weight 97.25 kg Katiana Kemp Other [facility] Other 05-24-2023 10:25-0400 Diastolic blood pressure 65 mm[Hg] Katiana Kemp Other [facility] Other 05-24-2023 10:25-0400 Respiratory rate 18 /min Katiana Kemp Other [facility] Other 05-24-2023 10:25-0400 SaO2% (BldA) [Mass fraction] 100 % Katiana Kemp Other [facility] Other 05-24-2023 10:25-0400 Systolic blood pressure 142 mm[Hg] Katiana Kemp Other [facility] Other Encounters Encounter Date Encounter Type Care Provider Facility Start: 07-13-2024 End: 07-13-2024 ambulatory HOLLY HUGHES [facility] Start: 03-12-2024 End: 03-13-2024 Emergency department patient visit JOANNE GALLEGOS [facility] Start: 12-26-2023 End: 12-26[facility]: 05-24-2023 End: 05-24-2023 ambulatory Katiana Kemp Other [facility] Other Start: 05-24-2023 Office outpatient ne w 20 minutes Katiana Kemp [facility] Start: 2023 End: 01-28-2023 ambulatory NARAMI LAKSHMIPATHY Facility:[facility] Start: 01-13-2023 End: 01-14-[address] POOL GARCIA Facility:[facility] Start: 01-11-2023 End: 01-11-2023 ambulatory NARENDEMELY LAKSHMIPATHJackie Facility:[facility]1 Start: 12-07-2022 End: 12-08-[address] SCOTT CHAUHAN . Facility:[facility] Start: 11-02-2022 End: 11-03-[address] SCOTT CHAUHAN . Facility:[facility] Start: 10-26-2022 End: 10-27-[address] SCOTT CHAUHAN . Facility:[facility] Start: 10-26-2022 End: 10-27-[address] SCOTT CHAUHAN . Facility:[facility] Start: 07-27-2022 End: 07-28-[address] POOL GARCIA Facility:[facility] Start: 03-11-2022 End: 03-11-2022 ambulatory LEIGHA PEDRAZA . Facility:[facility] Start: 03-03-2022 Encounter for preprocedural cardiovascular examination LEIGHA [facility] Start: 03-03-2022 Encounter for preprocedural laboratory examination LEIGHA PEDRAZA . [facility] Start: 03-01-2022 End: 03-02-2022 ambulatory LEIGHA PEDRAZA . Facility: Start: 03-01-2022 End: 03-02-2022 Encounter for preprocedural cardiovascular examination LEIGHA PEDRAZA . Facility: Start: 02-24-2022 End: 02-25-[address] BRADY MORRIS Facility: Start: 08-21-2020 End: 08-22-2020 Patient encounter procedure PROVIDER UNKNOWN Facility:[facility] Start: 05-05-2020 End: 05-06-2020 Patient encounter procedure PROVIDER UNKNOWN Facility:[facility] Start: 04-16-2020 End: 04-17-2020 Patient encounter procedure PROVIDER UNKNOWN Facility:[facility] Start: 11-26-2019 End: 11-27-2019 Patient encounter procedure GA Facility:[facility] Start: 11-09-2019 End: 11-13-2019 Evaluation and management of inpatient GA Facility:[facility] Procedures Date Procedure Procedure Detail Performing Clinician Start: 07-27-[address] SCOTT CHAUHAN . Comment on above: Performed By: #### T SH, BMP #### [facility] [address] [address] [address] Marilin Rothman Start: 04-17-2020 Antibody screen Comment on above: Performed By: #### 0 5 #### [facility] [address] Start: 11-26-2019 Anes integ extremiti es ant trunk & perineum nos YA [place] Start: 11-26-2019 LATE CLOSURE OF WOUND N ABIL EBRAHEIM Start: 11-10-2019 EXCISION OF RIGHT KN EE JOINT, OPEN APPROACH DONALD EBRAHEIM Start: 11-10-2019 Antibody screen Comment on above: Performed By: #### 6 [id number] #### [facility] [address] Payers Date Payer Category Payer Unknown [id number] 1961 Medicare [id number] 1961 Medicare [id number] 1950 Unknown [id number] 2.16.8 [id number] 1950 Unknown [id number] 2.16.8 40.1.702474.3.579.2.647 1950 Unknown [id number] 2.16.8 40.1.819308.3.579.2.647 1950 Unknown [id number] 2.16.8 40.1.645964.3.579.2.647 1950 Unknown [id number] 2.16.8 40.1.626604.3.579.2.647 1950 Unknown [id number] 2.16.84 0.1.537079.3.579.2.593 1950 Unknown [id number] 2.16.84 0.1.436025.3.579.2.593 1950 Unknown [id number] 2.16.84 0.1.984176.3.579.2.593 1948 Unknown [id number] 2.16.84 0.1.106393.3.579.2.593 1948 Unknown [id number] 2.16.84 0.1.721590.3.579.2.593 1948 Unknown [id number] 2.16.84 0.1.322128.3.579.2.593 1948 Unknown [id number] 2.16.84 0.1.035779.3.579.2.593 1948 Unknown [id number] 2.16.84 0.1.301665.3.579.2.593 1948 Unknown [id number] 2.16.84 0.1.211791.3.579.2.593 1948 Unknown [id number] 2.16.84 0.1.299770.3.579.2.593 1948 Unknown [id number] 2.16.84 0.1.601256.3.579.2.593 1950 Unknown [id number] 2.16. 840.1.165043.3.579.2.175 Medicare [id number] Social History Date Type Detail Facility Sex Assigned At [facility] Other Clinical Notes 10-26-2022 to 07-13-2024 Note Date & Type Note Facility 07-13-2024 Note Reviewed ABIs with p atient and they are normal no concerns for significant arterial stenosis Continue Lipitor, and regular exercise [facility] 07-13-2024 Note Lipid abnormalities are unchanged. Follow-up with PCP for annual blood testing Continue atorvastatin 80 mg daily and reviewed his lipid profile is well-controlled and liver function was normal Pharmacotherapy as ordered. Lipids will be reassessed in 1 year. [facility] 07-13-2024 Note Hypertension is unch anged. Continue Norvasc, losartan and Toprol Continue current treatment regimen. Continue current medications. Blood pressure will be reassessed at the next regular appointment. [facility] 07-13-2024 Note Coronary artery dise ase is unchanged. Remained stable no concerning symptoms Continue Plavix, Toprol and Lipitor Currently cholesterol levels are well-controlled and liver functions normal Continue current treatment regimen. Regular aerobic exercise. Continue current medications. Cardiac status will be reassessed in 1 year. [facility] 07-13-2024 Note Pt here for six cecelia h follow up. Pt denies chest pain, sob, palpatations. Review of Systems HENT: Positive for tinnitus. Cardiovascular: Positive for dyspnea on exertion. Musculoskeletal: Positive for arthritis, back pain, joint pain and myalgias. All other systems reviewed and are negative. [facility] 07-13-2024 Note [facility] CARDIOLOGY PROGR ESS NOTE HPI: Mike Osei is a 74 y.o. male here for routine F/U HPI 74 year old male patient being seen for 1 year follow up PVD, CAD, hypertension, and hyperlipidemia. Overall patient states he is doing very well, remains fairly active without any limiting symptoms. Denies any bleeding tendencies or any concerns. Denies any recent hospitalizations. Currently denies leg pain or claudication symptoms. Review of Systems HENT: Positive for tinnitus. Cardiovascular: Denies chest pain, shortness of breath, orthopnea or leg swelling Musculoskeletal: Positive for arthritis, back pain, joint pain and myalgias. All other systems reviewed and are negative Previous HPI per Dr Anderson 12/2023 HPI Mike is seen in follow-up on CAD, PAD and hypertension and hyperlipidemia. He is a 73-year-old man with history of coronary artery disease that is mild to moderate by cardiac catheterization in 2018 for which she has been maintained on medical therapy. At that time he was having symptoms of shortness of breath on exertion and an abnormal stress test. He has history of peripheral vascular disease. His angiogram in 2019 after failed medical therapy showed occluded right SFA. He underwent an initial failed attempt at antegrade recanalization. This was successfully performed in July 2020 with drug-coated balloon treatment as well as placement of a stent. Today he is seen in follow-up. He reports that he has been doing reasonably well with no chest pain. He has shortness of breath on exertion that has been going on for a while but this is compounded by the fact that he has been having upper respiratory tract infection symptoms. He has no leg swelling. No claudication. He has good exercise tolerance. His blood pressure is elevated. Visit Vitals BP 135/74 (BP Location: Left arm, Patient Position: Sitting) Pulse 61 Ht 1.778 m (5' 10 ) Wt 96.2 kg (212 lb) SpO2 93% BMI 30.42 kg/m??? Smoking Status Former BSA 2.18 m??? Allergies Allergen Reactions Penicillins Anaphylaxis, Angioedema, Hives, Itching and Rash Morphine Nausea And Vomiting Medications: Current Outpatient Medications on File Prior to Visit Medication Sig Dispense Refill amLODIPine (Norvasc) 10 mg tablet Take 1 tablet (10 mg) by mouth in the morning. 90 tablet 3 atorvastatin (Lipitor) 80 mg tablet Take 1 tablet (80 mg) by mouth in the morning. 90 tablet 3 clopidogrel (Plavix) 75 mg tablet TAKE 1 TABLET (75 MG) BY MOUTH IN THE MORNING 90 tablet 3 hydroCHLOROthiazide (HYDRODiuril) 25 mg tablet Take 25 mg by mouth in the morning. losartan (Cozaar) 100 mg tablet Take 100 mg by mouth in the morning. metoprolol succinate XL (Toprol-XL) 50 mg 24 hr tablet TAKE 1 TABLET BY MOUTH EVERY DAY IN THE MORNING 90 tablet 3 zphqufvywqz-rjkmdaqrm-gvriuqyc 100-62.5-25 mcg blister with device Inhale 1 puff in the morning. No current facility-administered medications on file prior to visit. Physical Exam: Constitutional: Appearance: Normal appearance. Without apparent distress HENT: Head: Normocephalic and atraumatic. Nose: Nose normal. Mouth/Throat: Mouth: Mucous membranes are moist. Eyes: Extraocular Movements: Extraocular movements intact. Conjunctiva/sclera: Conjunctivae normal. Neck: Vascular: No JVD. Cardiovascular: Rate and Rhythm: Normal rate and regular rhythm. Pulses: Dorsalis pedis pulses are 3 on the right side and 3on the left side. Posterior tibial pulses are 3 on the right side and 3 on the left side. Heart sounds: Normal heart sounds, S1 normal and S2 normal. Pulmonary: Effort: Pulmonary effort is normal. Breath sounds: Normal breath sounds. Abdominal: General: Bowel sounds are normal. Palpations: Abdomen is soft. Musculoskeletal: General: Normal range of motion. Cervical back: Normal range of motion. Right lower leg: No edema. Left lower leg: No edema. Skin: General: Skin is warm and dry. Capillary Refill: Capillary refill takes less than 2 seconds. Neurological: General: No focal deficit present. Mental Status: he is alert and oriented to person, place, and time. Psychiatric: Mood and Affect: Mood normal. Behavior: Behavior normal. Thought Content: Thought content normal. Judgment: Judgment normal. Labs: 12/26/23 Chol 142, Trig 79, HDL 64, LDL 63- well controlled Blood testing 06/17/2023: Hemoglobin 12.8, platelets 215, potassium 4.7, BUN 18, creatinine 1.53, EGFR 54, LFTs normal. Labs 07/27/2022 Hgb 12.5, plt 260 Cr. 1.1, BUN 14, K 4.6, Na+ 131, ALT 26, AST 17 Chol 155, HDL 76, trig 121, LDL 54 TSH: 1.933 Labs- 09/02/21 Chol 146, Trig 136, HDl 52, LDL 67- much improved Previous was Chol 221, Trig 144, HDl 56, LDL 136.2 10/27/2020 BNP normal renal function normal Blood testing 09/08/2020: Potassium 4.2, BUN 14, creatinine 1.14. Cholesterol 221, HDL 56, triglycerides 144, LDL 136. His LDL in October 2018 was 122. Imaging a (more content not included)... [facility] 12-26-2023 Note [place] [facility] Subjective Mike Osei is a 73 y.o. year old male patient being seen for 1 year follow up PVD, CAD, hypertension, and hyperlipidemia. Patient Active Problem List Diagnosis Bilateral hearing loss Coronary arteriosclerosis Deviated septum Dysfunction of both eustachian tubes History of surgical procedure Knee pyogenic arthritis (CMS/HCC) Hypertensive disorder Peripheral vascular disease (CMS/HCC) Mixed hyperlipidemia Family History Problem Relation Name Age of Onset Cancer Mother Cancer Brother Diabetes Paternal Grandmother Social History Tobacco Use Smoking status: Former Types: Cigarettes Smokeless tobacco: Never Substance Use Topics Alcohol use: Yes Comment: moderate HPI Mike is seen in follow-up on CAD, PAD and hypertension and hyperlipidemia. He is a 73-year-old man with history of coronary artery disease that is mild to moderate by cardiac catheterization in 2018 for which she has been maintained on medical therapy. At that time he was having symptoms of shortness of breath on exertion and an abnormal stress test. He has history of peripheral vascular disease. His angiogram in 2019 after failed medical therapy showed occluded right SFA. He underwent an initial failed attempt at antegrade recanalization. This was successfully performed in July 2020 with drug-coated balloon treatment as well as placement of a stent. Today he is seen in follow-up. He reports that he has been doing reasonably well with no chest pain. He has shortness of breath on exertion that has been going on for a while but this is compounded by the fact that he has been having upper respiratory tract infection symptoms. He has no leg swelling. No claudication. He has good exercise tolerance. His blood pressure is elevated. Review of Systems HENT: Positive for tinnitus. Cardiovascular: Positive for dyspnea on exertion. Musculoskeletal: Positive for arthritis, back pain, joint pain and myalgias. All other systems reviewed and are negative. Objective Visit Vitals BP 140/73 (BP Location: Left arm, Patient Position: Sitting) Pulse 65 Ht 1.778 m (5' 10 ) Wt 93 kg (205 lb) SpO2 97% BMI 29.41 kg/m??? Smoking Status Former BSA 2.14 m??? Physical Exam Constitutional: Appearance: He is well-developed. He is not ill-appearing. HENT: Head: Normocephalic and atraumatic. Nose: Nose normal. Eyes: General: No scleral icterus. Pupils: Pupils are equal, round, and reactive to light. Neck: Thyroid: No thyromegaly. Vascular: No JVD. Cardiovascular: Rate and Rhythm: Normal rate and regular rhythm. Pulses: Radial pulses are 2+ on the right side and 2+ on the left side. Dorsalis pedis pulses are 2+ on the right side and 3+ on the left side. Heart sounds: Normal heart sounds. No murmur heard. No friction rub. No gallop. Pulmonary: Effort: Pulmonary effort is normal. No respiratory distress. Breath sounds: Normal breath sounds. No wheezing or rales. Chest: Chest wall: No tenderness. Abdominal: General: Bowel sounds are normal. There is no distension. Palpations: Abdomen is soft. Tenderness: There is no abdominal tenderness. Musculoskeletal: General: No swelling. Cervical back: Neck supple. Skin: General: Skin is warm and dry. Neurological: General: No focal deficit present. Mental Status: He is alert and oriented to person, place, and time. Psychiatric: Mood and Affect: Mood normal. Behavior: Behavior is cooperative. Judgment: Judgment normal. Allergies Allergies Allergen Reactions Penicillins Anaphylaxis, Angioedema, Hives, Itching and Rash Medications Current Outpatient Medications: atorvastatin (Lipitor) 80 mg tablet, Take 1 tablet (80 mg) by mouth in the morning., Disp: 90 tablet, Rfl: 3 clopidogrel (Plavix) 75 mg tablet, TAKE 1 TABLET (75 MG) BY MOUTH IN THE MORNING, Disp: 90 tablet, Rfl: 3 owhynerxkob-xcextvivb-woonusmi 100-62.5-25 mcg blister with device, Inhale 1 [...] the morning., Disp: 90 tablet, Rfl: 3 amLODIPine (Norvasc) 10 mg tablet, Take 1 tablet (10 mg) by mouth in the morning., Disp: 90 tablet, Rfl: 3 Recent Labs No visits with results within 6 Month(s) from this visit. Latest known visit with results is: [facility] Encounter on 05/05/2020 Component Date Value Ventricular Rate 05/05/2020 79 Atrial Rate 05/05/2020 79 GA Interval 05/05/2020 148 QRS DURATION 05/05/2020 84 QT Interval 05/05/2020 386 QTC CALCULATION(BEZET) 05/05/2020 442 P Troy 05/05/2020 51 R-Troy 05/05/2020 32 T Wave Troy 05/05/2020 42 Diagnosis 05/05/2020 Value:Normal sinus rhythm (more content not included)... [facility] 05-24-2023 Evaluation note Encounter Date Diagnosis Assessment [...] fever. Patient verbalized understanding of treatment plan. [facility] Other 04-06-2023 NoteCONSULTATION CONSULTATION DATE: 2023 TO: Pool Garcia M.D. [...] our patients to inform us about any ewtt-gky-wqngvco medications or herbal remedies/nutritional supplements/alternative remedies. 2. [...] and treatment options with their primary care provider.[id number] Note CONSULTATION CONSULTATION DATE: 12/07/2022 CHIEF COMPLAINT: [...] understand. Education was done. CC: Pool Garcia M.D.[id number] NoteCONSULTATION CONSULTATION DATE: 11/02/2022 PREOPERATIVE DIAGNOSIS: Left trochanteric [...] complication, will be followed up in the office.[facility] [id number] NoteCONSULTATION CONSULTATION DATE: 10/26/2022 CHIEF COMPLAINT: Low back [...] ordered by Dr. Garcia. CC: Pool Garcia M.D.[facility] general Narrative - Reported * Type Description Date Medical History HTN Medical History hyperlipidemia Medical History PAD Medical History SOB Surgical History right knee arthroscopy Surgical History cataract removal [facility] Other Summary Purpose Family History No Family History Records FoundNo Family History Records FoundNo Family History Records FoundNo Family History Records Found Advance Directives No Advanced Directives Records FoundNo Advanced Directives Records FoundNo Advanced Directives Records FoundNo Advanced Directives Records Found Hospital Course Note MR#: [id number] [facility] Pt. Name: Mike Osei Admitted: 11/09/2019 Discharged: [...] cocci. The patient was then transferred to [facility] for higher level of care. [...] Records FoundNo Status Records FoundNo Status Records FoundNo Status Records Found INFORMATION SOURCE (unrecogn ized section and content) DATE CREATED AUTHOR 09/21/[address] [facility] DATE CREATED AUTHOR AUTHOR'S ORGANIZ ATION 02/06/2023 [facility] DATE CREATED AUTHOR AUTHOR'S ORGANIZ ATION 03/17/2024 [facility] DATE CREATED AUTHOR AUTHOR'S ORGANIZ ATION 07/15/2024 [facility] REASON FOR VISIT (unrecogniz ed section and [...] BE BASED ON THE PRIMARY CLINICAL RECORDS. [employer] provides no warranty or guarantee of the accuracy or completeness of information in this document.
[2024-08-15 13:18] LABS: Basophils Absolute Auto 0.1 10^3/uL (0.0-0.1); Basophils Percent Auto 0.7 % (0.2-2.0); Eosinophils Absolute Auto 0.2 10^3/uL (0.0-0.7); Eosinophils Percent Auto 3.2 % (0.9-7.0); Hematocrit 35.1 % (42.0-54.0); Hemoglobin 11.9 g/dL (14.0-18.0); Immature Granulocytes Abs Auto 0.03 10^3/uL (0.00-0.03); Immature Granulocytes Pct Auto 0.4 % (0.0-0.5); Lymphocytes Absolute Auto 0.9 10^3/uL (1.2-3.8); Lymphocytes Percent Auto 13.3 % (20.5-60.0); Mean Corpuscular HGB Conc 33.9 g/dL (29.9-35.2); Mean Corpuscular Hemoglobin 33.1 pg (25.9-34.0); Mean Corpuscular Volume 97.8 fL (80.0-94.0); Mean Platelet Volume 9.2 fL (9.5-13.5); Monocytes Absolute Auto 0.8 10^3/uL (0.3-0.8); Monocytes Percent Auto 11.7 % (1.7-12.0); Neutrophils Absolute Auto 4.9 10^3/uL (1.4-6.5); Neutrophils Percent Auto 70.7 % (43.0-75.0); Platelet Count 242 10^3/uL (150-450); Red Blood Count 3.59 10^6/uL (4.70-6.10); Red Cell Distribution Width 12.9 % (11.0-15.0); White Blood Count 6.9 10^3/uL (4.0-11.0)
[2024-08-15 13:49] LABS: Alanine Aminotransferase 21 U/L (16-63); Albumin Globulin Ratio 0.9; Albumin Level 3.3 g/dL (3.4-5.0); Alkaline Phosphatase 82 U/L (46-116); Anion Gap 12.5; Aspartate Amino Transferase 21 U/L (15-37); BUN Creatinine Ratio 11.6; Bilirubin Direct 0.2 mg/dL (0.0-0.2); Bilirubin Total 0.9 mg/dL (0.2-1.0); Calcium 9.3 mg/dL (8.5-10.1); Carbon Dioxide 29.7 mmol/L (21.0-32.0); Chloride 102 mmol/L (98-107); Cholesterol 138 mg/dL (<=200); Estimated GFR (African America 47 (>=60 mL/min/1.73m^2); Estimated GFR (Non-African Ame 39 (>=60 mL/min/1.73m^2); Globulin 3.6 g/dL; Glucose 97 mg/dL (74-106); HDL Cholesterol 68 mg/dL (40-60); Potassium 4.2 mmol/L (3.5-5.1); Sodium 140 mmol/L (136-145); Thyroid Stimulating Hormone 2.904 uIU/mL (0.358-3.740); Total Protein 6.9 g/dL (6.4-8.2); Triglycerides 95 mg/dL (<=150)
== END 2024-08-15 12:33 | disposition home or self-care (01) ==
LOC: LAB 12:33
PROVIDERS: PCP Family Medicine; Visit Provider Family Medicine
DX: E78.5 Hyperlipidemia, unspecified (principal); I10 Essential (primary) hypertension; Z79.899 Other long term (current) drug therapy; Z12.5 Encounter for screening for malignant neoplasm of prostate; E66.811 Obesity, class 1; E66.09 Other obesity due to excess calories; Z68.30 Body mass index [BMI] 30.0-30.9, adult
CPT/HCPCS: 36415; 80048; 80061; 80076; 84443; 85025; G0103

== ENCOUNTER 2024-09-25 09:18 | Outpatient (OUT) | payer MEDICARE, SELFPAY ==
--- NOTE | 2024-09-25 | CT_ITS ---
[address] [address] Patient Name: HUY MARTINEZ MRN: [id number] date: 1950 Sex: M Assigned Patient Location: CT Current Patient Location: Accession/Order Number: [id number] Exam Date: 09/25/2024 09:21 Report Date: 09/26/2024 07:33 At the request of: LEIGHA PEDRAZA Procedure: CT lung screening low-dose EXAMINATION: CT lung screening low-dose HISTORY: Lung cancer screening COMPARISON: 09/19/2023 TECHNIQUE: Axial, Coronal, and Sagittal images were created without the administration of IV contrast material. Dose reduction techniques were achieved by using automated exposure control and/or adjustment of mA and/or kV according to patient size and/or use of iterative reconstruction technique. FINDINGS: LUNGS: Table scattered calcified and noncalcified pulmonary nodules the largest noncalcified pulmonary nodule is identified in the medial basilar segment of the right lower lobe measuring 6.3 mm, axial image 99. Linear opacity in the right lung base, atelectasis is favored PLEURA: No mass, effusion, or pneumothorax. VASCULATURE: No abnormality. WINDY: No mass or pathologic adenopathy. MEDIASTINUM: No mass or pathologic adenopathy. CARDIAC: No enlargement or pericardial effusion CORONARY ARTERIES: Coronary calcifications are moderate. AORTA: No aortic aneurysm. Moderate calcific atherosclerosis CHEST WALL: No mass or axillary adenopathy BONES: No bone lesion or fracture. LIMITED ABDOMEN: Cholelithiasis. OTHER: Negative. CT/CT lung screening low-dose IMPRESSION: Stable scattered subcentimeter pulmonary nodules LUNG SCREENING: Lung-RADS Category 2- Benign Appearance or Behavior. Nodules with a very low likelihood of becoming a clinically active cancer due to size or lack of growth. 2. Continue annual screening with LDCT in 12 months. Electronically authenticated by: UMM SANDHU Date: 09/26/2024 07:33
== END 2024-09-25 09:19 | disposition home or self-care (01) ==
LOC: CT 09:18
PROVIDERS: PCP Family Medicine; Visit Provider Internal Medicine
DX: R91.8 Other nonspecific abnormal finding of lung field (principal); Z87.891 Personal history of nicotine dependence; Z12.2 Encounter for screening for malignant neoplasm of respiratory organs
CPT/HCPCS: 71271

== ENCOUNTER 2024-10-27 14:00 | Emergency (ER) | payer MEDICARE, SELFPAY ==
[2024-10-27] VITALS (13 sets, daily range): BP systolic 108–147; BP diastolic 71–94; PULSE 77–91; TEMP 37.1; O2SAT 90–99; BMI 30.4
--- NOTE | 2024-10-27 14:17 | XR_ITS ---
The [address] [address] Patient Name: HUY MARTINEZ MRN: [id number] date: 1950 Sex: M Assigned Patient Location: ER Current Patient Location: ER Accession/Order Number: [id number] Exam Date: 10/27/2024 14:25 Report Date: 10/27/2024 15:13 At the request of: MARKO GRACIA Procedure: XR chest 1V EXAMINATION: XR chest 1V, , 10/27/2024 2:25 PM EST INDICATION: shortness of breath HISTORY: Ordering Provider Reason for Exam: shortness of breath Technologist Note: Additional: COMPARISON: None. TECHNIQUE: Chest x-ray: One view. FINDINGS: No pneumothorax, pleural effusion or focal airspace consolidation. Heart is normal in size. Bony thorax is unremarkable. XR/XR chest 1V IMPRESSION: No acute cardiopulmonary process. Electronically authenticated by: FABRICE HARRIS Date: 10/27/2024 15:13
--- NOTE | 2024-10-27 14:17 | ECG_ITS ---
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
[2024-10-27] MEDS: IPRATROPIUM/ALBUTEROL SULFATE 3 ML AMPUL.NEB IH (14:30)
[2024-10-27 14:40] LABS: Basophils Absolute Auto 0.1 10^3/uL (0.0-0.1); Eosinophils Absolute Auto 1.1 10^3/uL (0.0-0.7); Eosinophils Percent Auto 16.5 % (0.9-7.0); Hematocrit 35.4 % (42.0-54.0); Immature Granulocytes Abs Auto 0.02 10^3/uL (0.00-0.03); Immature Granulocytes Pct Auto 0.3 % (0.0-0.5); Lymphocytes Absolute Auto 0.8 10^3/uL (1.2-3.8); Lymphocytes Percent Auto 11.9 % (20.5-60.0); Mean Corpuscular HGB Conc 33.9 g/dL (29.9-35.2); Mean Corpuscular Hemoglobin 33.2 pg (25.9-34.0); Mean Corpuscular Volume 98.1 fL (80.0-94.0); Monocytes Absolute Auto 0.6 10^3/uL (0.3-0.8); Monocytes Percent Auto 9.1 % (1.7-12.0); Neutrophils Absolute Auto 4.1 10^3/uL (1.4-6.5); Neutrophils Percent Auto 61.2 % (43.0-75.0); Platelet Count 229 10^3/uL (150-450); Red Blood Count 3.61 10^6/uL (4.70-6.10); Red Cell Distribution Width 13.3 % (11.0-15.0); White Blood Count 6.7 10^3/uL (4.0-11.0)
[2024-10-27 15:02] LABS: Anion Gap 10.8; BUN Creatinine Ratio 6.8; Calcium 9.2 mg/dL (8.5-10.1); Carbon Dioxide 30.2 mmol/L (21.0-32.0); Chloride 97 mmol/L (98-107); Estimated GFR (African America 57 (>=60 mL/min/1.73m^2); Estimated GFR (Non-African Ame 47 (>=60 mL/min/1.73m^2); Glucose 103 mg/dL (74-106); Sodium 134 mmol/L (136-145); Troponin I High Sensitivity 23.2 pg/mL (4.0-76.1)
--- NOTE | 2024-10-27 15:30 | ED.SOB1 ---
HPI - SOB/Dyspnea General Chief Complaint: Shortness of Breath/Dyspnea Stated Complaint: SHORTNESS BREATH Time Seen by Provider: 10/27/24 14:04 Source: patient Mode of arrival: walk-in Limitations: no limitations History of Present Illness HPI Narrative: Patient presents with steadily increasing shortness of breath over the last 5 to 6 days. He states that he has been out of his Trelegy for some time. He admits to cough producing yellowish to greenish sputum. No fever or chills but he has chest congestion and wheezing. He has a home albuterol that he has been using with only minimal improvement. He denies any recent travel or known exposure to chemicals or [employer]. He does have some ill exposures, none of which have tested positive for COVID or influenza. No GI or symptoms Related Data Home Medications ?Medication ?Instructions ?Recorded ?Confirmed ascorbic acid (vitamin C) 500 mg mg PO 06/17/23 capsule atorvastatin 80 mg tablet 80 mg PO DAILY 06/17/23 06/17/23 cholecalciferol (vitamin D3) 125 5,000 unit PO DAILY 06/17/23 06/17/23 mcg (5,000 unit) capsule clopidogrel 75 mg tablet 75 mg PO DAILY 06/17/23 06/17/23 coenzyme Q10 75 mg capsule (Ultra 75 mg PO DAILY 06/17/23 06/17/23 CoQ10) fluticasone fur. 200 mcg-umeclid 1 inh inhalation DAILY 06/17/23 06/17/23 62.5 mcg-vilant 25 mcg inhalat.powder (Trelegy Ellipta) glucosamine [id number] 1 tab PO DAILY 06/17/23 06/17/23 keerthi 1,500 mg-400 unit-100 mg tablet (Osteo Bi-Flex (5-Loxin)) hydrochlorothiazide 25 mg tablet 25 mg PO DAILY 06/17/23 06/17/23 losartan 100 mg tablet 100 mg PO DAILY 06/17/23 06/17/23 metoprolol succinate 25 mg 25 mg PO DAILY 06/17/23 06/17/23 tablet,extended release 24 hr multivitamin 1 tab PO DAILY 06/17/23 06/17/23 omega 8-umb-sqa-fish oil 60 mg-90 1 cap PO DAILY 06/17/23 06/17/23 mg-500 mg capsule (Fish Oil) Previous Rx's ?Medication ?Instructions ?Recorded dicyclomine 20 mg tablet 20 mg PO TID 5 days #15 tabs 06/17/23 polyethylene glycol 3350 17 gram 17 g PO DAILY 5 days #14 ea 06/17/23 oral powder packet (Miralax) azithromycin 250 mg tablet See Rx Instructions PO .COMPLEX #6 10/27/24 tabs methylprednisolone 4 mg tablets in 4 mg PO DAILY #21 ea 10/27/24 a dose pack (Medrol (Zan)) Allergies Allergy/AdvReac Type Severity Reaction Status Date / Time Penicillins Allergy Severe Swelling Verified 10/27/24 14:15 of Lip/Tongue/Throat morphine AdvReac Severe Vomiting Verified 10/27/24 14:15 PFSH PFS Social History Little interest or pleasure in doing things: not at all Feeling down, depressed, or hopeless: not at all Exam Narrative Exam Narrative: Nurses notes and vital signs reviewed and patient is not hypoxic. afebrile General: In moderate distress. Skin: Warm, dry, no pallor noted. No rash. Head: Normocephalic, atraumatic. Neck: Supple, non-tender. Eye: Pupils are equal, round and EOMI. No scleral icterus. Ears, Nose, Mouth, and Throat: TM are clear, no posterior oropharynx erythema or nasal mucosal hypertrophy, uvula is mid-line Oral mucosa is moist Cardiovascular: Borderline tachycardia on exam. Respiratory: Accessory muscle use and slightly increased work of breathing. Lungs with diffuse expiratory wheezing, scattered rhonchi Chest Wall: no tenderness, crepitus or subcutaneous emphysema Musculoskeletal: normal ROM, no calf or popliteal tenderness, no lower extremity edema/swelling GI: Abdomen is soft, non-distended. Normal bowel sounds. No tenderness to palpation. No rebound, guarding, or rigidity noted. Neurological: A&O x4. No cranial nerve dysfunction observed. No truncal ataxia. Moves all extremities. Sensation intact. Psychiatric: Cooperative and interactive. Normal mood and affect. Constitutional Vital Signs, click to edit/add: Last Vital Signs Temp 98.8 F 10/27/24 14:10 Pulse 91 H 10/27/24 14:31 Resp 24 H 10/27/24 14:10 BP 147/72 H 10/27/24 14:10 Pulse Ox 96 10/27/24 14:31 O2 Del Method Nasal Cannula 10/27/24 14:31 O2 Flow Rate 2.5 10/27/24 14:31 Course Vital Signs Vital signs: Vital Signs Temperature 98.8 F 10/27/24 14:10 Pulse Rate 87 10/27/24 14:10 Respiratory Rate 24 H 10/27/24 14:10 Blood Pressure 147/72 H 10/27/24 14:10 Pulse Oximetry 90 L 10/27/24 14:10 Oxygen Delivery Method Room Air 10/27/24 14:10 Temperature 98.8 F 10/27/24 14:10 Pulse Rate 91 H 10/27/24 14:31 Respiratory Rate 24 H 10/27/24 14:10 Blood Pressure 147/72 H 10/27/24 14:10 Pulse Oximetry 96 10/27/24 14:31 Oxygen Delivery Method Nasal Cannula 10/27/24 14:31 Oxygen Delivery Flow Rate 2.5 10/27/24 14:31 MDM - SOB/Dyspnea MDM Narrative Medical decision making narrative: Patient was placed on cardiac tech and EKG obtained. Blood drawn and sent for evaluation. Portable chest x-ray obtained. The patient received a DuoNeb treatment and IV Solu-Medrol. Chest x-ray did not show any acute cardiopulmonary process. Unremarkable CBC. EKG did not show any ST elevation or deep ischemic changes. Troponin and BNP were negative. BMP revealed the patient's creatinine to be at its baseline with normal BUN and only minimal decrease in sodium at 134. Patient felt better after ED treatment. On exam @ 1330, he had increased air exchange and less expiratory wheezing. [facility] pulse ox was normal and his work of breathing was markedly decreased. He was discharged home with prescriptions for medrol dose pack and zpak. He has albuterol at home to use. We discussed reasons to return to the ED. Lab Data Attestation: I reviewed the patient's lab results. Labs: Lab Results 10/27/24 Range/Units 14:26 WBC 6.7 (4.0-11.0) 10^3/uL RBC 3.61 L (4.70-6.10) 10^6/uL Hgb 12.0 L (14.0-18.0) g/dL Hct 35.4 L (42.0-54.0) % MCV 98.1 H (80.0-94.0) fL MCH 33.2 (25.9-34.0) pg MCHC 33.9 (29.9-35.2) g/dL RDW 13.3 (11.0-15.0) % Plt Count 229 (150-450) 10^3/uL MPV 9.0 L (9.5-13.5) fL Neut % (Auto) 61.2 (43.0-75.0) % Lymph % (Auto) 11.9 L (20.5-60.0) % Martin % (Auto) 9.1 (1.7-12.0) % Eos % (Auto) 16.5 H (0.9-7.0) % Baso % (Auto) 1.0 (0.2-2.0) % Neut # (Auto) 4.1 (1.4-6.5) 10^3/uL Lymph # (Auto) 0.8 L (1.2-3.8) 10^3/uL Martin # (Auto) 0.6 (0.3-0.8) 10^3/uL Eos # (Auto) 1.1 H (0.0-0.7) 10^3/uL Baso # (Auto) 0.1 (0.0-0.1) 10^3/uL Abs Immat Gran (auto) 0.02 (0.00-0.03) 10^3/uL Imm/Tot Granulo (auto) 0.3 (0.0-0.5) % Sodium 134 L (136-145) mmol/L Potassium 4.0 (3.5-5.1) mmol/L Chloride 97 L (98-107) mmol/L Carbon Dioxide 30.2 (21.0-32.0) mmol/L Anion Gap 10.8 BUN 10.0 (7.0-18.0) mg/dL Creatinine 1.46 H (0.70-1.30) mg/dL Est GFR ( Amer) 57 L (>=60 mL/min/1.73m^2) Est GFR (Non-Af Amer) 47 L (>=60 mL/min/1.73m^2) BUN/Creatinine Ratio 6.8 Glucose 103 (74-106) mg/dL Calcium 9.2 (8.5-10.1) mg/dL Troponin I High Sens 23.2 (4.0-76.1) pg/mL NT-Pro-B Natriuret Pep 222.0 (<=1800.0) pg/mL Imaging Data Chest x-ray: Attestation: I have reviewed the pertinent imaging results. Radiologist's impression: ITS Impressions Chest X-Ray 10/27/24 14:17 IMPRESSION: No acute cardiopulmonary process. Electronically authenticated by: FABRICE HARRIS Date: 10/27/2024 15:13 ECG Data Attestation: I personally reviewed and interpreted this ECG as follows: Interpretation: EKG interpretation: Emergency Department physician interpretation. Normal sinus rhythm at 86bpm. Normal axis, normal intervals. Nonspecific T wave changes with no ST segment elevation or depression. Discharge Plan Discharge Chief Complaint: Shortness of Breath/Dyspnea Clinical Impression: Acute infective exacerbation of chronic obstructive airway disease Patient Disposition: Home, Self-Care Time of Disposition Decision: 15:38 Prescriptions / Home Meds: New methylprednisolone [Medrol (Zan)] 4 mg tablets,dose pack 4 mg PO DAILY Qty: 21 0RF azithromycin 250 mg tablet See Rx Instructions .ROUTE .COMPLEX Qty: 6 0RF Rx Instructions: For 250 mg dose pack: take 500 mg today (day 1), then 250 mg for 4 days (days 2-5) No Action Trelegy Ellipta 200-62.5-25 mcg blister with device 1 inh inhalation DAILY atorvastatin 80 mg tablet 80 mg PO DAILY clopidogrel 75 mg tablet 75 mg PO DAILY losartan 100 mg tablet 100 mg PO DAILY metoprolol succinate 25 mg tablet extended release 24 hr 25 mg PO DAILY hydrochlorothiazide 25 mg tablet 25 mg PO DAILY ascorbic acid (vitamin C) 500 mg capsule PO cholecalciferol (vitamin D3) 125 mcg (5,000 unit) capsule 5,000 unit PO DAILY multivitamin Tablet 1 tab PO DAILY omega 9-bjk-hfu-fish oil [Fish Oil] 60-90-500 mg capsule 1 cap PO DAILY [id number] serr [Osteo Bi-Flex (5-Loxin)] 1,500-400-100 mg-unit-mg tablet 1 tab PO DAILY Rx Instructions: give after food/meal Ultra CoQ10 75 mg capsule 75 mg PO DAILY dicyclomine 20 mg tablet 20 mg PO TID 5 Days Qty: 15 0RF polyethylene glycol 3350 [Miralax] 17 gram powder in packet 17 g PO DAILY 5 Days Qty: 14 0RF Print Language: Gabonese Instructions: COPD (Chronic Obstructive Pulmonary Disease) (ED) Referrals: Pool Peace MD [Primary Care Provider] - 1 week
[2024-10-27] MEDS: METHYLPREDNISOLONE SOD SUCC PF 125 MG/2 ML VIAL IVP (15:32)
== END 2024-10-27 16:06 | disposition home or self-care (01) ==
PROVIDERS: Emergency Provider Emergency Medicine; PCP Family Medicine
DX: J44.1 Chronic obstructive pulmonary disease with (acute) exacerbation (principal); R06.02 Shortness of breath
CPT/HCPCS: 36415; 71045; 80048; 83880; 84484; 85025; 93005; 94640; 96374; 99285; J2919

== ENCOUNTER 2024-12-24 13:27 | Emergency (ER) | payer MEDICARE, SELFPAY ==
[2024-12-24 13:34] VITALS: BP 118/68; PULSE 86; TEMP 36.7; O2SAT 96; BMI 30.8
--- OUTSIDE RECORDS SUMMARY | 2024-12-24 13:50 | XMS_ITS | CCD ---
Author Organization [facility] Providers Care Scientific Editor Name Role Phone [facility] Procedure Practitioner Unavailab le SELF, REFERRED Referring Unavailable SELF, REFERRED Primary Care Unavailable EBRAHEIM, ANDREWS Surgeon Unavailable EBRAHEIM, ANDREWS Attending Unavailable EBRAHEIM, ANDREWS Admitting Unavailable [facility] Procedure Practitioner Unavailab RASHEEDA Galarza Surgeon Unavailable UNKNOWN, PROVIDER Attending Unavailable UNKNOWN, PROVIDER Admitting Unavailable POOL GARCIA Primary Care Unavailable JOSE, POOL Referring Unavailable UNKNOWN, PROVIDER Attending Unavailable UNKNOWN, PROVIDER Admitting Unavailable NADEREMariusz, POOL Referring Unavailable NADERER, POOL Primary Care Unavailable UNKNOWN, PROVIDER Attending Unavailable UNKNOWN, PROVIDER Admitting Unavailable SELF, REFERRED Referring Unavailable SELF, REFERRED Primary Care Unavailable [place] Procedure Practitioner Unavailab le SELF, REFERRED Primary Care Unavailable EBRAHEIM, ANDREWS Surgeon Unavailable EBRAHEIM, ANDREWS Referring Unavailable EBRAHEIM, ANDREWS Attending Unavailable EBRAHEIM, ANDREWS Admitting Unavailable CHAUHAN ., DR SCOTT Jurado [...] SAMSA ., LEIGHA Admitting Unavailable SAMSA ., LIEGHA Consulting Unavailable NADEREMariusz, DR POOL Valera Primary Care Unavailable SAMSA ., LEIGHA Attending Unavailable SAMSA ., LEIGHA Admitting Unavailable AGUBOSIM, KALEIGH Consulting Unavailable LONG, CHANETLLE Consulting Unavailable LANGENBERG, CARMEN Consulting Unavailable ALEXANDRA, DR BRADY Vee [...] GALLEGOS Consulting Unavailable GALEN FOFANA Attending Unavailable JOSE, POOL IVERSON Primary Care UnavailPool Mendoza MD Unavailable Pool Garcia MD Primary Care Provider POOL GARCIA Attending Unavailable ARON ANDERSON Attending Unavailable HOLLY HUGHES Attending Unavailable Allergies Allergy Classification Reported Allergen(s) Allergy Type Date of Onset Reaction(s) Facility (3 sources) Penicillins; Translations: [PENICILLINS] Drug allergy (disorder) 7 [facility] (2 sources) Penicillin G Drug Allergy 4 hives and throat swelling [facility] (5 sources) Morphine; Translations: [MORPHINE] Drug Allergy 4 Unknown, Nausea And Vomiting, Other [facility] (3 sources) Penicillins Drug Allergy 9 Anaphylaxis, Angioedema, Hives, Itching, Other, Rash, Unknown [facility] Medications Current Medications Medication Drug Class(es) Dates Sig (Normalized) Sig (Original) amLODIPine 10 mg oral tablet (1 source) Dihydropyridine Calcium Channel Karina Start: 09-04-2024 Amlodipine 10 mg tablet Active MG PO September 04, 2024 12:00am atorvastatin 40 mg oral tablet (4 sources) HMG-CoA Reductase Inhibitor take 2 tablets by mouth once daily atorvastatin (Lipitor) 40 MG tablet Take 80 mg by mouth Daily Active Atorvastatin Christiano cium Active clopidogrel 75 mg oral tablet (4 sources) P2Y12 Platelet Inhibitor Start: 11-09-2023 take 1 tablet by mouth once daily clopidogrel (Plavix) 75 MG tablet Take 75 mg by mouth Daily 11/09/2023 Active take 1 tablet by inocencio th every twenty-four hours Clopidogrel Bisulfate 75 MG 1 tablet Orally Once a day Active CoQ-10 150 MG (1 source) CoQ-10 150 MG as directed Orally Active doxycycline hyclate 100 mg oral capsule (1 source) Tetracycline-cl ass Drug Start: 2022 take 1 capsule by mouth every twelve hours Doxycycline Hyclate 100 MG 1 capsule Orally Twice a day for 7 days May, Active Fish Oils (1 source) take 1 capsule by mouth once daily Fish Oil 1000 MG 1 capsule Orally Once a day Active hydroCHLOROthiazide 25 mg oral tablet (5 sources) Thiazide Diuretic Start: 2023 take 1 tablet by mouth once daily hydroCHLOROthiazide (HYDRODiuril) 25 MG tablet Indications: Essential (primary) hypertension (CMS/HCC) , Benign essential hypertension (CMS/HCC) TAKE 1 TABLET BY MOUTH EVERY DAY 90 tablet 3 03/05/2024 Active hydroCHLOROthiaz betito Active losartan potassium 100 mg oral tablet (6 sources) Angiotensin 2 Receptor Karina Start: 07-24-2024 End: 07-24-2025 Losartan 100 mg tablet Active MG PO September 04, 2024 12:00am Losartan Potassi um Active 24 hr metoprolol succinate 50 mg extended release oral tablet (5 sources) beta-Adrenergic Karina Start: 09-04-2024 take 1 tablet by mouth every twenty-four hours Metoprolol Succinate 50 mg tablet extended release 24 hr Active MG PO September 04, 2024 12:00am take 1 tablet by inocencio th every twenty-four hours in the morning metoprolol succinate XL (Toprol-XL) 50 M G 24 hr tablet Take 50 mg by mouth in the morning. Active Metoprolol Succi nelson ER Active Multivitamin preparation (1 source) take 1 tablet by mouth once daily Multi Vitamin - 1 tablet Orally Once a day Active Osteo Bi-Flex Adv Joint Shield (1 source) Osteo Bi-Flex Ad v Joint Shield Active predniSONE 20 mg oral tablet (2 sources) Start: 09-04-2024 take 3 tablets by mouth once daily, then take 2 tablets by mouth once daily, then take 1 tablet by mouth once daily Prednisone 20 mg tablet Active 20 MG PO .COMPLEX 18 September 04, 2024 12:00am Take 3 tabs po daily x 3 days, then take 2 tabs po daily x 3 days, then take 1 tab po daily x 3 days. Start: 05-24-2023 predniSONE 20 MG Take 3 tabs daily x 3 days, then take 2 tabs daily x 3 days, then take 1 tab daily x 3 days. Orally Once a day for 9 days May, Active Probiotic - (1 source) Probiotic - as d irected Orally Active Trelegy Ellipta (1 source) Trelegy Ellipta Active Trelegy Ellipta 200-62.5-25 MCG/ACT aerosol powder (3 sources) Start: 01-05-2024 Trelegy Ellipta 200-62.5-25 MCG/ACT aerosol powder 01/05/2024 Active Vitamin A Palmitate (A-25 (Vit A Palmitate)) 7,500 mcg (25,000 unit) capsule (1 source) Start: 09-04-2024 Vitamin A Palmitate (A-25 (Vit A Palmitate)) 7,500 mcg (25,000 unit) capsule Active 7500 MCG PO every week September 04, 2024 12:00am Vitamin C 500 MG (1 source) Vitamin [...] source) Nitrate Vasodilator Isosorbide Mononitrate ER Not-Taking terbinafine 250 mg oral tablet (3 sources) Allylamine Antifungal Start: 02-13-2024 End: 08-15-2024 take 1 tablet by mouth once daily terbinafine (LamISIL) 250 MG tablet Indications: Tinea unguium , Dermatophytosis of nail TAKE 1 TABLET BY MOUTH EVERY DAY 30 tablet 2 02/13/2024 08/15/2024 Discontinued Problems Active Problems Problem Classification Problem Date Documented Date Episodic/Chronic Chronic kidney disease (7 sources) Chronic kidney disease, unspecified; Translations: [Chronic kidney disease stage 3] Onset: 03-03-2022 02-14-2024 Chronic Chronic obstructive pulmonary disease and bronchiectasis (7 sources) Chronic obstructive pulmonary disease, unspecified; Translations: [Chronic obstructive lung disease] Onset: 03-16-2022 02-14-2024 Chronic Coronary atherosclerosis and other heart disease (7 sources) Atherosclerotic heart disease of [place] coronary artery without angina pectoris; Translations: [Coronary arteriosclerosis] Onset: 03-16-2022 02-14-2024 Chronic Disorders of lipid metabolism (9 sources) Hyperlipidemia, unspecified; Translations: [Dyslipidemia] Onset: 07-30-2022 02-14-2024 Chronic Essential hypertension (12 sources) Essential (primary) hypertension; Translations: [Benign essential hypertension] Onset: 07-27-2022 Chronic Gout and other crystal arthropathies (2 sources) 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; Translations: [Gout, unspecified] Chronic Hyperplasia of prostate (5 sources) Benign prostatic hyperplasia without lower urinary tract symptoms; Translations: [Benign prostatic hypertrophy without outflow obstruction] Onset: 03-16-2022 02-14-2024 Chronic Hypertension with complications and secondary hypertension (1 source) Hypertensive chronic kidney disease with stage 1 through stage 4 chronic kidney disease, or unspecified chronic kidney disease; Translations: [HTN CKD W/STAGE 1-4 CKD/UNS CKD] Onset: 03-16-2022 Chronic Immunizations and screening for infectious disease (2 sources) Needs influenza immunization; Translations: [Encounter for immunization] 08-15-2024 Episodic Malaise and fatigue (4 sources) Other fatigue; Translations: [OTHER FATIGUE] Onset: 01-13-2023 Episodic Nutritional deficiencies (5 sources) Vitamin D deficiency, unspecified; Translations: [Vitamin D deficiency] Onset: 07-30-2022 02-14-2024 Chronic Open wounds of head; neck; and trunk (1 source) Ocular laceration without prolapse or loss of intraocular tissue, left eye, initial encounter; Translations: [Ocular laceration without prolapse or loss of intraocular tissue, left eye, initial encounter] Onset: 03-12-2024 Episodic Osteoarthritis (5 sources) Unilateral primary osteoarthritis, right knee; Translations: [Osteoarthritis of right knee joint] Onset: 03-16-2022 02-14-2024 Chronic Other aftercare (1 source) Other mcc (current) drug therapy; Translations: [OTH SHELTER CURRENT DRUG THERAPY] Onset: 01-16-2023 Episodic Other aftercare (2 sources) Long-term current use of drug therapy; Translations: [Other mcc (current) drug therapy] 08-15-2024 Episodic Other diseases of veins and lymphatics [...] BMI 31.0-31.9 ADULT] Onset: 03-16-2022 Chronic Other nutritional; endocrine; and metabolic disorders (2 sources) Obesity caused by energy imbalance; Translations: [Class 1 obesity due to excess calories with serious comorbidity and body mass index (BMI) of 30.0 to 30.9 in adult] 08-15-2024 Chronic Other screening for suspected conditions (not mental disorders or infectious disease) (10 sources) Encounter for screening for malignant neoplasm of prostate; Translations: [CT of abdomen abnormal] Onset: 07-30-2022 02-14-2024 Episodic Other upper respiratory disease (1 source) Allergic rhinitis due to pollen; Translations: [ALLERGIC RHINITIS DUE TO POLLEN] Onset: 03-16-2022 Chronic Other upper respiratory disease (4 sources) Allergic rhinitis due to pollen; Translations: [Allergic rhinitis due to pollen] Onset: 02-14-2024 02-14-2024 Chronic Peripheral and visceral atherosclerosis (9 sources) Peripheral vascular disease, unspecified; Translations: [Peripheral vascular disease, unspecified] Onset: 03-16-2022 02-14-2024 Chronic Residual codes; unclassified (1 source) Obstructive sleep apnea (adult) (pediatric); Translations: [OBSTRUCTIVE SLEEP APNEA] Onset: 03-16-2022 Chronic Residual codes; unclassified (4 sources) Obstructive sleep apnea syndrome; Translations: [Obstructive sleep apnea (adult) (pediatric)] Onset: 02-14-2024 02-14-2024 Chronic Skull and face fractures (1 source) Fracture of orbital floor, left side, initial encounter for closed fracture; Translations: [Fracture of orbital floor, left side, initial encounter for closed fracture] Onset: 03-12-2024 Episodic Spondylosis; intervertebral disc disorders; other back problems (6 sources) Other spondylosis with radiculopathy, lumbar region; Translations: [Other intervertebral disc degeneration, lumbar region] Onset: 03-16-2022 02-14-2024 Chronic Spondylosis; intervertebral disc disorders; other back [...] Other Problems Problem Classification Problem Date Documented Date Episodic/Chronic Biliary tract disease (4 sources) Biliary calculus; Translations: [Calculus of gallbladder without cholecystitis without obstruction] Onset: 02-14-2024 02-14-2024 Episodic Mood disorders (3 sources) Mood disorders Onset: 08-15-2024 08-15-2024 Other aftercare (1 source) 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; Translations: [SHELTER CURRNT USE ANTICOAGULANTS] Onset: 03-03-2022 Episodic Other [...] Translations: [Shortness of breath] Onset: 12-26-2023 Episodic Pleurisy; pneumothorax; pulmonary collapse (1 source) [...] Test Name Value Interpretation Reference Range Facility Orders Onlyon 09-07-2024 Orders Only [id number] Huy Osei 1950 M Date Provider Department Center 09/07/2024 ZAHRAA CROWELL Family History Problem Relation Age of Onset Cancer Mother Cancer Brother Diabetes Paternal Grandmother Family Status - Relation Status Age at Mother Brother Paternal Grandmother Normal [facility] ALL CBC WITH AUTO DIFFon BASOPHILS ABSOLUTE [facility]O [facility] Basophils/100 WBC (Bld) 0.7 % 0.2 - 2.0 % [facility] Eosinophils/100 WBC (Bld) 3.2 % 0.9 - 7.0 % [facility] Erythrocyte distribution width (RBC) [Ratio] 12.9 % 11.0 - 15.0 % [facility] Hematocrit (Bld) [Volume fraction] 35.1 % Low 42.0 - 54.0 % [facility] Hemoglobin (Bld) [Mass/Vol] 11.9 g/dL Low 14.0 - 18.0 g/dL [facility] IMMATURE GRANULOCYTES ABS AUTO 0.03 [facility] Immature granulocytes/100 WBC (Bld) 0.4 % 0.0 - 0.5 % [facility] Interpretation and review of laboratory results Abnormal [facility] LYMPHOCYTES ABSOLUTE AUTO 0.9 Low [facility] Lymphocytes/100 WBC (Bld) 13.3 % Low 20.5 - 60.0 % [facility] MCH (RBC) [Entitic mass] 33.1 pg 25.9 - 34.0 pg [facility] MCHC (RBC) [Mass/Vol] 33.9 g/dL 29.9 - 35.2 g/dL [facility] MCV (RBC) [Entitic vol] 97.8 fL High 80.0 - 94.0 fL [facility] MONOCYTES ABSOLUTE AUTO 0.8 [facility] Monocytes/100 WBC (Bld) 11.7 % 1.7 - 12.0 % [facility] NEUTROPHILS ABSOLUTE AUTO 4.9 [facility] Neutrophils/100 WBC (Bld) 70.7 % 43.0 - 75.0 % [facility] Platelet mean volume (Bld) [Entitic vol] 9.2 fL Low 9.5 - 13.5 fL [facility] TBH EO # 0.2 [facility]H PLT 242 [facility] TB RBC 3.59 Low [facility] TBH WBC 6.9 [facility] [place] [facility] Office Visiton 07-13-2024 Follow-up visit [id number] Huy Osei 1950 M Date Provider Department Center 07/13/2024 [facility] Family History Problem Relation Age of Onset Cancer Mother Cancer Brother Diabetes Paternal Grandmother Family Status - Relation Status Age at Mother Brother Paternal Grandmother Level of Service:29153 [facility] OFFICE/OUTPATIENT ESTABLISHED LOW MDM 20 MIN Normal [facility] 36on 03-23-2024 34 Approving, but needs appt for additional refills. Normal [facility] CT HEAD WO CONTRASTon 2023 [...] Maria Waddell MD 03/12/24 Final result Normal [facility] Comp Metabolic Profon 2023 Albumin [Mass/Vol] 4.3 g/dL Normal 3.5-5.2 [facility] Comment on above: Performed By: #### C DP, PTT, PT, CP #### [address] [address] Mechanical Door Repairer: Daniel Rosado MD Albumin/Glob Ratio 2.0 Normal 1.0-2.5 [facility] Comment on above: Performed By: #### C DP, PTT, PT, CP #### [address] [address] Mechanical Door Repairer: Daniel Rosado MD Alkaline Phos 68 U/L Normal 40-129 [facility] Comment on above: Performed By: #### C DP, PTT, PT, CP #### [address] [address] Mechanical Door Repairer: Daniel Rosado MD ALT [Catalytic activity/Vol] 17 U/L Normal 10-50 [facility] Comment on above: Performed By: #### C DP, PTT, PT, CP #### [address] [address] Mechanical Door Repairer: Daniel Rosado MD Anion gap [Moles/Vol] 17 mmol/L High 9-[address] [facility] Comment on above: Performed By: #### C DP, PTT, PT, CP #### [address] [address] Mechanical Door Repairer: Daniel Rosado MD AST [Catalytic activity/Vol] 26 U/L Normal 10-50 [facility] Comment on above: Result Comment: SPEC IMEN SLIGHTLY HEMOLYZED, RESULTS MAY BE ADVERSELY AFFECTED. Performed By: #### C DP, PTT, PT, CP #### [address] [address] Mechanical Door Repairer: Daniel Rosado MD Bilirubin [Mass/Vol] 0.3 mg/dL Normal 0.00-1.20 [facility] Comment on above: Performed By: #### C DP, PTT, PT, CP #### [facility] [address] [place] [address] Mechanical Door Repairer: Daniel Rosado MD Calcium [Mass/Vol] 9.5 mg/dL Normal 8.6-10.4 [facility] Comment on above: Performed By: #### C DP, PTT, PT, CP #### [address] [address] Mechanical Door Repairer: Daniel Rosado MD Chloride [Moles/Vol] 94 mmol/L Low 98-107 [facility] Comment on above: Performed By: #### C DP, PTT, PT, CP #### [address] [address] Mechanical Door Repairer: Daniel Rosado MD CO2 [Moles/Vol] 18 mmol/L Low 20-31 [facility] Comment on above: Performed By: #### C DP, PTT, PT, CP #### [address] [address] Mechanical Door Repairer: Daniel Rosado MD Creatinine [Mass/Vol] 1.8 mg/dL High 0.70-1.[address] [facility] Comment on above: Performed By: #### C DP, PTT, PT, CP #### [facility] [address] [place] [address] Mechanical Door Repairer: Daniel Rosado MD GFR/1.73 sq M.predicted among non-blacks MDRD (S/P/Bld) [Vol rate/Area] 40 mL/min/{1.73_m2} Low >60 [facility] Comment on above: Result Comment: These [...] #### C DP, PTT, PT, CP #### [facility] [address] [place] [address] Mechanical Door Repairer: Daniel Rosado MD Glucose [Mass/Vol] 106 mg/dL High 74-99 [facility] Comment on above: Performed By: #### C DP, PTT, PT, CP #### [address] [address] Mechanical Door Repairer: Daniel Rosado MD Potassium [Moles/Vol] 3.9 mmol/L Normal 3.7-5.[address] [facility] Comment on above: Result Comment: SPEC IMEN SLIGHTLY HEMOLYZED, RESULTS MAY BE ADVERSELY AFFECTED. Performed By: #### C DP, PTT, PT, CP #### [address] [address] Mechanical Door Repairer: Daniel Rosado MD Protein [Mass/Vol] 6.9 g/dL Normal 6.6-8.7 [facility] Comment on above: Performed By: #### C DP, PTT, PT, CP #### [facility] [address] [place] [address] Mechanical Door Repairer: Daniel Rosado MD Sodium [Moles/Vol] 129 mmol/L Low 136-145 [facility] Comment on above: Performed By: #### C DP, PTT, PT, CP #### [address] [address] Mechanical Door Repairer: Daniel Rosado MD Urea nitrogen [Mass/Vol] 27 mg/dL High 8-23 [facility] Comment on above: Performed By: #### C DP, PTT, PT, CP #### [address] [address] Mechanical Door Repairer: Daniel Rosado MD APTTon 03-12-2024 aPTT Coag (Bld) [Time] 22.5 s Low 23.0-36.5 [facility] Comment on above: Result Comment: IV Heparin Therapy Range: 66.0-92.0 sec Performed By: #### C DP, PTT, PT, CP #### [place] [address] Mechanical Door Repairer: Daniel Rosado MD CBC with Diffon 03-12-2024 Abs. Basophil 0.06 k/uL Normal 0.00-0.20 [facility] Comment on above: Performed By: #### C DP, PTT, PT, CP #### [place] [address] Mechanical Door Repairer: Daniel Rosado MD Abs.Imm.Granulocyte 0.06 k/uL Normal 0.00-0.30 [facility] Comment on above: Performed By: #### C DP, PTT, PT, CP #### [place] [address] Mechanical Door Repairer: Daniel Rosado MD Abs.Neutrophil (Seg) 5.10 k/uL Normal 1.50-8.10 [facility] Comment on above: Performed By: #### C DP, PTT, PT, CP #### [place] [address] Mechanical Door Repairer: Daniel Rosado MD Basophils/100 WBC (Bld) 1 % Normal 0-2 [facility] Comment on above: Performed By: #### C DP, PTT, PT, CP #### [place] [address] Mechanical Door Repairer: Daniel Rosado MD Eosinophils (Bld) [#/Vol] 0.16 10*3/uL Normal 0.00-0.44 [facility] Comment on above: Performed By: #### C DP, PTT, PT, CP #### [address] [address] Mechanical Door Repairer: Daniel Rosado MD Eosinophils/100 WBC (Bld) 2 % Normal 1-4 [facility] Comment on above: Performed By: #### C DP, PTT, PT, CP #### [place] [address] Mechanical Door Repairer: Daniel Rosado MD Erythrocyte distribution width (RBC) [Ratio] 13.6 % Normal 11.8-14.4 [facility] Comment on above: Performed By: #### C DP, PTT, PT, CP #### [place] [address] Mechanical Door Repairer: Daniel Rosado MD Hematocrit (Bld) [Volume fraction] 34.3 % Low 40.7-50.3 [facility] Comment on above: Performed By: #### C DP, PTT, PT, CP #### [address] [address] Mechanical Door Repairer: Daniel Rosado MD Hemoglobin (Bld) [Mass/Vol] 11.5 g/dL Low 13.0-17.0 [facility] Comment on above: Performed By: #### C DP, PTT, PT, CP #### [address] [address] Mechanical Door Repairer: Daniel Rosado MD Immature granulocytes/100 WBC (Bld) 1 % High 0 [facility] Comment on above: Performed By: #### C DP, PTT, PT, CP #### [address] [address] Mechanical Door Repairer: Daniel Rosado MD Lymphocytes (Bld) [#/Vol] 1.02 10*3/uL Low 1.10-3.70 [facility] Comment on above: Performed By: #### C DP, PTT, PT, CP #### [address] [address] Mechanical Door Repairer: Daniel Rosado MD Lymphocytes/100 WBC (Bld) 14 % Low 24-43 [facility] Comment on above: Performed By: #### C DP, PTT, PT, CP #### [place] [address] Mechanical Door Repairer: Daniel Rosado MD MCH (RBC) [Entitic mass] 32.9 pg Normal 25.2-33.5 [facility] Comment on above: Performed By: #### C DP, PTT, PT, CP #### [place] [address] Mechanical Door Repairer: Daniel Rosado MD MCHC (RBC) [Mass/Vol] 33.5 g/dL Normal 28.4-34.[address] [facility] Comment on above: Performed By: #### C DP, PTT, PT, CP #### [place] [address] Mechanical Door Repairer: Daniel Rosado MD MCV (RBC) [Entitic vol] 98.0 fL Normal 82.6-102.9 M [facility] Comment on above: Performed By: #### C DP, PTT, PT, CP #### [place] [address] Mechanical Door Repairer: Daniel Rosado MD Monocytes (Bld) [#/Vol] 0.86 10*3/uL Normal 0.10-1.20 [facility] Comment on above: Performed By: #### C DP, PTT, PT, CP #### [address] [address] Mechanical Door Repairer: Daniel Rosado MD Monocytes/100 WBC (Bld) 12 % Normal 3-12 M [facility] Comment on above: Performed By: #### C DP, PTT, PT, CP #### [address] [address] Mechanical Door Repairer: Daniel Rosado MD Neutrophil (Seg) 70 % High 36-65 [facility] Comment on above: Performed By: #### C DP, PTT, PT, CP #### [address] [address] Mechanical Door Repairer: Daniel Rosado MD NRBC Automated 0.0 per 100 WBC Normal 0.0 [facility] Comment on above: Performed By: #### C DP, PTT, PT, CP #### [address] [address] Mechanical Door Repairer: Daniel Rosado MD Platelet mean volume (Bld) [Entitic vol] 8.9 fL Normal 8.1-13.5 [facility] Comment on above: Performed By: #### C DP, PTT, PT, CP #### [address] [address] Mechanical Door Repairer: Daniel Rosado MD Platelets (Bld) [#/Vol] 240 10*3/uL Normal 138-453 [facility] Comment on above: Performed By: #### C DP, PTT, PT, CP #### [address] [address] Mechanical Door Repairer: Daniel Rosado MD RBC (Bld) [#/Vol] 3.50 10*6/uL Low 4.21-5.77 [facility] Comment on above: Performed By: #### C DP, PTT, PT, CP #### [address] [address] Mechanical Door Repairer: Daniel Rosado MD WBC (Bld) [#/Vol] 7.3 10*3/uL Normal 3.5-11.3 [facility] Comment on above: Performed By: #### C DP, PTT, PT, CP #### [address] [id number] Mechanical Door Repairer: Daniel Rosado MD PTon 03-12-2024 INR Coag (PPP) [Relative time] 1.0 {INR} Normal [facility] Comment on above: Result Comment: Therapeutic Range: Moderate Anticoagulant Intensity: INR = 2.0-3.0 High Anticoagulant Intensity: INR = 2.5-3.5 Performed By: #### C DP, PTT, PT, CP #### [address] [id number] Mechanical Door Repairer: Daniel Rosado MD PT Coag (PPP) [Time] 13.0 s Normal 11.7-14.9 [facility] Comment on above: Performed By: #### C DP, PTT, PT, CP #### [address] [id number] Mechanical Door Repairer: Daniel Rosado MD 36on 01-18-2024 36 Regarding echo, GEETHA' s and lipid results: MD Rasheeda Godwin MA His echo, ABIs, and lipids are all okay. Follow-up in 6 months. Patient informed. Normal [facility] Office Visiton 12-26-2023 Follow-up visit [id number] Huy Osei 1950 M Date Provider Department Center 12/26/2023 ARON ONEAL JS Padilla Family History Problem Relation Age of Onset Cancer Mother Cancer Brother Diabetes Paternal Grandmother Family Status - Relation Status Age at Mother Brother Paternal Grandmother Level of Service:89618 UT OFFICE/OUTPATIENT ESTABLISHED MOD MDM 30 MIN [facility] TESTOSTERONE, TOTALon 2022 Testosterone [Mass/Vol] 215 ng/dL Critically low 264-916 [facility] Comment on above: Result Comment: Adul t male reference interval is based on a population of healthy nonobese males (BMI <30) between 19 and 39 years old. ashley Lee.al. JCEM 2017,102;[id number]. PMID: [id number]. Performed By: #### T ESTTOT #### [facility] [address] [place] [address] Dr. Marilin Rothman CBC AUTO DIFFon 01-13-2023 BASO # 0.0 103/ul Normal 0.0-0.1 [facility] Comment on above: Performed By: #### T SH, BMP #### [facility] [address] [place] [address] Dr. Marilin Rothman Basophils/100 WBC (Bld) 0.3 % Normal 0.2-2.0 [facility] Comment on above: Performed By: #### T SH, BMP #### [facility] [address] [place] [address] Dr. Marilin Rothman EO # 0.0 103/ul Normal 0.0-0.7 [facility] Comment on above: Performed By: #### T SH, BMP #### [facility] [address] [place] [address] Dr. Marilin Rothman Eosinophils/100 WBC (Bld) 0.2 % Critically low 0.9-7.0 [facility] Comment on above: Performed By: #### T SH, BMP #### [facility] [address] [place] [address] Dr. Marilin Rothman Erythrocyte distribution width (RBC) [Ratio] 13.3 % Normal 11.0-15.0 [facility] Comment on above: Performed By: #### T SH, BMP #### [facility] [address] [place] [address] Dr. Marilin Rothman Hematocrit (Bld) [Volume fraction] 38.2 % Critically low 42.0-54.0 [facility] Comment on above: Performed By: #### T SH, BMP #### [facility] [address] [place] [address] Dr. Marilin Rothman Hemoglobin (Bld) [Mass/Vol] 13.1 g/dL Critically low 14.0-18.0 [facility] Comment on above: Performed By: #### T SH, BMP #### [facility] [address] [place] [address] Dr. Marilin Rothman IG # 0.08 10e3/ul Critically high 0.00-0.03 [facility] Comment on above: Performed By: #### T SH, BMP #### [facility] [address] [place] [address] Dr. Marilin Rothman IG % 0.8 % Critically high 0.0-0.5 [facility] Comment on above: Performed By: #### T SH, BMP #### [facility] [address] [place] [address] Dr. Marilin Rothman LYMPH # 1.0 103/ul Critically low 1.2-3.[address] [facility] Comment on above: Performed By: #### T ALEXANDER, BMP #### [facility] [address] [place] [address] Dr. Marilin Rothman Lymphocytes/100 WBC (Bld) 10.1 % Critically low 20.5-60.0 [facility] Comment on above: Performed By: #### T SH, BMP #### [facility] [address] [place] [address] Dr. Marilin Rothman MANUAL DIFF REQ NO Normal [facility] Comment on above: Performed By: #### T ALEXANDER, BMP #### [facility] [address] [place] [address] Dr. Marilin Rothman MCH (RBC) [Entitic mass] 32.8 pg Normal 25.9-34.0 [facility] Comment on above: Performed By: #### T SH, BMP #### [facility] [address] [place] [address] Dr. Marilin Rothman MCHC (RBC) [Mass/Vol] 34.3 g/dL Normal 29.9-35.2 [facility] Comment on above: Performed By: #### T SH, BMP #### [facility] [address] [place] [address] Dr. Marilin Rothman MCV (RBC) [Entitic vol] 95.7 fL Critically high 80.0-94 .0 [facility] Comment on above: Performed By: #### T SH, BMP #### [facility] [address] [place] [address] Dr. Mairlin Rothman MONO # 0.8 103/ul Normal 0.3-0.8 [facility] Comment on above: Performed By: #### T SH, BMP #### [facility] [address] [place] [address] Dr. Marilin Rothman Monocytes/100 WBC (Bld) 8.1 % Normal 1.7-12.0 [facility] Comment on above: Performed By: #### T SH, BMP #### [facility] [address] [place] [address] Dr. Marilin Rothman NEUT # 7.6 103/ul Critically high 1.4-6.5 [facility] Comment on above: Performed By: #### T SH, BMP #### [facility] [address] [place] [address] Dr. Marilin Rothman Neutrophils/100 WBC (Bld) 80.5 % Critically high 43.0-75.0 [facility] Comment on above: Performed By: #### T SH, BMP #### [facility] [address] [place] [address] Dr. Marilin Rothman Platelet mean volume (Bld) [Entitic vol] 8.6 fL Critically low 9.5-13.5 [facility] Comment on above: Performed By: #### T SH, BMP #### [facility] [address] [place] [address] Dr. Marilin Rothman PLT 237 103/ul Normal 150-450 [facility] Comment on above: Performed By: #### T SH, BMP #### [facility] [address] [place] [address] Dr. Marilin Rothman RBC 3.99 106/ul Critically low 4.70-6.10 [facility] Comment on above: Performed By: #### T SH, BMP #### [facility] [address] [address] [address] Marilin Rothman WBC 9.4 103/ul Normal 4.0-11.0 [facility] Comment on above: Performed By: #### T SH, BMP #### [facility] [address] [address] [address] Marilin Rothman PROF CHEM 8 (BAS METB)on Anion gap [Moles/Vol] 7.8 mmol/L Normal [facility] Comment on above: Performed By: #### T SH, BMP #### [facility] [address] [place] [address] Dr. Marilin Rothman Calcium [Mass/Vol] 9.9 mg/dL Normal 8.5-10.1 [facility] Comment on above: Performed By: #### T SH, BMP #### [facility] [address] [place] [address] Dr. Marilin Rothman Chloride [Moles/Vol] 102 mmol/L Normal 98-107 [facility] Comment on above: Performed By: #### T SH, BMP #### [facility] [address] [place] [address] Dr. Marilin Rothman CO2 [Moles/Vol] 31.8 mmol/L Normal 21.0-32.0 [facility] Comment on above: Performed By: #### T SH, BMP #### [facility] [address] [place] [address] Dr. Marilin Rothman Creatinine [Mass/Vol] 1.30 mg/dL Normal 0.70-1.30 [facility] Comment on above: Performed By: #### T SH, BMP #### [facility] [address] [place] [address] Dr. Marilin Rothman EGFR-AF UZBEK >60 Normal >=60 [facility] Comment on above: Performed By: #### T SH, BMP #### [facility] [address] [place] [address] Dr. Marilin Rothman EGFR-NON AF UZBEK 54 mL/min/1.73m2 Critically low >=60 [facility] Comment on above: Performed By: #### T SH, BMP #### [facility] [address] [address] [address] Marilin Rothman Glucose [Mass/Vol] 110 mg/dL Critically high 74-106 [facility] Comment on above: Performed By: #### T SH, BMP #### [facility] [address] [address] [address] Marilin Rothman Potassium [Moles/Vol] 4.6 mmol/L Normal 3.5-5.1 [facility] Comment on above: Performed By: #### T SH, BMP #### [facility] [address] [address] [address] Marilin Rothman Sodium [Moles/Vol] 137 mmol/L Normal 136-145 [facility] Comment on above: Performed By: #### T SH, BMP #### [facility] [address] [place] [address] Dr. Marilin Rothman Urea nitrogen [Mass/Vol] 18.0 mg/dL Normal 7.0-18.0 [facility] Comment on above: Performed By: #### T SH, BMP #### [facility] [address] [address] [address] Marilin Rothman Urea nitrogen/Creatinine [Mass ratio] 13.8 mg/mg Normal [facility] Comment on above: Performed By: #### T SH, BMP #### [facility] [address] [place] [address] Dr. Marilin Rothman TSHon 01-13-2023 TSH 0.951 uIU/mL Normal 0.358-3.740 [facility] Comment on above: Performed By: #### T SH, BMP #### [facility] [address] [place] [address] Dr. Marilin Rothman XR LSPINE W_OBLS AND [...] by: BRADY MORRIS Date: 2022-10-27 17:11 Normal [facility] CBC AUTO DIFFon 07-27-2022 BASO # 0.1 103/ul Normal 0.0-0.1 [facility] Comment on above: Performed By: #### T ALEXANDER, BMP #### [facility] [address] [place] [address] Dr. Marilin Rothman Basophils/100 WBC (Bld) 0.8 % Normal 0.2-2.0 [facility] Comment on above: Performed By: #### T ALEXANDER, BMP #### [facility] [address] [place] [address] Dr. Marilin Rothman EO # 0.1 103/ul Normal 0.0-0.7 [facility] Comment on above: Performed By: #### T ALEXANDER, BMP #### [facility] [address] [place] [address] Dr. Marilin Rothman Eosinophils/100 WBC (Bld) 2.2 % Normal 0.9-7.0 [facility] Comment on above: Performed By: #### T ALEXANDER, BMP #### [facility] [address] [place] [address] Dr. Marilin Rothman Erythrocyte distribution width (RBC) [Ratio] 13.2 % Normal 11.0-15.0 [facility] Comment on above: Performed By: #### T ALEXANDER, BMP #### [facility] [address] [place] [address] Dr. Marilin Rothman Hematocrit (Bld) [Volume fraction] 38.6 % Critically low 42.0-54.0 [facility] Comment on above: Performed By: #### T ALEXANDER, BMP #### [facility] [address] [place] [address] Dr. Marilin Rothman Hemoglobin (Bld) [Mass/Vol] 12.5 g/dL Critically low 14.0-18.0 [facility] Comment on above: Performed By: #### T SH, BMP #### [facility] [address] [place] [address] Dr. Marilin Rothman IG # 0.06 10e3/ul Critically high 0.00-0.03 [facility] Comment on above: Performed By: #### T SH, BMP #### [facility] [address] [place] [address] Dr. Marilin Rothman IG % 1.0 % Critically high 0.0-0.5 [facility] Comment on above: Performed By: #### T SH, BMP #### [facility] [address] [place] [address] Dr. Marilin Rothman LYMPH # 1.0 103/ul Critically low 1.2-3.[address] [facility] Comment on above: Performed By: #### T SH, BMP #### [facility] [address] [place] [address] Dr. Marilin Rothman Lymphocytes/100 WBC (Bld) 15.9 % Critically low 20.5-60.0 [facility] Comment on above: Performed By: #### T SH, BMP #### [facility] [address] [place] [address] Dr. Marilin Rothman MANUAL DIFF REQ NO Normal [facility] Comment on above: Performed By: #### T SH, BMP #### [facility] [address] [place] [address] Dr. Marilin Rothman MCH (RBC) [Entitic mass] 32.2 pg Normal 25.9-34.0 [facility] Comment on above: Performed By: #### T SH, BMP #### [facility] [address] [place] [address] Dr. Marilin Rothman MCHC (RBC) [Mass/Vol] 32.4 g/dL Normal 29.9-35.2 [facility] Comment on above: Performed By: #### T SH, BMP #### [facility] [address] [place] [address] Dr. Marilin Rothman MCV (RBC) [Entitic vol] 99.5 fL Critically high 80.0-94 .0 [facility] Comment on above: Performed By: #### T SH, BMP #### [facility] [address] [place] [address] Dr. Marilin Rothman MONO # 0.8 103/ul Normal 0.3-0.8 [facility] Comment on above: Performed By: #### T SH, BMP #### [facility] [address] [place] [address] Dr. Marilin Rothman Monocytes/100 WBC (Bld) 12.9 % Critically high 1.7-12. 0 [facility] Comment on above: Performed By: #### T SH, BMP #### [facility] [address] [place] [address] Dr. Marilin Rothman NEUT # 4.2 103/ul Normal 1.4-6.5 [facility] Comment on above: Performed By: #### T SH, BMP #### [facility] [address] [place] [address] Dr. Marilin Rothman Neutrophils/100 WBC (Bld) 67.2 % Normal 43.0-75.0 [facility] Comment on above: Performed By: #### T SH, BMP #### [facility] [address] [place] [address] Dr. Marilin Rothman Platelet mean volume (Bld) [Entitic vol] 9.3 fL Critically low 9.5-13.5 [facility] Comment on above: Performed By: #### T SH, BMP #### [facility] [address] [place] [address] Dr. Marilin Rothman PLT 260 103/ul Normal 150-450 [facility] Comment on above: Performed By: #### T SH, BMP #### [facility] [address] [place] [address] Dr. Marilin Rothman RBC 3.88 106/ul Critically low 4.70-6.10 [facility] Comment on above: Performed By: #### T SH, BMP #### [facility] [address] [address] [address] Marilin Rothman WBC 6.3 103/ul Normal 4.0-11.0 [facility] Comment on above: Performed By: #### T SH, BMP #### [facility] [address] [address] [address] Marilin Rothman LIPID PROFILEon 07-27-2022 CHOL-HDL RATIO NORM SEE BELOW Normal [facility] Comment on above: Result Comment: 3.3 - 4.4 LOW RISK 4.4 - 7.1 AVERAGE RISK 7.1 - 11.0 MODERATE RISK >11.0 HIGH RISK Performed By: #### T SH, BMP #### [facility] [address] [place] [address] Dr. Marilin Rothman Cholesterol [Mass/Vol] 155 mg/dL Normal <=200 [facility] Comment on above: Performed By: #### T SH, BMP #### [facility] [address] [place] [address] Dr. Marilin Rothman Cholesterol in HDL [Mass/Vol] 76 mg/dL Critically high 40-60 [facility] Comment on above: Performed By: #### T SH, BMP #### [facility] [address] [place] [address] Dr. Marilin Rothman Cholesterol in LDL [Mass/Vol] 54.8 mg/dL Normal [facility] Comment on above: Performed By: #### T SH, BMP #### [facility] [address] [place] [address] Dr. Marilin Rothman Cholesterol.total/Grace sterol in HDL [Mass ratio] 2.0 {ratio} Normal [facility] Comment on above: Performed By: #### T SH, BMP #### [facility] [address] [place] [address] Dr. Marilin Rothman HDL NORMAL > or = 60 mg/dl - LO W CARDIOVASCULAR RISK <40 mg/dl - HIGH CARDIOVASCULAR RISK Normal [facility] Comment on above: Performed By: #### T SH, BMP #### [facility] [address] [place] [address] Dr. Marilin Rothman LDL CALC NORMAL SEE BELOW Normal [facility] Comment on above: Result Comment: <100 mg/dl OPTIMAL 100 - 129 mg/dl NEAR OR ABOVE OPTIMAL 130 - 159 mg/dl BORDERLINE HIGH 160 - 189 mg/dl HIGH >190 mg/dl VERY HIGH Performed By: #### T SH, BMP #### [facility] [address] [address] [address] Marilin Rothman Triglyceride [Mass/Vol] 121 mg/dL Normal <=150 [facility] Comment on above: Performed By: #### T SH, BMP #### [facility] [address] [address] [address] Marilin Rothman VLDL CALC 24.2 mg/dL Normal [facility] Comment on above: Performed By: #### T SH, BMP #### [facility] [address] [place] [address] Dr. Marilin Rothman LIVER PROFILEon 07-27-2022 Albumin [Mass/Vol] 3.9 g/dL Normal 3.4-5.0 [facility] Comment on above: Performed By: #### T SH, BMP #### [facility] [address] [place] [address] Dr. Marilin Rothman Albumin/Globulin [Mass ratio] 1.2 {ratio} Normal [facility] Comment on above: Performed By: #### T SH, BMP #### [facility] [address] [place] [address] Dr. Marilin Rothman ALP [Catalytic activity/Vol] 89 U/L Normal 46-116 [facility] Comment on above: Performed By: #### T SH, BMP #### [facility] [address] [place] [address] Dr. Marilin Rothman ALT [Catalytic activity/Vol] 26 U/L Normal 16-63 [facility] Comment on above: Performed By: #### T SH, BMP #### [facility] [address] [place] [address] Dr. Marilin Rothman AST [Catalytic activity/Vol] 17 U/L Normal 15-37 [facility] Comment on above: Performed By: #### T SH, BMP #### [facility] [address] [place] [address] Dr. Marilin Rothman BILI, CONJUGATED 0.2 mg/dL Normal 0.0-0.2 [facility] Comment on above: Performed By: #### T SH, BMP #### [facility] [address] [place] [address] Dr. Marilin Rothman Bilirubin [Mass/Vol] 0.6 mg/dL Normal 0.2-1.0 [facility] Comment on above: Performed By: #### T SH, BMP #### [facility] [address] [place] [address] Dr. Marilin Rothman Globulin (S) [Mass/Vol] 3.2 g/dL Normal [facility] Comment on above: Performed By: #### T SH, BMP #### [facility] [address] [place] [address] Dr. Marilin Rothman Protein [Mass/Vol] 7.1 g/dL Normal 6.4-8.2 [facility] Comment on above: Performed By: #### T SH, BMP #### [facility] [address] [place] [address] Dr. Marilin Rothman PROF CHEM 8 (BAS METB)on Anion gap [Moles/Vol] 13.7 mmol/L Normal [facility] Comment on above: Performed By: #### T SH, BMP #### [facility] [address] [place] [address] Dr. Marilin Rothman Calcium [Mass/Vol] 9.3 mg/dL Normal 8.5-10.1 [facility] Comment on above: Performed By: #### T SH, BMP #### [facility] [address] [place] [address] Dr. Marilin Rothman Chloride [Moles/Vol] 96 mmol/L Critically low 98-107 [facility] Comment on above: Performed By: #### T SH, BMP #### [facility] [address] [place] [address] Dr. Marilin Rothman CO2 [Moles/Vol] 25.9 mmol/L Normal 21.0-32.0 [facility] Comment on above: Performed By: #### T SH, BMP #### [facility] [address] [address] [address] Marilin Rothman Creatinine [Mass/Vol] 1.10 mg/dL Normal 0.70-1.30 [facility] Comment on above: Performed By: #### T SH, BMP #### [facility] [address] [address] [address] Marilin Rothman EGFR-AF UZBEK >60 Normal >=60 [facility] Comment on above: Performed By: #### T SH, BMP #### [facility] [address] [address] [address] Marilin Rothman EGFR-NON AF UZBEK >60 Normal >=60 [facility] Comment on above: Performed By: #### T SH, BMP #### [facility] [address] [place] [address] Dr. Marilin Rothman Glucose [Mass/Vol] 93 mg/dL Normal 74-106 [facility] Comment on above: Performed By: #### T SH, BMP #### [facility] [address] [address] [address] Marilin Rothman Potassium [Moles/Vol] 4.6 mmol/L Normal 3.5-5.1 [facility] Comment on above: Performed By: #### T SH, BMP #### [facility] [address] [place] [address] Dr. Marilin Rothman Sodium [Moles/Vol] 131 mmol/L Critically low 136-145 [facility] Comment on above: Performed By: #### T SH, BMP #### [facility] [address] [address] [address] Marilin Rothman Urea nitrogen [Mass/Vol] 14.0 mg/dL Normal 7.0-18.0 [facility] Comment on above: Performed By: #### T SH, BMP #### [facility] [address] [place] [address] Dr. Marilin Rothman Urea nitrogen/Creatinine [Mass ratio] 12.7 mg/mg Normal [facility] Comment on above: Performed By: #### T SH, BMP #### [facility] [address] [place] [address] Dr. Marilin Rothman TSHon 07-27-2022 TSH 1.933 uIU/mL Normal 0.358-3.740 [facility] Comment on above: Performed By: #### T SH, BMP #### [facility] [address] [place] [address] Dr. Marilin Rothman VITAMIN D 25 OHon 07-27-2022 VIT D 25-OH 85.4 ng/mL Normal [facility] Comment on above: Performed By: #### T SH, BMP #### [facility] [address] [place] [address] Dr. Marilin Rothman VIT D RANGES SEE BELOW [facility] Comment on above: Result Comment: <20 ng/mL Vit D deficient 20 - <30 ng/mL Vit D insufficient 30 - 100 ng/mL Vit D sufficient >100 ng/mL Potential Toxicity Performed By: #### T SH, BMP #### [facility] [address] [place] [address] Dr. Marilin Rothman ACID FAST SMEAR AND CXon Acid Fast Culture Negative Normal [facility] Comment on above: Result Comment: No a amos fast bacilli isolated after 6 weeks. Performed By: #### T SH, BMP #### [facility] [address] [place] [address] Dr. Marilin Rothman Acid Fast Smear Negative Normal [facility] Comment on above: Performed By: #### T SH, BMP #### [facility] [address] [place] [address] Dr. Marilin Rothman AF[employer] Specimen Processing Direct Inoculation Normal [facility] Comment on above: Performed By: #### T SH, BMP #### [facility] [address] [place] [address] Dr. Marilin Rothman FUNGAL CULTUREon 04-09-2022 Fungus (Mycology) Culture Final report Normal [facility] Comment on above: Performed By: #### C XFUN #### [facility] [address] [place] [address] Dr. Marilin Rothman Fungus Stain Final report Normal [facility] Comment on above: Performed By: #### C XFUN #### [facility] [address] [place] [address] Dr. Marilin Rothman Result 1 Comment Normal [facility] Comment on above: Result Comment: RITA/ Calcofluor preparation: no fungus observed. Performed By: #### C XFUN #### [facility] [address] [place] [address] Dr. Marilin Rothman Result Comment: No y east or mold isolated after 4 weeks. LOWER RESPIRATORY CULTUREon 03-14-2022 Lower Respiratory Culture Final report Normal [facility] Comment on above: Performed By: #### C XLORES #### [facility] [address] [place] [address] Dr. Marilin Rothman Result 1 Comment Normal [facility] Comment on above: Result Comment: Rout ine respiratory carlito Performed By: #### C XLORES #### [facility] [address] [place] [address] Dr. Marilin Rothman CYTOLOGYon 03-11-2022 SENT TO REF LAB 03/12/22 Normal [facility] Comment on above: Performed By: #### C YTO #### [facility] [address] [place] [address] Dr. Marilin Rothman GRAM STAINon 03-11-2022 COMMENTS NO ORGANISMS OBSERVED Normal [facility] Comment on above: Performed By: #### G STAIN #### [facility] [address] [place] [address] Dr. Marilin Rothman DIPHTHEROIDS Normal [facility] Comment on above: Performed By: #### G STAIN #### [facility] [address] [place] [address] Dr. Marilin Rothman EPITHELIALS FEW Normal [facility] Comment on above: Performed By: #### G STAIN #### [facility] [address] [place] [address] Dr. Marilin Rothman FUNGAL ELEMENTS Normal [facility] Comment on above: Performed By: #### G STAIN #### [facility] [address] [place] [address] Dr. Marilin Rothman GRAM NEG BACILLI Normal [facility] Comment on above: Performed By: #### G STAIN #### [facility] [address] [address] [address] Marilin Rothman GRAM NEG DIPPLOCOCCI Normal [facility] Comment on above: Performed By: #### G STAIN #### [facility] [address] [place] [address] Dr. Marilin Rothman GRAM POS BACILLI Normal [facility] Comment on above: Performed By: #### G STAIN #### [facility] [address] [address] [address] Marilin Rothman GRAM POSITIVE COCCI Normal [facility] Comment on above: Performed By: #### G STAIN #### [facility] [address] [place] [address] Dr. Marilin Rothman GRAM STAIN SOURCE R. LOWER LOBE LAVAGE [facility] Comment on above: Performed By: #### G STAIN #### [facility] [address] [place] [address] Dr. Marilin Rothman GS_DIPTH [facility] Comment on above: Performed By: #### G STAIN #### [facility] [address] [place] [address] Dr. Marilin Rothman WBC FEW Normal [facility] Comment on above: Performed By: #### G STAIN #### [facility] [address] [place] [address] Dr. Marilin Rothman IMMUNOGLOBULIN E, TOTALon Immunoglobulin E, Total 129 IU/mL Normal 6-495 T [facility] Comment on above: Performed By: #### I GETOT #### [facility] [address] [place] [address] Dr. Marilin Rothman CBC AUTO DIFFon 03-01-2022 BASO # 0.1 103/ul Normal 0.0-0.1 [facility] Comment on above: Performed By: #### T SH, BMP #### [facility] [address] [place] [address] Dr. Marilin Rothman Basophils/100 WBC (Bld) 0.9 % Normal 0.2-2.0 [facility] Comment on above: Performed By: #### T SH, BMP #### [facility] [address] [place] [address] Dr. Marilin Rothman EO # 0.7 103/ul Normal 0.0-0.7 [facility] Comment on above: Performed By: #### T SH, BMP #### [facility] [address] [place] [address] Dr. Marilin Rothman Eosinophils/100 WBC (Bld) 9.2 % Critically high 0.9-7.0 [facility] Comment on above: Performed By: #### T SH, BMP #### [facility] [address] [place] [address] Dr. Marilin Rothman Erythrocyte distribution width (RBC) [Ratio] 13.0 % Normal 11.0-15.0 [facility] Comment on above: Performed By: #### T SH, BMP #### [facility] [address] [place] [address] Dr. Marilin Rothman Hematocrit (Bld) [Volume fraction] 39.5 % Critically low 42.0-54.0 [facility] Comment on above: Performed By: #### T SH, BMP #### [facility] [address] [place] [address] Dr. Marilin Rothman Hemoglobin (Bld) [Mass/Vol] 13.0 g/dL Critically low 14.0-18.0 [facility] Comment on above: Performed By: #### T SH, BMP #### [facility] [address] [place] [address] Dr. Marilin Rothman IG # 0.03 10e3/ul Normal 0.00-0.03 [facility] Comment on above: Performed By: #### T SH, BMP #### [facility] [address] [place] [address] Dr. Marilin Rothman IG % 0.4 % Normal 0.0-0.5 [facility] Comment on above: Performed By: #### T SH, BMP #### [facility] [address] [place] [address] Dr. Marilin Rothman LYMPH # 1.1 103/ul Critically low 1.2-3.8 [facility] Comment on above: Performed By: #### T SH, BMP #### [facility] [address] [place] [address] Dr. Marilin Rothman Lymphocytes/100 WBC (Bld) 14.2 % Critically low 20.5-60.0 [facility] Comment on above: Performed By: #### T SH, BMP #### [facility] [address] [place] [address] Dr. Marilin Rothman MANUAL DIFF REQ NO Normal [facility] Comment on above: Performed By: #### T SH, BMP #### [facility] [address] [place] [address] Dr. Marilin Rothman MCH (RBC) [Entitic mass] 32.2 pg Normal 25.9-34.0 [facility] Comment on above: Performed By: #### T SH, BMP #### [facility] [address] [place] [address] Dr. Marilin Rothman MCHC (RBC) [Mass/Vol] 32.9 g/dL Normal 29.9-35.2 [facility] Comment on above: Performed By: #### T SH, BMP #### [facility] [address] [place] [address] Dr. Marilin Rothman MCV (RBC) [Entitic vol] 97.8 fL Critically high 80.0-94 .0 [facility] Comment on above: Performed By: #### T SH, BMP #### [facility] [address] [place] [address] Dr. Marilin Rothman MONO # 0.9 103/ul Critically high 0.3-0.8 [facility] Comment on above: Performed By: #### T SH, BMP #### [facility] [address] [place] [address] Dr. Marilin Rothman Monocytes/100 WBC (Bld) 11.8 % Normal 1.7-12.0 [facility] Comment on above: Performed By: #### T SH, BMP #### [facility] [address] [place] [address] Dr. Marilin Rothman NEUT # 4.7 103/ul Normal 1.4-6.5 [facility] Comment on above: Performed By: #### T SH, BMP #### [facility] [address] [address] [address] Marilin Rothman Neutrophils/100 WBC (Bld) 63.5 % Normal 43.0-75.0 [facility] Comment on above: Performed By: #### T ALEXANDER, BMP #### [facility] [address] [place] [address] Dr. Marilin Rothman Platelet mean volume (Bld) [Entitic vol] 8.7 fL Critically low 9.5-13.5 [facility] Comment on above: Performed By: #### T ALEXANDER, BMP #### [facility] [address] [place] [address] Dr. Marilin Rothman PLT 250 103/ul Normal 150-450 [facility] Comment on above: Performed By: #### T ALEXANDER, BMP #### [facility] [address] [place] [address] Dr. Marilin Rothman RBC 4.04 106/ul Critically low 4.70-6.10 [facility] Comment on above: Performed By: #### T ALEXANDER, BMP #### [facility] [address] [place] [address] Dr. Marilin Rothman WBC 7.5 103/ul Normal 4.0-11.0 [facility] Comment on above: Performed By: #### T ALEXANDER, BMP #### [facility] [address] [place] [address] Dr. Marilin Rothman PROTIMEon 03-01-2022 INR Coag (PPP) [Relative time] 0.97 {INR} Normal [facility] Comment on above: Performed By: #### T ALEXANDER, BMP #### [facility] [address] [place] [address] Dr. Marilin Rothman INR GUIDELINES SEE BELOW Normal [facility] Comment on above: Result Comment: TOAN RED INR: 2.0 - 3.0 CONDITIONS NOT LISTED BELOW 2.5 - 3.5 FOR PROSTHETIC HEART VALVE REPLACEMENT 2.5 - 3.5 RECURRENT THROMBOSIS Performed By: #### T SH, BMP #### [facility] [address] [place] [address] Dr. Marilin Rothman PT Coag (PPP) [Time] 10.5 s Normal 9.0-11.6 [facility] Comment on above: Performed By: #### T SH, BMP #### [facility] [address] [place] [address] Dr. Marilin Rothman PTTon 03-01-2022 aPTT Coag (Bld) [Time] 27.5 s Normal 22.3-36.2 [facility] Comment on above: Performed By: #### T SH, BMP #### [facility] [address] [place] [address] Dr. Marilin Rothman ASPERGILLUS AB, QUANTITATIVE DIDon 02-28-2022 Aspergillus flavus Negative Normal Neg:<1:1 [facility] Comment on above: Performed By: #### T SH, BMP #### [facility] [address] [place] [address] Dr. Marilin Rothman Aspergillus fumigatus Negative Normal Neg:<1:1 [facility] Comment on above: Performed By: #### T SH, BMP #### [facility] [address] [place] [address] Dr. Marilin Rothman Aspergillus niger Negative Normal Neg:<1:1 [facility] Comment on above: Performed By: #### T SH, BMP #### [facility] [address] [place] [address] Dr. Marilin Rothman ANTI NEUTROPHIL CYTOPLASMIC AB (ANCA) PRon 02-26-2022 Antimyeloperoxidase (MPO) Abs <9.0 Normal 0.0-9.0 [facility] Comment on above: Result Comment: Perf ormed at: BN Performed By: #### A NCAP #### [facility] [address] [place] [address] Dr. Marilin Rothman Antiproteinase 3 (UT-3) Abs <3.5 Normal 0.0-3.5 [facility] Comment on above: Result Comment: Perf ormed at: BN Performed By: #### A NCAP #### [facility] [address] [address] [address] Marilin Rothman Atypical pANCA <1:20 Normal Neg:<1:20 [facility] Comment on above: Result Comment: The atypical pANCA pattern has been observed in a significant percentage of patients with ulcerative colitis, primary sclerosing cholangitis and autoimmune hepatitis. Performed at: CB Performed By: #### A NCAP #### [facility] [address] [place] [address] Dr. Marilin Rothman Cytoplasmic (C-ANCA) <1:20 Normal Neg:<1:20 [facility] Comment on above: Result Comment: Perf ormed at: CB Performed By: #### A NCAP #### [facility] [address] [place] [address] Dr. Marilin Rothman Perinuclear (P-ANCA) <1:20 Normal Neg:<1:20 [facility] Comment on above: Result Comment: The presence of positive fluorescence exhibiting P-ANCA or C-ANCA patterns alone is not specific for the diagnosis of Antwan's Granulomatosis (WG) or microscopic polyangiitis. Decisions about treatment should not be based solely on ANCA IFA results. The International ANCA Group Consensus recommends follow up testing of positive sera with both UT-3 and MPO-ANCA enzyme immunoassays. As many as 5% serum samples are positive only by EIA. Ref. AM J Clin Pathol 1999;111:507-513. Performed at: CB Performed By: #### A NCAP #### [facility] [address] [place] [address] LUNG CANCER SCREENINGon [...] BRADY MORRIS Date: 2022-02-24 11:30 Normal [facility] PROF CHEM 8 (BAS METB)on Anion gap [Moles/Vol] 8.6 mmol/L Normal [facility] Comment on above: Performed By: #### B MP #### [facility] [address] [place] [address] Dr. Marilin Rothman Calcium [Mass/Vol] 9.0 mg/dL Normal 8.5-10.1 [facility] Comment on above: Performed By: #### B MP #### [facility] [address] [address] [address] Marilin Rothman Chloride [Moles/Vol] 100 mmol/L Normal 98-107 [facility] Comment on above: Performed By: #### B MP #### [facility] [address] [address] [address] Marilin Rothman CO2 [Moles/Vol] 30.5 mmol/L Normal 21.0-32.0 [facility] Comment on above: Performed By: #### B MP #### [facility] [address] [address] [address] Marilin Rothman Creatinine [Mass/Vol] 1.35 mg/dL Critically high 0.70-1.30 [facility] Comment on above: Performed By: #### B MP #### [facility] [address] [address] [address] Marilin Rothman EGFR-AF UZBEK >60 Normal >=60 [facility] Comment on above: Performed By: #### B MP #### [facility] [address] [address] [address] Marilin Rothman EGFR-NON AF UZBEK 52 mL/min/1.73m2 Critically low >=60 [facility] Comment on above: Performed By: #### B MP #### [facility] [address] [address] [address] Marilin Rothman Glucose [Mass/Vol] 100 mg/dL Normal 74-106 [facility] Comment on above: Performed By: #### B MP #### [facility] [address] [address] [address] Marilin Rothman Potassium [Moles/Vol] 4.1 mmol/L Normal 3.5-5.1 [facility] Comment on above: Performed By: #### B MP #### [facility] [address] [address] [address] Marilin Rothman Sodium [Moles/Vol] 135 mmol/L Critically low 136-145 [facility] Comment on above: Performed By: #### B MP #### [facility] [address] [address] [address] Marilin Rothman Urea nitrogen [Mass/Vol] 13.0 mg/dL Normal 7.0-18.0 [facility] Comment on above: Performed By: #### B MP #### [facility] [address] [address] [address] Marilin Rothman Urea nitrogen/Creatinine [Mass ratio] 9.6 mg/mg Normal [facility] Comment on above: Performed By: #### B MP #### [facility] [address] [address] [address] Marilin Rothman Cardiovascular Lab Reporton 08-22-2020 Cardiovascular Lab Report [facility] Patient Name: Huy Osei [facility] MR #: [id number] Physician: Sanket Reyes M.D. Department of Service Date: 08/21/2020 Medicine Birthdate: 1950 Division of Room #: CC Cardiology Adult Cardiovascular Services [facility] [address] [facility] [place], [place] [address] Cardiovascular Laboratory Report REAL ESTATE LEASING AGENT: Aron Anderson M.D. FINAL IMPRESSION: Successful angioplasty, [...] inner cannula was then exchanged for a 5-Tristanian sheath. Through the 5-Tristanian sheath, a Uni-Flush catheter was introduced into the abdominal aorta and the aortic bifurcation was traversed using a 0.035 hydrophilic guidewire. Next, the catheter was then placed in the right femoral artery and angiography was performed. A guidewire exchange was then performed removing the catheter and sheath and replacing these with a 6-Tristanian Renaldo through which a NaviCross was introduced [...] exchanged for an Renaldo sheath with a Tubewarkety-Kenroy Adapter. Through this, a 6 mm x [...] was achieved. Final angiography was performed. A 6-Tristanian Angio-Seal was deployed. Adequate hemostasis was achieved. [...] Reyes M.D. Date Trans: 08/22/2020 02:59 A/noreen [id number] cc: Pool Garcia M.D. [address] [facility] [address] Normal [facility] Cardiovascular Lab Reporton 05-06-2020 Cardiovascular Lab Report [facility] Patient Name: Huy Osei [facility] MR #: [id number] Physician: Aron Daniel of [facility] Medicine Service Date: 05/05/2020 Division of Birthdate: 1950 Cardiology Room #: 3CD [id number] Adult Cardiovascular Services [address] [place] [address] Cardiovascular Laboratory Report INDICATION: The patient is [...] right superficial femoral artery. 6. Use of [place] IVUS-guided reentry catheter. 7. 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 METHODS: Procedure was explained to the patient with risks and benefits. He signed informed consent. He was brought to quality control lab tech in a fasting state. The left groin area was prepped and draped in usual fashion. Using ultrasound guidance and micropuncture technique, the left common femoral artery was accessed. The inner cannula was advanced. Limited left femoral angiography was performed followed by upsizing to a 6-Tristanian x 11 cm sheath. Next, a 5-Tristanian Uni-Flush catheter was advanced and placed in the distal abdominal aorta. An angled Glidewire was then used to cross the aortoiliac bifurcation and the catheter was advanced to the level of the right common femoral artery and then over a Magic Torque wire, this was exchanged along with the access sheath to a 6-Tristanian x 55 cm Renaldo sheath. Right lower [...] At that time, we advanced an angled [place] catheter through the antegrade sheath over a straight Glidewire and we crossed subintimally proximally and advanced to the proximal to mid segment of the SFA. We advanced a scaffolding helper 5 x 40 mm balloon and used that balloon to perform reverse CART technique with multiple inflations using that balloon as well as an NC Quantum Clementon 3.0 x 15 mm noncompliant balloon advanced through the retrograde wire for CART technique. Repeated multiple inflations and multiple attempts were performed at multiple levels. However, we were not able to join the 2 subintimal spaces and therefore, we abandoned this technique. We decided to go with the [place] reentry catheter from the antegrade access. This was then advanced to the subintimal space in the mid SFA over a [place] wire and using the standard technique, we identified under intravascular ultrasound the true lumen and once this was positioned in the 12 o'clock position, the needle was advanced the appropriate amount and after 2 attempts, the [place] wire was able to advance into the true lumen. This was confirmed as the wire came in parallel with the retrograde wire. However, at this point, while trying to remove the [place] catheter, the [place] wire got kinked and entangled, and we were not able to retrieve the [place] catheter over the wire and we had to remove the both wire and [place] catheter assembly together and therefore, lost access into the true lumen. We repeated this process again and we are able to advance the [place] catheter into position and multiple attempts at this point were made to gain access into the true lumen, however, those failed and we had to retrieve the [place] catheter and terminate the procedure at this time. The [place] catheter and the Renaldo sheath were removed [...] He will be admitted for overnight observation. CONCESSIONIST: Shahzad Caballero MD. TOTAL FLUORO TIME: 101.28 [...] Anderson M.D. Date Trans: 05/06/2020 05:57 A/noreen [id number] cc: Pool Garcia M.D. [address] [facility] [address] Normal [facility] APTTon 04-17-2020 aPTT Coag (Bld) [Time] 27.5 s Normal 25.0-35.0 [facility] Comment on above: Order Comment: This order is a replacement of the rejected order with accession [id number]. Result Comment: ALL RESULTS MUST BE INTERPRETED [...] PURPOSE. Performed By: #### 6 2586 #### [place] [address], [facility] BASIC METABOLIC PANELon 06-2 Calcium [Mass/Vol] 8.4 mg/dL Low 8.6-10.3 [facility] Comment on above: Order Comment: No: D o not add to previous draw Performed By: #### 6 2586 #### [facility] [address] [place] [address], [place] Chloride [Moles/Vol] 98 mmol/L Normal 98-107 [facility] Comment on above: Order Comment: No: D o not add to previous draw Performed By: #### 6 2586 #### [facility] [address] [place] [address], [place] CO2 [Moles/Vol] 25 mmol/L Normal 21-31 [facility] Comment on above: Order Comment: No: D o not add to previous draw Performed By: #### 6 2586 #### [facility] [address] [place] [address], [place] Creatinine [Mass/Vol] 1.26 mg/dL Normal 0.70-1.30 [facility] Comment on above: Order Comment: No: D o not add to previous draw Performed By: #### 6 2586 #### [facility] [address] [place] [address], [place] GFR/1.73 sq M predicted among blacks MDRD (S/P/Bld) [Vol rate/Area] mL/min/{1.73_m2} Normal >60 [facility] Comment on above: Order Comment: No: D o not add to previous draw Result Comment: Calc ulation may not be valid for patients over 70 years Performed By: #### 6 2586 #### [facility] [address] [place] [address], [place] GFR/1.73 sq M predicted among non-blacks MDRD (S/P/Bld) [Vol rate/Area] 56 ml/min/1.73sq m Abnormal >60 [facility] Comment on above: Order Comment: No: D o not add to previous draw Result Comment: Calc ulation may not be valid for patients over 70 years Performed By: #### 6 2586 #### [facility] [address] [place] [address], [place] Glucose [Mass/Vol] 123 mg/dL High 70-100 [facility] Comment on above: Order Comment: No: D o not add to previous draw Performed By: #### 6 2586 #### [facility] [address] [place] [address], [place] Potassium [Moles/Vol] 3.6 mmol/L Normal 3.5-5.1 [facility] Comment on above: Order Comment: No: D o not add to previous draw Performed By: #### 6 2586 #### [facility] [address] [place] [address], [place] Sodium [Moles/Vol] 129 mmol/L Low 136-145 [facility] Comment on above: Order Comment: No: D o not add to previous draw Performed By: #### 6 2586 #### [facility] [address] [place] [address], [facility] Urea nitrogen [Mass/Vol] 14 mg/dL Normal 7-25 [facility] Comment on above: Order Comment: No: D o not add to previous draw Performed By: #### 6 2586 #### [facility] [address] [place] [address], [facility] CBC COMPLETE BLOOD COUNTon 0 - Erythrocyte distribution width (RBC) [Ratio] 14.2 % Normal 11.5-15.0 [facility] Comment on above: Order Comment: No: D o not add to previous draw Performed By: #### 6 2586 #### [facility] [address] [place] [address], [place] Hematocrit (Bld) [Volume fraction] 32.2 % Low 39.0-50.0 [facility] Comment on above: Order Comment: No: D o not add to previous draw Performed By: #### 6 2586 #### [facility] [address] [place] [address], [facility] Hemoglobin (Bld) [Mass/Vol] 10.8 g/dL Low 13.0-17.0 [facility] Comment on above: Order Comment: No: D o not add to previous draw Performed By: #### 6 2586 #### [facility] [address] [place] [address], [facility] MCH (RBC) [Entitic mass] 32.7 pg Normal 27.0-33.0 [facility] Comment on above: Order Comment: No: D o not add to previous draw Performed By: #### 6 2586 #### [facility] [address] [place] [address], [facility] MCHC (RBC) [Mass/Vol] 33.5 g/dL Normal 32.0-35.0 [facility] Comment on above: Order Comment: No: D o not add to previous draw Performed By: #### 6 2586 #### [facility] [address] [place] [id number], [facility] MCV (RBC) [Entitic vol] 97.6 fL Normal 82.0-98.0 [facility] Comment on above: Order Comment: No: D o not add to previous draw Performed By: #### 6 2586 #### [facility] [address] [place] [address], [facility] [facility] Nucleated RBC/100 WBC (Bld) [Ratio] 0 % Normal 0-0 [facility] Comment on above: Order Comment: No: D o not add to previous draw Performed By: #### 6 2586 #### [facility] [address] [place] [address], [facility] PLAT CNT 217 10*3/uL Normal 150-400 [facility] Comment on above: Order Comment: No: D o not add to previous draw Performed By: #### 6 2586 #### [facility] [address] [facility] [place] [address], [facility] RBC (Bld) [#/Vol] 3.30 10*6/uL Low 4.20-5.70 [facility] Comment on above: Order Comment: No: D o not add to previous draw Performed By: #### 6 2586 #### [facility] [address] [facility] [place] [address], [facility] WBC (Bld) [#/Vol] 7.83 10*3/uL Normal 4.00-10.60 [facility] Comment on above: Order Comment: No: D o not add to previous draw Performed By: #### 6 2586 #### [address] ABDOMEN AND PELVIS WO CON TRASTon 04-17-2020 CT ABDOMEN AND PELVIS WO CONTRAST [facility] Department of Radiology [address] [place] [id number] Patient Name: HUY OSEI : 1950 Sex: M Age: Race: White Pt. Location: [id number] Patient Status: O Ordered Date: 04/17/2020 12:55:00 AM Completed Date: 04/17/2020 01:38 AM Requesting Provider: RASHEEDA HAYES Attending Provider: ARON ANDERSON V Report [...] double renal vein, one being circumaortic. Approved by:Alexys Green04/17/2020 1:58 AM. I, Eliud Mcguire,have reviewed the images and reports Electronically signed: Eliud Mcguire. Transcribed by: [email or web address], User Resident: ALEXYS NELSON Electronically Signed by: ELIUD MCGUIRE @ 04/17/2020 02:34 AM I personally read this/these film(s) with this resident Normal [facility] Comment on above: Order Comment: Hemat alyssa, s/p cardiac cath, now hypotensive, r/o retroperitoneal bleed. Cardiovascular Lab Reporton 04-17-2020 Cardiovascular Lab Report [facility] Patient Name: Huy Osei [facility] MR #: [id number] Physician: Aron Daniel of [facility] Medicine Service Date: 04/16/2020 Division of Birthdate: 1950 Cardiology Room #: [id number] Adult Cardiovascular Services [place] [address] Cardiovascular Laboratory Report INDICATION: Huy Osei is a 70-year-old man with complex [...] signed informed consent. He was brought to quality control lab tech in a fasting state. The left groin area was prepped and draped in usual fashion. Using micropuncture technique and ultrasound guidance, the left common femoral artery was accessed. The inner cannula was advanced, limited femoral angiography was performed followed by upsizing to a 5-Tristanian x 11 cm sheath. Left lower extremity angiography was performed down to the level of the foot. A 5-Tristanian UniFlush catheter was advanced and placed in [...] the catheter and access sheath to a 6-Tristanian Renaldo sheath. Using an angled Glidewire mounted [...] retracted and removed and exchanged to a 6-Tristanian x 11 cm sheath. The patient tolerated [...] Anderson M.D. Date Trans: 04/17/2020 06:23 A/noreen [id number] Normal [facility] LACTATE BLOODon 04-17-2020 Lactate [Moles/Vol] 0.9 mmol/L Normal 0.5-2.2 [facility] Comment on above: Order Comment: No: D o not add to previous draw Performed By: #### 6 2586 #### [facility] [address] [place] [address], [facility] PERFUSION BLOOD PANELon 03-25 BASE EXCESS 0.0 mmol/L Normal -2.0-3.0 [facility] Comment on above: Performed By: #### 3 0738 #### [facility] [address] [place] [address], [place] Glucose [Mass/Vol] 118 mg/dL High 70-105 [facility] Comment on above: Performed By: #### 3 0738 #### [facility] [address] [place] [address], [place] Hematocrit (Bld) [Volume fraction] 36 % Low 38-51 [facility] Comment on above: Performed By: #### 3 0738 #### [facility] [address] [place] [address], [place] Hemoglobin (Bld) [Mass/Vol] 12.2 g/dL Normal 12.0-17.0 [facility] Comment on above: Performed By: #### 3 0738 #### [facility] [address] [place] [address], [place] IONIZED CALCIUM 1.23 mmol/L Normal 1.12-1.32 [facility] Comment on above: Performed By: #### 3 0738 #### [facility] [address] [place] [address], [place] Oxygen (Bld) [Partial pressure] 31.0 mm[Hg] Normal [facility] Comment on above: Performed By: #### 3 0738 #### [facility] [address] [place] [address], [place] PCO2 42.2 mmHg Normal 41.0-51.0 [facility] Comment on above: Performed By: #### 3 0738 #### [facility] [address] [place] [address], [place] pH (Bld) 7.38 [pH] Normal 7.31-7.41 [facility] Comment on above: Performed By: #### 3 0738 #### [facility] [address] [place] [address], [place] Potassium [Moles/Vol] 3.9 mmol/L Normal 3.5-4.9 [facility] Comment on above: Performed By: #### 3 0738 #### [facility] [address] [place] [address], [facility] Sodium [Moles/Vol] 132 mmol/L Low 138-146 [facility] Comment on above: Performed By: #### 3 0738 #### [facility] [address] POC GLUCOSE LABon 04-17-2020 Glucose [Mass/Vol] 126 mg/dL High 70-100 [facility] Comment on above: Performed By: #### 8 5499 #### [facility] [address] PROTHROMBIN TIMEon 0 INR Coag (PPP) [Relative time] 1.02 {INR} Normal 0.91-1.16 [facility] Comment on above: Order Comment: This order is a replacement of the rejected order with accession [id number] PATIENT NOT IN ROOM; WENT TO CT. [...] 1995;108:231S-246S. Performed By: #### 6 2586 #### [facility] [address] [facility]. [address] PT Coag (PPP) [Time] 13.4 s Normal 12.3-14.8 [facility] Comment on above: Order Comment: This order is a replacement of the rejected order with accession [id number]- PATIENT NOT IN ROOM; WENT TO CT. Result Comment: ALL RESULTS MUST BE INTERPRETED WITH RESPECT TO BLOOD DRAWING ARTIFACT OR DILUTION ERROR OF ANTICOAGULANT AT THE TIME OF SAMPLING. Performed By: #### 6 2585 #### [facility] [address] [facility]. [address] TROPONIN-Ion 04-17-2020 Troponin I.cardiac [Mass/Vol] 0.01 ng/mL Normal 0.00-0.04 [facility] Comment on above: Order Comment: No: D o not add to previous draw Result Comment: REFE RENCE RANGES: 0.00 - 0.04 ng/ml NORMAL 0.05 - 0.50 ng/ml INDETERMINATE > 0.50 ng/ml CONSISTENT WITH AN M.I. Performed By: #### 6 2585 #### [facility] [address] TYPE AND SCREENon 04-17-2020 ABO INTERPRETATION A Normal [facility] Comment on above: Performed By: #### 0 2024 #### [facility] [address] [facility]. [address] RH INTERPRETATION Positive Normal [facility] Comment on above: Performed By: #### 0 2024 #### [facility] [address] C REACTIVE PROTEINon 020 CRP [Mass/Vol] 13.5 mg/L High 0.0-7.0 [facility] Comment on above: Performed By: #### 0 2024 #### [facility] [address] CBC W/DIFFon 12-12-2019 ABS BASOPHILS 0.1 10*3/uL Normal 0.0-0.2 [facility] Comment on above: Performed By: #### 5 010, [id number] #### [facility] [address] [facility] [place] [address], [facility] ABS IMM GRANS 0.1 10*3/uL Normal 0.0-0.2 [facility] Comment on above: Performed By: #### 5 010, 19866 #### [facility] [address] ABS NEUTROPHILS 4.3 10*3/uL Normal 1.6-7.6 [facility] Comment on above: Performed By: #### 5 102, 30900 #### [facility] [address] [facility]. [address] Basophils/100 WBC (Bld) 0.8 % Normal 0.0-1.0 [facility] Comment on above: Performed By: #### 5 102, 41682 #### [facility] [address] [place] [address], [facility] Eosinophils (Bld) [#/Vol] 0.3 10*3/uL Normal 0.0-0.5 [facility] Comment on above: Performed By: #### 5 102, 26494 #### [facility] [address] [facility] [place] [address], [facility] Eosinophils/100 WBC (Bld) 4.6 % Normal 0.0-6.0 [facility] Comment on above: Performed By: #### 5 102, 64863 #### [facility] [address] [facility]. [address] Erythrocyte distribution width (RBC) [Ratio] 14.0 % Normal 11.5-15.0 [facility] Comment on above: Performed By: #### 5 102, 10675 #### [facility] [address] [place] [address], [facility] Hematocrit (Bld) [Volume fraction] 36.9 % Low 39.0-50.0 [facility] Comment on above: Performed By: #### 102, 53108 #### [facility] [address] [place] [address], [facility] Hemoglobin (Bld) [Mass/Vol] 12.2 g/dL Low 13.0-17.0 [facility] Comment on above: Performed By: #### 102, 59986 #### [facility] [address] [facility] [place] [address], [facility] IMMATURE GRANS 0.9 % Normal 0.0-1.0 [facility] Comment on above: Performed By: #### 102, 85614 #### [facility] [address] [facility] [place] [address], [facility] Lymphocytes (Bld) [#/Vol] 1.0 10*3/uL Low 1.2-4.0 [facility] Comment on above: Performed By: #### 5 102, 62813 #### [facility] [address] [facility] [place] [address], [facility] Lymphocytes/100 WBC (Bld) 15.5 % Low 20.0-45.0 [facility] Comment on above: Performed By: #### 102, 01197 #### [facility] [address] [facility] [place] [address], [facility] MCH (RBC) [Entitic mass] 30.9 pg Normal 27.0-33.0 [facility] Comment on above: Performed By: #### 102, 10025 #### [facility] [address] [place] [address], [facility] MCHC (RBC) [Mass/Vol] 33.1 g/dL Normal 32.0-35.0 [facility] Comment on above: Performed By: #### 5 102, 62639 #### [facility] [address] [place] [address], [facility] MCV (RBC) [Entitic vol] 93.4 fL Normal 82.0-98.0 T [facility] Comment on above: Performed By: #### 5 102, 17194 #### [facility] [address] [facility] [place] [address], [facility] Monocytes (Bld) [#/Vol] 0.7 10*3/uL Normal 0.1-1.0 [facility] Comment on above: Performed By: #### 5 102, 54528 #### [facility] [address] [facility] [place] [address], [facility] MONOS 10.3 % Normal 5.0-12.0 [facility] Comment on above: Performed By: #### 5 102, 96089 #### [facility] [address] [facility] [place] [address], [facility] Neutrophils/100 WBC (Bld) 67.9 % Normal 40.0-72.0 [facility] Comment on above: Performed By: #### 5 102, 29461 #### [facility] [address] [facility] [place] [address], [facility] Nucleated RBC/100 WBC (Bld) [Ratio] 0 % Normal 0-0 [facility] Comment on above: Performed By: #### 5 102, 99097 #### [facility] [address] [facility] [place] [address], [facility] PLAT CNT 215 10*3/uL Normal 150-400 [facility] Comment on above: Performed By: #### 5 102, 48945 #### [facility] [address] [place] [address], [facility] RBC (Bld) [#/Vol] 3.95 10*6/uL Low 4.20-5.70 [facility] Comment on above: Performed By: #### 5 0103, 47756 #### [facility] [address] WBC (Bld) [#/Vol] 6.33 10*3/uL Normal 4.00-10.60 [facility] Comment on above: Performed By: #### 5 0103, 50753 #### [facility] [address] SEDIMENTATION RATEon 020 SED RATE 30 mm/hr High 0-10 [facility] Comment on above: Performed By: #### 0 2024 #### [facility] [address] Operative Reporton 0 Operative Report MR#: [id number] [facility] Pt. Name: Huy Osei Room #: 0C Discharge Date: Birthdate: 1950 OPERATIVE REPORT DATE OF SURGERY: 11/26/2019 SURGEON: Andrews Collier M.D. ASSISTANTS: 1. Ezra Padilla M.D. [...] edges using a scalpel followed by a Milo and curette. We debrided down to the [...] regarding the patient's care. Electronically Signed by: Andrews Collier M.D. 12/09/2019 11:01 A Andrews Collier M.D. I was present for the entire procedure. Date Dict: 11/26/2019/12:51 P/Jose Manuel Waddell MD Date Trans: 11/26/2019 11:48 P/noreen [id number] Normal [facility] APTTon 11-26-2019 aPTT Coag (Bld) [Time] 29.8 s Normal 25.0-35.0 Th e [facility] Comment on above: Result Comment: [...] PURPOSE. Performed By: #### 0 2024 #### [facility] [address] POC GLUCOSE LABon 11-26-2019 Glucose [Mass/Vol] 100 mg/dL Normal 70-100 [facility] Comment on above: Performed By: #### 8 6002 #### [facility] [address] [facility]. [address] PROTHROMBIN TIMEon 0 INR Coag (PPP) [Relative time] 0.99 {INR} Normal 0.91-1.16 [facility] Comment on above: Result Comment: ACCC P [...] 1995;108:231S-246S. Performed By: #### 0 2024 #### [facility] [address] [place] [address], [facility] PT Coag (PPP) [Time] 13.1 s Normal 12.3-14.8 [facility] Comment on above: Result Comment: ALL RESULTS MUST BE INTERPRETED WITH RESPECT TO BLOOD DRAWING ARTIFACT OR DILUTION ERROR OF ANTICOAGULANT AT THE TIME OF SAMPLING. Performed By: #### 0 2024 #### [facility] [address] [place] [address], [facility] VANCOMYCIN TROUGHon 11-12-19 VANCOMYCIN TROU 9.0 mcg/mL Normal 5.0-20.0 [facility] Comment on above: Performed By: #### 0 2024 #### [facility] [address] [facility] [address] BASIC METABOLIC PANELon 10-24 Calcium [Mass/Vol] 9.1 mg/dL Normal 8.6-10.3 [facility] Comment on above: Order Comment: Yes: Add to Previous draw if able Performed By: #### 0 2024 #### [facility] [address] [facility] [place] [address], [facility] Chloride [Moles/Vol] 100 mmol/L Normal 98-107 [facility] Comment on above: Order Comment: Yes: Add to Previous draw if able Performed By: #### 0 2024 #### [facility] [address] [facility] [place] [address], [facility] CO2 [Moles/Vol] 26 mmol/L Normal 21-31 [facility] Comment on above: Order Comment: Yes: Add to Previous draw if able Performed By: #### 0 2024 #### [facility] [address] [place] [address], [facility] Creatinine [Mass/Vol] 1.22 mg/dL Normal 0.70-1.30 [facility] Comment on above: Order Comment: Yes: Add to Previous draw if able Performed By: #### 0 2024 #### [facility] [address] [place] [address], [place] GFR/1.73 sq M predicted among blacks MDRD (S/P/Bld) [Vol rate/Area] mL/min/{1.73_m2} Normal >60 [facility] Comment on above: Order Comment: Yes: Add to Previous draw if able Result Comment: Calc ulation may not be valid for patients over 70 years Performed By: #### 0 2024 #### [facility] [address] [place] [address], [place] GFR/1.73 sq M predicted among non-blacks MDRD (S/P/Bld) [Vol rate/Area] 59 ml/min/1.73sq m Abnormal >60 [facility] Comment on above: Order Comment: Yes: Add to Previous draw if able Result Comment: Calc ulation may not be valid for patients over 70 years Performed By: #### 0 2024 #### [facility] [address] [place] [address], [place] Glucose [Mass/Vol] 97 mg/dL Normal 70-100 [facility] Comment on above: Order Comment: Yes: Add to Previous draw if able Performed By: #### 2024 #### [facility] [address] [place] [address], [place] Potassium [Moles/Vol] 4.0 mmol/L Normal 3.5-5.1 [facility] Comment on above: Order Comment: Yes: Add to Previous draw if able Performed By: #### 0 2024 #### [facility] [address] [place] [address], [place] Sodium [Moles/Vol] 132 mmol/L Low 136-145 [facility] Comment on above: Order Comment: Yes: Add to Previous draw if able Performed By: #### 0 2024 #### [facility] [address] [place] [address], [place] Urea nitrogen [Mass/Vol] 17 mg/dL Normal 7-25 [facility] Comment on above: Order Comment: Yes: Add to Previous draw if able Performed By: #### 0 2024 #### [facility] [address] [place] [id number], [facility] CBC COMPLETE BLOOD COUNTon 0 - Erythrocyte distribution width (RBC) [Ratio] 14.2 % Normal 11.5-15.0 [facility] Comment on above: Order Comment: Yes: Add to Previous draw if able Performed By: #### 6 6 #### [facility] [address] [place] [address], [facility] Hematocrit (Bld) [Volume fraction] 32.5 % Low 39.0-50.0 [facility] Comment on above: Order Comment: Yes: Add to Previous draw if able Performed By: #### 6 6 #### [facility] [address] [place] [address], [facility] Hemoglobin (Bld) [Mass/Vol] 10.4 g/dL Low 13.0-17.0 [facility] Comment on above: Order Comment: Yes: Add to Previous draw if able Performed By: #### 6 2586 #### [facility] [address] [place] [id number], [facility] MCH (RBC) [Entitic mass] 31.7 pg Normal 27.0-33.0 [facility] Comment on above: Order Comment: Yes: Add to Previous draw if able Performed By: #### 6 6 #### [facility] [address] [place] [id number], [facility] MCHC (RBC) [Mass/Vol] 32.0 g/dL Normal 32.0-35.0 [facility] Comment on above: Order Comment: Yes: Add to Previous draw if able Performed By: #### 6 6 #### [facility] [address] [place] [address], [facility] MCV (RBC) [Entitic vol] 99.1 fL High 82.0-98.0 T [facility] Comment on above: Order Comment: Yes: Add to Previous draw if able Performed By: #### 6 2586 #### [facility] [address] [place] [address], [facility] Nucleated RBC/100 WBC (Bld) [Ratio] 0 % Normal 0-0 [facility] Comment on above: Order Comment: Yes: Add to Previous draw if able Performed By: #### 6 2586 #### [facility] [address] [place] [address], [facility] PLAT CNT 231 10*3/uL Normal 150-400 [facility] Comment on above: Order Comment: Yes: Add to Previous draw if able Performed By: #### 6 2586 #### [facility] [address] [facility] [place] [address], [facility] RBC (Bld) [#/Vol] 3.28 10*6/uL Low 4.20-5.70 [facility] Comment on above: Order Comment: Yes: Add to Previous draw if able Performed By: #### 6 2586 #### [facility] [address] [facility] [place] [address], [facility] WBC (Bld) [#/Vol] 8.34 10*3/uL Normal 4.00-10.60 [facility] Comment on above: Order Comment: Yes: Add to Previous draw if able Performed By: #### 6 2586 #### [facility] [address] Operative Reporton 0 Operative Report MR#: [id number] [facility] Pt. Name: Huy Osei Room #: [id number] Discharge Date: Birthdate: 1950 OPERATIVE REPORT DATE OF SURGERY: 11/10/2019 SURGEON: Andrews Collier M.D. REAL ESTATE LEASING AGENT: Jose Charles MD PREOPERATIVE DIAGNOSIS: Right knee [...] week for wound evaluation. Electronically Signed by: Andrews Collier M.D. 11/13/2019 02:04 P Andrews Collier M.D. I was present for the mast and critical portions and I was otherwise immediately available to assist. Date Dict: 11/11/201908:28 Soto/Jose Charles MD Date Trans: 11/11/2019 09:49 A/noreen [id number] cc: Andrews Collier M.D. [address] [facility] [place] [facility] [place] [address] Normal [facility] *ANAEROBIC CULTUREon *ANAEROBIC CULTURE Clinical Report: (D) Specimen/Source: TISSUE/INTRAOP SPEC Collected: 11/10/2019 08:50 Status: Final Last Updated: 11/15/2019 07:46 (1) #3 R. KNEE SYNOVIUM #2 CULT RES (Final) No Anaerobes Isolated 5 Days Normal [facility] Comment on above: Order Comment: #3 R. KNEE SYNOVIUM #2 Performed By: #### 8 6002 #### [facility] [address] [facility]. [address] *ANAEROBIC CULTURE Clinical Report: (D) Specimen/Source: TISSUE/INTRAOP SPEC Collected: 11/10/2019 08:44 Status: Final Last Updated: 11/15/2019 07:46 (1) #2 R. KNEE SYNOVIUM #1 CULT RES (Final) No Anaerobes Isolated 5 Days Normal [facility] Comment on above: Order Comment: #2 R. KNEE SYNOVIUM #1 Performed By: #### 3 0312 #### [facility] [address] *ANAEROBIC CULTURE Clinical Report: (D) Specimen/Source: SWAB/INTRAOP SPEC Collected: 11/10/2019 08:43 Status: Final Last Updated: 11/15/2019 07:46 (1) #1 R. KNEE SYNOVIAL FLUID ON SWAB CULT RES (Final) No Anaerobes Isolated 5 Days Normal [facility] Comment on above: Order Comment: #1 R. KNEE SYNOVIAL FLUID ON SWAB Performed By: #### 8 6002 #### [facility] [address] *BODY FLUID CULTUREon 2019 *BODY FLUID CULTURE Clinical Report: (D) Specimen/Source: FLUID/INTRAOP SPEC Collected: 11/10/2019 08:43 Status: Final Last Updated: 11/15/2019 10:58 (1) #1 R. KNEE SYNOVIAL FLUID ON SWAB GRAM (Final) Rare Polys No Bacteria Seen CULT RES (Final) No Growth Day 5 Normal [facility] Comment on above: Order Comment: #1 R. KNEE SYNOVIAL FLUID ON SWAB Performed By: #### 8 6002 #### [facility] [address] *TISSUE CULTUREon 11-10-2019 *TISSUE CULTURE Clinical Report: (D) Specimen/Source: TISSUE/INTRAOP SPEC Collected: 11/10/2019 08:50 Status: Final Last Updated: 11/15/2019 10:59 (1) #3 R. KNEE SYNOVIUM #2 GRAM (Final) Rare Polys No Bacteria Seen CULT RES (Final) No Growth Day 5 Normal [facility] Comment on above: Order Comment: #3 R. KNEE SYNOVIUM #2 Performed By: #### 8 6002 #### [facility] [address] *TISSUE CULTURE Clinical Report: (D) Specimen/Source: TISSUE/INTRAOP SPEC Collected: 11/10/2019 08:44 Status: Final Last Updated: 11/15/2019 10:58 (1) #2 R. KNEE SYNOVIUM #1 GRAM (Final) Rare Polys No Bacteria Seen CULT RES (Final) No Growth Day 5 Normal [facility] Comment on above: Order Comment: #2 R. KNEE SYNOVIUM #1 Performed By: #### 8 6002 #### [facility] [address] POC GLUCOSE LABon 11-10-2019 Glucose [Mass/Vol] 100 mg/dL Normal 70-100 [facility] Comment on above: Performed By: #### 8 6002 #### [facility] [address] [place] [address], [facility] TYPE AND SCREENon 11-10-2019 ABO INTERPRETATION A Normal [facility] Comment on above: Performed By: #### 6 2586 #### [facility] [address] [place] [address], [facility] RH INTERPRETATION Positive Normal [facility] Comment on above: Performed By: #### 6 2586 #### [facility] [address] [place] [address], [facility] *MRSA/MSSA DNA NASALon 11-09 *MRSA/MSSA DNA NASAL Clinical Report: (D ) Specimen: NASAL SWAB Collected: 11/09/2019 19:00 Status: Final Last Updated: 11/10/2019 13:15 MSSA DNA (Final) Negative MRSA DNA (Final) Methicillin Resistant Staphylococcus aureus DNA Detected Normal [facility] Comment on above: Performed By: #### 8 6002 #### [facility] [address] [place] [address], [facility] APTTon 11-09-2019 aPTT Coag (Bld) [Time] 29.3 s Normal 25.0-35.0 Th e [facility] Comment on above: Result Comment: [...] PURPOSE. Performed By: #### 6 2586 #### [facility] [address] [place] [address], [facility] BASIC METABOLIC PANELon 10-24 Calcium [Mass/Vol] 9.0 mg/dL Normal 8.6-10.3 [facility] Comment on above: Performed By: #### 0 0071 #### [facility] [address] [place] [address], [facility] Chloride [Moles/Vol] 94 mmol/L Low 98-107 [facility] Comment on above: Performed By: #### 0 0071 #### [facility] [address] [place], [place] [address], [facility] CO2 [Moles/Vol] 26 mmol/L Normal 21-31 [facility] Comment on above: Performed By: #### 0 0071 #### [facility] [address] [place] [address], [facility] Creatinine [Mass/Vol] 1.40 mg/dL High 0.70-1.30 [facility] Comment on above: Performed By: #### 0 0071 #### [facility] [address] [place] [address], [facility] GFR/1.73 sq M predicted among blacks MDRD (S/P/Bld) [Vol rate/Area] 60 ml/min/1.73sq m Abnormal >60 [facility] Comment on above: Result Comment: Calc ulation may not be valid for patients over 70 years Performed By: #### 0 0071 #### [facility] [address] [address], [facility] GFR/1.73 sq M predicted among non-blacks MDRD (S/P/Bld) [Vol rate/Area] 50 ml/min/1.73sq m Abnormal >60 [facility] Comment on above: Result Comment: Calc ulation may not be valid for patients over 70 years Performed By: #### 0 0071 #### [facility] [address] [place] [address], [place] Glucose [Mass/Vol] 106 mg/dL High 70-100 [facility] Comment on above: Performed By: #### 0 0071 #### [facility] [address] [place] [address], [place] Potassium [Moles/Vol] 3.9 mmol/L Normal 3.5-5.1 [facility] Comment on above: Performed By: #### 0 0071 #### [facility] [address] Sodium [Moles/Vol] 128 mmol/L Low 136-145 [facility] Comment on above: Performed By: #### 0 0071 #### [facility] [address] Urea nitrogen [Mass/Vol] 18 mg/dL Normal 7-25 [facility] Comment on above: Performed By: #### 0 1 #### [facility] [address] CBC W/DIFFon 11-09-2019 ABS BASOPHILS 0.0 10*3/uL Normal 0.0-0.2 [facility] Comment on above: Performed By: #### 6 2586 #### [facility] [address] ABS IMM GRANS 0.1 10*3/uL Normal 0.0-0.2 [facility] Comment on above: Performed By: #### 6 2586 #### [facility] [address] ABS NEUTROPHILS 4.9 10*3/uL Normal 1.6-7.6 [facility] Comment on above: Performed By: #### 6 2586 #### [facility] [address] Basophils/100 WBC (Bld) 0.3 % Normal 0.0-1.0 T [facility] Comment on above: Performed By: #### 6 2586 #### [facility] [address] Eosinophils (Bld) [#/Vol] 0.1 10*3/uL Normal 0.0-0.5 [facility] Comment on above: Performed By: #### 6 2586 #### [facility] [address] [facility] [place] [address], [facility] Eosinophils/100 WBC (Bld) 0.8 % Normal 0.0-6.0 [facility] Comment on above: Performed By: #### 6 2586 #### [facility] [address] [facility] [place] [address], [facility] Erythrocyte distribution width (RBC) [Ratio] 14.0 % Normal 11.5-15.0 [facility] Comment on above: Performed By: #### 6 6 #### [facility] [address] [facility] [place] [address], [facility] Hematocrit (Bld) [Volume fraction] 35.1 % Low 39.0-50.0 [facility] Comment on above: Performed By: #### 6 2586 #### [facility] [address] [facility] [place] [address], [facility] Hemoglobin (Bld) [Mass/Vol] 11.6 g/dL Low 13.0-17.0 [facility] Comment on above: Performed By: #### 6 2586 #### [facility] [address] [place] [address], [facility] IMMATURE GRANS 0.9 % Normal 0.0-1.0 [facility] Comment on above: Performed By: #### 6 2586 #### [facility] [address] [facility] [place] [address], [facility] Lymphocytes (Bld) [#/Vol] 0.7 10*3/uL Low 1.2-4.0 [facility] Comment on above: Performed By: #### 6 2586 #### [facility] [address] [place] [address], [facility] Lymphocytes/100 WBC (Bld) 11.2 % Low 20.0-45.0 [facility] Comment on above: Performed By: #### 6 2586 #### [facility] [address] [place] [address], [facility] MCH (RBC) [Entitic mass] 31.4 pg Normal 27.0-33.0 [facility] Comment on above: Performed By: #### 6 2586 #### [facility] [address] [facility] [place] [id number], [facility] MCHC (RBC) [Mass/Vol] 33.0 g/dL Normal 32.0-35.0 [facility] Comment on above: Performed By: #### 6 2586 #### [facility] [address] [facility] [place] [address], [facility] MCV (RBC) [Entitic vol] 95.1 fL Normal 82.0-98.0 T [facility] Comment on above: Performed By: #### 6 2586 #### [facility] [address] [facility] [place] [address], [facility] Monocytes (Bld) [#/Vol] 0.8 10*3/uL Normal 0.1-1.0 [facility] Comment on above: Performed By: #### 6 2586 #### [facility] [address] [facility]. [address] MONOS 12.4 % High 5.0-12.0 [facility] Comment on above: Performed By: #### 6 2586 #### [facility] [address] [facility] [place] [address], [facility] Neutrophils/100 WBC (Bld) 74.4 % High 40.0-72.0 [facility] Comment on above: Performed By: #### 6 2586 #### [facility] [address] [facility] [place] [address], [facility] Nucleated RBC/100 WBC (Bld) [Ratio] 0 % Normal 0-0 [facility] Comment on above: Performed By: #### 6 2586 #### [facility] [address] PLAT CNT 233 10*3/uL Normal 150-400 [facility] Comment on above: Performed By: #### 6 2586 #### [place] [address], [facility] RBC (Bld) [#/Vol] 3.69 10*6/uL Low 4.20-5.70 [facility] Comment on above: Performed By: #### 6 2586 #### [facility] [address] [place] [address], [facility] WBC (Bld) [#/Vol] 6.54 10*3/uL Normal 4.00-10.60 [facility] Comment on above: Performed By: #### 6 2586 #### [address] KNEE RIGHT 3 Son 0 KNEE RIGHT 3 S [facility] Department of Radiology [address] [place] [address] [phone] Patient Name: HUY OSEI : 1950 Sex: M Age: Race: White Pt. Location: Patient Status: O Ordered Date: 11/09/2019 6:50:00 PM Completed Date: 11/09/2019 07:18 PM Requesting Provider: ANDREWS COLLIER Attending Provider: ANDREWS COLLIER Report Copy To: Signs & Symptoms: M00.9 Pyogenic arthritis, unspecified I10 History: Carol Comments: , Views (X-RAY, KNEE): Radiologic Protocol , Weight Bearing?: Y , Views (X-RAY, KNEE): Radiologic Protocol , Weight Bearing?: Y , , , Ordering Provider - ANDREWS COLLIER MD , Exam: KNEE RIGHT 3 [...] Y , , , Ordering Provider - ANDREWS COLLIER MD , PROTOCOL: AP,Lateral and sunrise [...] reports Electronically signed: Galen Kruse. Transcribed by: [email or web address], User Resident: TONYA COPE Electronically Signed by: GALEN KRUSE @ 11/10/2019 09:54 AM I personally read this/these film(s) with this resident Normal [facility] Comment on above: Order Comment: , Glynn ws (X-RAY, KNEE): Radiologic Protocol , Weight Bearing?: Y , Views (X-RAY, KNEE): Radiologic Protocol , Weight Bearing?: Y , , , Ordering Provider - ANDREWS COLLIER MD , PROTHROMBIN TIMEon 0 INR Coag (PPP) [Relative time] 0.99 {INR} Normal 0.91-1.16 [facility] Comment on above: Result Comment: ACCC P [...] 1995;108:231S-246S. Performed By: #### 6 2586 #### [facility] [address] PT Coag (PPP) [Time] 13.1 s Normal 12.3-14.8 [facility] Comment on above: Result Comment: ALL RESULTS MUST BE INTERPRETED WITH RESPECT TO BLOOD DRAWING ARTIFACT OR DILUTION ERROR OF ANTICOAGULANT AT THE TIME OF SAMPLING. Performed By: #### 6 2586 #### [facility] [address] [facility] [place] [address], [facility] RBC'S 2 UNITSon 11-09-2019 CROSSMATCH INTERP 1 COMP Normal [facility] Comment on above: Performed By: #### 8 6002 #### [facility] [address] [place] [address], [place] CROSSMATCH INTERP 2 COMP Normal [facility] Comment on above: Performed By: #### 8 6002 #### [facility] [address] [place] [address], [place] PRODUCT CODE 1 E0336 Normal [facility] Comment on above: Performed By: #### 8 6002 #### [facility] [address] [place] [address], [place] PRODUCT CODE 2 E0336 Normal [facility] Comment on above: Performed By: #### 8 6002 #### [facility] [address] [place] [address], [place] PRODUCT STATUS 1 RE Normal [facility] Comment on above: Result Comment: Resu lt changed by IF on 11/14/2019 06:36. The previous value was XM. Performed By: #### 8 6002 #### [facility] [address] [place] [address], [place] PRODUCT STATUS 2 RE Normal [facility] Comment on above: Result Comment: Resu lt changed by IF on 11/14/2019 06:36. The previous value was XM. Performed By: #### 8 6002 #### [facility] [address] [place] [address], [place] UNIT ABO 1 A Normal [facility] Comment on above: Performed By: #### 8 6002 #### [facility] [address] [place] [address], [place] UNIT ABO 2 A Normal [facility] Comment on above: Performed By: #### 8 6002 #### [facility] [address] [place] [address], [place] UNIT ID 1 [id number] Normal [facility] Comment on above: Performed By: #### 8 6002 #### [facility] [address] [place] [address], [facility] UNIT ID 2 [id number] Normal [facility] Comment on above: Performed By: #### 8 6002 #### [facility] [address] [place] [address], [facility] UNIT RH 1 Positive Normal [facility] Comment on above: Performed By: #### 8 6002 #### [facility] [address] [place] [address], [place] UNIT RH 2 Positive Normal [facility] Comment on above: Performed By: #### 8 6002 #### [facility] [address] [place] [address], [facility] Vital Signs Date Time Vital Sign Value Performing Clinician Facility 09-04-2024 09:32-0500 Body height 177.8 cm [facility] 09-04-2024 09:32-0500 Body mass index (BMI) [Ratio] 30.8 kg/m2 [facility] 09-04-2024 09:32-0500 Body temperature 98.2 [degF] [facility] 09-04-2024 09:32-0500 Body weight 97.52 kg [facility] 09-04-2024 09:32-0500 Diastolic blood pressure 65 mm[Hg] [facility] 09-04-2024 09:32-0500 Heart rate 73 /min [facility] 09-04-2024 09:32-0500 Respiratory rate 18 /min [facility] 09-04-2024 09:32-0500 SaO2% (BldA) [Mass fraction] 97 % [facility] 09-04-2024 09:32-0500 Systolic blood pressure 129 mm[Hg] [facility] 08-15-2024 11:08-0400 Body height 177.8 cm Pool Garcia MD Work Phone: [facility] 08-15-2024 11:08-0400 Body mass index (BMI) [Ratio] 30.28 kg/m2 Pool Garcia MD Work Phone: [facility] 08-15-2024 11:08-0400 Body temperature 97.5 [degF] Pool Garcia MD Work Phone: [facility] 08-15-2024 11:08-0400 Body weight 95.71 kg Pool Garcia MD Work Phone: [facility] 08-15-2024 11:08-0400 Diastolic blood pressure 54 mm[Hg] Pool Garcia MD Work Phone: [facility] 08-15-2024 11:08-0400 Heart rate 70 /min Pool Garcia MD Work Phone: [facility] 08-15-2024 11:08-0400 Respiratory rate 18 /min Pool Garcia MD Work Phone: [facility] 08-15-2024 11:08-0400 SaO2% (BldA) [Mass fraction] 96 % Pool Garcia MD Work Phone: [facility] 08-15-2024 11:08-0400 Systolic blood pressure 110 mm[Hg] Pool Garcia MD Work Phone: [facility] 05-24-2023 10:25-0400 Body height 176.53 cm Katiana Kemp Other [facility] Other 05-24-2023 10:25-0400 Body mass index (BMI) [Ratio] 31.2 kg/m2 Katiana Kemp Other [facility] Other 05-24-2023 10:25-0400 Body weight 97.25 kg Katiana Kemp Other [facility] Other 05-24-2023 10:25-0400 Diastolic blood pressure 65 mm[Hg] Katiana Kemp Other [facility] Other 05-24-2023 10:25-0400 Respiratory rate 18 /min Katiana Kemp Other [facility] Other 05-24-2023 10:25-0400 SaO2% (BldA) [Mass fraction] 100 % Katiana Kemp Other [facility] Other 05-24-2023 10:25-0400 Systolic blood pressure 142 mm[Hg] Katiana Kemp Other [facility] Other Encounters Encounter Date Encounter Type Care Provider Facility Start: 09-04-2024 End: 09-04-2024 ambulatory [facility] Work Phone: Start: 09-04-2024 End: 09-04-2024 Patient encounter procedure [facility] Work Phone: Start: 08-15-2024 End: 08-15-2024 Bamboo flowsheet Pool Garcia MD Work Phone: [facility] Start: 08-15-2024 End: 08-15-2024 Bamboo flowsheet Pool Garcia MD Work Phone: [facility] Start: 08-15-2024 End: 08-15-2024 Clinisync Result Encounter Pool Garcia MD Work Phone: [facility] Unsolicited Start: 08-15-2024 End: 08-15-2024 Patient encounter procedure Pool Garcia MD Work Phone: [facility] Start: 08-15-2024 End: 08-15-2024 Postop follow up visit related to original px Pool Garcia MD Work Phone: [facility] Comment on above: Encounter for Medica re annual wellness exam (Primary Dx); Essential hypertension, benign (CMS/HCC); Dyslipidemia (CMS/HCC); Screening PSA (prostate specific antigen); Encounter for long-term (current) use of medications; Class 1 obesity due to excess calories with serious comorbidity and body mass index (BMI) of 30.0 to 30.9 in adult; Need for immunization against influenza; Chronic kidney disease, stage 3b (HCC) (CMS/HCC); Chronic obstructive pulmonary disease, unspecified (CMS/HCC); Peripheral vascular disease, unspecified (CMS/HCC) Start: 08-15-2024 End: 08-15-2024 ambulatory POOL GARCIA Not Available Start: 07-13-2024 End: 07-13-[address] [facility] Start: 03-12-2024 End: 03-13-2024 Emergency department patient visit JOANNE GALLEGOS [facility] Start: 12-26-2023 End: 12-26-2023 ambulatory [facility] Start: 05-24-2023 End: 05-24-2023 ambulatory Katiana Kemp Other [facility] Other Start: 05-24-2023 Office outpatient ne w 20 minutes Katiana Kemp [facility] Start: 2023 End: 01-28-2023 ambulatory HEYDI VORA Facility:[facility] Start: 01-13-2023 End: 01-14-[address] POOL GARCIA Facility:[facility] Start: 01-11-2023 End: 01-11-2023 ambulatory HEYDI VORA Facility:[facility] Start: 12-07-2022 End: 12-08-[address] [...] 03-03-2022 Encounter for preprocedural cardiovascular examination LEIGHA PEDRAZA . [facility] Start: 03-03-2022 Encounter for preprocedural laboratory examination LEIGHA PEDRAZA . [facility] Start: 03-01-2022 End: 03-02-2022 ambulatory LEIGHA PEDRAZA . Facility: Start: 03-01-2022 End: 03-02-2022 Encounter for preprocedural cardiovascular examination LEIGHA PEDRAZA . Facility: Start: 02-24-2022 End: 02-25-[address] BRADY MORRIS Facility: Start: 08-21-2020 End: 08-22-2020 Patient encounter procedure PROVIDER UNKNOWN Facility:[facility] Start: 05-05-2020 End: 05-06-2020 Patient encounter procedure PROVIDER UNKNOWN Facility:[facility] Start: 04-16-2020 End: 04-17-2020 Patient encounter procedure PROVIDER UNKNOWN Facility:[facility] Start: 11-26-2019 End: 11-27-2019 Patient encounter procedure [place] Facility:[facility] Start: 11-09-2019 End: 11-13-2019 Evaluation and management of inpatient [place] Facility:[facility] Procedures Date Procedure Procedure Detail Performing Clinician Start: 08-15-2024 ALL CBC WITH AUTO DIFF Pool Garcia MD Work Phone: Start: 07-27-[address] SCOTT CHAUHAN . Comment on above: Performed By: #### T SH, BMP #### [facility] [address] [place] [address] [address] Marilin Rothman Start: 04-17-2020 Antibody screen Comment on above: Performed By: #### 0 5 #### [facility] [address] [place], [place] [id number] [place] [address] Start: 11-26-2019 Anes integ extremiti es ant trunk & perineum nos RASHEEDA YORK Start: 11-26-2019 LATE CLOSURE OF WOUND N ABIL EBHARMONY Start: 11-10-2019 EXCISION OF RIGHT KN EE JOINT, OPEN APPROACH ANDREWS SWETA Start: 11-10-2019 Antibody screen Comment on above: Performed By: #### 6 2586 #### [facility] [place] [address], [facility] Plan of Treatment Date Care Activity Detail Author Start: 02-13-2025 End: 02-13-2025 Patient encounter procedure 02/13/2025 9:30 AM EDT Office Visit [facility] [address] [place] [phone] Pool Garcia MD [address] [place] [phone] [facility] Start: 08-15-2024 End: 08-15-2025 Basic metabolic 1998 panel - Serum or Plasma Basic metabolic panel Lab Routine Essential hypertension, benign (CMS/HCC) Expected: 08/15/2024 (Approximate), Expires: 08/15/2025 [facility] Work Phone: Comment on above: Expected: 08/15/2024 (Approximate), Expires: 08/15/2025 Start: 08-15-2024 End: 08-15-2025 CBC W Auto Differential panel - Blood CBC and differential Lab Routine Encounter for long-term (current) use of medications Expected: 08/15/2024 (Approximate), Expires: 08/15/2025 [facility] Comment on above: Expected: 08/15/2024 (Approximate), Expires: 08/15/2025 Start: 08-15-2024 End: 08-15-2025 Hepatic function 2000 panel - Serum or Plasma Hepatic function panel Lab Routine Encounter for long-term (current) use of medications Expected: 08/15/2024 (Approximate), Expires: 08/15/2025 [facility] Comment on above: Expected: 08/15/2024 (Approximate), Expires: 08/15/2025 Start: 08-15-2024 End: 08-15-2025 Lipid 1996 panel - Serum or Plasma Lipid panel Lab Routine Dyslipidemia (CMS/HCC) Expected: 08/15/2024 (Approximate), Expires: 08/15/2025 [facility] Comment on above: Expected: 08/15/2024 (Approximate), Expires: 08/15/2025 Start: 08-15-2024 End: 08-15-2025 Prostate specific Ag [Mass/volume] in Serum or Plasma PSA Lab Routine Screening PSA (prostate specific antigen) Expected: 08/15/2024 (Approximate), Expires: 08/15/2025 [facility] Comment on above: Expected: 08/15/2024 (Approximate), Expires: 08/15/2025 Start: 08-15-2024 End: 08-15-2025 Thyrotropin [Units/volume] in Serum or Plasma TSH Lab Routine Class 1 obesity due to excess calories with serious comorbidity and body mass index (BMI) of 30.0 to 30.9 in adult Expected: 08/15/2024 (Approximate), Expires: 08/15/2025 [facility] Comment on above: Expected: 08/15/2024 (Approximate), Expires: 08/15/2025 Start: 08-15-2024 End: 08-15-2024 Patient encounter procedure 08/15/2024 11:30 AM EDT Office Visit [facility] [address] [place] [phone] Pool Garcia MD [address] [place] [phone] [facility] Comment on above: Arrived Start: 06-24-2024 Influenza vaccination Influenza Vacc ine (#1) [facility] Start: 05-05-2021 Pneumococcal Vaccine : 65+ Years (2 of 2 - PCV) Pneumococcal Vaccine: 65+ Years (2 of 2 - PCV) [facility] Start: 1950 Medicare Annual Wellness (AWV) Medicare Annual Wellness (AWV) [facility] Immunizations Immunization Date Immunization Notes Care Provider Fa cility 08-15-2024 influenza, seasonal, injectable, preservative free Pool Garcia MD Work Phone: [facility] 09-15-2021 influenza virus vacc ine, unspecified formulation Pool Garcia MD Work Phone: [facility] Payers Date Payer Category Payer Medicare (Managed Care) [facility] [id number] 2009 Unknown [id number] 1959 Medicare [id number] 1959 Medicare [id number] 1950 Unknown [id number] 2.16.840.1.215785.3.579.2. 647 1948 Unknown [id number] 2.16.840.1.240261.3.579.2. 647 1948 Unknown [id number] 2.16.840.1.001643.3.579.2. 647 1948 Unknown [id number] 2.16.840.1.572839.3.579.2. 647 1948 Unknown [id number] 2.16.840.1.447214.3.579.2. 647 1948 Unknown [id number] 2.16.840.1.321252.3.579.2. 593 1948 Unknown [id number] 2.16.840.1.684999.3.579.2. 593 1948 Unknown [id number] 2.16.840.1.607492.3.579.2. 593 1948 Unknown [id number] 2.16.840.1.955663.3.579.2. 593 1948 Unknown [id number] 2.16.840.1.681412.3.579.2. 593 1948 Unknown [id number] 2.16.840.1.252593.3.579.2. 593 1948 Unknown [id number] 2.16.840.1.461254.3.579.2. 593 1948 Unknown [id number] 2.16.840.1.296570.3.579.2. 593 1948 Unknown [id number] 2.16.840.1.853231.3.579.2. 593 1948 Unknown [id number] 2.16.840.1.581815.3.579.2. 593 1948 Unknown [id number] 2.16.840.1.761435.3.579.2. 593 1948 Unknown [id number] 2.16.840.1.772958.3.579.2. 175 1950 Unknown [id number] 2.16.840.1.171628.3.579.2. 1259 Medicare [id number] Social History Date Type Detail Facility Start: 02-08-2024 End: 08-15-2024 Sex Assigned At [facility] Tobacco smoking stat [facility] Tobacco smoking consumption unknown [facility] Start: 02-08-2024 End: 08-15-2024 History of Social function [facility] Do you belong to any clubs or organizations such as rastafari groups, unions, fraternal or athletic groups, or school groups? Yes [facility] How often do you att end meetings of the clubs or organizations you belong to? Patient declined [facility] Are you now , , , , never or living with a partner? [facility] How often to you hav e a drink containing alcohol? 4 or more times a week [facility] How many standard dr inks containing alcohol do you have on a typical day? 3 or 4 [facility] How often do you hav e 6 or more drinks on 1 occasion? Monthly [facility] Do you feel stress - tense, restless, nervous, or anxious, or unable to sleep at night because your mind is troubled all the time - these days [OSQ] Not at all [facility] (I/We) worried wheth er (my/our) food would run out before (I/we) got money to buy more. Never true [facility] In the past 12 month s, was there a time when you were not able to pay the mortgage or rent on time? No [facility] Start: 1950 Sex assigned at Not on file [facility] Start: 08-15-2024 Tobacco smoking status NHIS Ex-smoker [facility] History of tobacco use Current smoker [facility] History of tobacco use Cigarette Smoker [facility] Start: 08-15-2024 Tobacco use and exposure Smokeless tobacco non-user [facility] Start: 09-04-2024 Sex Male (finding) [facility] Start: 1950 Sex Assigned At Male [facility] Clinical Notes 10-26-2022 to 08-15-2024 Pool Garcia MD - 08/15/2024 2:58 PM EDTMniraj Garcia MD - 08/15/2024 11:30 AM EDT Note Date & Type Note Facility 08-15-2024 History of Present illness Narrative Associated Problem(s): Encounter for Medicare annual wellness exam Due for labs. Discussed proper diet and regular aerobic exercise. Need aerobic exercise 5-6 days a week for 30 minutes at a time. Smaller portions and limit total calories. Colonoscopy every 10 years. Tetanus every 10 years. Advised not to smoke. Discussed daily Aspirin therapy. Images from the original note were not included. Subjective Patient ID: Huy Osei is a 74 y.o. male who presents for Medicare Annual Wellness Visit Subsequent (Wellness/). Presents for medicare annual wellness visit. Patient feels well today. Weight up 6 pounds over the past year. Tries to stay active and walk several days a week. Tries to watch diet and eat healthy. Increased fruits and vegetables. Smaller portions and limits snacking. Tries to limit total daily calories. Due for labs. Colonoscopy normal 07/29/23. Review of Systems Constitutional: Negative for fatigue. Respiratory: Negative for cough, shortness of breath and wheezing. Cardiovascular: Negative for chest pain and palpitations. Gastrointestinal: Negative for abdominal pain, diarrhea, nausea and vomiting. Genitourinary: Negative for dysuria. Objective Physical Exam Constitutional: General: He is not in acute distress. Appearance: Normal appearance. HENT: Head: Normocephalic. Right Ear: Tympanic membrane and ear canal normal. Left Ear: Tympanic membrane and ear canal normal. Eyes: Extraocular Movements: Extraocular movements intact. Pupils: Pupils are equal, round, and reactive to light. Cardiovascular: Rate and Rhythm: Normal rate and regular rhythm. Heart sounds: No murmur heard. No friction rub. No gallop. Pulmonary: Breath sounds: Normal breath sounds. No wheezing, rhonchi or rales. Abdominal: General: Bowel sounds are normal. There is no distension. Palpations: Abdomen is soft. Tenderness: There is no abdominal tenderness. There is no guarding or rebound. Musculoskeletal: General: Normal range of motion. Left lower leg: No edema. Neurological: General: No focal deficit present. Mental Status: He is alert. Cranial Nerves: No cranial nerve deficit. Deep Tendon Reflexes: Reflexes normal. Assessment/Plan Problem List Items Addressed This Visit Essential hypertension, benign (CMS/HCC) Relevant Orders Basic metabolic panel Dyslipidemia (CMS/HCC) Relevant Orders Lipid panel Encounter for Medicare annual wellness exam - Primary Due for labs. Discussed proper diet and regular aerobic exercise. Need aerobic exercise 5-6 days a week for 30 minutes at a time. Smaller portions and limit total calories. Colonoscopy every 10 years. Tetanus every 10 years. Advised not to smoke. Discussed daily Aspirin therapy. Screening PSA (prostate specific antigen) Relevant Orders PSA Other Visit Diagnoses Encounter for long-term (current) use of medications Relevant Orders CBC and differential Hepatic function panel Class 1 obesity due to excess calories with serious comorbidity and body mass index (BMI) of 30.0 to 30.9 in adult Relevant Orders TSH Need for immunization against influenza Relevant Orders Flu vaccine greater than or equal to 3 years old, preservative free IM (Completed) documented in this encounter [facility] 07-13-2024 Note Reviewed ABIs with p atient and they are normal no concerns for significant arterial stenosis Continue Lipitor, and regular exercise [facility] 07-13-2024 Note Lipid abnormalities are unchanged. Follow-up with PCP for annual blood testing Continue atorvastatin 80 mg daily and reviewed his lipid profile is well-controlled and liver function was normal Pharmacotherapy as ordered. Lipids will be reassessed in 1 year. [facility] 07-13-2024 Note Hypertension is unch anged. Continue Norvasc, losartan and Toprol Continue current treatment regimen. Continue current medications. Blood pressure will be reassessed at the next regular appointment. [facility] 07-13-2024 Note Coronary artery dise ase is unchanged. Remained stable no concerning symptoms Continue Plavix, Toprol and Lipitor Currently cholesterol levels are well-controlled and liver functions normal Continue current treatment regimen. Regular aerobic exercise. Continue current medications. Cardiac status will be reassessed in 1 year. [facility] 07-13-2024 Note [facility] CARDI[facility]Y PROGR ESS NOTE HPI: Huy Osei is a 74 y.o. male here [...] Previous HPI per Dr Anderson 12/2023 HPI Huy is seen in follow-up on CAD, PAD [...] DAY IN THE MORNING 90 tablet 3 pmbidbgjarh-ofjjwqvmw-ixxyjitt 100-62.5-25 mcg blister with device Inhale 1 [...] 122. Imaging a (more content not included)... [facility] 07-13-2024 Note Pt here for six cecelia h follow up. Pt denies chest pain, sob, palpatations. Review of Systems HENT: Positive for tinnitus. Cardiovascular: Positive for dyspnea on exertion. Musculoskeletal: Positive for arthritis, back pain, joint pain and myalgias. All other systems reviewed and are negative. [facility] 12-26-2023 Note [facility] Subjective Huy Osei is a 73 y.o. year old [...] Substance Use Topics Alcohol use: Yes Comment: santosh Mckeon is seen in follow-up on CAD, PAD and hypertension and hyperlipidemia. He is a 73-year-old man with history of coronary artery disease that is mild to moderate by cardiac catheterization in 2019 for which she has been maintained on [...] THE MORNING, Disp: 90 tablet, Rfl: 3 dvjhqvjnicn-kmcemyvbo-rfkpsxcg 100-62.5-25 mcg blister with device, Inhale 1 [...] Rate 05/05/2020 79 Atrial Rate 05/05/2020 79 UT Interval 05/05/2020 148 QRS DURATION 05/05/2020 84 QT Interval 05/05/2020 386 QTC CALCULATION(BEZET) 05/05/2020 442 P [place] 05/05/2020 51 R-[place]lin 05/05/2020 32 T Wave [place] 05/05/2020 42 Diagnosis 05/05/2020 Value:Normal sinus rhythm (more content not included)... [facility] 05-24-2023 Evaluation note Encounter Date [...] fever. Patient verbalized understanding of treatment plan. [facility] Other 04-06-2023 NoteCONSULTATION CONSULTATION DATE: 2023 TO: [...] our patients to inform us about any wjut-bvy-dxyxktm medications or herbal remedies/nutritional supplements/alternative remedies. 2. [...] treatment options with their primary care provider.[id number] Note CONSULTATION CONSULTATION DATE: 12/07/2022 CHIEF COMPLAINT: [...] Education was done. CC: Pool Garcia M.D.[facility] [id number] NoteCONSULTATION CONSULTATION DATE: 11/02/2022 PREOPERATIVE DIAGNOSIS: Left [...] will be followed up in the office.[facility] [id number] NoteCONSULTATION CONSULTATION DATE: 10/26/2022 CHIEF COMPLAINT: Low [...] by Dr. Garcia. CC: Pool Garcia M.D.[facility]* Diagnosis Encounter for Medicare annual wellness exam- Primary Essential hypertension, benign (CMS/HCC) Essential hypertension, benign Dyslipidemia (CMS/HCC) Other and unspecified hyperlipidemia Screening PSA (prostate specific antigen) Special screening for malignant neoplasm of prostate Encounter for long-term (current) use of medications Encounter for long-term (current) use of other medications Class 1 obesity due to excess calories with serious comorbidity and body mass index (BMI) of 30.0 to 30.9 in adult Need for immunization against influenza Need for prophylactic vaccination and inoculation against influenza Chronic kidney disease, stage 3b (HCC) (CMS/HCC) Chronic obstructive pulmonary disease, unspecified (CMS/HCC) Peripheral vascular disease, unspecified (CMS/HCC) Peripheral vascular disease, unspecified documented in this encounter [facility] noteNo assessment information availableKettering Health [facility] Work Phone: History general Narrative - Reported* Type Description Date Medical History HTN Medical History hyperlipidemia Medical History PAD Medical History SOB Surgical History right knee arthroscopy Surgical History cataract removal [facility] Other Summary Purpose Family History No Family History Records Found Relationship Condition Age at Onset Recorded Date/T irving father Unknown mother Unknown Advance Directives No Advanced Directives Records Found Advance Directive Response Recorded Date/ Time Advance Directives No September 7:42am Hospital Course Note MR#: [id number] I [facility] Pt. Name: Huy Osei Admitted: 11/09/2019 Discharged: 11/13/2019 Date of : 1950 Physician: Andrews Collier M.D. DISCHARGE SUMMARY PRINCIPAL DIAGNOSIS: Right [...] cocci. The patient was then transferred to [facility] for higher level of care. The patient underwent right knee arthrotomy with irrigation, debridement performed by Dr. Azevedo on November 10, 2019. Postoperatively, the patient did well with pain control and with mobility, including working with physical and occupational therapy. Infectious Disease team was consulted and made recommendations. The patient had a PICC line placed prior to discha (more content not included)... Chief Complaint and Reason for Visit Chief Complaint Admit Date right knee pain, left hand pain September 04, 2024 9:23am Additional Source Comments (unrecognized sect ion and content) No Status Records FoundNo Status Records FoundNo Status Records FoundNo Status Records FoundNo Status Records Found INFORMATION SOURCE (unrecogn ized section and content) DATE CREATED AUTHOR 09/21/2020 [facility] DATE CREATED AUTHOR AUTHOR'S ORGANIZ ATION 02/06/2023 [facility] DATE CREATED AUTHOR AUTHOR'S ORGANIZ ATION 03/17/2024 [facility] DATE CREATED AUTHOR AUTHOR'S ORGANIZ ATION 08/16/2024 [facility] DATE CREATED AUTHOR AUTHOR'S ORGANIZ ATION 09/11/2024 [facility] REASON FOR VISIT (unrecogniz ed section and content) Reason Comments Medicare Annual Wellness Visit [facility] Wellness Care Teams (unrecognized sec tion and content) Scientific Editor Relationship Specialty Start Date End Date Pool Garcia MD [address] [place] [phone] PCP - [facility] 11/24/23 02/21/68 Pool Garcia MD [address] [place] [phone] PCP - General Family Medicine 08/15/24 Scientific Editor Relationship Specialty Start Date End Date Pool Garcia MD [address] [place] [phone] PCP - [facility] 11/24/23 02/21/68 Pool Garcia MD [address] [place] [phone] PCP - General Family Medicine 08/15/24 Scientific Editor Relationship Specialty Start Date End Date Pool Garcia MD [address] [place] [address] PCP - [facility] 11/24/23 02/21/68 Pool Garcia MD [address] [place] [address] PCP - General Family Medicine 08/15/24 Team Status: Active Member Role Status Dates Pool Garcia MD Primary Care Provider Active Team Status: Inactive Member Role Status Dates Pool Garcia MD Primary Care Provider Active S tart: September 04, 2024 End: September 04, 2024 Katiana Kemp APRN Attending Provider Active Start: September 04, 2024 End: September 04, 2024 Goals (unrecognized section and content) Goals may be documented in a n alternate section FOR RECORDS PERTAINING TO PATIENTS WHO ARE [...] BE BASED ON THE PRIMARY CLINICAL RECORDS. [employer] [facility]. provides no warranty or guarantee of the accuracy or completeness of information in this document.
--- NOTE | 2024-12-24 15:08 | ED.LOWEXI1 ---
Documented by User: SCOTTY Luke 12/24/24 18:50 HPI HPI - Extremity Injury (Lower) General Chief Complaint: Extremity Injury, Lower Stated Complaint: FALL; R ANKLE PAIN Time Seen by Provider: 12/24/24 14:47 Source: patient and family () Mode of arrival: Wheelchair History of Present Illness HPI Narrative: 74-year-old male who presents to the emergency department with complaint of right ankle pain, swelling, injury. Injury occurred this past Tuesday when he fell down approximately 7 steps. States he did notice a bump to the top of his head which is no longer present and some bruising near his tailbone region. Denies any tenderness to this region. Only pain he is experiencing is in his ankle. He is on Plavix. Denies any loss of consciousness, neck or back pain, chest pain, abdominal pain, upper extremity pain. has not noted any mental status changes, repetitive speech, confusion. Quality:?Twisting trauma Severity:?Moderate Timing:?As above, constant Context: Normal setting and activity? Modifying factors:?They have been icing it and taking ibuprofen with some relief Associated symptoms: Swelling Related Data Home Medications ?Medication ?Instructions ?Recorded ?Confirmed ascorbic acid (vitamin C) 500 mg mg PO 06/17/23 capsule atorvastatin 80 mg tablet 80 mg PO DAILY 06/17/23 06/17/23 cholecalciferol (vitamin D3) 125 5,000 unit PO DAILY 06/17/23 06/17/23 mcg (5,000 unit) capsule clopidogrel 75 mg tablet 75 mg PO DAILY 06/17/23 06/17/23 coenzyme Q10 75 mg capsule (Ultra 75 mg PO DAILY 06/17/23 06/17/23 CoQ10) fluticasone fur. 200 mcg-umeclid 1 inh inhalation DAILY 06/17/23 06/17/23 62.5 mcg-vilant 25 mcg inhalat.powder (Trelegy Ellipta) glucosamine MIl-C2-Kampmwred 1 tab PO DAILY 06/17/23 06/17/23 keerthi 1,500 mg-400 unit-100 mg tablet (Osteo Bi-Flex (5-Loxin)) hydrochlorothiazide 25 mg tablet 25 mg PO DAILY 06/17/23 06/17/23 losartan 100 mg tablet 100 mg PO DAILY 08/25/23 08/25/23 metoprolol succinate 25 mg 25 mg PO DAILY 06/17/23 06/17/23 tablet,extended release 24 hr multivitamin 1 tab PO DAILY 06/17/23 06/17/23 omega 6-lfq-wfo-fish oil 60 mg-90 1 cap PO DAILY 06/17/23 06/17/23 mg-500 mg capsule (Fish Oil) Previous Rx's ?Medication ?Instructions ?Recorded dicyclomine 20 mg tablet 20 mg PO TID 5 days #15 tabs 06/17/23 polyethylene glycol 3350 17 gram 17 g PO DAILY 5 days #14 ea 06/17/23 oral powder packet (Miralax) azithromycin 250 mg tablet See Rx Instructions PO .COMPLEX #6 10/27/24 tabs methylprednisolone 4 mg tablets in 4 mg PO DAILY #21 ea 10/27/24 a dose pack (Medrol (Zan)) hydrocodone 5 mg-acetaminophen 325 1 tab PO Q8H PRN pain 3 days #8 12/24/24 mg tablet tabs Allergies Allergy/AdvReac Type Severity Reaction Status Date / Time Penicillins Allergy Severe Swelling Verified 10/27/24 14:15 of Lip/Tongue/Throat morphine AdvReac Severe Vomiting Verified 10/27/24 14:15 Opioid HPI Opioid Management Most Recent Pain and Opioid Data: No Data to Display Review of Systems ROS Narrative CONST: Denies activity change, diaphoresis HENT: Denies facial swelling, dental problems, hearing loss, tinnitus EYES: Denies visual changes, eye pain RESP: Denies shortness of breath, chest tightness CV: Denies chest pain, palpitations GI: Denies abd pain, nausea : Denies flank pain MS: + Right ankle pain and swelling. Denies myalgias, back pain, neck pain SKIN: + bruising. NEURO: Denies headache, dizziness, numbness, paresthesias HEMATOLOGIC: + on plavix. Denies anticoagulant use PSYCHIATRIC: Denies confusion PFSH PFSH Social History Little interest or pleasure in doing things: not at all Feeling down, depressed, or hopeless: not at all Exam Narrative Exam Narrative: Vital signs reviewed Nurses notes noted CONST: Pleasant, nontoxic, well appearing, well nourished, in no distress.? No diaphoresis.?? HENT: normocephalic, atraumatic.? There is no tenderness, edema, crepitus, instability, step off of the scalp, face. Moist mucous membrane, no abnormalities of the nose noted, normal appearing ext ears.? No drainage, blood from ears.? Hearing normal.? No dental injury. EYES: PERRL, EOMI.? Normal appearing conjunctiva, no apparent discharge bilat.? No orbital or periorbital swelling or tenderness. NECK: normal appearance, no tenderness, swelling CV: normal rate, regular rhythm, no murmur RESP: normal effort, speaking in complete sentences, Lung sounds clear and equal bilat.? No wheezes, rales, rhonchi.? No chest tenderness CHEST:? nontender.? No edema, crepitus, instability GI: normal bowel sounds, soft, nontender, no distension : no CVA tenderness, discoloration MS: student specialist, push, pull strong and equal bilat.? No tenderness of the spinous process, paraspinal musculature of the C, T, L-S spines Right foot and ankle: He has circumferential swelling around the ankle with tenderness to the lateral malleolus. No tenderness to the anterior, medial aspect of the ankle. No tenderness along the Achilles tendon. No tenderness to the foot with particular attention to the fifth metatarsal. No proximal fibular head tenderness. No swelling, ecchymosis, discoloration, crepitus, deformity, instability, warmth ROM full with DF, PF Strength 5/5 Pulses 2+, intact Sensory intact throughout and distal to the injury SKIN: intact.? + bruising Warm, dry.? No abrasions, lacerations, pallor NEURO: A&Ox 3, GCS = 15, no sensory, motor deficits.? CN II-XII normal as tested.? No abnormalities noted with coordination PSYCH: normal mood, affect.? Normal speech.? Memory intact. Constitutional Vital Signs, click to edit/add: Last Vital Signs Temp 98.0 F 12/24/24 13:34 Pulse 86 12/24/24 13:34 Resp 18 12/24/24 13:34 BP 118/68 12/24/24 13:34 Pulse Ox 96 12/24/24 13:34 Course Reevaluation(s) Reevaluation #1: Discussed with patient and results, plan, and disposition. Patient and are agreeable. Time: 15:02 Vital Signs Vital signs: Vital Signs Temperature 98.0 F 12/24/24 13:34 Pulse Rate 86 12/24/24 13:34 Respiratory Rate 18 12/24/24 13:34 Blood Pressure 118/68 12/24/24 13:34 Pulse Oximetry 96 12/24/24 13:34 Temperature 98.0 F 12/24/24 13:34 Pulse Rate 86 12/24/24 13:34 Respiratory Rate 18 12/24/24 13:34 Blood Pressure 118/68 12/24/24 13:34 Pulse Oximetry 96 12/24/24 13:34 MDM - Extremity Injury (Lower) MDM Narrative Medical decision making narrative: This is a pleasant 74-year-old male who presents to the emergency department for evaluation of right ankle injury On arrival, afebrile, vital signs stable. On exam, nontoxic, well appearing patient, in no apparent distress. He has tenderness over the lateral malleolus, I have neurovascularly intact. On head to toe evaluation, no other tenderness, traumatic findings noted circumferential swelling. Range of motion full. No other tenderness is noted. X-ray imaging right ankle, per radiologist reveals oblique distal fibula fracture Favor right distal fibula fracture Dislocation less likely based on imaging History and Record Review Discussion with independent historian: Management Independent interpretation: Right ankle: Minimally displaced oblique fracture distal fibula. No evidence of mortise involvement. Mortise appears stable. Disposition ? The patient was discharged. Prescriptions sent to pharmacy: [facility] Patient placed in walking boot Patient advised rest, ice, elevation, compression Patient advised Ibuprofen/Tylenol as needed for pain Plan: Patient will be discharged to home. Condition at time of disposition: stable . ? Advised to follow up with referral provider, name and number placed on discharge paperwork. Advised to return for any worsening and/or development of new, concerning signs or symptoms PLEASE NOTE: Portions of the medical record may have been produced using electronic brick siding applicator and may contain errors with respect to translation of words which may not have been identified prior to finalization of the chart. Medical Records Attestation: I reviewed the patient's medical records. Imaging Data Right foot and ankle: Attestation: I have reviewed the pertinent imaging results. Radiologist's impression: Oblique fx distal fibula Discharge Plan Discharge Chief Complaint: Extremity Injury, Lower Clinical Impression: Closed fracture of distal end of right fibula Qualifiers: Encounter type: initial encounter Fracture morphology: unspecified fracture morphology Qualified Code(s): S82.831A - Other fracture of upper and lower end of right fibula, initial encounter for closed fracture Ankle pain, right Qualifiers: Chronicity: acute Qualified Code(s): M25.571 - Pain in right ankle and joints of right foot Patient Disposition: Home, Self-Care Time of Disposition Decision: 15:02 Condition: Good Mode of Transportation: Private Vehicle Prescriptions / Home Meds: New hydrocodone-acetaminophen 5-325 mg tablet 1 tab PO Q8H PRN (Reason: pain) 3 Days Qty: 8 0RF No Action Trelegy Ellipta 200-62.5-25 mcg blister with device 1 inh inhalation DAILY atorvastatin 80 mg tablet 80 mg PO DAILY clopidogrel 75 mg tablet 75 mg PO DAILY losartan 100 mg tablet 100 mg PO DAILY metoprolol succinate 25 mg tablet extended release 24 hr 25 mg PO DAILY hydrochlorothiazide 25 mg tablet 25 mg PO DAILY ascorbic acid (vitamin C) 500 mg capsule PO cholecalciferol (vitamin D3) 125 mcg (5,000 unit) capsule 5,000 unit PO DAILY multivitamin Tablet 1 tab PO DAILY omega 1-thc-kcc-fish oil [Fish Oil] 60-90-500 mg capsule 1 cap PO DAILY ulwfodkvmxb-K5-Nxmdiyyng serr [Osteo Bi-Flex (5-Loxin)] 1,500-400-100 mg-unit-mg tablet 1 tab PO DAILY Rx Instructions: give after food/meal Ultra CoQ10 75 mg capsule 75 mg PO DAILY dicyclomine 20 mg tablet 20 mg PO TID 5 Days Qty: 15 0RF polyethylene glycol 3350 [Miralax] 17 gram powder in packet 17 g PO DAILY 5 Days Qty: 14 0RF methylprednisolone [Medrol (Zan)] 4 mg tablets,dose pack 4 mg PO DAILY Qty: 21 0RF azithromycin 250 mg tablet See Rx Instructions .ROUTE .COMPLEX Qty: 6 0RF Rx Instructions: For 250 mg dose pack: take 500 mg today (day 1), then 250 mg for 4 days (days 2-5) Print Language: [place] Instructions: Ankle Fracture (ED) Additional Instructions: Take 600 mg of over the counter ibuprofen (3 tabs) as needed for pain . or Take 650 mg - 1000 mg of over the counter Tylenol as needed for pain . Referrals: Aba Le DPM [Physician] - 12/25/24 Discharge Date/Time: 12/24/24 15:44 Procedures ED Procedure Instructions Procedures Procedures: ED PROCEDURE NOTE: SPLINTING/STRAPPING The ED customer account technician applied a walking boot splint/immobilizer to the right foot and ankle along with an Mehrdad underneath it of the patient. The area was examined post application and there was good alignment and good neurovascular function of the splinted/immobilized body part following the procedure. The patient tolerated the procedure well. Electronically verified by Jeet Hernandez PA-C Documented by User: Ramana Melendez MD 12/24/24 19:57 HPI HPI - Extremity Injury (Lower) General Chief Complaint: Extremity Injury, Lower Stated Complaint: FALL; R ANKLE PAIN Time Seen by Provider: 12/24/24 14:47 Related Data Home Medications ?Medication ?Instructions ?Recorded ?Confirmed ascorbic acid (vitamin C) 500 mg mg PO 06/17/23 capsule atorvastatin 80 mg tablet 80 mg PO DAILY 06/17/23 06/17/23 cholecalciferol (vitamin D3) 125 5,000 unit PO DAILY 06/17/23 06/17/23 mcg (5,000 unit) capsule clopidogrel 75 mg tablet 75 mg PO DAILY 06/17/23 06/17/23 coenzyme Q10 75 mg capsule (Ultra 75 mg PO DAILY 06/17/23 06/17/23 CoQ10) fluticasone fur. 200 mcg-umeclid 1 inh inhalation DAILY 06/17/23 06/17/23 62.5 mcg-vilant 25 mcg inhalat.powder (Trelegy Ellipta) glucosamine TUd-W6-Hcscevjno 1 tab PO DAILY 06/17/23 06/17/23 keerthi 1,500 mg-400 unit-100 mg tablet (Osteo Bi-Flex (5-Loxin)) hydrochlorothiazide 25 mg tablet 25 mg PO DAILY 06/17/23 06/17/23 losartan 100 mg tablet 100 mg PO DAILY 06/17/23 06/17/23 metoprolol succinate 25 mg 25 mg PO DAILY 06/17/23 06/17/23 tablet,extended release 24 hr multivitamin 1 tab PO DAILY 06/17/23 06/17/23 omega 1-rkz-nuf-fish oil 60 mg-90 1 cap PO DAILY 06/17/23 06/17/23 mg-500 mg capsule (Fish Oil) Previous Rx's ?Medication ?Instructions ?Recorded dicyclomine 20 mg tablet 20 mg PO TID 5 days #15 tabs 06/17/23 polyethylene glycol 3350 17 gram 17 g PO DAILY 5 days #14 ea 06/17/23 oral powder packet (Miralax) azithromycin 250 mg tablet See Rx Instructions PO .COMPLEX #6 10/27/24 tabs methylprednisolone 4 mg tablets in 4 mg PO DAILY #21 ea 10/27/24 a dose pack (Medrol (Zan)) hydrocodone 5 mg-acetaminophen 325 1 tab PO Q8H PRN pain 3 days #8 12/24/24 mg tablet tabs Allergies Allergy/AdvReac Type Severity Reaction Status Date / Time Penicillins Allergy Severe Swelling Verified 10/27/24 14:15 of Lip/Tongue/Throat morphine AdvReac Severe Vomiting Verified 10/27/24 14:15 Opioid HPI Opioid Management Most Recent Pain and Opioid Data: No Data to Display PFSH PFSH Social History Little interest or pleasure in doing things: not at all Feeling down, depressed, or hopeless: not at all Exam Constitutional Vital Signs, click to edit/add: Last Vital Signs Temp 98.0 F 12/24/24 13:34 Pulse 86 12/24/24 13:34 Resp 18 12/24/24 13:34 BP 118/68 12/24/24 13:34 Pulse Ox 96 12/24/24 13:34 Course Vital Signs Vital signs: Vital Signs Temperature 98.0 F 12/24/24 13:34 Pulse Rate 86 12/24/24 13:34 Respiratory Rate 18 12/24/24 13:34 Blood Pressure 118/68 12/24/24 13:34 Pulse Oximetry 96 12/24/24 13:34 Temperature 98.0 F 12/24/24 13:34 Pulse Rate 86 12/24/24 13:34 Respiratory Rate 18 12/24/24 13:34 Blood Pressure 118/68 12/24/24 13:34 Pulse Oximetry 96 12/24/24 13:34 MDM - Extremity Injury (Lower) MDM Narrative Medical decision making narrative: This is a pleasant 74-year-old male who presents to the emergency department for evaluation of right ankle injury On arrival, afebrile, vital signs stable. On exam, nontoxic, well appearing patient, in no apparent distress. He has tenderness over the lateral malleolus, I have neurovascularly intact. On head to toe evaluation, no other tenderness, traumatic findings noted circumferential swelling. Range of motion full. No other tenderness is noted. X-ray imaging right ankle, per radiologist reveals oblique distal fibula fracture Favor right distal fibula fracture Dislocation less likely based on imaging History and Record Review Discussion with independent historian: Management Independent interpretation: Right ankle: Minimally displaced oblique fracture distal fibula. No evidence of mortise involvement. Mortise appears stable. Disposition ? The patient was discharged. Prescriptions sent to pharmacy: [facility] Patient placed in walking boot Patient advised rest, ice, elevation, compression Patient advised Ibuprofen/Tylenol as needed for pain Plan: Patient will be discharged to home. Condition at time of disposition: stable . ? Advised to follow up with referral provider, name and number placed on discharge paperwork. Advised to return for any worsening and/or development of new, concerning signs or symptoms PLEASE NOTE: Portions of the medical record may have been produced using electronic brick siding applicator and may contain errors with respect to translation of words which may not have been identified prior to finalization of the chart. I, Dr Melendez, have reviewed the above progress note and course of action in the ER; agree with the above. I have personally gone over history and physical, and discussed disposition and treatment plan with the PA. Discharge Plan Discharge Chief Complaint: Extremity Injury, Lower Clinical Impression: Closed fracture of distal end of right fibula Qualifiers: Encounter type: initial encounter Fracture morphology: unspecified fracture morphology Qualified Code(s): S82.831A - Other fracture of upper and lower end of right fibula, initial encounter for closed fracture Ankle pain, right Qualifiers: Chronicity: acute Qualified Code(s): M25.571 - Pain in right ankle and joints of right foot Patient Disposition: Home, Self-Care Time of Disposition Decision: 15:02 Condition: Good Mode of Transportation: Private Vehicle Prescriptions / Home Meds: New hydrocodone-acetaminophen 5-325 mg tablet 1 tab PO Q8H PRN (Reason: pain) 3 Days Qty: 8 0RF No Action Trelegy Ellipta 200-62.5-25 mcg blister with device 1 inh inhalation DAILY atorvastatin 80 mg tablet 80 mg PO DAILY clopidogrel 75 mg tablet 75 mg PO DAILY losartan 100 mg tablet 100 mg PO DAILY metoprolol succinate 25 mg tablet extended release 24 hr 25 mg PO DAILY hydrochlorothiazide 25 mg tablet 25 mg PO DAILY ascorbic acid (vitamin C) 500 mg capsule PO cholecalciferol (vitamin D3) 125 mcg (5,000 unit) capsule 5,000 unit PO DAILY multivitamin Tablet 1 tab PO DAILY omega 8-jta-mhv-fish oil [Fish Oil] 60-90-500 mg capsule 1 cap PO DAILY qdpqzmkxmty-E9-Bkirnoazh serr [Osteo Bi-Flex (5-Loxin)] 1,500-400-100 mg-unit-mg tablet 1 tab PO DAILY Rx Instructions: give after food/meal Ultra CoQ10 75 mg capsule 75 mg PO DAILY dicyclomine 20 mg tablet 20 mg PO TID 5 Days Qty: 15 0RF polyethylene glycol 3350 [Miralax] 17 gram powder in packet 17 g PO DAILY 5 Days Qty: 14 0RF methylprednisolone [Medrol (Zan)] 4 mg tablets,dose pack 4 mg PO DAILY Qty: 21 0RF azithromycin 250 mg tablet See Rx Instructions .ROUTE .COMPLEX Qty: 6 0RF Rx Instructions: For 250 mg dose pack: take 500 mg today (day 1), then 250 mg for 4 days (days 2-5) Print Language: [place] Instructions: Ankle Fracture (ED) Additional Instructions: Take 600 mg of over the counter ibuprofen (3 tabs) as needed for pain . or Take 650 mg - 1000 mg of over the counter Tylenol as needed for pain . Referrals: Aba Le DPM [Physician] - 12/25/24 Discharge Date/Time: 12/24/24 15:44
== END 2024-12-24 15:44 | disposition home or self-care (01) ==
PROVIDERS: Emergency Provider Emergency Medicine; PCP Family Medicine
DX: S82.831A Other fracture of upper and lower end of right fibula, initial encounter for closed fracture (principal); W10.8XXA Fall (on) (from) other stairs and steps, initial encounter; Z79.02 Long term (current) use of antithrombotics/antiplatelets; M25.571 Pain in right ankle and joints of right foot
CPT/HCPCS: 73610; 73630; 99283

== ENCOUNTER 2024-12-31 14:18 | Outpatient (OUT) | payer MEDICARE, SELFPAY ==
--- NOTE | 2024-12-31 | XR_ITS ---
[place] [id number] Patient Name: HUY MARTINEZ MRN: [id number] date: 1950 Sex: M Assigned Patient Location: Current Patient Location: Accession/Order Number: [id number] Exam Date: 12/31/2024 17:31 Report Date: 01/01/2025 15:15 At the request of: HEATH FORTE MD Procedure: XR ankle RT min 3V 3 views right ankle plain film COMPARISON: 12/24/2024 HISTORY: Follow-up right distal fibular fracture ACUTE FINDINGS: Stable distal fibular fracture appears stable alignment DEGENERATIVE CHANGE: Unremarkable SOFT TISSUE FINDINGS: Unremarkable JOINT EFFUSION: None POSTOP CHANGES: None BONE MINERALIZATION: Adequate XR/XR ankle RT min 3V IMPRESSION: Stable findings Impression dictated by: Ramana Caro M.D.01/01/2025 3:15 PM Dictation Location: [place] [address] Electronically authenticated by: [id number] Y Date: 01/01/2025 15:15
--- OUTSIDE RECORDS SUMMARY | 2024-12-31 14:26 | XMS_ITS | CCD ---
Author Organization [facility] Team Providers Care Refrigeration Insulator Name Role Phone [place] Procedure Practitioner Unavailab le SELF, REFERRED Referring Unavailable SELF, REFERRED Primary Care Unavailable EBRAHEIM, ANDREWS Surgeon Unavailable EBRAHEIM, ANDREWS Attending Unavailable EBRAHEIM, ANDREWS Admitting Unavailable [place] Procedure Practitioner Unavailab RASHEEDA Galarza Surgeon Unavailable UNKNOWN, PROVIDER Attending Unavailable UNKNOWN, PROVIDER Admitting Unavailable POOL GARCIA Primary Care Unavailable JOSE, POOL Referring Unavailable UNKNOWN, PROVIDER Attending Unavailable UNKNOWN, PROVIDER Admitting Unavailable NADEREMariusz, POOL Referring Unavailable NADERER, POOL Primary Care Unavailable UNKNOWN, PROVIDER Attending Unavailable UNKNOWN, PROVIDER Admitting Unavailable SELF, REFERRED Referring Unavailable SELF, REFERRED Primary Care Unavailable [place] Procedure Practitioner Unavailab le SELF, REFERRED Primary [...] SCOTT Jurado Attending Unavailable CHAUHAN ., DR SCTOT Jurado Admitting Unavailable LAKSHMIPATHY, NARENDRANATH Consulting Unava [...] Admitting Unavailable SAMSA ., LEIGHA Consulting Unavailable NADEREMariusz, DR POOL Valera Primary Care Unavailable SAMSA ., LEIGHA Attending Unavailable SAMSA ., LEIGHA Admitting Unavailable AGUBOSIM, KALEIGH Consulting Unavailable LONG, CHANTELLE Consulting Unavailable LANGENBERG, CARMEN Consulting Unavailable ALEXANDRA, [...] Unavailable Pool Garcia MD Primary Care Provider [phone] POOL GARCIA Attending Unavailable ARON ANDERSON Attending Unavailable HOLLY HUGHES Attending Unavailable Allergies Allergy Classification Reported Allergen(s) Allergy Type Date of Onset Reaction(s) Facility (3 sources) Penicillins; Translations: [PENICILLINS] Drug allergy (disorder) 7 [facility] Repository (2 sources) Penicillin G Drug Allergy 4 hives and throat swelling 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; Translations: [OTH INTERMEDIATE CURRENT DRUG THERAPY] Onset: 01-16-2023 Episodic Other aftercare (2 sources) Long-term current use of drug therapy; Translations: [Other detention (current) drug therapy] 08-15-2024 Episodic Other diseases [...] Onset: 08-15-2024 08-15-2024 Other aftercare (1 source) USP (current) use of anticoagulants; Translations: [INTERMEDIATE CURRNT USE ANTICOAGULANTS] Onset: 03-03-2022 Episodic Other [...] Range Facility Orders Onlyon 09-07-2024 Orders Only [id number] Huy Osei 1950 M Date Provider Department Center 09/07/2024 ZAHRAA CROWELL Family History Problem Relation Age of Onset Cancer Mother Cancer Brother Diabetes Paternal Grandmother Family Status - Relation Status Age at Mother Brother Paternal Grandmother Normal [facility] ALL CBC WITH AUTO DIFFon BASOPHILS ABSOLUTE AUTO [facility] Basophils/100 WBC (Bld) 0.7 % 0.2 - 2.0 % [facility] Eosinophils/100 WBC (Bld) 3.2 % 0.9 - 7.0 % [facility] Erythrocyte distribution width (RBC) [Ratio] 12.9 % 11.0 - 15.0 % [facility] Hematocrit (Bld) [Volume fraction] 35.1 % Low 42.0 - 54.0 % [facility] Hemoglobin (Bld) [Mass/Vol] 11.9 g/dL Low 14.0 - 18.0 g/dL [facility] IMMATURE GRANULOCYTES ABS AUTO 0.03 [facility] Immature granulocytes/100 WBC (Bld) 0.4 % 0.0 - 0.5 % [facility] Interpretation and review of laboratory results Abnormal [facility] LYMPHOCYTES ABSOLUTE AUTO 0.9 Low [facility] Lymphocytes/100 WBC (Bld) 13.3 % Low 20.5 - 60.0 % [facility] MCH (RBC) [Entitic mass] 33.1 pg 25.9 - 34.0 pg [facility] MCHC (RBC) [Mass/Vol] 33.9 g/dL 29.9 - 35.2 g/dL [facility] MCV (RBC) [Entitic vol] 97.8 fL High 80.0 - 94.0 fL [facility] MONOCYTES ABSOLUTE AUTO 0.8 N [facility] Monocytes/100 WBC (Bld) 11.7 % 1.7 - 12.0 % [facility] NEUTROPHILS ABSOLUTE AUTO 4.9 [facility] Neutrophils/100 WBC (Bld) 70.7 % 43.0 - 75.0 % [facility] Platelet mean volume (Bld) [Entitic vol] 9.2 fL Low 9.5 - 13.5 fL [facility] TBH EO # 0.2 [facility]H PLT 242 [facility] TB RBC 3.59 Low [facility] TBH WBC 6.9 [facility] Office Visiton 07-13-2024 Follow-up visit [id number] Huy Osei 1950 M Date Provider Department Center 07/13/2024 HOLLY DOUGLAS [facility] Family History Problem Relation Age of Onset Cancer Mother Cancer Brother Diabetes Paternal Grandmother Family Status - Relation Status Age at Mother Brother Paternal Grandmother Level of Service:12526 [place] OFFICE/OUTPATIENT ESTABLISHED LOW MDM 20 MIN Normal [facility] 36on 03-23-2024 34 Approving, but needs appt for additional refills. Normal [facility] CT HEAD WO CONTRASTon 2023 CT [...] Maria Waddell MD 03/12/24 Final result Normal [facility] Comp Metabolic Profon 2023 Albumin [Mass/Vol] 4.3 g/dL Normal 3.5-5.2 [facility] Comment on above: Performed By: #### C DP, PTT, PT, CP #### [address] [address] Polymerization Kettle Operator: Daniel Rosado MD Albumin/Glob Ratio 2.0 Normal 1.0-2.5 [facility] Comment on above: Performed By: #### C DP, PTT, PT, CP #### [address] [address] Polymerization Kettle Operator: Daniel Rosado MD Alkaline Phos 68 U/L Normal 40-129 [facility] Comment on above: Performed By: #### C DP, PTT, PT, CP #### [address] [address] Polymerization Kettle Operator: Daniel Rosado MD ALT [Catalytic activity/Vol] 17 U/L Normal 10-50 [facility] Comment on above: Performed By: #### C DP, PTT, PT, CP #### [address] [address] Polymerization Kettle Operator: Daniel Rosado MD Anion gap [Moles/Vol] 17 mmol/L High 9-16 [facility] Comment on above: Performed By: #### C DP, PTT, PT, CP #### [address] [address] Polymerization Kettle Operator: Daniel Rosado MD AST [Catalytic activity/Vol] 26 U/L Normal 10-50 [facility] Comment on above: Result Comment: SPEC IMEN SLIGHTLY HEMOLYZED, RESULTS MAY BE ADVERSELY AFFECTED. Performed By: #### C DP, PTT, PT, CP #### [address] [address] Polymerization Kettle Operator: Daniel Rosado MD Bilirubin [Mass/Vol] 0.3 mg/dL Normal 0.00-1.20 [facility] Comment on above: Performed By: #### C DP, PTT, PT, CP #### [facility] [employer] [address] [place] [id number] Polymerization Kettle Operator: Daniel Rosado MD Calcium [Mass/Vol] 9.5 mg/dL Normal 8.6-10.4 [facility] Comment on above: Performed By: #### C DP, PTT, PT, CP #### [address] [address] Polymerization Kettle Operator: Daniel Rosado MD Chloride [Moles/Vol] 94 mmol/L Low 98-107 [facility] Comment on above: Performed By: #### C DP, PTT, PT, CP #### [address] [address] Polymerization Kettle Operator: Daniel Rosado MD CO2 [Moles/Vol] 18 mmol/L Low 20-31 [facility] Comment on above: Performed By: #### C DP, PTT, PT, CP #### [address] [address] Polymerization Kettle Operator: Daniel Rosado MD Creatinine [Mass/Vol] 1.8 mg/dL High 0.70-1.20 [facility] Comment on above: Performed By: #### C DP, PTT, PT, CP #### [facility] [employer] [address] [place] [phone] Polymerization Kettle Operator: Daniel Rosado MD GFR/1.73 sq M.predicted among non-blacks MDRD (S/P/Bld) [Vol rate/Area] 40 mL/min/{1.73_m2} Low >60 [facility] Comment on above: Result Comment: These [...] #### C DP, PTT, PT, CP #### [facility] [employer] [address] [place] [address] Polymerization Kettle Operator: Daniel Rosado MD Glucose [Mass/Vol] 106 mg/dL High 74-99 [facility] Comment on above: Performed By: #### C DP, PTT, PT, CP #### [address] [address] Polymerization Kettle Operator: Daniel Rosado MD Potassium [Moles/Vol] 3.9 mmol/L Normal 3.7-5.3 [facility] Comment on above: Result Comment: SPEC IMEN SLIGHTLY HEMOLYZED, RESULTS MAY BE ADVERSELY AFFECTED. Performed By: #### C DP, PTT, PT, CP #### [address] [address] Polymerization Kettle Operator: Daniel Rosado MD Protein [Mass/Vol] 6.9 g/dL Normal 6.6-8.7 [facility] Comment on above: Performed By: #### C DP, PTT, PT, CP #### [facility] [employer] [address] [place] [address] Polymerization Kettle Operator: Daniel Rosado MD Sodium [Moles/Vol] 129 mmol/L Low 136-145 [facility] Comment on above: Performed By: #### C DP, PTT, PT, CP #### [address] [address] Polymerization Kettle Operator: Daniel Rosado MD Urea nitrogen [Mass/Vol] 27 mg/dL High 8-23 [facility] Comment on above: Performed By: #### C DP, PTT, PT, CP #### [address] [address] Polymerization Kettle Operator: Daniel Rosado MD APTTon 03-12-2024 aPTT Coag (Bld) [Time] 22.5 s Low 23.0-36.5 [facility] Comment on above: Result Comment: IV Heparin Therapy Range: 66.0-92.0 sec Performed By: #### C DP, PTT, PT, CP #### [place] [address] Polymerization Kettle Operator: Daniel Rosado MD CBC with Diffon 03-12-2024 Abs. Basophil 0.06 k/uL Normal 0.00-0.20 [facility] Comment on above: Performed By: #### C DP, PTT, PT, CP #### [place] [address] Polymerization Kettle Operator: Daniel Rosado MD Abs.Imm.Granulocyte 0.06 k/uL Normal 0.00-0.30 [facility] Comment on above: Performed By: #### C DP, PTT, PT, CP #### [place] [address] Polymerization Kettle Operator: Daniel Rosado MD Abs.Neutrophil (Seg) 5.10 k/uL Normal 1.50-8.10 [facility] Comment on above: Performed By: #### C DP, PTT, PT, CP #### [place] [address] Polymerization Kettle Operator: Daniel Rosado MD Basophils/100 WBC (Bld) 1 % Normal 0-2 [facility] Comment on above: Performed By: #### C DP, PTT, PT, CP #### [place] [address] Polymerization Kettle Operator: Daniel Rosado MD Eosinophils (Bld) [#/Vol] 0.16 10*3/uL Normal 0.00-0.44 [facility] Comment on above: Performed By: #### C DP, PTT, PT, CP #### [address] [address] Polymerization Kettle Operator: Daniel Rosado MD Eosinophils/100 WBC (Bld) 2 % Normal 1-4 [facility] Comment on above: Performed By: #### C DP, PTT, PT, CP #### [place] [address] [employer]ization Kettle Operator: Daniel Rosado MD Erythrocyte distribution width (RBC) [Ratio] 13.6 % Normal 11.8-14.4 [facility] Comment on above: Performed By: #### C DP, PTT, PT, CP #### [place] [address] [employer]ization Kettle Operator: Daniel Rosado MD Hematocrit (Bld) [Volume fraction] 34.3 % Low 40.7-50.3 [facility] Comment on above: Performed By: #### C DP, PTT, PT, CP #### [address] [address] Polymerization Kettle Operator: Daniel Rosado MD Hemoglobin (Bld) [Mass/Vol] 11.5 g/dL Low 13.0-17.0 [facility] Comment on above: Performed By: #### C DP, PTT, PT, CP #### [address] [address] Polymerization Kettle Operator: Daniel Rosado MD Immature granulocytes/100 WBC (Bld) 1 % High 0 [facility] Comment on above: Performed By: #### C DP, PTT, PT, CP #### [address] [address] Polymerization Kettle Operator: Daniel Rosado MD Lymphocytes (Bld) [#/Vol] 1.02 10*3/uL Low 1.10-3.70 [facility] Comment on above: Performed By: #### C DP, PTT, PT, CP #### [address] [address] Polymerization Kettle Operator: Daniel Rosado MD Lymphocytes/100 WBC (Bld) 14 % Low 24-43 [facility] Comment on above: Performed By: #### C DP, PTT, PT, CP #### [place] [address] Polymerization Kettle Operator: Daniel Rosado MD MCH (RBC) [Entitic mass] 32.9 pg Normal 25.2-33.5 [facility] Comment on above: Performed By: #### C DP, PTT, PT, CP #### [place] [address] Polymerization Kettle Operator: Daniel Rosado MD MCHC (RBC) [Mass/Vol] 33.5 g/dL Normal 28.4-34.8 [facility] Comment on above: Performed By: #### C DP, PTT, PT, CP #### [place] [address] Polymerization Kettle Operator: Daniel Rosado MD MCV (RBC) [Entitic vol] 98.0 fL Normal 82.6-102.9 M [facility] Comment on above: Performed By: #### C DP, PTT, PT, CP #### [place] [address] Polymerization Kettle Operator: Daniel Rosado MD Monocytes (Bld) [#/Vol] 0.86 10*3/uL Normal 0.10-1.20 [facility] Comment on above: Performed By: #### C DP, PTT, PT, CP #### [address] [address] Polymerization Kettle Operator: Daniel Rosado MD Monocytes/100 WBC (Bld) 12 % Normal 3-12 M [facility] Comment on above: Performed By: #### C DP, PTT, PT, CP #### [address] [address] Polymerization Kettle Operator: Daniel Rosado MD Neutrophil (Seg) 70 % High 36-65 [facility] Comment on above: Performed By: #### C DP, PTT, PT, CP #### [address] [address] Polymerization Kettle Operator: Daniel Rosado MD NRBC Automated 0.0 per 100 WBC Normal 0.0 [facility] Comment on above: Performed By: #### C DP, PTT, PT, CP #### [address] [address] Polymerization Kettle Operator: Daniel Rosado MD Platelet mean volume (Bld) [Entitic vol] 8.9 fL Normal 8.1-13.5 [facility] Comment on above: Performed By: #### C DP, PTT, PT, CP #### [address] [address] Polymerization Kettle Operator: Daniel Rosado MD Platelets (Bld) [#/Vol] 240 10*3/uL Normal 138-453 [facility] Comment on above: Performed By: #### C DP, PTT, PT, CP #### [address] [address] Polymerization Kettle Operator: Daniel Rosado MD RBC (Bld) [#/Vol] 3.50 10*6/uL Low 4.21-5.77 [facility] Comment on above: Performed By: #### C DP, PTT, PT, CP #### [address] [address] Polymerization Kettle Operator: Daniel Rosado MD WBC (Bld) [#/Vol] 7.3 10*3/uL Normal 3.5-11.3 [facility] Comment on above: Performed By: #### C DP, PTT, PT, CP #### [address] [phone] Polymerization Kettle Operator: Daniel Rosado MD PTon 03-12-2024 INR Coag (PPP) [Relative time] 1.0 {INR} Normal [facility] Comment on above: Result Comment: Therapeutic Range: Moderate Anticoagulant Intensity: INR = 2.0-3.0 High Anticoagulant Intensity: INR = 2.5-3.5 Performed By: #### C DP, PTT, PT, CP #### [address] [id number] Polymerization Kettle Operator: Daniel Rosado MD PT Coag (PPP) [Time] 13.0 s Normal 11.7-14.9 [facility] Comment on above: Performed By: #### C DP, PTT, PT, CP #### [address] [id number] Polymerization Kettle Operator: Daniel Rosado MD 36on 01-18-2024 36 Regarding echo, GEETHA' s and lipid results: MD Rasheeda Godwin MA His echo, ABIs, and lipids are all okay. Follow-up in 6 months. Patient informed. Normal [facility] Office Visiton 12-26-2023 Follow-up visit [id number] Huy Osei 1950 M Date Provider Department Center 12/26/2023 ARON ONEAL JS Padilla Family History Problem Relation Age of Onset Cancer Mother Cancer Brother Diabetes Paternal Grandmother Family Status - Relation Status Age at Mother Brother Paternal Grandmother Level of Service:44401 [place] OFFICE/OUTPATIENT ESTABLISHED MOD MDM 30 MIN [facility] TESTOSTERONE, TOTALon 2022 Testosterone [Mass/Vol] 215 ng/dL Critically low 264-916 [facility] Comment on above: Result Comment: Adul t male reference interval is based on a population of healthy nonobese males (BMI <30) between 19 and 39 years old. ashley Lee.al. JCEM 2017,102;0248-3141. PMID: [id number]. Performed By: #### T ESTTOT #### [facility] [address] [place] [address] Dr. Marilin Rothman CBC AUTO DIFFon 01-13-2023 BASO # 0.0 103/ul Normal 0.0-0.1 [facility] Comment on above: Performed By: #### T SH, BMP #### [facility] [address] [place] [address] Dr. Marilin Rothman Basophils/100 WBC (Bld) 0.3 % Normal 0.2-2.0 [facility] Comment on above: Performed By: #### T SH, BMP #### [facility] [address] [place] [address] Dr. Marilin Rothman EO # 0.0 103/ul Normal 0.0-0.7 [facility] Comment on above: Performed By: #### T SH, BMP #### [facility] [address] [place] [address] Dr. Marilin Rothman Eosinophils/100 WBC (Bld) 0.2 % Critically low 0.9-7.0 [facility] Comment on above: Performed By: #### T SH, BMP #### [facility] [address] [place] [address] Dr. Marilin Rothman Erythrocyte distribution width (RBC) [Ratio] 13.3 % Normal 11.0-15.0 [facility] Comment on above: Performed By: #### T SH, BMP #### [facility] [address] [place] [address] Dr. Marilin Rothman Hematocrit (Bld) [Volume fraction] 38.2 % Critically low 42.0-54.0 [facility] Comment on above: Performed By: #### T SH, BMP #### [facility] [address] [place] [address] Dr. Marilin Rothman Hemoglobin (Bld) [Mass/Vol] 13.1 g/dL Critically low 14.0-18.0 [facility] Comment on above: Performed By: #### T SH, BMP #### [facility] [address] [place] [address] Dr. Marilin Rothman IG # 0.08 10e3/ul Critically high 0.00-0.03 [facility] Comment on above: Performed By: #### T SH, BMP #### [facility] [address] [place] [address] Dr. Marilin Rothman IG % 0.8 % Critically high 0.0-0.5 [facility] Comment on above: Performed By: #### T SH, BMP #### [facility] [address] [place] [address] Dr. Marilin Rothman LYMPH # 1.0 103/ul Critically low 1.2-3.8 [facility] Comment on above: Performed By: #### T ALEXANDER, BMP #### [facility] [address] [place] [address] Dr. Marilin Rothman Lymphocytes/100 WBC (Bld) 10.1 % Critically low 20.5-60.0 [facility] Comment on above: Performed By: #### T SH, BMP #### [facility] [address] [place] [address] Dr. Marilin Rothman MANUAL DIFF REQ NO Normal [facility] Comment on above: Performed By: #### T ALEXANDER, BMP #### [facility] [address] [place] [address] Dr. Marilin Rotmhan MCH (RBC) [Entitic mass] 32.8 pg Normal 25.9-34.0 [facility] Comment on above: Performed By: #### T SH, BMP #### [facility] [address] [place] [address] Dr. Marilin Rothman MCHC (RBC) [Mass/Vol] 34.3 g/dL Normal 29.9-35.2 [facility] Comment on above: Performed By: #### T SH, BMP #### [facility] [address] [place] [address] Dr. Marilin Rothman MCV (RBC) [Entitic vol] 95.7 fL Critically high 80.0-94 .0 [facility] Comment on above: Performed By: #### T SH, BMP #### [facility] [address] [place] [address] Dr. Marilin Rothman MONO # 0.8 103/ul Normal 0.3-0.8 [facility] Comment on above: Performed By: #### T SH, BMP #### [facility] [address] [place] [address] Dr. Marilin Rothman Monocytes/100 WBC (Bld) 8.1 % Normal 1.7-12.0 [facility] Comment on above: Performed By: #### T SH, BMP #### [facility] [address] [place] [address] Dr. Marilin Rothman NEUT # 7.6 103/ul Critically high 1.4-6.5 [facility] Comment on above: Performed By: #### T SH, BMP #### [facility] [address] [place] [address] Dr. Marilin Rothman Neutrophils/100 WBC (Bld) 80.5 % Critically high 43.0-75.0 [facility] Comment on above: Performed By: #### T SH, BMP #### [facility] [address] [place] [address] Dr. Marilin Rothman Platelet mean volume (Bld) [Entitic vol] 8.6 fL Critically low 9.5-13.5 [facility] Comment on above: Performed By: #### T SH, BMP #### [facility] [address] [place] [address] Dr. Marilin Rothman PLT 237 103/ul Normal 150-450 [facility] Comment on above: Performed By: #### T SH, BMP #### [facility] [address] [place] [address] Dr. Marilin Rothman RBC 3.99 106/ul Critically low 4.70-6.10 [facility] Comment on above: Performed By: #### T SH, BMP #### [facility] [address] [address] [address] Marilin Rothman WBC 9.4 103/ul Normal 4.0-11.0 [facility] Comment on above: Performed By: #### T SH, BMP #### [facility] [address] [address] [address] Marilin Rothman PROF CHEM 8 (BAS METB)on Anion gap [Moles/Vol] 7.8 mmol/L Normal [facility] Comment on above: Performed By: #### T SH, BMP #### [facility] [address] [place] [address] Dr. Marilin Rothman Calcium [Mass/Vol] 9.9 mg/dL Normal 8.5-10.1 [facility] Comment on above: Performed By: #### T SH, BMP #### [facility] [address] [place] [address] Dr. Marilin Rothman Chloride [Moles/Vol] 102 mmol/L Normal 98-107 [facility] Comment on above: Performed By: #### T SH, BMP #### [facility] [address] [place] [address] Dr. Marilin Rothman CO2 [Moles/Vol] 31.8 mmol/L Normal 21.0-32.0 [facility] Comment on above: Performed By: #### T SH, BMP #### [facility] [address] [place] [address] Dr. Marilin Rothman Creatinine [Mass/Vol] 1.30 mg/dL Normal 0.70-1.30 [facility] Comment on above: Performed By: #### T SH, BMP #### [facility] [address] [place] [address] Dr. Marilin Rothman EGFR-AF MALDIVIAN >60 Normal >=60 [facility] Comment on above: Performed By: #### T SH, BMP #### [facility] [address] [place] [address] Dr. Marilin Rothman EGFR-NON AF MALDIVIAN 54 mL/min/1.73m2 Critically low >=60 [facility] Comment on above: Performed By: #### T SH, BMP #### [facility] [address] [address] [address] Marilin Rothman Glucose [Mass/Vol] 110 mg/dL Critically high 74-106 [facility] Comment on above: Performed By: #### T SH, BMP #### [facility] [address] [address] [address] Marilin Rothman Potassium [Moles/Vol] 4.6 mmol/L Normal 3.5-5.1 [facility] Comment on above: Performed By: #### T SH, BMP #### [facility] [address] [address] [address] Marilin Rothman Sodium [Moles/Vol] 137 mmol/L Normal 136-145 [facility] Comment on above: Performed By: #### T SH, BMP #### [facility] [address] [place] [address] Dr. Marilin Rothman Urea nitrogen [Mass/Vol] 18.0 mg/dL Normal 7.0-18.0 [facility] Comment on above: Performed By: #### T SH, BMP #### [facility] [address] [address] [address] Marilin Rothman Urea nitrogen/Creatinine [Mass ratio] 13.8 mg/mg Normal [facility] Comment on above: Performed By: #### T SH, BMP #### [facility] [address] [place] [address] Dr. Marilin Rothman TSHon 01-13-2023 TSH 0.951 uIU/mL Normal 0.358-3.740 [facility] Comment on above: Performed By: #### T SH, BMP #### [facility] [address] [place] [address] Dr. Marilin Rothman XR LSPINE W_OBLS AND [...] BRADY MORRIS Date: 2022-10-27 17:11 Normal [facility] CBC AUTO DIFFon 07-27-2022 BASO # 0.1 103/ul Normal 0.0-0.1 [facility] Comment on above: Performed By: #### T ALEXANDER, BMP #### [facility] [address] [place] [address] Dr. Marilin Rothman Basophils/100 WBC (Bld) 0.8 % Normal 0.2-2.0 [facility] Comment on above: Performed By: #### T ALEXANDER, BMP #### [facility] [address] [place] [address] Dr. Marilin Rothman EO # 0.1 103/ul Normal 0.0-0.7 [facility] Comment on above: Performed By: #### T ALEXANDER, BMP #### [facility] [address] [place] [address] Dr. Marilin Rothman Eosinophils/100 WBC (Bld) 2.2 % Normal 0.9-7.0 [facility] Comment on above: Performed By: #### T ALEXANDER, BMP #### [facility] [address] [place] [address] Dr. Marilin Rothman Erythrocyte distribution width (RBC) [Ratio] 13.2 % Normal 11.0-15.0 [facility] Comment on above: Performed By: #### T ALEXANDER, BMP #### [facility] [address] [place] [address] Dr. Marilin Rothman Hematocrit (Bld) [Volume fraction] 38.6 % Critically low 42.0-54.0 [facility] Comment on above: Performed By: #### T ALEXANDER, BMP #### [facility] [address] [place] [address] Dr. Marilin Rothman Hemoglobin (Bld) [Mass/Vol] 12.5 g/dL Critically low 14.0-18.0 [facility] Comment on above: Performed By: #### T SH, BMP #### [facility] [address] [place] [address] Dr. Marilin Rothman IG # 0.06 10e3/ul Critically high 0.00-0.03 [facility] Comment on above: Performed By: #### T SH, BMP #### [facility] [address] [place] [address] Dr. Marilin Rothman IG % 1.0 % Critically high 0.0-0.5 [facility] Comment on above: Performed By: #### T SH, BMP #### [facility] [address] [place] [address] Dr. Marilin Rothman LYMPH # 1.0 103/ul Critically low 1.2-3.8 [facility] Comment on above: Performed By: #### T SH, BMP #### [facility] [address] [place] [address] Dr. Marilin Rothman Lymphocytes/100 WBC (Bld) 15.9 % Critically low 20.5-60.0 [facility] Comment on above: Performed By: #### T SH, BMP #### [facility] [address] [place] [address] Dr. Marilin Rothman MANUAL DIFF REQ NO Normal [facility] Comment on above: Performed By: #### T SH, BMP #### [facility] [address] [place] [address] Dr. Marilin Rothman MCH (RBC) [Entitic mass] 32.2 pg Normal 25.9-34.0 [facility] Comment on above: Performed By: #### T SH, BMP #### [facility] [address] [place] [address] Dr. Marilin Rothman MCHC (RBC) [Mass/Vol] 32.4 g/dL Normal 29.9-35.2 [facility] Comment on above: Performed By: #### T SH, BMP #### [facility] [address] [place] [address] Dr. Marilin Rothman MCV (RBC) [Entitic vol] 99.5 fL Critically high 80.0-94 .0 [facility] Comment on above: Performed By: #### T SH, BMP #### [facility] [address] [place] [address] Dr. Marilin Rothman MONO # 0.8 103/ul Normal 0.3-0.8 [facility] Comment on above: Performed By: #### T SH, BMP #### [facility] [address] [place] [address] Dr. Marilin Rothman Monocytes/100 WBC (Bld) 12.9 % Critically high 1.7-12. 0 [facility] Comment on above: Performed By: #### T SH, BMP #### [facility] [address] [place] [address] Dr. Marilin Rothman NEUT # 4.2 103/ul Normal 1.4-6.5 [facility] Comment on above: Performed By: #### T SH, BMP #### [facility] [address] [place] [address] Dr. Marilin Rothman Neutrophils/100 WBC (Bld) 67.2 % Normal 43.0-75.0 [facility] Comment on above: Performed By: #### T SH, BMP #### [facility] [address] [place] [address] Dr. Marilin Rothman Platelet mean volume (Bld) [Entitic vol] 9.3 fL Critically low 9.5-13.5 [facility] Comment on above: Performed By: #### T SH, BMP #### [facility] [address] [place] [address] Dr. Marilin Rothman PLT 260 103/ul Normal 150-450 [facility] Comment on above: Performed By: #### T SH, BMP #### [facility] [address] [place] [address] Dr. Marilin Rothman RBC 3.88 106/ul Critically low 4.70-6.10 [facility] Comment on above: Performed By: #### T SH, BMP #### [facility] [address] [address] [address] Marilin Rothman WBC 6.3 103/ul Normal 4.0-11.0 [facility] Comment on above: Performed By: #### T SH, BMP #### [facility] [address] [address] [address] Marilin Rothman LIPID PROFILEon 07-27-2022 CHOL-HDL RATIO NORM SEE BELOW Normal [facility] Comment on above: Result Comment: 3.3 - 4.4 LOW RISK 4.4 - 7.1 AVERAGE RISK 7.1 - 11.0 MODERATE RISK >11.0 HIGH RISK Performed By: #### T SH, BMP #### [facility] [address] [place] [address] Dr. Marilin Rothman Cholesterol [Mass/Vol] 155 mg/dL Normal <=200 [facility] Comment on above: Performed By: #### T SH, BMP #### [facility] [address] [place] [address] Dr. Marilin Rothman Cholesterol in HDL [Mass/Vol] 76 mg/dL Critically high 40-60 [facility] Comment on above: Performed By: #### T SH, BMP #### [facility] [address] [place] [address] Dr. Marilin Rothman Cholesterol in LDL [Mass/Vol] 54.8 mg/dL Normal [facility] Comment on above: Performed By: #### T SH, BMP #### [facility] [address] [place] [address] Dr. Marilin Rothman Cholesterol.total/Grace sterol in HDL [Mass ratio] 2.0 {ratio} Normal [facility] Comment on above: Performed By: #### T SH, BMP #### [facility] [address] [place] [address] Dr. Marilin Rothman HDL NORMAL > or = 60 mg/dl - LO W CARDIOVASCULAR RISK <40 mg/dl - HIGH CARDIOVASCULAR RISK Normal [facility] Comment on above: Performed By: #### T SH, BMP #### [facility] [address] [place] [address] Dr. Marilin Rothman LDL CALC NORMAL SEE BELOW Normal [facility] Comment on above: Result Comment: <100 mg/dl OPTIMAL 100 - 129 mg/dl NEAR OR ABOVE OPTIMAL 130 - 159 mg/dl BORDERLINE HIGH 160 - 189 mg/dl HIGH >190 mg/dl VERY HIGH Performed By: #### T SH, BMP #### [facility] [address] [address] [address] Marilin Rothman Triglyceride [Mass/Vol] 121 mg/dL Normal <=150 [facility] Comment on above: Performed By: #### T SH, BMP #### [facility] [address] [address] [address] Marilin Rothman VLDL CALC 24.2 mg/dL Normal [facility] Comment on above: Performed By: #### T SH, BMP #### [facility] [address] [place] [address] Dr. Marilin Rothman LIVER PROFILEon 07-27-2022 Albumin [Mass/Vol] 3.9 g/dL Normal 3.4-5.0 [facility] Comment on above: Performed By: #### T SH, BMP #### [facility] [address] [place] [address] Dr. Marilin Rothman Albumin/Globulin [Mass ratio] 1.2 {ratio} Normal [facility] Comment on above: Performed By: #### T SH, BMP #### [facility] [address] [place] [address] Dr. Marilin Rothman ALP [Catalytic activity/Vol] 89 U/L Normal 46-116 [facility] Comment on above: Performed By: #### T SH, BMP #### [facility] [address] [place] [address] Dr. Marilin Rothman ALT [Catalytic activity/Vol] 26 U/L Normal 16-63 [facility] Comment on above: Performed By: #### T SH, BMP #### [facility] [address] [place] [address] Dr. Marilin Rothman AST [Catalytic activity/Vol] 17 U/L Normal 15-37 [facility] Comment on above: Performed By: #### T SH, BMP #### [facility] [address] [place] [address] Dr. Marilin Rothman BILI, CONJUGATED 0.2 mg/dL Normal 0.0-0.2 [facility] Comment on above: Performed By: #### T SH, BMP #### [facility] [address] [place] [address] Dr. Marilin Rothman Bilirubin [Mass/Vol] 0.6 mg/dL Normal 0.2-1.0 [facility] Comment on above: Performed By: #### T SH, BMP #### [facility] [address] [place] [address] Dr. Marilin Rothman Globulin (S) [Mass/Vol] 3.2 g/dL Normal [facility] Comment on above: Performed By: #### T SH, BMP #### [facility] [address] [place] [address] Dr. Marilin Rothman Protein [Mass/Vol] 7.1 g/dL Normal 6.4-8.2 [facility] Comment on above: Performed By: #### T SH, BMP #### [facility] [address] [place] [address] Dr. Marilin Rothman PROF CHEM 8 (BAS METB)on Anion gap [Moles/Vol] 13.7 mmol/L Normal [facility] Comment on above: Performed By: #### T SH, BMP #### [facility] [address] [place] [address] Dr. Marilin Rothman Calcium [Mass/Vol] 9.3 mg/dL Normal 8.5-10.1 [facility] Comment on above: Performed By: #### T SH, BMP #### [facility] [address] [place] [address] Dr. Marilin Rothman Chloride [Moles/Vol] 96 mmol/L Critically low 98-107 [facility] Comment on above: Performed By: #### T SH, BMP #### [facility] [address] [place] [address] Dr. Marilin Rothman CO2 [Moles/Vol] 25.9 mmol/L Normal 21.0-32.0 [facility] Comment on above: Performed By: #### T SH, BMP #### [facility] [address] [address] [address] Marilin Rothman Creatinine [Mass/Vol] 1.10 mg/dL Normal 0.70-1.30 [facility] Comment on above: Performed By: #### T SH, BMP #### [facility] [address] [address] [address] Marilin Rothman EGFR-AF MALDIVIAN >60 Normal >=60 [facility] Comment on above: Performed By: #### T SH, BMP #### [facility] [address] [address] [address] Marilin Rothman EGFR-NON AF MALDIVIAN >60 Normal >=60 [facility] Comment on above: Performed By: #### T SH, BMP #### [facility] [address] [place] [address] Dr. Marilin Rothman Glucose [Mass/Vol] 93 mg/dL Normal 74-106 [facility] Comment on above: Performed By: #### T SH, BMP #### [facility] [address] [address] [address] Marilin Rothman Potassium [Moles/Vol] 4.6 mmol/L Normal 3.5-5.1 [facility] Comment on above: Performed By: #### T SH, BMP #### [facility] [address] [place] [address] Dr. Marilin Rothman Sodium [Moles/Vol] 131 mmol/L Critically low 136-145 Th [facility] Comment on above: Performed By: #### T SH, BMP #### [facility] [address] [address] [address] Marilin Rothman Urea nitrogen [Mass/Vol] 14.0 mg/dL Normal 7.0-18.0 [facility] Comment on above: Performed By: #### T SH, BMP #### [facility] [address] [place] [address] Dr. Marilin Rothman Urea nitrogen/Creatinine [Mass ratio] 12.7 mg/mg Normal [facility] Comment on above: Performed By: #### T SH, BMP #### [facility] [address] [place] [address] Dr. Marilin Rothman TSHon 07-27-2022 TSH 1.933 uIU/mL Normal 0.358-3.740 [facility] Comment on above: Performed By: #### T SH, BMP #### [facility] [address] [place] [address] Dr. Marilin Rothman VITAMIN D 25 OHon 07-27-2022 VIT D 25-OH 85.4 ng/mL Normal [facility] Comment on above: Performed By: #### T SH, BMP #### [facility] [address] [place] [address] Dr. Marilin Rothman VIT D RANGES SEE BELOW [facility] Comment on above: Result Comment: <20 ng/mL Vit D deficient 20 - <30 ng/mL Vit D insufficient 30 - 100 ng/mL Vit D sufficient >100 ng/mL Potential Toxicity Performed By: #### T SH, BMP #### [facility] [address] [place] [address] Dr. Marilin Rothman ACID FAST SMEAR AND CXon Acid Fast Culture Negative Normal [facility] Comment on above: Result Comment: No a amos fast bacilli isolated after 6 weeks. Performed By: #### T SH, BMP #### [facility] [address] [place] [address] Dr. Marilin Rothman Acid Fast Smear Negative Normal [facility] Comment on above: Performed By: #### T SH, BMP #### [facility] [address] [place] [address] Dr. Marilin Rothman [employer] Specimen Processing Direct Inoculation Normal [facility] Comment on above: Performed By: #### T SH, BMP #### [facility] [address] [place] [address] Dr. Marilin Rothman FUNGAL CULTUREon 04-09-2022 Fungus (Mycology) Culture Final report Normal [facility] Comment on above: Performed By: #### C XFUN #### [facility] [address] [place] [address] Dr. Marilin Rothman Fungus Stain Final report Normal [facility] Comment on above: Performed By: #### C XFUN #### [facility] [address] [place] [address] Dr. Marilin Rothman Result 1 Comment Normal [facility] Comment on above: Result Comment: RITA/ Calcofluor preparation: no fungus observed. Performed By: #### C XFUN #### [facility] [address] [place] [address] Dr. Marilin Rothman Result Comment: No y east or mold isolated after 4 weeks. LOWER RESPIRATORY CULTUREon 03-14-2022 Lower Respiratory Culture Final report Normal [facility] Comment on above: Performed By: #### C XLORES #### [facility] [address] [place] [address] Dr. Marilin Rothman Result 1 Comment Normal [facility] Comment on above: Result Comment: Rout ine respiratory carlito Performed By: #### C XLORES #### [facility] [address] [place] [address] Dr. Marilin Rothman CYTOLOGYon 03-11-2022 SENT TO REF LAB 03/12/22 Normal [facility] Comment on above: Performed By: #### C YTO #### [facility] [address] [place] [address] Dr. Marilin Rothman GRAM STAINon 03-11-2022 COMMENTS NO ORGANISMS OBSERVED Normal [facility] Comment on above: Performed By: #### G STAIN #### [facility] [address] [place] [address] Dr. Marilin Rothman DIPHTHEROIDS Normal [facility] Comment on above: Performed By: #### G STAIN #### [facility] [address] [place] [address] Dr. Marilin Rothman EPITHELIALS FEW Normal [facility] Comment on above: Performed By: #### G STAIN #### [facility] [address] [place] [address] Dr. Marilin Rothman FUNGAL ELEMENTS Normal [facility] Comment on above: Performed By: #### G STAIN #### [facility] [address] [place] [address] Dr. Marilin Rothman GRAM NEG BACILLI Normal [facility] Comment on above: Performed By: #### G STAIN #### [facility] [address] [address] [address] Marilin Rothman GRAM NEG DIPPLOCOCCI Normal [facility] Comment on above: Performed By: #### G STAIN #### [facility] [address] [place] [address] Dr. Marilin Rothman GRAM POS BACILLI Normal [facility] Comment on above: Performed By: #### G STAIN #### [facility] [address] [address] [address] Marilin Rothman GRAM POSITIVE COCCI Normal [facility] Comment on above: Performed By: #### G STAIN #### [facility] [address] [place] [address] Dr. Marilin Rothman GRAM STAIN SOURCE R. LOWER LOBE LAVAGE [facility] Comment on above: Performed By: #### G STAIN #### [facility] [address] [place] [address] Dr. Marilin Rothman GS_DIPTH [facility] Comment on above: Performed By: #### G STAIN #### [facility] [address] [place] [address] Dr. Marilin Rothman WBC FEW Normal [facility] Comment on above: Performed By: #### G STAIN #### [facility] [address] [place] [address] Dr. Marilin Rothman IMMUNOGLOBULIN E, TOTALon Immunoglobulin E, Total 129 IU/mL Normal 6-495 [facility] Comment on above: Performed By: #### I GETOT #### [facility] [address] [place] [address] Dr. Marilin Rothman CBC AUTO DIFFon 03-01-2022 BASO # 0.1 103/ul Normal 0.0-0.1 [facility] Comment on above: Performed By: #### T SH, BMP #### [facility] [address] [place] [address] Dr. Marilin Rothman Basophils/100 WBC (Bld) 0.9 % Normal 0.2-2.0 [facility] Comment on above: Performed By: #### T SH, BMP #### [facility] [address] [place] [address] Dr. Marilin Rothman EO # 0.7 103/ul Normal 0.0-0.7 [facility] Comment on above: Performed By: #### T SH, BMP #### [facility] [address] [place] [address] Dr. Marilin Rothman Eosinophils/100 WBC (Bld) 9.2 % Critically high 0.9-7.0 [facility] Comment on above: Performed By: #### T SH, BMP #### [facility] [address] [place] [address] Dr. Marilin Rothman Erythrocyte distribution width (RBC) [Ratio] 13.0 % Normal 11.0-15.0 [facility] Comment on above: Performed By: #### T SH, BMP #### [facility] [address] [place] [address] Dr. Marilin Rothman Hematocrit (Bld) [Volume fraction] 39.5 % Critically low 42.0-54.0 [facility] Comment on above: Performed By: #### T SH, BMP #### [facility] [address] [place] [address] Dr. Marilin Rothman Hemoglobin (Bld) [Mass/Vol] 13.0 g/dL Critically low 14.0-18.0 [facility] Comment on above: Performed By: #### T SH, BMP #### [facility] [address] [place] [address] Dr. Marilin Rothman IG # 0.03 10e3/ul Normal 0.00-0.03 [facility] Comment on above: Performed By: #### T SH, BMP #### [facility] [address] [place] [address] Dr. Marilin Rothman IG % 0.4 % Normal 0.0-0.5 [facility] Comment on above: Performed By: #### T SH, BMP #### [facility] [address] [place] [address] Dr. Marilin Rothman LYMPH # 1.1 103/ul Critically low 1.2-3.8 [facility] Comment on above: Performed By: #### T SH, BMP #### [facility] [address] [place] [address] Dr. Marilin Rothman Lymphocytes/100 WBC (Bld) 14.2 % Critically low 20.5-60.0 [facility] Comment on above: Performed By: #### T SH, BMP #### [facility] [address] [place] [address] Dr. Marilin Rothman MANUAL DIFF REQ NO Normal [facility] Comment on above: Performed By: #### T SH, BMP #### [facility] [address] [place] [address] Dr. Marilin Rothman MCH (RBC) [Entitic mass] 32.2 pg Normal 25.9-34.0 [facility] Comment on above: Performed By: #### T SH, BMP #### [facility] [address] [place] [address] Dr. Marilin Rothman MCHC (RBC) [Mass/Vol] 32.9 g/dL Normal 29.9-35.2 [facility] Comment on above: Performed By: #### T SH, BMP #### [facility] [address] [place] [address] Dr. Marilin Rothman MCV (RBC) [Entitic vol] 97.8 fL Critically high 80.0-94 .0 [facility] Comment on above: Performed By: #### T SH, BMP #### [facility] [address] [place] [address] Dr. Marilin Rothman MONO # 0.9 103/ul Critically high 0.3-0.8 [facility] Comment on above: Performed By: #### T SH, BMP #### [facility] [address] [place] [address] Dr. Marilin Rothman Monocytes/100 WBC (Bld) 11.8 % Normal 1.7-12.0 [facility] Comment on above: Performed By: #### T SH, BMP #### [facility] [address] [place] [address] Dr. Marilin Rothman NEUT # 4.7 103/ul Normal 1.4-6.5 [facility] Comment on above: Performed By: #### T SH, BMP #### [facility] [address] [address] [address] Marilin Rothman Neutrophils/100 WBC (Bld) 63.5 % Normal 43.0-75.0 [facility] Comment on above: Performed By: #### T ALEXANDER, BMP #### [facility] [address] [place] [address] Dr. Marilin Rothman Platelet mean volume (Bld) [Entitic vol] 8.7 fL Critically low 9.5-13.5 [facility] Comment on above: Performed By: #### T ALEXANDER, BMP #### [facility] [address] [place] [address] Dr. Marilin Rothman PLT 250 103/ul Normal 150-450 [facility] Comment on above: Performed By: #### T ALEXANDER, BMP #### [facility] [address] [place] [address] Dr. Marilin Rothman RBC 4.04 106/ul Critically low 4.70-6.10 [facility] Comment on above: Performed By: #### T ALEXANDER, BMP #### [facility] [address] [place] [address] Dr. Marilin Rothman WBC 7.5 103/ul Normal 4.0-11.0 [facility] Comment on above: Performed By: #### T ALEXANDER, BMP #### [facility] [address] [place] [address] Dr. Marilin Rothman PROTIMEon 03-01-2022 INR Coag (PPP) [Relative time] 0.97 {INR} Normal [facility] Comment on above: Performed By: #### T ALEXANDER, BMP #### [facility] [address] [place] [address] Dr. Marilin Rothman INR GUIDELINES SEE BELOW Normal [facility] Comment on above: Result Comment: TOAN RED INR: 2.0 - 3.0 CONDITIONS NOT LISTED BELOW 2.5 - 3.5 FOR PROSTHETIC HEART VALVE REPLACEMENT 2.5 - 3.5 RECURRENT THROMBOSIS Performed By: #### T SH, BMP #### [facility] [address] [place] [address] Dr. Marilin Rothman PT Coag (PPP) [Time] 10.5 s Normal 9.0-11.6 [facility] Comment on above: Performed By: #### T SH, BMP #### [facility] [address] [place] [address] Dr. Marilin Rothman PTTon 03-01-2022 aPTT Coag (Bld) [Time] 27.5 s Normal 22.3-36.2 [facility] Comment on above: Performed By: #### T SH, BMP #### [facility] [address] [place] [address] Dr. Marilin Rothman ASPERGILLUS AB, QUANTITATIVE DIDon 02-28-2022 Aspergillus flavus Negative Normal Neg:<1:1 [facility] Comment on above: Performed By: #### T SH, BMP #### [facility] [address] [place] [address] Dr. Marilin Rothman Aspergillus fumigatus Negative Normal Neg:<1:1 [facility] Comment on above: Performed By: #### T SH, BMP #### [facility] [address] [place] [address] Dr. Marilin Rothman Aspergillus niger Negative Normal Neg:<1:1 [facility] Comment on above: Performed By: #### T SH, BMP #### [facility] [address] [place] [address] Dr. Marilin Rothman ANTI NEUTROPHIL CYTOPLASMIC AB (ANCA) PRon 02-26-2022 Antimyeloperoxidase (MPO) Abs <9.0 Normal 0.0-9.0 [facility] Comment on above: Result Comment: Perf ormed at: BN Performed By: #### A NCAP #### [facility] [address] [place] [address] Dr. Marilin Rothman Antiproteinase 3 (FL-3) Abs <3.5 Normal 0.0-3.5 [facility] Comment on above: Result Comment: Perf ormed at: BN Performed By: #### A NCAP #### [facility] [address] [address] [address] Marilin Rohtman Atypical pANCA <1:20 Normal Neg:<1:20 [facility] Comment on above: Result Comment: The atypical pANCA pattern has been observed in a significant percentage of patients with ulcerative colitis, primary sclerosing cholangitis and autoimmune hepatitis. Performed at: CB Performed By: #### A NCAP #### [facility] [address] [place] [address] Dr. Marilin Rothman Cytoplasmic (C-ANCA) <1:20 Normal Neg:<1:20 [facility] Comment on above: Result Comment: Perf ormed at: CB Performed By: #### A NCAP #### [facility] [address] [place] [address] Dr. Marilin Rothman Perinuclear (P-ANCA) <1:20 Normal Neg:<1:20 [facility] Comment on above: Result Comment: The presence of positive fluorescence exhibiting P-ANCA or C-ANCA patterns alone is not specific for the diagnosis of Antwan's Granulomatosis (WG) or microscopic polyangiitis. Decisions about treatment should not be based solely on ANCA IFA results. The International ANCA Group Consensus recommends follow up testing of positive sera with both FL-3 and MPO-ANCA enzyme immunoassays. As many as 5% serum samples are positive only by EIA. Ref. AM J Clin Pathol 1999;111:507-513. Performed at: CB Performed By: #### A NCAP #### [facility] [address] [place] [address] LUNG CANCER SCREENINGon [...] BRADY MORRIS Date: 2022-02-24 11:30 Normal [facility] CHEM 8 (BAS METB)on Anion gap [Moles/Vol] 8.6 mmol/L Normal [facility] Comment on above: Performed By: #### B MP #### [facility] [address] [place] [address] Dr. Marilin Rothman Calcium [Mass/Vol] 9.0 mg/dL Normal 8.5-10.1 [facility] Comment on above: Performed By: #### B MP #### [facility] [address] [address] [address] Marilin Rothman Chloride [Moles/Vol] 100 mmol/L Normal 98-107 [facility] Comment on above: Performed By: #### B MP #### [facility] [address] [address] [address] Marilin Rothman CO2 [Moles/Vol] 30.5 mmol/L Normal 21.0-32.0 [facility] Comment on above: Performed By: #### B MP #### [facility] [address] [address] [address] Marilin Rothman Creatinine [Mass/Vol] 1.35 mg/dL Critically high 0.70-1.30 [facility] Comment on above: Performed By: #### B MP #### [facility] [address] [address] [address] Marilin Rothman EGFR-AF MALDIVIAN >60 Normal >=60 [facility] Comment on above: Performed By: #### B MP #### [facility] [address] [address] [address] Marilin Rothman EGFR-NON AF MALDIVIAN 52 mL/min/1.73m2 Critically low >=60 [facility] Comment on above: Performed By: #### B MP #### [facility] [address] [address] [address] Marilin Rothman Glucose [Mass/Vol] 100 mg/dL Normal 74-106 [facility] Comment on above: Performed By: #### B MP #### [facility] [address] [address] [address] Marilin Rothman Potassium [Moles/Vol] 4.1 mmol/L Normal 3.5-5.1 [facility] Comment on above: Performed By: #### B MP #### [facility] [address] [address] [address] Marilin Rothman Sodium [Moles/Vol] 135 mmol/L Critically low 136-145 [facility] Comment on above: Performed By: #### B MP #### [facility] [address] [address] [address] Marilin Rothman Urea nitrogen [Mass/Vol] 13.0 mg/dL Normal 7.0-18.0 [facility] Comment on above: Performed By: #### B MP #### [facility] [address] [address] [address] Marilin Rothman Urea nitrogen/Creatinine [Mass ratio] 9.6 mg/mg Normal [facility] Comment on above: Performed By: #### B MP #### [facility] [address] [address] [address] Marilin Rothman Cardiovascular Lab Reporton 08-22-2020 Cardiovascular Lab Report [facility] Patient Name: Huy Osei [facility] MR #: [id number] Physician: Sanket Reyes M.D. Department of Service Date: 08/21/2020 Medicine Birthdate: 1950 Division of Room #: CC Cardiology Adult Cardiovascular Services [facility] [address] [facility] [place], [place] [address] Cardiovascular Laboratory Report COMPRESS MACHINE OPERATOR: Aron Anderson M.D. FINAL IMPRESSION: Successful angioplasty, [...] inner cannula was then exchanged for a 5-Monegasque sheath. Through the 5-Monegasque sheath, a Uni-Flush catheter was introduced into the abdominal aorta and the aortic bifurcation was traversed using a 0.035 hydrophilic guidewire. Next, the catheter was then placed in the right femoral artery and angiography was performed. A guidewire exchange was then performed removing the catheter and sheath and replacing these with a 6-Monegasque Renaldo through which a NaviCross was introduced [...] exchanged for an Renaldo sheath with a [employer]-Kenroy Adapter. Through this, a 6 mm x [...] was achieved. Final angiography was performed. A 6-Monegasque Angio-Seal was deployed. Adequate hemostasis was achieved. [...] Reyes M.D. Date Trans: 08/22/2020 02:59 A/noreen [id number] cc: Pool Garcia M.D. [address] [facility] [address] Normal [facility] Cardiovascular Lab Reporton 05-06-2020 Cardiovascular Lab Report [facility] Patient Name: Huy Osei [facility] MR #: [id number] Physician: Aron Daniel of [facility] Medicine Service Date: 05/05/2020 Division of Birthdate: 1950 Cardiology Room #: 3CD [id number] Adult Cardiovascular Services [place] [address] Cardiovascular Laboratory Report INDICATION: The patient is [...] right superficial femoral artery. 6. Use of Rogers IVUS-guided reentry catheter. 7. 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 METHODS: Procedure was explained to the patient with risks and benefits. He signed informed consent. 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 The left groin area was prepped and draped in usual fashion. Using ultrasound guidance and micropuncture technique, the left common femoral artery was accessed. The inner cannula was advanced. Limited left femoral angiography was performed followed by upsizing to a 6-Monegasque x 11 cm sheath. Next, a 5-Monegasque Uni-Flush catheter was advanced and placed in the distal abdominal aorta. An angled Glidewire was then used to cross the aortoiliac bifurcation and the catheter was advanced to the level of the right common femoral artery and then over a Magic Torque wire, this was exchanged along with the access sheath to a 6-Monegasque x 55 cm Renaldo sheath. Right lower [...] At that time, we advanced an angled Houston catheter through the antegrade sheath over a straight Glidewire and we crossed subintimally proximally and advanced to the proximal to mid segment of the SFA. We advanced a qa software tester 5 x 40 mm balloon and used that balloon to perform reverse CART technique with multiple inflations using that balloon as well as an NC Quantum Twining 3.0 x 15 mm noncompliant balloon advanced through the retrograde wire for CART technique. Repeated multiple inflations and multiple attempts were performed at multiple levels. However, we were not able to join the 2 subintimal spaces and therefore, we abandoned this technique. We decided to go with the Rogers reentry catheter from the antegrade access. This was then advanced to the subintimal space in the mid SFA over a Clinton wire and using the standard technique, we identified under intravascular ultrasound the true lumen and once this was positioned in the 12 o'clock position, the needle was advanced the appropriate amount and after 2 attempts, the Clinton wire was able to advance into the true lumen. This was confirmed as the wire came in parallel with the retrograde wire. However, at this point, while trying to remove the Rogers catheter, the Clinton wire got kinked and entangled, and we were not able to retrieve the Rogers catheter over the wire and we had to remove the both wire and Rogers catheter assembly together and therefore, lost access into the true lumen. We repeated this process again and we are able to advance the Rogers catheter into position and multiple attempts at this point were made to gain access into the true lumen, however, those failed and we had to retrieve the Rogers catheter and terminate the procedure at this time. The Rogers catheter and the Renaldo sheath were removed [...] He will be admitted for overnight observation. SANE RN: Shazhad Caballero MD. TOTAL FLUORO TIME: 101.28 minutes. [...] Anderson M.D. Date Trans: 05/06/2020 05:57 A/noreen [id number] cc: Pool Garcia M.D. [address] [facility] [address] Normal [facility] APTTon 04-17-2020 aPTT Coag (Bld) [Time] 27.5 s Normal 25.0-35.0 Th e [facility] Comment on above: Order Comment: This order is a replacement of the rejected order with accession [id number]. Result Comment: ALL RESULTS MUST BE INTERPRETED [...] PURPOSE. Performed By: #### 6 2586 #### [facility] [place] [address], [facility] BASIC METABOLIC PANELon 06-2 Calcium [Mass/Vol] 8.4 mg/dL Low 8.6-10.3 [facility] Comment on above: Order Comment: No: D o not add to previous draw Performed By: #### 6 2586 #### [facility] [address] [place] [address], [place] Chloride [Moles/Vol] 98 mmol/L Normal 98-107 [facility] Comment on above: Order Comment: No: D o not add to previous draw Performed By: #### 6 2586 #### [facility] [address] [place] [address], [place] CO2 [Moles/Vol] 25 mmol/L Normal 21-31 [facility] Comment on above: Order Comment: No: D o not add to previous draw Performed By: #### 6 2586 #### [facility] [address] [place] [address], [place] Creatinine [Mass/Vol] 1.26 mg/dL Normal 0.70-1.30 [facility] Comment on above: Order Comment: No: D o not add to previous draw Performed By: #### 6 2586 #### [facility] [address] [place] [address], [place] GFR/1.73 sq M predicted among blacks MDRD (S/P/Bld) [Vol rate/Area] mL/min/{1.73_m2} Normal >60 [facility] Comment on above: Order Comment: No: D o not add to previous draw Result Comment: Calc ulation may not be valid for patients over 70 years Performed By: #### 6 2586 #### [facility] [address] [place] [address], [place] GFR/1.73 sq M predicted among non-blacks MDRD (S/P/Bld) [Vol rate/Area] 56 ml/min/1.73sq m Abnormal >60 [facility] Comment on above: Order Comment: No: D o not add to previous draw Result Comment: Calc ulation may not be valid for patients over 70 years Performed By: #### 6 2586 #### [facility] [address] [place] [address], [place] Glucose [Mass/Vol] 123 mg/dL High 70-100 [facility] Comment on above: Order Comment: No: D o not add to previous draw Performed By: #### 6 2586 #### [facility] [address] [place] [address], [place] Potassium [Moles/Vol] 3.6 mmol/L Normal 3.5-5.1 [facility] Comment on above: Order Comment: No: D o not add to previous draw Performed By: #### 6 2586 #### [facility] [address] [place] [address], [place] Sodium [Moles/Vol] 129 mmol/L Low 136-145 [facility] Comment on above: Order Comment: No: D o not add to previous draw Performed By: #### 6 2586 #### [facility] [address] [place] [address], [facility] Urea nitrogen [Mass/Vol] 14 mg/dL Normal 7-25 [facility] Comment on above: Order Comment: No: D o not add to previous draw Performed By: #### 6 2586 #### [facility] [address] [place] [address], [facility] CBC COMPLETE BLOOD COUNTon 0 - Erythrocyte distribution width (RBC) [Ratio] 14.2 % Normal 11.5-15.0 [facility] Comment on above: Order Comment: No: D o not add to previous draw Performed By: #### 6 2586 #### [facility] [address] [place] [address], [place] Hematocrit (Bld) [Volume fraction] 32.2 % Low 39.0-50.0 [facility] Comment on above: Order Comment: No: D o not add to previous draw Performed By: #### 6 2586 #### [facility] [address] [place] [address], [facility] Hemoglobin (Bld) [Mass/Vol] 10.8 g/dL Low 13.0-17.0 [facility] Comment on above: Order Comment: No: D o not add to previous draw Performed By: #### 6 2586 #### [facility] [address] [place] [address], [facility] MCH (RBC) [Entitic mass] 32.7 pg Normal 27.0-33.0 [facility] Comment on above: Order Comment: No: D o not add to previous draw Performed By: #### 6 2586 #### [facility] [address] [place] [address], [facility] MCHC (RBC) [Mass/Vol] 33.5 g/dL Normal 32.0-35.0 [facility] Comment on above: Order Comment: No: D o not add to previous draw Performed By: #### 6 2586 #### [facility] [address] [place] [id number], [facility] MCV (RBC) [Entitic vol] 97.6 fL Normal 82.0-98.0 [facility] Comment on above: Order Comment: No: D o not add to previous draw Performed By: #### 6 2586 #### [facility] [address] [place] [address], [facility] Nucleated RBC/100 WBC (Bld) [Ratio] 0 % Normal 0-0 [facility] Comment on above: Order Comment: No: D o not add to previous draw Performed By: #### 6 2586 #### [facility] [address] [place] [address], [facility] PLAT CNT 217 10*3/uL Normal 150-400 [facility] Comment on above: Order Comment: No: D o not add to previous draw Performed By: #### 6 2586 #### [facility] [address] [facility] [place] [address], [facility] RBC (Bld) [#/Vol] 3.30 10*6/uL Low 4.20-5.70 [facility] Comment on above: Order Comment: No: D o not add to previous draw Performed By: #### 6 2586 #### [facility] [address] [facility] [place] [address], [facility] WBC (Bld) [#/Vol] 7.83 10*3/uL Normal 4.00-10.60 [facility] Comment on above: Order Comment: No: D o not add to previous draw Performed By: #### 6 2586 #### [address] ABDOMEN AND PELVIS WO CON TRASTon 04-17-2020 CT ABDOMEN AND PELVIS WO CONTRAST [facility] Department of Radiology [address] [place] [id number] Patient Name: HUY OSEI : 1950 Sex: M Age: Race: White Pt. Location: [id number] Patient Status: O Ordered Date: 04/17/2020 12:55:00 [...] reports Electronically signed: Eliud Mcguire. Transcribed by: [email or web address], User Resident: ALEXYS NELSON Electronically Signed by: ELIUD MCGUIRE @ 04/17/2020 02:34 AM I personally read this/these film(s) with this resident Normal The [facility] Comment on above: Order Comment: Hemat alyssa, s/p cardiac cath, now hypotensive, r/o retroperitoneal bleed. Cardiovascular Lab Reporton 04-17-2020 Cardiovascular Lab Report [facility] Patient Name: Huy Osei [facility] MR #: [id number] Physician: Aron Daniel of [facility] Medicine Service Date: 04/16/2020 Division of Birthdate: 1950 Cardiology Room #: [id number] Adult Cardiovascular Services [place] [address] Cardiovascular Laboratory Report INDICATION: Huy Osei is [...] signed informed consent. 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 The left groin area was prepped and draped in usual fashion. Using micropuncture technique and ultrasound guidance, the left common femoral artery was accessed. The inner cannula was advanced, limited femoral angiography was performed followed by upsizing to a 5-Monegasque x 11 cm sheath. Left lower extremity angiography was performed down to the level of the foot. A 5-Monegasque UniFlush catheter was advanced and placed in [...] the catheter and access sheath to a 6-Monegasque Renaldo sheath. Using an angled Glidewire mounted [...] retracted and removed and exchanged to a 6-Monegasque x 11 cm sheath. The patient tolerated [...] Anderson M.D. Date Trans: 04/17/2020 06:23 A/noreen [id number] Normal [facility] LACTATE BLOODon 04-17-2020 Lactate [Moles/Vol] 0.9 mmol/L Normal 0.5-2.2 [facility] Comment on above: Order Comment: No: D o not add to previous draw Performed By: #### 6 2586 #### [facility] [address] [place] [address], [facility] PERFUSION BLOOD PANELon 03-25 BASE EXCESS 0.0 mmol/L Normal -2.0-3.0 [facility] Comment on above: Performed By: #### 3 0738 #### [facility] [address] [place] [address], [place] Glucose [Mass/Vol] 118 mg/dL High 70-105 [facility] Comment on above: Performed By: #### 3 0738 #### [facility] [address] [place] [address], [place] Hematocrit (Bld) [Volume fraction] 36 % Low 38-51 [facility] Comment on above: Performed By: #### 3 0738 #### [facility] [address] [place] [address], [place] Hemoglobin (Bld) [Mass/Vol] 12.2 g/dL Normal 12.0-17.0 [facility] Comment on above: Performed By: #### 3 0738 #### [facility] [address] [place] [address], [place] IONIZED CALCIUM 1.23 mmol/L Normal 1.12-1.32 [facility] Comment on above: Performed By: #### 3 0738 #### [facility] [address] [place] [address], [place] Oxygen (Bld) [Partial pressure] 31.0 mm[Hg] Normal [facility] Comment on above: Performed By: #### 3 0738 #### [facility] [address] [place] [address], [place] PCO2 42.2 mmHg Normal 41.0-51.0 [facility] Comment on above: Performed By: #### 3 0738 #### [facility] [address] [place] [address], [place] pH (Bld) 7.38 [pH] Normal 7.31-7.41 [facility] Comment on above: Performed By: #### 3 0738 #### [facility] [address] [place] [address], [place] Potassium [Moles/Vol] 3.9 mmol/L Normal 3.5-4.9 [facility] Comment on above: Performed By: #### 3 0738 #### [facility] [address] [place] [address], [facility] Sodium [Moles/Vol] 132 mmol/L Low 138-146 [facility] Comment on above: Performed By: #### 3 0738 #### [facility] [address] [facility] [facility] POC GLUCOSE LABon 04-17-2020 Glucose [Mass/Vol] 126 mg/dL High 70-100 [facility] Comment on above: Performed By: #### 8 5499 #### [facility] [address] PROTHROMBIN TIMEon 0 INR Coag (PPP) [Relative time] 1.02 {INR} Normal 0.91-1.16 [facility] Comment on above: Order Comment: This order is a replacement of the rejected order with accession [id number] PATIENT NOT IN ROOM; WENT TO CT. [...] 1995;108:231S-246S. Performed By: #### 6 2586 #### [facility] [address] [facility]. [address] PT Coag (PPP) [Time] 13.4 s Normal 12.3-14.8 [facility] Comment on above: Order Comment: This order is a replacement of the rejected order with accession [id number] PATIENT NOT IN ROOM; WENT TO CT. Result Comment: ALL RESULTS MUST BE INTERPRETED WITH RESPECT TO BLOOD DRAWING ARTIFACT OR DILUTION ERROR OF ANTICOAGULANT AT THE TIME OF SAMPLING. Performed By: #### 6 2585 #### [facility] [address] [facility]. [address] TROPONIN-Ion 04-17-2020 Troponin I.cardiac [Mass/Vol] 0.01 ng/mL Normal 0.00-0.04 [facility] Comment on above: Order Comment: No: D o not add to previous draw Result Comment: REFE RENCE RANGES: 0.00 - 0.04 ng/ml NORMAL 0.05 - 0.50 ng/ml INDETERMINATE > 0.50 ng/ml CONSISTENT WITH AN M.I. Performed By: #### 6 2585 #### [facility] [address] TYPE AND SCREENon 04-17-2020 ABO INTERPRETATION A Normal [facility] Comment on above: Performed By: #### 0 2024 #### [facility] [address] [facility]. [address] RH INTERPRETATION Positive Normal [facility] Comment on above: Performed By: #### 0 2024 #### [facility] [address] C REACTIVE PROTEINon 020 CRP [Mass/Vol] 13.5 mg/L High 0.0-7.0 [facility] Comment on above: Performed By: #### 0 2024 #### [facility] [address] CBC W/DIFFon 12-12-2019 ABS BASOPHILS 0.1 10*3/uL Normal 0.0-0.2 [facility] Comment on above: Performed By: #### 5 010, 748[address] #### [facility] [address] [facility] [place] [address], [facility] ABS IMM GRANS 0.1 10*3/uL Normal 0.0-0.2 [facility] Comment on above: Performed By: #### 5 010, [address] #### [facility] [address] ABS NEUTROPHILS 4.3 10*3/uL Normal 1.6-7.6 [facility] Comment on above: Performed By: #### 5 102, [address] #### [facility] [address] [facility]. [address] Basophils/100 WBC (Bld) 0.8 % Normal 0.0-1.0 T esau [facility] Comment on above: Performed By: #### 5 102, [address] #### [facility] [address] [place] [address], [facility] Eosinophils (Bld) [#/Vol] 0.3 10*3/uL Normal 0.0-0.5 [facility] Comment on above: Performed By: #### 5 102, 78974 #### [facility] [address] [facility] [place] [address], [facility] Eosinophils/100 WBC (Bld) 4.6 % Normal 0.0-6.0 [facility] Comment on above: Performed By: #### 5 102, [address] #### [facility] [address] [facility]. [address] Erythrocyte distribution width (RBC) [Ratio] 14.0 % Normal 11.5-15.0 [facility] Comment on above: Performed By: #### 5 102, [address] #### [facility] [address] [place] [address], [facility] Hematocrit (Bld) [Volume fraction] 36.9 % Low 39.0-50.0 [facility] Comment on above: Performed By: #### 102, 022[address] #### [facility] [address] [place] [address], [facility] Hemoglobin (Bld) [Mass/Vol] 12.2 g/dL Low 13.0-17.0 [facility] Comment on above: Performed By: #### 102, 03044 #### [facility] [address] [facility] [place] [address], [facility] IMMATURE GRANS 0.9 % Normal 0.0-1.0 [facility] Comment on above: Performed By: #### 102, 01307 #### [facility] [address] [place] [address], [facility] Lymphocytes (Bld) [#/Vol] 1.0 10*3/uL Low 1.2-4.0 [facility] Comment on above: Performed By: #### 5 102, 02358 #### [facility] [address] [place] [address], [facility] Lymphocytes/100 WBC (Bld) 15.5 % Low 20.0-45.0 [facility] [facility] Comment on above: Performed By: #### 102, [id number] #### [facility] [address] [place] [address], [facility] MCH (RBC) [Entitic mass] 30.9 pg Normal 27.0-33.0 [facility] Comment on above: Performed By: #### 102, 28163 #### [facility] [address] [place] [address], [facility] MCHC (RBC) [Mass/Vol] 33.1 g/dL Normal 32.0-35.0 [facility] Comment on above: Performed By: #### 5 102, 27503 #### [facility] [address] [place] [address], [facility] MCV (RBC) [Entitic vol] 93.4 fL Normal 82.0-98.0 T he [facility] Comment on above: Performed By: #### 5 102, 08948 #### [facility] [address] [address], [facility] Monocytes (Bld) [#/Vol] 0.7 10*3/uL Normal 0.1-1.0 [facility] Comment on above: Performed By: #### 5 102, 88201 #### [facility] [address] [place] [address], [facility] MONOS 10.3 % Normal 5.0-12.0 [facility] Comment on above: Performed By: #### 5 102, 72361 #### [facility] [address] [place] [address], [facility] Neutrophils/100 WBC (Bld) 67.9 % Normal 40.0-72.0 [facility] Comment on above: Performed By: #### 5 102, 92071 #### [facility] [address] [place] [address], [facility] Nucleated RBC/100 WBC (Bld) [Ratio] 0 % Normal 0-0 [facility] Comment on above: Performed By: #### 5 102, 81872 #### [facility] [address] [place] [address], [facility] PLAT CNT 215 10*3/uL Normal 150-400 [facility] Comment on above: Performed By: #### 5 102, 10802 #### [facility] [address] [place] [address], [facility] RBC (Bld) [#/Vol] 3.95 10*6/uL Low 4.20-5.70 [facility] Comment on above: Performed By: #### 5 0103, 04301 #### [facility] [address] WBC (Bld) [#/Vol] 6.33 10*3/uL Normal 4.00-10.60 [facility] Comment on above: Performed By: #### 5 0103, 40832 #### [facility] [address] SEDIMENTATION RATEon 020 SED RATE 30 mm/hr High 0-10 [facility] Comment on above: Performed By: #### 0 2024 #### [facility] [address] Operative Reporton 0 Operative Report MR#: [id number] S [facility] Pt. Name: Huy Osei Room #: [...] edges using a scalpel followed by a Volcano and curette. We debrided down to the [...] by: Andrews Collier M.D. 12/09/2019 11:01 A Andrwes Collier M.D. I was present for the entire procedure. Date Dict: 11/26/2019/12:51 P/Jose Manuel Waddell MD Date Trans: 11/26/2019 11:48 P/noreen [id number] Normal [facility] APTTon 11-26-2019 aPTT Coag (Bld) [Time] 29.8 s Normal 25.0-35.0 Th e [facility] Comment on above: Result Comment: ALL [...] PURPOSE. Performed By: #### 0 2024 #### [facility] [address] POC GLUCOSE LABon 11-26-2019 Glucose [Mass/Vol] 100 mg/dL Normal 70-100 [facility] Comment on above: Performed By: #### 8 6002 #### [facility] [address] [facility]. [address] PROTHROMBIN TIMEon 0 INR Coag (PPP) [Relative time] 0.99 {INR} Normal 0.91-1.16 [facility] Comment on above: Result Comment: ACCC P [...] 1995;108:231S-246S. Performed By: #### 0 2024 #### [facility] [address] [place] [address], [facility] PT Coag (PPP) [Time] 13.1 s Normal 12.3-14.8 [facility] Comment on above: Result Comment: ALL RESULTS MUST BE INTERPRETED WITH RESPECT TO BLOOD DRAWING ARTIFACT OR DILUTION ERROR OF ANTICOAGULANT AT THE TIME OF SAMPLING. Performed By: #### 0 2024 #### [facility] [address] [place] [address], [facility] VANCOMYCIN TROUGHon 11-12-19 VANCOMYCIN TROU 9.0 mcg/mL Normal 5.0-20.0 [facility] Comment on above: Performed By: #### 0 2024 #### [facility] [address] BASIC METABOLIC PANELon 10-24 Calcium [Mass/Vol] 9.1 mg/dL Normal 8.6-10.3 [facility] Comment on above: Order Comment: Yes: Add to Previous draw if able Performed By: #### 0 2024 #### [facility] [address] [facility] [place] [address], [facility] Chloride [Moles/Vol] 100 mmol/L Normal 98-107 [facility] Comment on above: Order Comment: Yes: Add to Previous draw if able Performed By: #### 0 2024 #### [facility] [address] [facility] [place] [address], [facility] CO2 [Moles/Vol] 26 mmol/L Normal 21-31 [facility] Comment on above: Order Comment: Yes: Add to Previous draw if able Performed By: #### 0 2024 #### [facility] [address] [place] [address], [facility] Creatinine [Mass/Vol] 1.22 mg/dL Normal 0.70-1.30 [facility] Comment on above: Order Comment: Yes: Add to Previous draw if able Performed By: #### 0 2024 #### [facility] [address] [place] [address], [place] GFR/1.73 sq M predicted among blacks MDRD (S/P/Bld) [Vol rate/Area] mL/min/{1.73_m2} Normal >60 [facility] Comment on above: Order Comment: Yes: Add to Previous draw if able Result Comment: Calc ulation may not be valid for patients over 70 years Performed By: #### 0 2024 #### [facility] [address] [place] [address], [place] GFR/1.73 sq M predicted among non-blacks MDRD (S/P/Bld) [Vol rate/Area] 59 ml/min/1.73sq m Abnormal >60 [facility] Comment on above: Order Comment: Yes: Add to Previous draw if able Result Comment: Calc ulation may not be valid for patients over 70 years Performed By: #### 0 2024 #### [facility] [address] [place] [address], [place] Glucose [Mass/Vol] 97 mg/dL Normal 70-100 [facility] Comment on above: Order Comment: Yes: Add to Previous draw if able Performed By: #### 2024 #### [facility] [address] [place] [address], [place] Potassium [Moles/Vol] 4.0 mmol/L Normal 3.5-5.1 [facility] Comment on above: Order Comment: Yes: Add to Previous draw if able Performed By: #### 0 2024 #### [facility] [address] [place] [address], [place] Sodium [Moles/Vol] 132 mmol/L Low 136-145 [facility] Comment on above: Order Comment: Yes: Add to Previous draw if able Performed By: #### 0 2024 #### [facility] [address] [place] [address], [place] Urea nitrogen [Mass/Vol] 17 mg/dL Normal 7-25 [facility] Comment on above: Order Comment: Yes: Add to Previous draw if able Performed By: #### 0 2024 #### [facility] [address] [place] [id number], [facility] CBC COMPLETE BLOOD COUNTon 0 - Erythrocyte distribution width (RBC) [Ratio] 14.2 % Normal 11.5-15.0 [facility] Comment on above: Order Comment: Yes: Add to Previous draw if able Performed By: #### 6 6 #### [facility] [address] [place] [address], [facility] Hematocrit (Bld) [Volume fraction] 32.5 % Low 39.0-50.0 [facility] Comment on above: Order Comment: Yes: Add to Previous draw if able Performed By: #### 6 6 #### [facility] [address] [place] [address], [facility] Hemoglobin (Bld) [Mass/Vol] 10.4 g/dL Low 13.0-17.0 [facility] Comment on above: Order Comment: Yes: Add to Previous draw if able Performed By: #### 6 2586 #### [facility] [address] [place] [id number], [facility] MCH (RBC) [Entitic mass] 31.7 pg Normal 27.0-33.0 [facility] Comment on above: Order Comment: Yes: Add to Previous draw if able Performed By: #### 6 6 #### [facility] [address] [place] [id number], [facility] MCHC (RBC) [Mass/Vol] 32.0 g/dL Normal 32.0-35.0 [facility] Comment on above: Order Comment: Yes: Add to Previous draw if able Performed By: #### 6 6 #### [facility] [address] [place] [address], [facility] MCV (RBC) [Entitic vol] 99.1 fL High 82.0-98.0 T he [facility] Comment on above: Order Comment: Yes: Add to Previous draw if able Performed By: #### 6 2586 #### [facility] [address] [place] [address], [facility] Nucleated RBC/100 WBC (Bld) [Ratio] 0 % Normal 0-0 [facility] Comment on above: Order Comment: Yes: Add to Previous draw if able Performed By: #### 6 2586 #### [facility] [address] [place] [address], [facility] PLAT CNT 231 10*3/uL Normal 150-400 [facility] Comment on above: Order Comment: Yes: Add to Previous draw if able Performed By: #### 6 2586 #### [facility] [address] [place] [address], [facility] RBC (Bld) [#/Vol] 3.28 10*6/uL Low 4.20-5.70 [facility] Comment on above: Order Comment: Yes: Add to Previous draw if able Performed By: #### 6 2586 #### [facility] [address] [address], [facility] WBC (Bld) [#/Vol] 8.34 10*3/uL Normal 4.00-10.60 [facility] Comment on above: Order Comment: Yes: Add to Previous draw if able Performed By: #### 6 2586 #### [facility] [address] [facility] Operative Reporton 0 Operative Report MR#: [id number] I [facility] Pt. Name: Huy Osei Room #: [id number] Discharge Date: Birthdate: 1950 OPERATIVE REPORT DATE OF SURGERY: 11/10/2019 SURGEON: Andrews Collier M.D. COMPRESS MACHINE OPERATOR: Jose Charles MD PREOPERATIVE DIAGNOSIS: Right knee [...] Charles MD Date Trans: 11/11/2019 09:49 A/noreen [id number] cc: Andrews Collier M.D. [address] [facility] [place] [address] Normal [facility] *ANAEROBIC CULTUREon *ANAEROBIC CULTURE Clinical Report: (D) Specimen/Source: TISSUE/INTRAOP SPEC Collected: 11/10/2019 08:50 Status: Final Last Updated: 11/15/2019 07:46 (1) #3 R. KNEE SYNOVIUM #2 CULT RES (Final) No Anaerobes Isolated 5 Days Normal [facility] Comment on above: Order Comment: #3 R. KNEE SYNOVIUM #2 Performed By: #### 8 6002 #### [facility] [address] [facility]. [address] *ANAEROBIC CULTURE Clinical Report: (D) Specimen/Source: TISSUE/INTRAOP SPEC Collected: 11/10/2019 08:44 Status: Final Last Updated: 11/15/2019 07:46 (1) #2 R. KNEE SYNOVIUM #1 CULT RES (Final) No Anaerobes Isolated 5 Days Normal [facility] Comment on above: Order Comment: #2 R. KNEE SYNOVIUM #1 Performed By: #### 3 0312 #### [facility] [address] *ANAEROBIC CULTURE Clinical Report: (D) Specimen/Source: SWAB/INTRAOP SPEC Collected: 11/10/2019 08:43 Status: Final Last Updated: 11/15/2019 07:46 (1) #1 R. KNEE SYNOVIAL FLUID ON SWAB CULT RES (Final) No Anaerobes Isolated 5 Days Normal [facility] Comment on above: Order Comment: #1 R. KNEE SYNOVIAL FLUID ON SWAB Performed By: #### 8 6002 #### [facility] [address] *BODY FLUID CULTUREon 2019 *BODY FLUID CULTURE Clinical Report: (D) Specimen/Source: FLUID/INTRAOP SPEC Collected: 11/10/2019 08:43 Status: Final Last Updated: 11/15/2019 10:58 (1) #1 R. KNEE SYNOVIAL FLUID ON SWAB GRAM (Final) Rare Polys No Bacteria Seen CULT RES (Final) No Growth Day 5 Normal [facility] Comment on above: Order Comment: #1 R. KNEE SYNOVIAL FLUID ON SWAB Performed By: #### 8 6002 #### [facility] [address] *TISSUE CULTUREon 11-10-2019 *TISSUE CULTURE Clinical Report: (D) Specimen/Source: TISSUE/INTRAOP SPEC Collected: 11/10/2019 08:50 Status: Final Last Updated: 11/15/2019 10:59 (1) #3 R. KNEE SYNOVIUM #2 GRAM (Final) Rare Polys No Bacteria Seen CULT RES (Final) No Growth Day 5 Normal [facility] Comment on above: Order Comment: #3 R. KNEE SYNOVIUM #2 Performed By: #### 8 6002 #### [facility] [address] *TISSUE CULTURE Clinical Report: (D) Specimen/Source: TISSUE/INTRAOP SPEC Collected: 11/10/2019 08:44 Status: Final Last Updated: 11/15/2019 10:58 (1) #2 R. KNEE SYNOVIUM #1 GRAM (Final) Rare Polys No Bacteria Seen CULT RES (Final) No Growth Day 5 Normal [facility] Comment on above: Order Comment: #2 R. KNEE SYNOVIUM #1 Performed By: #### 8 6002 #### [facility] [address] POC GLUCOSE LABon 11-10-2019 Glucose [Mass/Vol] 100 mg/dL Normal 70-100 [facility] Comment on above: Performed By: #### 8 6002 #### [facility] [address] [place] [address], [facility] TYPE AND SCREENon 11-10-2019 ABO INTERPRETATION A Normal [facility] Comment on above: Performed By: #### 6 2586 #### [facility] [address] [place] [address], [facility] RH INTERPRETATION Positive Normal [facility] Comment on above: Performed By: #### 6 2586 #### [facility] [address] [place] [address], [facility] *MRSA/MSSA DNA NASALon 11-09 *MRSA/MSSA DNA NASAL Clinical Report: (D ) Specimen: NASAL SWAB Collected: 11/09/2019 19:00 Status: Final Last Updated: 11/10/2019 13:15 MSSA DNA (Final) Negative MRSA DNA (Final) Methicillin Resistant Staphylococcus aureus DNA Detected Normal [facility] Comment on above: Performed By: #### 8 6002 #### [facility] [address] [place] [address], [facility] APTTon 11-09-2019 aPTT Coag (Bld) [Time] 29.3 s Normal 25.0-35.0 Th e [facility] Comment on above: Result Comment: ALL [...] PURPOSE. Performed By: #### 6 2586 #### [facility] [address] [place] [address], [facility] BASIC METABOLIC PANELon 10-24 Calcium [Mass/Vol] 9.0 mg/dL Normal 8.6-10.3 [facility] Comment on above: Performed By: #### 0 0071 #### [facility] [address] [place] [address], [facility] Chloride [Moles/Vol] 94 mmol/L Low 98-107 [facility] Comment on above: Performed By: #### 0 0071 #### [facility] [address] [place] [address], [facility] CO2 [Moles/Vol] 26 mmol/L Normal 21-31 [facility] Comment on above: Performed By: #### 0 0071 #### [facility] [address] [place] [address], [facility] Creatinine [Mass/Vol] 1.40 mg/dL High 0.70-1.30 [facility] Comment on above: Performed By: #### 0 0071 #### [facility] [address] [place] [address], [facility] GFR/1.73 sq M predicted among blacks MDRD (S/P/Bld) [Vol rate/Area] 60 ml/min/1.73sq m Abnormal >60 [facility] Comment on above: Result Comment: Calc ulation may not be valid for patients over 70 years Performed By: #### 0 0071 #### [facility] [address] [facility] [address], [facility] GFR/1.73 sq M predicted among non-blacks MDRD (S/P/Bld) [Vol rate/Area] 50 ml/min/1.73sq m Abnormal >60 [facility] Comment on above: Result Comment: Calc ulation may not be valid for patients over 70 years Performed By: #### 0 0071 #### [facility] [address] [place] [address], [place] Glucose [Mass/Vol] 106 mg/dL High 70-100 [facility] Comment on above: Performed By: #### 0 0071 #### [facility] [address] [place] [address], [place] Potassium [Moles/Vol] 3.9 mmol/L Normal 3.5-5.1 [facility] Comment on above: Performed By: #### 0 0071 #### [facility] [address] Sodium [Moles/Vol] 128 mmol/L Low 136-145 [facility] Comment on above: Performed By: #### 0 0071 #### [facility] [address] Urea nitrogen [Mass/Vol] 18 mg/dL Normal 7-25 [facility] Comment on above: Performed By: #### 0 1 #### [facility] [address] CBC W/DIFFon 11-09-2019 ABS BASOPHILS 0.0 10*3/uL Normal 0.0-0.2 [facility] Comment on above: Performed By: #### 6 2586 #### [facility] [address] ABS IMM GRANS 0.1 10*3/uL Normal 0.0-0.2 [facility] Comment on above: Performed By: #### 6 2586 #### [facility] [address] ABS NEUTROPHILS 4.9 10*3/uL Normal 1.6-7.6 [facility] Comment on above: Performed By: #### 6 2586 #### [facility] [address] Basophils/100 WBC (Bld) 0.3 % Normal 0.0-1.0 T he [facility] Comment on above: Performed By: #### 6 2586 #### [facility] [address] Eosinophils (Bld) [#/Vol] 0.1 10*3/uL Normal 0.0-0.5 [facility] Comment on above: Performed By: #### 6 2586 #### [facility] [address] [facility] [place] [address], [facility] Eosinophils/100 WBC (Bld) 0.8 % Normal 0.0-6.0 [facility] Comment on above: Performed By: #### 6 2586 #### [facility] [address] [place] [address], [facility] Erythrocyte distribution width (RBC) [Ratio] 14.0 % Normal 11.5-15.0 [facility] Comment on above: Performed By: #### 6 6 #### [facility] [address] [facility] [place] [address], [facility] Hematocrit (Bld) [Volume fraction] 35.1 % Low 39.0-50.0 [facility] Comment on above: Performed By: #### 6 2586 #### [facility] [address] [facility] [place] [address], [facility] Hemoglobin (Bld) [Mass/Vol] 11.6 g/dL Low 13.0-17.0 [facility] Comment on above: Performed By: #### 6 2586 #### [facility] [address] [place] [address], [facility] IMMATURE GRANS 0.9 % Normal 0.0-1.0 [facility] Comment on above: Performed By: #### 6 2586 #### [facility] [address] [facility] [place] [address], [facility] Lymphocytes (Bld) [#/Vol] 0.7 10*3/uL Low 1.2-4.0 [facility] Comment on above: Performed By: #### 6 2586 #### [facility] [address] [place] [address], [facility] Lymphocytes/100 WBC (Bld) 11.2 % Low 20.0-45.0 [facility] Comment on above: Performed By: #### 6 2586 #### [facility] [address] [place] [address], [facility] MCH (RBC) [Entitic mass] 31.4 pg Normal 27.0-33.0 [facility] Comment on above: Performed By: #### 6 2586 #### [facility] [address] [place] [id number], [facility] MCHC (RBC) [Mass/Vol] 33.0 g/dL Normal 32.0-35.0 [facility] Comment on above: Performed By: #### 6 2586 #### [facility] [address] [place] [address], [facility] MCV (RBC) [Entitic vol] 95.1 fL Normal 82.0-98.0 T esau [facility] Comment on above: Performed By: #### 6 2586 #### [facility] [address] [facility] [place] [address], [facility] Monocytes (Bld) [#/Vol] 0.8 10*3/uL Normal 0.1-1.0 [facility] Comment on above: Performed By: #### 6 2586 #### [facility] [address] [facility]. [address] MONOS 12.4 % High 5.0-12.0 [facility] Comment on above: Performed By: #### 6 2586 #### [facility] [address] [facility] [place] [address], [facility] Neutrophils/100 WBC (Bld) 74.4 % High 40.0-72.0 [facility] Comment on above: Performed By: #### 6 2586 #### [facility] [address] [facility] [place] [address], [facility] Nucleated RBC/100 WBC (Bld) [Ratio] 0 % Normal 0-0 [facility] Comment on above: Performed By: #### 6 2586 #### [facility] [address] PLAT CNT 233 10*3/uL Normal 150-400 [facility] Comment on above: Performed By: #### 6 2586 #### [place] [address], [facility] RBC (Bld) [#/Vol] 3.69 10*6/uL Low 4.20-5.70 [facility] Comment on above: Performed By: #### 6 2586 #### [facility] [address] [place] [address], [facility] WBC (Bld) [#/Vol] 6.54 10*3/uL Normal 4.00-10.60 [facility] Comment on above: Performed By: #### 6 2586 #### [address] KNEE RIGHT 3 Son 0 KNEE RIGHT 3 S [facility] Department of Radiology [address] [place] [address] [phone] Patient Name: HUY OSEI : 1950 Sex: M Age: Race: White Pt. Location: Patient Status: O Ordered Date: 11/09/2019 6:50:00 PM Completed Date: 11/09/2019 07:18 PM Requesting Provider: ANDREWS COLLIER Attending Provider: ANDREWS COLLIER Report Copy To: Signs & Symptoms: M00.9 Pyogenic arthritis, unspecified I10 History: [place] Comments: , Views (X-RAY, KNEE): Radiologic Protocol [...] reports Electronically signed: Galen Kruse. Transcribed by: [email or web address], User Resident: TONYA COPE Electronically Signed by: GALEN KRUSE @ 11/10/2019 09:54 AM I personally read this/these film(s) with this resident Normal [facility] Comment on above: Order Comment: , Glynn ws (X-RAY, KNEE): Radiologic Protocol , Weight Bearing?: Y , Views (X-RAY, KNEE): Radiologic Protocol , Weight Bearing?: Y , , , Ordering Provider - ANDREWS COLLIER MD , PROTHROMBIN TIMEon 0 INR Coag (PPP) [Relative time] 0.99 {INR} Normal 0.91-1.16 [facility] Comment on above: Result Comment: ACCC P [...] 1995;108:231S-246S. Performed By: #### 6 2586 #### [facility] [address] PT Coag (PPP) [Time] 13.1 s Normal 12.3-14.8 [facility] Comment on above: Result Comment: ALL RESULTS MUST BE INTERPRETED WITH RESPECT TO BLOOD DRAWING ARTIFACT OR DILUTION ERROR OF ANTICOAGULANT AT THE TIME OF SAMPLING. Performed By: #### [id number] #### [facility] [address] [facility] [place] [address], [facility] RBC'S 2 UNITSon 11-09-2019 CROSSMATCH INTERP 1 COMP Normal [facility] Comment on above: Performed By: #### [id number] #### [facility] [address] [place] [address], [place] CROSSMATCH INTERP 2 COMP Normal [facility] Comment on above: Performed By: #### 8 [id number] #### [facility] [address] [place] [address], [place] PRODUCT CODE 1 E0336 Normal [facility] Comment on above: Performed By: #### 8 [id number] #### [facility] [address] [place] [address], [place] PRODUCT CODE 2 E0336 Normal [facility] Comment on above: Performed By: #### [id number] #### [facility] [address] [place] [address], [place] PRODUCT STATUS 1 RE Normal [facility] Comment on above: Result Comment: Resu lt changed by IF on 11/14/2019 06:36. The previous value was XM. Performed By: #### [id number] #### [facility] [address] [place] [address], [place] PRODUCT STATUS 2 RE Normal [facility] Comment on above: Result Comment: Resu lt changed by IF on 11/14/2019 06:36. The previous value was XM. Performed By: #### [id number] #### [facility] [address] [place] [address], [place] UNIT ABO 1 A Normal [facility] Comment on above: Performed By: #### 8 [id number] #### [facility] [address] [place] [address], [place] UNIT ABO 2 A Normal [facility] Comment on above: Performed By: #### 8 [id number] #### [facility] [address] [place] [address], [place] UNIT ID 1 [id number] Normal [facility] Comment on above: Performed By: #### 8 [id number] #### [facility] [address] [place] [address], [facility] UNIT ID 2 [id number] Normal [facility] Comment on above: Performed By: #### 8 [id number] #### [facility] [address] [place] [address], [facility] UNIT RH 1 Positive Normal [facility] Comment on above: Performed By: #### 8 [id number] #### [facility] [address] [place] [address], [place] UNIT RH 2 Positive Normal [facility] Comment on above: Performed By: #### [id number] #### [facility] [address] [place] [address], [facility] Vital Signs Date Time Vital Sign Value Performing Clinician Facility 09-04-2024 09:32-0500 Body height 177.8 cm [facility] 09-04-2024 09:32-0500 Body mass index (BMI) [Ratio] 30.8 kg/m2 [facility] 09-04-2024 09:32-0500 Body temperature 98.2 [degF] [facility] 09-04-2024 09:32-0500 Body weight 97.52 kg [facility] 09-04-2024 09:32-0500 Diastolic blood pressure 65 mm[Hg] [facility] 09-04-2024 09:32-0500 Heart rate 73 /min [facility] 09-04-2024 09:32-0500 Respiratory rate 18 /min [facility] 09-04-2024 09:32-0500 SaO2% (BldA) [Mass fraction] 97 % [facility] 09-04-2024 09:32-0500 Systolic blood pressure 129 mm[Hg] [facility] 08-15-2024 11:08-0400 Body height 177.8 cm Pool Garcia MD Work Phone: [facility] 08-15-2024 11:08-0400 Body mass index (BMI) [Ratio] 30.28 kg/m2 Pool Garcia MD Work Phone: [facility] 08-15-2024 11:08-0400 Body temperature 97.5 [degF] Pool Garcia MD Work Phone: [facility] 08-15-2024 11:08-0400 Body weight 95.71 kg Pool Garcia MD Work Phone: [facility] 08-15-2024 11:08-0400 Diastolic blood pressure 54 mm[Hg] Pool Garcia MD Work Phone: [facility] 08-15-2024 11:08-0400 Heart rate 70 /min Pool Garcia MD Work Phone: [facility] 08-15-2024 11:08-0400 Respiratory rate 18 /min Pool Garcia MD Work Phone: [facility] 08-15-2024 11:08-0400 SaO2% (BldA) [Mass fraction] 96 % Pool Garcia MD Work Phone: [facility] 08-15-2024 11:08-0400 Systolic blood pressure 110 mm[Hg] Pool Garcia MD Work Phone: [facility] 05-24-2023 10:25-0400 Body height 176.53 cm Katiana Kemp Other [facility] Other 05-24-2023 10:25-0400 Body mass index (BMI) [Ratio] 31.2 kg/m2 Katiana Kemp Other [facility] Other 05-24-2023 10:25-0400 Body weight 97.25 kg Katiana Kemp Other [facility] Other 05-24-2023 10:25-0400 Diastolic blood pressure 65 mm[Hg] Katiana Kemp Other [facility] Other 05-24-2023 10:25-0400 Respiratory rate 18 /min Katiana Kemp Other [facility] Other 05-24-2023 10:25-0400 SaO2% (BldA) [Mass fraction] 100 % Katiana Kemp Other [facility] Other 05-24-2023 10:25-0400 Systolic blood pressure 142 mm[Hg] Katiana Kemp Other [facility] Other Encounters Encounter Date Encounter Type Care Provider Facility Start: 09-04-2024 End: 09-04-2024 ambulatory [facility] Work Phone: Start: 09-04-2024 End: 09-04-2024 Patient encounter procedure [facility] Physician [facility] Work Phone: Start: 08-15-2024 [...] Not Available Start: 07-13-2024 End: 07-13-[facility] Start: 03-12-2024 End: 03-13-2024 Emergency department patient visit JOANNE GALLEGOS [facility] Start: 12-26-2023 End: 12-26-2023 ambulatory [facility] Start: 05-24-2023 End: 05-24-2023 ambulatory Katiana Kemp Other [facility] Other Start: 05-24-2023 Office outpatient ne w 20 minutes Katiana Kemp [facility] Start: 2023 [...] preprocedural cardiovascular examination LEIGHA PEDRAZA . [facility] Start: 03-03-2022 Encounter for preprocedural laboratory examination LEIGHA PEDRAZA . [facility] Start: 03-01-2022 End: 03-02-2022 ambulatory LEIGHA PEDRAZA . Facility: Start: 03-01-2022 End: 03-02-2022 Encounter for preprocedural cardiovascular examination LEIGHA PEDRAZA . Facility: Start: 02-24-2022 End: 02-25-[address] BRADY MORRIS Facility: Start: 08-21-2020 End: 08-22-2020 Patient encounter procedure PROVIDER UNKNOWN Facility:[facility] Start: 05-05-2020 End: 05-06-2020 Patient encounter procedure PROVIDER UNKNOWN Facility:[facility] Start: 04-16-2020 End: 04-17-2020 Patient encounter procedure PROVIDER UNKNOWN Facility:[facility] Start: 11-26-2019 End: 11-27-2019 Patient encounter procedure [place] Facility:[facility] Start: 11-09-2019 End: 11-13-2019 Evaluation and management of inpatient [place] Facility:[facility] Procedures Date Procedure Procedure Detail Performing Clinician Start: 08-15-2024 ALL CBC WITH AUTO DIFF Pool Garcia MD Work Phone: Start: 07-27-[address] SCOTT CHAUHAN . Comment on above: Performed By: #### T SH, BMP #### [facility] [address] [address] [address] Marilin Rothman Start: 04-17-2020 Antibody screen Comment on above: Performed By: #### 0 5 #### [facility] [address] [place], [place] [id number] [place] [address] Start: 11-26-2019 Anes integ extremiti es ant trunk & perineum nos RASHEEDA YORK Start: 11-26-2019 LATE CLOSURE OF WOUND N ABIL EBHARMONY Start: 11-10-2019 EXCISION OF RIGHT KN EE JOINT, OPEN APPROACH ANDREWS SWETA Start: 11-10-2019 Antibody screen Comment on above: Performed By: #### 6 [id number] #### [facility] [place] [address], [facility] Plan of Treatment Date Care Activity Detail Author Start: 02-13-2025 End: 02-13-2025 Patient encounter procedure 02/13/2025 9:30 AM EDT Office Visit [facility] [address] [place] [phone] Pool Garcia MD [address] [place] [address] [facility] Start: 08-15-2024 End: 08-15-2025 Basic metabolic 1998 panel - Serum or Plasma Basic metabolic panel Lab Routine Essential hypertension, benign (CMS/HCC) Expected: 08/15/2024 (Approximate), Expires: 08/15/2025 [facility] Work Phone: Comment on above: Expected: 08/15/2024 (Approximate), Expires: 08/15/2025 Start: 08-15-2024 End: 08-15-2025 CBC W Auto Differential panel - Blood CBC and differential Lab Routine Encounter for long-term (current) use of medications Expected: 08/15/2024 (Approximate), Expires: 08/15/2025 [facility] Comment on above: Expected: 08/15/2024 (Approximate), Expires: 08/15/2025 Start: 08-15-2024 End: 08-15-2025 Hepatic function 2000 panel - Serum or Plasma Hepatic function panel Lab Routine Encounter for long-term (current) use of medications Expected: 08/15/2024 (Approximate), Expires: 08/15/2025 [facility] Comment on above: Expected: 08/15/2024 (Approximate), Expires: 08/15/2025 Start: 08-15-2024 End: 08-15-2025 Lipid 1996 panel - Serum or Plasma Lipid panel Lab Routine Dyslipidemia (CMS/HCC) Expected: 08/15/2024 (Approximate), Expires: 08/15/2025 [facility] Comment on above: Expected: 08/15/2024 (Approximate), Expires: 08/15/2025 Start: 08-15-2024 End: 08-15-2025 Prostate specific Ag [Mass/volume] in Serum or Plasma PSA Lab Routine Screening PSA (prostate specific antigen) Expected: 08/15/2024 (Approximate), Expires: 08/15/2025 [facility] Comment on above: Expected: 08/15/2024 (Approximate), Expires: 08/15/2025 Start: 08-15-2024 End: 08-15-2025 Thyrotropin [Units/volume] in Serum or Plasma TSH Lab Routine Class 1 obesity due to excess calories with serious comorbidity and body mass index (BMI) of 30.0 to 30.9 in adult Expected: 08/15/2024 (Approximate), Expires: 08/15/2025 [facility] Comment on above: Expected: 08/15/2024 (Approximate), Expires: 08/15/2025 Start: 08-15-2024 End: 08-15-2024 Patient encounter procedure 08/15/2024 11:30 AM EDT Office Visit [facility] [address] [place] [phone] Pool Garcia MD [address] [place] [id number] Arrived [facility] Comment on above: Arrived Start: 06-24-2024 Influenza vaccination Influenza Vacc ine (#1) [facility] Start: 05-05-2021 Pneumococcal Vaccine : 65+ Years (2 of 2 - PCV) Pneumococcal Vaccine: 65+ Years (2 of 2 - PCV) [facility] Start: 1950 Medicare Annual Wellness (AWV) Medicare Annual Wellness (AWV) [facility] Immunizations Immunization Date Immunization Notes Care Provider Fa cility 08-15-2024 influenza, seasonal, injectable, preservative free Pool Garcia MD Work Phone: [facility] 09-15-2021 influenza virus vacc ine, unspecified formulation Pool Garcia MD Work Phone: [facility] Payers Date Payer Category Payer Medicare (Managed Care) [facility] [id number] 2009 Unknown [id number] 1959 Medicare [id number] 1959 Medicare [id number] 1948 Unknown [id number] 2.16.840.1.665469.3.579.2. 647 1948 Unknown [id number] 2.16.840.1.576255.3.579.2. 647 1948 Unknown [id number] 2.16.840.1.600410.3.579.2. 647 1948 Unknown [id number] 2.16.840.1.781241.3.579.2. 647 1948 Unknown [id number] 2.16.840.1.442789.3.579.2. 647 1948 Unknown [id number] 2.16.840.1.589886.3.579.2. 593 1948 Unknown [id number] 2.16.840.1.891808.3.579.2. 593 1948 Unknown [id number] 2.16.840.1.152070.3.579.2. 593 1948 Unknown [id number] 2.16.840.1.160331.3.579.2. 593 1948 Unknown [id number] 2.16.840.1.103095.3.579.2. 593 1948 Unknown [id number] 2.16.840.1.556198.3.579.2. 593 1948 Unknown [id number] 2.16.840.1.232468.3.579.2. 593 1948 Unknown [id number] 2.16.840.1.492877.3.579.2. 593 1948 Unknown [id number] 2.16.840.1.670619.3.579.2. 593 1948 Unknown [id number] 2.16.840.1.354567.3.579.2. 593 1948 Unknown [id number] 2.16.840.1.340618.3.579.2. 593 1948 Unknown [id number] 2.16.840.1.736582.3.579.2. 175 1948 Unknown [id number] 2.16.840.1.419933.3.579.2. 1259 Medicare [id number] Social History Date Type Detail Facility Start: 02-08-2024 End: 08-15-2024 Sex Assigned At [facility] Tobacco smoking stat [facility] Tobacco smoking consumption unknown [facility] Start: 02-08-2024 End: 08-15-2024 History of Social function [facility] Do you belong to any clubs or organizations such as islam groups, unions, fraternal or athletic groups, or [...] [facility] Start: 09-04-2024 Sex Male (finding) [facility] Start: 1950 Sex Assigned At Male [facility] Clinical Notes 10-26-2022 to 08-15-2024 Pool Garcia [...] free IM (Completed) documented in this encounter [facility] 07-13-2024 Note Reviewed ABIs with p atient and they are normal no concerns for significant arterial stenosis Continue Lipitor, and regular exercise [facility] 07-13-2024 Note Lipid abnormalities are unchanged. Follow-up with PCP for annual blood testing Continue atorvastatin 80 mg daily and reviewed his lipid profile is well-controlled and liver function was normal Pharmacotherapy as ordered. Lipids will be reassessed in 1 year. [facility] 07-13-2024 Note Hypertension is unch anged. Continue Norvasc, losartan and Toprol Continue current treatment regimen. Continue current medications. Blood pressure will be reassessed at the next regular appointment. [facility] 07-13-2024 Note Coronary artery dise ase is unchanged. Remained stable no concerning symptoms Continue Plavix, Toprol and Lipitor Currently cholesterol levels are well-controlled and liver functions normal Continue current treatment regimen. Regular aerobic exercise. Continue current medications. Cardiac status will be reassessed in 1 year. [facility] 07-13-2024 Note UTP CARDIOLOGY PROGR ESS [...] DAY IN THE MORNING 90 tablet 3 uirakpcafmm-jczauvjsh-sbrflqfk 100-62.5-25 mcg blister with device Inhale 1 [...] 122. Imaging a (more content not included)... [facility] 07-13-2024 Note Pt here for six cecelia h follow up. Pt denies chest pain, sob, palpatations. Review of Systems HENT: Positive for tinnitus. Cardiovascular: Positive for dyspnea on exertion. Musculoskeletal: Positive for arthritis, back pain, joint pain and myalgias. All other systems reviewed and are negative. [facility] 12-26-2023 Note PR Cardiology - [facility] Subjective Huy Osei is a [...] THE MORNING, Disp: 90 tablet, Rfl: 3 divgrzigqaw-htczlzzwb-vtnfgryb 100-62.5-25 mcg blister with device, Inhale 1 [...] Rate 05/05/2020 79 Atrial Rate 05/05/2020 79 FL Interval 05/05/2020 148 QRS DURATION 05/05/2020 84 QT Interval 05/05/2020 386 QTC CALCULATION(BEZET) 05/05/2020 442 P Alton 05/05/2020 51 R-Alton 05/05/2020 32 T Wave Alton 05/05/2020 42 Diagnosis 05/05/2020 Value:Normal sinus rhythm (more content not included)... [facility] 05-24-2023 Evaluation note Encounter Date Diagnosis [...] fever. Patient verbalized understanding of treatment plan. [facility] Other 04-06-2023 NoteCONSULTATION CONSULTATION DATE: 2023 TO: [...] our patients to inform us about any sjgl-qqo-bqsyilk medications or herbal remedies/nutritional supplements/alternative remedies. 2. [...] treatment options with their primary care provider.[id number] Note CONSULTATION CONSULTATION DATE: 12/07/2022 CHIEF COMPLAINT: [...] Education was done. CC: Pool Garcia M.D.[id number] NoteCONSULTATION CONSULTATION DATE: 11/02/2022 PREOPERATIVE DIAGNOSIS: Left [...] will be followed up in the office.[id number] NoteCONSULTATION CONSULTATION DATE: 10/26/2022 CHIEF COMPLAINT: Low [...] by Dr. Garcia. CC: Pool Garcia M.D.[facility]* Diagnosis Encounter for Medicare annual wellness [...] this [facility] noteNo assessment information availableTri[facility] Work Phone: History general Narrative - Reported* Type Description Date Medical History HTN Medical History hyperlipidemia Medical History PAD Medical History SOB Surgical History right knee arthroscopy Surgical History cataract removal [facility] Other Summary Purpose Family History No Family History Records Found Relationship Condition Age at Onset Recorded Date/T irving father Unknown mother Unknown Advance Directives No Advanced Directives Records Found Advance Directive Response Recorded Date/ Time Advance Directives No September 7:42am Hospital Course Note MR#: [id number] I [facility] Pt. Name: Huy Osei Admitted: 11/09/2019 Discharged: [...] cocci. The patient was then transferred to [facility] for higher level of care. The [...] DATE CREATED AUTHOR 09/21/2020 [facility] DATE CREATED AUTHOR AUTHOR'S ORGANIZ ATION 02/06/2023 [facility] DATE CREATED AUTHOR AUTHOR'S ORGANIZ ATION 03/17/2024 [facility] DATE CREATED AUTHOR AUTHOR'S ORGANIZ ATION 08/16/2024 [facility] DATE CREATED AUTHOR AUTHOR'S ORGANIZ ATION 09/11/2024 [facility] REASON FOR VISIT (unrecogniz ed section and content) Reason Comments Medicare Annual Wellness Visit [facility] Wellness Care Teams (unrecognized sec tion and content) Refrigeration Insulator Relationship Specialty Start Date End Date Pool Garcia MD [address] [place] [phone] PCP - [facility] 11/24/23 02/21/68 Pool Garcia MD [address] [place] [phone] PCP - General Family Medicine 08/15/24 Refrigeration Insulator Relationship Specialty Start Date End Date Pool Garcia MD [address] [place] [phone] PCP - [facility] 11/24/23 02/21/68 Pool Garcia MD [address] [place] [phone] PCP - General Family Medicine 08/15/24 Refrigeration Insulator Relationship Specialty Start Date End Date Pool Garcia MD [address] [place] [address] PCP - [facility] 11/24/23 02/21/68 Pool Garcia MD [address] [place] [address] PCP - General Family Medicine 08/15/24 Team [...] BE BASED ON THE PRIMARY CLINICAL RECORDS. [facility] [employer]. provides no warranty or guarantee of the accuracy or completeness of information in this document.
== END 2024-12-31 14:19 | disposition home or self-care (01) ==
LOC: EC 14:18
PROVIDERS: PCP Family Medicine; Visit Provider Student in an Organized Health Care Education/Training Program
DX: S82.831D Other fracture of upper and lower end of right fibula, subsequent encounter for closed fracture with routine healing (principal)
CPT/HCPCS: 73610

== ENCOUNTER 2025-01-14 14:00 | Outpatient (OUT) | payer MEDICARE, SELFPAY ==
--- NOTE | 2025-01-14 14:01 | XR_ITS ---
[place] [id number] Patient Name: HUY MARTINEZ MRN: [id number] date: 1950 Sex: M Assigned Patient Location: Current Patient Location: Accession/Order Number: [id number] Exam Date: 01/14/2025 14:52 Report Date: 01/14/2025 14:53 At the request of: HEATH FORTE MD Procedure: XR ankle RT min 3V RIGHT ANKLE - 3 views CLINICAL HISTORY: Closed fracture of distal end of right fibula s82.831d COMPARISON: Right ankle 12/22/2024 FINDINGS: Diffuse soft tissue swelling. Distal fibular fracture grossly unchanged in alignment with interval sclerosis and periosteal reaction suggestive of healing response. Plantar spurring. XR/XR ankle RT min 3V IMPRESSION: HEALING DISTAL FIBULAR FRACTURE. Impression dictated by: Ezra Lacy Jr., D.O.01/14/2025 2:53 PM Dictation Location: [facility] Electronically authenticated by: [id number] Y Date: 01/14/2025 14:53
== END 2025-01-14 14:01 | disposition home or self-care (01) ==
LOC: EC 14:01
PROVIDERS: PCP Family Medicine; Visit Provider Student in an Organized Health Care Education/Training Program
DX: S82.831D Other fracture of upper and lower end of right fibula, subsequent encounter for closed fracture with routine healing (principal)
CPT/HCPCS: 73610

== ENCOUNTER 2025-02-13 10:53 | Outpatient (OUT) | payer MEDICARE, SELFPAY ==
[2025-02-13 11:27] LABS: Alanine Aminotransferase 21 U/L (16-63); Albumin Level 3.6 g/dL (3.4-5.0); Alkaline Phosphatase 87 U/L (46-116); Anion Gap 11.7; Aspartate Amino Transferase 17 U/L (15-37); BUN Creatinine Ratio 13.7; Bilirubin Direct 0.2 mg/dL (0.0-0.2); Bilirubin Total 0.6 mg/dL (0.2-1.0); Calcium 10.1 mg/dL (8.5-10.1); Chloride 99 mmol/L (98-107); Estimated GFR (African America 57 (>=60 mL/min/1.73m^2); Estimated GFR (Non-African Ame 47 (>=60 mL/min/1.73m^2); Globulin 3.5 g/dL; Glucose 92 mg/dL (74-106); Potassium 3.7 mmol/L (3.5-5.1); Sodium 138 mmol/L (136-145); Total Protein 7.1 g/dL (6.4-8.2)
[2025-02-13 11:28] LABS: Basophils Absolute Auto 0.1 10^3/uL (0.0-0.1); Basophils Percent Auto 0.6 % (0.2-2.0); Eosinophils Absolute Auto 0.3 10^3/uL (0.0-0.7); Eosinophils Percent Auto 4.2 % (0.9-7.0); Hematocrit 34.9 % (42.0-54.0); Hemoglobin 11.7 g/dL (14.0-18.0); Immature Granulocytes Abs Auto 0.08 10^3/uL (0.00-0.03); Lymphocytes Absolute Auto 1.2 10^3/uL (1.2-3.8); Lymphocytes Percent Auto 15.9 % (20.5-60.0); Mean Corpuscular HGB Conc 33.5 g/dL (29.9-35.2); Mean Corpuscular Hemoglobin 32.3 pg (25.9-34.0); Mean Corpuscular Volume 96.4 fL (80.0-94.0); Mean Platelet Volume 8.7 fL (9.5-13.5); Monocytes Percent Auto 12.3 % (1.7-12.0); Neutrophils Absolute Auto 5.1 10^3/uL (1.4-6.5); Platelet Count 324 10^3/uL (150-450); Red Blood Count 3.62 10^6/uL (4.70-6.10); Red Cell Distribution Width 13.3 % (11.0-15.0); White Blood Count 7.8 10^3/uL (4.0-11.0)
== END 2025-02-13 10:54 | disposition home or self-care (01) ==
LOC: LAB 10:56
PROVIDERS: PCP Family Medicine; Visit Provider Family Medicine
DX: Z79.899 Other long term (current) drug therapy (principal); I10 Essential (primary) hypertension
CPT/HCPCS: 36415; 80048; 80076; 85025

== ENCOUNTER 2025-02-18 13:49 | Outpatient (OUT) | payer MEDICARE, SELFPAY ==
--- NOTE | 2025-02-18 | XR_ITS ---
[place] [id number] Patient Name: HUY MARTINEZ MRN: [id number] date: 1950 Sex: M Assigned Patient Location: Current Patient Location: Accession/Order Number: [id number] Exam Date: 02/18/2025 16:00 Report Date: 02/18/2025 16:01 At the request of: HEATH FORTE MD Procedure: XR ankle RT min 3V RIGHT ANKLE - 3 views CLINICAL HISTORY: S82.831D Closed fracture of distal end of right fibula COMPARISON: Ankle series 01/14/2025 FINDINGS: Diffuse soft tissue swelling. Dista Fibular fracture grossly unchanged alignment with callus formation suggestive of healing response. XR/XR ankle RT min 3V IMPRESSION: HEALING DISTAL FIBULAR FRACTURE. Impression dictated by: Ezra Lacy Jr., D.O. 02/18/2025 4:01 PM Dictation Location: [place] [address] Electronically authenticated by: [id number] Y Date: 02/18/2025 16:01
== END 2025-02-18 13:50 | disposition home or self-care (01) ==
LOC: EC 13:49
PROVIDERS: PCP Family Medicine; Visit Provider Student in an Organized Health Care Education/Training Program
DX: S82.831D Other fracture of upper and lower end of right fibula, subsequent encounter for closed fracture with routine healing (principal)
CPT/HCPCS: 73610

== ENCOUNTER 2025-02-21 08:12 | Outpatient (OUT) | payer MEDICARE, SELFPAY ==
--- NOTE | 2025-02-21 08:54 | PM.CN ---
Consult Note: HPI Data of Consult Patient: new to practice Requesting Physician: Ena Rhoades NP Primary Care Provider: Pool Peace MD Consult Narrative Reason for consult: back and BLE pain Narrative: Mike sOei a pleasant 75 year old male returns for evaluation of low back and BLE pain. Pt noticing moderate to severe pain in low back and RLE with pain in left foot as well, increasing over the last 3 months. Pt has a hx of lumbar radiculopathy and lumbar DDD, previously underwent lumbar MRI in 2022 with >50% improvement greater than 12 months. pt has been engaged in provider guided HEP> 6 weeks without benefit, has failed tylenol, motrin, heat, and ice. Pain today 8/10 aching burning increasing to 10/10 with standing, walking, lifting, twisting, pushing, pulling. Pain improves with sitting and lying. cc:: CC: Ena Rhoades NP Review of Systems ROS Status of ROS 10 or more systems reviewed and unremarkable except as noted in history and below PFSH PFSH Social History Little interest or pleasure in doing things: not at all Feeling down, depressed, or hopeless: not at all Meds Home Medications and Allergies Home Medications ?Medication ?Instructions ?Recorded ?Confirmed ?Type ascorbic acid (vitamin C) 500 mg mg PO 06/17/23 History capsule atorvastatin 80 mg tablet 80 mg PO DAILY 06/17/23 06/17/23 History cholecalciferol (vitamin D3) 125 5,000 unit PO DAILY 06/17/23 06/17/23 History mcg (5,000 unit) capsule clopidogrel 75 mg tablet 75 mg PO DAILY 06/17/23 06/17/23 History coenzyme Q10 75 mg capsule (Ultra 75 mg PO DAILY 06/17/23 06/17/23 History CoQ10) dicyclomine 20 mg tablet 20 mg PO TID 5 days #15 tabs 06/17/23 Rx fluticasone fur. 200 mcg-umeclid 1 inh inhalation DAILY 06/17/23 06/17/23 History 62.5 mcg-vilant 25 mcg inhalat.powder (Trelegy Ellipta) glucosamine SFm-C2-Vpzxqwlda 1 tab PO DAILY 06/17/23 06/17/23 History keerthi 1,500 mg-400 unit-100 mg tablet (Osteo Bi-Flex (5-Loxin)) hydrochlorothiazide 25 mg tablet 25 mg PO DAILY 06/17/23 06/17/23 History losartan 100 mg tablet 100 mg PO DAILY 06/17/23 06/17/23 History metoprolol succinate 25 mg 25 mg PO DAILY 06/17/23 06/17/23 History tablet,extended release 24 hr multivitamin 1 tab PO DAILY 06/17/23 06/17/23 History omega 3-smz-prr-fish oil 60 mg-90 1 cap PO DAILY 06/17/23 06/17/23 History mg-500 mg capsule (Fish Oil) polyethylene glycol 3350 17 gram 17 g PO DAILY 5 days #14 ea 06/17/23 Rx oral powder packet (Miralax) azithromycin 250 mg tablet See Rx Instructions PO .COMPLEX #6 10/27/24 Rx tabs methylprednisolone 4 mg tablets in 4 mg PO DAILY #21 ea 10/27/24 Rx a dose pack (Medrol (Zan)) hydrocodone 5 mg-acetaminophen 325 1 tab PO Q8H PRN pain 3 days #8 12/24/24 Rx mg tablet tabs Allergies Allergy/AdvReac Type Severity Reaction Status Date / Time Penicillins Allergy Severe Swelling Verified 10/27/24 14:15 of Lip/Tongue/Throat morphine AdvReac Severe Vomiting Verified 10/27/24 14:15 Exam Constitutional Documenting provider has reviewed patient's vital signs: yes Common normals: no apparent distress, oriented x3, healthy appearing, alert and well nourished General appearance: cooperative [facility] Common normals: normocephalic, hearing grossly normal bilaterally and moist oral mucous membranes Head and scalp: normocephalic Eye Common normals: PERRL Pupil: PERRL Neck & C-Spine Common normals: full ROM General: normal visual inspection Chest Common normals: inspection of chest normal Respiratory Common normals: normal respiratory effort, no retractions and no use of accessory muscles Back & Pelvis Lumbar spine/lower back: pain with ROM and straight leg raise negative bilaterally; ROM not limited and no lumbar spinal tenderness Sacroiliac joints: SI joint(s) abnormal Other: decreased sensation to right L4,5,S1 and left L5,S1 strength 4/5 in BLE bilateral sij positive pastor(patricks), gaenslens, thigh thrust, compression test Neuro Common normals: oriented x3 Sensorium/orientation: alert Gait (neuro): antalgic Motor exam: strength abnormal Psych Common normals: mental status grossly normal, thought process normal, cooperative, affect normal, speech normal and activity/motor behavior normal Speech: normal speech Thought process: normal thought process Results Additional Findings Additional findings: If on a controlled substance or opioids, I have checked an [place]AR[place] report on this patient and there are no aberrancies noted in the prescribing history.??If on a controlled substance or opioid a drug screen was completed and reviewed within the last year, and if there has not been a drug screen completed we ordered one today to monitor higher risk, state monitored pain medication use. As part of providing excellent, safe, comprehensive care, the following was completed at our patient's visit: 1. A medication reconciliation and review to ensure accurate knowledge of current/active medications, including asking our patients to inform us about any lkcs-gri-gwfxvvc medications or herbal remedies/nutritional supplements/alternative remedies. 2. A review to specifically ensure our patients have had annual screening for screening for depression, screening for tobacco use, and screening for unhealthy alcohol use. For concerning screenings had a discussion with the patient, provided patient education, and recommended follow-up with primary care provider when appropriate. If patient noted with a risk of falling, they received education on strength, gait, and balance training to prevent future risk of falling. Portions of this note may have been carried over from the previous visit and updated as appropriate. Please note this office utilizes paper charting in addition to the electronic medical record. A list of current medications, vitals, and PMH is available there as the clinical staff outside of myself do not have access to [employer] charting during the clinic day operations. As part of providing quality comprehensive care the current medications, vitals, and PMH were reviewed in the paper chart. Assessment and Plan Assessment and Plan (1) Lumbar stenosis with neurogenic claudication: Assessment and Plan: KAYLIN 40% with moderate to severe pain impacting ADLs, standing, walking, lifting, social life, and travel (2) Lumbar spondylosis: (3) Myalgia, other site: Plan 75 year old male with chronic moderate to severe low back and BLE pain unresponsive to > 6 weeks of PT/Provider guided HEP, heat, ice, tylenol, and NSAIDs. update lumbar xray with flexion to assess stability, update lumbar MRI without contrast to assess lumbar stenosis with NC in preparation of interventional therapy vs NS consultation. start baclofen 10mg TID PRN pain/spasms, risks vs benefits reviewed. f/u to review imaging
== END 2025-02-21 08:13 | disposition home or self-care (01) ==
LOC: PM 08:12
PROVIDERS: PCP Family Medicine; Visit Provider Nurse Practitioner
DX: M48.062 Spinal stenosis, lumbar region with neurogenic claudication (principal); M47.816 Spondylosis without myelopathy or radiculopathy, lumbar region; M79.10 Myalgia, unspecified site
CPT/HCPCS: 72114; G0463

== ENCOUNTER 2025-02-21 09:13 | Outpatient (OUT) | payer MEDICARE, SELFPAY ==
--- NOTE | 2025-02-21 09:50 | XR_ITS ---
[place] [address] Patient Name: HUY MARTINEZ MRN: [id number] date: 1950 Sex: M Assigned Patient Location: [facility] Current Patient Location: [facility] Accession/Order Number: [id number] Exam Date: 02/21/2025 11:57 Report Date: 02/21/2025 11:59 At the request of: MARICARMEN SHAW NP Procedure: XR lumbar spine 6V w bending LUMBAR SPINE - 7 views CLINICAL HISTORY: Lumbar Stenosis COMPARISON: Lumbar spine 10/26/2022 FINDINGS: Vertebral body heights appear maintained. Scattered endplate and facet joint degenerative changes with mild disc space narrowing at L5-S1. No pathological motion on flexion or extension views. SI joints demonstrate degenerative change. XR/XR lumbar spine 6V w bending IMPRESSION: THERE ARE CHANGES INVOLVING THE LUMBAR SPINE WITH MILD DISC SPACE NARROWING L5-S1. Impression dictated by: Ezra Lacy Jr., DOtonielOOtoniel 02/21/2025 11:59 AM Dictation Location: [place] [address] Electronically authenticated by: [id number] Y Date: 02/21/2025 11:59
== END 2025-02-21 09:14 | disposition home or self-care (01) ==
LOC: RAD 09:14
PROVIDERS: PCP Family Medicine; Visit Provider Nurse Practitioner
DX: M48.061 Spinal stenosis, lumbar region without neurogenic claudication (principal)
CPT/HCPCS: 72114

== ENCOUNTER 2025-03-08 13:50 | Outpatient (OUT) | payer MEDICARE, SELFPAY ==
--- NOTE | 2025-03-08 13:53 | MR_ITS ---
[address] [address] Patient Name: HUY MARTINEZ MRN: [id number] date: 1950 Sex: M Assigned Patient Location: MRI Current Patient Location: MRI Accession/Order Number: [id number] Exam Date: 03/08/2025 14:55 Report Date: 03/08/2025 15:00 At the request of: MARICARMEN SHAW NP Procedure: MR lumbar spine wo con MR lumbar spine wo con 03/08/2025 2:34 PM SIGNS AND SYMPTOMS: Low back pain radiating into lower extremities PROTOCOL: Multiplanar multisequence MR images of the lumbar spine without IV contrast COMPARISON: 02/21/2025 FINDINGS: There is 2 mm of anterolisthesis of L4 upon L5 secondary to facet hypertrophy.. There is preservation of vertebral body heights. There is disc desiccation with mild disc height loss at L2-3, L3-L4, L4-5, and L5-S1. Mild Schmorl's node formation is noted in the endplates at T12, L1, and L2. The marrow signal is within normal limits. The conus terminates at the L1-L2 intervertebral disc level. No epidural or paraspinous fluid collection is appreciated. Simple cysts are noted in the renal cortices. Degenerative changes are noted in the sacroiliac joints. At T12-L1: There is a normal disc, central canal, and neural foramen. At L1-L2: There is a broad-based disc bulge with facet hypertrophy. There is mild to moderate spinal canal stenosis. There is mild bilateral neural foraminal stenosis. At L2-L3: There is a circumferential disc bulge with facet hypertrophy and ligamentum flavum thickening. There is a focal central disc extrusion with mild caudal migration. There is moderate to severe spinal canal narrowing. There is mild right and moderate left neural foraminal narrowing. At L3-L4: There is a broad-based disc bulge with endplate osteophyte formation right greater than left. There is facet hypertrophy. There is moderate spinal canal stenosis with mild left and moderate to severe right neural foraminal narrowing. Is mild mass effect on the exiting right L3 nerve roots. At L4-L5: There is 2 mm of anterolisthesis of L4 upon L5. There is a circumferential disc bulge with facet hypertrophy and ligamentum flavum thickening. There is severe spinal canal stenosis with moderate right neural foraminal narrowing. At L5-S1: There is a broad-based disc bulge with facet hypertrophy and endplate osteophyte formation. There is mild left and moderate right neural foraminal narrowing with mild spinal canal narrowing. MR/MR lumbar spine wo con IMPRESSION: At L2-L3: There is a circumferential disc bulge with facet hypertrophy and ligamentum flavum thickening. There is a focal central disc extrusion with mild caudal migration. There is moderate to severe spinal canal narrowing. There is mild right and moderate left neural foraminal narrowing. At L3-L4: There is a broad-based disc bulge with endplate osteophyte formation right greater than left. There is facet hypertrophy. There is moderate spinal canal stenosis with mild left and moderate to severe right neural foraminal narrowing. Is mild mass effect on the exiting right L3 nerve roots. At L4-L5: There is 2 mm of anterolisthesis of L4 upon L5. There is a circumferential disc bulge with facet hypertrophy and ligamentum flavum thickening. There is severe spinal canal stenosis with moderate right neural foraminal narrowing. Impression dictated by: Sanket Lentz M.D. 03/08/2025 3:00 PM Dictation Location: [facility] [employer] Electronically authenticated by: [id number] Y Date: 03/08/2025 15:00
== END 2025-03-08 13:51 | disposition home or self-care (01) ==
LOC: MRI 13:50
PROVIDERS: PCP Family Medicine; Visit Provider Nurse Practitioner
DX: M48.062 Spinal stenosis, lumbar region with neurogenic claudication (principal); M51.369 Other intervertebral disc degeneration, lumbar region without mention of lumbar back pain or lower extremity pain
CPT/HCPCS: 72148

== ENCOUNTER 2025-03-13 12:48 | Outpatient (OUT) | payer MEDICARE, SELFPAY ==
--- OUTSIDE RECORDS SUMMARY | 2024-09-11 07:15 | XMS_ITS ---
Author Organization The [facility] in [place] Address [address] [place] [address] Care Team Providers Care Floorman Name Role Phone Pool Peace MD Primary Care Provider Ranjit Gee Unavailable [phone] REASON FOR VISIT LDCT Scheduled Encounters Encounter Location Date Provider Diagnosis Pulmonary [facility] [place] [address] [place] [address] 09/11/2024 Ranjitelisa Farrell Plan Of Treatment Next Appt Details Provider Name:Ranjitelias Farrell, 09/11/2025 10:00:00 AM, [address] [place], [address], Progress Notes * Mike OSEI LDOB:1950 (74 yo M)Acc No.[id number]:09/11/2024 Patient: Mike LAUREN :1950 A ge:74 Y S ex:Male Address:[address] [place] [address], [address] * true * Date: Generated for Antonia roque/Raquel/eTransmitting on: 0 03/13/2025 12:52 PM EDT
--- OUTSIDE RECORDS SUMMARY | 2024-09-12 07:00 | XMS_ITS ---
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 I am not an insurance verification representative, but I suggested he may want to [...] quit 2017 LDCT scheduled for 09/25/2024. 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 I am not an insurance verification representative, but I suggested he may want to [...] of tobacco abuse LDCT scheduled for 09/25/2024. 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 Obesity, unspecified Patient's weight is inducing a restrictive pulmonary physiology. Weight loss indicated: Decrease calories, increase activity. Next Appt Details Follow Up: 1 Year, Reason: A griffin Provider Name:Ranjit Preston, 09/11/2025 10:00:00 AM, [address] [place], [address], Procedure Notes * Category Sub-Category Detail Notes PFT Data: 09/16/2017-FEV1/ FVC: 72%-FEV1: 91%-FVC: 86%-No bronchodilator response-RV: 139%-T%-DLCO: 85%11/29/2019-FEV1/FVC: 77%-FEV1: 90%-FVC: 105%-Bronchodilator response: None-RV: 137%-T%-DLCO: 65% Progress Notes * Mike OSEI LDOB:1950 (74 yo M)Acc No.[id number]:09/12/2024 Follow Up Patient: Mike LAUREN Provider: Agustin Preston DO :1950 A ge:74 Y S ex:Male Date:09/12/2024 Address:[facility] [place] Pcp:Pool Peace MD Check In:10:52 AM ESTCheck [...] scheduled for his LDCT on 09/25/2024 at [facility]. Patient is under the care of [facility] Cardiology. * ROS: G eneral/Constitutional: Fever or [...] d enies. 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 D rugs/Alcohol: D rugs [...] Tablet Extended Release 24 Hour Oral Trelegy Ellipta(Dtfnvynrkgv-Zcdrjwslj-Odcphf) 200-62.5-25 MCG/ACT Aerosol Powder Breath Activated 1 [...] Extended Release 24 Hour Oral Taking Trelegy Ellipta(Bdjzitpeyuu-Pemuhdllh-Lyhiga) 200-62.5-25 MCG/ACT Aerosol Powder Breath Activated 1 [...] >>> Pulmicort/Yupelri/Brovana = Breztri > Trelegy 100, StiheatheroGavinaklir 2 . M ultiple pulmonary nodules - [...] Education on smoking effects provided?09/12/2024 Former B [place] ACTION PLAN Above Normal BMI Follow-up D ietary management education, guidance, and counseling * Follow Up: 1 Year (Reason: Asthma) * * Sign off status: Completed Visit Status: C HK (Check Out) true * Provider: Agustin Preston DO Date: 1 11/12/2023 Generated for Antonia roque/Raquel/Arabellaitting on: 0 03/13/2025 12:51 PM EDT History and Physical Notes * [...] scheduled for his LDCT on 09/25/2024 at [facility]. Patient is under the care of [facility] Cardiology. Examination Category Sub-Category Detail Notes Category Not es Exam GENERAL APPEARANCE: Appears stated age Skin Normal Mouth [place] and moist. Uppe r dentures. No candididiasis Trachea Midline Chest Normal Respiratory Normal Movements, Ef fort Normal Auscultation Diminished breath so unds. Expiratory wheezes Cardiac Regular rate and rhy thm Gastrointestinal Normal Vascular No edema Musculoskeletal Normal posture Neurological Focal, intact Psychiatric Alert and oriented x 3 Mentation/Cognition Normal Oropharynx Mallampati Class III
--- OUTSIDE RECORDS SUMMARY | 2024-09-26 04:06 | XMS_ITS ---
Author Organization [facility] in [place] Address [address] [place] [address] Care Team Providers Care Experience Specialist Name Role Phone Pool Peace MD Primary Care Provider Chavez matute KaryRanjit Unavailable [phone] REASON FOR VISIT LDCT Result Encounters Encounter Location Date Provider Diagnosis Pulmonary Medicine [place] [address] [place] [address] 09/26/2024 Ranjitelisa Farrell Plan Of Treatment Next Appt Details Provider Name:Ranjitelisa Farrell, 09/11/2025 10:00:00 AM, [address] [place], [address], Progress Notes * Mike OSEI LDOB:1950 (74 yo M)Acc No.[id number]:09/26/2024 Patient: Mike LAUREN :1950 A ge:74 Y S ex:Male Address:[address] [place] [address], [address] * true * Date: Generated for Antonia roque/Raquel/eTransmitting on: 0 03/13/2025 12:51 PM EDT
--- OUTSIDE RECORDS SUMMARY | 2024-12-31 10:20 | XMS_ITS ---
Author Organization [facility] Address [address] [place] [address] Care Team Providers Care College Admissions Counselor Name Role Phone Pool Peace Primary Care Provider Bautista Salina Yanes Unavailable [phone] REASON FOR VISIT RIGHT DISTAL FIB FX RECHECK Problems Problem Type SNOMED Code ICD Code Onset Dates Problem Status W/U Status Risk Notes Problem [id number] Closed fracture of distal end of right fibula with routine healing, unspecified fracture morphology, subsequent encounter (S82.831D) Active confirmed Encounters Encounter Location Date Provider Diagnosis [facility] Office [address] [place] [address] [place] [address] 12/31/2024 Salina Jackson Closed fracture of distal end of right fibula with routine healing, unspecified fracture morphology, subsequent encounter S82.831D Assessments Encounter Date Diagnosis (ICD Code) Assessment Notes Treatment Notes Treatment Clinical Notes Section Notes 12/31/2024 Closed fracture of distal end of right fibula with routine healing, unspecified fracture morphology, subsequent encounter (ICD-10 - S82.831D) 12/31/2024 Other Patient is doin g well weightbearing as tolerated in a tall cam walking boot. Patient wishes to continue with nonoperative management. He will remain in the boot weightbearing as tolerated we will see him back in 2 weeks to repeat x-rays and reassess his progress. Plan Of Treatment Treatment Notes Assessment Notes Other Patient is doing wel l weightbearing as tolerated in a tall cam walking boot. Patient wishes to continue with nonoperative management. He will remain in the boot weightbearing as tolerated we will see him back in 2 weeks to repeat x-rays and reassess his progress. Pending Test Test Name Order Date Ankle, right 3v - [id number] 12/31/2024 Next Appt Details Follow Up: 2 Weeks, Reason: Provider Name:Chas Correa reza, 05/06/2025 01:30:00 PM, [address] [facility], [address], [place], [address], Progress Notes * MICHELLESANDROY LDOB:1950 (75 yo M)Acc No.[id number]:12/31/2024 Patient: HUY LAUREN Provider: SCOTTY Mc :1950 A ge:74 Y S ex:Male Date:12/31/2024 Address:[facility] [place] [facility] Pcp:Pool Peace Subjective: * Chief Complaints: * R IGHT DISTAL FIB FX RECHECK * HPI: G eneral Follow Up Information: Patient returns the office today for recheck of his right distal fibula fracture that he sustained a week ago. He has been in a tall cam walking boot and weightbearing as tolerated. He states he is using crutches at times mostly with stairs. He states the pain will be the worst in the morning when he first wakes up, but will get better with movement. * Medical History: * Surgical History: * Medications: Objective: * Vitals: * Examination: G eneral examination: O n exam patient is in no distress, age-appropriate, alert and oriented x 3. Patient ambulates with antalgic gait using a tall cam walking boot, no other ambulatory aid. There is tenderness with palpation of the distal fibula and deltoid ligament. There is diffuse ecchymosis in the lower leg and foot. Calf is soft and nontender. 2+ DP pulse palpated. Patient able to wiggle toes. X -ray Imaging Studies: T hree-view x-rays of the right ankle were taken in office today and reviewed interpreted by myself as distal fibula fracture in acceptable alignment and similar to x-rays from 12/24/2024. No new fracture, no dislocation. Ankle mortise is well-maintained. Assessment: * Assessment: 1. C losed fracture of distal end of right fibula with routine healing, unspecified fracture morphology, subsequent encounter - S82.460K (Primary) Plan: * Treatment: * Procedure Codes: * Follow Up: 2 Weeks Forms: * Images: * Sign off status: Completed true * Provider: SCOTTY Mc Date: 0 12/31/2024 Generated for Antonia roque/Raquel/Bassam on: 0 03/13/2025 12:52 PM EDT History and Physical Notes * HPI (History of Present Illness) Category Sub-Category Detail Notes Category Not es General Follow Up Information Patient returns the office today for recheck of his right distal fibula fracture that he sustained a week ago. He has been in a tall cam walking boot and weightbearing as tolerated. He states he is using crutches at times mostly with stairs. He states the pain will be the worst in the morning when he first wakes up, but will get better with movement. Examination Category Sub-Category Detail Notes Category Not es General examination On exam patient is in no distress, age-appropriate, alert and oriented x 3. Patient ambulates with antalgic gait using a tall cam walking boot, no other ambulatory aid. There is tenderness with palpation of the distal fibula and deltoid ligament. There is diffuse ecchymosis in the lower leg and foot. Calf is soft and nontender. 2+ DP pulse palpated. Patient able to wiggle toes. X-ray Imaging Studies Three- view x-rays of the right ankle were taken in office today and reviewed interpreted by myself as distal fibula fracture in acceptable alignment and similar to x-rays from 12/24/2024. No new fracture, no dislocation. Ankle mortise is well-maintained.
--- OUTSIDE RECORDS SUMMARY | 2025-01-14 10:10 | XMS_ITS ---
Author Organization [facility] Address [address] [place] [address] Care Team Providers Care Emergency Department Nurse Name Role Phone Pool Peace Primary Care Provider Chas Boothe Unavailable [phone] REASON FOR VISIT right distal fib fracture check, Right knee pain Encounters Encounter Location Date Provider Diagnosis [facility] [address] [place] [address] 01/14/2025 Chas Arenas Closed fracture of distal end of right fibula with routine healing, unspecified fracture morphology, subsequent encounter S82.831D Assessments Encounter Date Diagnosis (ICD Code) Assessment Notes Treatment Notes Treatment Clinical Notes Section Notes 01/14/2025 Closed fracture of distal end of right fibula with routine healing, unspecified fracture morphology, subsequent encounter (ICD-10 - S82.831D) Right distal fibula fracture 01/14/2025 Other I had a discussion today with Mike regarding his right distal fibula fracture. Overall appears stable. May continue weightbearing as tolerated. Will see him back in the office in 1 month with repeat x-rays. Right distal fibula fracture Plan Of Treatment Treatment Notes Assessment Notes Other I had a discussion t lisa with Mike regarding his right distal fibula fracture. Overall appears stable. May continue weightbearing as tolerated. Will see him back in the office in 1 month with repeat x-rays. Pending Test Test Name Order Date SCC- ANKLE 3 VIEW RIGHT [id number] 01/14/2025 Next Appt Details Follow Up: 4 Weeks, Reason: Provider Name:Chas cobb, 05/06/2025 01:30:00 PM, [address] [facility], [address], [place], [address], Progress Notes * MIKE MARTINEZ LDOB:1950 (75 yo M)Acc No.[id number]:01/14/2025 Patient: MIKE LAUREN Provider: Rachelle Arenas DO :1950 A ge:74 Y S ex:Male Date:01/14/2025 Address:[facility], [id number] Pcp:Pool Peace Subjective: * Chief Complaints: * R ight distal fib fracture checkRight knee pain * HPI: G eneral Follow Up Information: Mike is a 74-year-old male presents today for follow-up for his right distal fibular fracture. He is about 1 month out from injury today. Overall doing quite well. Weightbearing out of boot. Not having much pain. No new falls or complaints today. * ROS: C onstitutional: Denies C hills. P M and R Intake: Denies F ever. D enies fever, chills, numbness tingling. * Medical History: * Surgical History: * Medications: Objective: * Vitals: * Examination: G eneral examination: R ight lower extremity:Skin is intact. Improving swelling. No ecchymosis. Tenderness to palpation present although minimal. Motor and sensory exam intact without deficits. 2+ DP pulse. X -ray Imaging Studies: I reviewed plain film x-rays of the right ankle in office today demonstrates a stable distal fibular fracture with early interval callus formation. No displacement prior x-rays. Assessment: * Assessment: 1. C losed fracture of distal end of right fibula with routine healing, unspecified fracture morphology, subsequent encounter - C33.994T (Primary) Right distal fibula fracture . Plan: * Treatment: 2. O thers Notes: I had a discussion today with Mike regarding his right distal fibula fracture. Overall appears stable. May continue weightbearing as tolerated. Will see him back in the office in 1 month with repeat x-rays. * Procedure Codes: * Follow Up: 4 Weeks Forms: * Images: * Sign off status: Completed true * Provider: Rachelle Arenas DO Date: 0 01/14/2025 Generated for Antonia roque/Raquel/Arabellaitting on: 0 03/13/2025 12:51 PM EDT History and Physical Notes * HPI (History of Present Illness) Category Sub-Category Detail Notes Category Not es General Follow Up Information Mike is a 74-year-ol d male presents today for follow-up for his right distal fibular fracture. He is about 1 month out from injury today. Overall doing quite well. Weightbearing out of boot. Not having much pain. No new falls or complaints today. Examination Category Sub-Category Detail Notes Category Not es General examination Right lo wer extremity:Skin is intact. Improving swelling. No ecchymosis. Tenderness to palpation present although minimal. Motor and sensory exam intact without deficits. 2+ DP pulse X-ray Imaging Studies I revi ewed plain film x-rays of the right ankle in office today demonstrates a stable distal fibular fracture with early interval callus formation. No displacement prior x-rays.
--- OUTSIDE RECORDS SUMMARY | 2025-02-18 10:00 | XMS_ITS ---
Author Organization [facility] Address [address] [place] [address] Care Team Providers Care Product Inspection Coordinator Name Role Phone Pool Peace Primary Care Provider Chas Boothe Unavailable [phone] REASON FOR VISIT RIGHT DISTAL FIB FRACTURE CHECK, Right ankle pain Encounters Encounter Location Date Provider Diagnosis [facility] Office [address] [place] [address] [place] [address] 02/18/2025 Chas Arenas Closed fracture of distal end of right fibula with routine healing, unspecified fracture morphology, subsequent encounter S82.831D Assessments Encounter Date Diagnosis (ICD Code) Assessment Notes Treatment Notes Treatment Clinical Notes Section Notes 02/18/2025 Closed fracture of distal end of right fibula with routine healing, unspecified fracture morphology, subsequent encounter (ICD-10 - S82.831D) Right distal fibula fracture 02/18/2025 Other Patient overall doing well today in regard to his right distal fibula fracture. He is ambulating without any assistive devices. Not having much pain. Recommend continued monitoring of the fracture. See him back in 2 months with likely final x-rays. Right distal fibula fracture Plan Of Treatment Treatment Notes Assessment Notes Other Patient overall doin g well today in regard to his right distal fibula fracture. He is ambulating without any assistive devices. Not having much pain. Recommend continued monitoring of the fracture. See him back in 2 months with likely final x-rays. Pending Test Test Name Order Date SCC- ANKLE 3 VIEW RIGHT [id number] 02/18/2025 Next Appt Details Follow Up: 2 Months, Reason: Provider Name:Chas cobb, 05/06/2025 01:30:00 PM, [address] [facility], [address], [place], [address], Progress Notes * HUY MARTINEZ LDOB:1950 (75 yo M)Acc No.[id number]:02/18/2025 Patient: HUY LAUREN Provider: Rachelle Arenas DO :1950 A ge:75 Y S ex:Male Date:02/18/2025 Address:[facility] [place] [facility], [id number] Pcp:Pool Peace Subjective: * Chief Complaints: * 1 . RIGHT DISTAL FIB FRACTURE CHECK. 2. Right ankle pain. * HPI: G eneral Follow Up Information: Patient is a 75-year-old male presents today for right ankle pain. He is 2 months out from distal fibula fracture. Overall doing quite well today in regards to right ankle. Only having pain occasionally. No new falls or injuries. Does note some right hip pain which she is going to see a pain management doctor for he is had spinal injections the past with help with this. * ROS: C onstitutional: Denies C hills. P M and R Intake: Denies F ever. D enies fever, chills, stealing. * Medical History: Objective: * Vitals: * Examination: G eneral examination: R ight lower extremity:Skin intact. No effusion. No tenderness palpation about the ankle. Good range of motion. EHL/FHL/GS with TA motor complex intact without deficit or 2+ DP pulse. X -ray Imaging Studies: R eviewed plain film x-rays of right ankle in office today demonstrates a distal fibula spiral fracture unchanged alignment from prior x-rays. There has been interval callus formation. No lytic or blastic lesions. Assessment: * Assessment: 1. C losed fracture of distal end of right fibula with routine healing, unspecified fracture morphology, subsequent encounter - H12.381I (Primary) Right distal fibula fracture . Plan: * Treatment: 2. O thers Notes: Patient overall doing well today in regard to his right distal fibula fracture. He is ambulating without any assistive devices. Not having much pain. Recommend continued monitoring of the fracture. See him back in 2 months with likely final x-rays. * Follow Up: 2 Months Forms: * Images: * Electronic signature of Florentin vargas Arenas , DO on 03/13/2025 at 12:51 PM EDT Sign off status: Pending * Provider: Rachelle Arenas, DO Date: 0 02/18/2025 Generated for Antonia roque/Raquel/Arabellaitting on: 0 03/13/2025 12:51 PM EDT History and Physical Notes * HPI (History of Present Illness) Category Sub-Category Detail Notes Category Not es General Follow Up Information Patient is a 75-year -old male presents today for right ankle pain. He is 2 months out from distal fibula fracture. Overall doing quite well today in regards to right ankle. Only having pain occasionally. No new falls or injuries. Does note some right hip pain which she is going to see a pain management doctor for he is had spinal injections the past with help with this. Examination Category Sub-Category Detail Notes Category Not es General examination Right lo wer extremity:Skin intact. No effusion. No tenderness palpation about the ankle. Good range of motion. EHL/FHL/GS with TA motor complex intact without deficit or 2+ DP pulse X-ray Imaging Studies Review ed plain film x-rays of right ankle in office today demonstrates a distal fibula spiral fracture unchanged alignment from prior x-rays. There has been interval callus formation. No lytic or blastic lesions.
--- OUTSIDE RECORDS SUMMARY | 2025-03-13 12:51 | XMS_ITS | Encounter Summary ---
Author Organization [facility] Address [address] [place] [address] Care Team Providers Care Railroad Engineer Name Role Phone Pool Peace MD Primary Care Provider [phone] Pool Peace MD Unavailable Pool Peace MD Primary Care Provider [phone] Encounter Details Date Type Department Care Team (Late st Contact Info) Description 01/10/2024 Clinisync Result Encounter [facility] External Department Unsolicited Provider, Generic External Data Social History Tobacco Use Types Packs/Day Years Used Date Smoking Tobacco: Never Assessed Sex and Gender Information Value Date Recorded Sex Assigned at Not on file Legal Sex Male 9:35 PM EDT Gender Identity Not on file Sexual Orientation Not on file documented as of this encounter Plan of Treatment Upcoming Encounters Date Type Department Care Team (Late st Contact Info) Description 08/27/2025 11:00 AM EST Office Visit [facility] [address] [place] [address] Pool Peace MD [address] [place] [address] documented as of this encounter Procedures Procedure Name Priority Date/Time Associated Diagnosis Comments VASC US ANKLE BRACHIAL INDEX (GEETHA) WITH EXERCISE 01/10/2024 2:06 PM EDT documented in this encounter Results * Vascular US ankle brachial index (GEETHA) with exercise (01/10/2024 2:06 PM EDT) Anatomical Region Laterality Modality Lower Extremities Ultrasound 01/10/2024 2:06 PM EDT Narrative 01/10/2024 11:02 [place] [address] Cardiology Report Signed Patient: MIKE OSEI MR#: [id number] : 1950 Acct:[id number] Age/Sex: 73 / M ADM Date: 01/10/24 Loc: CARD Attending Dr: ARON ANDERSON Ordering Physician: ARON ANDERSON Date of Service: 01/10/24 Procedure(s): CA pre/post exercise vasc VARINDER Accession Number(s): [id number] cc: ARON ANDERSON ; Pool Peace M.D. [facility] Test Date: 2024-01-10 Pat Name: MIKE OSEI Department: Room: - Gender: Male Revising Clerk: : 1950 Requested By: ARON ANDERSON M.D. Order Number: [id number] Reading MD: JEB ROJAS Interpretive Statements Biphasic doppler waveforms PVR waveforms with normal upstroke, amplitude and dicrotic notch Right: - significant pressure gradient between the calf and DP cuff - normal GEETHA Left: - signficant pressure gradient between the calf and DP cuff - normal GEETHA Impression: - normal arterial evaluation of the lower extremities without hemodynamic impairment of the B/L lower extremities at rest. (right GEETHA 1.06, left GEETHA 1.05) - normal response to exercise in the right lower extremity and an abnormal response to exercise in the left lower extremity, which is consistent with arterial disease in the left lower extremity. - clinical correlation advised Electronically Signed On 01-10-2024 23:02:05 EDT by JEB ROJAS Dictated By: Jeb Rojas D.O. Signed By: 01/10/24230101/10/242301 DD/ 1406 TD/TT: Parts Salesman: Procedure Note Radiology, Radiologist, - 01/10/2024 [place] [id number] Cardiology Report Signed Patient: MIKE OSEI LMR#: [id number] : 8Acct:[id number] Age/Sex: 73 / MADM Date: 01/10/24 Loc: CARD Attending Dr: ARON ANDERSON Ordering Physician: ARON ANDERSON Date of Service: 01/10/24 Procedure(s): CA pre/post exercise vasc VARINDER Accession Number(s): [id number] cc: ARON ANDERSON ; Pool Peace M.D. [facility] Test Date: 2024-01-10 Pat Name: MIKE OSEI Department: Room: - Gender: Male Revising Clerk: : 1950 Requested By: ARON ANDERSON M.D. Order Number: [id number] Reading MD: JEB ROJAS Interpretive Statements Biphasic doppler waveforms PVR waveforms with normal upstroke, amplitude and dicrotic notch Right: - significant pressure gradient between the calf and DP cuff - normal GEETHA Left: - signficant pressure gradient between the calf and DP cuff - normal GEETHA Impression: - normal arterial evaluation of the lower extremities without hemodynamic impairment of the B/L lower extremities at rest. (right GEETHA 1.06, left GEETHA 1.05) - normal response to exercise in the right lower extremity and an abnormal response to exercise in the left lower extremity, which is consistent with arterial disease in the left lower extremity. - clinical correlation advised Electronically Signed On 01-10-2024 23:02:05 EDT by JEB ROJAS Dictated By: Jeb Rojas D.O. Signed By:01/10/24230101/10/24 2302 DD/ 1406 TD/TT: Parts Salesman: us Generic External Data Provider IMG US PROCEDURES Final Result documented in this encounter Visit Diagnoses Not on filedocumented in this encounter Care Teams Railroad Engineer Relationship Specialty Start Date End Date Pool Peace MD PCP - General Family Medicine 10/24/22 08/14/24 Pool Peace MD [address] [place] [address] PCP - [facility] 11/24/23 02/21/68 Pool Peace MD [address] [place] [id number] PCP - General Family Medicine 08/15/24 documented as of this encounter
--- OUTSIDE RECORDS SUMMARY | 2025-03-13 12:51 | XMS_ITS | Clinical Summary ---
Author Organization [facility] Address [address] [place] [address] Care Team Providers Care Air Intelligence Officer Name Role Phone Pool Peace MD Unavailable Pool Peace MD Primary Care Provider [phone] Allergies Active Allergy Reactions Criticality Noted Date Comments Morphine Unknown,Nausea And Vomiting,Other Penicillins Anaphylaxis,Angio[place] ma,Hives,Itching,O ther,Rash,Unknown High 10/24/1988 Medications hydroCHLOROthiazide (HYDRODiuril) 25 MG tabletIndications:E ssential (primary) hypertension (CMS/HCC),Benign essential hypertension (CMS/HCC) TAKE 1 TABLET BY MOUTH EVERY DAY 90 tablet 3 4 Active losartan (Cozaar) 100 MG tabletIndications:E ssential (primary) hypertension (CMS/HCC),Benign essential hypertension (CMS/HCC) Take 1 tablet (100 mg) by mouth Daily 100 tablet 3 4 07/24/20 25 Active Trelegy Ellipta 200-62.5-25 MCG/ACT aerosol powder 4 Active atorvastatin (Lipitor) 40 MG tablet Take 80 mg by mouth Daily Active clopidogrel (Plavix) 75 MG tablet Take 75 mg by mouth Daily 4 Active metoprolol succinate XL (Toprol-XL) 50 MG 24 hr tablet Take 50 mg by mouth in the morning. Active predniSONE (Deltasone) 50 MG tabletIndications:D egeneration of intervertebral disc of lumbar region with discogenic back pain Take 1 tablet (50 mg) by mouth Daily for 6 days 6 tablet 5 04/29/20 25 Active Problems Problem Noted Date Diagnosed Date Fatigue 02/13/2025 Encounter for long-term (current) use of medicat ions 02/13/2025 Encounter for Medicare annual wellness exam 07/25 Assessment & Plan (08/15/2024 2:58 PM EDT): Due for labs. Discussed proper diet and regular aerobic exercise. Need aerobic exercise 5-6 days a week for 30 minutes at a time. Smaller portions and limit total calories. Colonoscopy every 10 years. Tetanus every 10 years. Advised not to smoke. Discussed daily Aspirin therapy. Screening PSA (prostate specific antigen) [address] of the abdomen 02/14/2024 Essential hypertension, benign 02/14/2024 Assessment & Plan (02/13/2025 10:32 AM EDT): BP controlled and monitor PRN. BPH without urinary obstruction 02/14/2024 CAD in [place] artery 02/14/2024 Cholelithiasis without cholecystitis 02/14/2024 Chronic obstructive pulmonary disease (COPD) Assessment & Plan (02/13/2025 10:31 AM EDT): Breathing stable and continue inhalers. Follow with pulmonology. Chronic kidney disease (CKD), stage III (moderat e) ([facility]) 02/14/2024 DDD (degenerative disc disease), lumbar 02/14/20 24 Assessment & Plan (02/13/2025 10:31 AM EDT): Pain worse after using walking boot. Treat with prednisone. Refer back to pain management. Dyslipidemia 02/14/2024 Osteoarthritis of right knee 02/14/2024 Obstructive sleep apnea 02/14/2024 PAD (peripheral artery disease) 02/14/2024 Assessment & Plan (02/13/2025 10:32 AM EDT): Continue medication. Allergic rhinitis due to pollen 02/14/2024 Vitamin D deficiency 02/14/2024 Encounters Date Type Department Care Team Description 03/08/2025 Clinisync Result Encounter [facility] External Department Unsolicited Provider, Generic External Data 02/21/2025 Clinisync Result Encounter [facility] External Department Unsolicited Provider, Generic External Data 02/18/2025 Clinisync Result Encounter [facility] External Department Unsolicited Provider, Generic External Data 02/13/2025 9:30 AM EDT Office Visit [facility] [address] [place] [address] Pool Peace MD Essential hypertension, benign (CMS/HCC) (Primary Dx); Chronic obstructive pulmonary disease, unspecified COPD type (CMS/HCC); Fatigue, unspecified type; Degeneration of intervertebral disc of lumbar region with discogenic back pain; PAD (peripheral artery disease) (CMS/HCC); Stage 3b chronic kidney disease (HCC) (CMS/HCC); Encounter for long-term (current) use of medications 02/13/2025 Results Follow-Up [facility] [address] [place] [address] Pool Peace MD 02/13/2025 Clinisync Result Encounter [facility] External Department Unsolicited Pool Peace MD 02/13/2025 Bamboo flowsheet [facility] [address] [place] [address] Pool Peace MD 02/06/2025 Travel 01/14/2025 Clinisync Result Encounter [facility] External Department Unsolicited Provider, Generic External Data 01/01/2025 Clinisync Result Encounter [facility] External Department Unsolicited Provider, Generic External Data from Last 3 Months Immunizations Immunization Administration Dates Next Due Influenza, seasonal, injectable, preservative fr ee 08/15/2024 Social History Tobacco Use Types Packs/Day Years Used Date Smoking Tobacco: Former Cigarettes Smokeless Tobacco: Never Tobacco Cessation:Counseling Given: Not Answered Social Connection and Isolat ion Panel [NHANES] Answer Date Recorded In a typical week, how many times do you talk on the phone with family, friends, or neighbors? More than three times a week 02/08/2024 How often do you get togethe r with friends or relatives? Twice a week 02/08/2024 How often do you attend [facility] or congregation services? More than 4 times per year 02/08/2024 Do you belong to any clubs o r organizations such as taoist groups, unions, fraternal or athletic groups, or school groups? Yes 02/08/2024 How often do you attend meet ings of the clubs or organizations you belong to? Patient declined 02/08/2024 Are you , , di vorced, , never , or living with a partner? 02/08/2024 AUDIT-C Answer Date Recorded Q1: How often do you have a drink containing alcohol? 4 or more times a week 02/08/2024 Q2: How many drinks containi ng alcohol do you have on a typical day when you are drinking? 3 or 4 Q3: How often do you have si x or more drinks on one occasion? Monthly 02/08/2024 Overall Financial Resource Strain (CARDIA) Answe r Date Recorded How hard is it for you to pa y for the very basics like food, housing, medical care, and heating? Not hard at all 02/08/2024 PHQ-2 Answer Date Recorded Patient Health Questionnaire-2 Score 0 08/15/2024 [facility] - Occupational Stress Questionnaire Answer Date Recorded Do you feel stress - tense, restless, nervous, or anxious, or unable to sleep at night because your mind is troubled all the time - these days? Not at all 02/08/2024 Exercise Vital Sign Answer Date Recorde d On average, how many days pe r week do you engage in moderate to strenuous exercise (like a brisk walk)? 1 day 02/08/2024 On average, how many minutes do you engage in exercise at this level? 40 min 02/08/2024 Hunger Vital Sign Answer Date Recorded Within the past 12 months, y ou worried that your food would run out before you got the money to buy more. Never true 02/08/20 24 Within the past 12 months, t he food you bought just didn't last and you didn't have money to get more. Never true 02/08/2024 PRAPARE - Transportation Answer Date Re corded In the past 12 months, has l ack of transportation kept you from medical appointments or from getting medications? No 01/22 In the past 12 months, has l ack of transportation kept you from meetings, work, or from getting things needed for daily living? No 02/08/2024 Housing Stability Vital Sign Answer Gagan e Recorded In the last 12 months, was t here a time when you were not able to pay the mortgage or rent on time? No 02/08/2024 Number of Places Lived in the Last Year Not on f ile 02/08/2024 In the last 12 months, was t here a time when you did not have a steady place to sleep or slept in a senior living (including now)? No 02/08/2024 Sex and Gender Information Value Date Recorded Sex Assigned at Not on file Legal Sex Male 9:35 PM EDT Gender Identity Not on file Sexual Orientation Not on file Last Filed Vital Signs Vital Sign Reading Time Taken Comments Blood Pressure 128/66 02/13/2025 9:44 AM EDT Pulse 77 02/13/2025 9:44 AM EDT Temperature 36.3 C (97.3 F) 02/13/2025 9:44 AM EDT Respiratory Rate 20 02/13/2025 9:44 AM EDT Oxygen Saturation 97% 02/13/2025 9:44 AM EDT Inhaled Oxygen Concentration - - Weight 96.2 kg (212 lb) 02/13/2025 9:44 AM EDT Height 177.8 cm (5' 10 ) 02/13/2025 9:44 AM EDT Body Mass Index 30.42 02/13/2025 9:44 AM EDT Plan of Treatment Upcoming Encounters Date Type Department Care Team (Late st Contact Info) Description 08/27/2025 11:00 AM EST Office Visit [facility] [address] [place] [address] Pool Peace MD [address] [place] [address] Health Maintenance Due Date Last Done Comments Pneumococcal Vaccine: 65+ Ye ars (2 of 2 - PCV) 05/05/2021 05/05/2020 Medicare Annual Wellness (AWV) 08/15/2025 08/15/2024 Colonoscopy Discontinued 07/22/2023 Colorectal Cancer Screening Discontinued Influenza Vaccine Completed 08/15/2024, 09/15/2021 CT Colonography Discontinued FIT-DNA Discontinued FIT Discontinued FOBT Discontinued Sigmoidoscopy Discontinued Procedures Procedure Name Priority Date/Time Associated Diagnosis Comments MR LUMBAR SPINE WO CON 03/08/2025 3:00 PM EDT XR LUMBAR SPINE 6V W BENDING 02/21/2025 11:59 AM EDT XR ANKLE RT MIN 3V 02/18/2025 4: 01 PM EDT ALL CBC WITH AUTO DIFF Routine 02/13/2025 11:05 AM EDT ALL BASIC METABOLIC PANEL Routine 02/13/2025 11:05 AM EDT HP LIVER PANEL Routine 02/13/2025 11:0 5 AM EDT XR ANKLE RT MIN 3V 01/14/2025 2: 53 PM EDT XR ANKLE RT MIN 3V 01/01/2025 3: 15 PM EDT from Last 3 Months Results * MR LUMBAR SPINE WO CON (03/08/2025 3:00 PM EDT) Anatomical Region Laterality Modality Other 03/08/2025 3:00 PM EDT Narrative 03/08/2025 3:02 [place] [address] Magnetic Resonance Report Signed Patient: MIKE OSEI MR#: [id number] : 1950 Acct:[id number] Age/Sex: 75 / M ADM Date: 03/08/25 Loc: MRI Attending Dr: Maricarmen Shaw NP Ordering Physician: Maricarmen Shaw NP Date of Service: 03/08/25 Procedure(s): MR lumbar spine wo con Accession Number(s): [id number] cc: Maricarmen Shaw NP; Pool Peace M.D. The [place] [id number] Patient Name: MIKE OSEI MRN: [id number] date: 1950 Sex: M Assigned Patient Location: MRI Current Patient Location: MRI Accession/Order Number: [id number] Exam Date: 03/08/2025 14:55 Report Date: 03/08/2025 15:00 At the request of: MARICARMEN SHAW NP Procedure: MR lumbar spine wo con MR lumbar spine wo con 03/08/2025 2:34 PM SIGNS AND SYMPTOMS: Low back pain radiating into lower extremities PROTOCOL: Multiplanar multisequence MR images of the lumbar spine without IV contrast COMPARISON: 02/21/2025 FINDINGS: There is 2 mm of anterolisthesis of L4 upon L5 secondary to facet hypertrophy.. There is preservation of vertebral body heights. There is disc desiccation with mild disc height loss at L2-3, L3-L4, L4-5, and L5-S1. Mild Schmorl's node formation is noted in the endplates at T12, L1, and L2. The marrow signal is within normal limits. The conus terminates at the L1-L2 intervertebral disc level. No epidural or paraspinous fluid collection is appreciated. Simple cysts are noted in the renal cortices. Degenerative changes are noted in the sacroiliac joints. At T12-L1: There is a normal disc, central canal, and neural foramen. At L1-L2: There is a broad-based disc bulge with facet hypertrophy. There is mild to moderate spinal canal stenosis. There is mild bilateral neural foraminal stenosis. At L2-L3: There is a circumferential disc bulge with facet hypertrophy and ligamentum flavum thickening. There is a focal central disc extrusion with mild caudal migration. There is moderate to severe spinal canal narrowing. There is mild right and moderate left neural foraminal narrowing. At L3-L4: There is a broad-based disc bulge with endplate osteophyte formation right greater than left. There is facet hypertrophy. There is moderate spinal canal stenosis with mild left and moderate to severe right neural foraminal narrowing. Is mild mass effect on the exiting right L3 nerve roots. At L4-L5: There is 2 mm of anterolisthesis of L4 upon L5. There is a circumferential disc bulge with facet hypertrophy and ligamentum flavum thickening. There is severe spinal canal stenosis with moderate right neural foraminal narrowing. At L5-S1: There is a broad-based disc bulge with facet hypertrophy and endplate osteophyte formation. There is mild left and moderate right neural foraminal narrowing with mild spinal canal narrowing. MR/MR lumbar spine wo con IMPRESSION: At L2-L3: There is a circumferential disc bulge with facet hypertrophy and ligamentum flavum thickening. There is a focal central disc extrusion with mild caudal migration. There is moderate to severe spinal canal narrowing. There is mild right and moderate left neural foraminal narrowing. At L3-L4: There is a broad-based disc bulge with endplate osteophyte formation right greater than left. There is facet hypertrophy. There is moderate spinal canal stenosis with mild left and moderate to severe right neural foraminal narrowing. Is mild mass effect on the exiting right L3 nerve roots. At L4-L5: There is 2 mm of anterolisthesis of L4 upon L5. There is a circumferential disc bulge with facet hypertrophy and ligamentum flavum thickening. There is severe spinal canal stenosis with moderate right neural foraminal narrowing. Impression dictated by: Sanket Lentz M.D. 03/08/2025 3:00 PM Dictation Location: [place] [address] Electronically authenticated by: [id number] Y Date: 03/08/2025 15:00 Dictated By: Sanket Lentz M.D. Signed By: 03/08/25 1502 DD/ 1500 TD/TT: Director Report: Procedure Note Radiology, Radiologist, MD - 03/08/2025 [place] [address] Magnetic Resonance Report Signed Patient: MIKE OSEI LMR#: [id number] : 8Acct:[id number] Age/Sex: 75 / MADM Date: 03/08/25 Loc: MRI Attending Dr: Maricarmen Shaw NP Ordering Physician: Maricarmen Shaw NP Date of Service: 03/08/25 Procedure(s): MR lumbar spine wo con Accession Number(s): [id number] cc: Maricarmen Shaw NP; Pool Peace M.D. The [place] [id number] Patient Name: MIKE OSEI MRN: [facility]:[id number] date: 1950 Sex: M Assigned Patient Location: MRI Current Patient Location: MRI Accession/Order Number: [id number] Exam Date: 03/08/2025 14:55 Report Date: 03/08/2025 15:00 At the request of: MARICARMEN SHAW NP Procedure: MR lumbar spine wo con MR lumbar spine wo con 03/08/2025 2:34 PM SIGNS AND SYMPTOMS: Low back pain radiating into lower extremities PROTOCOL: Multiplanar multisequence MR images of the lumbar spine withoutIV contrast COMPARISON: 02/21/2025 FINDINGS: There is 2 mm of anterolisthesis of L4 upon L5 secondary tofacet hypertrophy.. There is preservation of vertebral body heights. There isdisc desiccation with mild disc height loss at L2-3, L3-L4, L4-5, and L5-S1.Mild Schmorl's node formation is noted in the endplates at T12, L1, and L2.The marrow signal is within normal limits. The conus terminates at the L1-L2 intervertebral disc level. No epidural or paraspinous fluid collection is appreciated. Simple cysts are noted in the renal cortices. Degenerative changes are noted in the sacroiliac joints. At T12-L1: There is a normal disc, central canal, and neural foramen. At L1-L2: There is a broad-based disc bulge with facet hypertrophy. Thereis mild to moderate spinal canal stenosis. There is mild bilateral neural foraminal stenosis. At L2-L3: There is a circumferential disc bulge with facet hypertrophy and ligamentum flavum thickening. There is a focal central disc extrusionwith mild caudal migration. There is moderate to severe spinal canalnarrowing. There is mild right and moderate left neural foraminal narrowing. At L3-L4: There is a broad-based disc bulge with endplate osteophyteformation right greater than left. There is facet hypertrophy. There is moderate spinal canal stenosis with mild left and moderate to severe right neural foraminal narrowing. Is mild mass effect on the exiting right L3 nerveroots. At L4-L5: There is 2 mm of anterolisthesis of L4 upon L5. There is a circumferential disc bulge with facet hypertrophy and ligamentum flavum thickening. There is severe spinal canal stenosis with moderate rightneural foraminal narrowing. At L5-S1: There is a broad-based disc bulge with facet hypertrophy and endplate osteophyte formation. There is mild left and moderate rightneural foraminal narrowing with mild spinal canal narrowing. MR/MR lumbar spine wo con IMPRESSION: At L2-L3: There is a circumferential disc bulge with facet hypertrophy and ligamentum flavum thickening. There is a focal central disc extrusionwith mild caudal migration. There is moderate to severe spinal canalnarrowing. There is mild right and moderate left neural foraminal narrowing. At L3-L4: There is a broad-based disc bulge with endplate osteophyteformation right greater than left. There is facet hypertrophy. There is moderate spinal canal stenosis with mild left and moderate to severe right neural foraminal narrowing. Is mild mass effect on the exiting right L3 nerveroots. At L4-L5: There is 2 mm of anterolisthesis of L4 upon L5. There is a circumferential disc bulge with facet hypertrophy and ligamentum flavum thickening. There is severe spinal canal stenosis with moderate rightneural foraminal narrowing. Impression dictated by: Sanket Lentz M.D. 03/08/2025 3:00 PM Dictation Location: [place] [address] Electronically authenticated by: [id number] Y Date: 5:00 Dictated By: Sanket Lentz M.D. Signed By:03/08/25 1502 DD/ 1500 TD/TT: Director Report: Generic External Data Provider [facility] Final Result * XR LUMBAR SPINE 6V W BENDING (02/21/2025 11:59 AM EDT) Anatomical Region Laterality Modality Other 02/21/2025 11:5 9 AM EDT Narrative 02/21/2025 12:01 PM EDT [address] [address] XRay Report Signed Patient: MIKE OSEI MR#: [id number] : 1950 Acct:[id number] Age/Sex: 75 / M ADM Date: 02/21/25 Loc: RAD Attending Dr: Maricarmen Shaw NP Ordering Physician: Maricarmen Shaw NP Date of Service: 02/21/25 Procedure(s): XR lumbar spine 6V w bending Accession Number(s): [id number] cc: Maricarmen Shaw NP; Pool Peace M.D. The [address] [address] Patient Name: MIKE OSEI MRN: [facility]:[id number] date: 1950 Sex: M Assigned Patient Location: RAD Current Patient Location: [facility] Accession/Order Number: [id number] Exam Date: 02/21/2025 11:57 Report Date: 02/21/2025 11:59 At the request of: MARICARMEN SHAW NP Procedure: XR lumbar spine 6V w bending LUMBAR SPINE - 7 views CLINICAL HISTORY: Lumbar Stenosis COMPARISON: Lumbar spine 10/26/2022 FINDINGS: Vertebral body heights appear maintained. Scattered endplate and facet joint degenerative changes with mild disc space narrowing at L5-S1. No pathological motion on flexion or extension views. SI joints demonstrate degenerative change. XR/XR lumbar spine 6V w bending IMPRESSION: THERE ARE CHANGES INVOLVING THE LUMBAR SPINE WITH MILD DISC SPACE NARROWING L5-S1. Impression dictated by: Ezra Lacy Jr., DOtonielOOtoniel 02/21/2025 11:59 AM Dictation Location: [place] [address] Electronically authenticated by: [id number] Y Date: 02/21/2025 11:59 Dictated By: Ezra Lacy M.D. Signed By: 02/21/25 1201 DD/ 1159 TD/TT: Director Report: Procedure Note Radiology, Radiologist, MD - 02/21/2025 [place] [address] XRay Report Signed Patient: MIKE OSEI LMR#: [id number] : 8Acct:[id number] Age/Sex: 75 / MADM Date: 02/21/25 Loc: RAD Attending Dr: Maricarmen Shaw NP Ordering Physician: Maricarmen Shaw NP Date of Service: 02/21/25 Procedure(s): XR lumbar spine 6V w bending Accession Number(s): [id number] cc: Maricarmen Shaw NP; Pool Peace M.D. The [address] [address] Patient Name: MIKE OSEI MRN: [id number] date: 1950 Sex: M Assigned Patient Location: [facility] Current Patient Location: RAD Accession/Order Number: [id number] Exam Date: 02/21/2025 11:57 Report Date: 02/21/2025 11:59 At the request of: MARICARMEN SHAW NP Procedure: XR lumbar spine 6V w bending LUMBAR SPINE - 7 views CLINICAL HISTORY: Lumbar Stenosis COMPARISON: Lumbar spine 10/26/2022 FINDINGS: Vertebral body heights appear maintained. Scattered endplateand facet joint degenerative changes with mild disc space narrowing at L5-S1.No pathological motion on flexion or extension views. SI joints demonstrate degenerative change. XR/XR lumbar spine 6V w bending IMPRESSION: THERE ARE CHANGES INVOLVING THE LUMBAR SPINE WITH MILD DISC SPACENARROWING L5-S1. Impression dictated by: Ezra Lacy Jr., D.O. 02/21/2025 11:59 AM Dictation Location: [place] [address] Electronically authenticated by: [id number] Y Date: 1:59 Dictated By: Ezra Lacy M.D. Signed By:02/21/25 1201 DD/ 1159 TD/TT: Director Report: us Generic External Data Provider [facility] Final Result * XR ANKLE RT MIN 3V (02/18/2025 4:01 PM EDT) Only the most recent of3 resultswithin the time period is included. Anatomical Region Laterality Modality Other 02/18/2025 4:01 PM EDT Narrative 02/18/2025 4:04 PM EDT The [place] [id number] XRay Report Signed Patient: MIKE OSEI MR#: [id number] : 1950 Acct:[id number] Age/Sex: 75 / M ADM Date: 02/18/25 Loc: EC Attending Dr: Chas Arenas M.D. Ordering Physician: Chas Arenas M.D. Date of Service: 02/18/25 Procedure(s): XR ankle RT min 3V Accession Number(s): [id number] cc: Chas Arenas M.D.; Pool Peace M.D. The [place] [address] Patient Name: MIKE OSEI MRN: [id number] date: 1950 Sex: M Assigned Patient Location: Current Patient Location: Accession/Order Number: [id number] Exam Date: 02/18/2025 16:00 Report Date: 02/18/2025 16:01 At the request of: CHAS ARENAS MD Procedure: XR ankle RT min 3V RIGHT ANKLE - 3 views CLINICAL HISTORY: S82.831D Closed fracture of distal end of right fibula COMPARISON: Ankle series 01/14/2025 FINDINGS: Diffuse soft tissue swelling. Dista Fibular fracture grossly unchanged alignment with callus formation suggestive of healing response. XR/XR ankle RT min 3V IMPRESSION: HEALING DISTAL FIBULAR FRACTURE. Impression dictated by: Ezra Lacy Jr. DOtonielOOtoniel 02/18/2025 4:01 PM Dictation Location: [place] [address] Electronically authenticated by: [id number] Y Date: 02/18/2025 16:01 Dictated By: Ezra Lacy M.D. Signed By: 02/18/25 1604 DD/ 1601 TD/TT: Director Report: Procedure Note Radiology, Radiologist, - 02/18/2025 [place] [address] XRay Report Signed Patient: MIKE OSEI LMR#: [id number] : 1950cct:[id number] Age/Sex: 75 / MADM Date: 02/18/25 Loc: EC Attending Dr: Chas Arenas M.D. Ordering Physician: Chas Arenas M.D. Date of Service: 02/18/25 Procedure(s): XR ankle RT min 3V Accession Number(s): [id number] cc: Chas Arenas M.D.; Pool Peace M.D. [place] [id number] Patient Name: IMKE OSEI MRN: [facility]:[id number] date: 1950 Sex: M Assigned Patient Location: Current Patient Location: Accession/Order Number: [id number] Exam Date: 02/18/2025 16:00 Report Date: 02/18/2025 16:01 At the request of: CHAS ARENAS MD Procedure: XR ankle RT min 3V RIGHT ANKLE - 3 views CLINICAL HISTORY: S82.831D Closed fracture of distal end of right fibula COMPARISON: Ankle series 01/14/2025 FINDINGS: Diffuse soft tissue swelling. Dista Fibular fracture grossly unchanged alignment with callus formation suggestive of healing response. XR/XR ankle RT min 3V IMPRESSION: HEALING DISTAL FIBULAR FRACTURE. Impression dictated by: Octavio White Jr.OOtoniel 02/18/2025 4:01 PM Dictation Location: [place] [address] Electronically authenticated by: [id number] Y Date: 6:01 Dictated By: Ezra Lacy M.D. Signed By:02/18/25 1604 DD/ 1601 TD/TT: Director Report: us Generic External Data Provider [facility] Final Result * [facility] LIVER PANEL (02/13/2025 11:05 AM EDT) BILIRUBIN TOTAL 0.6 0.2 - 1.0 mg/dL [facility] BILIRUBIN DIRECT 0.2 0.0 - 0.2 mg/dL [facility] ASPARTATE AMINO TRANSFERASE 17 15 - 37 U/L [facility] ALANINE AMINOTRANSFERASE 21 16 - 63 U/L [facility] ALKALINE PHOSPHATASE 87 46 - 116 U/L [facility] TOTAL PROTEIN 7.1 6.4 - 8.2 g/dL [facility] ALBUMIN LEVEL 3.6 3.4 - 5.0 g/dL [facility] GLOBULIN 3.5 g/dL [facility] ALBUMIN GLOBULIN RATIO 1.0 [facility] 02/13/2025 11:0 5 AM EDT 02/13/2025 11:07 AM EDT Narrative [facility] - 02/13/2025 11:27 AM EDT us Pool Peace MD [facility] Final Result [facility] * (ABNORMAL) ALL CBC WITH AUTO DIFF (02/13/2025 11:05 AM EDT) [facility] WBC 7.8 4.0 - 11.0 10 3/uL [facility] TB[facility] RBC 3.62(L) 4.70 - 6.10 10 6/uL TB[facility] TB[facility] HGB 11.7(L) 14.0 - 18.0 g/dL TBH TBH HCT 34.9(L) 42.0 - 54.0 % TBH TBH MCV 96.4(H) 80.0 - 94.0 fL TBH TBH MCH 32.3 25.9 - 34.0 pg TBH TBH MCHC 33.5 29.9 - 35.2 g/dL TBH TBH RDW 13.3 11.0 - 15.0 % TBH TBH PLT 324 150 - 450 10 3/uL TBH TBH MPV 8.7(L) 9.5 - 13.5 fL TBH NEUTROPHILS PERCENT AUTO 66.0 43.0 - 75.0 % TBH LYMPHOCYTES PERCENT AUTO 15.9(L) 20.5 - 60.0 % TBH MONOCYTES PERCENT AUTO 12.3(H) 1.7 - 12.0 % TBH TBH EO % 4.2 0.9 - 7.0 % TBH BASOPHILS PERCENT AUTO 0.6 0.2 - 2.0 % TBH IMMATURE GRANULOCYTES PCT AUTO 1.0(H) 0.0 - 0.5 % TBH NEUTROPHILS ABSOLUTE AUTO 5.1 1.4 - 6.5 10 3/uL TBH LYMPHOCYTES ABSOLUTE AUTO 1.2 1.2 - 3.8 10 3/uL TBH MONOCYTES ABSOLUTE AUTO 1.0(H) 0.3 - 0.8 10 3/uL TBH TBH EO # 0.3 0.0 - 0.7 10 3/uL TBH BASOPHILS ABSOLUTE AUTO 0.1 0.0 - 0.1 10 3/uL TBH IMMATURE GRANULOCYTES ABS AUTO 0.08(H) 0.00 - 0.03 10 3/uL TBH 02/13/2025 11:0 5 AM EDT 02/13/2025 11:07 AM EDT Narrative [facility] - 02/13/2025 11:39 AM EDT Pool Peace MD [facility] Final [facility] * (ABNORMAL) ALL BASIC METABOLIC PANEL (02/13/2025 11:05 AM EDT) SODIUM 138 136 - 145 mmol/L TBH POTASSIUM 3.7 3.5 - 5.1 mmol/L TBH CHLORIDE 99 98 - 107 mmol/L TBH CARBON DIOXIDE 31.0 21.0 - 32.0 mmol/L TBH ANION GAP 11.7 TBH GLUCOSE 92 74 - 106 mg/dL TBH BLOOD UREA NITROGEN 20.0(H) 7.0 - 18.0 mg/dL TBH CREATININE 1.46(H) 0.70 - 1.30 mg/dL TBH TBH EGFR-AF GREEK 57(L) >=60 mL/min/1.7 3m 2 TBH TBH EGFR-NON AF GREEK 47(L) >=60 mL/min/1.7 3m 2 TBH BUN CREATININE RATIO 13.7 TBH CALCIUM 10.1 8.5 - 10.1 mg/dL TBH 02/13/2025 11:0 5 AM EDT 02/13/2025 11:07 AM EDT Narrative [facility] - 02/13/2025 11:27 AM EDT Pool Peace MD [facility] Final Result [facility] from Last 3 Months Insurance [employer] MEDICARE Care Teams Air Intelligence Officer Relationship Specialty Start Date End Date Pool Peace MD [address] [place] [address] PCP - [facility] 11/24/23 02/21/68 Pool Peace MD [address] [place] [address] PCP - General Family Medicine 08/15/24
--- OUTSIDE RECORDS SUMMARY | 2025-03-13 12:51 | XMS_ITS | Encounter Summary ---
Author Organization [facility] Address [address] [place] [address] Care Team Providers Care Polisher Sand Name Role Phone Pool Peace MD Primary Care Provider [phone] Pool Peace MD Unavailable Pool Peace MD Primary Care Provider [phone] Encounter Details Date Type Department Care Team (Late st Contact Info) Description 01/11/2024 Orders Only [facility] [address] [place] [phone] Dev Iniguez MD [address] [place] [address] Social History Tobacco Use Types Packs/Day Years [...] Office Visit [facility] [address] [place] [phone] Pool Peace MD [address] [place] [phone] documented as of this encounter Procedures Procedure Name Priority Date/Time Associated Diagnosis Comments STRESS CARDIAC STRESS/LEXISCAN Routine 01/10/2024 10:47 AM EDT documented in this encounter Results * STRESS CARDIAC STRESS/LEXISCAN (01/10/2024 10:47 AM EDT) Anatomical Region Laterality Modality Radiographic Lori ging Dev Iniguez MD IMG XR PROCEDURES Final Resu lt documented in this encounter Visit Diagnoses Not on filedocumented in this encounter Care Teams Polisher Sand Relationship Specialty Start Date End Date Pool Peace MD PCP - General Family Medicine 10/24/22 08/14/24 Pool Peace MD [address] [place] [address] PCP - [facility] 11/24/23 02/21/68 Pool Peace MD [address] [place] [address] PCP - General Family Medicine 08/15/24 documented as of this encounter
--- OUTSIDE RECORDS SUMMARY | 2025-03-13 12:51 | XMS_ITS | Encounter Summary ---
Author Organization [facility] Address [address] [place] [address] Care Team Providers Care Negative Turner Name Role Phone Pool Peace MD Primary Care Provider [phone] Pool Peace MD Unavailable Pool Peace MD Primary Care Provider [phone] Encounter Details Date Type Department Care Team (Late st Contact Info) Description 01/12/2024 Orders Only [facility] [address] [place] [phone] Dev Iniguez MD [address] [place] [address] Social History Tobacco Use Types [...] Office Visit [facility] [address] [place] [address] Pool Peace MD [address] [place] [phone] documented as of this encounter Procedures Procedure Name Priority Date/Time Associated Diagnosis Comments ECHO TRANSTHORACIC W/ DOPPLER Routine 01/10/2024 3:02 PM EDT documented in this encounter Results * ECHO TRANSTHORACIC W/ DOPPLER (01/10/2024 3:02 PM EDT) Anatomical Region Laterality Modality Radiographic Lori ging Dev Iniguez MD IMG XR PROCEDURES Final Resu lt documented in this encounter Visit Diagnoses Not on filedocumented in this encounter Care Teams Negative Turner Relationship Specialty Start Date End Date Pool Peace MD PCP - General Family Medicine 10/24/22 08/14/24 Pool Peace MD [address] [place] [address] PCP - [facility] 11/24/23 02/21/68 Pool Peace MD [address] [place] [address] PCP - General Family Medicine 08/15/24 documented as of this encounter
--- OUTSIDE RECORDS SUMMARY | 2025-03-13 12:51 | XMS_ITS | Clinical Summary ---
Author Organization [facility] Address [address] [place] [address] Care Team Providers Care Field Organizer Name Role Phone Unavailable Primary Care Provider Unavailabl e Social History Tobacco Use Types Packs/Day Years Used Date Smoking Tobacco: Never Assessed Sex and Gender Information Value Date Recorded Sex Assigned at Not on file Legal Sex Male 5:26 AM EST Gender Identity Not on file Sexual Orientation Not on file Plan of Treatment Health Maintenance Due Date Last Done Comments HEPATITIS C VIRUS SCREENING 1950 TETANUS 1950 TDAP (ADULT) 01/26/1967 COLORECTAL CANCER SCREENING DISCUSSION 01/26/1993 PNEUMOCOCCAL VACCINE SERIES (1 of 1 - PCV) 01/26/1998 ZOSTER (SHINGLES) VACCINE (1 of 2) 01/26/1998 RSV VACCINE (1 - 1-dose 75+ series) 01/26/2023 COVID-19 VACCINE ( - 2023-2 5 season) 2024 INFLUENZA VACCINE (Season Ended) 2025 HEP B VACCINE Aged Out No longer elig jarett based on patient's age to complete this topic
--- OUTSIDE RECORDS SUMMARY | 2025-03-13 12:51 | XMS_ITS | Encounter Summary ---
Author Organization [facility] Address [address] [place] [address] Care Team Providers Care Cellar Pumper Name Role Phone Pool Peace MD Primary Care Provider [phone] Pool Peace MD Unavailable Pool Peace MD Primary Care Provider [phone] Encounter Details Date Type Department Care Team (Late st Contact Info) Description 11/14/2023 Clinisync Result Encounter [facility] External Department Unsolicited [...] 08/27/2025 11:00 AM EST Office Visit [facility] [address] [place] [address] Pool Peace MD [address] [place] [address] documented as of this encounter Procedures Procedure Name Priority Date/Time Associated Diagnosis Comments XR CHEST 2V 11/14/2023 3:27 PM EST documented in this encounter Results * XR CHEST 2V (11/14/2023 3:27 PM EST) Anatomical Region Laterality Modality Other 11/14/2023 3:27 PM EST Narrative 11/14/2023 3:30 PM EST The [address] [address] XRay Report Signed Patient: MIKE OSEI MR#: [id number] : 1950 Acct:[id number] Age/Sex: 73 / M ADM Date: 11/14/23 Loc: RAD Attending Dr: Leigha Pedraza D.O. Ordering Physician: Leigha Pedraza D.O. Date of Service: 11/14/23 Procedure(s): XR chest 2V Accession Number(s): [id number] cc: Pool Peace M.D.; Leigha Pedraza D.O. The [address] [address] Patient Name: MIKE OSEI MRN: [id number] date: 1950 Sex: M Assigned Patient Location: [facility] Current Patient Location: [facility] Accession/Order Number: [id number] Exam Date: 11/14/2023 15:05 Report Date: 11/14/2023 15:27 At the request of: LEIGHA PEDRAZA Procedure: XR chest 2V PA AND LATERAL CHEST; 11/14/2023 3:05 PM EST Clinical History:dyspnea R06.02 Comparison: Frontal exam 06/17/2023 in 2 view study 12/28/2021. Modest compression deformity at a mid to lower thoracic levels unchanged. In the upper thoracic region interval mild superior endplate deformity which is relatively smooth bordered. Is is likely late subacute to chronic Multiple chronic right rib fractures are again demonstrated. No change cardiac and mediastinal silhouettes or angelina. Whey Department Operator technique today. Relatively mild peribronchial thickening at the right base. Slight atelectasis or scar at the left base. No failure pattern or pleural effusion. Granuloma left upper lobe is again present. XR/XR chest 2V IMPRESSION: 1. Peribronchial markings at the right base are without significant change. Slight atelectasis left base. 2. No pleural effusion or failure. Electronically authenticated by: GRACIELA REINOSO Date: 11/14/2023 15:27 Dictated By: Graciela Reinoso M.D. Signed By: 11/14/23 1530 DD/ 1527 TD/TT: Religion Instructor: Procedure Note Radiology, Radiologist, - 11/14/2023 [place] [address] XRay Report Signed Patient: MIKE OSEI LMR#: [id number] : 8Acct:[id number] Age/Sex: 73 / MADM Date: 11/14/23 Loc: RAD Attending Dr: Leigha Pedraza D.O. Ordering Physician: Leigha Pedraza D.O. Date of Service: 11/14/23 Procedure(s): XR chest 2V Accession Number(s): [id number] cc: Pool Peace M.D.; Leigha Pedraza D.O. The [place] [address] Patient Name: MIKE OSEI MRN: [facility]:[id number] date: 1950 Sex: M Assigned Patient Location: [facility] Current Patient Location: [facility] Accession/Order Number: [id number] Exam Date: 11/14/2023 15:05 Report Date: 11/14/2023 15:27 At the request of: LEIGHA PEDRAZA Procedure: XR chest 2V PA AND LATERAL CHEST; 11/14/2023 3:05 PM EST Clinical History:dyspnea R06.02 Comparison: Frontal exam 06/17/2023 in 2 view study 12/28/2021. Modest compression deformity at a mid to lower thoracic levels unchanged.In the upper thoracic region interval mild superior endplate deformity whichis relatively smooth bordered. Is is likely late subacute to chronic Multiple chronic right rib fractures are again demonstrated. No change cardiac and mediastinal silhouettes or angelina. Whey Department Operator technique today. Relatively mild peribronchial thickening at theright base. Slight atelectasis or scar at the left base. No failure pattern or pleural effusion. Granuloma left upper lobe is again present. XR/XR chest 2V IMPRESSION: 1. Peribronchial markings at the right base are without significantchange. Slight atelectasis left base. 2. No pleural effusion or failure. Electronically authenticated by: GRACIELA REINOSO Date: 11/14/2023 15:27 Dictated By: Graciela Reinoso M.D. Signed By:11/14/23 1530 DD/ 1527 TD/TT: Religion Instructor: us Generic External Data Provider [facility] Final Result documented in this encounter Visit Diagnoses Not on filedocumented in this encounter Care Teams Cellar Pumper Relationship Specialty Start Date End Date Pool Peace MD PCP - General Family Medicine 10/24/22 08/14/24 Pool Peace MD [address] [place] [phone] PCP - [facility] 11/24/23 02/21/68 Pool Paece MD [address] [place] [address] PCP - General Family Medicine 08/15/24 documented as of this encounter
--- OUTSIDE RECORDS SUMMARY | 2025-03-13 12:51 | XMS_ITS | Encounter Summary ---
Author Organization [facility] Address [address] [place] [address] Care Team Providers Care Direct Support Worker Name Role Phone Pool Peace MD Unavailable Pool Peace MD Primary Care Provider [phone] Encounter Details Date Type Department Care Team (Late st Contact Info) Description 09/26/2024 Clinisync Result Encounter [facility] External Department Unsolicited Provider, Generic External Data Social History Tobacco Use Types Packs/Day Years Used Date Smoking Tobacco: Former Cigarettes Smokeless Tobacco: Never Social Connection and Isolat ion Panel [NHANES] Answer Date Recorded In a typical week, how many times do you talk on the phone with family, friends, or neighbors? More than three times a week 02/08/2024 How often do you get togethe r with friends or relatives? Twice a week 02/08/2024 How often do you attend chur or shinto services? More than 4 times per year 02/08/2024 Do you belong to any clubs o r organizations such as religious groups, unions, fraternal or athletic groups, or [...] Recorded Patient Health Questionnaire-2 Score 0 08/15/2024 [facility] Occupat ional Health - Occupational Stress Questionnaire Answer Date Recorded [...] place to sleep or slept in a penitentiary (including now)? No 02/08/2024 Sex and Gender Information Value Date Recorded Sex Assigned at Not on file Legal Sex Male 9:35 PM EDT Gender Identity Not on file Sexual Orientation Not on file documented as of this encounter Plan of Treatment Upcoming Encounters Date Type Department Care Team (Late st Contact Info) Description 08/27/2025 11:00 AM EST Office Visit [facility] [address] [place] [phone] Pool Peace MD [address] [place] [address] documented as of this encounter Procedures Procedure Name Priority Date/Time Associated Diagnosis Comments CT LUNG SCREENING LOW DOSE 09/26/2024 7:33 AM EST documented in this encounter Results * CT LUNG SCREENING LOW DOSE (09/26/2024 7:33 AM EST) Anatomical Region Laterality Modality Other 09/26/2024 7:33 AM EST Narrative 09/26/2024 7:36 AM EST The [address] [address] [address] Scan Report Signed Patient: MIKE OSEI MR#: [id number] : 1950 Acct:[id number] Age/Sex: 74 / M ADM Date: 09/25/24 Loc: CT Attending Dr: Ranjit Pedraza D.O. Ordering Physician: Ranjit Pedraza D.O. Date of Service: 09/25/24 Procedure(s): CT lung screening low-dose Accession Number(s): [id number] cc: Pool Peace M.D. The [address] [address] Patient Name: IMKE OSEI MRN: [id number] date: 1950 Sex: M Assigned Patient Location: CT Current Patient Location: Accession/Order Number: [id number] Exam Date: 09/25/2024 09:21 Report Date: 09/26/2024 07:33 At the request of: RANJIT PEDRAZA Procedure: CT lung screening low-dose EXAMINATION: CT lung screening low-dose HISTORY: Lung cancer screening COMPARISON: 09/19/2023 TECHNIQUE: Axial, Coronal, and Sagittal images were created without the administration of IV contrast material. Dose reduction techniques were achieved by using automated exposure control and/or adjustment of mA and/or kV according to patient size and/or use of iterative reconstruction technique. FINDINGS: LUNGS: Table scattered calcified and noncalcified pulmonary nodules the largest noncalcified pulmonary nodule is identified in the medial basilar segment of the right lower lobe measuring 6.3 mm, axial image 99. Linear opacity in the right lung base, atelectasis is favored PLEURA: No mass, effusion, or pneumothorax. VASCULATURE: No abnormality. WINDY: No mass or pathologic adenopathy. MEDIASTINUM: No mass or pathologic adenopathy. CARDIAC: No enlargement or pericardial effusion CORONARY ARTERIES: Coronary calcifications are moderate. AORTA: No aortic aneurysm. Moderate calcific atherosclerosis CHEST WALL: No mass or axillary adenopathy BONES: No bone lesion or fracture. LIMITED ABDOMEN: Cholelithiasis. OTHER: Negative. CT/CT lung screening low-dose IMPRESSION: Stable scattered subcentimeter pulmonary nodules LUNG SCREENING: Lung-RADS Category 2- Benign Appearance or Behavior. Nodules with a very low likelihood of becoming a clinically active cancer due to size or lack of growth. 2. Continue annual screening with LDCT in 12 months. Electronically authenticated by: UMM SANDHU Date: 09/26/2024 07:33 Dictated By: Umm Sandhu M.D. Signed By: 09/26/2436 DD/ 2 TD/TT: Bookstore Manager: Procedure Note Radiology, Radiologist, - 09/26/2024 [place] [address] CT Scan Report Signed Patient: MIKE OSEI LMR#: [id number] : 8Acct:[id number] Age/Sex: 74 / MADM Date: 09/25/24 Loc: CT Attending Dr: Ranjit Pedraza D.O. Ordering Physician: Ranjit Pedraza D.O. Date of Service: 09/25/24 Procedure(s): CT lung screening low-dose Accession Number(s): [id number] cc: Pool Peace M.D. The [address] [address] Patient Name: MIKE OSEI MRN: [id number] date: 1950 Sex: M Assigned Patient Location: CT Current Patient Location: Accession/Order Number: [id number] Exam Date: 09/25/2024 09:21 Report Date: 09/26/2024 07:33 At the request of: RANJITTITI PEDRAZA Procedure: CT lung screening low-dose EXAMINATION: CT lung screening low-dose HISTORY: Lung cancer screening COMPARISON: 09/19/2023 TECHNIQUE: Axial, Coronal, and Sagittal images were created without the administration of IV contrast material. Dose reduction techniques were achieved by using automated exposure control and/or adjustment of mA and/or kV according to patient size and/or use of iterative reconstruction technique. FINDINGS: LUNGS: Table scattered calcified and noncalcified pulmonary nodules the largest noncalcified pulmonary nodule is identified in the medial basilar segmentof the right lower lobe measuring 6.3 mm, axial image 99. Linear opacity inthe right lung base, atelectasis is favored PLEURA: No mass, effusion, or pneumothorax. VASCULATURE: No abnormality. WINDY: No mass or pathologic adenopathy. MEDIASTINUM: No mass or pathologic adenopathy. CARDIAC: No enlargement or pericardial effusion CORONARY ARTERIES: Coronary calcifications are moderate. AORTA: No aortic aneurysm. Moderate calcific atherosclerosis CHEST WALL: No mass or axillary adenopathy BONES: No bone lesion or fracture. LIMITED ABDOMEN: Cholelithiasis. OTHER: Negative. CT/CT lung screening low-dose IMPRESSION: Stable scattered subcentimeter pulmonary nodules LUNG SCREENING: Lung-RADS Category 2- Benign Appearance or Behavior.Nodules with a very low likelihood of becoming a clinically active cancer due tosize or lack of growth. 2. Continue annual screening with LDCT in 12 months. Electronically authenticated by: UMM SANDHU Date: 09/26/2024 07:33 Dictated By: Umm Sandhu M.D. Signed By:09/26/2436 DD/ TD/TT: Bookstore Manager: us Generic External Data Provider [facility] Final Result documented in this encounter Visit Diagnoses Not on filedocumented in this encounter Additional Health Concerns Assessment Noted Time PHQ-9 Depression Total Score: 1 08/15/20 24 11:00 AM EDT documented as of this encounter Care Teams Direct Support Worker Relationship Specialty Start Date End Date Pool Peace MD [address] [place] [phone] PCP - [facility] 11/24/23 02/21/68 Pool Peace MD [address] [place] [address] PCP - General Family Medicine 08/15/24 documented as of this encounter
--- OUTSIDE RECORDS SUMMARY | 2025-03-13 12:51 | XMS_ITS | Encounter Summary ---
Author Organization [facility] Address [address] [place] [address] Care Team Providers Care Gaming Cage Cashier Name Role Phone Pool Peace MD Primary Care Provider [phone] Pool Peace MD Unavailable Pool Peace MD Primary Care Provider [phone] Encounter Details Date Type Department Care Team (Late st Contact Info) Description 01/12/2024 Clinisync Result Encounter [facility] External Department Unsolicited [...] 08/27/2025 11:00 AM EST Office Visit [facility] [address] [place] [address] Pool Peace MD [address] [place] [address] documented as of this encounter Procedures Procedure Name Priority Date/Time Associated Diagnosis Comments CA ECHO DOPPLER COMPLETE 01/12/2024 2:01 PM EDT documented in this encounter Results * CA ECHO DOPPLER COMPLETE (01/12/2024 2:01 PM EDT) Anatomical Region Laterality Modality Other 01/12/2024 2:01 PM EDT Narrative 01/12/2024 2:02 [place] [address] Cardiology Report Signed Patient: MIKE OSEI MR#: [id number] : 1950 Acct:[id number] Age/Sex: 73 / M ADM Date: 01/10/24 Loc: CARD Attending Dr: ARON ADNERSON Ordering Physician: ARON ANDERSON Date of Service: 01/10/24 Procedure(s): CA echo doppler complete Accession Number(s): [id number] cc: ARON ANDERSON ; Pool Peace M.D. Patient Name: MIKE OSEI MR#: [id number] : 1950 Exam Date: 01/10/2024 Ordering Doctor: DR ARON ANDERSON M.D. ECHOCARDIOGRAM REPORT PROCEDURE: CA ECHO DOPPLER COMPLETE INDICATIONS: Dyspnea COMPARISON: None. DESCRIPTION: COMPLETE ECHOCARDIOGRAM Real-time transthoracic echocardiography with 2D, M-mode, spectral and color flow Doppler performed. QUALITY: Technical quality was good. LEFT VENTRICLE: Normal chamber size. Normal left ventricular wall thickness. LV EF: Global left ventricular systolic function is normal. Calculated left ventricular ejection fraction is 62%. No significant wall motion abnormalities. DIASTOLIC: Grade II diastolic dysfunction. ATRIAL SEPTUM: Visually appears intact. LEFT ATRIUM: Moderate dilatation. RIGHT ATRIUM: Mild dilatation. RIGHT VENTRICLE: Normal chamber size. Normal right ventricular systolic function. TRICUSPID VALVE: Normal mobility and thickness. Mild regurgitation. Mild pulmonary hypertension. RVSP 35mmHg MITRAL VALVE: Normal mobility and thickness. No evidence of mitral valve stenosis. There is no mitral annular calcification. Trivial mitral regurgitation. AORTIC VALVE: Normal trileaflet appearance. Thickened aortic valve. Normal leaflet mobility. No evidence of aortic valve stenosis. No aortic regurgitation. AORTIC ROOT: Normal diameter and appearance. PULMONIC VALVE: Normal thickness and mobility. No stenosis. Trivial regurgitation. PERICARDIUM: Anterior free space; trivial effusion versus fat pad. IVC: Collapses with inspirations. Normal size. CONCLUSION: 1. Global left ventricular systolic function is normal; visually estimated ejection fraction is 60 to 65% 2. Normal right ventricular size and systolic function 3. Grade 2 diastolic dysfunction 4. Biatrial enlargement 5. Mild tricuspid regurgitation 6. Mildly elevated right ventricular systolic pressure; RVSP 35 mmHg 7. Anterior free space; trivial effusion versus fat pad Adult Echocardiography Procedure Report Left Ventricle LVEDD (3.7 - 5.6 cm): 4.67 cm LVESD (2.2 - 4.0 cm): 3.31 cm LVIVS thickness (0.6 - 1.2 cm): 1.07 cm LVPW thickness (0.5 - 1.0 cm): 0.96 cm e': 0.06 m/s E - e': 10.64 LVOT Max Gradient: 3.45 mm[Hg], 2.65 mm[Hg], 3.00 mm[Hg] LVOT Area (cm2): 0.87 m/s Peak Velocity (LVOT): 0.93 m/s, 0.81 m/s, 0.87 m/s Mean Velocity (LVOT): 0.53 m/s LVOT Diameter 2.01 cm Left Ventricular Ejection Fraction: 62.35 % Left Atrium LA Volume Index (2D A2C): 48.94 ml/m2 Left Atrium Systolic Dimension: 3.90 cm Mitral Valve MV E to A Ratio: 0.86 Mitral Valve A-Wave Peak Velocity: 0.80 m/s Mitral Valve E-Wave Peak Velocity: 0.69 m/s Right Ventricle RV Internal Diastolic Dimension: 3.83 cm Aorta AO Root Diam: 3.33 cm Ascending Ao Diam: 2.93 cm Aortic Valve AoV Area (Peak Matthew): 2.67 cm2, 2.85 cm2 AoV Area (VTI): 1.90 cm2, 2.60 cm2 Peak Velocity(Antegrade Flow): 1.03 m/s Peak Gradient(Antegrade Flow): 4.27 mm[Hg] Mean Velocity(Antegrade Flow): 0.71 m/s Mean Gradient(Antegrade Flow): 2.21 mm[Hg] Velocity Time Integral: 29.01 cm Tricuspid Valve Peak Velocity (Regurgitant Flow): 2.52 m/s, 2.66 m/s, 2.84 m/s Pulmonic Valve Mean Gradient: 1.44 mm[Hg] Mean Velocity: 0.56 m/s Peak Velocity: 0.80 m/s, 0.81 m/s Peak Gradient: 2.53 mm[Hg], 2.63 mm[Hg] Right Atrium Right Atrium Systolic Pressure: 77.98 ml, 77.98 ml Dictated by: Evelyne Miranda M.D. on 01/12/2024 at 13:57 Approved by: Evelyne Miranda M.D. on 01/12/2024 at 14:01 Dictated By: Evelyne Miranda M.D. Signed By: 01/12/24 1402 DD/ 1401 TD/TT: Bed Operator: Procedure Note Radiology, Radiologist, MD - 01/12/2024 [place] [address] Cardiology Report Signed Patient: MIKE OSEI LMR#: [id number] : 1950cct:[id number] Age/Sex: 73 / MADM Date: 01/10/24 Loc: CARD Attending Dr: ARON ANDERSON Ordering Physician: ARON ANDERSON Date of Service: 01/10/24 Procedure(s): CA echo doppler complete Accession Number(s): [id number] cc: ARON ANDERSON ; Pool Peace M.D. Patient Name: MIKE OSEI MR#: [id number] : 1950 Exam Date: 01/10/2024 Ordering Doctor: DR ARON ANDERSON M.D. ECHOCARDIOGRAM REPORT PROCEDURE: CA ECHO DOPPLER COMPLETE INDICATIONS: Dyspnea COMPARISON: None. DESCRIPTION: COMPLETE ECHOCARDIOGRAM Real-time transthoracic echocardiography with 2D, M-mode, spectral and color flow Dopplerperformed. QUALITY: Technical quality was good. LEFT VENTRICLE: Normal chamber size. Normal left ventricular wall thickness. LV EF: Global left ventricular systolic function is normal. Calculated left ventricular ejection fraction is 62%. No significant wall motion abnormalities. DIASTOLIC: Grade II diastolic dysfunction. ATRIAL SEPTUM: Visually appears intact. LEFT ATRIUM: Moderate dilatation. RIGHT ATRIUM: Mild dilatation. RIGHT VENTRICLE: Normal chamber size. Normal right ventricularsystolic function. TRICUSPID VALVE: Normal mobility and thickness. Mild regurgitation.Mild pulmonary hypertension. RVSP 35mmHg MITRAL VALVE: Normal mobility and thickness. No evidence of mitralvalve stenosis. There is no mitral annular calcification. Trivial mitral regurgitation. AORTIC VALVE: Normal trileaflet appearance. Thickened aortic valve. Normal leaflet mobility. No evidence of aortic valve stenosis. No aortic regurgitation. AORTIC ROOT: Normal diameter and appearance. PULMONIC VALVE: Normal thickness and mobility. No stenosis. Trivial regurgitation. PERICARDIUM: Anterior free space; trivial effusion versus fat pad. IVC: Collapses with inspirations. Normal size. CONCLUSION: 1. Global left ventricular systolic function is normal; visually estimated ejection fraction is 60 to 65% 2. Normal right ventricular size and systolic function 3. Grade 2 diastolic dysfunction 4. Biatrial enlargement 5. Mild tricuspid regurgitation 6. Mildly elevated right ventricular systolic pressure; RVSP 35 mmHg 7. Anterior free space; trivial effusion versus fat pad Adult Echocardiography Procedure Report Left Ventricle LVEDD (3.7 - 5.6 cm): 4.67 cm LVESD (2.2 - 4.0 cm): 3.31 cm LVIVS thickness (0.6 - 1.2 cm): 1.07 cm LVPW thickness (0.5 - 1.0 cm): 0.96 cm e': 0.06 m/s E - e': 10.64 LVOT Max Gradient: 3.45 mm[Hg], 2.65 mm[Hg], 3.00 mm[Hg] LVOT Area (cm2): 0.87 m/s Peak Velocity (LVOT): 0.93 m/s, 0.81 m/s, 0.87 m/s Mean Velocity (LVOT): 0.53 m/s LVOT Diameter 2.01 cm Left Ventricular Ejection Fraction: 62.35 % Left Atrium LA Volume Index (2D A2C): 48.94 ml/m2 Left Atrium Systolic Dimension: 3.90 cm Mitral Valve MV E to A Ratio: 0.86 Mitral Valve A-Wave Peak Velocity: 0.80 m/s Mitral Valve E-Wave Peak Velocity: 0.69 m/s Right Ventricle RV Internal Diastolic Dimension: 3.83 cm Aorta AO Root Diam: 3.33 cm Ascending Ao Diam: 2.93 cm Aortic Valve AoV Area (Peak Matthew): 2.67 cm2, 2.85 cm2 AoV Area (VTI): 1.90 cm2, 2.60 cm2 Peak Velocity(Antegrade Flow): 1.03 m/s Peak Gradient(Antegrade Flow): 4.27 mm[Hg] Mean Velocity(Antegrade Flow): 0.71 m/s Mean Gradient(Antegrade Flow): 2.21 mm[Hg] Velocity Time Integral: 29.01 cm Tricuspid Valve Peak Velocity (Regurgitant Flow): 2.52 m/s, 2.66 m/s, 2.84 m/s Pulmonic Valve Mean Gradient: 1.44 mm[Hg] Mean Velocity: 0.56 m/s Peak Velocity: 0.80 m/s, 0.81 m/s Peak Gradient: 2.53 mm[Hg], 2.63 mm[Hg] Right Atrium Right Atrium Systolic Pressure: 77.98 ml, 77.98 ml Dictated by: Evelyne Miranda M.D. on 01/12/2024 at 13:57 Approved by: Evelyne Miranda M.D. on 01/12/2024 at 14:01 Dictated By: Evelyne Miranda M.D. Signed By:01/12/24 1402 DD/ 1401 TD/TT: Bed Operator: Generic External Data Provider [facility] Final Result documented in this encounter Visit Diagnoses Not on filedocumented in this encounter Care Teams Gaming Cage Cashier Relationship Specialty Start Date End Date Pool Peace MD PCP - General Family Medicine 10/24/22 08/14/24 Pool Peace MD [address] [place] [phone] PCP - [facility] 11/24/23 02/21/68 Pool Peace MD [address] [place] [phone] PCP - General Family Medicine 08/15/24 documented as of this encounter
--- OUTSIDE RECORDS SUMMARY | 2025-03-13 12:52 | XMS_ITS | Clinical Summary ---
Author Organization [facility] Address [address] [place] [address] Care Team Providers Care Log Loader Name Role Phone Pool Peace MD Primary Care Provider + Allergies Active Allergy Reactions Criticality Noted Date Comments Penicillins 03/12/2024 Immunizations Immunization Administration Dates Next Due TDaP, ADACEL (age 10y-64y), BOOSTRIX (age 10y+), IM, 0.5mL 03/12/2024 Social History Tobacco Use Types Packs/Day Years Used Date Smoking Tobacco: Former Cigarettes Smokeless Tobacco: Never Tobacco Cessation:Counseling Given: Not Answered Alcohol Use Standard Drinks/Week Comments Yes 0 (1 standard drink = 0.6 oz pur e alcohol) occasionally Sex and Gender Information Value Date Recorded Sex Assigned at Not on file Legal Sex Male 9:12 PM EDT Gender Identity Not on file Sexual Orientation Not on file Last Filed Vital Signs Vital Sign Reading Time Taken Comments Blood Pressure 133/67 03/12/2024 11:26 PM EDT Pulse 76 03/12/2024 9:13 PM EDT Temperature 36.5 C (97.7 F) 03/12/2024 9:16 PM EDT Respiratory Rate 18 03/12/2024 9:32 PM EDT Oxygen Saturation 99% 03/12/2024 11:26 PM EDT Inhaled Oxygen Concentration - - Weight 96.2 kg (212 lb) 03/12/2024 9:19 PM EDT Height 180.3 cm (5' 11 ) 03/12/2024 11:08 PM EDT Body Mass Index 29.57 03/12/2024 9:19 PM EDT Plan of Treatment Health Maintenance Due Date Last Done Comments Depression Screen 1960 Hepatitis C screen 01/26/1966 Shingles vaccine (1 of 2) 01/26/1998 Pneumococcal 50+ years Vacci ne (2 of 2 - PCV) 05/05/2021 05/05/2020 Respiratory Syncytial Virus (RSV) or age 60 yrs+ (1 - 1-dose 75+ series) 01/26/2023 COVID-19 Vaccine (1 - 2023-2 5 season) 2024 Annual Wellness Visit (Medic are Advantage) 10/24/2024 Flu vaccine (Season Ended) 2025 DTaP/Tdap/Td vaccine (2 - Td or Tdap) 03/12/2034 03/12/2024 Hepatitis A vaccine Aged Out No longe r eligible based on patient's age to complete this topic Hepatitis B vaccine Aged Out No longe r eligible based on patient's age to complete this topic Hib vaccine Aged Out No longer eligi ble based on patient's age to complete this topic Meningococcal (ACWY) vaccine Aged Out No longer eligible based on patient's age to complete this topic Meningococcal B vaccine Aged Out No l onger eligible based on patient's age to complete this topic Polio vaccine Aged Out No longer elig ible based on patient's age to complete this topic Insurance [facility] Care Teams Log Loader Relationship Specialty Start Date End Date Pool Peace MD [address] [place] [address] PCP - General Family Medicine 03/12/24
--- OUTSIDE RECORDS SUMMARY | 2025-03-13 12:52 | XMS_ITS | Encounter Summary ---
Author Organization [facility] Address [address] [place] [address] Care Team Providers Care Creative Writing English Professor Name Role Phone Pool Peace MD Primary Care Provider [phone] Reason for Visit * Reason Comments Med Refill Encounter Details Date Type Department Care Team (Late st Contact Info) Description 03/11/2023 Refill [facility] [address] [place] [phone] Dev Iniguez MD [address] [facility] [address] [place] [phone] Borderline hyperlipidemia Social History Tobacco Use Types Packs/Day Years Used Date Smoking Tobacco: Former Cigarettes Smokeless Tobacco: Never Alcohol Use Standard Drinks/Week Comments Yes 0 (1 standard drink = 0.6 oz pur e alcohol) moderate Sex and Gender Information Value Date Recorded Sex Assigned at Not on file Gender Identity Not on file Sexual Orientation Not on file documented as of this encounter Plan of Treatment Not on file documented as of this encounter Visit Diagnoses Diagnosis Borderline hyperlipidemia documented in this encounter Care Teams Creative Writing English Professor Relationship Specialty Start Date End Date Pool Peace MD [address] [place] [address] PCP - General 12/13/22 documented as of this encounter
--- OUTSIDE RECORDS SUMMARY | 2025-03-13 12:52 | XMS_ITS | Encounter Summary ---
Author Organization [facility] Address [address] [place] [address] Care Team Providers Care Fur Blowing Machine Operator Name Role Phone Pool Peace MD Primary Care Provider [phone] Reason for Visit * Reason Comments Med Refill Encounter Details Date Type Department Care Team (Late st Contact Info) Description 10/29/2022 Refill [facility] Cardiology [address] [place] [phone] Pricila oSto, MACHINE OPERATOR HOP PICKER [address] [place] [phone] Essential (primary) hypertension Social History Tobacco Use Types Packs/Day Years Used Date Smoking Tobacco: Never Assessed Sex and Gender Information Value Date Recorded Sex Assigned at Not on file Gender Identity Not on file Sexual Orientation Not on file documented as of this encounter Plan of Treatment Not on file documented as of this encounter Visit Diagnoses Diagnosis Essential (primary) hypertension Unspecified essential hypertension documented in this encounter Care Teams Fur Blowing Machine Operator Relationship Specialty Start Date End Date Pool Peace MD [address] [place] [address] PCP - General 12/13/22 documented as of this encounter
--- OUTSIDE RECORDS SUMMARY | 2025-03-13 12:52 | XMS_ITS | Clinical Summary ---
Author Organization [facility] Address [address] [place] [address] Care Team Providers Care Metal Weather Stripper Name Role Phone Pool Peace MD Primary Care Provider [phone] Allergies Active Allergy Reactions Criticality Noted Date Comments Morphine Nausea And Vomiting 07/13/2024 Penicillins Anaphylaxis,Angioede ma,Hives,Itching,R kamila High 10/24/2006 Medications Medication Sig Dispensed Refills Start Date End Date Status fluticasone-umeclidin- vilanter 100-62.5-25 mcg blister with device Inhale 1 puff in the morning. Active losartan (Cozaar) 100 mg tablet Take 100 mg by mouth in the morning. Active hydroCHLOROthiazide (HYDRODiuril) 25 mg tablet Take 25 mg by mouth in the morning. Active atorvastatin (Lipitor) 80 mg tabletIndications:Bord maximiliano hyperlipidemia Take 1 tablet (80 mg) by mouth in the morning. 90 tablet 3 06/05/2024 06/05/2025 Active amLODIPine (Norvasc) 10 mg tabletIndications:Prim erma hypertension TAKE 1 TABLET BY MOUTH EVERY DAY IN THE MORNING 90 tablet 3 12/06/2024 Active metoprolol succinate XL (Toprol-XL) 50 mg 24 hr tabletIndications:Esse ntial (primary) hypertension TAKE 1 TABLET BY MOUTH EVERY DAY IN THE MORNING 90 tablet 3 12/06/2024 Active clopidogrel (Plavix) 75 mg tabletIndications:Joshua nary atherosclerosis due to calcified coronary lesion (CODE) TAKE 1 TABLET (75 MG) BY MOUTH IN THE MORNING 90 tablet 3 12/19/2024 12/19/2025 Active Active Problems Problem Noted Date Diagnosed Date Mixed hyperlipidemia 12/15/2022 Assessment & Plan (07/13/2024 10:41 AM EDT): Lipid abnormalities are unchanged. Follow-up with PCP for annual blood testing Continue atorvastatin 80 mg daily and reviewed his lipid profile is well- controlled and liver function was normal Pharmacotherapy as ordered. Lipids will be reassessed in 1 year. 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 Remained stable no concerning symptoms Continue Plavix, Toprol and Lipitor Currently cholesterol levels are well-controlled and liver functions normal Continue current treatment regimen. Regular aerobic exercise. Continue current medications. Cardiac status will be reassessed in 1 year. Hypertensive disorder 10/04/2019 Assessment & Plan (07/13/2024 10:41 AM EDT): Hypertension is unchanged. Continue Norvasc, losartan and Toprol Continue current treatment regimen. Continue current medications. Blood pressure will be reassessed at the next regular appointment. Peripheral vascular disease 10/04/2019 Assessment & Plan (07/13/2024 10:42 AM EDT): Reviewed ABIs with patient and they are normal no concerns for significant arterial stenosis Continue Lipitor, and regular exercise Encounters Date Type Department Care Team Description 12/19/2024 [facility] [address] [place] [phone] Dev Iniguez MD Coronary atherosclerosis due to calcified coronary lesion (CODE) from Last 3 Months Family History Medical History Relation Name Comments Cancer Brother Cancer Mother Diabetes Paternal Grandmother Relation Name Status Comments Brother Mother Paternal Grandmother Social History Tobacco Use Types Packs/Day Years Used Date Smoking Tobacco: Former Cigarettes Smokeless Tobacco: Never Tobacco Cessation:Counseling Given: Not Answered Alcohol Use Standard Drinks/Week Comments Yes 0 (1 standard drink = 0.6 oz pur e alcohol) moderate [place] Safety & Environment Answer Date Rec orded Fear of Current or Ex-Partner Not on file Emotionally Abused Not on file 12/15/2023 Physically Abused Not on file 12/15/2023 Sexually Abused Not on file 12/15/2023 Physically or Sexually Abused Not on file Sex and Gender Information Value Date Recorded Sex Assigned at Not on file Gender Identity Not on file Sexual Orientation Not on file Last Filed Vital Signs Vital Sign Reading Time Taken Comments Blood Pressure 135/74 07/13/2024 10:16 AM EDT Pulse 61 07/13/2024 10:16 AM EDT Temperature 36.5 C (97.7 F) 12/18/2019 2:16 PM EST Respiratory Rate - - Oxygen Saturation 93% 07/13/2024 10:16 AM EDT Inhaled Oxygen Concentration - - Weight 96.2 kg (212 lb) 07/13/2024 10:16 AM EDT Height 177.8 cm (5' 10 ) 07/13/2024 10:16 AM EDT Body Mass Index 30.42 07/13/2024 10:16 AM EDT Plan of Treatment Health Maintenance Due Date Last Done Comments Medicare Annual Wellness (AWV) 1950 Depression Screening 1960 Zoster Vaccines (1 of 2) 01/26/1998 Fall Risk Screening 01/26/2013 Pneumococcal Vaccine: 65+ Years (2 of 2 - PCV) 05/05/2021 05/05/2020 COVID-19 Vaccine ( season) 2024 05/16/2022, 09/15/2021, 01/22/2021, Additional history exists Adult Tetanus 03/12/2034 03/12/2024 Influenza Vaccine Completed 08/15/2024, 09/15/2021 HIB Vaccines Aged Out No longer eligi ble based on patient's age to complete this topic HPV Vaccines Aged Out No longer eligi ble based on patient's age to complete this topic IPV Vaccines Aged Out No longer eligi ble based on patient's age to complete this topic Meningococcal B Vaccine Aged Out No l onger eligible based on patient's age to complete this topic Meningococcal Vaccine Aged Out No negro nicola eligible based on patient's age to complete this topic Rotavirus Vaccines Aged Out No longer eligible based on patient's age to complete this topic Care Teams Metal Weather Stripper Relationship Specialty Start Date End Date Pool Peace MD [address] [place], [place] [phone] PCP - General 12/13/22
--- OUTSIDE RECORDS SUMMARY | 2025-03-13 12:52 | XMS_ITS | Encounter Summary ---
Author Organization [facility] Address [address] [place] [address] Care Team Providers Care Airport Planner Name Role Phone Pool Peace MD Primary Care Provider [phone] Reason for Visit * Reason Comments Med Refill Encounter Details Date Type Department Care Team (Late st Contact Info) Description 03/23/2024 Refill [facility] [address] [place] [phone] Dev Iniguez MD [address] [facility] [place] [address] Borderline hyperlipidemia Social History Tobacco Use Types [...] on file documented as of this encounter Miscellaneous Notes * Telephone Encounter - Crista Marquis MA - 03/23/2024 9:30 AM EDT Approving, but needs appt for additional refills. documented in this encounter Plan of Treatment Not on file documented as of this encounter Visit Diagnoses Diagnosis Borderline hyperlipidemia documented in this encounter Care Teams Airport Planner Relationship Specialty Start Date End Date Pool Peace MD [address] [place] [address] PCP - General 12/13/22 documented as of this encounter
--- OUTSIDE RECORDS SUMMARY | 2025-03-13 12:52 | XMS_ITS | Encounter Summary ---
Author Organization [facility] [id number] [address] [place] [address] Care Team Providers Care Artist Model Name Role Phone Pool Peace MD Primary Care Provider [phone] Reason for Visit * Reason Comments Med Refill Encounter Details Date Type Department Care Team (Late st Contact Info) Description 08/10/2017 Refill [facility] [address] [place] [address] [place] [phone] Nir Simpson, DO [address] [place] [address] Social History Tobacco Use Types Packs/Day Years Used Date Smoking Tobacco: Former Cigarettes Q uit: 12/10/2016 Alcohol Use Standard Drinks/Week Comments Yes 0 (1 standard drink = 0.6 oz pur e alcohol) Socially Sex and Gender Information Value Date Recorded Sex Assigned at Male 03/30/2020 9:41 AM EDT Legal Sex Male 11:33 AM EDT Gender Identity Male 03/30/2020 9:41 AM EDT Sexual Orientation Straight 03/30/2020 9: 41 AM EDT documented as of this encounter Plan of Treatment Not on file documented as of this encounter Visit Diagnoses Not on filedocumented in this encounter Additional Health Concerns Infection Onset Date Last Indicated Resolved Time COVID-19 Rule-Out 05/02/2020 05/02/2020 05/03/2020 9:49 PM EDT COVID-19 Rule-Out 08/18/2020 08/18/2020 08/18/2020 6:14 PM EDT Assessment Noted Time PHQ-9 Depression Total Score: 0 03/25/20 17 12:00 PM EDT documented as of this encounter Care Teams Artist Model Relationship Specialty Start Date End Date Pool Peace MD PCP - General 09/16/17 documented as of this encounter
--- OUTSIDE RECORDS SUMMARY | 2025-03-13 12:52 | XMS_ITS | Referral Summary ---
Author Organization [facility] Address [address] [place] [address] Care Team Providers Care Alumni Relations Manager Name Role Phone Pool Peace MD Primary Care Provider [phone] Encounters Date Type Department Care Team Description 12/19/2024 Refill [facility] [address] [place] [phone] Dev Iniguez MD Coronary atherosclerosis due to calcified coronary lesion (CODE) from Last 3 Months Allergies Active Allergy Reactions Criticality Noted Date [...] 12/06/2024 Active clopidogrel (Plavix) 75 mg tabletIndications:Joshua narisabel atherosclerosis due to calcified coronary lesion (CODE) [...] arterial stenosis Continue Lipitor, and regular exercise Social History Tobacco Use Types Packs/Day Years [...] 07/13/2024 10:16 AM EDT Plan of Treatment Not on file Care Teams Alumni Relations Manager Relationship Specialty Start Date End Date Pool Peace MD [address] [place] [address] PCP - General 12/13/22
--- OUTSIDE RECORDS SUMMARY | 2025-03-13 12:52 | XMS_ITS | Encounter Summary ---
Author Organization [facility] Address [address] [place] [address] Care Team Providers Care Playground Official Name Role Phone Pool Peace MD Unavailable Pool Peace MD Primary Care Provider [phone] Encounter Details Date Type Department Care Team (Late st Contact Info) Description 02/13/2025 Results Follow-Up [facility] [address] [place] [phone] Pool Peace MD [address] [place] [address] Social History Tobacco Use Types Packs/Day Years [...] 02/08/2024 How often do you attend chur ch or orthodox services? More than 4 times per year 02/08/2024 Do you belong to any clubs o r organizations such as islam groups, unions, fraternal [...] Recorded Patient Health Questionnaire-2 Score 0 08/15/2024 [facility] [place] of Occupat ional Health - Occupational Stress [...] place to sleep or slept in a halfway (including now)? No 02/08/2024 Sex and Gender Information Value Date Recorded Sex Assigned at Not on file Legal Sex Male 9:35 PM EDT Gender Identity Not on file Sexual Orientation Not on file documented as of this encounter Plan of Treatment Upcoming Encounters Date Type Department Care Team (Late st Contact Info) Description 08/27/2025 11:00 AM EST Office Visit [facility] [address] [place] [address] Pool Peace MD [address] [place] [phone] documented as of this encounter Visit Diagnoses Not on filedocumented in this encounter Additional Health Concerns Assessment Noted Time PHQ-9 Depression Total Score: 1 08/15/20 11:00 AM EDT documented as of this encounter Care Teams Playground Official Relationship Specialty Start Date End Date Pool Peace MD [address] [place] [phone] PCP - [facility] 11/24/23 02/21/68 Pool Peace MD [address] [place] [phone] PCP - General Family Medicine 08/15/24 documented as of this encounter
--- OUTSIDE RECORDS SUMMARY | 2025-03-13 12:52 | XMS_ITS | Encounter Summary ---
Author Organization [facility] [place] [facility] Address [address] [place] [address] Care Team Providers Care Underbaster Name Role Phone Pool Peace MD Primary Care Provider [phone] Reason for Visit * Reason Comments Med Refill Encounter Details Date Type Department Care Team (Late st Contact Info) Description 12/10/[address] [facility] [address] [place] [phone] Dev Iniguez MD [address] [facility] [place] [address] Borderline hyperlipidemia (Primary Dx) Social History Tobacco Use Types Packs/Day Years Used Date Smoking Tobacco: Never Assessed Sex and Gender Information Value Date Recorded Sex Assigned at Not on file Gender Identity Not on file Sexual Orientation Not on file documented as of this encounter Miscellaneous Notes * Telephone Encounter - Mandy Phan MA - 12/10/2022 1:35 PM EST Approving, but needs appt for additional refills. documented in this encounter Plan of Treatment Not on file documented as of this encounter Visit Diagnoses Diagnosis Borderline hyperlipidemia- Primary documented in this encounter Care Teams Underbaster Relationship Specialty Start Date End Date Pool Peace MD [address] [place] [address] PCP - General 12/13/22 documented as of this encounter
--- OUTSIDE RECORDS SUMMARY | 2025-03-13 12:52 | XMS_ITS | Patient Health Record ---
Author Organization [facility] Address [address] [place] [address] Care Team Providers Care Construction Director Name Role Phone Pool Peace Primary Care Provider Chas Boothe Unavailable [phone] Salina Jackson Unavailable [phone] Reason For Referral No Information Problems Problem Type SNOMED Code ICD Code Onset Dates Problem Status W/U Status Risk Notes Problem [id number] Closed fracture of distal end of right fibula with routine healing, unspecified fracture morphology, subsequent encounter (S82.831D) Active confirmed Encounters Encounter Location Date Provider Diagnosis [facility] [facility] [address] [place] [address] 02/18/2025 Chas Arenas Closed fracture of distal end of right fibula with routine healing, unspecified fracture morphology, subsequent encounter S82.831D [facility] [facility] [address] [place] [phone] 12/25/2024 Chas Arenas Closed fracture of distal end of right fibula, unspecified fracture morphology, initial encounter S82.831A [facility] [facility] [address] [facility] [place] [address] 12/31/2024 Salina Jackson Closed fracture of distal end of right fibula with routine healing, unspecified fracture morphology, subsequent encounter S82.831D [facility] [facility] [address] [facility] [place] [address] 01/14/2025 Chas Arenas Closed fracture of distal end of right fibula with routine healing, unspecified fracture morphology, subsequent encounter S82.831D Assessments Encounter Date Diagnosis (ICD Code) Assessment Notes Treatment Notes Treatment Clinical Notes Section Notes 12/25/2024 Closed fracture of distal end of right fibula, unspecified fracture morphology, initial encounter (ICD-10 - S82.831A) Right distal fibular fracture 12/31/2024 Closed fracture of distal end of right fibula with routine healing, unspecified fracture morphology, subsequent encounter (ICD-10 - S82.831D) 01/14/2025 Closed fracture of distal end of right fibula with routine healing, unspecified fracture morphology, subsequent encounter (ICD-10 - S82.831D) Right distal fibula fracture 02/18/2025 Closed fracture of distal end of [...] likely final x-rays. Right distal fibula fracture 12/25/2024 Other I had a discussion with Mike regarding his right ankle fracture. Overall appears to be stable on x-rays today. Do recommend nonoperative treatment with current radiographs. Weightbearing as tolerated. Will see him back on Tuesday with repeat x-rays to monitor for displacement. Right distal fibular fracture 12/31/2024 Other Patient is doin g well weightbearing as tolerated in a tall cam walking boot. Patient wishes to continue with nonoperative management. He will remain in the boot weightbearing as tolerated we will see him back in 2 weeks to repeat x-rays and reassess his progress. 01/14/2025 Other I had a discussion today with Mike regarding his right distal fibula fracture. Overall appears stable. May continue weightbearing as tolerated. Will see him back in the office in 1 month with repeat x-rays. Right distal fibula fracture Plan Of Treatment Pending Test Test Name Order Date SCC- ANKLE 3 VIEW RIGHT [id number] 02/18/2025 SCC- ANKLE 3 VIEW RIGHT [id number] 01/14/2025 Ankle, right 3v - [id number] 12/31/2024 Ankle, right 3v - [id number] 12/25/2024 Stress view manual stress by physician 7 7518 12/25/2024 Next Appt Details Provider Name:Chas cobb, 05/06/2025 01:30:00 PM, [address] [facility], [address], [place], [address], Insurance Providers Payer Name Payer Address Payer Phone Subscriber Number Group Number Insured Name Patient Relationship to Insured Coverage Start Date Coverage End Date [employer] A[employer] MEDICARE [address] [address] [place] [address] [id number] MIKE MARTINEZ Self - patient is the insured 5
--- OUTSIDE RECORDS SUMMARY | 2025-03-13 12:52 | XMS_ITS | Encounter Summary ---
Author Organization [facility] Address [address] [place] [address] Care Team Providers Care Artist'S Manager Name Role Phone Pool Peace MD Primary Care Provider [phone] Reason for Visit * Reason Comments Med Refill Encounter Details Date Type Department Care Team (Late st Contact Info) Description 11/20/2022 Refill [facility] Clinic [address] [place] [phone] Dev Iniguez MD [address] [facility] [place] [phone] Mixed hyperlipidemia Social History Tobacco Use Types Packs/Day Years Used Date Smoking Tobacco: Never Assessed Sex and Gender Information Value Date Recorded Sex Assigned at Not on file Gender Identity Not on file Sexual Orientation Not on file documented as of this encounter Plan of Treatment Not on file documented as of this encounter Visit Diagnoses Diagnosis Mixed hyperlipidemia documented in this encounter Care Teams Artist'S Manager Relationship Specialty Start Date End Date Pool Peace MD [address] [place] [address] PCP - General 12/13/22 documented as of this encounter
--- OUTSIDE RECORDS SUMMARY | 2025-03-13 12:52 | XMS_ITS | Encounter Summary ---
Author Organization [facility] Address [address] [place] [address] Care Team Providers Care Certified Caregiver Name Role Phone Pool Peace MD Unavailable Pool Peace MD Primary Care Provider [phone] Encounter Details Date Type Department Care Team (Late st Contact Info) Description 03/08/2025 Clinisync Result Encounter [facility] External [...] How often do you attend chur or scientology services? More than 4 times per year 02/08/2024 Do you belong to any clubs o r organizations such as rastafari groups, unions, fraternal [...] Questionnaire-2 Score 0 08/15/2024 [facility] [place] of Occupat ional Health - Occupational Stress [...] place to sleep or slept in a prison (including now)? No 02/08/2024 Sex and Gender [...] Visit [facility]IC[facility] [address] [place] [address] Pool Peace MD [address] [place] [address] documented as of this encounter Procedures Procedure Name Priority Date/Time Associated Diagnosis Comments MR LUMBAR SPINE WO CON 03/08/2025 3:00 PM EDT documented in this encounter Results * MR LUMBAR SPINE WO CON (03/08/2025 3:00 PM EDT) Anatomical Region Laterality Modality Other 03/08/2025 3:00 PM EDT Narrative 03/08/2025 3:02 [place] [address] Magnetic Resonance Report Signed Patient: MIKE OSEI MR#: [id number] : 1950 Acct:[id number] Age/Sex: 75 / M ADM Date: 03/08/25 Loc: MRI Attending Dr: Maricarmen Shaw NP Ordering Physician: Maricarmen Shaw NP Date of Service: 03/08/25 Procedure(s): MR lumbar spine wo con Accession Number(s): [id number] cc: Maricarmen Shaw NP; Pool Peace M.D. The [address] [id number] Patient Name: MIKE OSEI MRN: [id number] date: 1950 Sex: M Assigned Patient Location: MRI Current Patient Location: MRI Accession/Order Number: [id number] Exam Date: 03/08/2025 14:55 Report Date: 03/08/2025 [...] Lentz M.D. 03/08/2025 3:00 PM Dictation Location: [place] [address] Electronically authenticated by: [id number] Y Date: 03/08/2025 15:00 Dictated By: Sanket Lentz M.D. Signed By: 03/08/25 1502 DD/ 1500 TD/TT: Auto Collision Repair Instructor: Procedure Note Radiology, Radiologist, MD - 03/08/2025 [place] [address] Magnetic Resonance Report Signed Patient: MIKE OSEI LMR#: [id number] : 1950cct:[id number] Age/Sex: 75 / MADM Date: 03/08/25 Loc: MRI Attending Dr: Maricarmen Shaw NP Ordering Physician: Maricarmen Shaw NP Date of Service: 03/08/25 Procedure(s): MR lumbar spine wo con Accession Number(s): [id number] cc: Maricarmen Shaw NP; Pool Peace M.D. [facility] [place] [address] Patient Name: MIKE OSEI MRN: [id number] date: 1950 Sex: M Assigned Patient Location: MRI Current Patient Location: MRI Accession/Order Number: [id number] Exam Date: 03/08/2025 14:55 Report Date: 03/08/2025 [...] Lentz M.D. 03/08/2025 3:00 PM Dictation Location: [place] [address] Electronically authenticated by: [id number] Y Date: :00 Dictated By: Sanket Lentz M.D. Signed By:03/08/25 1502 DD/ 1500 TD/TT: Auto Collision Repair Instructor: Generic External Data Provider [facility] Final Result documented in this encounter Visit Diagnoses Not on filedocumented in this encounter Additional Health Concerns Assessment Noted Time PHQ-9 Depression Total Score: 1 08/15/20 24 11:00 AM EDT documented as of this encounter Care Teams Certified Caregiver Relationship Specialty Start Date End Date Pool Peace MD [address] [place] [address] PCP - [facility] 11/24/23 02/21/68 Pool Peace MD [address] [place] [address] PCP - General Family Medicine 08/15/24 documented as of this encounter
--- OUTSIDE RECORDS SUMMARY | 2025-03-13 12:52 | XMS_ITS | Clinical Summary ---
Author Organization [facility] Address [id number] [address] [place] [address] Care Team Providers Care Cultured Marble Products Maker Name Role Phone Pool Peace MD Primary Care Provider [phone] Allergies Active Allergy Reactions Criticality Noted Date Comments Penicillins Anaphylaxis,Hives,Rash,Angioedema High 0 10/24/2006 Medications multivitamin (THERAGRAN) tablet Take 1 tablet by mouth in the morning. Active metoprolol succinate XL (TOPROL-XL) 25 mg 24 hr tablet Take 1 tablet (25 mg total) by mouth in the morning. Active fluticasone-umec lidin-vilanter (TRELEGY ELLIPTA) 100-62.5-25 mcg blister with device Inhale 1 puff in the morning. Active cholecalciferol, vitamin D3, 5,000 units tablet Take 1 tablet (5,000 Units total) by mouth 3 (three) times a week. Active losartan (COZAAR) 100 mg tablet Take 1 tablet (100 mg total) by mouth in the morning. Active hydroCHLOROthiaz betito (HYDRODIURIL) 25 mg tablet Take 1 tablet (25 mg total) by mouth daily. Active atorvastatin (LIPITOR) 80 mg tablet Take 1 tablet (80 mg total) by mouth in the morning. Active clopidogreL (PLAVIX) 75 mg tablet Take 1 tablet (75 mg total) by mouth in the morning. Active ascorbic acid (VITAMIN C ORAL) Take 1 tablet by mouth in the morning. Active ZINC ORAL Take 50 mg by mouth in the morning. Active MAGNESIUM ORAL Take 250 mg by mouth in the morning. Active coenzyme Q10 200 mg capsule Take 200 mg by mouth in the morning. Active Active Problems Problem Noted Date Diagnosed Date S/P nasal septoplasty 08/14/2020 H/O nasal septoplasty 08/04/2020 Bilateral hearing loss 04/01/2020 Dysfunction of both eustachian tubes 04/01/2020 Deviated septum 04/01/2020 Family History Medical History Relation Name Comments Cancer Brother Alcohol abuse Father Lexa Diabetes Father Lexa Alcohol abuse Mother latasha Breast cancer Mother latasha Cancer Mother latasha Diabetes Mother latasha Cancer Sister Relation Name Status Comments Brother Alive Father Lexa Mother latasha Sister Alive Social History Tobacco Use Types Packs/Day Years Used Date Smoking Tobacco: Former Cigarettes 1 40 0 12/10/1976 - 12/10/2016 Smokeless Tobacco: Never Alcohol Use Standard Drinks/Week Comments Yes 6 (1 standard drink = 0.6 oz pur e alcohol) Socially, 3 beers per night PHQ-2 Answer Date Recorded Total Score 0 08/14/2020 Childcare Answer Date Recorded Childcare Unknown 04/04/2019 Employment Answer Date Recorded Employment Unknown 04/04/2019 Hunger Screening Answer Date Recorded Within the past 12 months we worried whether our food would run out before we got money to buy more. Never True 08/08/2023 Food Insecurity - Inability Not on file 07/24 Purpose - Life Answer Date Recorded Purpose and direction in life Unknown Sex and Gender Information Value Date Recorded Sex Assigned at Male 03/30/2020 9:41 AM EDT Legal Sex Male 11:33 AM EDT Gender Identity Male 03/30/2020 9:41 AM EDT Sexual Orientation Straight 03/30/2020 9: 41 AM EDT Last Filed Vital Signs Vital Sign Reading Time Taken Comments Blood Pressure 139/73 08/08/2023 3:18 PM EDT Pulse 79 08/08/2023 3:18 PM EDT Temperature 36.1 C (96.9 F) 07/25/2023 9:52 AM EDT Respiratory Rate 13 07/25/2023 1:44 PM EDT Oxygen Saturation 98% 07/25/2023 1:35 PM EDT Inhaled Oxygen Concentration - - Weight 97.5 kg (215 lb) 08/08/2023 3:18 PM EDT Height 177 cm (5' 9.69 ) 08/08/2023 3:18 PM EDT Body Mass Index 31.12 08/08/2023 3:18 PM EDT Plan of Treatment Health Maintenance Due Date Last Done Comments Depression Screening 1960 DTaP,Tdap and Td Vaccines (1 - Tdap) 01/26/1967 Zoster (Shingles) Vaccine (1 of 2) 01/26/1998 Abdominal Aortic Aneurysm (A AA) Screen 01/26/2013 Fall Risk Screening 01/26/2013 COVID-19 Vaccine (5 - 2023-2 5 season) 2024 05/16/2022, 09/15/2021, 01/22/2021, Additional history exists Tobacco Screening 08/08/2024 08/08/2023 Influenza Vaccine 06/24/2025 09/15/2021, 08/14/2019 Colonoscopy Discontinued 07/22/2023, 06/25, 10/20/2020, Additional history exists Medical Devices Implanted Type Area Him Analyst Device Identifier Shelf Expiration Date Model / Serial / Lot Lens Iol Ultrasert 17.5d - [id number] - [id number] Implanted:Qty: 1 on 08/21/2019 by Rose Marie Concepcion MD at [facility] Lens Right: [employer] 08/22/2021 [id number] 17.5 / [id number] / NA Lens Iol Ultrasert 17.5d - [id number] - [id number] Implanted:Qty: 1 on 09/06/2019 by Rose Marie Concepcion MD at [facility] Lens Left: [employer] 04/22/2021 [id number] 17.5 / [id number] / NA Mesh 15x9cm Parietex Progrip Slf Fx Srg - [id number] Implanted:Qty: 1 on 07/25/2023 by Delta Piña MD at [facility] Mesh [employer] 09/22/2027 [id number] 09G / NA / [id number] Procedures Procedure Name Priority Date/Time Associated Diagnosis Comments PROVATION COLONOSCOPY Routine 07/22/2023 8:26 AM EDT from Last 3 Months or Most Recently Relevant to Health Maintenance Results * Colonoscopy Report (07/22/2023 8:26 AM EDT) Narrative SYSTEMGENERATED, DOCUMENTATION - 07/22/2023 8:26 AM EDT This order has been auto-finalized for image and report archival in PACs. *For full report details, please reach out to your physician. This image is visible to you in MyChart.* us Delta Piña MD IMG OR IMG ORDERABLES Consuelo katz Result from Last 3 Months or Most Recently Relevant to Health Maintenance Insurance [employer] MEDICARE Care Teams Cultured Marble Products Maker Relationship Specialty Start Date End Date Pool Peace MD PCP - General 09/16/17
--- OUTSIDE RECORDS SUMMARY | 2025-03-13 12:52 | XMS_ITS | Encounter Summary ---
Author Organization [facility] Address [address] [address] Care Team Providers Care Cylinder Loader Name Role Phone Pool Peace MD Primary Care Provider [phone] Reason for Visit * Reason Comments Med Refill Encounter Details Date Type Department Care Team (Late st Contact Info) Description 10/16/2022 Refill [facility] Card[facility] Clinic [address] [place] [phone] Dev Iniguez MD [address] [facility] [place] [phone] Coronary atherosclerosis due to calcified coronary lesion (CODE) Social History Tobacco Use Types Packs/Day Years Used Date Smoking Tobacco: Never Assessed Sex and Gender Information Value Date Recorded Sex Assigned at Not on file Gender Identity Not on file Sexual Orientation Not on file documented as of this encounter Plan of Treatment Not on file documented as of this encounter Visit Diagnoses Diagnosis Coronary atherosclerosis due to calcified coronary lesion (CODE) documented in this encounter Care Teams Cylinder Loader Relationship Specialty Start Date End Date Pool Peace MD [address] [place] [address] PCP - General 12/13/22 documented as of this encounter
--- OUTSIDE RECORDS SUMMARY | 2025-03-13 12:52 | XMS_ITS | Encounter Summary ---
Author Organization [facility] Address [address] [place] [address] Care Team Providers Care Stablehand Name Role Phone Pool Peace MD Primary Care Provider [phone] Reason for Visit * Reason Comments Med Refill Encounter Details Date Type Department Care Team (Late st Contact Info) Description 09/18/2022 Refill [facility] [address] [place] [phone] Dev Iniguez MD [address] [facility] [place] [phone] Coronary atherosclerosis due to calcified coronary lesion [...] (CODE) documented in this encounter Care Teams Stablehand Relationship Specialty Start Date End Date Pool Peace MD [address] [place] [address] PCP - General 12/13/22 documented as of this encounter
--- OUTSIDE RECORDS SUMMARY | 2025-03-13 12:53 | XMS_ITS | Patient Health Record ---
Author Organization [facility] in [place] Address [address] [place] [address] Care Team Providers Care Dual Rate Supervisor Name Role Phone Pool Peace MD Primary Care Provider UnavailLeigha Aly Unavailable [phone] Allergies Allergen (clinical drug ingredient) Drug/Non Drug Allergy documented on EMR Reaction Allergy Type Onset Date Status Penicillin rash Drug Allergy Active Results Component Value Reference Range Notes CT lung screening low-dose Reviewed date:09/26/2024 08:07:39 AM Interpretation: Performing Lab: Notes/Report: Source Facility: [place] [address] CT Scan Report Signed Patient: MIKE OSEI MR#: [id number] : 1950 Acct:[id number] Age/Sex: 74 / M ADM Date: 09/25/24 Loc: CT Attending Dr: Leigha Pedraza D.O. Ordering Physician: Leigha Pedraza D.O. Date of Service: 09/25/24 Procedure(s): CT lung screening low-dose Accession Number(s): [id number] cc: Pool Peace M.D. [place] [address] Patient Name: MIKE OSEI MRN: [id number] date: 1950 Sex: M Assigned Patient Location: CT Current Patient Location: Accession/Order Number: [id number] Exam Date: 09/25/2024 09:21 Report Date: 09/26/2024 07:33 At the request of: LEIGHA PEDRAZA Procedure: CT lung screening low-dose EXAMINATION: [...] Dictated By: Umm Sandhu M.D. Signed By: 09/26/24 0736 DD/ 0733 TD/TT: User Experience Developer: [place] [address] CT Scan Report Signed Patient: MIKE OSEI MR#: [id number] : 1950 Acct:[id number] Age/Sex: 74 / M ADM Date: 09/25/24 Loc: CT Attending Dr: Leigha Pedraza D.O. Ordering Physician: Leigha Pedraza D.O. Date of Service: 09/25/24 Procedure(s): CT edelmira g screening low-dose Accession Number(s): [id number] cc: Pool Peace M.D. The [place] [id number] Patient Name: MIKE OSEI MRN: [id number] date: 1950 Sex: M Assigned Patient Location: CT Current Patient Location: Accession/Order Numb er: [id number] Exam Date: 09:21 Report Date: 09/26/2024 07:33 At the request of: LEIGHA PEDRAZA Procedure: CT lung s creening low-dose EXAMINATION: CT lung screening low-dose HISTORY: Lung cancer screening COMPARISON: 09/19/2023 TECHNIQUE: Axial, Co chloé, and Sagittal images were created without the administration of IV contrast material. Dose reduction techniques were achieved by using automated e xposure control and/or adjustment of mA and/or kV according to patient size and/ or use of iterative reconstruction technique. FINDINGS: LUNGS: Table scatter ed calcified and noncalcified pulmonary nodules the largest noncalcified pulmona ry nodule is identified in the medial basilar segment of the right lower lobe measuring 6.3 mm, axial image 99. Linear opacity in the right lung base, ate lectasis is favored PLEURA: No mass, eff usion, or pneumothorax. VASCULATURE: No abnormality. WINDY: No mass or pat hologic adenopathy. MEDIASTINUM: No mass or pathologic adenopathy. CARDIAC: No enlargem ent or pericardial effusion CORONARY ARTERIES: C oronary calcifications are moderate. AORTA: No aortic ane urysm. Moderate calcific atherosclerosis CHEST WALL: No mass or axillary adenopathy BONES: No bone lesio n or fracture. LIMITED ABDOMEN: Cholelithiasis. OTHER: Negative. C T/CT lung screening low-dose IMPRESSION: Stable s cattered subcentimeter pulmonary nodules LUNG SCREENING: Lung -RADS Category 2- Benign Appearance or Behavior. Nodules with a very low like lihood of becoming a clinically active cancer due to size or lack of growth. 2 . Continue annual screening with LDCT in 12 months. Electronically authe nticated by: UMM SANDHU Date: 09/26/2024 07:33 Dictated By: Umm Sandhu M.D. Signed By: 09/26/24 0736 DD/ 0733 TD/TT: User Experience Developer: CT Chest Low Dose for Screen ing* Reviewed date:09/26/2024 07:48:52 AM Interpretation: Performing Lab: Notes/Report: Reason For Referral No Information Medications Medication SIG (Take, Route, Frequency, Duration) Notes Start Date End Date Status Atorvastatin Calcium 80 MG Oral for 90 Days Active Losartan Potassium 100 MG TAKE 1 TABLET BY MOUTH EVERY DAY Oral for 90 Days Active Trelegy Ellipta 200-62.5-25 MCG/ACT 1 puff Inhalation QD for 90 days Active Metoprolol Succinate ER 50 MG Oral for 90 Days Active Clopidogrel Bisulfate 75 MG Oral for 90 Days Active hydroCHLOROthiazide 25 MG Oral for 90 Days Active Albuterol Sulfate HFA 108 (90 Base) MCG/ACT 2 puffs as needed for SOB Inhalation Q4H for 90 days This is a 90 day supply, not an 84 day supply... Active Immunizations Vaccine Route Administration Date Status Comme nts Flu, Fluad (20988) 65 yrs an d older, single-dose syringe Unknown 08/15/2024 Administered Flu, Fluzone High-Dose (2022 -2023) (55996) 65 yrs+ Unknown 09/15/2021 Administered SARS-COV-2 (COVID 19 Moderna - Booster 0.25mL) Unknown 05/16/2022 Administered Tdap (Boostrix) Unknown 03/12/2024 Administered Social History Tobacco Use: Social History Observation [...] Problem Status W/U Status Risk Notes Problem 841391192 Unspecified asthma with (acute) exacerbation (J45.901) Active confirmed Problem 509474422 Obesity, unspecified (E66.9) Active confirmed Problem Long-term current use of 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 (397378965) long-term (current) use of 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s (Z79.51) Active confirmed Problem Multiple pulmonary nodules (002714294) Multiple pulmonary nodules (R91.8) Active confirmed Problem Ex-tobacco user (finding) (676719812) History of tobacco abuse (Z87.891) Active confirmed 1ppd x 40 years, quit 2017 Problem Eosinophilic asthma (231589544) 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) Active confirmed Prior treatment: Trelegy 200 >>> Pulmicort/ Yupelri/Br ovana = Breztri > Trelegy 100, Stiloto, Duaklir Problem Body mass index 30.00 to 34.99 (23210573706093 7) Body mass index [BMI] 31.0-31.9, adult (Z68.31) Active confirmed Vital Signs Heart Rate 75 /min 09/12/2024 Temperature 96.4 degrees Fahrenheit 09/12/2024 Respiratory Rate 18 /min 09/12/2024 Oximetry 97 % 09/12/2024 Blood pressure diastolic 76 mm Hg 09/12/2024 Height 70 in 09/12/2024 Blood pressure systolic 124 mm Hg 09/12/2024 Weight 219.0 lbs 09/12/2024 BMI 31.42 kg/m2 09/12/2024 Encounters Encounter Location Date Provider Diagnosis Pulmonary Medicine [address] [place] [address] 07/11/2024 [facility] Pulmonary Medicine [address] [place] [address] 09/11/2024 [facility] [address] [place] [address] 09/26/2024 [facility] [address] [place] [address] 09/12/2024 [facility] Eosinophilic asthma J82.83 ; Multiple pulmonary nodules R91.8 ; History of tobacco abuse Z87.891 ; long-term (current) use of 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s Z79.51 and Obesity, unspecified E66.9 Assessments Encounter Date Diagnosis (ICD Code) Assessment Notes Treatment Notes Treatment Clinical Notes Section Notes 09/12/2024 Eosinophilic asthma (ICD-10 - J82.83) Prior treatment: Trelegy 200 >>> Pulmicort/Yupe lri/Brovana = Breztri > Trelegy 100, Stiloto, Duaklir Patient is once again in the donut [...] unaffordable for him. I am not an assurance manager insurance, but I suggested he may want to [...] quit 2017 LDCT scheduled for 09/25/2024. 09/12/2024 long-term (current) use of 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s (ICD-10 - Z79.51) Patient was counseled to rinse & gargle with water after inhaled corticosteroid use. 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 Weight loss indicated: Decrease calories, increase activity. 09/12/2024 Other Plan Of Treatment Next Appt Details Provider Name:Leigha Pedraza, 09/11/2025 10:00:00 AM, [address] [place], [address], Insurance Providers Payer Name Payer Address Payer Phone Subscriber Number Group Number Insured Name Patient Relationship to Insured Coverage Start Date Coverage End Date [employer] [address] [address] [place], [place] [id number] Mike Osei Self - patient is the insured Medical (General) History Medical History History ICD Code Eosinophilic asthma J82.83 long-term (current) use of inhaled stero ids Z79.51 History of tobacco abuse Z87.891 DDD (degenerative disc disease), lumbar M51.36 BPH (benign prostatic hypertrophy) N40.0 CAD (coronary artery disease) I25.10 Chronic kidney disease (CKD), stage III (moderate) N18.30 Dyslipidemia E78.5 Multiple pulmonary nodules R91.8 KEIRY (obstructive sleep apnea) G47.33 PAD (peripheral artery disease) I73.9 Allergic rhinitis due to pollen J30.1 Umbilical hernia K42.9 Vitamin D deficiency E55.9 Surgical History Surgery Date(Month/Year) Bronchoscopy 03/11/2022 vasectomy cataract removal-bilateral tonsillectomy Stent-Right superficial femoral artery 1 hernia repair
--- OUTSIDE RECORDS SUMMARY | 2025-03-13 12:54 | XMS_ITS | CCD ---
Author Organization [facility] Team Providers Care Anodizer Name Role Phone [place] Procedure Practitioner Unavailab le SELF, REFERRED Referring Unavailable SELF, REFERRED Primary Care Unavailable EBRAHEIM, ANDREWS Surgeon Unavailable EBRAHEIM, ANDREWS Attending Unavailable EBRAHEIM, ANDREWS Admitting Unavailable [place] Procedure Practitioner Unavailab RASHEEDA Galarza Surgeon Unavailable UNKNOWN, PROVIDER Attending Unavailable UNKNOWN, PROVIDER Admitting Unavailable NADEREPOOL Vee Primary Care Unavailable NADEREPOOL Vee Referring Unavailable UNKNOWN, PROVIDER Attending Unavailable UNKNOWN, PROVIDER Admitting Unavailable NADEREPOOL Vee Referring Unavailable NADEREPOOL Vee Primary Care Unavailable UNKNOWN, PROVIDER Attending Unavailable UNKNOWN, PROVIDER Admitting Unavailable SELF, REFERRED Referring Unavailable SELF, REFERRED Primary Care Unavailable WA Procedure Practitioner Unavailab le SELF, REFERRED Primary [...] CHANTELLE Consulting Unavailable LANGENBERG, CARMEN Consulting Unavailable ZICHANDA, DR BRADY Vee Consulting Unavailable NADERER, DR [...] CHAUHAN ., DR SCOTT Jurado Attending Unavailable CHAUAHN ., DR SCOTT Jurado Admitting Unavailable Katiana Kemp Unavailable JOANNE GALLEGOS Consulting Unavailable GALEN FOFANA Attending Unavailable NADERER, POOL ZAYRA Primary Care UnavailPool Mendoza MD Unavailable Pool Garcia MD Primary Care Provider [phone] ARON ANDERSON Attending Unavailable HOLLY HUGHES Attending Unavailable NADERER, POOL Attending Unavailable NADERER, POOL Attending Unavailable Allergies Allergy Classification Reported Allergen(s) Allergy Type Date of Onset Reaction(s) Facility (3 sources) Penicillins; Translations: [PENICILLINS] Drug allergy (disorder) 7 [facility] Repository (3 sources) Penicillin G Drug Allergy 4 hives and throat swelling [facility] (15 sources) Morphine; Translations: [MORPHINE] Drug Allergy 4 Unknown, Nausea And Vomiting, Other [facility] (12 sources) Penicillins Drug Allergy 9 Anaphylaxis, Angioedema, Hives, Itching, Other, Rash, Unknown [facility] Medications Current Medications Medication Drug Class(es) Dates Sig (Normalized) Sig (Original) amLODIPine 10 mg oral tablet (3 sources) Dihydropyridine Calcium Channel Karina Start: 09-04-2024 End: 02-02-2025 take 1 tablet by mouth once daily Amlodipine 10 mg tablet Active 10 MG PO Daily February 02, 2025 10:44am atorvastatin 80 mg oral tablet (14 sources) HMG-CoA Reductase Inhibitor Start: 02-02-2025 take 1 tablet by mouth once daily Atorvastatin 80 mg tablet Active 80 MG PO Daily February 02, 2025 12:00am take 2 tablets by mouth once cinthia ly atorvastatin (Lipitor) 40 MG tablet Take 80 mg by mouth Daily Active Atorvastatin Christiano cium Active clopidogrel 75 mg oral tablet (14 sources) P2Y12 Platelet Inhibitor Start: 11-09-2023 take [...] 1 capsule Orally Once a day Active Pjkgaetjenu-Blsxztuvp-Msls nter (1 source) Start: 2024 Tiromjqccny-Scfovxbsu-Che anter (Trelegy Ellipta) 200-62.5-25 mcg blister with device Active 1 INH INHALATION Once February 02, 2025 12:00am hydroCHLOROthiazide 25 mg oral tablet (15 sources) Thiazide Diuretic Start: 2023 take 1 tablet by mouth once daily hydroCHLOROthiazide (HYDRODiuril) 25 MG tablet Indications: Essential (primary) hypertension (CMS/HCC) , Benign essential hypertension (CMS/HCC) TAKE 1 TABLET BY MOUTH EVERY DAY 90 tablet 3 03/05/2024 Active hydroCHLOROthiaz betito Active losartan potassium 100 mg oral tablet (17 sources) Angiotensin 2 Receptor Karina Start: 07-24-2024 End: 07-24-2025 take 1 tablet by mouth once daily losartan (Cozaar) 100 MG tablet Indications: Essential (primary) hypertension (CMS/HCC) , Benign essential hypertension (CMS/HCC) Take 1 tablet (100 mg) by mouth Daily 100 tablet 3 07/24/2024 07/24/2025 Active Losartan Potassi um Active 24 hr metoprolol succinate 50 mg extended release oral tablet (16 sources) beta-Adrenergic Karian Start: 02-02-2025 take 1 tablet by mouth once daily Metoprolol Succinate 50 mg tablet extended release 24 hr Active 50 MG PO Daily February 02, 2025 10:45am Start: 09-04-2024 End: 02-02-2025 take 1 tablet by mouth every twenty-four hours Metoprolol Succinate 50 mg tablet extended release 24 hr Discontinued MG PO September 04, 2024 1:00am February 02, 2025 10:47am Metoprolol Succi nelson ER Active Multivitamin preparation (1 source) take 1 tablet by mouth once daily Multi Vitamin - 1 tablet Orally Once a day Active Osteo Bi-Flex Adv Joint Shield (1 source) Osteo Bi-Flex Ad v Joint Shield Active predniSONE 50 mg oral tablet (7 sources) Start: 02-13-2025 End: 02-19-2025 take 1 tablet by mouth once daily predniSONE (Deltasone) 50 MG tablet Indications: Degeneration of intervertebral disc of lumbar region with discogenic back pain Take 1 tablet (50 mg) by mouth Daily for 6 days 6 tablet 02/13/2025 02/19/2025 Active Start: 09-04-2024 End: 02-02-2025 take 3 tablets by mouth once daily, then take 2 tablets by mouth once daily, then take 1 tablet by mouth once daily Prednisone 20 mg tablet Discontinued 20 MG PO .COMPLEX September 04, 2024 1:00am February 02, 2025 10:45am Take 3 tabs po daily x 3 [...] Active Trelegy Ellipta 200-62.5-25 MCG/ACT aerosol powder (12 sources) Start: 01-05-2024 Trelegy Ellipta 200-62.5-25 MCG/ACT aerosol powder 01/05/2024 Active Vitamin C 500 MG (1 source) [...] DAY 30 tablet 2 02/13/2024 08/15/2024 Discontinued Vitamin A Palmitate (A-25 (Vit A Palmitate)) 7,500 mcg (25,000 unit) capsule (2 sources) Start: 09-04-2024 End: 02-02-2025 Vitamin A Palmitate (A-25 (Vit A Palmitate)) 7,500 mcg (25,000 unit) capsule Discontinued 7500 MCG PO every week September 04, 2024 1:00am February 02, 2025 10:45am Start: 09-04-2024 Vitamin A Palm itate (A-25 (Vit A Palmitate)) 7,500 mcg (25,000 unit) capsule Active 7500 MCG PO every week September 04, 2024 12:00am Problems Active Problems Problem Classification Problem Date Documented Date Episodic/Chronic Blindness and vision defects (1 source) Blindness, one eye, unspecified eye; Translations: [Profound impairment, one eye, impairment level not further specified] 02-02-2025 Chronic Chronic kidney disease (18 sources) Chronic kidney disease, unspecified; Translations: [Chronic kidney disease stage 3] Onset: 03-03-2022 02-14-2024 Chronic Chronic obstructive pulmonary disease and bronchiectasis (18 sources) Chronic obstructive pulmonary disease, unspecified; Translations: [Chronic obstructive lung disease] Onset: 03-16-2022 02-14-2024 Chronic Coronary atherosclerosis and other heart disease (16 sources) Atherosclerotic heart disease of [place] coronary artery without angina pectoris; Translations: [Coronary arteriosclerosis] Onset: 03-16-2022 02-14-2024 Chronic Disorders of lipid metabolism (18 sources) Hyperlipidemia, unspecified; Translations: [Dyslipidemia] Onset: 07-30-2022 02-14-2024 Chronic Essential hypertension (20 sources) Essential (primary) hypertension; Translations: [Benign essential hypertension] Onset: 07-27-2022 Chronic Fracture of lower limb (1 source) Unspecified fracture of shaft of right fibula, initial encounter for closed fracture; Translations: [Closed fracture of unspecified part of fibula alone] 02-02-2025 Episodic Gout and other crystal arthropathies (3 sources) 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; Translations: [Gout, unspecified] Chronic Hyperplasia of prostate (14 sources) Benign prostatic hyperplasia without lower urinary [...] for immunization] 08-15-2024 Episodic Malaise and fatigue (12 sources) Other fatigue; Translations: [Fatigue] Onset: 01-13-2023 Episodic Nutritional deficiencies (14 sources) Vitamin D deficiency, unspecified; Translations: [Vitamin D deficiency] Onset: 07-30-2022 02-14-2024 Chronic Open wounds of head; neck; and trunk (1 source) Ocular laceration without prolapse or loss of intraocular tissue, left eye, initial encounter; Translations: [Ocular laceration without prolapse or loss of intraocular tissue, left eye, initial encounter] Onset: 03-12-2024 Episodic Osteoarthritis (14 sources) Unilateral primary osteoarthritis, right knee; Translations: [Osteoarthritis of right knee joint] Onset: 03-16-2022 02-14-2024 Chronic Other aftercare (1 source) Other chcf (current) drug therapy; Translations: [OTH TEXTILE SCRAP SALVAGER CURRENT DRUG THERAPY] Onset: 01-16-2023 Episodic Other aftercare (10 sources) Long-term current use of drug therapy; Translations: [Other 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 attack controller (current) drug therapy] Onset: 02-13-2025 08-15-2024 Episodic Other diseases of veins and [...] to 30.9 in adult] 08-15-2024 Chronic Other upper respiratory disease (1 source) Allergic rhinitis due to pollen; Translations: [ALLERGIC RHINITIS DUE TO POLLEN] Onset: 03-16-2022 Chronic Other upper respiratory disease (13 sources) Allergic rhinitis due to pollen; Translations: [Allergic rhinitis due to pollen] Onset: 02-14-2024 02-14-2024 Chronic Peripheral and visceral atherosclerosis (20 sources) Peripheral vascular disease, unspecified; Translations: [Peripheral vascular disease, unspecified] Onset: 03-16-2022 02-14-2024 Chronic Residual codes; unclassified (1 source) Obstructive sleep apnea (adult) (pediatric); Translations: [OBSTRUCTIVE SLEEP APNEA] Onset: 03-16-2022 Chronic Residual codes; unclassified (13 sources) Obstructive sleep apnea syndrome; Translations: [Obstructive sleep apnea (adult) (pediatric)] Onset: 02-14-2024 02-14-2024 Chronic Skull and face fractures (1 source) Fracture of orbital floor, left side, initial encounter for closed fracture; Translations: [Fracture of orbital floor, left side, initial encounter for closed fracture] Onset: 03-12-2024 Episodic Spondylosis; intervertebral disc disorders; other back problems (19 sources) Other spondylosis with radiculopathy, lumbar region; [...] Date Documented Date Episodic/Chronic Biliary tract disease (13 sources) Biliary calculus; Translations: [Calculus of gallbladder without cholecystitis without obstruction] Onset: 02-14-2024 02-14-2024 Episodic Mood disorders (12 sources) Mood disorders Onset: 08-15-2024 08-15-2024 Other aftercare (1 source) 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 of anticoagulants; Translations: [TEXTILE SCRAP SALVAGER CURRNT USE ANTICOAGULANTS] Onset: 03-03-2022 Episodic Other [...] conditions (not mental disorders or infectious disease) (20 sources) Encounter for screening for malignant neoplasm of prostate; Translations: [CT of abdomen abnormal] Onset: 07-30-2022 02-14-2024 Episodic Pleurisy; pneumothorax; pulmonary collapse (1 source) [...] Test Name Value Interpretation Reference Range Facility MR [place] [address] Magnetic Resonance Report Signed Patient: HUY OSEI MR#: [id number] : 1950 Acct:[id number] Age/Sex: 75 / M ADM Date: 03/08/25 Loc: MRI Attending Dr: Maricarmen Rhoades NP Ordering Physician: Maricarmen Rhoades NP Date of Service: 03/08/25 Procedure(s): MR lumbar spine wo con Accession Number(s): [id number] cc: Maricarmen Rhoades NP; Pool Garcia M.D. [address] [address] Patient Name: HUY OSEI MRN: [facility]:[id number] date: 1950 Sex: M Assigned Patient Location: MRI Current Patient Location: MRI Accession/Order Number: [id number] Exam Date: 03/08/2025 14:55 Report Date: 03/08/2025 15:00 At the request of: MARICARMEN RHOADES NP Procedure: MR lumbar spine wo con [...] Lentz M.D. 03/08/2025 3:00 PM Dictation Location: [place] [address] Electronically authenticated by: [id number] Y Date: 03/08/2025 15:00 Dictated By: Sanket Lentz M.D. Signed B (more content not included)... [facility] Radiology, Radiologist, MD - 03/08/2025 [place] [address] Magnetic Resonance Report Signed Patient: HUY OSEI MR#: [id number] : 1950 Acct:[id number] Age/Sex: 75 / M ADM Date: 03/08/25 Loc: MRI Attending Dr: Maricarmen Rhoades NP Ordering Physician: Maricarmen Rhoades NP Date of Service: 03/08/25 Procedure(s): MR lumbar spine wo con Accession Number(s): [id number] cc: Maricarmen Rhoades NP; Pool Garcia M.D. The [address] [address] Patient Name: HUY OSEI MRN: [facility]:[id number] date: 1950 Sex: M Assigned Patient Location: MRI Current Patient Location: MRI Accession/Order Number: [id number] Exam Date: 03/08/2025 14:55 Report Date: 03/08/2025 15:00 At the request of: MARICARMEN RHOADES NP Procedure: MR lumbar spine wo con [...] Lentz M.D. 03/08/2025 3:00 PM Dictation Location: [place] [address] Electronically authenticated by: [id number] Y Date: 03/08/2025 15:00 Dictated By: Sanket Lentz M.D. 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 Machine Operator: [facility] Radiology Study observation (narrative) [facility] MR LUMBAR SPINE WO CONOrdere d By: Radiologist Radiology on 03-08-2025 [facility] Work Phone: XR LUMBAR SPINE 6V W BENDING on 02-21-2025 [place] [address] XRay Report Signed Patient: HUY OSEI MR#: [id number] : 1950 Acct:[id number] Age/Sex: 75 / M ADM Date: 02/21/25 Loc: RAD Attending Dr: Maricarmen Rhoades NP Ordering Physician: Maricarmen Rhoades NP Date of Service: 02/21/25 Procedure(s): XR lumbar spine 6V w bending Accession Number(s): [id number] cc: Maricarmen Rhoades NP; Pool Garcia M.D. The [address] [address] Patient Name: HUY OSEI MRN: [facility]:[id number] date: 1950 Sex: M Assigned Patient Location: [facility] Current Patient Location: [facility] Accession/Order Number: [id number] Exam Date: 02/21/2025 11:57 Report Date: 02/21/2025 11:59 At the request of: MARICARMEN RHOADES NP Procedure: XR lumbar spine 6V w [...] Jr., D.O. 02/21/2025 11:59 AM Dictation Location: [place] [address] Electronically authenticated by: [id number] Y Date: 02/21/2025 11:59 Dictated By: Ezra Lacy M.D. Signed By: 02/21/25 1201 DD/ 1159 TD/TT: Facing Cutting Machine Operator: [facility] Radiology, Radiologist, MD - 02/21/2025 [place] [address] XRay Report Signed Patient: HUY OSEI MR#: [id number] : 1950 Acct:[id number] Age/Sex: 75 / M ADM Date: 02/21/25 Loc: ANDREI Attending Dr: Maricarmen Rhoades NP Ordering Physician: Maricarmen Rhoades NP Date of Service: 02/21/25 Procedure(s): XR lumbar spine 6V w bending Accession Number(s): [id number] cc: Maricarmen Rhoades NP; Pool Garcia M.D. [place] [id number] Patient Name: HUY OSEI MRN: [facility]:[id number] date: 1950 Sex: M Assigned Patient Location: [facility] Current Patient Location: [facility] Accession/Order Number: [id number] Exam Date: 02/21/2025 11:57 Report Date: 02/21/2025 11:59 At the request of: MARICARMEN RHOADES NP Procedure: XR lumbar spine 6V w [...] L5-S1. Impression dictated by: Ezra Lacy Jr., D.OOtoniel 02/21/2025 11:59 AM Dictation Location: [place] [address] Electronically authenticated by: [id number] Y Date: 02/21/2025 11:59 Dictated By: Ezra Lacy M.D. Signed By: 02/21/25 1201 DD/ 1159 TD/TT: Facing Cutting Machine Operator: [facility] Radiology Study observation (narrative) [facility] XR LUMBAR SPINE 6V W BENDING Ordered By: Radiologist Radiology on 02-21-2025 [facility] [employer] Work Phone: XR ANKLE RT MIN 3Von [address] [address] XRay Report Signed Patient: HUY OSEI MR#: [id number] : 1950 Acct:[id number] Age/Sex: 75 / M ADM Date: 02/18/25 Loc: EC Attending Dr: Chas Forte M.D. Ordering Physician: Chas Forte M.D. Date of Service: 02/18/25 Procedure(s): XR ankle RT min 3V Accession Number(s): [id number] cc: Chas Forte M.D.; Pool Garcia M.D. The [place] [id number] Patient Name: HUY OSEI MRN: [facility]:[id number] date: 1950 Sex: M Assigned Patient Location: Current Patient Location: Accession/Order Number: [id number] Exam Date: 02/18/2025 16:00 Report Date: 02/18/2025 16:01 At the request of: CHAS FORTE MD Procedure: XR ankle RT min 3V RIGHT ANKLE - 3 views CLINICAL HISTORY: S82.831D Closed fracture of distal end of right fibula COMPARISON: Ankle series 01/14/2025 FINDINGS: Diffuse soft tissue swelling. Dista Fibular fracture grossly unchanged alignment with callus formation suggestive of healing response. XR/XR ankle RT min 3V IMPRESSION: HEALING DISTAL FIBULAR FRACTURE. Impression dictated by: Ezra Lacy Jr., D.O. 02/18/2025 4:01 PM Dictation Location: [place] [address] Electronically authenticated by: [id number] Y Date: 02/18/2025 16:01 Dictated By: Ezra Lacy M.D. Signed By: 02/18/25 1604 DD/ 1601 TD/TT: Facing Cutting Machine Operator: [facility] Radiology, Radiologist, - 02/18/2025 [place] [address] XRay Report Signed Patient: HUY OSEI MR#: [id number] : 1950 Acct:[id number] Age/Sex: 75 / M ADM Date: 02/18/25 Loc: Attending Dr: Chas Forte M.D. Ordering Physician: Chas Forte M.D. Date of Service: 02/18/25 Procedure(s): XR ankle RT min 3V Accession Number(s): [id number] cc: Chas Forte M.D.; Pool Garcia M.D. The [place] [id number] Patient Name: HUY OSEI MRN: [facility]:[id number] date: 1950 Sex: M Assigned Patient Location: Current Patient Location: Accession/Order Number: [id number] Exam Date: 02/18/2025 16:00 Report Date: 02/18/2025 16:01 At the request of: CHAS FORTE MD Procedure: XR ankle RT min 3V RIGHT ANKLE - 3 views CLINICAL HISTORY: S82.831D Closed fracture of distal end of right fibula COMPARISON: Ankle series 01/14/2025 FINDINGS: Diffuse soft tissue swelling. Dista Fibular fracture grossly unchanged alignment with callus formation suggestive of healing response. XR/XR ankle RT min 3V IMPRESSION: HEALING DISTAL FIBULAR FRACTURE. Impression dictated by: Ezra Lacy Jr., D.O. 02/18/2025 4:01 PM Dictation Location: [place] [address] Electronically authenticated by: [id number] Y Date: 02/18/2025 16:01 Dictated By: Ezra Lacy M.D. Signed By: 02/18/25 1604 DD/ 1601 TD/TT: Facing Cutting Machine Operator: [facility] Radiology Study observation (narrative) [facility] XR ANKLE RT MIN 3VOrdered By : Radiologist Radiology on 02-18-2025 [facility] Work Phone: ALL BASIC METABOLIC PANELon 02-13-2025 Anion gap [Moles/Vol] 11.7 mmol/L [facility] Calcium [Mass/Vol] 10.1 mg/dL 8.5 - 10. 1 mg/dL [facility] Chloride [Moles/Vol] 99 mmol/L 98 - 10 7 mmol/L [facility] CO2 [Moles/Vol] 31 mmol/L 21.0 - 32.0 mmol/L [facility] Creatinine [Mass/Vol] 1.46 mg/dL High 0.70 - 1.30 mg/dL [facility] GFR/1.73 sq M.predicted CKD-EPI (S/P/Bld) [Vol rate/Area] 57 Low >=60 mL/min/1.73m 2 [facility] Glucose [Mass/Vol] 92 mg/dL 74 - 106 mg/dL [facility] Interpretation and review of laboratory results Abnormal [facility] Potassium [Moles/Vol] 3.7 mmol/L 3.5 - 5.1 mmol/L [facility] Sodium [Moles/Vol] 138 mmol/L 136 - 145 mmol/L [facility] TBH EGFR-NON AF EQUATORIAL GUINEAN 47 Low >=60 mL/min/1.73m 2 [facility] Urea nitrogen [Mass/Vol] 20 mg/dL High 7.0 - 18.0 mg/dL [facility] Urea nitrogen/Creatinine [Mass ratio] 13.7 mg/mg [facility] Albumin [Mass/Vol] 3.6 g/dL 3.4 - 5.0 g/dL [facility] ALBUMIN GLOBULIN RATIO 1 NO [facility] ALP [Catalytic activity/Vol] 87 U/L 46 - 116 U/L [facility] ALT [Catalytic activity/Vol] 21 U/L 16 - 63 U/L [facility] AST [Catalytic activity/Vol] 17 U/L 15 - 37 U/L [facility] Bilirubin [Mass/Vol] 0.6 mg/dL 0.2 - 1 .0 mg/dL [facility] Bilirubin.indirect [Mass/Vol] 0.2 mg/dL 0.0 - 0.2 mg/dL [facility] Globulin (S) [Mass/Vol] 3.5 g/dL N [facility] Protein [Mass/Vol] 7.1 g/dL 6.4 - 8.2 g/dL [facility] No Panel Informationon 02-13 [facility] XR ANKLE RT MIN 3Von 025 [place] [address] XRay Report Signed Patient: HUY OSEI MR#: [id number] : 1950 Acct:[id number] Age/Sex: 74 / M ADM Date: 01/14/25 Loc: EC Attending Dr: Chas Forte M.D. Ordering Physician: Chas Forte M.D. Date of Service: 01/14/25 Procedure(s): XR ankle RT min 3V Accession Number(s): [id number] cc: Chas Forte M.D.; Pool Garcia M.D. [place] [address] Patient Name: HUY OSEI MRN: [facility]:[id number] date: 1950 Sex: M Assigned Patient Location: Current Patient Location: Accession/Order Number: [id number] Exam Date: 01/14/2025 14:52 Report Date: 01/14/2025 14:53 At the request of: CHAS FORTE MD Procedure: XR ankle RT min 3V RIGHT ANKLE - 3 views CLINICAL HISTORY: Closed fracture of distal end of right fibula s82.831d COMPARISON: Right ankle 12/22/2024 FINDINGS: Diffuse soft tissue swelling. Distal fibular fracture grossly unchanged in alignment with interval sclerosis and periosteal reaction suggestive of healing response. Plantar spurring. XR/XR ankle RT min 3V IMPRESSION: HEALING DISTAL FIBULAR FRACTURE. Impression dictated by: Ezra Lacy Jr., D.O.01/14/2025 2:53 PM Dictation Location: [place] [address] Electronically authenticated by: [id number] Y Date: 01/14/2025 14:53 Dictated By: Ezra Lacy M.D. Signed By: 01/14/25 1455 DD/ 52 TD/TT: Facing Cutting Machine Operator: [facility] Radiology, Radiologist, MD - 01/14/2025 [place] [address] XRay Report Signed Patient: HUY OSEI MR#: [id number] : 1950 Acct:[id number] Age/Sex: 74 / M ADM Date: 01/14/25 Loc: Attending Dr: Chas Forte M.D. Ordering Physician: Chas Forte M.D. Date of Service: 01/14/25 Procedure(s): XR ankle RT min 3V Accession Number(s): [id number] cc: Chas Forte M.D.; Pool Garcia M.D. The [place] [address] Patient Name: HUY OSEI MRN: [facility]:[id number] date: 1950 Sex: M Assigned Patient Location: Current Patient Location: Accession/Order Number: [id number] Exam Date: 01/14/2025 14:52 Report Date: 01/14/2025 14:53 At the request of: CHAS FORTE MD Procedure: XR ankle RT min 3V RIGHT ANKLE - 3 views CLINICAL HISTORY: Closed fracture of distal end of right fibula s82.831d COMPARISON: Right ankle 12/22/2024 FINDINGS: Diffuse soft tissue swelling. Distal fibular fracture grossly unchanged in alignment with interval sclerosis and periosteal reaction suggestive of healing response. Plantar spurring. XR/XR ankle RT min 3V IMPRESSION: HEALING DISTAL FIBULAR FRACTURE. Impression dictated by: Ezra Lacy Jr., D.O.01/14/2025 2:53 PM Dictation Location: [place] [address] Electronically authenticated by: [id number] Y Date: 01/14/2025 14:53 Dictated By: Ezra Lacy M.D. Signed By: 01/14/251454 DD/ 1453 TD/TT: Facing Cutting Machine Operator: [facility] Radiology Study observation (narrative) [facility] XR ANKLE RT MIN 3VOrdered By : Radiologist Radiology on 01-14-2025 [facility] [employer] Work Phone: XR ANKLE RT MIN 3[address]on [address] [place] [address] XRay Report Signed Patient: HUY OSEI MR#: [id number] : 1950 Acct:[id number] Age/Sex: 74 / M ADM Date: 12/31/24 Loc: EC Attending Dr: Chas Forte M.D. Ordering Physician: Chas Forte M.D. Date of Service: 12/31/24 Procedure(s): XR ankle RT min 3V Accession Number(s): [id number] cc: Cahs Forte M.D.; Pool Garcia M.D. [place] [id number] Patient Name: HUY OSEI MRN: [id number] date: 1950 Sex: M Assigned Patient Location: Current Patient Location: Accession/Order Number: [id number] Exam Date: 12/31/2024 17:31 Report Date: 01/01/2025 15:15 At the request of: CHAS FORTE MD Procedure: XR ankle RT min 3V 3 views right ankle plain film COMPARISON: 12/24/2024 HISTORY: Follow-up right distal fibular fracture ACUTE FINDINGS: Stable distal fibular fracture appears stable alignment DEGENERATIVE CHANGE: Unremarkable SOFT TISSUE FINDINGS: Unremarkable JOINT EFFUSION: None POSTOP CHANGES: None BONE MINERALIZATION: Adequate XR/XR ankle RT min 3V IMPRESSION: Stable findings Impression dictated by: Ramana Caro M.D.01/01/2025 3:15 PM Dictation Location: [place] [address] Electronically authenticated by: [id number] Y Date: 01/01/2025 15:15 Dictated By: Ramana Caro D.O. Signed By: 01/01/25 1517 DD/ 14 TD/TT: Facing Cutting Machine Operator: [facility] Radiology, Radiologist, - 01/01/2025 [place] [address] XRay Report Signed Patient: HUY OSEI MR#: [id number] : 1950 Acct:[id number] Age/Sex: 74 / M ADM Date: 12/31/24 Loc: Attending Dr: Chas Forte M.D. Ordering Physician: Chas Forte M.D. Date of Service: 12/31/24 Procedure(s): XR ankle RT min 3V Accession Number(s): [id number] cc: Chas Forte M.D.; Pool Garcia M.D. The [address] [address] Patient Name: HUY OSEI MRN: [id number] date: 1950 Sex: M Assigned Patient Location: Current Patient Location: Accession/Order Number: [id number] Exam Date: 12/31/2024 17:31 Report Date: 01/01/2025 15:15 At the request of: CHAS FORTE MD Procedure: XR ankle RT min 3V 3 views right ankle plain film COMPARISON: 12/24/2024 HISTORY: Follow-up right distal fibular fracture ACUTE FINDINGS: Stable distal fibular fracture appears stable alignment DEGENERATIVE CHANGE: Unremarkable SOFT TISSUE FINDINGS: Unremarkable JOINT EFFUSION: None POSTOP CHANGES: None BONE MINERALIZATION: Adequate XR/XR ankle RT min 3V IMPRESSION: Stable findings Impression dictated by: Ramana Caro M.D.01/01/2025 3:15 PM Dictation Location: [place] [address] Electronically authenticated by: [id number] Y Date: 01/01/2025 15:15 Dictated By: Ramana Caro D.O. 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: [facility] Radiology Study observation (narrative) [facility] XR ANKLE RT MIN 3VOrdered By : Radiologist Radiology on 01-01-2025 [facility] Work Phone: Orders Onlyon 09-07-2024 Orders Only [id number] Huy Osei 1950 M Date Provider Department Center 09/07/2024 [facility] Family History Problem Relation Age of Onset Cancer Mother Cancer Brother Diabetes Paternal Grandmother Family Status - Relation Status Age at Mother Brother Paternal Grandmother Normal [facility] ALL CBC WITH AUTO DIFFon BASOPHILS ABSOLUTE AUTO 0.1 N [facility] Basophils/100 WBC (Bld) 0.7 % 0.2 - 2.0 % [facility] Eosinophils/100 WBC (Bld) 3.2 % 0.9 - 7.0 % [facility] Erythrocyte distribution width (RBC) [Ratio] 12.9 % 11.0 - 15.0 % [facility] Hematocrit (Bld) [Volume fraction] 35.1 % Low 42.0 - 54.0 % [facility] Hemoglobin (Bld) [Mass/Vol] 11.9 g/dL Low 14.0 - 18.0 g/dL [facility] IMMATURE GRANULOCYTES ABS AUTO 0.03 [facility] Immature granulocytes/100 WBC (Bld) 0.4 % 0.0 - 0.5 % [facility] Interpretation and review of laboratory results Abnormal [facility] LYMPHOCYTES ABSOLUTE AUTO 0.9 Low [facility] Lymphocytes/100 WBC (Bld) 13.3 % Low 20.5 - 60.0 % [facility] MCH (RBC) [Entitic mass] 33.1 pg 25.9 - 34.0 pg [facility] MCHC (RBC) [Mass/Vol] 33.9 g/dL 29.9 - 35.2 g/dL [facility] MCV (RBC) [Entitic vol] 97.8 fL High 80.0 - 94.0 fL [facility] MONOCYTES ABSOLUTE AUTO 0.8 N [facility] Monocytes/100 WBC (Bld) 11.7 % 1.7 - 12.0 % [facility] NEUTROPHILS ABSOLUTE AUTO 4.9 [facility] Neutrophils/100 WBC (Bld) 70.7 % 43.0 - 75.0 % [facility] Platelet mean volume (Bld) [Entitic vol] 9.2 fL Low 9.5 - 13.5 fL [facility] TBH EO # 0.2 [facility] PLT 242 [facility] TB RBC 3.59 Low [facility] WBC 6.9 [facility] Office Visiton 07-13-2024 Follow-up visit [id number] Huy Osei 1950 M Date Provider Department Center 07/13/2024 [facility] Family History Problem Relation Age of Onset Cancer Mother Cancer Brother Diabetes Paternal Grandmother Family Status - Relation Status Age at Mother Brother Paternal Grandmother Level of Service:42116 [place] OFFICE/OUTPATIENT ESTABLISHED LOW MDM 20 MIN Normal [facility] 36on 03-23-2024 34 Approving, but needs appt for additional refills. Normal [facility] CT HEAD WO CONTRASTon 2023 CT HEAD [...] Maria Waddell MD 03/12/24 Final result Normal [facility] Comp Metabolic Profon 2023 Albumin [Mass/Vol] 4.3 g/dL Normal 3.5-5.2 [facility] Comment on above: Performed By: #### C DP, PTT, PT, CP #### [address] [address] Electronic Musical Instrument Repairer: Daniel Rosado MD Albumin/Glob Ratio 2.0 Normal 1.0-2.5 [facility] Comment on above: Performed By: #### C DP, PTT, PT, CP #### [address] [address] [employer] Musical Instrument Repairer: Daniel Rosado MD Alkaline Phos 68 U/L Normal 40-129 [facility] Comment on above: Performed By: #### C DP, PTT, PT, CP #### [address] [address] [employer] Musical Instrument Repairer: Daniel Rosado MD ALT [Catalytic activity/Vol] 17 U/L Normal 10-50 [facility] Comment on above: Performed By: #### C DP, PTT, PT, CP #### [address] [address] [employer] Musical Instrument Repairer: Daniel Rosado MD Anion gap [Moles/Vol] 17 mmol/L High 9-16 [facility] Comment on above: Performed By: #### C DP, PTT, PT, CP #### [address] [address] [employer] Musical Instrument Repairer: Daniel Rosado MD AST [Catalytic activity/Vol] 26 U/L Normal 10-50 [facility] Comment on above: Result Comment: SPEC IMEN SLIGHTLY HEMOLYZED, RESULTS MAY BE ADVERSELY AFFECTED. Performed By: #### C DP, PTT, PT, CP #### [address] [address] Electronic Musical Instrument Repairer: Daniel Rosado MD Bilirubin [Mass/Vol] 0.3 mg/dL Normal 0.00-1.20 [facility] Comment on above: Performed By: #### C DP, PTT, PT, CP #### [facility] [employer] [address] [place] [address] Electronic Musical Instrument Repairer: Daniel Rosado MD Calcium [Mass/Vol] 9.5 mg/dL Normal 8.6-10.4 [facility] Comment on above: Performed By: #### C DP, PTT, PT, CP #### [address] [address] Electronic Musical Instrument Repairer: Daniel Rosado MD Chloride [Moles/Vol] 94 mmol/L Low 98-107 [facility] Comment on above: Performed By: #### C DP, PTT, PT, CP #### [address] [address] Electronic Musical Instrument Repairer: Daniel Rosado MD CO2 [Moles/Vol] 18 mmol/L Low 20-31 [facility] Comment on above: Performed By: #### C DP, PTT, PT, CP #### [address] [address] [employer] Musical Instrument Repairer: Daniel Rosado MD Creatinine [Mass/Vol] 1.8 mg/dL High 0.70-1.20 [facility] Comment on above: Performed By: #### C DP, PTT, PT, CP #### [address] [address] [employer] Musical Instrument Repairer: Daniel Rosado MD GFR/1.73 sq M.predicted among non-blacks MDRD (S/P/Bld) [Vol rate/Area] 40 mL/min/{1.73_m2} Low >60 [facility] Comment on above: Result Comment: These [...] #### C DP, PTT, PT, CP #### [address] [address] Electronic Musical Instrument Repairer: Daniel Rosado MD Glucose [Mass/Vol] 106 mg/dL High 74-99 [facility] Comment on above: Performed By: #### C DP, PTT, PT, CP #### [address] [address] Electronic Musical Instrument Repairer: Daniel Rosado MD Potassium [Moles/Vol] 3.9 mmol/L Normal 3.7-5.3 [facility] Comment on above: Result Comment: SPEC IMEN SLIGHTLY HEMOLYZED, RESULTS MAY BE ADVERSELY AFFECTED. Performed By: #### C DP, PTT, PT, CP #### [address] [address] [employer] Musical Instrument Repairer: Daniel Rosado MD Protein [Mass/Vol] 6.9 g/dL Normal 6.6-8.7 [facility] Comment on above: Performed By: #### C DP, PTT, PT, CP #### [address] [address] [employer] Musical Instrument Repairer: Daniel Rosado MD Sodium [Moles/Vol] 129 mmol/L Low 136-145 [facility] Comment on above: Performed By: #### C DP, PTT, PT, CP #### [address] [address] [employer] Musical Instrument Repairer: Daniel Rosado MD Urea nitrogen [Mass/Vol] 27 mg/dL High 8-23 [facility] Comment on above: Performed By: #### C DP, PTT, PT, CP #### [address] [address] Electronic Musical Instrument Repairer: Daniel Rosado MD APTTon 03-12-2024 aPTT Coag (Bld) [Time] 22.5 s Low 23.0-36.5 [facility] Comment on above: Result Comment: IV Heparin Therapy Range: 66.0-92.0 sec Performed By: #### C DP, PTT, PT, CP #### [address] [address] Electronic Musical Instrument Repairer: Daniel Rosado MD CBC with Diffon 03-12-2024 Abs. Basophil 0.06 k/uL Normal 0.00-0.20 [facility] Comment on above: Performed By: #### C DP, PTT, PT, CP #### [address] [address] Electronic Musical Instrument Repairer: Daniel Rosado MD Abs.Imm.Granulocyte 0.06 k/uL Normal 0.00-0.30 [facility] Comment on above: Performed By: #### C DP, PTT, PT, CP #### [place] [address] Electronic Musical Instrument Repairer: Daniel Rosado MD Abs.Neutrophil (Seg) 5.10 k/uL Normal 1.50-8.10 [facility] Comment on above: Performed By: #### C DP, PTT, PT, CP #### [place] [address] Electronic Musical Instrument Repairer: Daniel Rosado MD Basophils/100 WBC (Bld) 1 % Normal 0-2 M [facility] Comment on above: Performed By: #### C DP, PTT, PT, CP #### [address] [address] Electronic Musical Instrument Repairer: Daniel Rosado MD Eosinophils (Bld) [#/Vol] 0.16 10*3/uL Normal 0.00-0.44 [facility] Comment on above: Performed By: #### C DP, PTT, PT, CP #### [address] [address] Electronic Musical Instrument Repairer: Daniel Rosado MD Eosinophils/100 WBC (Bld) 2 % Normal 1-4 [facility] Comment on above: Performed By: #### C DP, PTT, PT, CP #### [address] [address] Electronic Musical Instrument Repairer: Daniel Rosado MD Erythrocyte distribution width (RBC) [Ratio] 13.6 % Normal 11.8-14.4 [facility] Comment on above: Performed By: #### C DP, PTT, PT, CP #### [address] [address] Electronic Musical Instrument Repairer: Daniel Rosado MD Hematocrit (Bld) [Volume fraction] 34.3 % Low 40.7-50.3 [facility] Comment on above: Performed By: #### C DP, PTT, PT, CP #### [place] [address] Electronic Musical Instrument Repairer: Daniel Rosado MD Hemoglobin (Bld) [Mass/Vol] 11.5 g/dL Low 13.0-17.0 [facility] Comment on above: Performed By: #### C DP, PTT, PT, CP #### [address] [address] Electronic Musical Instrument Repairer: Daniel Rosado MD Immature granulocytes/100 WBC (Bld) 1 % High 0 [facility] Comment on above: Performed By: #### C DP, PTT, PT, CP #### [place] [address] [employer] Musical Instrument Repairer: Daniel Rosado MD Lymphocytes (Bld) [#/Vol] 1.02 10*3/uL Low 1.10-3.70 [facility] Comment on above: Performed By: #### C DP, PTT, PT, CP #### [address] [address] Electronic Musical Instrument Repairer: Daniel Rosado MD Lymphocytes/100 WBC (Bld) 14 % Low 24-43 [facility] Comment on above: Performed By: #### C DP, PTT, PT, CP #### [address] [address] Electronic Musical Instrument Repairer: Daniel Rosado MD MCH (RBC) [Entitic mass] 32.9 pg Normal 25.2-33.5 [facility] Comment on above: Performed By: #### C DP, PTT, PT, CP #### [address] [address] Electronic Musical Instrument Repairer: Daniel Rosado MD MCHC (RBC) [Mass/Vol] 33.5 g/dL Normal 28.4-34.8 [facility] Comment on above: Performed By: #### C DP, PTT, PT, CP #### [address] [address] Electronic Musical Instrument Repairer: Daniel Rosado MD MCV (RBC) [Entitic vol] 98.0 fL Normal 82.6-102.9 [facility] Comment on above: Performed By: #### C DP, PTT, PT, CP #### [address] [address] Electronic Musical Instrument Repairer: Daniel Rosado MD Monocytes (Bld) [#/Vol] 0.86 10*3/uL Normal 0.10-1.20 [facility] Comment on above: Performed By: #### C DP, PTT, PT, CP #### [address] [address] Electronic Musical Instrument Repairer: Daniel Rosado MD Monocytes/100 WBC (Bld) 12 % Normal 3-12 M [facility] Comment on above: Performed By: #### C DP, PTT, PT, CP #### [address] [address] Electronic Musical Instrument Repairer: Daniel Rosado MD Neutrophil (Seg) 70 % High 36-65 [facility] Comment on above: Performed By: #### C DP, PTT, PT, CP #### [address] [address] Electronic Musical Instrument Repairer: Daniel Rosado MD NRBC Automated 0.0 per 100 WBC Normal 0.0 [facility] Comment on above: Performed By: #### C DP, PTT, PT, CP #### [address] [address] Electronic Musical Instrument Repairer: Daniel Rosado MD Platelet mean volume (Bld) [Entitic vol] 8.9 fL Normal 8.1-13.5 [facility] Comment on above: Performed By: #### C DP, PTT, PT, CP #### [address] [address] Electronic Musical Instrument Repairer: Daniel Rosado MD Platelets (Bld) [#/Vol] 240 10*3/uL Normal 138-453 [facility] Comment on above: Performed By: #### C DP, PTT, PT, CP #### [address] [address] Electronic Musical Instrument Repairer: Daniel Rosado MD RBC (Bld) [#/Vol] 3.50 10*6/uL Low 4.21-5.77 [facility] Comment on above: Performed By: #### C DP, PTT, PT, CP #### [address] [address] Electronic Musical Instrument Repairer: Daniel Rosado MD WBC (Bld) [#/Vol] 7.3 10*3/uL Normal 3.5-11.3 [facility] Comment on above: Performed By: #### C DP, PTT, PT, CP #### [address] [address] Electronic Musical Instrument Repairer: Daniel Rosado MD PTon 03-12-2024 INR Coag (PPP) [Relative time] 1.0 {INR} Normal [facility] Comment on above: Result Comment: Therapeutic Range: Moderate Anticoagulant Intensity: INR = 2.0-3.0 High Anticoagulant Intensity: INR = 2.5-3.5 Performed By: #### C DP, PTT, PT, CP #### [address] [place], [place] [id number] Electronic Musical Instrument Repairer: Daniel Rosado MD PT Coag (PPP) [Time] 13.0 s Normal 11.7-14.9 [facility] Comment on above: Performed By: #### C DP, PTT, PT, CP #### [address] [place], [place] [id number] Electronic Musical Instrument Repairer: Daniel Rosado MD 36on 01-18-2024 36 Regarding echo, GEETHA' s and lipid results: MD Rasheeda Godwin MA His echo, ABIs, and lipids are all okay. Follow-up in 6 months. Patient informed. [facility] Office Visiton 12-26-2023 Follow-up visit [id number] Huy Osei 1950 M Date Provider Department [place] 12/26/2023 ARON ONEAL [facility] Family History Problem Relation Age of Onset Cancer Mother Cancer Brother Diabetes Paternal Grandmother Family Status - Relation Status Age at Mother Brother Paternal Grandmother Level of Service:79623 [place] OFFICE/OUTPATIENT ESTABLISHED MOD MDM 30 MIN [facility] TESTOSTERONE, TOTALon 2022 Testosterone [Mass/Vol] 215 ng/dL Critically low 264-916 [facility] Comment on above: Result Comment: Adul t male reference interval is based on a population of healthy nonobese males (BMI <30) between 19 and 39 years old. ashley Lee.al. JCEM 2017,102;8903-4918. PMID: [id number]. Performed By: #### T ESTTOT #### [facility] [address] [place] [address] Dr. Marilin Rothman CBC AUTO DIFFon 01-13-2023 BASO # 0.0 103/ul Normal 0.0-0.1 [facility] Comment on above: Performed By: #### T SH, BMP #### [facility] [address] [place] [address] Dr. Marilin Rothman Basophils/100 WBC (Bld) 0.3 % Normal 0.2-2.0 [facility] Comment on above: Performed By: #### T SH, BMP #### [facility] [address] [place] [address] Dr. Marilin Rothman EO # 0.0 103/ul Normal 0.0-0.7 [facility] Comment on above: Performed By: #### T SH, BMP #### [facility] [address] [place] [address] Dr. aMrilin Rothman Eosinophils/100 WBC (Bld) 0.2 % Critically low 0.9-7.0 [facility] Comment on above: Performed By: #### T SH, BMP #### [facility] [address] [place] [address] Dr. Marilin Rothman Erythrocyte distribution width (RBC) [Ratio] 13.3 % Normal 11.0-15.0 [facility] Comment on above: Performed By: #### T SH, BMP #### [facility] [address] [place] [address] Dr. Marilin Rothman Hematocrit (Bld) [Volume fraction] 38.2 % Critically low 42.0-54.0 [facility] Comment on above: Performed By: #### T SH, BMP #### [facility] [address] [place] [address] Dr. Marilin Rothman Hemoglobin (Bld) [Mass/Vol] 13.1 g/dL Critically low 14.0-18.0 [facility] Comment on above: Performed By: #### T SH, BMP #### [facility] [address] [place] [address] Dr. Marilin Rothman IG # 0.08 10e3/ul Critically high 0.00-0.03 [facility] Comment on above: Performed By: #### T SH, BMP #### [facility] [address] [place] [address] [address] Marilin Rothman IG % 0.8 % Critically high 0.0-0.5 [facility] Comment on above: Performed By: #### T SH, BMP #### [facility] [address] [place] [address] [address] Marilin Rothman LYMPH # 1.0 103/ul Critically low 1.2-3.8 [facility] Comment on above: Performed By: #### T SH, BMP #### [facility] [address] [place] [address] Dr. Marilin Rothman Lymphocytes/100 WBC (Bld) 10.1 % Critically low 20.5-60.0 [facility] Comment on above: Performed By: #### T SH, BMP #### [facility] [address] [place] [address] Dr. Marilin Rothman MANUAL DIFF REQ NO Normal [facility] Comment on above: Performed By: #### T SH, BMP #### [facility] [address] [place] [address] Dr. Marilin Rothman MCH (RBC) [Entitic mass] 32.8 pg Normal 25.9-34.0 [facility] Comment on above: Performed By: #### T SH, BMP #### [facility] [address] [place] [address] Dr. Marilin Rothman MCHC (RBC) [Mass/Vol] 34.3 g/dL Normal 29.9-35.2 [facility] Comment on above: Performed By: #### T SH, BMP #### [facility] [address] [place] [address] Dr. Marilin Rothman MCV (RBC) [Entitic vol] 95.7 fL Critically high 80.0-94 .0 [facility] Comment on above: Performed By: #### T SH, BMP #### [facility] [address] [place] [address] Dr. Marilin Rothman MONO # 0.8 103/ul Normal 0.3-0.8 [facility] Comment on above: Performed By: #### T SH, BMP #### [facility] [address] [place] [address] [address] Marilin Rothman Monocytes/100 WBC (Bld) 8.1 % Normal 1.7-12.0 [facility] Comment on above: Performed By: #### T SH, BMP #### [facility] [address] [place] [address] Dr. Marilin Rothman NEUT # 7.6 103/ul Critically high 1.4-6.5 [facility] Comment on above: Performed By: #### T SH, BMP #### [facility] [address] [place] [address] Dr. Marilin Rothman Neutrophils/100 WBC (Bld) 80.5 % Critically high 43.0-75.0 [facility] Comment on above: Performed By: #### T SH, BMP #### [facility] [address] [place] [address] Dr. Marilin Rothman Platelet mean volume (Bld) [Entitic vol] 8.6 fL Critically low 9.5-13.5 [facility] Comment on above: Performed By: #### T SH, BMP #### [facility] [address] [place] [address] Dr. Marilin Rothman PLT 237 103/ul Normal 150-450 [facility] Comment on above: Performed By: #### T SH, BMP #### [facility] [address] [place] [address] Dr. Marilin Rothman RBC 3.99 106/ul Critically low 4.70-6.10 [facility] Comment on above: Performed By: #### T SH, BMP #### [facility] [address] [place] [address] Dr. Marilin Rothman WBC 9.4 103/ul Normal 4.0-11.0 [facility] Comment on above: Performed By: #### T SH, BMP #### [facility] [address] [place] [address] Dr. Marilin Rothman PROF CHEM 8 (BAS METB)on Anion gap [Moles/Vol] 7.8 mmol/L Normal [facility] Comment on above: Performed By: #### T SH, BMP #### [facility] [address] [place] [address] [address] Marilin Rothman Calcium [Mass/Vol] 9.9 mg/dL Normal 8.5-10.1 [facility] Comment on above: Performed By: #### T SH, BMP #### [facility] [address] [place] [address] [address] Marilin Rothman Chloride [Moles/Vol] 102 mmol/L Normal 98-107 [facility] Comment on above: Performed By: #### T SH, BMP #### [facility] [address] [place] [address] [address] Marilin Rothman CO2 [Moles/Vol] 31.8 mmol/L Normal 21.0-32.0 [facility] Comment on above: Performed By: #### T SH, BMP #### [facility] [address] [place] [address] Dr. Marilin Rothman Creatinine [Mass/Vol] 1.30 mg/dL Normal 0.70-1.30 [facility] Comment on above: Performed By: #### T SH, BMP #### [facility] [address] [place] [address] Dr. Marilin Rothman EGFR-AF EQUATORIAL GUINEAN >60 Normal >=60 [facility] Comment on above: Performed By: #### T SH, BMP #### [facility] [address] [place] [address] Dr. Marilin Rothman EGFR-NON AF EQUATORIAL GUINEAN 54 mL/min/1.73m2 Critically low >=60 [facility] Comment on above: Performed By: #### T SH, BMP #### [facility] [address] [place] [address] [address] Marilin Rothman Glucose [Mass/Vol] 110 mg/dL Critically high 74-106 [facility] Comment on above: Performed By: #### T SH, BMP #### [facility] [address] [place] [address] Dr. Marilin Rothman Potassium [Moles/Vol] 4.6 mmol/L Normal 3.5-5.1 [facility] Comment on above: Performed By: #### T SH, BMP #### [facility] [address] [place] [address] [address] Marilin Rothman Sodium [Moles/Vol] 137 mmol/L Normal 136-145 [facility] Comment on above: Performed By: #### T SH, BMP #### [facility] [address] [place] [address] Dr. Marilin Rothman Urea nitrogen [Mass/Vol] 18.0 mg/dL Normal 7.0-18.0 [facility] Comment on above: Performed By: #### T SH, BMP #### [facility] [address] [place] [address] Dr. Marilin Rothman Urea nitrogen/Creatinine [Mass ratio] 13.8 mg/mg Normal [facility] Comment on above: Performed By: #### T SH, BMP #### [facility] [address] [place] [address] Dr. Marilin Rothman TSHon 01-13-2023 TSH 0.951 uIU/mL Normal 0.358-3.740 [facility] Comment on above: Performed By: #### T SH, BMP #### [facility] [address] [place] [address] Dr. Marilin Rothman XR LSPINE W_OBLS AND [...] by: BRADY MORRIS Date: 2022-10-27 17:11 Normal [facility] CBC AUTO DIFFon 07-27-2022 BASO # 0.1 103/ul Normal 0.0-0.1 [facility] Comment on above: Performed By: #### T SH, BMP #### [facility] [address] [place] [address] Dr. Marilin Rothman Basophils/100 WBC (Bld) 0.8 % Normal 0.2-2.0 [facility] Comment on above: Performed By: #### T SH, BMP #### [facility] [facility] [address] [place] [address] Dr. Marilin Rothman EO # 0.1 103/ul Normal 0.0-0.7 [facility] Comment on above: Performed By: #### T SH, BMP #### [facility] [address] [place] [address] Dr. Marilin Rothman Eosinophils/100 WBC (Bld) 2.2 % Normal 0.9-7.0 [facility] Comment on above: Performed By: #### T SH, BMP #### [facility] [address] [place] [address] Dr. Marilin Rothman Erythrocyte distribution width (RBC) [Ratio] 13.2 % Normal 11.0-15.0 [facility] Comment on above: Performed By: #### T SH, BMP #### [facility] [address] [place] [address] Dr. Marilin Rothman Hematocrit (Bld) [Volume fraction] 38.6 % Critically low 42.0-54.0 [facility] Comment on above: Performed By: #### T SH, BMP #### [facility] [address] [place] [address] Dr. Marilin Rothman Hemoglobin (Bld) [Mass/Vol] 12.5 g/dL Critically low 14.0-18.0 [facility] Comment on above: Performed By: #### T SH, BMP #### [facility] [address] [place] [address] Dr. Marilin Rothman IG # 0.06 10e3/ul Critically high 0.00-0.03 [facility] Comment on above: Performed By: #### T SH, BMP #### [facility] [address] [address] [address] Marilin Rothman IG % 1.0 % Critically high 0.0-0.5 [facility] Comment on above: Performed By: #### T SH, BMP #### [facility] [address] [address] [address] Marilin Rothman LYMPH # 1.0 103/ul Critically low 1.2-3.8 [facility] Comment on above: Performed By: #### T SH, BMP #### [facility] [address] [address] [address] Marilin Rothman Lymphocytes/100 WBC (Bld) 15.9 % Critically low 20.5-60.0 [facility] Comment on above: Performed By: #### T SH, BMP #### [facility] [address] [place] [address] Dr. Marilin Rothman MANUAL DIFF REQ NO Normal [facility] Comment on above: Performed By: #### T SH, BMP #### [facility] [address] [place] [address] Dr. Marilin Rothman MCH (RBC) [Entitic mass] 32.2 pg Normal 25.9-34.0 [facility] Comment on above: Performed By: #### T SH, BMP #### [facility] [address] [place] [address] Dr. Marilin Rothman MCHC (RBC) [Mass/Vol] 32.4 g/dL Normal 29.9-35.2 [facility] Comment on above: Performed By: #### T SH, BMP #### [facility] [address] [place] [address] Dr. Marilin Rothman MCV (RBC) [Entitic vol] 99.5 fL Critically high 80.0-94 .0 [facility] Comment on above: Performed By: #### T SH, BMP #### [facility] [address] [address] [address] Marilin Rothman MONO # 0.8 103/ul Normal 0.3-0.8 [facility] Comment on above: Performed By: #### T SH, BMP #### [facility] [address] [address] [address] Marilin Rothman Monocytes/100 WBC (Bld) 12.9 % Critically high 1.7-12. 0 [facility] Comment on above: Performed By: #### T SH, BMP #### [facility] [address] [place] [address] Dr. Marilin Rothman NEUT # 4.2 103/ul Normal 1.4-6.5 [facility] Comment on above: Performed By: #### T SH, BMP #### [facility] [address] [address] [address] Marilin Rothman Neutrophils/100 WBC (Bld) 67.2 % Normal 43.0-75.0 [facility] Comment on above: Performed By: #### T SH, BMP #### [facility] [address] [place] [address] Dr. Marilin Rothman Platelet mean volume (Bld) [Entitic vol] 9.3 fL Critically low 9.5-13.5 [facility] Comment on above: Performed By: #### T SH, BMP #### [facility] [address] [place] [address] Dr. Marilin Rothman PLT 260 103/ul Normal 150-450 [facility] Comment on above: Performed By: #### T SH, BMP #### [facility] [address] [place] [address] Dr. Marilin Rothman RBC 3.88 106/ul Critically low 4.70-6.10 [facility] Comment on above: Performed By: #### T SH, BMP #### [facility] [address] [place] [address] Dr. Marilin Rothman WBC 6.3 103/ul Normal 4.0-11.0 [facility] Comment on above: Performed By: #### T SH, BMP #### [facility] [address] [place] [address] Dr. Marilin Rothman LIPID PROFILEon 07-27-2022 CHOL-HDL RATIO NORM SEE BELOW Normal [facility] Comment on above: Result Comment: 3.3 - 4.4 LOW RISK 4.4 - 7.1 AVERAGE RISK 7.1 - 11.0 MODERATE RISK >11.0 HIGH RISK Performed By: #### T SH, BMP #### [facility] [address] [place] [address] Dr. Marilin Rothman Cholesterol [Mass/Vol] 155 mg/dL Normal <=200 [facility] Comment on above: Performed By: #### T SH, BMP #### [facility] [address] [address] [address] Marilin Rothman Cholesterol in HDL [Mass/Vol] 76 mg/dL Critically high 40-60 [facility] Comment on above: Performed By: #### T ALEXANDER, BMP #### [facility] [address] [place] [address] Dr. Marilin Rothman Cholesterol in LDL [Mass/Vol] 54.8 mg/dL Normal [facility] Comment on above: Performed By: #### T ALEXANDER, BMP #### [facility] [address] [place] [address] Dr. Marilin Rothman Cholesterol.total/Grace sterol in HDL [Mass ratio] 2.0 {ratio} Normal [facility] Comment on above: Performed By: #### T ALEXANDER, BMP #### [facility] [address] [place] [address] Dr. Marilin Rothman HDL NORMAL > or = 60 mg/dl - LO W CARDIOVASCULAR RISK <40 mg/dl - HIGH CARDIOVASCULAR RISK Normal [facility] Comment on above: Performed By: #### T ALEXANDER, BMP #### [facility] [address] [place] [address] Dr. Marilin Rothman LDL CALC NORMAL SEE BELOW Normal [facility] Comment on above: Result Comment: <100 mg/dl OPTIMAL 100 - 129 mg/dl NEAR OR ABOVE OPTIMAL 130 - 159 mg/dl BORDERLINE HIGH 160 - 189 mg/dl HIGH >190 mg/dl VERY HIGH Performed By: #### T ALEXANDER, BMP #### [facility] [address] [place] [address] Dr. Marilin Rothman Triglyceride [Mass/Vol] 121 mg/dL Normal <=150 [facility] Comment on above: Performed By: #### T SH, BMP #### [facility] [address] [place] [address] Dr. Marilin Rothman VLDL CALC 24.2 mg/dL Normal [facility] Comment on above: Performed By: #### T SH, BMP #### [facility] [address] [place] [address] Dr. Marilin Rothman LIVER PROFILEon 07-27-2022 Albumin [Mass/Vol] 3.9 g/dL Normal 3.4-5.0 [facility] Comment on above: Performed By: #### T SH, BMP #### [facility] [address] [place] [address] Dr. Marilin Rothman Albumin/Globulin [Mass ratio] 1.2 {ratio} Normal [facility] Comment on above: Performed By: #### T SH, BMP #### [facility] [address] [place] [address] Dr. Marilin Rothman ALP [Catalytic activity/Vol] 89 U/L Normal 46-116 [facility] Comment on above: Performed By: #### T SH, BMP #### [facility] [address] [place] [address] Dr. Marilin Rothman ALT [Catalytic activity/Vol] 26 U/L Normal 16-63 [facility] Comment on above: Performed By: #### T SH, BMP #### [facility] [address] [place] [address] Dr. Marilin Rothman AST [Catalytic activity/Vol] 17 U/L Normal 15-37 [facility] Comment on above: Performed By: #### T SH, BMP #### [facility] [address] [place] [address] Dr. Marilin Rothman BILI, CONJUGATED 0.2 mg/dL Normal 0.0-0.2 [facility] Comment on above: Performed By: #### T SH, BMP #### [facility] [address] [place] [address] Dr. Marilin Rothman Bilirubin [Mass/Vol] 0.6 mg/dL Normal 0.2-1.0 [facility] Comment on above: Performed By: #### T SH, BMP #### [facility] [address] [place] [address] Dr. Marilin Rothman Globulin (S) [Mass/Vol] 3.2 g/dL Normal [facility] Comment on above: Performed By: #### T SH, BMP #### [facility] [address] [place] [address] Dr. Marilin Rothman Protein [Mass/Vol] 7.1 g/dL Normal 6.4-8.2 [facility] Comment on above: Performed By: #### T SH, BMP #### [facility] [address] [place] [address] Dr. Marilin Rothman PROF CHEM 8 (BAS METB)on Anion gap [Moles/Vol] 13.7 mmol/L Normal [facility] Comment on above: Performed By: #### T SH, BMP #### [facility] [address] [place] [address] Dr. Marilin Rothman Calcium [Mass/Vol] 9.3 mg/dL Normal 8.5-10.1 [facility] Comment on above: Performed By: #### T SH, BMP #### [facility] [address] [place] [address] Dr. Marilin Rothman Chloride [Moles/Vol] 96 mmol/L Critically low 98-107 [facility] Comment on above: Performed By: #### T SH, BMP #### [facility] [address] [place] [address] Dr. Marilin Rothman CO2 [Moles/Vol] 25.9 mmol/L Normal 21.0-32.0 [facility] Comment on above: Performed By: #### T SH, BMP #### [facility] [address] [place] [address] Dr. Marilin Rothman Creatinine [Mass/Vol] 1.10 mg/dL Normal 0.70-1.30 [facility] Comment on above: Performed By: #### T SH, BMP #### [facility] [address] [place] [address] Dr. Marilin Rothman EGFR-AF EQUATORIAL GUINEAN >60 Normal >=60 [facility] Comment on above: Performed By: #### T SH, BMP #### [facility] [address] [address] [address] Marilin Rothman EGFR-NON AF EQUATORIAL GUINEAN >60 Normal >=60 [facility] Comment on above: Performed By: #### T SH, BMP #### [facility] [address] [address] [address] Marilin Rothman Glucose [Mass/Vol] 93 mg/dL Normal 74-106 [facility] Comment on above: Performed By: #### T SH, BMP #### [facility] [address] [address] [address] Marilin Rothman Potassium [Moles/Vol] 4.6 mmol/L Normal 3.5-5.1 [facility] Comment on above: Performed By: #### T SH, BMP #### [facility] [address] [place] [address] Dr. Marilin Rothman Sodium [Moles/Vol] 131 mmol/L Critically low 136-145 [facility] Comment on above: Performed By: #### T SH, BMP #### [facility] [address] [place] [address] Dr. Marilin Rothman Urea nitrogen [Mass/Vol] 14.0 mg/dL Normal 7.0-18.0 [facility] Comment on above: Performed By: #### T SH, BMP #### [facility] [address] [place] [address] Dr. Marilin Rothman Urea nitrogen/Creatinine [Mass ratio] 12.7 mg/mg Normal [facility] Comment on above: Performed By: #### T SH, BMP #### [facility] [address] [address] [address] Marilin Rothman TSHon 07-27-2022 TSH 1.933 uIU/mL Normal 0.358-3.740 [facility] Comment on above: Performed By: #### T SH, BMP #### [facility] [address] [place] [address] Dr. Marilin Rothman VITAMIN D 25 OHon 07-27-2022 VIT D 25-OH 85.4 ng/mL Normal [facility] Comment on above: Performed By: #### T SH, BMP #### [facility] [address] [place] [address] Dr. Marilin Rothman VIT D RANGES SEE BELOW Normal [facility] Comment on above: Result Comment: <20 ng/mL Vit D deficient 20 - <30 ng/mL Vit D insufficient 30 - 100 ng/mL Vit D sufficient >100 ng/mL Potential Toxicity Performed By: #### T SH, BMP #### [facility] [address] [place] [address] Dr. Marilin Rothman ACID FAST SMEAR AND CXon Acid Fast Culture Negative Normal [facility] Comment on above: Result Comment: No a amos fast bacilli isolated after 6 weeks. Performed By: #### T SH, BMP #### [facility] [address] [place] [address] Dr. Marilin Rothman Acid Fast Smear Negative Normal [facility] Comment on above: Performed By: #### T SH, BMP #### [facility] [address] [place] [address] Dr. Marilin Rothman [employer] Specimen Processing Direct Inoculation [facility] Comment on above: Performed By: #### T SH, BMP #### [facility] [address] [place] [address] Dr. Marilin Rothman FUNGAL CULTUREon 04-09-2022 Fungus (Mycology) Culture Final report Normal [facility] Comment on above: Performed By: #### C XFUN #### [facility] [address] [place] [address] Dr. Marilin Rothman Fungus Stain Final report Normal [facility] Comment on above: Performed By: #### C XFUN #### [facility] [address] [place] [address] Dr. Marilin Rothman Result 1 Comment Normal [facility] Comment on above: Result Comment: RITA/ Calcofluor preparation: no fungus observed. Performed By: #### C XFUN #### [facility] [address] [place] [address] Dr. Marilin Rothman Result Comment: No y east or mold isolated after 4 weeks. LOWER RESPIRATORY CULTUREon 03-14-2022 Lower Respiratory Culture Final report Normal [facility] Comment on above: Performed By: #### C XLORES #### [facility] [address] [place] [address] Dr. Marilin Rothman Result 1 Comment Normal [facility] Comment on above: Result Comment: Rout ine respiratory carlito Performed By: #### C XLORES #### [facility] [address] [address] [address] Marilin Rothman CYTOLOGYon 03-11-2022 SENT TO REF LAB 03/12/[address] [facility] Comment on above: Performed By: #### C YTO #### [facility] [address] [place] [address] Dr. Marilin Rothman GRAM STAINon 03-11-2022 COMMENTS NO ORGANISMS OBSERVED Normal [facility] Comment on above: Performed By: #### G STAIN #### [facility] [address] [place] [address] Dr. Marilin Rothman DIPHTHEROIDS Normal [facility] Comment on above: Performed By: #### G STAIN #### [facility] [address] [place] [address] Dr. Marilin Rothman EPITHELIALS FEW Normal [facility] Comment on above: Performed By: #### G STAIN #### [facility] [address] [place] [address] Dr. Marilin Rothman FUNGAL ELEMENTS Normal [facility] Comment on above: Performed By: #### G STAIN #### [facility] [address] [place] [address] Dr. Marilin Rothman GRAM NEG BACILLI Normal [facility] Comment on above: Performed By: #### G STAIN #### [facility] [address] [place] [address] Dr. Marilin MCCORMACK NEG DIPPLOCOCCI Normal [facility] Comment on above: Performed By: #### G STAIN #### [facility] [address] [place] [address] Dr. Marilin Rothman GRAM POS BACILLI [facility] Comment on above: Performed By: #### G STAIN #### [facility] [address] [place] [address] Dr. Marilin Rothman GRAM POSITIVE COCCI Normal [facility] Comment on above: Performed By: #### G STAIN #### [facility] [address] [place] [address] Dr. Marilin Rothman GRAM STAIN SOURCE R. LOWER LOBE LAVAGE [facility] Comment on above: Performed By: #### G STAIN #### [facility] [address] [place] [address] Dr. Marilin Rothman GS_DIPTH [facility] Comment on above: Performed By: #### G STAIN #### [facility] [address] [place] [address] Dr. Marilin Rothman WBC FEW [facility] Comment on above: Performed By: #### G STAIN #### [facility] [address] [place] [address] Dr. Marilin Rothman IMMUNOGLOBULIN E, TOTALon Immunoglobulin E, Total 129 IU/mL Normal 6-495 [facility] Comment on above: Performed By: #### I GETOT #### [facility] [address] [place] [address] Dr. Marilin Rothman CBC AUTO DIFFon 03-01-2022 BASO # 0.1 103/ul Normal 0.0-0.1 [facility] Comment on above: Performed By: #### T SH, BMP #### [facility] [address] [place] [address] Dr. Marilin Rothman Basophils/100 WBC (Bld) 0.9 % Normal 0.2-2.0 [facility] Comment on above: Performed By: #### T SH, BMP #### [facility] [address] [place] [address] Dr. Marilin Rothman EO # 0.7 103/ul Normal 0.0-0.7 [facility] Comment on above: Performed By: #### T SH, BMP #### [facility] [address] [place] [address] Dr. Marilin Rothman Eosinophils/100 WBC (Bld) 9.2 % Critically high 0.9-7.0 [facility] Comment on above: Performed By: #### T SH, BMP #### [facility] [address] [place] [address] Dr. Marilin Rothman Erythrocyte distribution width (RBC) [Ratio] 13.0 % Normal 11.0-15.0 [facility] Comment on above: Performed By: #### T ALEXANDER, BMP #### [facility] [address] [place] [address] Dr. Marilin Rothman Hematocrit (Bld) [Volume fraction] 39.5 % Critically low 42.0-54.0 [facility] Comment on above: Performed By: #### T ALEXANDER, BMP #### [facility] [address] [place] [address] Dr. Marilin Rothman Hemoglobin (Bld) [Mass/Vol] 13.0 g/dL Critically low 14.0-18.0 [facility] Comment on above: Performed By: #### T ALEXANDER, BMP #### [facility] [address] [place] [address] Dr. Marilin Rothman IG # 0.03 10e3/ul Normal 0.00-0.03 [facility] Comment on above: Performed By: #### T ALEXANDER, BMP #### [facility] [address] [place] [address] Dr. Marilin Rothman IG % 0.4 % Normal 0.0-0.5 [facility] Comment on above: Performed By: #### T ALEXANDER, BMP #### [facility] [address] [place] [address] Dr. Marilin Rothman LYMPH # 1.1 103/ul Critically low 1.2-3.8 [facility] Comment on above: Performed By: #### T ALEXANDER, BMP #### [facility] [address] [place] [address] Dr. Marilin Rothman Lymphocytes/100 WBC (Bld) 14.2 % Critically low 20.5-60.0 [facility] Comment on above: Performed By: #### T ALEXANDER, BMP #### [facility] [address] [place] [address] Dr. Marilin Rothman MANUAL DIFF REQ NO Normal [facility] Comment on above: Performed By: #### T SH, BMP #### [facility] [address] [place] [address] Dr. Marilin Rothman MCH (RBC) [Entitic mass] 32.2 pg Normal 25.9-34.0 [facility] Comment on above: Performed By: #### T SH, BMP #### [facility] [address] [place] [address] Dr. Marilin Rothman MCHC (RBC) [Mass/Vol] 32.9 g/dL Normal 29.9-35.2 [facility] Comment on above: Performed By: #### T SH, BMP #### [facility] [address] [place] [address] Dr. Marilin Rothman MCV (RBC) [Entitic vol] 97.8 fL Critically high 80.0-94 .0 [facility] Comment on above: Performed By: #### T ALEXANDER, BMP #### [facility] [address] [place] [address] Dr. Marilin Rothman MONO # 0.9 103/ul Critically high 0.3-0.8 [facility] Comment on above: Performed By: #### T SH, BMP #### [facility] [address] [place] [address] Dr. Marilin Rothman Monocytes/100 WBC (Bld) 11.8 % Normal 1.7-12.0 [facility] Comment on above: Performed By: #### T SH, BMP #### [facility] [address] [place] [address] Dr. Marilin Rothman NEUT # 4.7 103/ul Normal 1.4-6.5 [facility] Comment on above: Performed By: #### T SH, BMP #### [facility] [address] [place] [address] Dr. Marilin Rothman Neutrophils/100 WBC (Bld) 63.5 % Normal 43.0-75.0 [facility] Comment on above: Performed By: #### T SH, BMP #### [facility] [address] [place] [address] Dr. Marilin Rothman Platelet mean volume (Bld) [Entitic vol] 8.7 fL Critically low 9.5-13.5 [facility] Comment on above: Performed By: #### T SH, BMP #### [facility] [address] [place] [address] Dr. Marilin Rothman PLT 250 103/ul Normal 150-450 [facility] Comment on above: Performed By: #### T SH, BMP #### [facility] [address] [place] [address] Dr. Marilin Rothman RBC 4.04 106/ul Critically low 4.70-6.10 The [facility] Comment on above: Performed By: #### T SH, BMP #### [facility] [address] [place] [address] Dr. Marilin Rothman WBC 7.5 103/ul Normal 4.0-11.0 The [facility] Comment on above: Performed By: #### T SH, BMP #### [facility] [address] [place] [address] Dr. Marilin Rothman PROTIMEon 03-01-2022 INR Coag (PPP) [Relative time] 0.97 {INR} Normal [facility] Comment on above: Performed By: #### T SH, BMP #### [facility] [address] [place] [address] Dr. Marilin Rothman INR GUIDELINES SEE BELOW Normal The [facility] Comment on above: Result Comment: TOAN RED INR: 2.0 - 3.0 CONDITIONS NOT LISTED BELOW 2.5 - 3.5 FOR PROSTHETIC HEART VALVE REPLACEMENT 2.5 - 3.5 RECURRENT THROMBOSIS Performed By: #### T SH, BMP #### [facility] [address] [place] [address] Dr. Marilin Rothman PT Coag (PPP) [Time] 10.5 s Normal 9.0-11.6 [facility] Comment on above: Performed By: #### T SH, BMP #### [facility] [address] [place] [address] Dr. Marilin Rothman PTTon 03-01-2022 aPTT Coag (Bld) [Time] 27.5 s Normal 22.3-36.2 Th e [facility] Comment on above: Performed By: #### T SH, BMP #### [facility] [address] [place] [address] Dr. Marilin Rothman ASPERGILLUS AB, QUANTITATIVE DIDon 02-28-2022 Aspergillus flavus Negative Normal Neg:<1:1 [facility] Comment on above: Performed By: #### T SH, BMP #### [facility] [address] [place] [address] Dr. Marilin Rothman Aspergillus fumigatus Negative Normal Neg:<1:1 [facility] Comment on above: Performed By: #### T SH, BMP #### [facility] [address] [place] [address] Dr. Marilin Rothman Aspergillus niger Negative Normal Neg:<1:1 [facility] Comment on above: Performed By: #### T SH, BMP #### [facility] [address] [place] [address] Dr. Marilin Rothman ANTI NEUTROPHIL CYTOPLASMIC AB (ANCA) PRon 02-26-2022 Antimyeloperoxidase (MPO) Abs <9.0 Normal 0.0-9.0 [facility] Comment on above: Result Comment: Perf ormed at: BN Performed By: #### A NCAP #### [facility] [address] [place] [address] Dr. Marilin Rothman Antiproteinase 3 (WA-3) Abs <3.5 Normal 0.0-3.5 [facility] Comment on above: Result Comment: Perf ormed at: BN Performed By: #### A NCAP #### [facility] [address] [place] [address] Dr. Marilin Rothman Atypical pANCA <1:20 Normal Neg:<1:20 [facility] Comment on above: Result Comment: The atypical pANCA pattern has been observed in a significant percentage of patients with ulcerative colitis, primary sclerosing cholangitis and autoimmune hepatitis. Performed at: CB Performed By: #### A NCAP #### [facility] [address] [place] [address] Dr. Marilin Rothman Cytoplasmic (C-ANCA) <1:20 Normal Neg:<1:20 [facility] Comment on above: Result Comment: Perf ormed at: CB Performed By: #### A NCAP #### [facility] [address] [address] [address] Marilin Rothman Perinuclear (P-ANCA) <1:20 Normal Neg:<1:20 [facility] Comment on above: Result Comment: The presence of positive fluorescence exhibiting P-ANCA or C-ANCA patterns alone is not specific for the diagnosis of Antwan's Granulomatosis (WG) or microscopic polyangiitis. Decisions about treatment should not be based solely on ANCA IFA results. The International ANCA Group Consensus recommends follow up testing of positive sera with both WA-3 and MPO-ANCA enzyme immunoassays. As many as 5% serum samples are positive only by EIA. Ref. AM J Clin Pathol 1999;111:507-513. Performed at: CB Performed By: #### A NCAP #### [facility] [address] LUNG CANCER SCREENINGon [...] BRADY MORRIS Date: 2022-02-24 11:30 Normal The [facility] PROF CHEM 8 (BAS METB)on Anion gap [Moles/Vol] 8.6 mmol/L Normal [facility] Comment on above: Performed By: #### B MP #### [facility] [address] [address] [address] Marilin Rotmhan Calcium [Mass/Vol] 9.0 mg/dL Normal 8.5-10.1 The [facility] Comment on above: Performed By: #### B MP #### [facility] [address] [address] [address] Marilin Rothman Chloride [Moles/Vol] 100 mmol/L Normal 98-107 [facility] Comment on above: Performed By: #### B MP #### [facility] [address] [address] [address] Marilin Rothman CO2 [Moles/Vol] 30.5 mmol/L Normal 21.0-32.0 The [facility] Comment on above: Performed By: #### B MP #### [facility] [address] [address] [address] Marilin Rothman Creatinine [Mass/Vol] 1.35 mg/dL Critically high 0.70-1.30 The [facility] Comment on above: Performed By: #### B MP #### [facility] [address] [address] [address] Marilin Rothman EGFR-AF EQUATORIAL GUINEAN >60 Normal >=60 The [facility] Comment on above: Performed By: #### B MP #### [facility] [address] [address] [address] Marilin Rothman EGFR-NON AF EQUATORIAL GUINEAN 52 mL/min/1.73m2 Critically low >=60 The [facility] Comment on above: Performed By: #### B MP #### [facility] [address] [address] [address] Marilin Rothman Glucose [Mass/Vol] 100 mg/dL Normal 74-106 [facility] Comment on above: Performed By: #### B MP #### [facility] [address] [address] [address] Marilin Rothman Potassium [Moles/Vol] 4.1 mmol/L Normal 3.5-5.1 [facility] Comment on above: Performed By: #### B MP #### [facility] [address] [address] [address] Marilin Rothman Sodium [Moles/Vol] 135 mmol/L Critically low 136-145 Th [facility] Comment on above: Performed By: #### B MP #### [facility] [address] [address] [address] Marilin Rothman Urea nitrogen [Mass/Vol] 13.0 mg/dL Normal 7.0-18.0 [facility] Comment on above: Performed By: #### B MP #### [facility] [address] [address] [address] Marilin Rothman Urea nitrogen/Creatinine [Mass ratio] 9.6 mg/mg Normal [facility] Comment on above: Performed By: #### B MP #### [facility] [address] [address] [address] Marilin Rothman Cardiovascular Lab Reporton 08-22-2020 Cardiovascular Lab Report [facility] Patient Name: Huy Osei [facility] MR #: [id number] Physician: Sanket Reyes M.D. Department of Service Date: 08/21/2020 Medicine Birthdate: 1950 Division of Room #: Cardiology Adult Cardiovascular Services [place] [address] Cardiovascular Laboratory Report CYBER SYSTEMS ADMINISTRATOR: Aron Anderson M.D. FINAL IMPRESSION: Successful angioplasty, [...] inner cannula was then exchanged for a 5-Singaporean sheath. Through the 5-Singaporean sheath, a Uni-Flush catheter was introduced into the abdominal aorta and the aortic bifurcation was traversed using a 0.035 hydrophilic guidewire. Next, the catheter was then placed in the right femoral artery and angiography was performed. A guidewire exchange was then performed removing the catheter and sheath and replacing these with a 6-Singaporean Renaldo through which a NaviCross was introduced [...] was achieved. Final angiography was performed. A 6-Singaporean Angio-Seal was deployed. Adequate hemostasis was achieved. [...] Reyes M.D. Date Trans: 08/22/2020 02:59 A/noreen [id number] cc: Pool Garcia M.D. [address] [facility] [address] [place] [facility] Cardiovascular Lab Reporton 05-06-2020 Cardiovascular Lab Report [facility] Patient Name: Huy Osei [facility] MR #: [id number] Physician: Aron Daniel of [facility] Medicine Service Date: 05/05/2020 Division of Birthdate: 1950 Cardiology Room #: 3CD [id number] Adult Cardiovascular Services [place] [address] Cardiovascular Laboratory Report INDICATION: The patient is [...] right superficial femoral artery. 6. Use of Winchester IVUS-guided reentry catheter. 7. 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 METHODS: Procedure was explained to the patient with risks and benefits. He signed informed consent. He was brought to engineering lab technician in a fasting state. The left groin area was prepped and draped in usual fashion. Using ultrasound guidance and micropuncture technique, the left common femoral artery was accessed. The inner cannula was advanced. Limited left femoral angiography was performed followed by upsizing to a 6-Singaporean x 11 cm sheath. Next, a 5-Singaporean Uni-Flush catheter was advanced and placed in the distal abdominal aorta. An angled Glidewire was then used to cross the aortoiliac bifurcation and the catheter was advanced to the level of the right common femoral artery and then over a Magic Torque wire, this was exchanged along with the access sheath to a 6-Singaporean x 55 cm Renaldo sheath. Right lower [...] At that time, we advanced an angled [place] catheter through the antegrade sheath over a straight Glidewire and we crossed subintimally proximally and advanced to the proximal to mid segment of the SFA. We advanced a informatics scientist 5 x 40 mm balloon and used that balloon to perform reverse CART technique with multiple inflations using that balloon as well as an [place] [employer] [place] 3.0 x 15 mm noncompliant balloon advanced through the retrograde wire for CART technique. Repeated multiple inflations and multiple attempts were performed at multiple levels. However, we were not able to join the 2 subintimal spaces and therefore, we abandoned this technique. We decided to go with the Winchester reentry catheter from the antegrade access. This was then advanced to the subintimal space in the mid SFA over a [place] wire and using the standard technique, we identified under intravascular ultrasound the true lumen and once this was positioned in the 12 o'clock position, the needle was advanced the appropriate amount and after 2 attempts, the [place] wire was able to advance into the true lumen. This was confirmed as the wire came in parallel with the retrograde wire. However, at this point, while trying to remove the Winchester catheter, the [place] wire got kinked and entangled, and we were not able to retrieve the Winchester catheter over the wire and we had to remove the both wire and Winchester catheter assembly together and therefore, lost access into the true lumen. We repeated this process again and we are able to advance the Winchester catheter into position and multiple attempts at this point were made to gain access into the true lumen, however, those failed and we had to retrieve the Winchester catheter and terminate the procedure at this time. The Winchester catheter and the Renaldo sheath were removed [...] He will be admitted for overnight observation. POWER PLANT ELECTRICIAN: Shahzad Caballero MD. TOTAL FLUORO TIME: 101.28 [...] Anderson M.D. Date Trans: 05/06/2020 05:57 A/noreen [id number] cc: Pool Garcia M.D. [address] [facility] [address] Normal The [facility] APTTon 04-17-2020 aPTT Coag (Bld) [Time] 27.5 s Normal 25.0-35.0 Th e [facility] Comment on above: Order Comment: This order is a replacement of the rejected order with accession [id number]. Result Comment: ALL RESULTS MUST BE INTERPRETED [...] PURPOSE. Performed By: #### 6 2586 #### [facility] [address] [place] [address], [facility] BASIC METABOLIC PANELon 03-25 Calcium [Mass/Vol] 8.4 mg/dL Low 8.6-10.3 [facility] Comment on above: Order Comment: No: D o not add to previous draw Performed By: #### 6 2586 #### [facility] [address] [place] [address], [place] Chloride [Moles/Vol] 98 mmol/L Normal 98-107 [facility] Comment on above: Order Comment: No: D o not add to previous draw Performed By: #### 6 2586 #### [facility] [address] [place] [address], [place] CO2 [Moles/Vol] 25 mmol/L Normal 21-31 [facility] Comment on above: Order Comment: No: D o not add to previous draw Performed By: #### 6 2586 #### [facility] [address] [place] [address], [place] Creatinine [Mass/Vol] 1.26 mg/dL Normal 0.70-1.30 [facility] Comment on above: Order Comment: No: D o not add to previous draw Performed By: #### 6 2586 #### [facility] [address] [place] [address], [place] GFR/1.73 sq M predicted among blacks MDRD (S/P/Bld) [Vol rate/Area] mL/min/{1.73_m2} Normal >60 [facility] Comment on above: Order Comment: No: D o not add to previous draw Result Comment: Calc ulation may not be valid for patients over 70 years Performed By: #### 6 2586 #### [facility] [address] [place] [address], [place] GFR/1.73 sq M predicted among non-blacks MDRD (S/P/Bld) [Vol rate/Area] 56 ml/min/1.73sq m Abnormal >60 [facility] Comment on above: Order Comment: No: D o not add to previous draw Result Comment: Calc ulation may not be valid for patients over 70 years Performed By: #### 6 2586 #### [facility] [address] [place] [address], [place] Glucose [Mass/Vol] 123 mg/dL High 70-100 [facility] Comment on above: Order Comment: No: D o not add to previous draw Performed By: #### 6 2586 #### [facility] [address] [place] [address], [facility] Potassium [Moles/Vol] 3.6 mmol/L Normal 3.5-5.1 [facility] Comment on above: Order Comment: No: D o not add to previous draw Performed By: #### 6 2586 #### [facility] [address] [place] [address], [place] Sodium [Moles/Vol] 129 mmol/L Low 136-145 [facility] Comment on above: Order Comment: No: D o not add to previous draw Performed By: #### 6 2586 #### [facility] [address] [place] [address], [facility] Urea nitrogen [Mass/Vol] 14 mg/dL Normal 7-25 [facility] Comment on above: Order Comment: No: D o not add to previous draw Performed By: #### 6 2586 #### [facility] [address] [place] [address], [facility] CBC COMPLETE BLOOD COUNTon 0 04-17-2020 Erythrocyte distribution width (RBC) [Ratio] 14.2 % Normal 11.5-15.0 [facility] Comment on above: Order Comment: No: D o not add to previous draw Performed By: #### 6 2586 #### [facility] [address] [place] [address], [facility] Hematocrit (Bld) [Volume fraction] 32.2 % Low 39.0-50.0 [facility] Comment on above: Order Comment: No: D o not add to previous draw Performed By: #### 6 2586 #### [facility] [address] [place] [address], [facility] Hemoglobin (Bld) [Mass/Vol] 10.8 g/dL Low 13.0-17.0 [facility] Comment on above: Order Comment: No: D o not add to previous draw Performed By: #### 6 2586 #### [facility] [address] [place] [address], [facility] MCH (RBC) [Entitic mass] 32.7 pg Normal 27.0-33.0 [facility] Comment on above: Order Comment: No: D o not add to previous draw Performed By: #### 6 2586 #### [facility] [address] [place] [id number], [facility] MCHC (RBC) [Mass/Vol] 33.5 g/dL Normal 32.0-35.0 [facility] Comment on above: Order Comment: No: D o not add to previous draw Performed By: #### 6 2586 #### [facility] [address] [place] [address], [facility] MCV (RBC) [Entitic vol] 97.6 fL Normal 82.0-98.0 T he [facility] Comment on above: Order Comment: No: D o not add to previous draw Performed By: #### 6 2586 #### [facility] [address] [place] [address], [facility] Nucleated RBC/100 WBC (Bld) [Ratio] 0 % Normal 0-0 [facility] Comment on above: Order Comment: No: D o not add to previous draw Performed By: #### 6 2586 #### [facility] [address] [place] [address], [facility] PLAT CNT 217 10*3/uL Normal 150-400 [facility] Comment on above: Order Comment: No: D o not add to previous draw Performed By: #### 6 2586 #### [facility] [address] [place] [address], [facility] RBC (Bld) [#/Vol] 3.30 10*6/uL Low 4.20-5.70 [facility] Comment on above: Order Comment: No: D o not add to previous draw Performed By: #### 6 2586 #### [facility] [address] WBC (Bld) [#/Vol] 7.83 10*3/uL Normal 4.00-10.60 [facility] Comment on above: Order Comment: No: D o not add to previous draw Performed By: #### 6 2586 #### [address] ABDOMEN AND PELVIS WO CON TRASTon 04-17-2020 CT ABDOMEN AND PELVIS WO CONTRAST [facility] Department of Radiology [address] [place] [phone] Patient Name: HUY OSEI : 1950 Sex: M Age: Race: White Pt. Location: [address] [place] [address] Patient Status: O Ordered Date: 04/17/2020 12:55:00 [...] reports Electronically signed: Eliud Mcguire. Transcribed by: [email or web address], User Resident: ALEXYS NELSON Electronically Signed by: ELIUD MCGUIRE @ 04/17/2020 02:34 AM I personally read this/these film(s) with this resident Normal [facility] Comment on above: Order Comment: Hemat alyssa, s/p cardiac cath, now hypotensive, r/o retroperitoneal bleed. Cardiovascular Lab Reporton 04-17-2020 Cardiovascular Lab Report [facility] Patient Name: Huy Osei [facility] MR #: [id number] Physician: Aron Daniel of [facility] Medicine Service Date: 04/16/2020 Division of Birthdate: 1950 Cardiology Room #: 3AB [id number] Adult Cardiovascular Services [facility] [address] [facility]. [place] [address] Cardiovascular Laboratory Report INDICATION: Huy Osei is [...] signed informed consent. He was brought to engineering lab technician in a fasting state. The left groin area was prepped and draped in usual fashion. Using micropuncture technique and ultrasound guidance, the left common femoral artery was accessed. The inner cannula was advanced, limited femoral angiography was performed followed by upsizing to a 5-Singaporean x 11 cm sheath. Left lower extremity angiography was performed down to the level of the foot. A 5-Singaporean UniFlush catheter was advanced and placed in [...] the catheter and access sheath to a 6-Singaporean Renaldo sheath. Using an angled Glidewire mounted [...] retracted and removed and exchanged to a 6-Singaporean x 11 cm sheath. The patient tolerated [...] Anderson M.D. Date Trans: 04/17/2020 06:23 A/noreen [id number] Normal [facility] LACTATE BLOODon 04-17-2020 Lactate [Moles/Vol] 0.9 mmol/L Normal 0.5-2.2 [facility] Comment on above: Order Comment: No: D o not add to previous draw Performed By: #### 6 2586 #### [facility] [address] PERFUSION BLOOD PANELon 03-25 BASE EXCESS 0.0 mmol/L Normal -2.0-3.0 [facility] Comment on above: Performed By: #### 3 4838 #### [facility] [address] [place] [address], [facility] Glucose [Mass/Vol] 118 mg/dL High 70-105 [facility] Comment on above: Performed By: #### 3 0738 #### [facility] [address] [place] [address], [facility] Hematocrit (Bld) [Volume fraction] 36 % Low 38-51 [facility] Comment on above: Performed By: #### 3 0738 #### [facility] [address] [place] [address], [facility] Hemoglobin (Bld) [Mass/Vol] 12.2 g/dL Normal 12.0-17.0 [facility] Comment on above: Performed By: #### 3 0738 #### [facility] [address] [place] [address], [facility] IONIZED CALCIUM 1.23 mmol/L Normal 1.12-1.32 [facility] Comment on above: Performed By: #### 3 0738 #### [facility] [address] [place] [address], [facility] Oxygen (Bld) [Partial pressure] 31.0 mm[Hg] Normal [facility] Comment on above: Performed By: #### 3 0738 #### [facility] [address] [place] [address], [facility] PCO2 42.2 mmHg Normal 41.0-51.0 [facility] Comment on above: Performed By: #### 3 0738 #### [facility] [address] [place] [address], [facility] pH (Bld) 7.38 [pH] Normal 7.31-7.41 [facility] Comment on above: Performed By: #### 3 0738 #### [facility] [address] [place] [address], [facility] Potassium [Moles/Vol] 3.9 mmol/L Normal 3.5-4.9 [facility] Comment on above: Performed By: #### 3 0738 #### [facility] [address] [place] [address], [facility] Sodium [Moles/Vol] 132 mmol/L Low 138-146 [facility] Comment on above: Performed By: #### 3 0738 #### [facility] [address] [facility]. [address] POC GLUCOSE LABon 04-17-2020 Glucose [Mass/Vol] 126 mg/dL High 70-100 [facility] Comment on above: Performed By: #### 8 5499 #### [facility] [address] [facility] [place] [address], [facility] PROTHROMBIN TIMEon 0 INR Coag (PPP) [Relative time] 1.02 {INR} Normal 0.91-1.16 [facility] Comment on above: Order Comment: This order is a replacement of the rejected order with accession [id number] PATIENT NOT IN ROOM; WENT TO CT. [...] 1995;108:231S-246S. Performed By: #### 6 2586 #### [facility] [address] [facility] [place] [address], [facility] PT Coag (PPP) [Time] 13.4 s Normal 12.3-14.8 [facility] Comment on above: Order Comment: This order is a replacement of the rejected order with accession [id number] PATIENT NOT IN ROOM; WENT TO CT. Result Comment: ALL RESULTS MUST BE INTERPRETED WITH RESPECT TO BLOOD DRAWING ARTIFACT OR DILUTION ERROR OF ANTICOAGULANT AT THE TIME OF SAMPLING. Performed By: #### 6 6 #### [facility] 3000 [facility]. [address] TROPONIN-Ion 04-17-2020 Troponin I.cardiac [Mass/Vol] 0.01 ng/mL Normal 0.00-0.04 [facility] Comment on above: Order Comment: No: D o not add to previous draw Result Comment: REFE RENCE RANGES: 0.00 - 0.04 ng/ml NORMAL 0.05 - 0.50 ng/ml INDETERMINATE > 0.50 ng/ml CONSISTENT WITH AN M.I. Performed By: #### 6 2585 #### [facility] [address] TYPE AND SCREENon 04-17-2020 ABO INTERPRETATION A Normal [facility] Comment on above: Performed By: #### 0 2024 #### [facility] [address] [facility]. [address] RH INTERPRETATION Positive Normal [facility] Comment on above: Performed By: #### 0 2024 #### [facility] [address] [facility]. [address] C REACTIVE PROTEINon 020 CRP [Mass/Vol] 13.5 mg/L High 0.0-7.0 [facility] Comment on above: Performed By: #### 0 2024 #### [facility] [address] [facility]. [address] CBC W/DIFFon 12-12-2019 ABS BASOPHILS 0.1 10*3/uL Normal 0.0-0.2 [facility] Comment on above: Performed By: #### 5 0103, [id number] #### [facility] [address] [place] [address], [facility] ABS IMM GRANS 0.1 10*3/uL Normal 0.0-0.2 [facility] Comment on above: Performed By: #### 5 102, [id number] #### [facility] [address] [place] [address], [facility] ABS NEUTROPHILS 4.3 10*3/uL Normal 1.6-7.6 [facility] Comment on above: Performed By: #### 5 102, 40326 #### [facility] [address] [place] [address], [facility] Basophils/100 WBC (Bld) 0.8 % Normal 0.0-1.0 T [facility] Comment on above: Performed By: #### 5 102, 40793 #### [facility] [address] [place] [id number], [facility] Eosinophils (Bld) [#/Vol] 0.3 10*3/uL Normal 0.0-0.5 [facility] Comment on above: Performed By: #### 5 102, 72757 #### [facility] [address] [place] [address], [facility] Eosinophils/100 WBC (Bld) 4.6 % Normal 0.0-6.0 [facility] Comment on above: Performed By: #### 5 102, 60093 #### [facility] [address] [place] [address], [facility] Erythrocyte distribution width (RBC) [Ratio] 14.0 % Normal 11.5-15.0 [facility] Comment on above: Performed By: #### 5 102, 81066 #### [facility] [address] [place] [address], [facility] Hematocrit (Bld) [Volume fraction] 36.9 % Low 39.0-50.0 [facility] Comment on above: Performed By: #### 5 102, 57716 #### [facility] [address] [place] [address], [facility] Hemoglobin (Bld) [Mass/Vol] 12.2 g/dL Low 13.0-17.0 [facility] Comment on above: Performed By: #### 5 102, 39639 #### [facility] [address] [facility] [place] [address], [facility] IMMATURE GRANS 0.9 % Normal 0.0-1.0 [facility] Comment on above: Performed By: #### 5 102, 12273 #### [facility] [address] [facility]. [address] Lymphocytes (Bld) [#/Vol] 1.0 10*3/uL Low 1.2-4.0 [facility] Comment on above: Performed By: #### 5 102, 27433 #### [facility] [address] Lymphocytes/100 WBC (Bld) 15.5 % Low 20.0-45.0 [facility] Comment on above: Performed By: #### 102, 78356 #### [facility] [address] [place] [address], [facility] MCH (RBC) [Entitic mass] 30.9 pg Normal 27.0-33.0 [facility] Comment on above: Performed By: #### 5 102, 17786 #### [facility] [address] [facility] [place] [address], [facility] MCHC (RBC) [Mass/Vol] 33.1 g/dL Normal 32.0-35.0 [facility] Comment on above: Performed By: #### 5 102, 73513 #### [facility] [address] [facility] [place] [address], [facility] MCV (RBC) [Entitic vol] 93.4 fL Normal 82.0-98.0 T [facility] Comment on above: Performed By: #### 102, 43769 #### [facility] [address] [place] [address], [facility] Monocytes (Bld) [#/Vol] 0.7 10*3/uL Normal 0.1-1.0 [facility] Comment on above: Performed By: #### 5 010, 49849 #### [facility] [address] [place] [id number], [facility] MONOS 10.3 % Normal 5.0-12.0 [facility] Comment on above: Performed By: #### 5 102, 21280 #### [facility] [address] [place] [id number], [facility] Neutrophils/100 WBC (Bld) 67.9 % Normal 40.0-72.0 [facility] Comment on above: Performed By: #### 5 102, 67438 #### [facility] [address] [facility] [place] [address], [facility] Nucleated RBC/100 WBC (Bld) [Ratio] 0 % Normal 0-0 [facility] Comment on above: Performed By: #### 5 102, 38432 #### [facility] [address] [place] [address], [facility] PLAT CNT 215 10*3/uL Normal 150-400 [facility] Comment on above: Performed By: #### 5 102, 31182 #### [facility] [address] [place] [address], [facility] RBC (Bld) [#/Vol] 3.95 10*6/uL Low 4.20-5.70 [facility] Comment on above: Performed By: #### 5 102, 89813 #### [facility] [place] [id number], [facility] WBC (Bld) [#/Vol] 6.33 10*3/uL Normal 4.00-10.60 [facility] Comment on above: Performed By: #### 5 102, 39388 #### [facility] [address] SEDIMENTATION RATEon 020 SED RATE 30 mm/hr High 0-10 [facility] Comment on above: Performed By: #### 0 2024 #### [facility] [address] Operative Reporton 0 Operative Report MR#: [id number] S [facility] Pt. Name: Huy Osei Room #: 0C [...] edges using a scalpel followed by a [place] and curette. We debrided down to the [...] Waddell MD Date Trans: 11/26/2019 11:48 P/noreen [id number] Normal [facility] APTTon 11-26-2019 aPTT Coag (Bld) [Time] 29.8 s Normal 25.0-35.0 Th e [facility] Comment on above: Result Comment: ALL RESULTS [...] PURPOSE. Performed By: #### 0 2024 #### [facility] [address] POC GLUCOSE LABon 11-26-2019 Glucose [Mass/Vol] 100 mg/dL Normal 70-100 [facility] Comment on above: Performed By: #### 8 6002 #### [facility] 3000 [facility]. [address] PROTHROMBIN TIMEon 0 INR Coag (PPP) [Relative time] 0.99 {INR} Normal 0.91-1.16 [facility] Comment on above: Result Comment: ACCC P [...] 1995;[id number]. Performed By: #### 0 2024 #### [facility] [address] [place] [address], [facility] PT Coag (PPP) [Time] 13.1 s Normal 12.3-14.8 [facility] Comment on above: Result Comment: ALL RESULTS MUST BE INTERPRETED WITH RESPECT TO BLOOD DRAWING ARTIFACT OR DILUTION ERROR OF ANTICOAGULANT AT THE TIME OF SAMPLING. Performed By: #### 0 2024 #### [facility] [address] [place] [address], [facility] VANCOMYCIN TROUGHon 11-12-19 20 VANCOMYCIN TROU 9.0 mcg/mL Normal 5.0-20.0 [facility] Comment on above: Performed By: #### 0 2024 #### [facility] [address] [place] [address], [facility] BASIC METABOLIC PANELon 10-24 Calcium [Mass/Vol] 9.1 mg/dL Normal 8.6-10.3 [facility] Comment on above: Order Comment: Yes: Add to Previous draw if able Performed By: #### 0 2024 #### [facility] [address] [place] [address], [facility] Chloride [Moles/Vol] 100 mmol/L Normal 98-107 [facility] Comment on above: Order Comment: Yes: Add to Previous draw if able Performed By: #### 0 2024 #### [facility] [address] [place] [address], [facility] CO2 [Moles/Vol] 26 mmol/L Normal 21-31 [facility] Comment on above: Order Comment: Yes: Add to Previous draw if able Performed By: #### 2024 #### [facility] [address] [place] [address], [facility] Creatinine [Mass/Vol] 1.22 mg/dL Normal 0.70-1.30 [facility] Comment on above: Order Comment: Yes: Add to Previous draw if able Performed By: #### 0 2024 #### [facility] [address] [place] [address], [facility] GFR/1.73 sq M predicted among blacks MDRD (S/P/Bld) [Vol rate/Area] mL/min/{1.73_m2} Normal >60 [facility] Comment on above: Order Comment: Yes: Add to Previous draw if able Result Comment: Calc ulation may not be valid for patients over 70 years Performed By: #### 0 2024 #### [facility] [address] [place] [address], [facility] GFR/1.73 sq M predicted among non-blacks MDRD (S/P/Bld) [Vol rate/Area] 59 ml/min/1.73sq m Abnormal >60 [facility] Comment on above: Order Comment: Yes: Add to Previous draw if able Result Comment: Calc ulation may not be valid for patients over 70 years Performed By: #### 0 2024 #### [facility] [address] [place] [address], [place] Glucose [Mass/Vol] 97 mg/dL Normal 70-100 [facility] Comment on above: Order Comment: Yes: Add to Previous draw if able Performed By: #### 0 2024 #### [facility] [address] [place] [address], [place] Potassium [Moles/Vol] 4.0 mmol/L Normal 3.5-5.1 [facility] Comment on above: Order Comment: Yes: Add to Previous draw if able Performed By: #### 0 2024 #### [facility] [address] [place] [address], [place] Sodium [Moles/Vol] 132 mmol/L Low 136-145 [facility] Comment on above: Order Comment: Yes: Add to Previous draw if able Performed By: #### 0 2024 #### [facility] [address] [place] [address], [place] Urea nitrogen [Mass/Vol] 17 mg/dL Normal 7-25 [facility] Comment on above: Order Comment: Yes: Add to Previous draw if able Performed By: #### 0 2024 #### [facility] [address] [place] [address], [place] CBC COMPLETE BLOOD COUNTon 0 - Erythrocyte distribution width (RBC) [Ratio] 14.2 % Normal 11.5-15.0 [facility] Comment on above: Order Comment: Yes: Add to Previous draw if able Performed By: #### 6 2586 #### [facility] [address] [place] [address], [facility] Hematocrit (Bld) [Volume fraction] 32.5 % Low 39.0-50.0 [facility] Comment on above: Order Comment: Yes: Add to Previous draw if able Performed By: #### 6 2586 #### [facility] [address] [place] [address], [facility] Hemoglobin (Bld) [Mass/Vol] 10.4 g/dL Low 13.0-17.0 [facility] Comment on above: Order Comment: Yes: Add to Previous draw if able Performed By: #### 6 2586 #### [facility] [address] [place] [address], [facility] MCH (RBC) [Entitic mass] 31.7 pg Normal 27.0-33.0 [facility] Comment on above: Order Comment: Yes: Add to Previous draw if able Performed By: #### 6 2586 #### [facility] [address] [place] [address], [facility] MCHC (RBC) [Mass/Vol] 32.0 g/dL Normal 32.0-35.0 [facility] Comment on above: Order Comment: Yes: Add to Previous draw if able Performed By: #### 6 2586 #### [facility] [address] [place] [address], [facility] MCV (RBC) [Entitic vol] 99.1 fL High 82.0-98.0 T he [facility] Comment on above: Order Comment: Yes: Add to Previous draw if able Performed By: #### 6 2586 #### [facility] [address] [place] [address], [place] Nucleated RBC/100 WBC (Bld) [Ratio] 0 % Normal 0-0 [facility] Comment on above: Order Comment: Yes: Add to Previous draw if able Performed By: #### 6 2586 #### [facility] [address] [place] [address], [facility] PLAT CNT 231 10*3/uL Normal 150-400 [facility] Comment on above: Order Comment: Yes: Add to Previous draw if able Performed By: #### 6 2586 #### [facility] [address] [place] [address], [facility] RBC (Bld) [#/Vol] 3.28 10*6/uL Low 4.20-5.70 [facility] Comment on above: Order Comment: Yes: Add to Previous draw if able Performed By: #### 6 2586 #### [facility] [address] [place] [address], [facility] WBC (Bld) [#/Vol] 8.34 10*3/uL Normal 4.00-10.60 [facility] Comment on above: Order Comment: Yes: Add to Previous draw if able Performed By: #### 6 2586 #### [facility] 3000 [facility]. [address] Operative Reporton 0 Operative Report MR#: [id number] I [facility] Pt. Name: Huy Osei Room #: [id number] Discharge Date: Birthdate: 1950 OPERATIVE REPORT DATE OF SURGERY: 11/10/2019 SURGEON: Andrews Collier M.D. [employer] ADMINISTRATOR: Jose Charles MD PREOPERATIVE DIAGNOSIS: Right knee [...] immediately available to assist. Date Dict: 11/11/2019/08:28 A/Jose Charles MD Date Trans: 11/11/2019 09:49 A/noreen [id number] cc: Andrews Collier M.D. 3000 [facility] Dept. Of Orthopaedic Surgery [place] [address] Normal [facility] *ANAEROBIC CULTUREon 020 *ANAEROBIC CULTURE Clinical Report: (D) Specimen/Source: TISSUE/INTRAOP SPEC Collected: 11/10/2019 08:50 Status: Final Last Updated: 11/15/2019 07:46 (1) #3 R. KNEE SYNOVIUM #2 CULT RES (Final) No Anaerobes Isolated 5 Days Normal [facility] Comment on above: Order Comment: #3 R. KNEE SYNOVIUM #2 Performed By: #### 8 6002 #### [facility] 3000 [facility]. [address] *ANAEROBIC CULTURE Clinical Report: (D) Specimen/Source: TISSUE/INTRAOP SPEC Collected: 11/10/2019 08:44 Status: Final Last Updated: 11/15/2019 07:46 (1) #2 R. KNEE SYNOVIUM #1 CULT RES (Final) No Anaerobes Isolated 5 Days Normal [facility] Comment on above: Order Comment: #2 R. KNEE SYNOVIUM #1 Performed By: #### 3 0312 #### [facility] [address] [facility] [place] [address], [facility] *ANAEROBIC CULTURE Clinical Report: (D) Specimen/Source: SWAB/INTRAOP SPEC Collected: 11/10/2019 08:43 Status: Final Last Updated: 11/15/2019 07:46 (1) #1 R. KNEE SYNOVIAL FLUID ON SWAB CULT RES (Final) No Anaerobes Isolated 5 Days Normal [facility] Comment on above: Order Comment: #1 R. KNEE SYNOVIAL FLUID ON SWAB Performed By: #### 8 6002 #### [facility] [address] [facility] [place] [address], [facility] *BODY FLUID CULTUREon 2019 *BODY FLUID CULTURE Clinical Report: (D) Specimen/Source: FLUID/INTRAOP SPEC Collected: 11/10/2019 08:43 Status: Final Last Updated: 11/15/2019 10:58 (1) #1 R. KNEE SYNOVIAL FLUID ON SWAB GRAM (Final) Rare Polys No Bacteria Seen CULT RES (Final) No Growth Day 5 Normal [facility] Comment on above: Order Comment: #1 R. KNEE SYNOVIAL FLUID ON SWAB Performed By: #### 8 6002 #### [facility] [address] *TISSUE CULTUREon 11-10-2019 *TISSUE CULTURE Clinical Report: (D) Specimen/Source: TISSUE/INTRAOP SPEC Collected: 11/10/2019 08:50 Status: Final Last Updated: 11/15/2019 10:59 (1) #3 R. KNEE SYNOVIUM #2 GRAM (Final) Rare Polys No Bacteria Seen CULT RES (Final) No Growth Day 5 Normal [facility] Comment on above: Order Comment: #3 R. KNEE SYNOVIUM #2 Performed By: #### 8 6002 #### [facility] [address] *TISSUE CULTURE Clinical Report: (D) Specimen/Source: TISSUE/INTRAOP SPEC Collected: 11/10/2019 08:44 Status: Final Last Updated: 11/15/2019 10:58 (1) #2 R. KNEE SYNOVIUM #1 GRAM (Final) Rare Polys No Bacteria Seen CULT RES (Final) No Growth Day 5 Normal [facility] Comment on above: Order Comment: #2 R. KNEE SYNOVIUM #1 Performed By: #### 8 6002 #### [facility] [address] [place], [place] [id number] [place] [address] POC GLUCOSE LABon 11-10-2019 Glucose [Mass/Vol] 100 mg/dL Normal 70-100 [facility] Comment on above: Performed By: #### 8 6002 #### [facility] [address] [facility] [place] [address], [facility] TYPE AND SCREENon 11-10-2019 ABO INTERPRETATION A Normal [facility] Comment on above: Performed By: #### 6 4006 #### [facility] [address] [place] [address], [facility] RH INTERPRETATION Positive Normal [facility] Comment on above: Performed By: #### 6 2586 #### [facility] [address] [facility]. [place], [place] [id number] [place] [address] *MRSA/MSSA DNA NASALon 11-09 *MRSA/MSSA DNA NASAL Clinical Report: (D ) Specimen: NASAL SWAB Collected: 11/09/2019 19:00 Status: Final Last Updated: 11/10/2019 13:15 MSSA DNA (Final) Negative MRSA DNA (Final) Methicillin Resistant Staphylococcus aureus DNA Detected Normal [facility] Comment on above: Performed By: #### 8 [id number] #### [facility] [address] [facility] [place] [address], [facility] APTTon 11-09-2019 aPTT Coag (Bld) [Time] 29.3 s Normal 25.0-35.0 Th e [facility] Comment on above: Result Comment: ALL RESULTS [...] PURPOSE. Performed By: #### 6 2586 #### [facility] [address] [facility] [place] [address], [facility] BASIC METABOLIC PANELon 10-24 Calcium [Mass/Vol] 9.0 mg/dL Normal 8.6-10.3 [facility] Comment on above: Performed By: #### 0 0071 #### [facility] [address] [facility] [place] [address], [facility] Chloride [Moles/Vol] 94 mmol/L Low 98-107 [facility] Comment on above: Performed By: #### 0 0071 #### [facility] [address] [facility] [place] [place] [address], [facility] CO2 [Moles/Vol] 26 mmol/L Normal 21-31 [facility] Comment on above: Performed By: #### 0 0071 #### [facility] [address] [place] [address], [facility] Creatinine [Mass/Vol] 1.40 mg/dL High 0.70-1.30 [facility] Comment on above: Performed By: #### 0 0071 #### [facility] [address] [place] [address], [facility] GFR/1.73 sq M predicted among blacks MDRD (S/P/Bld) [Vol rate/Area] 60 ml/min/1.73sq m Abnormal >60 [facility] Comment on above: Result Comment: Calc ulation may not be valid for patients over 70 years Performed By: #### 0 0071 #### [facility] [address] [place] [address], [facility] GFR/1.73 sq M predicted among non-blacks MDRD (S/P/Bld) [Vol rate/Area] 50 ml/min/1.73sq m Abnormal >60 [facility] Comment on above: Result Comment: Calc ulation may not be valid for patients over 70 years Performed By: #### 0 0071 #### [facility] [address] [place] [address], [facility] Glucose [Mass/Vol] 106 mg/dL High 70-100 [facility] Comment on above: Performed By: #### 0 0071 #### [facility] [address] [place] [address], [place] Potassium [Moles/Vol] 3.9 mmol/L Normal 3.5-5.1 [facility] Comment on above: Performed By: #### 0 0071 #### [facility] [address] [place] [address], [place] Sodium [Moles/Vol] 128 mmol/L Low 136-145 [facility] Comment on above: Performed By: #### 0 0071 #### [facility] [address] [place] [address], [place] Urea nitrogen [Mass/Vol] 18 mg/dL Normal 7-25 [facility] Comment on above: Performed By: #### 0 0071 #### [facility] [address] [facility] [place] [address], [facility] CBC W/DIFFon 11-09-2019 ABS BASOPHILS 0.0 10*3/uL Normal 0.0-0.2 [facility] Comment on above: Performed By: #### 6 2586 #### [facility] [address] [facility] [place] [address], [facility] ABS IMM GRANS 0.1 10*3/uL Normal 0.0-0.2 [facility] Comment on above: Performed By: #### 6 2586 #### [facility] 3000 [facility]. [address] ABS NEUTROPHILS 4.9 10*3/uL Normal 1.6-7.6 [facility] Comment on above: Performed By: #### 6 2586 #### [facility] [address] [facility] [place] [address], [facility] Basophils/100 WBC (Bld) 0.3 % Normal 0.0-1.0 T he [facility] Comment on above: Performed By: #### 6 2586 #### [facility] [address] [facility] [place] [address], [facility] Eosinophils (Bld) [#/Vol] 0.1 10*3/uL Normal 0.0-0.5 [facility] Comment on above: Performed By: #### 6 2586 #### [facility] [address] [facility] [place] [address], [facility] Eosinophils/100 WBC (Bld) 0.8 % Normal 0.0-6.0 [facility] Comment on above: Performed By: #### 6 2586 #### [facility] [address] [facility] [place] [address], [facility] Erythrocyte distribution width (RBC) [Ratio] 14.0 % Normal 11.5-15.0 [facility] Comment on above: Performed By: #### 6 2586 #### [facility] [address] [facility] [place] [address], [facility] Hematocrit (Bld) [Volume fraction] 35.1 % Low 39.0-50.0 [facility] Comment on above: Performed By: #### 6 2586 #### [facility] [address] [facility] [place] [address], [facility] Hemoglobin (Bld) [Mass/Vol] 11.6 g/dL Low 13.0-17.0 [facility] Comment on above: Performed By: #### 6 2586 #### [facility] [address] [facility] [place] [address], [facility] IMMATURE GRANS 0.9 % Normal 0.0-1.0 [facility] Comment on above: Performed By: #### 6 [id number] #### [facility] [address] [facility] [place] [address], [facility] Lymphocytes (Bld) [#/Vol] 0.7 10*3/uL Low 1.2-4.0 [facility] Comment on above: Performed By: #### 6 [id number] #### [facility] [address] [place] [address], [facility] Lymphocytes/100 WBC (Bld) 11.2 % Low 20.0-45.0 [facility] Comment on above: Performed By: #### 6 [id number] #### [facility] [address] [facility] [place] [address], [facility] MCH (RBC) [Entitic mass] 31.4 pg Normal 27.0-33.0 [facility] Comment on above: Performed By: #### 6 [id number] #### [facility] [address] [facility]. [place] [id number], [facility] MCHC (RBC) [Mass/Vol] 33.0 g/dL Normal 32.0-35.0 [facility] Comment on above: Performed By: #### 6 [id number] #### [facility] [address] [facility] [place] [address], [facility] MCV (RBC) [Entitic vol] 95.1 fL Normal 82.0-98.0 T [facility] Comment on above: Performed By: #### 6 [id number] #### [facility] [address] [facility] [place] [address], [facility] Monocytes (Bld) [#/Vol] 0.8 10*3/uL Normal 0.1-1.0 [facility] Comment on above: Performed By: #### 6 [id number] #### [facility] [address] [facility]. [address] MONOS 12.4 % High 5.0-12.0 [facility] Comment on above: Performed By: #### 6 [id number] #### [facility] [address] [place] [address], [facility] Neutrophils/100 WBC (Bld) 74.4 % High 40.0-72.0 [facility] Comment on above: Performed By: #### 6 [id number] #### [facility] [address] [place] [address], [facility] Nucleated RBC/100 WBC (Bld) [Ratio] 0 % Normal 0-0 [facility] Comment on above: Performed By: #### 6 [id number] #### [facility] [address] [facility] [place] [address], [facility] PLAT CNT 233 10*3/uL Normal 150-400 [facility] Comment on above: Performed By: #### 6 [id number] #### [facility] [address] [facility] [place] [address], [facility] RBC (Bld) [#/Vol] 3.69 10*6/uL Low 4.20-5.70 [facility] Comment on above: Performed By: #### 6 [id number] #### [facility] [address] [facility] [place] [address], [facility] WBC (Bld) [#/Vol] 6.54 10*3/uL Normal 4.00-10.60 [facility] Comment on above: Performed By: #### 6 [id number] #### [facility] [address] [facility] [place] [address], [facility] KNEE RIGHT 3 VWSon 0 KNEE RIGHT 3 S [facility] Department of Radiology [address] [place] [id number] Patient Name: HUY OSEI : 1950 Sex: M Age: Race: White Pt. Location: Patient Status: O Ordered Date: 11/09/2019 6:50:00 PM Completed Date: 11/09/2019 07:18 PM Requesting Provider: ANDREWS COLLIER Attending Provider: ANDREWS COLLIER Report Copy To: Signs & Symptoms: M00.9 Pyogenic arthritis, unspecified I10 History: [place] Comments: , Views (X-RAY, KNEE): Radiologic Protocol [...] reports Electronically signed: Galen Kruse. Transcribed by: [email or web address], User Resident: TONYA COPE Electronically Signed by: GALEN KRUSE @ 11/10/2019 09:54 AM I personally read this/these film(s) with this resident Normal [facility] Comment on above: Order Comment: , Glynn ws (X-RAY, KNEE): Radiologic Protocol , Weight Bearing?: Y , Views (X-RAY, KNEE): Radiologic Protocol , Weight Bearing?: Y , , , Ordering Provider - ANDREWS COLLIER MD , PROTHROMBIN TIMEon 0 INR Coag (PPP) [Relative time] 0.99 {INR} Normal 0.91-1.16 [facility] Comment on above: Result Comment: ACCC P [...] 1995;108:231S-246S. Performed By: #### 6 [id number] #### [facility] [address] [facility]. [address] PT Coag (PPP) [Time] 13.1 s Normal 12.3-14.8 [facility] Comment on above: Result Comment: ALL RESULTS MUST BE INTERPRETED WITH RESPECT TO BLOOD DRAWING ARTIFACT OR DILUTION ERROR OF ANTICOAGULANT AT THE TIME OF SAMPLING. Performed By: #### 6 [id number] #### [facility] [address] [facility] [place] [address], [facility] RBC'S 2 UNITSon 11-09-2019 CROSSMATCH INTERP 1 COMP Normal [facility] Comment on above: Performed By: #### 8 [id number] #### [facility] [address] [facility] [place] [address], [facility] CROSSMATCH INTERP 2 COMP Normal [facility] Comment on above: Performed By: #### 8 [id number] #### [facility] [address] [facility] [place] [address], [facility] PRODUCT CODE 1 E0336 Normal [facility] Comment on above: Performed By: #### 8 [id number] #### [facility] [address] [place] [address], [place] PRODUCT CODE 2 E0336 Normal [facility] Comment on above: Performed By: #### 8 [id number] #### [facility] [address] [place] [address], [place] PRODUCT STATUS 1 RE Normal [facility] Comment on above: Result Comment: Resu lt changed by IF on 11/14/2019 06:36. The previous value was XM. Performed By: #### 8 [id number] #### [facility] [address] [place] [address], [place] PRODUCT STATUS 2 RE Normal [facility] Comment on above: Result Comment: Resu lt changed by IF on 11/14/2019 06:36. The previous value was XM. Performed By: #### 8 [id number] #### [facility] [address] [place] [address], [place] UNIT ABO 1 A Normal [facility] Comment on above: Performed By: #### 8 [id number] #### [facility] [address] [place] [address], [place] UNIT ABO 2 A Normal [facility] Comment on above: Performed By: #### 8 [id number] #### [facility] [address] [place] [address], [place] UNIT ID 1 [id number] Normal [facility] Comment on above: Performed By: #### 8 [id number] #### [facility] [address] [place] [address], [place] UNIT ID 2 [id number] Normal [facility] Comment on above: Performed By: #### 8 [id number] #### [facility] [address] [place] [address], [place] UNIT RH 1 Positive Normal [facility] Comment on above: Performed By: #### 8 [id number] #### [facility] [address] [place] [address], [facility] UNIT RH 2 Positive Normal [facility] Comment on above: Performed By: #### 8 [id number] #### [facility] [address] [place] [address], [facility] Vital Signs Date Time Vital Sign Value Performing Clinician Facility 02-13-2025 09:44-0400 Body height 177.8 cm Pool Garcia MD Work Phone: [facility] 02-13-2025 09:44-0400 Body mass index (BMI) [Ratio] 30.42 kg/m2 Pool Garcia MD Work Phone: [facility] 02-13-2025 09:44-0400 Body temperature 97.3 [degF] Pool Garcia MD Work Phone: [facility] 02-13-2025 09:44-0400 Body weight 96.16 kg Pool Garcia MD Work Phone: [facility] 02-13-2025 09:44-0400 Diastolic blood pressure 66 mm[Hg] Pool Garcia MD Work Phone: [facility] 02-13-2025 09:44-0400 Heart rate 77 /min Pool Garcia MD Work Phone: [facility] 02-13-2025 09:44-0400 Respiratory rate 20 /min Pool Garcia MD Work Phone: [facility] 02-13-2025 09:44-0400 SaO2% (BldA) [Mass fraction] 97 % Pool Garcia MD Work Phone: [facility] 02-13-2025 09:44-0400 Systolic blood pressure 128 mm[Hg] Pool Garcia MD Work Phone: [facility] 02-02-2025 10:42-0400 Body height 177.8 cm [facility] 02-02-2025 10:42-0400 Body mass index (BMI) [Ratio] 30.3 kg/m2 [facility] 02-02-2025 10:42-0400 Body temperature 98 [degF] [facility] 02-02-2025 10:42-0400 Body weight 95.93 kg [facility] 02-02-2025 10:42-0400 Diastolic blood pressure 62 mm[Hg] [facility] 02-02-2025 10:42-0400 Heart rate 73 /min [facility] 02-02-2025 10:42-0400 Respiratory rate 16 /min [facility] 02-02-2025 10:42-0400 SaO2% (BldA) [Mass fraction] 96 % [facility] 02-02-2025 10:42-0400 Systolic blood pressure 138 mm[Hg] [facility] 09-04-2024 09:32-0500 Body height 177.8 cm [facility] 09-04-2024 09:32-0500 Body mass index (BMI) [Ratio] 30.8 kg/m2 [facility] 09-04-2024 09:32-0500 Body temperature 98.2 [degF] [facility] 09-04-2024 09:32-0500 Body weight 97.52 kg [facility] 09-04-2024 09:32-0500 Diastolic blood pressure 65 mm[Hg] [facility] 09-04-2024 09:32-0500 Heart rate 73 /min [facility] 09-04-2024 09:32-0500 Respiratory rate 18 /min [facility] 09-04-2024 09:32-0500 SaO2% (BldA) [Mass fraction] 97 % [facility] 09-04-2024 09:32-0500 Systolic blood pressure 129 mm[Hg] [facility] 08-15-2024 11:08-0400 Body height 177.8 cm Pool Garcia MD Work Phone: [facility] 08-15-2024 11:08-0400 Body mass index (BMI) [Ratio] 30.28 kg/m2 Pool Garcia MD Work Phone: [facility] 08-15-2024 11:08-0400 Body temperature 97.5 [degF] Pool Garcia MD Work Phone: [facility] 08-15-2024 11:08-0400 Body weight 95.71 kg Pool Garcia MD Work Phone: [facility] 08-15-2024 11:08-0400 Diastolic blood pressure 54 mm[Hg] Pool Garcia MD Work Phone: [facility] 08-15-2024 11:08-0400 Heart rate 70 /min Pool Garcia MD Work Phone: [facility] 08-15-2024 11:08-0400 Respiratory rate 18 /min Pool Garcia MD Work Phone: [facility] 08-15-2024 11:08-0400 SaO2% (BldA) [Mass fraction] 96 % Pool Garcia MD Work Phone: [facility] 08-15-2024 11:08-0400 Systolic blood pressure 110 mm[Hg] Pool Garcia MD Work Phone: [facility] 05-24-2023 10:25-0400 Body height 176.53 cm Katiana Kemp Other [facility] Other 05-24-2023 10:25-0400 Body mass index (BMI) [Ratio] 31.2 kg/m2 Katiana Kemp Other [facility] Other 05-24-2023 10:25-0400 Body weight 97.25 kg Katiana Kemp Other [facility] Other 05-24-2023 10:25-0400 Diastolic blood pressure 65 mm[Hg] Katiana Kemp Other [facility] Other 05-24-2023 10:25-0400 Respiratory rate 18 /min Katiana Kemp Other [facility] Other 05-24-2023 10:25-0400 SaO2% (BldA) [Mass fraction] 100 % Katiana Kemp Other [facility] Other 05-24-2023 10:25-0400 Systolic blood pressure 142 mm[Hg] Katiana Kemp Other [facility] Other Encounters Encounter Date Encounter Type Care Provider Facility Start: 03-08-2025 End: 03-08-2025 Clinisync Result Encounter Generic External Data Provider [facility] External [facility] Unsolicited Start: 03-08-2025 End: 03-08-2025 Clinisync Result Encounter Generic External Data Provider [facility] External [facility] Unsolicited Start: 02-21-2025 End: 02-21-2025 Clinisync Result Encounter Generic External Data Provider [facility] External [facility] Unsolicited Start: 02-21-2025 End: 02-21-2025 Clinisync Result Encounter Generic External Data Provider [facility] External Department Unsolicited Start: 02-18-2025 End: 02-18-2025 Clinisync Result Encounter Generic External Data Provider [facility] External [facility] Unsolicited Start: 02-18-2025 End: 02-18-2025 Clinisync Result Encounter Generic External Data Provider [facility] External [facility] Unsolicited Start: 02-13-2025 End: 02-13-2025 Bamboo flowsheet Pool Garcia MD Work Phone: [facility] Start: 02-13-2025 End: 02-13-2025 Bamboo flowsheet Pool Garcia MD Work Phone: [facility] Start: 02-13-2025 End: 02-13-2025 Clinisync Result Encounter Pool Garcia MD Work Phone: [facility] Unsolicited Start: 02-13-2025 End: 02-13-2025 Office outpatient visit 25 minutes Pool Garcia MD Work Phone: [facility] Comment on above: Essential hypertensi on, benign (CMS/HCC) (Primary Dx); Chronic obstructive pulmonary disease, unspecified COPD type (CMS/HCC); Fatigue, unspecified type; Degeneration of intervertebral disc of lumbar region with discogenic back pain; PAD (peripheral artery disease) (CMS/HCC); Stage 3b chronic kidney disease (HCC) (CMS/HCC); Encounter for long-term (current) use of medications Start: 02-13-2025 End: 02-13-2025 ambulatory POOL GARCIA Not Available Start: 02-02-2025 End: 02-02-2025 [facility] Work Phone: Start: 02-02-2025 End: 02-02-2025 Patient encounter procedure [facility] Work Phone: Start: 01-14-2025 End: 01-14-2025 Clinisync Result Encounter Generic External Data Provider [facility] External Department Unsolicited Start: 01-14-2025 End: 01-14-2025 Clinisync Result Encounter Generic External Data Provider [facility] External Department Unsolicited Start: 01-01-2025 End: 01-01-2025 Clinisync Result Encounter Generic External Data Provider [facility] External Department Unsolicited Start: 01-01-2025 End: 01-01-2025 Clinisync Result Encounter Generic External Data Provider [facility] External Department Unsolicited Start: 09-04-2024 End: 09-04-2024 [facility] Work Phone: Start: 09-04-2024 End: 09-04-2024 Patient encounter procedure [facility] Work Phone: Start: 08-15-2024 End: 08-15-2024 Bamboo flowsheet Pool Garcia MD Work Phone: [facility] Start: 08-15-2024 End: 08-15-2024 Bamboo flowsheet Pool Garcia MD Work Phone: [facility] Start: 08-15-2024 End: 08-15-2024 Clinisync Result Encounter Pool Garcia MD Work Phone: [facility] External Department Unsolicited Start: 08-15-2024 End: 08-15-2024 Patient encounter procedure Pool Garcia MD Work Phone: [facility] Healthcare Start: 08-15-2024 End: 08-15-2024 Postop follow up visit related to original px Pool Garcia MD Work Phone: [facility] FM Comment on above: Encounter for Medica [...] Not Available Start: 07-13-2024 End: 07-13-2024 ambulatory HOLLY HUGHES [facility] Start: 03-12-2024 End: 03-13-2024 Emergency department patient visit JOANNE GALLEGOS [facility] Start: 12-26-2023 End: 12-26-2023 ambulatory [facility] Start: 05-24-2023 End: 05-24-2023 ambulatory Katiana Kemp Other [facility] Other Start: 05-24-2023 Office outpatient ne w 20 minutes Katiana Kemp [facility] Start: 2023 End: 01-28-2023 ambulatory HEYDI DUEÑASMILAMBERT Facility: Start: 01-13-2023 End: 01-14-[address] POOL GARCIA Facility:[facility] Start: 01-11-2023 End: 01-11-2023 ambulatory NARENDRANATH LAKSHMIPATHY Facility:[facility] Start: 12-07-2022 End: 12-08-[address] SCOTT CHAUHAN . Facility:[facility] Start: 11-02-2022 End: 11-03-[address] SCOTT CHAUHAN . Facility:[facility] Start: 10-26-2022 End: 10-27-[address] SCOTT CHAUHAN . Facility:[facility] Start: 10-26-2022 End: 10-27-[address] SCOTT CHAUHAN . Facility:[facility] Start: 07-27-2022 End: 07-28-[address] POOL GARCIA Facility: Start: 03-11-2022 End: 03-11-2022 ambulatory LEIGHA PEDRAZA . Facility: Start: 03-03-2022 Encounter for preprocedural cardiovascular examination [facility]IG[facility] . [facility] Start: 03-03-2022 Encounter for preprocedural laboratory examination LEIGHA PEDRAZA . [facility] Start: 03-01-2022 End: 03-02-2022 ambulatory LEIGHA PEDRAZA . Facility: Start: 03-01-2022 End: 03-02-2022 Encounter for preprocedural cardiovascular examination LEIGHA PEDRAZA . Facility: Start: 02-24-2022 End: 02-25-[address] BRADY MORRIS Facility: Start: 08-21-2020 End: 08-22-2020 Patient encounter procedure PROVIDER UNKNOWN Facility:[facility] Start: 05-05-2020 End: 05-06-2020 Patient encounter procedure PROVIDER UNKNOWN Facility:[facility] Start: 04-16-2020 End: 04-17-2020 Patient encounter procedure PROVIDER UNKNOWN Facility:[facility] Start: 11-26-2019 End: 11-27-2019 Patient encounter procedure [place] Facility:[facility] Start: 11-09-2019 End: 11-13-2019 Evaluation and management of inpatient [place] Facility:[facility] Procedures Date Procedure Procedure Detail Performing Clinician Start: 03-08-2025 MR LUMBAR SPINE WO CON Generic External Data Provider Start: 02-21-2025 XR LUMBAR SPINE 6V W BENDING Generic External Data Provider Start: 02-18-2025 XR ANKLE RT MIN 3V Gene kelly External Data Provider Start: 02-13-2025 ALL BASIC METABOLIC PANEL Pool Garcia MD Work Phone: Start: 02-13-2025 HMHP LIVER PANEL Pool banuelos MD Work Phone: Start: 01-14-2025 XR ANKLE RT MIN 3V Gene kelly External Data Provider Start: 01-01-2025 XR ANKLE RT MIN 3V Gene kelly External Data Provider Start: 08-15-2024 ALL CBC WITH AUTO DIFF Pool Garcia MD Work Phone: Start: 07-27-[address] SCOTT CHAUHAN . Comment on above: Performed By: #### T SH, BMP #### [facility] [address] [place] [address] Dr. Marilin Rothman Start: 04-17-2020 Antibody screen Comment on above: Performed By: #### 0 2024 #### [facility] [address] [place] [address], [facility] Start: 11-26-2019 Anes integ extremiti es ant trunk & perineum nos RASHEEDA A CHELA Start: 11-26-2019 LATE CLOSURE OF WOUND N ABIL EBRAHEIM Start: 11-10-2019 EXCISION OF RIGHT KN EE JOINT, OPEN APPROACH ANDREWS EBRAHEIM Start: 11-10-2019 Antibody screen Comment on above: Performed By: #### 6 [id number] #### [facility] [address] Plan of Treatment Date Care Activity Detail Author Start: 08-27-2025 End: 08-27-2025 Patient encounter procedure 08/27/2025 11:00 AM EST Office Visit [facility] [address] [place] [phone] Pool Garcia MD [address] [place] [address] [facility] Start: 08-15-2025 Medicare Annual Wellness (AWV) Medicare Annual Wellness (AWV) [facility] Start: 02-13-2025 End: 02-13-2026 Basic metabolic 1998 panel - Serum or Plasma Basic metabolic panel Lab Routine Essential hypertension, benign (CMS/HCC) Expected: 02/13/2025 (Approximate), Expires: 02/13/2026 [facility] Work Phone: Comment on above: Expected: 02/13/2025 (Approximate), Expires: 02/13/2026 Start: 02-13-2025 End: 02-13-2026 CBC W Auto Differential panel - Blood CBC and differential Lab Routine Encounter for long-term (current) use of medications Expected: 02/13/2025 (Approximate), Expires: 02/13/2026 [facility] Comment on above: Expected: 02/13/2025 (Approximate), Expires: 02/13/2026 Start: 02-13-2025 End: 02-13-2026 Hepatic function 2000 panel - Serum or Plasma Hepatic function panel Lab Routine Encounter for long-term (current) use of medications Expected: 02/13/2025 (Approximate), Expires: 02/13/2026 [facility] Comment on above: Expected: 02/13/2025 (Approximate), Expires: 02/13/2026 Start: 02-13-2025 End: 02-13-2025 Patient encounter procedure [facility] Comment on above: Arrived Start: 08-15-2024 End: 08-15-2025 Basic metabolic 1998 panel - Serum or Plasma Basic metabolic panel Lab Routine Essential hypertension, benign (CMS/HCC) Expected: 08/15/2024 (Approximate), Expires: 08/15/2025 [facility] Work Phone: Comment on above: Expected: 08/15/2024 (Approximate), Expires: 08/15/2025 Start: 08-15-2024 End: 08-15-2025 CBC W Auto Differential panel - Blood CBC and differential Lab Routine Encounter for long-term (current) use of medications Expected: 08/15/2024 (Approximate), Expires: 08/15/2025 [facility] Comment on above: Expected: 08/15/2024 (Approximate), Expires: 08/15/2025 Start: 08-15-2024 End: 08-15-2025 Hepatic function 2000 panel - Serum or Plasma Hepatic function panel Lab Routine Encounter for long-term (current) use of medications Expected: 08/15/2024 (Approximate), Expires: 08/15/2025 [facility] Comment on above: Expected: 08/15/2024 (Approximate), Expires: 08/15/2025 Start: 08-15-2024 End: 08-15-2025 Lipid 1996 panel - Serum or Plasma Lipid panel Lab Routine Dyslipidemia (CMS/HCC) Expected: 08/15/2024 (Approximate), Expires: 08/15/2025 [facility] Comment on above: Expected: 08/15/2024 (Approximate), Expires: 08/15/2025 Start: 08-15-2024 End: 08-15-2025 Prostate specific Ag [Mass/volume] in Serum or Plasma PSA Lab Routine Screening PSA (prostate specific antigen) Expected: 08/15/2024 (Approximate), Expires: 08/15/2025 [facility] Comment on above: Expected: 08/15/2024 (Approximate), Expires: 08/15/2025 Start: 08-15-2024 End: 08-15-2025 Thyrotropin [Units/volume] in Serum or Plasma TSH Lab Routine Class 1 obesity due to excess calories with serious comorbidity and body mass index (BMI) of 30.0 to 30.9 in adult Expected: 08/15/2024 (Approximate), Expires: 08/15/2025 [facility] Comment on above: Expected: 08/15/2024 (Approximate), Expires: 08/15/2025 Start: 08-15-2024 End: 08-15-2024 Patient encounter procedure 08/15/2024 11:30 AM EDT Office Visit [facility] [address] [place] [address] Pool Garcia MD [address] [place] [phone] Arrived [facility] Comment on above: Arrived Start: 06-24-2024 Influenza vaccination Influenza Vacc ine (#1) [facility] Start: 05-05-2021 Pneumococcal Vaccine : 65+ Years (2 of 2 - PCV) Pneumococcal Vaccine: 65+ Years (2 of 2 - PCV) [facility] Start: 1950 Medicare Annual Wellness (AWV) Medicare Annual Wellness (AWV) [facility] Immunizations Immunization Date Immunization Notes Care Provider [facility] 08-15-2024 influenza, seasonal, injectable, preservative free Pool Garcia MD Work Phone: [facility] Healthcare 09-15-2021 influenza virus vacc ine, unspecified formulation Pool Garcia MD Work Phone: [facility] Payers Date Payer Category Payer Medicare (Managed Care) [facility] [id number] 2009 Unknown [id number] 1959 Medicare [id number] 1959 Medicare [id number] 1950 Unknown [id number] 2.840.1.487598.3.579.2. 647 1948 Unknown [id number] 2.840.1.924517.3.579.2. 1950 Unknown [id number] 2.840.1.988700.3.579.2. 1950 Unknown [id number] 2.16840.1.038570.3.579.2. 647 1948 Unknown [id number] 2.16.840.1.389389.3.579.2. 647 1948 Unknown [id number] 2.16840.1.779970.3.579.2. 593 1948 Unknown [id number] 2.16.840.1.826887.3.579.2. 593 1948 Unknown [id number] 2.16.840.1.752000.3.579.2. 593 1948 Unknown [id number] 2.16.840.1.408459.3.579.2. 593 1948 Unknown [id number] 2.16.840.1.199801.3.579.2. 593 1948 Unknown [id number] 2.16.840.1.579820.3.579.2. 593 1948 Unknown [id number] 2.16.840.1.319948.3.579.2. 593 1948 Unknown [id number] 2.16.840.1.021310.3.579.2. 593 1948 Unknown [id number] 2.16.840.1.562190.3.579.2. 593 1948 Unknown [id number] 2.16.840.1.117303.3.579.2. 593 1948 Unknown [id number] 2.16.840.1.366393.3.579.2. 593 1948 Unknown [id number] 1950 Unknown [id number] 1950 Unknown [id number] Medicare [id number] Social History Date Type Detail Facility Start: 02-08-2024 End: 08-15-2024 Sex Assigned At [facility] Tobacco smoking stat [facility] Tobacco smoking consumption unknown [facility] Start: [...] Not on file [facility] Start: 08-15-2024 End: 02-02-2025 Tobacco smoking status NHIS Ex-smoker [facility] History of tobacco use Current smoker [facility] History of tobacco use Cigarette Smoker [facility] Start: 08-15-2024 Tobacco use and exposure Smokeless tobacco non-user [facility] Start: 09-04-2024 End: 02-02-2025 Sex Male (finding) [facility] Start: 1950 Sex Assigned At Male [facility] Clinical Notes 10-26-2022 to 02-13-2025 Pool Garcia MD - 02/13/2025 10:32 AM Edwin Garcia MD - 02/13/2025 10:32 AM Edwin Garcia MD - 02/13/2025 10:31 AM Edwin Garcia MD - 02/13/2025 10:31 AM EDT Note Date & Type Note Facility 02-13-2025 History of Present illness Narrative Associated Problem(s): PAD (peripheral artery disease) (CMS/HCC) Continue medication. Associated Problem(s): Essential hypertension, benign (CMS/HCC) BP controlled and monitor PRN. Associated Problem(s): DDD (degenerative disc disease), lumbar Pain worse after using walking boot. Treat with prednisone. Refer back to pain management. Associated Problem(s): Chronic obstructive pulmonary disease (COPD) ([facility]) Breathing stable and continue inhalers. Follow with pulmonology. Images from the original note were not included. Subjective Patient ID: Huy Osei is a 75 y.o. male who presents for Follow-up (6m) and Hip Pain. Follow up HTN, COPD, back pain, and PVD. Patient stable today. Checking BP PRN and typically controlled. BP normal today. Taking medication daily and tolerating without side effects. COPD stable. Mild SOB with exertion. Occasional cough and sputum. Using inhalers and helps. Following with pulmonology. Back pain recently worse. Fell down steps in December and broke right ankle. In boot and put more strain on back. Pain in low back and top right hip. Pain with walking and standing. Using OTC and not helping. PVD stable. Pain claudication. Review of Systems Constitutional: Negative for fatigue. [...] There is no guarding or rebound. Musculoskeletal: Left lower leg: No edema. Neurological: Mental Status: He is alert. Assessment/Plan Problem List Items Addressed This Visit Essential hypertension, benign (CMS/HCC) - Primary BP controlled and monitor PRN. Relevant Orders Basic metabolic panel Chronic obstructive pulmonary disease (COPD) (CMS/HCC) Breathing stable and continue inhalers. Follow with pulmonology. Chronic kidney disease (CKD), stage III (moderate) (HCC) (CMS/[facility]) DDD (degenerative disc disease), lumbar Pain worse after using walking boot. Treat with prednisone. Refer back to pain management. Relevant Medications predniSONE (Deltasone) 50 MG tablet Other Relevant Orders Ambulatory referral to Pain Medicine PAD (peripheral artery disease) ([facility]) Continue medication. Fatigue Encounter for long-term (current) use of medications Relevant Orders CBC and differential Hepatic function panel documented in this encounter [facility] 08-15-2024 History of Present illness Narrative Associated [...] Items Addressed This Visit Essential hypertension, benign ([facility]/HCC) Relevant Orders Basic metabolic panel Dyslipidemia ([facility]) Relevant Orders Lipid panel Encounter for Medicare [...] free IM (Completed) documented in this encounter [facility] 07-13-2024 Note Reviewed ABIs with p atient and they are normal no concerns for significant arterial stenosis Continue Lipitor, and regular exercise [facility] 07-13-2024 Note Lipid abnormalities are unchanged. Follow-up with PCP for annual blood testing Continue atorvastatin 80 mg daily and reviewed his lipid profile is well-controlled and liver function was normal Pharmacotherapy as ordered. Lipids will be reassessed in 1 year. [facility] 07-13-2024 Note Hypertension is unch anged. Continue Norvasc, losartan and Toprol Continue current treatment regimen. Continue current medications. Blood pressure will be reassessed at the next regular appointment. [facility] 07-13-2024 Note Coronary artery dise ase is unchanged. Remained stable no concerning symptoms Continue Plavix, Toprol and Lipitor Currently cholesterol levels are well-controlled and liver functions normal Continue current treatment regimen. Regular aerobic exercise. Continue current medications. Cardiac status will be reassessed in 1 year. [facility] 07-13-2024 Note [facility] CARDIOLOGY PROGR ESS NOTE [...] DAY IN THE MORNING 90 tablet 3 wkurhsddwwq-czfiaexky-llqvftuk 100-62.5-25 mcg blister with device Inhale 1 [...] 122. Imaging a (more content not included)... [facility] 07-13-2024 Note Pt here for six cecelia h follow up. Pt denies chest pain, sob, palpatations. Review of Systems HENT: Positive for tinnitus. Cardiovascular: Positive for dyspnea on exertion. Musculoskeletal: Positive for arthritis, back pain, joint pain and myalgias. All other systems reviewed and are negative. [facility] 12-26-2023 Note [facility] Subjective Huy Osei is a [...] Topics Alcohol use: Yes Comment: moderate HPI Huy is seen in follow-up on [...] THE MORNING, Disp: 90 tablet, Rfl: 3 xjzlltxlqxf-crjywlwfq-tvnivdxj 100-62.5-25 mcg blister with device, Inhale 1 [...] Rate 05/05/2020 79 Atrial Rate 05/05/2020 79 WA Interval 05/05/2020 148 QRS DURATION 05/05/2020 84 QT Interval 05/05/2020 386 QTC CALCULATION(BEZET) 05/05/2020 442 P Outlook 05/05/2020 51 R-Outlook 05/05/2020 32 T Wave Outlook 05/05/2020 42 Diagnosis 05/05/2020 Value:Normal sinus rhythm (more content not included)... [facility] 05-24-2023 Evaluation note Encounter Date Diagnosis Assessment [...] fever. Patient verbalized understanding of treatment plan. [facility] Other 04-06-2023 NoteCONSULTATION CONSULTATION DATE: 2023 TO: [...] our patients to inform us about any ingq-wdp-ubgexfd medications or herbal remedies/nutritional supplements/alternative remedies. 2. [...] treatment options with their primary care provider.[id number] Note CONSULTATION CONSULTATION DATE: 12/07/2022 CHIEF COMPLAINT: [...] Education was done. CC: Pool Garcia M.D.[facility] [id number] NoteCONSULTATION CONSULTATION DATE: 11/02/2022 PREOPERATIVE DIAGNOSIS: Left [...] will be followed up in the office.[facility] [id number] NoteCONSULTATION CONSULTATION DATE: 10/26/2022 CHIEF COMPLAINT: Low [...] by Dr. Garcia. CC: Pool Garcia M.D.[facility] HospitalEvaluchristianacare note* Diagnosis Encounter for Medicare annual wellness [...] vascular disease, unspecified [facility] noteNo assessment information availableMount [facility]. [facility] Work Phone: [facility] note* Diagnosis Onset Date Resolution Status Admit Date Right fibular fracture noneactive Ap 2024 10:24am Blind left eye noneactive January 10:24am [facility] Work Phone: Evaluation note* Diagnosis Encounter for Medicare annual wellness [...] (HCC) (CMS/HCC) Chronic obstructive pulmonary disease, unspecified Peripheral vascular disease, unspecified (CMS/HCC) Peripheral vascular disease, unspecified Essential hypertension, benign (CMS/HCC)- Primary Essential hypertension, benign Chronic obstructive pulmonary disease, unspecified COPD type (CMS/HCC) Fatigue, unspecified type Degeneration of intervertebral disc of lumbar region with discogenic back pain PAD (peripheral artery disease) (CMS/[facility]) Unspecified peripheral vascular disease Stage 3b chronic kidney disease (HCC) (CMS/[facility]) Encounter for long-term (current) use of medications Encounter for long-term (current) use of other medications [facility] - [facility]orted* Type Description Date Medical History HTN Medical History hyperlipidemia Medical History PAD Medical History SOB Surgical History right knee arthroscopy Surgical History cataract removal [facility] Other Summary Purpose Family History Relationship Condition Age at Onset Recorded Date/T irving father Unknown mother Unknown Advance Directives Advance Directive Response Recorded Date/ Time Advance Directives No September 7:42am Advance Directive Response Recorded Date/ Time Advance Directives No September 8:42am Hospital Course Note MR#: [id number] [facility] Pt. Name: Huy Osei Admitted: 11/09/2019 [...] cocci. The patient was then transferred to [facility] for higher level of care. The patient [...] left hand pain September 04, 2024 9:23am Chief Complaint Admit Date bilateral eye irritation/ poss pink eye February 02, 2025 10:24am Reason for Visit Admit Date Right fibular fracture February 02, 2025 10:24am Blind left eye February 02, 2025 10: 24am Additional Source Comments (unrecognized sect ion and content) No Status Records FoundNo Status Records FoundNo Status Records FoundNo Status Records FoundNo Status Records Found INFORMATION SOURCE (unrecogn ized section and content) DATE CREATED AUTHOR 09/21/2020 [facility] DATE CREATED AUTHOR AUTHOR'S ORGANIZ ATION 02/06/2023 [facility] DATE CREATED AUTHOR AUTHOR'S ORGANIZ ATION 03/17/2024 [facility] DATE CREATED AUTHOR AUTHOR'S ORGANIZ ATION 09/11/2024 [facility] DATE CREATED AUTHOR AUTHOR'S ORGANIZ ATION 02/14/2025 [facility] EPIC REASON FOR VISIT (unrecogniz ed section and content) Reason Comments Medicare Annual Wellness Visit [facility] Reason Comments Follow-up 6m Hip Pain Care Teams (unrecognized sec tion and content) Anodizer Relationship Specialty Start Date End Date Pool Garcia MD [address] [place] [phone] PCP - [facility] 11/24/23 02/21/68 Pool Garcia MD [address] [place] [phone] PCP - General Family Medicine 08/15/24 Anodizer Relationship Specialty Start Date End Date Pool Garcia MD [address] [place] [phone] PCP - [facility] 11/24/23 02/21/68 Pool Garcia MD [address] [place] [phone] PCP - General Family Medicine 08/15/24 Anodizer Relationship Specialty Start Date End Date Pool Garcia MD [address] [place] [phone] PCP - [facility] 11/24/23 02/21/68 Pool Garcia MD [address] [place] [phone] PCP - [facility] 08/15/24 Team Status: Active Member Role Status Dates Pool Garcia MD Primary Care Provider Active Team Status: Inactive Member Role Status Dates Pool Garcia MD Primary Care Provider Active S tart: September 04, 2024 End: September 04, 2024 Katiana Kemp APRN Attending Provider Active Start: September 04, 2024 End: September 04, 2024 Anodizer Relationship Specialty Start Date End Date Pool Garcia MD [address] [place] [phone] [facility] 11/24/23 02/21/68 Pool Garcia MD [address] [place] [phone] PCP [facility] 08/15/24 Team Status: Inactive Member Role Status Dates Pool Garcia MD Primary Care Provider Active S tart: February 02, 2025 End: February 02, 2025 Katiana Kemp APRN Attending Provider Active Start: February 02, 2025 End: February 02, 2025 Anodizer Relationship Specialty Start Date End Date Pool Garcia MD [address] [place] [phone] [facility] 11/24/23 02/21/68 Pool Garcia MD [address] [place] [phone] PCP [facility] 08/15/24 Anodizer Relationship Specialty Start Date End Date Pool Garcia MD [address] [place] [phone] [facility] 11/24/23 02/21/68 Pool Garcia MD [address] [place] [phone] [facility] 08/15/24 Anodizer Relationship Specialty Start Date End Date Pool Garcia MD [address] [place] [phone] [facility] 11/24/23 02/21/68 Pool Garcia MD [address] [place] [phone] [facility] 08/15/24 Anodizer Relationship Specialty Start Date End Date Pool Garcia MD [address] [place] [phone] [facility] 11/24/23 02/21/68 Pool Garcia MD [address] [place] [phone] [facility] 08/15/24 Goals (unrecognized section and content) Goals may [...] BE BASED ON THE PRIMARY CLINICAL RECORDS. [facility]. provides no warranty or guarantee of the accuracy or completeness of information in this document.
--- NOTE | 2025-03-13 13:23 | PM.CN ---
Consult Note: HPI Data of Consult Patient: new to practice Requesting Physician: Ena Rhoades NP Primary Care Provider: Pool Peace MD Consult Narrative Reason for consult: back and BLE pain Narrative: Mike Osei a pleasant 75 year old male returns for evaluation of low back and BLE pain. Pt noticing moderate to severe pain in low back and RLE with pain in left foot as well, increasing over the last 3 months. Pt has a hx of lumbar radiculopathy and lumbar DDD, pt has been engaged in provider guided HEP> 6 weeks without benefit, has failed tylenol, motrin, heat, and ice. Pain today 9/10 aching burning increasing to 10/10 with standing, walking, lifting, twisting, pushing, pulling. Pain improves with sitting and lying. Recently underwent lumbar MRI with results below. cc:: CC: Ena Rhoades NP Review of Systems ROS Status of ROS 10 or more systems reviewed and unremarkable except as noted in history and below PFSH PFSH Social History Little interest or pleasure in doing things: not at all Feeling down, depressed, or hopeless: not at all Meds Home Medications and Allergies Home Medications ?Medication ?Instructions ?Recorded ?Confirmed ?Type ascorbic acid (vitamin C) 500 mg mg PO 06/17/23 History capsule atorvastatin 80 mg tablet 80 mg PO DAILY 06/17/23 06/17/23 History cholecalciferol (vitamin D3) 125 5,000 unit PO DAILY 06/17/23 06/17/23 History mcg (5,000 unit) capsule clopidogrel 75 mg tablet 75 mg PO DAILY 06/17/23 06/17/23 History fluticasone fur. 200 mcg-umeclid 1 inh inhalation DAILY 06/17/23 06/17/23 History 62.5 mcg-vilant 25 mcg inhalat.powder (Trelegy Ellipta) hydrochlorothiazide 25 mg tablet 25 mg PO DAILY 06/17/23 06/17/23 History losartan 100 mg tablet 100 mg PO DAILY 06/17/23 06/17/23 History metoprolol succinate 25 mg 25 mg PO DAILY 06/17/23 06/17/23 History tablet,extended release 24 hr multivitamin 1 tab PO DAILY 06/17/23 06/17/23 History omega 7-bml-ioc-fish oil 60 mg-90 1 cap PO DAILY 06/17/23 06/17/23 History mg-500 mg capsule (Fish Oil) polyethylene glycol 3350 17 gram 17 g PO DAILY 5 days #14 ea 06/17/23 Rx oral powder packet (Miralax) magnesium 250 mg tablet 250 mg PO DAILY 02/21/25 02/21/25 History zinc 50 mg tablet 50 mg PO DAILY 02/21/25 02/21/25 History Allergies Allergy/AdvReac Type Severity Reaction Status Date / Time Penicillins Allergy Severe Swelling Verified 10/27/24 14:15 of Lip/Tongue/Throat morphine AdvReac Severe Vomiting Verified 10/27/24 14:15 Exam Constitutional Documenting provider has reviewed patient's vital signs: yes Common normals: no apparent distress, oriented x3, healthy appearing, alert and well nourished General appearance: cooperative HENMT Common normals: normocephalic, hearing grossly normal bilaterally and moist oral mucous membranes Head and scalp: normocephalic Eye Common normals: PERRL Pupil: PERRL Neck & C-Spine Common normals: full ROM General: normal visual inspection Chest Common normals: inspection of chest normal Respiratory Common normals: normal respiratory effort, no retractions and no use of accessory muscles Back & Pelvis Lumbar spine/lower back: pain with ROM, lumbar spinal tenderness Lumbar spinal tenderness location: L3 and L4 and straight leg raise positive right; ROM not limited Sacroiliac joints: SI joint(s) abnormal Other: decreased sensation to bilateral L4,5,S1, notable SLR and radicular pain to RLE however increased NC symptoms in bilateral legs with standing/walking improved with sitting and forward flexion strength 4/5 in BLE Neuro Common normals: oriented x3 Sensorium/orientation: alert Gait (neuro): antalgic Motor exam: strength abnormal Psych Common normals: mental status grossly normal, thought process normal, cooperative, affect normal, speech normal and activity/motor behavior normal Speech: normal speech Thought process: normal thought process Results Imaging Lumbar MRI : Attestation: I have reviewed the pertinent imaging results. Radiologist's impression: FINDINGS: There is 2 mm of anterolisthesis of L4 upon L5 secondary to facet hypertrophy.. There is preservation of vertebral body heights. There is disc desiccation with mild disc height loss at L2-3, L3-L4, L4-5, and L5-S1. Mild Schmorl's node formation is noted in the endplates at T12, L1, and L2. The marrow signal is within normal limits. The conus terminates at the L1-L2 intervertebral disc level. No epidural or paraspinous fluid collection is appreciated. Simple cysts are noted in the renal cortices. Degenerative changes are noted in the sacroiliac joints. At T12-L1: There is a normal disc, central canal, and neural foramen. At L1-L2: There is a broad-based disc bulge with facet hypertrophy. There is mild to moderate spinal canal stenosis. There is mild bilateral neural foraminal stenosis. At L2-L3: There is a circumferential disc bulge with facet hypertrophy and ligamentum flavum thickening. There is a focal central disc extrusion with mild caudal migration. There is moderate to severe spinal canal narrowing. There is mild right and moderate left neural foraminal narrowing. At L3-L4: There is a broad-based disc bulge with endplate osteophyte formation right greater than left. There is facet hypertrophy. There is moderate spinal canal stenosis with mild left and moderate to severe right neural foraminal narrowing. Is mild mass effect on the exiting right L3 nerve roots. At L4-L5: There is 2 mm of anterolisthesis of L4 upon L5. There is a circumferential disc bulge with facet hypertrophy and ligamentum flavum thickening. There is severe spinal canal stenosis with moderate right neural foraminal narrowing. At L5-S1: There is a broad-based disc bulge with facet hypertrophy and endplate osteophyte formation. There is mild left and moderate right neural foraminal narrowing with mild spinal canal narrowing. Additional Findings Additional findings: If on a controlled substance or opioids, I have checked an [place] report on this patient and there are no aberrancies noted in the prescribing history.??If on a controlled substance or opioid a drug screen was completed and reviewed within the last year, and if there has not been a drug screen completed we ordered one today to monitor higher risk, state monitored pain medication use. As part of providing excellent, safe, comprehensive care, the following was completed at our patient's visit: 1. A medication reconciliation and review to ensure accurate knowledge of current/active medications, including asking our patients to inform us about any xdch-dvp-schpawt medications or herbal remedies/nutritional supplements/alternative remedies. 2. A review to specifically ensure our patients have had annual screening for screening for depression, screening for tobacco use, and screening for unhealthy alcohol use. For concerning screenings had a discussion with the patient, provided patient education, and recommended follow-up with primary care provider when appropriate. If patient noted with a risk of falling, they received education on strength, gait, and balance training to prevent future risk of falling. Portions of this note may have been carried over from the previous visit and updated as appropriate. Please note this office utilizes paper charting in addition to the electronic medical record. A list of current medications, vitals, and PMH is available there as the clinical staff outside of myself do not have access to [facility] charting during the clinic day operations. As part of providing quality comprehensive care the current medications, vitals, and PMH were reviewed in the paper chart. Assessment and Plan Assessment and Plan (1) Lumbar stenosis with neurogenic claudication: Assessment and Plan: KAYLIN 32% with moderate to severe pain impacting ADLs, standing, walking, lifting, social life, and travel (2) Lumbar spondylosis: (3) Myalgia, other site: (4) Intractable pain: Plan 75 year old male with chronic moderate to severe low back and RLE pain unresponsive to > 6 weeks of PT/Provider guided HEP, heat, ice, tylenol, and NSAIDs. lumbar xray and mri reviewed with pt, defer NS consultation at this time. proceed with right L3,4 L4,5 TFESI under fluoroscopy. I reviewed with the pt his chronic neuropathic pain and significant MRI findings may not be effectively managed with interventional therapy such as ESIs but he would like to trial this first. can consider scs trial in the future if needed. continue baclofen 10mg TID PRN pain/spasms. start medrol dose pack for severe pain at this time. start gabapentin 300mg BID, risks vs benefits reviewed. f/u 2 weeks after TFESI
== END 2025-03-13 12:49 | disposition home or self-care (01) ==
LOC: PM 12:49
PROVIDERS: PCP Family Medicine; Visit Provider Nurse Practitioner
DX: M48.062 Spinal stenosis, lumbar region with neurogenic claudication (principal); M47.816 Spondylosis without myelopathy or radiculopathy, lumbar region; M79.18 Myalgia, other site
CPT/HCPCS: G0463

== ENCOUNTER 2025-04-01 11:14 | Day surgery (SDC) | payer MEDICARE, SELFPAY ==
[2025-04-01 11:48] VITALS: BP 155/79; PULSE 80; TEMP 36.9; O2SAT 96
[2025-04-01 12:14] VITALS: BP 156/74; BP 157/70; PULSE 82; PULSE 84; O2SAT 95
[2025-04-01] MEDS: BUPIVACAINE HCL 0.25% PF 25 MG/10 ML VIAL INJ (12:16)
[2025-04-01] MEDS: 0.9 % SODIUM CHLORIDE 10 ML SYRINGE - SALINE FLUSH INJ (12:16)
[2025-04-01] MEDS: IOHEXOL 240 MG/ML - 10 ML VIAL 12 MG INJ (12:17)
[2025-04-01] MEDS: LIDOCAINE HCL 2% 400 MG/20 ML MDV INJ (12:17)
[2025-04-01] MEDS: DEXAMETHASONE SOD PHOS 10 MG/ML VIAL INJ (12:17)
--- NOTE | 2025-04-01 12:22 | P.ON_ITS ---
Date of procedure: 04/01/25 Pre-op diagnosis: Pain due to lumbar stenosis with neurogenic claudication Post-op diagnosis: same as pre-op Procedure: Procedure: Right L3-4, 4-5 transforaminal epidural steroid injection Medications: Bupivacaine 0.25% 2cc, lidocaine 2% 1cc, dexamethasone 10mg The patient was seen and examined in the preoperative holding area.? Informed consent was obtained and placed on the chart.? Patient was brought to the medical procedure unit and placed in the prone position where a timeout was completed verifying the correct patient, procedure site, position, and planned special equipment using sterile aseptic technique.? Under direct fluoroscopic visualization a 25-gauge Quincke tipped spinal needle was advanced to the designated neural foramen where contrast dye was injected to show adequate spread.? The needle was inserted at level right L3-4. There was no evidence of vascular or adverse uptake.? Epidural spread was appreciated.? The above- mentioned injectate was then placed in a 1.5 mL aliquot preceded by negative aspiration.? The needle was removed. The needle was inserted and the procedure repeated at level right L4-5.? The surgery site was covered.? Patient was taken to the postprocedural recovery area and monitored for an appropriate length of time before found suitable for discharge in the accompaniment of a responsible adult. Anesthesia: Local Surgeon: Paty Durán Pathology: none sent Condition: stable Disposition: no change
== END 2025-04-01 12:25 | disposition home or self-care (01) ==
LOC: SURGOUT 11:15
PROVIDERS: PCP Family Medicine; Visit Provider Anesthesiology
DX: M54.50 Low back pain, unspecified (principal); M48.062 Spinal stenosis, lumbar region with neurogenic claudication
CPT/HCPCS: 64483; 64484; J0665; J1100; Q9966

== ENCOUNTER 2025-04-11 13:54 | Outpatient (OUT) | payer MEDICARE, SELFPAY ==
--- OUTSIDE RECORDS SUMMARY | 2024-09-11 07:15 | XMS_ITS ---
Author Organization [facility] [place] Address [address] [place] [address] Care Team Providers Care Desktop Publishing Operator Name Role Phone Pool Peace MD Primary Care Provider Ranjit Gee Unavailable [phone] REASON FOR VISIT LDCT Scheduled Encounters Encounter Location Date Provider Diagnosis Pulmonary Medicine [place] [address] [place] [address] 09/11/2024 Ranjitelisa Farrell Plan Of Treatment Next Appt Details Provider Name:Ranjitelisa Farrell, 09/11/2025 10:00:00 AM, [address] [place], [address], Progress Notes * Mike OSEI LDOB:1950 (74 yo M)Acc No.[id number]:09/11/2024 Patient: Mike LAUREN :1950 A ge:74 Y S ex:Male Address:[address] [place] [address], [id number] * true * Date: Generated for Antonia roque/Raquel/eTransmitting on: 0 04/11/2025 01:57 PM EDT
--- OUTSIDE RECORDS SUMMARY | 2024-09-12 07:00 | XMS_ITS ---
Author Organization The [facility] in [place] Address [address] [place] [address] Care Team Providers Care Web Development Consultant Name Role Phone Pool Peace MD Primary Care Provider Ranjit Gee Unavailable [phone] Allergies Allergen (clinical drug ingredient) Drug/Non Drug [...] Problem Body mass index 30.00 to 34.99 ([id number] 107) Body mass index [BMI] 31.0-31.9, adult (Z68.31) Active confirmed Vital Signs Temperature 96.4 degrees Fahrenheit 09/12/20 24 Blood pressure systolic 124 mm Hg 09/12/20 24 Blood pressure diastolic 76 mm Hg 024 Heart Rate 75 /min 09/12/2024 Respiratory Rate 18 /min 09/12/2024 Height 70 in 09/12/2024 Weight 219.0 lbs 09/12/2024 BMI 31.42 kg/m2 09/12/2024 Oximetry 97 % 09/12/2024 Encounters Encounter Location Date Provider Diagnosis Pulmonary Medicine [place] [address] [place] [address] 09/12/2024 Ranjit Preston 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 I am not an healthcare insurance sales agent, but I suggested he may want to [...] quit 2017 LDCT scheduled for 09/25/2024. 09/12/2024 detention (current) use of 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s (ICD-10 - [...] unaffordable for him. I am not an healthcare insurance sales agent, but I suggested he may want to [...] of tobacco abuse LDCT scheduled for 09/25/2024. detention (current) use of i nhaled steroids Patient was counseled to rinse & gargle with water after inhaled corticosteroid use. Obesity, unspecified Patient's weight is inducing a restrictive pulmonary physiology. Weight loss indicated: Decrease calories, increase activity. Next Appt Details Follow Up: 1 Year, Reason: A sthma Provider Name:Ranjit Preston, 09/11/2025 10:00:00 AM, [address] [place], [address], Procedure Notes * Category Sub-Category Detail Notes PFT Data: 09/16/2017-FEV1/ FVC: 72%-FEV1: 91%-FVC: 86%-No bronchodilator response-RV: 139%-T%-DLCO: 85%11/29/2019-FEV1/FVC: 77%-FEV1: 90%-FVC: 105%-Bronchodilator response: None-RV: 137%-T%-DLCO: 65% Progress Notes * Mike OSEI LDOB:1950 (74 yo M)Acc No.[id number]:09/12/2024 Follow Up Patient: Demar Mike MIRELES Provider: Agustin Preston DO :1950 A ge:74 Y S ex:Male Date:09/12/2024 Address[facility] [facility] Pcp:Pool Peace MD Check In:10:52 AM ESTCheck [...] scheduled for his LDCT on 09/25/2024 at [facility]. Patient is under the care of [facility] Cardiology. * ROS: G eneral/Constitutional: Fever [...] d enies. 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 D rugs/Alcohol: D rugs [...] Tablet Extended Release 24 Hour Oral Trelegy Ellipta(Iykgjiidchy-Vaxqltajn-Crwjxc) 200-62.5-25 MCG/ACT Aerosol Powder Breath Activated 1 [...] Extended Release 24 Hour Oral Taking Trelegy Ellipta(Rvokzmerdmm-Ehajkgyjg-Uvzuxb) 200-62.5-25 MCG/ACT Aerosol Powder Breath Activated 1 [...] Education on smoking effects provided?09/12/2024 Former B [place] ACTION PLAN Above Normal BMI Follow-up D ietary management education, guidance, and counseling * Follow Up: 1 Year (Reason: Asthma) * * Sign off status: Completed Visit Status: C HK (Check Out) true * Provider: Agustin Preston DO Date: 11/12/2023 Generated for Antonia roque/Raquel/eTransmitting on: 0 04/11/2025 01:57 PM EDT History and Physical Notes * HPI [...] scheduled for his LDCT on 09/25/2024 at [facility]. Patient is under the care of [facility] Cardiology. Examination Category Sub-Category Detail Notes Category Not es Exam GENERAL APPEARANCE: Appears stated age Skin Normal Mouth Vicco and moist. Uppe r dentures. No candididiasis Trachea Midline Chest Normal Respiratory Normal Movements, Ef fort Normal Auscultation Diminished breath so unds. Expiratory wheezes Cardiac Regular rate and rhy thm Gastrointestinal Normal Vascular No edema Musculoskeletal Normal posture Neurological Focal, intact Psychiatric Alert and oriented x 3 Mentation/Cognition Normal Oropharynx Mallampati Class III
--- OUTSIDE RECORDS SUMMARY | 2024-09-26 04:06 | XMS_ITS ---
Author Organization [facility] in [place] Address [address] [place] [address] Care Team Providers Care Production Technologist Name Role Phone Pool Peace MD Primary Care Provider Chavez matute KaryRanjit Unavailable [phone] REASON FOR VISIT LDCT Result Encounters Encounter Location Date Provider Diagnosis Pulmonary Medicine [place] [address] [place] [address] 09/26/2024 Ranjitelisa Farrell Plan Of Treatment Next Appt Details Provider Name:Ranjitelisa Farrell, 09/11/2025 10:00:00 AM, [address] [place], [address], Progress Notes * Mike OSEI LDOB:1950 (74 yo M)Acc No.[id number]:09/26/2024 Patient: Mike LAUREN :1950 A ge:74 Y S ex:Male Address:[address] [place] [address], [address] * true * Date: Generated for Antonia roque/Raquel/eTransmitting on: 0 04/11/2025 01:57 PM EDT
--- OUTSIDE RECORDS SUMMARY | 2025-04-01 10:00 | XMS_ITS ---
Author Organization [facility] Address [address] [place] [address] Care Team Providers Care Business Continuity Analyst Name Role Phone Pool Peace Primary Care Provider Chas Boothe Unavailable [phone] REASON FOR VISIT RIGHT DISTAL FIB FRACTURE Encounters Encounter Location Date Provider Diagnosis [facility] [address] [place] [address] [address] [place] [address] 04/01/2025 Chas Arenas Plan Of Treatment Next Appt Details Provider Name:Chas Correa s, 05/06/2025 01:30:00 PM, [address] [facility], [address], [place], [address], Progress Notes * HUY MARTINEZ LDOB:1950 (75 yo M)Acc No.[id number]:04/01/2025 Patient: HUY LAUREN Provider: Rachelle Arenas DO :1950 A ge:75 Y S ex:Male Date:04/01/2025 Address:[address] [place] [phone] Pcp:Pool Peace Subjective: * Chief Complaints: * 1 . RIGHT DISTAL FIB FRACTURE. * Medical History: Objective: * Vitals: Assessment: Plan: * Treatment: Forms: * Images: * Electronic signature of Florentin Arenas DO on 04/11/2025 at 01:58 PM EDT Sign off status: Pending * Provider: Rachelle Arenas DO Date: 0 04/01/2025 Generated for Antonia roque/Raquel/Bassam on: 0 04/11/2025 01:58 PM EDT
--- NOTE | 2025-04-11 13:11 | PM.CN ---
Consult Note: HPI Data of Consult Patient: known to practice within the last 3 years Requesting Physician: Ena Rhoades NP Primary Care Provider: Pool Peace MD Consult Narrative Reason for consult: back and BLE pain Narrative: Mike Osei a pleasant 75 year old male returns for evaluation of low back and BLE pain. Pt noticing moderate to severe pain in low back and RLE with pain in left foot as well, increasing over the last 3 months. Pt has a hx of lumbar radiculopathy and lumbar DDD, pt has been engaged in provider guided HEP> 6 weeks without benefit, has failed tylenol, motrin, heat, and ice. Pain today 8/10 aching burning increasing to 8/10 with standing, walking, lifting, twisting, pushing, pulling. Pain improves with sitting and lying. Recently underwent lumbar MRI with results below. Since last visit underwent right L3/4 L4/5 TFESI with 80% improvement for 3 days and minimal relief at this time. cc:: CC: Ena Rhoades NP Review of Systems ROS Status of ROS 10 or more systems reviewed and unremarkable except as noted in history and below PFSH PFSH Social History Little interest or pleasure in doing things: not at all Feeling down, depressed, or hopeless: not at all Meds Home Medications and Allergies Home Medications ?Medication ?Instructions ?Recorded ?Confirmed ?Type ascorbic acid (vitamin C) 500 mg mg PO 06/17/23 History capsule atorvastatin 80 mg tablet 80 mg PO DAILY 06/17/23 04/01/25 History cholecalciferol (vitamin D3) 125 5,000 unit PO DAILY 06/17/23 04/01/25 History mcg (5,000 unit) capsule clopidogrel 75 mg tablet 75 mg PO DAILY 06/17/23 04/01/25 History fluticasone fur. 200 mcg-umeclid 1 inh inhalation DAILY 06/17/23 04/01/25 History 62.5 mcg-vilant 25 mcg inhalat.powder (Trelegy Ellipta) hydrochlorothiazide 25 mg tablet 25 mg PO DAILY 06/17/23 04/01/25 History losartan 100 mg tablet 100 mg PO DAILY 06/17/23 04/01/25 History metoprolol succinate 25 mg 25 mg PO DAILY 06/17/23 04/01/25 History tablet,extended release 24 hr multivitamin 1 tab PO DAILY 06/17/23 04/01/25 History omega 2-ybv-gsc-fish oil 60 mg-90 1 cap PO DAILY 06/17/23 04/01/25 History mg-500 mg capsule (Fish Oil) polyethylene glycol 3350 17 gram 17 g PO DAILY 5 days #14 ea 06/17/23 04/01/25 Rx oral powder packet (Miralax) magnesium 250 mg tablet 250 mg PO DAILY 02/21/25 04/01/25 History zinc 50 mg tablet 50 mg PO DAILY 02/21/25 04/01/25 History Allergies Allergy/AdvReac Type Severity Reaction Status Date / Time Penicillins Allergy Severe Swelling Verified 04/01/25 11:49 of Lip/Tongue/Throat morphine AdvReac Severe Vomiting Verified 04/01/25 11:49 Exam Constitutional Documenting provider has reviewed patient's vital signs: yes Common normals: no apparent distress, oriented x3, healthy appearing, alert and well nourished General appearance: cooperative HENMT Common normals: normocephalic, hearing grossly normal bilaterally and moist oral mucous membranes Head and scalp: normocephalic Eye Common normals: PERRL Pupil: PERRL Neck & C-Spine Common normals: full ROM General: normal visual inspection Chest Common normals: inspection of chest normal Respiratory Common normals: normal respiratory effort, no retractions and no use of accessory muscles Back & Pelvis Lumbar spine/lower back: pain with ROM, lumbar spinal tenderness Lumbar spinal tenderness location: L3 and L4 and straight leg raise negative bilaterally; ROM not limited Sacroiliac joints: SI joint(s) abnormal Other: right positive pastor(patricks), gaenslens, thigh thrust, compression test strength 5/5 in BLE sensation intact BLE Neuro Common normals: oriented x3 Sensorium/orientation: alert Gait (neuro): antalgic Motor exam: strength abnormal Psych Common normals: mental status grossly normal, thought process normal, cooperative, affect normal, speech normal and activity/motor behavior normal Speech: normal speech Thought process: normal thought process Results Imaging Lumbar MRI : Attestation: I have reviewed the pertinent imaging results. Radiologist's impression: FINDINGS: There is 2 mm of anterolisthesis of L4 upon L5 secondary to facet hypertrophy.. There is preservation of vertebral body heights. There is disc desiccation with mild disc height loss at L2-3, L3-L4, L4-5, and L5-S1. Mild Schmorl's node formation is noted in the endplates at T12, L1, and L2. The marrow signal is within normal limits. The conus terminates at the L1-L2 intervertebral disc level. No epidural or paraspinous fluid collection is appreciated. Simple cysts are noted in the renal cortices. Degenerative changes are noted in the sacroiliac joints. At T12-L1: There is a normal disc, central canal, and neural foramen. At L1-L2: There is a broad-based disc bulge with facet hypertrophy. There is mild to moderate spinal canal stenosis. There is mild bilateral neural foraminal stenosis. At L2-L3: There is a circumferential disc bulge with facet hypertrophy and ligamentum flavum thickening. There is a focal central disc extrusion with mild caudal migration. There is moderate to severe spinal canal narrowing. There is mild right and moderate left neural foraminal narrowing. At L3-L4: There is a broad-based disc bulge with endplate osteophyte formation right greater than left. There is facet hypertrophy. There is moderate spinal canal stenosis with mild left and moderate to severe right neural foraminal narrowing. Is mild mass effect on the exiting right L3 nerve roots. At L4-L5: There is 2 mm of anterolisthesis of L4 upon L5. There is a circumferential disc bulge with facet hypertrophy and ligamentum flavum thickening. There is severe spinal canal stenosis with moderate right neural foraminal narrowing. At L5-S1: There is a broad-based disc bulge with facet hypertrophy and endplate osteophyte formation. There is mild left and moderate right neural foraminal narrowing with mild spinal canal narrowing. Additional Findings Additional findings: If on a controlled substance or opioids, I have checked an [place]AR[place] report on this patient and there are no aberrancies noted in the prescribing history.??If on a controlled substance or opioid a drug screen was completed and reviewed within the last year, and if there has not been a drug screen completed we ordered one today to monitor higher risk, state monitored pain medication use. As part of providing excellent, safe, comprehensive care, the following was completed at our patient's visit: 1. A medication reconciliation and review to ensure accurate knowledge of current/active medications, including asking our patients to inform us about any [id number] medications or herbal remedies/nutritional supplements/alternative remedies. 2. A review to specifically ensure our patients have had annual screening for screening for depression, screening for tobacco use, and screening for unhealthy alcohol use. For concerning screenings had a discussion with the patient, provided patient education, and recommended follow-up with primary care provider when appropriate. If patient noted with a risk of falling, they received education on strength, gait, and balance training to prevent future risk of falling. Portions of this note may have been carried over from the previous visit and updated as appropriate. Please note this office utilizes paper charting in addition to the electronic medical record. A list of current medications, vitals, and PMH is available there as the clinical staff outside of myself do not have access to To8to charting during the clinic day operations. As part of providing quality comprehensive care the current medications, vitals, and PMH were reviewed in the paper chart. Assessment and Plan Assessment and Plan (1) Sacroiliitis: (2) Lumbar stenosis with neurogenic claudication: Assessment and Plan: KAYLIN 32% with moderate to severe pain impacting ADLs, standing, walking, lifting, social life, and travel (3) Lumbar spondylosis: (4) Myalgia, other site: Plan 75 year old male with chronic moderate to severe low back and RLE pain unresponsive to > 6 weeks of PT/Provider guided HEP, heat, ice, tylenol, and NSAIDs. lumbar xray and mri reviewed with pt, defer NS consultation at this time per pt request. increase gabapentin 600mg BID, risks vs benefits reviewed. continue baclofen 10mg TID PRN pain/spasms. proceed with right SIJ injection under fluoroscopy. f/u 2 weeks after injection
--- OUTSIDE RECORDS SUMMARY | 2025-04-11 13:58 | XMS_ITS | Encounter Summary ---
Author Organization [facility] Address [address] [place] [place] [address] Care Team Providers Care Correctional Captain Name Role Phone Pool Peace MD Primary Care Provider [phone] Reason for Visit * Reason Comments Med Refill Encounter Details Date Type Department Care Team (Late st Contact Info) Description 11/20/2022 Refill [facility] [address] [place] [address] Dev Iniguez MD [address] [facility] [address] [facility] [place] [address] Mixed hyperlipidemia Social History Tobacco Use Types Packs/Day Years Used Date Smoking Tobacco: Never Assessed Sex and Gender Information Value Date Recorded Sex Assigned at Not on file Legal Sex Male 12:14 AM EDT Gender Identity Not on file Sexual Orientation Not on file documented as of this encounter Plan of Treatment Not on file documented as of this encounter Visit Diagnoses Diagnosis Mixed hyperlipidemia documented in this encounter Care Teams Correctional Captain Relationship Specialty Start Date End Date Pool Peace MD [address] [place] [address] PCP - General 12/13/22 documented as of this encounter
--- OUTSIDE RECORDS SUMMARY | 2025-04-11 13:58 | XMS_ITS | Patient Health Record ---
Author Organization [facility] [place] Address [address] [place] [address] Care Team Providers Care Patrol Inspector Name Role Phone Pool Peace MD Primary Care Provider Leigha Gee Unavailable [phone] Allergies Allergen (clinical drug ingredient) Drug/Non Drug Allergy documented on EMR Reaction Allergy Type Onset Date Status Penicillin rash Drug Allergy Active Results Component Value Reference Range Notes CT Chest Low Dose for Screen ing* Reviewed date:09/26/2024 07:48:52 AM Interpretation: Performing Lab: Notes/Report: CT lung screening low-dose Reviewed date:09/26/2024 08:07:39 AM Interpretation: Performing Lab: Notes/Report: Source Facility: [place] [address] [place] [address] CT Scan Report Signed Patient: MIKE OSEI MR#: [id number] : 1950 Acct:[id number] Age/Sex: 74 / M ADM Date: 09/25/24 Loc: CT Attending Dr: Leigha Pedraza D.O. Ordering Physician: Leigha Pedraza D.O. Date of Service: 09/25/24 Procedure(s): CT lung screening low-dose Accession Number(s): [id number] cc: Pool Peace M.D. [place] [address] Patient Name: MIKE OSEI MRN: [facility]:[id number] date: 1950 Sex: M Assigned Patient Location: CT Current Patient Location: Accession/Order Number: [id number] Exam Date: 09/25/2024 09:21 Report Date: 09/26/2024 [...] M.D. Signed By: 09/26/2436 DD/ 2 TD/TT: Field Secretary: [place] [address] CT Scan Report Signed Patient: MIKE OSEI MR#: [id number] : 1950 Acct:[id number] Age/Sex: 74 / M ADM Date: 09/25/24 Loc: CT Attending Dr: Leigha Pedraza D.O. Ordering Physician: Leigha Pedraza D.O. Date of Service: 09/25/24 Procedure(s): CT edelmira g screening low-dose Accession Number(s): [id number] cc: Pool Peace M.D. [address] [address] Patient Name: MIKE OSEI MRN: [id number] date: 1950 Sex: M Assigned Patient Location: CT Current Patient Location: Accession/Order Numb er: [id number] Exam Date: 09:21 Report Date: 09/26/2024 07:33 [...] Dictated By: Umm Sandhu M.D. Signed By: 09/26/24735 DD/ 2 TD/TT: Field Secretary: Reason For Referral No Information Medications Medication [...] Administration Date Status Comme nts Flu, Fluad (60541) 65 yrs an d older, single-dose syringe Unknown 08/15/2024 Administered Flu, Fluzone High-Dose (2022 -2023) (67147) 65 yrs+ Unknown 09/15/2021 Administered SARS-COV-2 (COVID [...] Problem Status W/U Status Risk Notes Problem 198830619 Unspecified asthma with (acute) exacerbation (J45.901) Active confirmed Problem 557800649 Obesity, unspecified (E66.9) Active confirmed Problem Long-term current use of 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 (599025573) 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 (Z79.51) Active confirmed Problem Multiple pulmonary nodules (896039041) Multiple pulmonary nodules (R91.8) Active confirmed Problem Ex-tobacco user (finding) (090600171) History of tobacco abuse (Z87.891) Active confirmed 1ppd x 40 years, quit 2017 Problem Eosinophilic asthma (074984326) 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) Active confirmed Prior treatment: Trelegy 200 >>> Pulmicort/ Yupelri/Br ovana = Breztri > Trelegy 100, Stiloto, Duaklir Problem Body mass index 30.00 to 34.99 (64842635833281 7) Body mass index [BMI] 31.0-31.9, adult [...] Encounter Location Date Provider Diagnosis [facility] [place] [address] [place] [address] 07/11/2024 [facility] [place] [address] [place] [address] 09/11/2024 [facility] [place] [address] [place] [address] 09/26/2024 [facility] [place] [address] [place] [address] 09/12/2024 [facility] Eosinophilic asthma J82.83 ; Multiple pulmonary nodules R91.8 ; History of tobacco abuse Z87.891 ; 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 I am not an insurance sales agent, but I suggested he [...] quit 2017 LDCT scheduled for 09/25/2024. 09/12/2024 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 (ICD-10 - Z79.51) Patient was counseled to rinse & gargle with water after inhaled corticosteroid use. 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 Weight loss indicated: Decrease calories, increase activity. 09/12/2024 Other Plan Of Treatment Next Appt Details Provider Name:Leigha Pedraza, 09/11/2025 10:00:00 AM, [address] [place], [address], Insurance Providers Payer Name Payer Address Payer Phone Subscriber Number Group Number Insured Name Patient Relationship to Insured Coverage Start Date Coverage End Date [employer] MEDICARE [address] [address] [place], [place] [id number] Mike Osei Self - patient is the insured Medical (General) History Medical History History ICD Code Eosinophilic asthma J82.83 prison (current) use of inhaled stero ids Z79.51 [...] D deficiency E55.9 Surgical History Surgery Date(Month/Year) tonsillectomy cataract removal-bilateral vasectomy Bronchoscopy 03/11/2022 Stent-Right superficial femoral artery 1 hernia repair
--- OUTSIDE RECORDS SUMMARY | 2025-04-11 13:58 | XMS_ITS | Clinical Summary ---
Author Organization [facility] Address [address] [place] [address] Care Team Providers Care Car Sales Associate Name Role Phone Unavailable Primary Care Provider [...]
--- OUTSIDE RECORDS SUMMARY | 2025-04-11 13:58 | XMS_ITS | Encounter Summary ---
Author Organization [facility] Address [address] [place] [address] Care Team Providers Care Rectangular Tank Cooper Name Role Phone Pool Peace MD Primary Care Provider [phone] Pool Peace MD Unavailable Pool Peace MD Primary Care Provider [phone] Encounter Details Date Type Department Care Team [...] 08/27/2025 11:00 AM EST Office Visit [facility] [address] [place] [address] Pool Peace MD [address] [place] [address] documented as of this encounter Procedures Procedure Name Priority Date/Time Associated Diagnosis Comments XR CHEST 2V 11/14/2023 3:27 PM EST documented in this encounter Results * XR CHEST 2V (11/14/2023 3:27 PM EST) Anatomical Region Laterality Modality Other 11/14/2023 3:27 PM EST Narrative 11/14/2023 3:30 PM EST The [address] [address] XRay Report Signed Patient: MIKE OSEI MR#: [id number] : 1950 Acct:[id number] Age/Sex: 73 / M ADM Date: 11/14/23 Loc: RAD Attending Dr: Leigha Pedraza D.O. Ordering Physician: Leigha Pedraza D.O. Date of Service: 11/14/23 Procedure(s): XR chest 2V Accession Number(s): [id number] cc: Pool Peace M.D.; Leigha Pedraza D.O. The [address] [address] Patient Name: MIKE OSEI MRN: [id number] date: 1950 Sex: M Assigned Patient Location: [facility] Current Patient Location: [facility] Accession/Order Number: [id number] Exam Date: 11/14/2023 15:05 Report Date: 11/14/2023 [...] change cardiac and mediastinal silhouettes or angelina. Buckle Inspector technique today. Relatively mild peribronchial thickening at [...] Signed By: 11/14/23 1530 DD/ 1527 TD/TT: Sanding Machine Tender Automatic: Procedure Note Radiology, Radiologist, - 11/14/2023 [place] [address] XRay Report Signed Patient: MIKE OSEI LMR#: [id number] : 8Acct:[id number] Age/Sex: 73 / MADM Date: 11/14/23 Loc: RAD Attending Dr: Leigha Pedraza D.O. Ordering Physician: Leigha Pedraza D.O. Date of Service: 11/14/23 Procedure(s): XR chest 2V Accession Number(s): [id number] cc: Pool Peace M.D.; Leigha Pedraza D.O. The [place] [address] Patient Name: MIKE OSEI MRN: [facility]:[id number] date: 1950 Sex: M Assigned Patient Location: [facility] Current Patient Location: [facility] Accession/Order Number: [id number] Exam Date: 11/14/2023 15:05 Report Date: 11/14/2023 [...] change cardiac and mediastinal silhouettes or angelina. Buckle Inspector technique today. Relatively mild peribronchial thickening at [...] M.D. Signed By:11/14/23 1530 DD/ 1527 TD/TT: Sanding Machine Tender Automatic: us Generic External Data Provider [facility] Final Result documented in this encounter Visit Diagnoses Not on filedocumented in this encounter Care Teams Rectangular Tank Cooper Relationship Specialty Start Date End Date Polo Peace MD PCP - General Family Medicine 10/24/22 08/14/24 Pool Peace MD [address] [place] [address] PCP - [facility] 11/24/23 02/21/68 Pool Peace MD [address] [place] [address] PCP - General Family Medicine 08/15/24 documented as of this encounter
--- OUTSIDE RECORDS SUMMARY | 2025-04-11 13:58 | XMS_ITS | Clinical Summary ---
Author Organization [facility] Address [address] [place] [address] Care Team Providers Care Er Registrar Name Role Phone Pool Peace MD Primary [...] patient's age to complete this topic Insurance [facility] MEDICARE Care Teams Er Registrar Relationship Specialty Start Date End Date Pool Peace MD [address] [place] [address] PCP - General Family Medicine 03/12/24
--- OUTSIDE RECORDS SUMMARY | 2025-04-11 13:58 | XMS_ITS | Encounter Summary ---
Author Organization [facility] Address [address] [place] [address] Care Team Providers Care Pan Greaser Name Role Phone Pool Peace MD Primary Care Provider [phone] Reason for Visit * Reason Comments Med Refill Encounter Details Date Type Department Care Team (Late st Contact Info) Description 10/29/2022 Refill [facility] Cardiology [address] [place] [address] Pricila Soto, BENCH MACHINE OPERATOR [address] [place] [address] Essential (primary) hypertension Social History Tobacco Use [...] hypertension documented in this encounter Care Teams Pan Greaser Relationship Specialty Start Date End Date Pool Peace MD [address] [place] [address] PCP - General 12/13/22 documented as of this encounter
--- OUTSIDE RECORDS SUMMARY | 2025-04-11 13:58 | XMS_ITS | Referral Summary ---
Author Organization [facility] Address [address] [place] [address] Care Team Providers Care Patient Service Technician Pst Name Role Phone Pool Peace MD Primary Care Provider Encounters Date Type Department Care Team Description 03/25/2025 9:45 AM EDT Office Visit [address] [phone] Dev Iniguez MD Pre-op evaluation (Primary Dx); Coronary artery disease involving [place] coronary artery of [place] heart without angina pectoris; Peripheral vascular disease; Primary hypertension; Mixed hyperlipidemia; Stage 3a chronic kidney disease (CMS/HCC) 03/22/2025 Orders Only [address] [phone] ProviderOmari MD from Last 3 Months Allergies Active Allergy Reactions Criticality Noted Date Comments Morphine Nausea And Vomiting 07/13/2024 Penicillins Anaphylaxis,Angioede ma,Hives,Itching,R kamila High 10/24/2006 Medications fluticasone-umeclidi n-vilanter 100-62.5-25 mcg blister with device Inhale 1 puff in the morning. Active losartan (Cozaar) 100 mg tablet Take 100 mg by mouth in the morning. Active hydroCHLOROthiazide (HYDRODiuril) 25 mg tablet Take 25 mg by mouth in the morning. Active atorvastatin (Lipitor) 80 mg tabletIndications:Jus rderline hyperlipidemia Take 1 tablet (80 mg) by mouth in the morning. 90 tablet 3 4 06/05/20 25 Active amLODIPine (Norvasc) 10 mg tabletIndications:Pr imary hypertension TAKE 1 TABLET BY MOUTH EVERY DAY IN THE MORNING 90 tablet 3 5 Active metoprolol succinate XL (Toprol-XL) 50 mg 24 hr tabletIndications:Es sential (primary) hypertension TAKE 1 TABLET BY MOUTH EVERY DAY IN THE MORNING 90 tablet 3 5 Active clopidogrel (Plavix) 75 mg tabletIndications:Co ronary atherosclerosis due to calcified coronary lesion (CODE) TAKE 1 TABLET (75 MG) BY MOUTH IN THE MORNING 90 tablet 3 5 12/19/19 26 Active baclofen (Lioresal) 10 mg tablet Take 10 mg by mouth three times daily. Active cholecalciferol (D3-5) 5,000 Units tablet Take 5,000 Units by mouth 3 (three) times a week. Active gabapentin (Neurontin) 300 mg capsule Take 300 mg by mouth twice a day. Active magnesium oxide (Mag-Ox) 250 mg magnesium tablet Take 250 mg by mouth in the morning. Active multivitamin tablet Take 1 tablet by mouth in the morning. Active terbinafine (LamISIL) 250 mg tablet Take 250 mg by mouth in the morning. Active omega-3 fatty acids-fish oil 360-1,200 mg capsule Take 1 capsule by mouth in the morning. Active coenzyme Q-10 200 mg capsule Take 200 mg by mouth in the morning. Active vitamin D3-folic acid 125 mcg (5,000 unit)-1 mg tablet Take 125 mcg by mouth in the morning. Active Active Problems Problem Noted Date Diagnosed Date Obesity 03/25/2025 Overview (03/25/2025): BMI 30.85 (as of 05/08/24) Retinal detachment 03/20/2025 Encounter for long-term (current) use of medicat ions 02/13/2025 Fatigue 02/13/2025 Encounter for Medicare annual wellness exam 07/[address] of the abdomen 02/14/2024 Allergic rhinitis due to pollen 02/14/2024 BPH without urinary obstruction 02/14/2024 Cholelithiasis without cholecystitis 02/14/2024 Chronic kidney disease (CKD), stage III (moderat e) 02/14/2024 Chronic obstructive pulmonary disease (COPD) DDD (degenerative disc disease), lumbar 02/14/20 Dyslipidemia 02/14/2024 Essential hypertension, benign 02/14/2024 Obstructive sleep apnea 02/14/2024 Osteoarthritis of right knee 02/14/2024 Vitamin D deficiency 02/14/2024 Mixed hyperlipidemia 12/15/2022 Assessment & Plan (07/13/2024 [...] drink = 0.6 oz pur e alcohol) 12 pack per week [place] [employer] Answer Date Rec [...] Sign Reading Time Taken Comments Blood Pressure 143/71 03/25/2025 9:40 AM EDT Pulse 74 03/25/2025 9:40 AM EDT Temperature 36.5 C (97.7 F) 12/18/2019 2:16 PM EST Respiratory Rate - - Oxygen Saturation 97% 03/25/2025 9:40 AM EDT Inhaled Oxygen Concentration - - Weight 96.6 kg (213 lb) 03/25/2025 9:40 AM EDT Height 177.8 cm (5' 10 ) 03/25/2025 9:40 AM EDT Body Mass Index 30.56 03/25/2025 9:40 AM EDT Plan of Treatment Not on file Procedures Procedure Name Priority Date/Time Associated Diagnosis Comments ECG 12 LEAD UNIT PERFORMED Routine 03/25/2025 9:40 AM EDT Pre-op evaluation CBC Routine 02/13/2025 1:37 PM EDT COMPREHENSIVE METABOLIC PANEL Routine 02/13/2025 1:37 PM EDT from Last 3 Months Results * ECG 12 lead unit performed (03/25/2025 9:40 AM EDT) Dev Iniguez MD ECG ORDERABLES Final Result * CBC (02/13/2025 1:37 PM EDT) Blood Venous blood specimen / Unknown Historical Provider LAB BLOOD ORDERABLES Consuelo l Result * Comprehensive metabolic panel (02/13/2025 1:37 PM EDT) Blood Venous blood specimen / Unknown us Historical Provider LAB BLOOD ORDERABLES Consuelo katz Result from Last 3 Months Insurance [employer] MEDICARE ADVANTAGE Care Teams Patient Service Technician Pst Relationship Specialty Start Date End Date Pool Peace MD [address] [place] [address] PCP - General 12/13/22
--- OUTSIDE RECORDS SUMMARY | 2025-04-11 13:58 | XMS_ITS | Encounter Summary ---
Author Organization [facility] Address [address] [place] [address] Care Team Providers Care Welfare Officer Name Role Phone Pool Peace MD Primary Care Provider [phone] Reason for Visit * Reason Comments Med Refill Encounter Details Date Type Department Care Team (Late st Contact Info) Description 09/18/2022 Refill [facility] [address] [place] [phone] Dev Iniguez MD [address] [facility] [place] [phone] Coronary atherosclerosis due to calcified coronary lesion [...] (CODE) documented in this encounter Care Teams Welfare Officer Relationship Specialty Start Date End Date Pool Peace MD [address] [place] [address] PCP - General 12/13/22 documented as of this encounter
--- OUTSIDE RECORDS SUMMARY | 2025-04-11 13:58 | XMS_ITS | Encounter Summary ---
Author Organization [facility] [employer] Address [id number] [address] [place] [address] Care Team Providers Care Shrimp Peeling Machine Operator Name Role Phone Pool Peace MD Primary Care Provider [phone] Reason for Visit * Reason Comments Med Refill Encounter Details Date Type Department Care Team (Late st Contact Info) Description 08/10/2017 Refill [facility] [address] [place] [address] [place] [phone] Nir Simpson, DO [address] [place] [address] Social History Tobacco Use Types Packs/Day Years [...] documented as of this encounter Care Teams Shrimp Peeling Machine Operator Relationship Specialty Start Date End Date Pool Peace MD PCP - General 09/16/17 documented as of this encounter
--- OUTSIDE RECORDS SUMMARY | 2025-04-11 13:58 | XMS_ITS | Clinical Summary ---
Author Organization [facility] Address [address] [place] [address] Care Team Providers Care Patent Prosecution Attorney Name Role Phone Pool Peace MD Unavailable Pool Peace MD Primary Care Provider [phone] Allergies Active Allergy Reactions Criticality Noted Date Comments Morphine Unknown,Nausea And Vomiting,Other Penicillins Anaphylaxis,Angioede ma,Hives,Itching,O ther,Rash,Unknown High 10/24/1988 Medications losartan (Cozaar) 100 MG tabletIndication s:Essential (primary) hypertension,Erasmo ign essential hypertension Take 1 tablet (100 mg) by mouth Daily 100 tablet 3 4 025 Active Trelegy Ellipta 200-62.5-25 MCG/ACT aerosol powder 4 Active atorvastatin (Lipitor) 40 MG tablet Take 80 mg by mouth Daily Active clopidogrel (Plavix) 75 MG tablet Take 75 mg by mouth Daily 4 Active metoprolol succinate XL (Toprol-XL) 50 MG 24 hr tablet Take 50 mg by mouth in the morning. Active hydroCHLOROthiaz betito (HYDRODiuril) 25 MG tabletIndication s:Essential (primary) hypertension,Erasmo ign essential hypertension TAKE 1 TABLET BY MOUTH EVERY DAY 90 tablet 3 5 Active hydroCHLOROthiaz betito (HYDRODiuril) 25 MG tabletIndication s:Essential (primary) hypertension,Erasmo ign essential hypertension TAKE 1 TABLET BY MOUTH EVERY DAY 90 tablet 3 4 025 Discontinued Active Problems Problem Noted Date Diagnosed Date [...] BPH without urinary obstruction 02/14/2024 CAD in [place] artery 02/14/2024 Cholelithiasis without cholecystitis 02/14/2024 Chronic obstructive pulmonary disease (COPD) Assessment & Plan (02/13/2025 10:31 AM EDT): Breathing stable and continue inhalers. Follow with pulmonology. Chronic kidney disease (CKD), stage III (moderat e) 02/14/2024 DDD (degenerative disc disease), lumbar 02/14/20 Assessment & Plan (02/13/2025 10:31 AM EDT): Pain worse after using walking boot. Treat with prednisone. Refer back to pain management. Dyslipidemia 02/14/2024 Osteoarthritis of right knee 02/14/2024 Obstructive sleep apnea 02/14/2024 PAD (peripheral artery disease) 02/14/2024 Assessment & Plan (02/13/2025 10:32 AM EDT): Continue medication. Allergic rhinitis due to pollen 02/14/2024 Vitamin D deficiency 02/14/2024 Encounters Date Type Department Care Team Description 03/16/2025 Refill [facility] [address] [place] [address] Pool Peace MD Essential (primary) hypertension ; Benign essential hypertension 03/08/2025 Clinisync Result Encounter [facility] External Department Unsolicited Provider, Generic External Data 02/21/2025 Clinisync Result Encounter [facility] External Department Unsolicited Provider, Generic External Data 02/18/2025 Clinisync Result Encounter [facility] External Department Unsolicited Provider, Generic External Data 02/13/2025 9:30 AM EDT Office Visit [facility] [address] [place] [address] Pool Peace MD Essential hypertension, benign (Primary Dx); Chronic obstructive pulmonary disease, unspecified COPD type (HCC); Fatigue, unspecified type; Degeneration of intervertebral disc of lumbar region with discogenic back pain; PAD (peripheral artery disease); Stage 3b chronic kidney disease (CMS-HCC); Encounter for long-term (current) use of medications 02/13/2025 Results Follow-Up [facility] [address] [place] [address] Pool Peace MD 02/13/2025 Clinisync Result Encounter [facility] External Department Unsolicited Pool Peace MD 02/13/2025 Bamboo flowsheet [facility] [address] [place] [phone] Pool Peace MD 02/06/2025 Travel 01/14/2025 Clinisync [...] week 02/08/2024 How often do you attend [facility] or am[facility] services? More than 4 times per year 02/08/2024 Do you belong to any clubs o r organizations such as druze groups, unions, [employer] or athletic groups, or school groups? Yes [...] Recorded Patient Health Questionnaire-2 Score 0 08/15/2024 [facility] - Occupational Stress Questionnaire Answer Date Recorded [...] place to sleep or slept in a long-term (including now)? No 02/08/2024 Sex and Gender [...] EST Office Visit [facility] [address] [place] [phone] Pool Peace MD [address] [place] [address] Health Maintenance Due Date Last Done Comments [...] METABOLIC PANEL Routine 02/13/2025 11:05 AM EDT [facility] LIVER PANEL Routine 02/13/2025 11:0 5 AM EDT XR ANKLE RT MIN 3V 01/14/2025 2: 53 PM EDT from Last 3 Months Results * MR LUMBAR SPINE WO CON (03/08/2025 3:00 PM EDT) Anatomical Region Laterality Modality Other 03/08/2025 3:00 PM EDT Narrative 03/08/2025 3:02 PM EDT The [place] [id number] Magnetic Resonance Report Signed Patient: MIKE OSEI MR#: [id number] : 1950 Acct:[id number] Age/Sex: 75 / M ADM Date: 03/08/25 Loc: MRI Attending Dr: Maricarmen Shaw NP Ordering Physician: Maricarmen Shaw NP Date of Service: 03/08/25 Procedure(s): MR lumbar spine wo con Accession Number(s): [id number] cc: Maricarmen Shaw NP; Pool Peace M.D. The [address] [address] Patient Name: MIKE OSEI MRN: [id number] date: 1950 Sex: M Assigned Patient Location: MRI Current Patient Location: MRI Accession/Order Number: [id number] Exam Date: 03/08/2025 14:55 Report Date: 03/08/2025 [...] Lentz M.D. 03/08/2025 3:00 PM Dictation Location: [place] [address] Electronically authenticated by: [id number] Y Date: 03/08/2025 15:00 Dictated By: Sanket Lentz M.D. Signed By: 03/08/25 1502 DD/ 1500 TD/TT: Shake Out Worker: Procedure Note Radiology, Radiologist, - 03/08/[address] [address] Magnetic Resonance Report Signed Patient: MIKE OSEI LMR#: [id number] : 1950cct:[id number] Age/Sex: 75 / MADM Date: 03/08/25 Loc: MRI Attending Dr: Maricarmen Shaw NP Ordering Physician: Maricarmen Shaw NP Date of Service: 03/08/25 Procedure(s): MR lumbar spine wo con Accession Number(s): [id number] cc: Maricarmen Shaw NP; Pool Peace M.D. The [address] [address] Patient Name: MIKE OSEI MRN: [id number] date: 1950 Sex: M Assigned Patient Location: MRI Current Patient Location: MRI Accession/Order Number: [id number] Exam Date: 03/08/2025 14:55 Report Date: 03/08/2025 [...] Lentz M.D. 03/08/2025 3:00 PM Dictation Location: [place] [address] Electronically authenticated by: [id number] Y Date: 5:00 Dictated By: Sanket Lentz M.D. Signed By:03/08/25 1502 DD/ 1500 TD/TT: Shake Out Worker: Generic External Data Provider [facility] Final Result * XR LUMBAR SPINE 6V W BENDING (02/21/2025 11:59 AM EDT) Anatomical Region Laterality Modality Other 02/21/2025 11:5 9 AM EDT Narrative 02/21/2025 12:01 [place] [address] XRay Report Signed Patient: MIKE OSEI MR#: [id number] : 1950 Acct:[id number] Age/Sex: 75 / M ADM Date: 02/21/25 Loc: RAD Attending Dr: Maricarmen Shaw NP Ordering Physician: Maricarmen Shaw NP Date of Service: 02/21/25 Procedure(s): XR lumbar spine 6V w bending Accession Number(s): [id number] cc: Maricarmen Shaw NP; Pool Peace M.D. The [address] [address] Patient Name: MIKE OSEI MRN: [facility]:[id number] date: 1950 Sex: M Assigned Patient Location: [facility] Current Patient Location: [facility] Accession/Order Number: [id number] Exam Date: 02/21/2025 11:57 Report Date: 02/21/2025 [...] Jr., D.O. 02/21/2025 11:59 AM Dictation Location: [place] [address] Electronically authenticated by: [id number] Y Date: 02/21/2025 11:59 Dictated By: Ezra Lacy M.D. Signed By: 02/21/25 1201 DD/ 1159 TD/TT: Shake Out Worker: Procedure Note Radiology, Radiologist, MD - 02/21/2025 [place] [address] XRay Report Signed Patient: MIKE OSEI LMR#: [id number] : 8Acct:[id number] Age/Sex: 75 / MADM Date: 02/21/25 Loc: ANDREI Attending Dr: Maricarmen Shaw NP Ordering Physician: Maricarmen Shaw NP Date of Service: 02/21/25 Procedure(s): XR lumbar spine 6V w bending Accession Number(s): [id number] cc: Maricarmen Shaw NP; Pool Peace M.D. The [address] [address] Patient Name: MIKE OSEI MRN: [id number] date: 1950 Sex: M Assigned Patient Location: [facility] Current Patient Location: [facility] Accession/Order Number: [id number] Exam Date: 02/21/2025 11:57 Report Date: 02/21/2025 [...] Jr., D.OOtoniel 02/21/2025 11:59 AM Dictation Location: [place] [address] Electronically authenticated by: [id number] Y Date: 1:59 Dictated By: Ezra Lacy M.D. Signed By:02/21/25 1201 DD/ 1159 TD/TT: Shake Out Worker: Generic External Data Provider [facility] Final Result * XR ANKLE RT MIN 3V (02/18/2025 4:01 PM EDT) Only the most recent of2 resultswithin the time period is included. Anatomical Region Laterality Modality Other 02/18/2025 4:01 PM EDT Narrative 02/18/2025 4:04 PM EDT The [place] [id number] XRay Report Signed Patient: MIKE OSEI MR#: [id number] : 1950 Acct:[id number] Age/Sex: 75 / M ADM Date: 02/18/25 Loc: EC Attending Dr: Chas Arenas M.D. Ordering Physician: Chas Arenas M.D. Date of Service: 02/18/25 Procedure(s): XR ankle RT min 3V Accession Number(s): [id number] cc: Chas Arenas M.D.; Pool Peace M.D. The [address] [address] Patient Name: MIKE OSEI MRN: [facility]:[id number] date: 1950 Sex: M Assigned Patient Location: Current Patient Location: Accession/Order Number: [id number] Exam Date: 02/18/2025 16:00 Report Date: 02/18/2025 [...] White Jr.OOtoniel 02/18/2025 4:01 PM Dictation Location: [place] [address] Electronically authenticated by: [id number] Y Date: 02/18/2025 16:01 Dictated By: Ezra Lacy M.D. Signed By: 02/18/25 1604 DD/ 160 TD/TT: Shake Out Worker: Procedure Note Radiology, Radiologist, MD - 02/18/2025 The [place] [id number] XRay Report Signed Patient: MIKE OSEI LMR#: [id number] : 1950cct:[id number] Age/Sex: 75 / MADM Date: 02/18/25 Loc: EC Attending Dr: Chas Arenas M.D. Ordering Physician: Chas Arenas M.D. Date of Service: 02/18/25 Procedure(s): XR ankle RT min 3V Accession Number(s): [id number] cc: Chas Arenas M.D.; Pool Peace M.D. The [place] [address] Patient Name: MIKE OSEI MRN: [id number] date: 1950 Sex: M Assigned Patient Location: Current Patient Location: Accession/Order Number: [id number] Exam Date: 02/18/2025 16:00 Report Date: 02/18/2025 [...] Jr., D.O. 02/18/2025 4:01 PM Dictation Location: [place] [address] Electronically authenticated by: [id number] Y Date: 6:01 Dictated By: Ezra Lacy M.D. Signed By:02/18/25 1604 DD/ 1601 TD/TT: Shake Out Worker: [facility] External Data Provider [facility] Final Result * [facility] LIVER PANEL (02/13/2025 11:05 AM EDT) [...] Pool Peace MD [facility] Final Result [facility] * (ABNORMAL) ALL CBC WITH AUTO DIFF (02/13/2025 11:05 AM EDT) TB WBC 7.8 4.0 - 11.0 10 3/uL [...] 02/13/2025 11:39 AM EDT Pool Peace MD CLIN[facility] Final Result Performing Organization Address City/[facility] Co de Phone Number CLINKAYLYN TB * (ABNORMAL) ALL BASIC METABOLIC PANEL (02/13/2025 [...] 0.70 - 1.30 mg/dL TBH TBH EGFR-AF [place] 57(L) >=60 mL/min/1.7 3m 2 TBH TBH EGFR-NON AF [place] 47(L) >=60 mL/min/1.7 3m 2 TBH BUN CREATININE RATIO 13.7 TBH CALCIUM 10.1 8.5 - 10.1 mg/dL TBH 02/13/2025 11:0 5 AM EDT 02/13/2025 11:07 AM EDT Narrative [facility] - 02/13/2025 11:27 AM EDT Pool COMBSISYELE Final Result Performing Organization Address City/[facility] Co de Phone Number LAI TB from Last 3 Months Insurance [employer] MEDICARE Care Teams Patent Prosecution Attorney Relationship Specialty Start Date End Date Pool Peace MD [address] [place] [address] PCP - [facility] 11/24/23 02/21/68 Pool Peace MD [address] [place] [address] PCP - General Family Medicine 08/15/24
--- OUTSIDE RECORDS SUMMARY | 2025-04-11 13:58 | XMS_ITS | Encounter Summary ---
Author Organization [facility] Address [address] [place] [address] Care Team Providers Care Planogrammer Name Role Phone Pool Peace MD Primary Care Provider [phone] Reason for Visit * Reason Comments Med Refill Encounter Details Date Type Department Care Team (Late st Contact Info) Description 12/10/2022 Refill [facility] [address] [place] [address] Dev Iniguez MD [address] [facility] [place] [address] Borderline hyperlipidemia (Primary Dx) Social [...] Primary documented in this encounter Care Teams Planogrammer Relationship Specialty Start Date End Date Pool Peace MD [address] [place] [address] PCP - General 12/13/22 documented as of this encounter
--- OUTSIDE RECORDS SUMMARY | 2025-04-11 13:58 | XMS_ITS | Patient Health Record ---
Author Organization [facility] Address [address] [place] [address] Care Team Providers Care Applications Coordinator Name Role Phone Pool Peace Primary Care Provider Chas Boothe Unavailable [phone] Salina Gunter Unavailable Reason For Referral No Information Problems Problem Type SNOMED Code ICD Code Onset Dates Problem Status W/U Status Risk Notes Problem [id number] Closed fracture of distal end of right fibula with routine healing, unspecified fracture morphology, subsequent encounter (S82.831D) Active confirmed Encounters Encounter Location Date Provider Diagnosis [facility] [place] [facility] [address] [place] [address] 12/25/2024 Chas Arenas Closed fracture of distal end of right fibula, unspecified fracture morphology, [facility] [address] [place] [address] [place] [address] 12/31/2024 Salina Gunter Closed fracture of distal end of right fibula with routine healing, unspecified fracture morphology, subsequent encounter S82.831D [facility] [address] [place] [address] [place] [address] 01/14/2025 Chsa Arenas Closed fracture of distal end of right fibula with routine healing, unspecified fracture morphology, subsequent [facility] [address] [place] [address] [place] [address] 02/18/2025 Chas Arenas Closed fracture of distal [...] (ICD-10 - S82.831D) Right distal fibula fracture 12/25/2024 Other I [...] with repeat x-rays. Right distal fibula fracture 02/18/2025 Other Patient [...] Order Date SCC- ANKLE 3 VIEW RIGHT [id number] 01/14/2025 SCC- ANKLE 3 VIEW RIGHT [id number] 02/18/2025 Ankle, right 3v - [id number] 12/25/2024 Ankle, right 3v - [id number] 12/31/2024 Stress view manual stress by physician 7 7071 12/25/2024 Next Appt Details Provider Name:Chas cobb, 05/06/2025 01:30:00 PM, [address] [facility], [address], [place], [address], Insurance Providers Payer Name Payer Address Payer Phone Subscriber Number Group Number Insured Name Patient Relationship to Insured Coverage Start Date Coverage End Date MEDICARE [employer] AARP [address] [address] [place] [address] [id number] MIKE MARTINEZ Self - patient is the insured 5
--- OUTSIDE RECORDS SUMMARY | 2025-04-11 13:58 | XMS_ITS | Encounter Summary ---
Author Organization [facility] Address [address] [place] [address] Care Team Providers Care Executive Talent Acquisition Consultant Name Role Phone Pool Peace MD Primary Care Provider [phone] Pool Peace MD Unavailable Pool Peace MD Primary Care Provider [phone] Encounter Details Date Type Department Care Team [...] Office Visit [facility] [address] [place] [address] Pool Peace MD [address] [place] [address] documented as of this encounter Procedures Procedure Name Priority Date/Time Associated Diagnosis Comments VASC US ANKLE BRACHIAL INDEX (GEETHA) WITH EXERCISE 01/10/2024 2:06 PM EDT documented in this encounter Results * Vascular US ankle brachial index (GEETHA) with exercise (01/10/2024 2:06 PM EDT) Anatomical Region Laterality Modality Lower Extremities Ultrasound 01/10/2024 2:06 PM EDT Narrative 01/10/2024 11:02 [place] [address] Cardiology Report Signed Patient: MIKE OSEI MR#: [id number] : 1950 Acct:[id number] Age/Sex: 73 / M ADM Date: 01/10/24 Loc: CARD Attending Dr: ARON ANDERSON Ordering Physician: ARON ANDERSON Date of Service: 01/10/24 Procedure(s): CA pre/post exercise vasc VARINDER Accession Number(s): [id number] cc: ARON ANDERSON ; Pool Peace M.D. [facility] Test Date: 2024-01-10 Pat Name: MIKE OSEI Department: Room: - Gender: Male Silver Buffer: : 1950 Requested By: ARON ANDERSON M.D. Order Number: [id number] Reading MD: JEB ROJAS Interpretive Statements Biphasic [...] D.O. Signed By: 01/10/24230101/10/242301 DD/ 1406 TD/TT: Staff Mine Warfare Officer: Procedure Note Radiology, Radiologist, - 01/10/2024 [facility] [place] [id number] Cardiology Report Signed Patient: MIKE OSEI LMR#: [id number] : 8Acct:[id number] Age/Sex: 73 / MADM Date: 01/10/24 Loc: CARD Attending Dr: ARON ANDERSON Ordering Physician: ARON ANDERSON Date of Service: 01/10/24 Procedure(s): CA pre/post exercise vasc VARINDER Accession Number(s): [id number] cc: ARON ANDEROSN ; Pool Peace M.D. [facility] Test Date: 2024-01-10 Pat Name: MIKE OSEI Department: Room: - Gender: Male Silver Buffer: : 1950 Requested By: ARON ANDERSON M.D. Order Number: [id number] Reading MD: JEB ROJAS Interpretive Statements Biphasic [...] D.O. Signed By:01/10/24230101/10/24 2302 DD/ 1406 TD/TT: Staff Mine Warfare Officer: us Generic External Data Provider IMG US PROCEDURES Final Result documented in this encounter Visit Diagnoses Not on filedocumented in this encounter Care Teams Executive Talent Acquisition Consultant Relationship Specialty Start Date End Date Pool Peace MD PCP - General Family Medicine 10/24/22 08/14/24 Pool Peace MD [address] [place] [address] PCP - [facility] 11/24/23 02/21/68 Pool Peace MD [address] [place] [address] PCP - General Family Medicine 08/15/24 documented as of this encounter
--- OUTSIDE RECORDS SUMMARY | 2025-04-11 13:58 | XMS_ITS | Encounter Summary ---
Author Organization [facility] Address [address] [place] [place] [address] Care Team Providers Care Journeyman Meat Cutter Name Role Phone Pool Peace MD Primary Care Provider [phone] Reason for Visit * Reason Comments Med Refill Encounter Details Date Type Department Care Team (Late st Contact Info) Description 10/16/2022 Refill [facility] [address] [place] [phone] Dev Iniguez MD [address] [facility] [place] [phone] Coronary atherosclerosis due to calcified coronary lesion [...] (CODE) documented in this encounter Care Teams Journeyman Meat Cutter Relationship Specialty Start Date End Date Pool Peace MD [address] [place] [address] PCP - General 12/13/22 documented as of this encounter
--- OUTSIDE RECORDS SUMMARY | 2025-04-11 13:58 | XMS_ITS | Encounter Summary ---
Author Organization [facility] Address [address] [place] [address] Care Team Providers Care Residential Sales Manager Name Role Phone Pool Peace MD Primary Care Provider [phone] Reason for Visit * Reason Comments Med Refill Encounter Details Date Type Department Care Team (Late st Contact Info) Description 03/11/2023 Refill [facility] [address] [place] [phone] Dev Iniguez MD [address] [facility] [address] [facility] [place] [phone] Borderline hyperlipidemia Social History Tobacco Use Types [...] hyperlipidemia documented in this encounter Care Teams Residential Sales Manager Relationship Specialty Start Date End Date Pool Peace MD [address] [place] [address] PCP - General 12/13/22 documented as of this encounter
--- OUTSIDE RECORDS SUMMARY | 2025-04-11 13:58 | XMS_ITS | Encounter Summary ---
Author Organization [facility] Address [address] [place] [address] Care Team Providers Care Cooperative Education Director Name Role Phone Pool Peace MD Primary Care Provider [phone] Pool Peace MD Unavailable Pool Peace MD Primary Care Provider [phone] Encounter Details Date Type Department Care Team [...] 08/27/2025 11:00 AM EST [facility] [address] [place] [address] Pool Peace MD [address] [place] [address] documented as of this encounter Procedures Procedure Name Priority Date/Time Associated Diagnosis Comments CA ECHO DOPPLER COMPLETE 01/12/2024 2:01 PM EDT documented in this encounter Results * CA ECHO DOPPLER COMPLETE (01/12/2024 2:01 PM EDT) Anatomical Region Laterality Modality Other 01/12/2024 2:01 PM EDT Narrative 01/12/2024 2:02 [place] [address] Cardiology Report Signed Patient: MIKE MARTINEZ MR#: [id number] : 1950 Acct:[id number] Age/Sex: 73 / M ADM Date: 01/10/24 Loc: CARD Attending Dr: ARON ANDERSON Ordering Physician: ARON ANDERSON Date of Service: 01/10/24 Procedure(s): CA echo doppler complete Accession Number(s): [id number] cc: ARON ANDERSON ; Pool Peace M.D. Patient Name: MIKE MARTINEZ MR#: [id number] : 1950 Exam Date: 01/10/2024 Ordering Doctor: [...] Signed By: 01/12/24 1402 DD/ 1401 TD/TT: Porcelain Waxer: Procedure Note Radiology, Radiologist, MD - 01/12/2024 [place] [address] Cardiology Report Signed Patient: MIKE MARTINEZ LMR#: [id number] : 1950cct:[id number] Age/Sex: 73 / MADM Date: 01/10/24 Loc: CARD Attending Dr: ARON ANDERSON Ordering Physician: ARON ANDERSON Date of Service: 01/10/24 Procedure(s): CA echo doppler complete Accession Number(s): [id number] cc: ARON ANDERSON ; Pool Peace M.D. Patient Name: MIKE MARTINEZ MR#: [id number] : 1950 Exam Date: 01/10/2024 Ordering Doctor: [...] M.D. Signed By:01/12/24 1402 DD/ 1401 TD/TT: Porcelain Waxer: Generic External Data Provider [facility] Final Result documented in this encounter Visit Diagnoses Not on filedocumented in this encounter Care Teams Cooperative Education Director Relationship Specialty Start Date End Date Pool Peace MD PCP - General Family Medicine 10/24/22 08/14/24 Pool Peace MD [address] [place] [address] PCP - [facility] 11/24/23 02/21/68 Pool Peace MD [address] [place] [address] PCP - General Family Medicine 08/15/24 documented as of this encounter
--- OUTSIDE RECORDS SUMMARY | 2025-04-11 13:58 | XMS_ITS | Clinical Summary ---
Author Organization [facility] Address [address] [place] [address] Care Team Providers Care Therapy Technician Name Role Phone Pool Peace MD Primary Care Provider [phone] Allergies Active Allergy Reactions Criticality Noted Date [...] 10 mg by mouth three times daily. 5 Active cholecalciferol (D3-5) 5,000 Units tablet Take 5,000 Units by mouth 3 (three) times a week. Active gabapentin (Neurontin) 300 mg capsule Take 300 mg by mouth twice a day. 5 Active magnesium oxide (Mag-Ox) 250 mg magnesium [...] Description 03/25/2025 9:45 AM EDT Office Visit [address] [address] Dev Iniguez MD Pre-op evaluation (Primary Dx); Coronary artery disease involving sa[place] coronary artery of sa[place] heart without angina pectoris; Peripheral vascular disease; Primary hypertension; Mixed hyperlipidemia; Stage 3a chronic kidney disease (CMS/HCC) 03/22/2025 Orders Only [address] [phone] ProviderOmari MD from Last 3 Months Family History Medical History Relation Name Comments Cancer Brother Cancer Mother Diabetes Paternal Grandmother Relation Name Status Comments Brother Father Mother Paternal Grandmother Social History Tobacco Use [...] 03/25/2025 9:40 AM EDT Plan of Treatment Health Maintenance Due Date Last Done Comments Medicare Annual Wellness (AWV) 1950 Depression Screening 1960 Zoster Vaccines (1 of 2) 01/26/1998 Fall Risk Screening 01/26/2013 Pneumococcal Vaccine: 50+ Years (2 of 2 - PCV) 05/05/2021 05/05/2020 COVID-19 Vaccine ( season) 2024 05/16/2022, 09/15/2021, 01/22/2021, Additional history exists Adult Tetanus 03/12/2034 03/12/2024 Influenza Vaccine Completed 08/15/2024, , 09/15/2021 HIB Vaccines Aged Out No longer [...] on patient's age to complete this topic Procedures Procedure Name Priority Date/Time Associated Diagnosis [...] EDT) Blood Venous blood specimen / Unknown [facility] Provider LAB BLOOD ORDERABLES Consuelo l Result from Last 3 Months Insurance [facility] MEDICARE ADVANTAGE Care Teams Therapy Technician Relationship Specialty Start Date End Date Pool Peace MD [address] [place] [address] PCP - General 12/13/22
--- OUTSIDE RECORDS SUMMARY | 2025-04-11 13:58 | XMS_ITS | Encounter Summary ---
Author Organization [facility] Address [address] [place] [address] Care Team Providers Care Glycerine Plant Operator Name Role Phone Pool Peace MD Unavailable Pool Peace MD Primary Care Provider [phone] Encounter Details Date Type Department Care Team (Late st Contact Info) Description 02/13/2025 Results Follow-Up [facility] [address] [place] [phone] Pool Peace MD [address] [place] [address] Social History Tobacco Use Types Packs/Day Years [...] often do you attend chur ch or mosque services? More than 4 times per year 02/08/2024 Do you belong to any clubs o r organizations such as evangelical groups, unions, fraternal or athletic groups, or [...] Recorded Patient Health Questionnaire-2 Score 0 08/15/2024 [facility] of Occupat ional Health - Occupational Stress [...] place to sleep or slept in a jail (including now)? No 02/08/2024 Sex and Gender [...] Visit [facility] [address] [place] [address] Pool Peace MD [address] [place] [address] documented as of this encounter Visit Diagnoses Not on filedocumented in this encounter Additional Health Concerns Assessment Noted Time PHQ-9 Depression Total Score: 1 08/15/20 11:00 AM EDT documented as of this encounter Care Teams Glycerine Plant Operator Relationship Specialty Start Date End Date Pool Peace MD [address] [place] [phone] PCP - [facility] 11/24/23 02/21/68 Pool Peace MD [address] [place] [address] PCP - General Family Medicine 08/15/24 documented as of this encounter
--- OUTSIDE RECORDS SUMMARY | 2025-04-11 13:58 | XMS_ITS | Encounter Summary ---
Author Organization [facility] Address [address] [place] [address] Care Team Providers Care Entrepreneurship Program Director Name Role Phone Pool Peace MD Primary Care Provider [phone] Pool Peace MD Unavailable Pool Peace MD Primary Care Provider [phone] Encounter Details Date Type Department Care Team (Late st Contact Info) Description 01/11/2024 Orders Only [facility] [address] [place] [address] Dev Iniguez MD [address] [place] [address] Social History Tobacco Use Types [...] Office Visit [facility] [address] [place] [address] Pool Peace MD [address] [place] [address] documented as of this encounter Procedures Procedure [...] on filedocumented in this encounter Care Teams Entrepreneurship Program Director Relationship Specialty Start Date End Date Pool Peace MD PCP - General Family Medicine 10/24/22 08/14/24 Pool Peace MD [address] [place] [address] PCP - [facility] 11/24/23 02/21/68 Pool Peace MD [address] [place] [address] PCP - General Family Medicine 08/15/24 documented as of this encounter
--- OUTSIDE RECORDS SUMMARY | 2025-04-11 13:58 | XMS_ITS | Encounter Summary ---
Author Organization [facility] Address [address] [place] [address] Care Team Providers Care Delivery Helper Name Role Phone Pool Peace MD Primary Care Provider [phone] Reason for Visit * Reason Comments Med Refill Encounter Details Date Type Department Care Team (Late st Contact Info) Description 03/23/[address] [facility] [address] [place] [address] Dev Iniguez MD [address] [facility] [place] [address] Borderline hyperlipidemia Social History Tobacco [...] encounter Miscellaneous Notes * Telephone Encounter - DYLAN Gann 03/23/2024 9:30 AM EDT Approving, but needs appt for additional refills. documented in this encounter Plan of Treatment Not on file documented as of this encounter Visit Diagnoses Diagnosis Borderline hyperlipidemia documented in this encounter Care Teams Delivery Helper Relationship Specialty Start Date End Date Pool Peace MD [address] [place] [address] PCP - General 12/13/22 documented as of this encounter
--- OUTSIDE RECORDS SUMMARY | 2025-04-11 13:58 | XMS_ITS | Clinical Summary ---
Author Organization [employer] Address [id number] [address] [place] [address] Care Team Providers Care Auto Headlight Mechanic Name Role Phone Pool Peace MD Primary Care Provider [phone] Allergies Active Allergy Reactions Criticality Noted Date [...] history exists Medical Devices Implanted Type Area Electrical Maintenance Supervisor Device Identifier Shelf Expiration Date Model / Serial / Lot Lens Iol Ultrasert 17.5d - [id number] - [id number] Implanted:Qty: 1 on 08/21/2019 by Rose Marie Concepcion MD at [facility] Lens Right: [employer] 08/22/2021 AU00T0 17.5 / [id number] / NA Lens Iol Ultrasert 17.5d - [id number] - [id number] Implanted:Qty: 1 on 09/06/2019 by Rose Marie Concepcion MD at [facility] Lens Left: [employer] 04/22/2021 AU00T0 17.5 / [id number] / NA Mesh 15x9cm Parietex Progrip Slf Fx Srg - [id number] Implanted:Qty: 1 on 07/25/2023 by Delta Piña MD at [facility] Mesh [employer] 09/22/2027 TEM15 09G / NA / [id number] Procedures Procedure Name Priority Date/Time Associated Diagnosis [...] Relevant to Health Maintenance Insurance [place] [address] Care Teams Auto Headlight Mechanic Relationship Specialty Start Date End Date Pool Peace MD PCP - General 09/16/17
--- OUTSIDE RECORDS SUMMARY | 2025-04-11 13:58 | XMS_ITS | Encounter Summary ---
Author Organization [facility] Address [address] [place] [address] Care Team Providers Care Senior Escrow Officer Name Role Phone Pool Peace MD Unavailable Pool Peace MD Primary Care Provider [phone] Encounter Details Date Type Department Care Team (Late st Contact Info) Description 10/29/2024 Orders Only [facility] [address] [place] [address] Pool Peace MD [address] [place] [address] Social History Tobacco Use Types Packs/Day Years [...] How often do you attend chur or caodaism services? More than 4 times per year 02/08/2024 Do you belong to any clubs o r organizations such as faith groups, unions, fraternal or athletic groups, or [...] Recorded Patient Health Questionnaire-2 Score 0 08/15/2024 [facility] [place] of Occupat ional Health - Occupational Stress [...] to sleep or slept in a senior care (including now)? No 02/08/2024 Sex and Gender [...] Visit [facility] [address] [place] [address] Pool Peace MD [address] [place] [phone] documented as of this encounter Procedures Procedure Name Priority Date/Time Associated Diagnosis Comments ECG 12-LEAD Routine 10/29/2024 9:31 AM EST XR ABDOMEN 1 VIEW Routine 10/27/2024 11:11 AM EST documented in this encounter Results * ECG 12 lead (10/29/2024 9:31 AM EST) us Pool Peace MD ECG ORDERABLES Final Result * XR abdomen 1 view (10/27/2024 11:11 AM EST) Anatomical Region Laterality Modality Abdomen Radiographic Lori ging us Marco Crews MD IMG XR PROCEDURES Final Result documented in this encounter Visit Diagnoses Not on filedocumented in this encounter Additional Health Concerns Assessment Noted Time PHQ-9 Depression Total Score: 1 08/15/20 24 11:00 AM EDT documented as of this encounter Care Teams Senior Escrow Officer Relationship Specialty Start Date End Date Pool Peace MD [address] [place] [phone] PCP - [facility] 11/24/23 02/21/68 Pool Peace MD [address] [place] [phone] PCP - General Family Medicine 08/15/24 documented as of this encounter
--- OUTSIDE RECORDS SUMMARY | 2025-04-11 13:58 | XMS_ITS | Encounter Summary ---
Author Organization [facility] Address [address] [place] [address] Care Team Providers Care Workers' Compensation Hearings Officer Name Role Phone Pool Peace MD Unavailable Pool Peace MD Primary Care Provider [phone] Encounter Details Date Type Department Care Team [...] How often do you attend chur or protestant services? More than 4 times per year 02/08/2024 Do you belong to any clubs o r organizations such as tenriism groups, unions, fraternal or athletic groups, or [...] Recorded Patient Health Questionnaire-2 Score 0 08/15/2024 [facility] [place] of Occupat ional Health - Occupational Stress [...] place to sleep or slept in a fpc (including now)? No 02/08/2024 Sex and Gender [...] Visit [facility] [address] [place] [phone] Pool Peace MD [address] [place] [address] documented as of this encounter Procedures Procedure Name Priority Date/Time Associated Diagnosis Comments CT LUNG SCREENING LOW DOSE 09/26/2024 7:33 AM EST documented in this encounter Results * CT LUNG SCREENING LOW DOSE (09/26/2024 7:33 AM EST) Anatomical Region Laterality Modality Other 09/26/2024 7:33 AM EST Narrative 09/26/2024 7:36 AM EST The [address] [address] [address] Scan Report Signed Patient: MIKE OSEI MR#: [id number] : 1950 Acct:[id number] Age/Sex: 74 / M ADM Date: 09/25/24 Loc: CT Attending Dr: Ranjit Pedraza D.O. Ordering Physician: Ranjit Pedraza D.O. Date of Service: 09/25/24 Procedure(s): CT lung screening low-dose Accession Number(s): [id number] cc: Pool Peace M.D. The [address] [address] Patient Name: MIKE OSEI MRN: [id number] date: 1950 Sex: M Assigned Patient Location: CT Current Patient Location: Accession/Order Number: [id number] Exam Date: 09/25/2024 09:21 Report Date: 09/26/2024 [...] M.D. Signed By: 09/26/2436 DD/ 2 TD/TT: Marine Insurance Claim Examiner: Procedure Note Radiology, Radiologist, - 09/26/2024 [place] [address] CT Scan Report Signed Patient: MIKE OSEI LMR#: [id number] : 8Acct:[id number] Age/Sex: 74 / MADM Date: 09/25/24 Loc: CT Attending Dr: Ranjit Pedraza D.O. Ordering Physician: Ranjit Pedraza D.O. Date of Service: 09/25/24 Procedure(s): CT lung screening low-dose Accession Number(s): [id number] cc: Pool Peace M.D. The [address] [address] Patient Name: MIKE OSEI MRN: [id number] date: 1950 Sex: M Assigned Patient Location: CT Current Patient Location: Accession/Order Number: [id number] Exam Date: 09/25/2024 09:21 Report Date: 09/26/2024 [...] Umm Sandhu M.D. Signed By:09/26/2436 DD/ TD/TT: [employer] Insurance Claim Examiner: us Generic External Data Provider [facility] Final Result documented in this encounter Visit Diagnoses Not on filedocumented in this encounter Additional Health Concerns Assessment Noted Time PHQ-9 Depression Total Score: 1 08/15/20 24 11:00 AM EDT documented as of this encounter Care Teams Workers' Compensation Hearings Officer Relationship Specialty Start Date End Date Pool Peace MD [address] [place] [phone] PCP - [facility] 11/24/23 02/21/68 Pool Peace MD [address] [place] [address] PCP - General Family Medicine 08/15/24 documented as of this encounter
--- OUTSIDE RECORDS SUMMARY | 2025-04-11 13:58 | XMS_ITS | Encounter Summary ---
Author Organization [facility] Address [address] [place] [address] Care Team Providers Care Drop Clipper Name Role Phone Pool Peace MD Primary Care Provider [phone] Pool Peace MD Unavailable Pool Peace MD Primary Care Provider [phone] Encounter Details Date Type Department Care Team (Late st Contact Info) Description 01/12/2024 Orders Only [facility] [address] [place] [address] Dev Iniguez MD [address] [place] [address] Social History Tobacco Use Types [...] Office Visit [facility] [address] [place] [address] Pool Peace MD [address] [place] [address] documented as of this encounter Procedures Procedure [...] on filedocumented in this encounter Care Teams Drop Clipper Relationship Specialty Start Date End Date Pool Peace MD PCP - General Family Medicine 10/24/22 08/14/24 Pool Peace MD [address] [place] [address] PCP - [facility] 11/24/23 02/21/68 Pool Peace MD [address] [place] [address] PCP - General Family Medicine 08/15/24 documented as of this encounter
== END 2025-04-11 13:55 | disposition home or self-care (01) ==
LOC: PM 13:54
PROVIDERS: PCP Family Medicine; Visit Provider Nurse Practitioner
DX: M46.1 Sacroiliitis, not elsewhere classified (principal); M48.062 Spinal stenosis, lumbar region with neurogenic claudication; M47.816 Spondylosis without myelopathy or radiculopathy, lumbar region; M79.18 Myalgia, other site
CPT/HCPCS: G0463

== ENCOUNTER 2025-04-22 07:26 | Day surgery (SDC) | payer MEDICARE, SELFPAY ==
--- OUTSIDE RECORDS SUMMARY | 2024-09-11 07:15 | XMS_ITS ---
Author Organization [facility] [place] Address [address] [place] [address] Care Team Providers Care Electronics Teacher Name Role Phone Pool Peace MD Primary Care Provider Ranjit Gee Unavailable [phone] REASON FOR VISIT LDCT Scheduled Encounters Encounter Location Date Provider Diagnosis Pulmonary [facility] [place] [address] [place] [address] 09/11/2024 Ranjitelisa Farrell Plan Of Treatment Next Appt Details Provider Name:Ranjitelisa Farrell, 09/11/2025 10:00:00 AM, [address] [place], [address], Progress Notes * Mike OSEI LDOB:1950 (74 yo M)Acc No.[id number]:09/11/2024 Patient: Mike LAUREN :1950 A ge:74 Y S ex:Male Address:[address] [place] [address], [id number] * true * Date: Generated for Antonia roque/Raquel/eTransmitting on: 0 04/22/2025 07:29 AM EDT
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
--- OUTSIDE RECORDS SUMMARY | 2024-09-26 04:06 | XMS_ITS ---
Author Organization [facility] in [place] Address [address] [place] [address] Care Team Providers Care Head Lineman Name Role Phone Pool Peace MD Primary Care Provider Chavez matute KaryRanjit Unavailable [phone] REASON FOR VISIT LDCT Result Encounters Encounter Location Date Provider Diagnosis Pulmonary Medicine [place] [address] [place] [address] 09/26/2024 Ranjitelisa Farrell Plan Of Treatment Next Appt Details Provider Name:Ranjitelisa Farrell, 09/11/2025 10:00:00 AM, [address] [place], [address], Progress Notes * Mike OSEI LDOB:1950 (74 yo M)Acc No.[id number]:09/26/2024 Patient: Mike LAUREN :1950 A ge:74 Y S ex:Male Address:[address] [place] [address], [address] * true * Date: Generated for Antonia roque/Raquel/eTransmitting on: 0 04/22/2025 07:29 AM EDT
--- OUTSIDE RECORDS SUMMARY | 2025-04-01 10:00 | XMS_ITS ---
Author Organization [facility] Address [address] [place] [address] Care Team Providers Care Barrel Endshaker Adjuster Name Role Phone Pool Peace Primary Care Provider Chas Boothe Unavailable [phone] REASON FOR VISIT RIGHT DISTAL FIB FRACTURE Encounters Encounter Location Date Provider Diagnosis [facility] Office [address] [place] [address] [address] [facility] [address] 04/01/2025 Chas Arenas Plan Of Treatment Next Appt Details Provider Name:Chas Correa s, 04/30/2025 11:30:00 AM, [address] [place] [address], [place], [address], Progress Notes * HUY MARTINEZ LDOB:1950 (75 yo M)Acc No.[id number]:04/01/2025 Patient: Demar MIRELESHUY Provider: Rachelle Arenas DO :1950 A ge:75 Y S ex:Male Date:04/01/2025 Address:[address] [place], [place] [address] Pcp:Pool Peace Subjective: * Chief Complaints: * 1 . RIGHT DISTAL FIB FRACTURE. * Medical History: Objective: * Vitals: Assessment: Plan: * Treatment: Forms: * Images: * Electronic signature of Florentin Arenas DO on 04/22/2025 at 07:30 AM EDT Sign off status: Pending * Provider: Rachelle Arenas DO Date: 0 04/01/2025 Generated for Antonia roque/Raquel/Bassam on: 0 04/22/2025 07:30 AM EDT
--- OUTSIDE RECORDS SUMMARY | 2025-04-22 07:29 | XMS_ITS | Encounter Summary ---
Author Organization [facility] Address [address] [place] [address] Care Team Providers Care Signal Maintainer Name Role Phone Pool Peace MD Primary Care Provider [phone] Pool Peace MD Unavailable Pool Peace MD Primary Care Provider [phone] Encounter Details Date Type Department Care Team [...] 08/27/2025 11:00 AM EST Office Visit [facility] [address] [place] [address] Pool Peace MD [address] [place] [address] documented as of this encounter Procedures Procedure Name Priority Date/Time Associated Diagnosis Comments XR CHEST 2V 11/14/2023 3:27 PM EST documented in this encounter Results * XR CHEST 2V (11/14/2023 3:27 PM EST) Anatomical Region Laterality Modality Other 11/14/2023 3:27 PM EST Narrative 11/14/2023 3:30 PM EST The [address] [address] XRay Report Signed Patient: MIKE MARTINEZ MR#: [id number] : 1950 Acct:[id number] Age/Sex: 73 / M ADM Date: 11/14/23 Loc: RAD Attending Dr: Leigha Pedraza D.O. Ordering Physician: Leigha Pedraza D.O. Date of Service: 11/14/23 Procedure(s): XR chest 2V Accession Number(s): [id number] cc: Pool Peace M.D.; Leigha Pedraza D.O. The [address] [address] Patient Name: MIKE MARTINEZ MRN: [facility]:[id number] date: 1950 Sex: M Assigned Patient Location: [facility] Current Patient Location: [facility] Accession/Order Number: [id number] Exam Date: 11/14/2023 15:05 Report Date: 11/14/2023 [...] change cardiac and mediastinal silhouettes or angelina. Bookkeeping Assistant technique today. Relatively mild peribronchial thickening at [...] Signed By: 11/14/23 1530 DD/ 1527 TD/TT: Hardening Machine Operator Helper: Procedure Note Radiology, Radiologist, - 11/14/2023 [place] [address] XRay Report Signed Patient: MIKE MARTINEZ LMR#: [id number] : 8Acct:[id number] Age/Sex: 73 / MADM Date: 11/14/23 Loc: RAD Attending Dr: Leigha Pedraza D.O. Ordering Physician: Leigha Pedraza D.O. Date of Service: 11/14/23 Procedure(s): XR chest 2V Accession Number(s): [id number] cc: Pool Peace M.D.; Leigha Pedraza D.O. The [place] [address] Patient Name: MIKE MARTINEZ MRN: [facility]:[id number] date: 1950 Sex: M Assigned Patient Location: [facility] Current Patient Location: [facility] Accession/Order Number: [id number] Exam Date: 11/14/2023 15:05 Report Date: 11/14/2023 [...] change cardiac and mediastinal silhouettes or angelina. Bookkeeping Assistant technique today. Relatively mild peribronchial thickening at [...] M.D. Signed By:11/14/23 1530 DD/ 1527 TD/TT: Hardening Machine Operator Helper: us Generic External Data Provider [facility] Final Result documented in this encounter Visit Diagnoses Not on filedocumented in this encounter Care Teams Signal Maintainer Relationship Specialty Start Date End Date Pool Peace MD PCP - General Family Medicine 10/24/22 08/14/24 Pool Peace MD [address] [place] [address] PCP - [facility] 11/24/23 02/21/68 Pool Peace MD [address] [place] [address] PCP - General Family Medicine 08/15/24 documented as of this encounter
--- OUTSIDE RECORDS SUMMARY | 2025-04-22 07:29 | XMS_ITS | Encounter Summary ---
Author Organization [facility] Address [address] [place] [address] Care Team Providers Care Yarding And Folding Machine Operator Name Role Phone Pool Peace MD Unavailable Pool Peace MD Primary Care Provider [phone] Encounter Details Date Type Department Care Team [...] How often do you attend chur or orthodox services? More than 4 times per year 02/08/2024 Do you belong to any clubs o r organizations such as yarsanism groups, unions, fraternal or athletic groups, or [...] Recorded Patient Health Questionnaire-2 Score 0 08/15/2024 [facility] [place] of Occupat ional Health - Occupational Stress [...] Visit [facility] [address] [place] [address] Pool Peace MD [address] [place] [address] documented as of this encounter Procedures Procedure Name Priority Date/Time Associated Diagnosis Comments CT LUNG SCREENING LOW DOSE 09/26/2024 7:33 AM EST documented in this encounter Results * CT LUNG SCREENING LOW DOSE (09/26/2024 7:33 AM EST) Anatomical Region Laterality Modality Other 09/26/2024 7:33 AM EST Narrative 09/26/2024 7:36 AM EST The [address] [address] [address] Scan Report Signed Patient: MIKE OSEI MR#: [id number] : 1950 Acct:[id number] Age/Sex: 74 / M ADM Date: 09/25/24 Loc: CT Attending Dr: Ranjit Pedraza D.O. Ordering Physician: Ranjit Pedraza D.O. Date of Service: 09/25/24 Procedure(s): CT lung screening low-dose Accession Number(s): [id number] cc: Pool Peace M.D. The [address] [address] Patient Name: MIKE OSEI MRN: [facility]:[id number] date: 1950 Sex: M Assigned Patient Location: CT Current Patient Location: Accession/Order Number: [id number] Exam Date: 09/25/2024 09:21 Report Date: 09/26/2024 [...] M.D. Signed By: 09/26/2436 DD/ 2 TD/TT: Quality Assurance Monitor Final: Procedure Note Radiology, Radiologist, - 09/26/2024 [place] [address] CT Scan Report Signed Patient: MIKE OSEI LMR#: [id number] : 8Acct:[id number] Age/Sex: 74 / MADM Date: 09/25/24 Loc: CT Attending Dr: Ranjit Pedraza D.O. Ordering Physician: Ranjit Pedraza D.O. Date of Service: 09/25/24 Procedure(s): CT lung screening low-dose Accession Number(s): [id number] cc: Pool Peaec M.D. The [address] [address] Patient Name: MIKE OSEI MRN: [facility]:[id number] date: 1950 Sex: M Assigned Patient Location: CT Current Patient Location: Accession/Order Number: [id number] Exam Date: 09/25/2024 09:21 Report Date: 09/26/2024 [...] Umm Sandhu M.D. Signed By:09/26/2436 DD/ TD/TT: Quality Assurance Monitor Final: us Generic External Data Provider [facility] Final Result documented in this encounter Visit Diagnoses Not on filedocumented in this encounter Additional Health Concerns Assessment Noted Time PHQ-9 Depression Total Score: 1 08/15/20 24 11:00 AM EDT documented as of this encounter Care Teams Yarding And Folding Machine Operator Relationship Specialty Start Date End Date Pool Peace MD [address] [place] [address] PCP - [facility] 11/24/23 02/21/68 Pool Peace MD [address] [place] [address] PCP - General Family Medicine 08/15/24 documented as of this encounter
--- OUTSIDE RECORDS SUMMARY | 2025-04-22 07:29 | XMS_ITS | Encounter Summary ---
Author Organization [facility] Address [address] [place] [address] Care Team Providers Care Fence Gate Assembler Name Role Phone Pool Peace MD Unavailable Pool Peace MD Primary Care Provider [phone] Encounter Details Date Type Department Care Team (Late st Contact Info) Description 02/13/2025 Results Follow-Up [facility] [address] [place] [address] Pool Peace MD [address] [place] [address] Social History Tobacco Use Types Packs/Day Years [...] often do you attend chur ch or rastafari services? More than 4 times per year 02/08/2024 Do you belong to any clubs o r organizations such as temple groups, unions, fraternal or athletic groups, or [...] Recorded Patient Health Questionnaire-2 Score 0 08/15/2024 [facility] [place] of Occupat ional Health - Occupational Stress [...] Visit [facility] [address] [place] [address] Pool Peace MD [address] [place] [address] documented as of this encounter Visit Diagnoses Not on filedocumented in this encounter Additional Health Concerns Assessment Noted Time PHQ-9 Depression Total Score: 1 08/15/20 11:00 AM EDT documented as of this encounter Care Teams Fence Gate Assembler Relationship Specialty Start Date End Date Pool Peace MD [address] [place] [address] PCP - [facility] 11/24/23 02/21/68 Pool Peace MD [address] [place] [address] PCP - General Family Medicine 08/15/24 documented as of this encounter
--- OUTSIDE RECORDS SUMMARY | 2025-04-22 07:29 | XMS_ITS | Encounter Summary ---
Author Organization [facility] Address [address] [place] [address] Care Team Providers Care Cloth Examiner Machine Name Role Phone Pool Peace MD Primary Care Provider [phone] Pool Peace MD Unavailable Pool Peace MD Primary Care Provider [phone] Encounter Details Date Type Department Care Team (Late st Contact Info) Description 01/11/[address] [facility] [address] [place] [address] Dev Iniguez MD [address] [place] [address] Social History Tobacco Use Types [...] Office Visit [facility] [address] [place] [address] Pool Peace MD [address] [place] [address] documented as of this encounter Procedures Procedure [...] on filedocumented in this encounter Care Teams Cloth Examiner Machine Relationship Specialty Start Date End Date Pool Peace MD PCP - General Family Medicine 10/24/22 08/14/24 Pool Peace MD [address] [place] [address] PCP - [facility] 11/24/23 02/21/68 Pool Peace MD [address] [place] [address] PCP - General Family Medicine 08/15/24 documented as of this encounter
--- OUTSIDE RECORDS SUMMARY | 2025-04-22 07:29 | XMS_ITS | Encounter Summary ---
Author Organization [facility] Address [address] [place] [address] Care Team Providers Care Commercial Interior Designer Name Role Phone Pool Peace MD Unavailable Pool Peace MD Primary Care Provider [phone] Encounter Details Date Type Department Care Team (Late st Contact Info) Description 10/29/2024 Orders Only [facility] [address] [place] [address] Pool Peace MD [address] [place] [address] Social History Tobacco Use Types Packs/Day Years [...] How often do you attend chur or orthodoxy services? More than 4 times per year 02/08/2024 Do you belong to any clubs o r organizations such as episcopalian groups, unions, fraternal or athletic groups, or [...] Recorded Patient Health Questionnaire-2 Score 0 08/15/2024 [facility] [place] of Occupat ional Health - Occupational Stress [...] place to sleep or slept in a longterm (including now)? No 02/08/2024 Sex and Gender [...] Visit [facility] [address] [place] [address] Pool Peace MD [address] [place] [address] documented as of this encounter Procedures Procedure [...] documented as of this encounter Care Teams Commercial Interior Designer Relationship Specialty Start Date End Date Pool Peace MD [address] [place] [address] PCP - [facility] 11/24/23 02/21/68 Pool Peace MD [address] [place] [address] PCP - General Family Medicine 08/15/24 documented as of this encounter
--- OUTSIDE RECORDS SUMMARY | 2025-04-22 07:29 | XMS_ITS | Encounter Summary ---
Author Organization [facility] Address [address] [place] [address] Care Team Providers Care Nylon Operator Name Role Phone Pool Peace MD Primary Care Provider [phone] Pool Peace MD Unavailable Pool Peace MD Primary Care Provider [phone] Encounter Details Date Type Department Care Team (Late st Contact Info) Description 01/12/2024 Orders Only [facility] [address] [place] [address] Dev Iniguez MD [address] [place] [address] Social History Tobacco Use Types [...] Office Visit [facility] [address] [place] [address] Pool Peace MD [address] [place] [address] documented as of this encounter Procedures Procedure [...] on filedocumented in this encounter Care Teams Nylon Operator Relationship Specialty Start Date End Date Pool Peace MD PCP - General Family Medicine 10/24/22 08/14/24 Pool Peace MD [address] [place] [address] PCP - [facility] 11/24/23 02/21/68 Pool Peace MD [address] [place] [address] PCP - General Family Medicine 08/15/24 documented as of this encounter
--- OUTSIDE RECORDS SUMMARY | 2025-04-22 07:29 | XMS_ITS | Clinical Summary ---
Author Organization [facility] Address [address] [place] [address] Care Team Providers Care Director Script Name Role Phone Unavailable Primary Care Provider [...]
--- OUTSIDE RECORDS SUMMARY | 2025-04-22 07:29 | XMS_ITS | Clinical Summary ---
Author Organization [facility] Address [address] [place] [address] Care Team Providers Care Actuarial Assistant Name Role Phone Pool Peace MD Unavailable Pool Peace MD Primary Care Provider [phone] Allergies Active Allergy Reactions Criticality Noted Date Comments Morphine Unknown,Nausea And Vomiting,Other Penicillins Anaphylaxis,Angio[place] ma,Hives,Itching,O ther,Rash,Unknown High 10/24/1988 Medications losartan (Cozaar) 100 MG tabletIndications :Essential (primary) hypertension,Ld gn essential hypertension Take 1 tablet (100 mg) by mouth Daily 100 tablet 3 07/24/2024 07/24/20 25 Active Trelegy Ellipta 200-62.5-25 MCG/ACT aerosol powder 01/05/2024 Active atorvastatin (Lipitor) 40 MG tablet Take 80 mg by mouth Daily Active clopidogrel (Plavix) 75 MG tablet Take 75 mg by mouth Daily 11/09/2023 Active metoprolol succinate XL (Toprol-XL) 50 MG 24 hr tablet Take 50 mg by mouth in the morning. Active hydroCHLOROthiazi de (HYDRODiuril) 25 MG tabletIndications :Essential (primary) hypertension,Ld gn essential hypertension TAKE 1 TABLET BY MOUTH EVERY DAY 90 tablet 3 03/19/2025 Active Active Problems Problem Noted Date Diagnosed [...] BPH without urinary obstruction 02/14/2024 CAD in [place] artery 02/14/2024 Cholelithiasis without cholecystitis 02/14/2024 Chronic [...] Department Care Team Description 03/16/2025 Refill [facility] [address] [place] [address] Pool Peace MD Essential (primary) hypertension ; Benign essential hypertension 03/08/2025 [facility] Result Encounter [facility] External Department Unsolicited Provider, Generic External Data 02/21/2025 [facility] Result Encounter [facility]OMS External Department Unsolicited Provider, Generic External Data 02/18/2025 [facility] Result Encounter [facility]OMS External Department Unsolicited Provider, Generic External Data 02/13/2025 9:30 AM EDT Office Visit [facility] [address] [place] [address] Pool Peace MD Essential hypertension, benign (Primary Dx); Chronic obstructive pulmonary disease, unspecified COPD type (HCC); Fatigue, unspecified type; Degeneration of intervertebral disc of lumbar region with discogenic back pain; PAD (peripheral artery disease); Stage 3b chronic kidney disease (CMS-HCC); Encounter for long-term (current) use of medications 02/13/2025 Results Follow-Up [facility] [address] [place] [address] Pool Peace MD 02/13/2025 [facility] Result Encounter [facility]OM[facility] External Department Unsolicited Pool Peace MD 02/13/2025 Bamboo flowsheet [facility] [address] [place] [address] Pool Peace MD 02/06/2025 Travel from Last 3 Months Immunizations Immunization Administration [...] often do you attend chur ch or islam services? More than 4 times per year 02/08/2024 Do you belong to any clubs o r organizations such as christianity groups, unions, fraternal or athletic groups, or [...] Recorded Patient Health Questionnaire-2 Score 0 08/15/2024 [facility] [place] of Occupat ional Health - Occupational Stress [...] Office Visit [facility] [address] [place] [address] Pool Peace MD [address] [place] [address] Health Maintenance Due Date Last Done Comments [...] PANEL Routine 02/13/2025 11:0 5 AM EDT from Last 3 Months Results * MR LUMBAR SPINE WO CON (03/08/2025 3:00 PM EDT) Anatomical Region Laterality Modality Other 03/08/2025 3:00 PM EDT Narrative 03/08/2025 3:02 [place] [address] Magnetic Resonance Report Signed Patient: MIKE OSEI MR#: [id number] : 1950 Acct:[id number] Age/Sex: 75 / M ADM Date: 03/08/25 Loc: MRI Attending Dr: Maricarmen Shaw NP Ordering Physician: Maricarmen Shaw NP Date of Service: 03/08/25 Procedure(s): MR lumbar spine wo con Accession Number(s): [id number] cc: Maricarmen Shaw NP; Pool Peace M.D. The [place] [address] Patient Name: MIKE OSEI MRN: [id number] date: 1950 Sex: M Assigned Patient Location: MRI Current Patient Location: MRI Accession/Order Number: [id number] Exam Date: 03/08/2025 14:55 Report Date: 03/08/2025 [...] Lentz M.D. 03/08/2025 3:00 PM Dictation Location: [place] [address] Electronically authenticated by: [id number] Y Date: 03/08/2025 15:00 Dictated By: Sanket Lentz M.D. Signed By: 03/08/25 1502 DD/ 1500 TD/TT: Individualized Education Plan Aide: Procedure Note Radiology, Radiologist, MD - 03/08/2025 [place] [address] Magnetic Resonance Report Signed Patient: MIKE OSEI LMR#: [id number] : 1950cct:[id number] Age/Sex: 75 / MADM Date: 03/08/25 Loc: MRI Attending Dr: Maricarmen Shaw NP Ordering Physician: Maricarmen Shaw NP Date of Service: 03/08/25 Procedure(s): MR lumbar spine wo con Accession Number(s): [id number] cc: Maricarmen Shaw NP; Pool Peace M.D. The [place] [address] Patient Name: MIKE OSEI MRN: [id number] date: 1950 Sex: M Assigned Patient Location: MRI Current Patient Location: MRI Accession/Order Number: [id number] Exam Date: 03/08/2025 14:55 Report Date: 03/08/2025 [...] Lentz M.D. 03/08/2025 3:00 PM Dictation Location: [employer] Electronically authenticated by: [id number] Y Date: 5:00 Dictated By: Sanket Lentz M.D. Signed By:03/08/25 1502 DD/ 1500 TD/TT: Individualized Education Plan Aide: Generic External Data Provider [facility] Final Result * XR LUMBAR SPINE 6V W BENDING (02/21/2025 11:59 AM EDT) Anatomical Region Laterality Modality Other 02/21/2025 11:5 9 AM EDT Narrative 02/21/2025 12:01 PM EDT [place] [id number] XRay Report Signed Patient: MIKE OSEI MR#: [id number] : 1950 Acct:[id number] Age/Sex: 75 / M ADM Date: 02/21/25 Loc: RAD Attending Dr: Maricarmen Shaw SOFTWARE ENGINEERING ANALYST Ordering Physician: Maricarmen Shaw NP Date of Service: 02/21/25 Procedure(s): XR lumbar spine 6V w bending Accession Number(s): [id number] cc: Maricarmen Shaw NP; Pool Peace M.D. [address] [address] Patient Name: MIKE OSEI MRN: [id number] date: 1950 Sex: M Assigned Patient Location: RAD Current Patient Location: RAD Accession/Order Number: [id number] Exam Date: 02/21/2025 11:57 Report Date: 02/21/2025 [...] Jr., D.O. 02/21/2025 11:59 AM Dictation Location: [place] [address] Electronically authenticated by: [id number] Y Date: 02/21/2025 11:59 Dictated By: Ezra Lacy M.D. Signed By: 02/21/25 1201 DD/ 1159 TD/TT: Individualized Education Plan Aide: Procedure Note Radiology, Radiologist, MD - 02/21/2025 [place] [address] XRay Report Signed Patient: MIKE OSEI LMR#: [id number] : 1950cct:[id number] Age/Sex: 75 / MADM Date: 02/21/25 Loc: RAD Attending Dr: Maricarmen Shaw NP Ordering Physician: Maricarmen Shaw NP Date of Service: 02/21/25 Procedure(s): XR lumbar spine 6V w bending Accession Number(s): [id number] cc: Maricarmen Shaw NP; Pool Pecae M.D. The [place] [address] Patient Name: MIKE OSEI MRN: [facility]:[id number] date: 1950 Sex: M Assigned Patient Location: RAD Current Patient Location: RAD Accession/Order Number: [id number] Exam Date: 02/21/2025 11:57 Report Date: 02/21/2025 [...] Jr., D.O. 02/21/2025 11:59 AM Dictation Location: [place] [address] Electronically authenticated by: [id number] Y Date: 1:59 Dictated By: Ezra Lacy M.D. Signed By:02/21/25 1201 DD/ 1159 TD/TT: Individualized Education Plan Aide: Generic External Data Provider [facility] Final Result * XR ANKLE RT MIN 3V (02/18/2025 4:01 PM EDT) Anatomical Region Laterality Modality Other 02/18/2025 4:01 PM EDT Narrative 02/18/2025 4:04 [place] [address] XRay Report Signed Patient: MIKE OSEI MR#: [id number] : 1950 Acct:[id number] Age/Sex: 75 / M ADM Date: 02/18/25 Loc: EC Attending Dr: Chas Arenas M.D. Ordering Physician: Chas Arenas M.D. Date of Service: 02/18/25 Procedure(s): XR ankle RT min 3V Accession Number(s): [id number] cc: Chas Arenas M.D.; Pool Peace M.D. The [place] [address] Patient Name: MIKE OSEI MRN: [facility]:[id number] date: 1950 Sex: M Assigned Patient Location: Current Patient Location: Accession/Order Number: [id number] Exam Date: 02/18/2025 16:00 Report Date: 02/18/2025 [...] FRACTURE. Impression dictated by: Ezra Lacy Jr., D.OOtoniel 02/18/2025 4:01 PM Dictation Location: [place] [address] Electronically authenticated by: [id number] Y Date: 02/18/2025 16:01 Dictated By: Ezra Lacy M.D. Signed By: 02/18/25 1604 DD/ 1601 TD/TT: Individualized Education Plan Aide: Procedure Note Radiology, Radiologist, MD - 02/18/2025 [place] [address] XRay Report Signed Patient: MIKE OSEI LMR#: [id number] : 1950cct:[id number] Age/Sex: 75 / MADM Date: 02/18/25 Loc: Attending Dr: Chas Arenas M.D. Ordering Physician: Chas Arenas M.D. Date of Service: 02/18/25 Procedure(s): XR ankle RT min 3V Accession Number(s): [id number] cc: Chas Arenas M.D.; Pool Peace M.D. The [place] [id number] Patient Name: MIKE OSEI MRN: [id number] date: 1950 Sex: M Assigned Patient Location: Current Patient Location: Accession/Order Number: [id number] Exam Date: 02/18/2025 16:00 Report Date: 02/18/2025 [...] Jr., D.O. 02/18/2025 4:01 PM Dictation Location: [place] [address] Electronically authenticated by: [id number] Y Date: 6:01 Dictated By: Ezra Lacy M.D. Signed By:02/18/25 1604 DD/ 160 TD/TT: Individualized Education Plan Aide: us Generic External Data Provider [facility] Final Result * [facility] LIVER PANEL (02/13/2025 11:05 AM EDT) [...] us Pool Peace MD [facility] * (ABNORMAL) ALL CBC WITH AUTO DIFF (02/13/2025 11:05 AM EDT) [facility] TB WBC 7.8 4.0 - 11.0 10 [...] EDT Pool Peace MD [facility] Final Result [facility] * (ABNORMAL) ALL BASIC METABOLIC PANEL (02/13/2025 [...] 0.70 - 1.30 mg/dL [facility] EGFR-AF IVORIAN 57(L) >=60 mL/min/1.7 3m 2 [facility] EGFR-NON AF IVORIAN 47(L) >=60 mL/min/1.7 3m 2 [facility] BUN CREATININE RATIO 13.7 [facility] CALCIUM 10.1 8.5 - 10.1 mg/dL [facility] 02/13/2025 11:0 5 AM EDT 02/13/2025 11:07 AM EDT Narrative [facility] - 02/13/2025 11:27 AM EDT Pool Peace MD [facility] Final Result [facility] from Last 3 Months Insurance [employer] MEDICARE Care Teams Actuarial Assistant Relationship Specialty Start Date End Date Pool Peace MD [address] [place] [address] PCP - [facility] 11/24/23 02/21/68 Pool Peace MD [address] [place] [address] PCP - General Family Medicine 08/15/24
--- OUTSIDE RECORDS SUMMARY | 2025-04-22 07:29 | XMS_ITS | Encounter Summary ---
Author Organization [facility] Address [address] [place] [address] Care Team Providers Care Medical Research Assistant Name Role Phone Pool Peace MD Primary Care Provider [phone] Pool Peace MD Unavailable Pool Peace MD Primary Care Provider [phone] Encounter Details Date Type Department Care Team [...] Office Visit [facility] [address] [place] [address] Pool Peace MD [address] [place] [address] documented as of this encounter Procedures Procedure Name Priority Date/Time Associated Diagnosis Comments VASC US ANKLE BRACHIAL INDEX (GEETHA) WITH EXERCISE 01/10/2024 2:06 PM EDT documented in this encounter Results * Vascular US ankle brachial index (GEETHA) with exercise (01/10/2024 2:06 PM EDT) Anatomical Region Laterality Modality Lower Extremities Ultrasound 01/10/2024 2:06 PM EDT Narrative 01/10/2024 11:02 [place] [address] Cardiology Report Signed Patient: MIKE MARTINEZ MR#: [id number] : 1950 Acct:[id number] Age/Sex: 73 / M ADM Date: 01/10/24 Loc: CARD Attending Dr: ARON ANDERSON Ordering Physician: ARON ANDERSON Date of Service: 01/10/24 Procedure(s): CA pre/post exercise vasc VARINDER Accession Number(s): [id number] cc: ARON ANDERSON ; Pool Peace M.D. The [facility] Test Date: 2024-01-10 Pat Name: MIKE MARTINEZ Department: Room: - Gender: Male Lining Baster: : 1950 Requested By: ARON ANDERSON M.D. Order Number: [id number] Reading MD: JEB ROJAS Interpretive Statements Biphasic [...] D.O. Signed By: 01/10/24230101/10/242301 DD/ 1406 TD/TT: Photogrammetric Tech: Procedure Note Radiology, Radiologist, - 01/10/2024 The [place] [id number] Cardiology Report Signed Patient: MIKE MARTINEZ LMR#: [id number] : 8Acct:[id number] Age/Sex: 73 / MADM Date: 01/10/24 Loc: CARD Attending Dr: ARON ANDERSON Ordering Physician: ARON ANDERSON Date of Service: 01/10/24 Procedure(s): CA pre/post exercise vasc VARINDER Accession Number(s): [id number] cc: ARON ANDERSON ; Pool Peace M.D. The [facility] Test Date: 2024-01-10 Pat Name: MIKE MARTINEZ Department: Room: - Gender: Male Lining Baster: : 1950 Requested By: ARON ANDERSON M.D. Order Number: [id number] Reading MD: JEB ROJAS Interpretive Statements Biphasic [...] D.O. Signed By:01/10/24230101/10/24 2302 DD/ 1406 TD/TT: Photogrammetric Tech: us Generic External Data Provider IMG US PROCEDURES Final Result documented in this encounter Visit Diagnoses Not on filedocumented in this encounter Care Teams Medical Research Assistant Relationship Specialty Start Date End Date Pool Peace MD PCP - General Family Medicine 10/24/22 08/14/24 Pool Peace MD [address] [place] [address] PCP - [facility] 11/24/23 02/21/68 Pool Peace MD [address] [place] [address] PCP - General Family Medicine 08/15/24 documented as of this encounter
--- OUTSIDE RECORDS SUMMARY | 2025-04-22 07:29 | XMS_ITS | Encounter Summary ---
Author Organization [facility] Address [address] [place] [address] Care Team Providers Care Avionics Supervisor Name Role Phone Pool Peace MD Primary Care Provider [phone] Pool Peace MD Unavailable Pool Peace MD Primary Care Provider [phone] Encounter Details Date Type Department Care Team [...] 08/27/2025 11:00 AM EST Office Visit [facility] [address] [place] [address] Pool Peace MD [address] [place] [address] documented as of this encounter Procedures Procedure Name Priority Date/Time Associated Diagnosis Comments CA ECHO DOPPLER COMPLETE 01/12/2024 2:01 PM EDT documented in this encounter Results * CA ECHO DOPPLER COMPLETE (01/12/2024 2:01 PM EDT) Anatomical Region Laterality Modality Other 01/12/2024 2:01 PM EDT Narrative 01/12/2024 2:02 [place] [address] Cardiology Report Signed Patient: MIKE MARTINEZ MR#: [id number] : 1950 Acct:[id number] Age/Sex: 73 / M ADM Date: 01/10/24 Loc: CARD Attending Dr: ARON ANDERSON Ordering Physician: ARON ANDERSON Date of Service: 01/10/24 Procedure(s): CA echo doppler complete Accession Number(s): [id number] cc: ARON ANDERSON ; Pool Peace M.D. Patient Name: MIKE MARTINEZ MR#: [id number] : 1950 Exam Date: 01/10/2024 Ordering Doctor: [...] Signed By: 01/12/24 1402 DD/ 1401 TD/TT: Gutter Hanger: Procedure Note Radiology, Radiologist, MD - 01/12/2024 [place] [address] Cardiology Report Signed Patient: MIKE MARTINEZ LMR#: [id number] : 1950cct:[id number] Age/Sex: 73 / MADM Date: 01/10/24 Loc: CARD Attending Dr: ARON ANDERSON Ordering Physician: ARON ANDERSON Date of Service: 01/10/24 Procedure(s): CA echo doppler complete Accession Number(s): [id number] cc: ARON ANDERSON ; Pool Peace M.D. Patient Name: MIKE MARTINEZ MR#: [id number] : 1950 Exam Date: 01/10/2024 Ordering Doctor: [...] Pressure: 77.98 ml, 77.98 ml Dictated by: Evleyne Miranda M.D. on 01/12/2024 at 13:57 Approved by: Evelyne Miranda M.D. on 01/12/2024 at 14:01 Dictated By: Evelyne Miranda M.D. Signed By:01/12/24 1402 DD/ 1401 TD/TT: Gutter Hanger: Generic External Data Provider [facility] Final Result documented in this encounter Visit Diagnoses Not on filedocumented in this encounter Care Teams Avionics Supervisor Relationship Specialty Start Date End Date Pool Peace MD PCP - General Family Medicine 10/24/22 08/14/24 Pool Peace MD [address] [place] [address] PCP - [facility] 11/24/23 02/21/68 Pool Peace MD [address] [place] [address] PCP - General Family Medicine 08/15/24 documented as of this encounter
--- OUTSIDE RECORDS SUMMARY | 2025-04-22 07:29 | XMS_ITS | Encounter Summary ---
Author Organization [facility] Address [address] [place] [address] Care Team Providers Care Helpdesk Analyst Name Role Phone Pool Peace MD Primary Care Provider [phone] Reason for Visit * Reason Comments Med Refill Encounter Details Date Type Department Care Team (Late st Contact Info) Description 03/23/2024 Refill [facility] [address] [place] [address] Dev Iniguez MD [address] [facility] [place] [address] Borderline hyperlipidemia Social History Tobacco [...] hyperlipidemia documented in this encounter Care Teams Helpdesk Analyst Relationship Specialty Start Date End Date Pool Peace MD [address] [place] [address] PCP - General 12/13/22 documented as of this encounter
--- OUTSIDE RECORDS SUMMARY | 2025-04-22 07:30 | XMS_ITS | Encounter Summary ---
Author Organization [facility] Address [address] [place] [address] Care Team Providers Care Section Laborer Name Role Phone Pool Peace MD Primary Care Provider [phone] Reason for Visit * Reason Comments Med Refill Encounter Details Date Type Department Care Team (Late st Contact Info) Description 09/18/2022 Refill [facility] [address] [place] [phone] Dev Iniguez MD [address] [facility] [address] [facility] [place] [address] Coronary atherosclerosis due to calcified coronary lesion [...] (CODE) documented in this encounter Care Teams Section Laborer Relationship Specialty Start Date End Date Pool Peace MD [address] [place] [address] PCP - General 12/13/22 documented as of this encounter
--- OUTSIDE RECORDS SUMMARY | 2025-04-22 07:30 | XMS_ITS | Clinical Summary ---
Author Organization [facility] Address [address] [place] [address] Care Team Providers Care Civil Draftsman Name Role Phone Pool Peace MD Primary Care Provider [phone] Allergies Active Allergy Reactions Criticality Noted Date [...] Description 03/25/2025 9:45 AM EDT Office Visit [address] [address] Dev Iniguez MD Pre-op evaluation (Primary Dx); Coronary artery disease involving hamilton coronary artery of hamilton heart without angina pectoris; Peripheral vascular disease; Primary hypertension; Mixed hyperlipidemia; Stage 3a chronic kidney disease (CMS/HCC) 03/22/2025 Orders Only [address] [address] ProviderOmari MD from Last 3 Months Family [...] EDT) Blood Venous blood specimen / Unknown [facility] Provider LAB BLOOD ORDERABLES Consuelo l Result from Last 3 Months Insurance [facility] MEDICARE ADVANTAGE Care Teams Civil Draftsman Relationship Specialty Start Date End Date Pool Peace MD [address] [place] [address] PCP - General 12/13/22
--- OUTSIDE RECORDS SUMMARY | 2025-04-22 07:30 | XMS_ITS | Patient Health Record ---
Author Organization [facility] Address [address] [place] [address] Care Team Providers Care Spinner Hydraulic Name Role Phone Pool Peace Primary Care Provider Chas Boothe Unavailable [phone] Salina Gunter Unavailable Reason For Referral No Information Problems Problem Type SNOMED Code ICD Code Onset Dates Problem Status W/U Status Risk Notes Problem 112005083 Closed fracture of distal end of right fibula with routine healing, unspecified fracture morphology, subsequent encounter (S82.831D) Active confirmed Encounters Encounter Location Date Provider Diagnosis [facility] [address] [place] [phone] 12/25/2024 Chas Arenas Closed fracture of distal end of right fibula, unspecified fracture morphology, initial encounter S82.831A [facility] [address] [place] [address] [place] [address] 12/31/2024 Salina Gunter Closed fracture of distal end of right fibula with routine healing, unspecified fracture morphology, subsequent encounter S82.831D [facility] [address] [place] [address] [place] [address] 01/14/2025 Chas Arenas Closed fracture of distal end of right fibula with routine healing, unspecified fracture morphology, subsequent encounter S82.831D [facility] [address] [place] [address] [place] [address] 02/18/2025 Chas Arenas Closed fracture of distal [...] Order Date SCC- ANKLE 3 VIEW RIGHT 09309 01/14/2025 SCC- ANKLE 3 VIEW RIGHT 55267 02/18/2025 Ankle, right 3v - 10146 12/25/2024 Ankle, right 3v - 27896 12/31/2024 Stress view manual stress by physician 7 7071 12/25/2024 Next Appt Details Provider Name:Chas cobb, 04/30/2025 11:30:00 AM, [address] [facility], [place], [address], Insurance Providers Payer Name Payer Address Payer Phone Subscriber Number Group Number Insured Name Patient Relationship to Insured Coverage Start Date Coverage End Date MEDICARE U[employer] A[employer] [address] [address] [place] [phone] [id number] MIKE MARTINEZ Self - patient is the insured
--- OUTSIDE RECORDS SUMMARY | 2025-04-22 07:30 | XMS_ITS | Encounter Summary ---
Author Organization [facility] Address [address] [place] [address] Care Team Providers Care Ship'S Master Name Role Phone Pool Peace MD Primary Care Provider [phone] Reason for Visit * Reason Comments Med Refill Encounter Details Date Type Department Care Team (Late st Contact Info) Description 11/20/2022 Refill [facility] [address] [place] [phone] Dev Iniguez MD [address] [facility] [address] [facility] [place] [phone] Mixed hyperlipidemia Social History Tobacco Use Types [...] hyperlipidemia documented in this encounter Care Teams Ship'S Master Relationship Specialty Start Date End Date Pool Peace MD [address] [place] [address] PCP - General 12/13/22 documented as of this encounter
--- OUTSIDE RECORDS SUMMARY | 2025-04-22 07:30 | XMS_ITS | Encounter Summary ---
Author Organization [facility] Address [id number] [address] [place] [address] Care Team Providers Care Athletic Instructor Name Role Phone Pool Peace MD Primary Care Provider [phone] Reason for Visit * Reason Comments Med Refill Encounter Details Date Type Department Care Team (Late st Contact Info) Description 08/10/2017 Refill [facility] [address] [place] [address] [place] [phone] Nir Simpson, DO [address] [place] [address] Social History Tobacco Use Types Packs/Day Years [...] documented as of this encounter Care Teams Athletic Instructor Relationship Specialty Start Date End Date Pool Peace MD PCP - General 09/16/17 documented as of this encounter
--- OUTSIDE RECORDS SUMMARY | 2025-04-22 07:30 | XMS_ITS | Referral Summary ---
Author Organization [facility] Address [address] [place] [address] Care Team Providers Care Gold Prospector Name Role Phone Pool Peace MD Primary Care Provider [phone] Encounters Date Type Department Care Team Description 03/25/2025 9:45 AM EDT Office Visit [address] [address] Dev Iniguez MD Pre-op evaluation (Primary Dx); Coronary artery disease involving venetie coronary artery of venetie heart without angina pectoris; Peripheral vascular disease; Primary hypertension; Mixed hyperlipidemia; Stage 3a chronic kidney disease (CMS/HCC) 03/22/2025 Orders Only [address] [phone] ProviderOmari MD from Last 3 Months Allergies [...] Months Insurance [employer] MEDICARE ADVANTAGE Care Teams Gold Prospector Relationship Specialty Start Date End Date Pool Peace MD [address] [place] [address] PCP - General 12/13/22
--- OUTSIDE RECORDS SUMMARY | 2025-04-22 07:30 | XMS_ITS | Clinical Summary ---
Author Organization [facility] Address [id number] [address] [place] [address] Care Team Providers Care Stenographer Secretary Name Role Phone Pool Peace MD Primary Care Provider [phone] Allergies Active Allergy Reactions Criticality Noted Date [...] history exists Medical Devices Implanted Type Area Jewelry Bearing Maker Device Identifier Shelf Expiration Date Model / Serial / Lot Lens Iol Ultrasert 17.5d - [id number] - [id number] Implanted:Qty: 1 on 08/21/2019 by Rose Marie Concepcion MD at [facility] Lens Right: [employer] 08/22/2021 AU00T0 17.5 / [id number] / NA Lens Iol Ultrasert 17.5d - [id number] - [id number] Implanted:Qty: 1 on 09/06/2019 by Rose Marie Concepcion MD at [facility] Lens Left: [employer] 04/22/2021 AU00T0 17.5 / [id number] / NA Mesh 15x9cm Parietex Progrip Slf Fx Srg - [id number] Implanted:Qty: 1 on 07/25/2023 by Delta Piña MD at [facility] Mesh [employer] 09/22/2027 TEM15 09G / NA / [id number] Procedures Procedure Name Priority Date/Time Associated Diagnosis [...] Health Maintenance Insurance [employer] MEDICARE Care Teams Stenographer Secretary Relationship Specialty Start Date End Date Pool Peace MD PCP - General 09/16/17
--- OUTSIDE RECORDS SUMMARY | 2025-04-22 07:30 | XMS_ITS | Encounter Summary ---
Author Organization [facility] Address [address] [place] [address] Care Team Providers Care Ror Engineer Name Role Phone Pool Peace MD Primary Care Provider [phone] Reason for Visit * Reason Comments Med Refill Encounter Details Date Type Department Care Team (Late st Contact Info) Description 12/10/2022 Refill [facility] [address] [place] [address] Dev Iniguez MD [address] [facility] [place] [address] Borderline hyperlipidemia (Primary Dx) Social [...] Primary documented in this encounter Care Teams Ror Engineer Relationship Specialty Start Date End Date Pool Peace MD [address] [place] [address] PCP - General 12/13/22 documented as of this encounter
--- OUTSIDE RECORDS SUMMARY | 2025-04-22 07:30 | XMS_ITS | Encounter Summary ---
Author Organization [facility] Address [address] [place] [place] [address] Care Team Providers Care Computer Customer Support Specialist Name Role Phone Pool Peace MD Primary Care Provider [phone] Reason for Visit * Reason Comments Med Refill Encounter Details Date Type Department Care Team (Late st Contact Info) Description 03/11/2023 Refill [facility] [address] [place] [phone] Dev Iniguez MD [address] [facility] [address] [facility] [phone] Borderline hyperlipidemia Social History Tobacco Use Types [...] hyperlipidemia documented in this encounter Care Teams Computer Customer Support Specialist Relationship Specialty Start Date End Date Pool Peace MD [address] [place] [address] PCP - General 12/13/22 documented as of this encounter
--- OUTSIDE RECORDS SUMMARY | 2025-04-22 07:30 | XMS_ITS | Encounter Summary ---
Author Organization [facility] Address [address] [place] [address] Care Team Providers Care Balloon Artist Name Role Phone Pool Peace MD Primary Care Provider [phone] Reason for Visit * Reason Comments Med Refill Encounter Details Date Type Department Care Team (Late st Contact Info) Description 10/16/2022 Refill [facility] [address] [place] [phone] Dev Iniguez MD [address] [facility] [place] [phone] Coronary atherosclerosis due to calcified coronary lesion [...] (CODE) documented in this encounter Care Teams Balloon Artist Relationship Specialty Start Date End Date Pool Peace MD [address] [place] [address] PCP - General 12/13/22 documented as of this encounter
--- OUTSIDE RECORDS SUMMARY | 2025-04-22 07:30 | XMS_ITS | Clinical Summary ---
Author Organization [facility] Address [address] [place] [address] Care Team Providers Care Box Feeder Name Role Phone Pool Peace MD Primary [...] patient's age to complete this topic Insurance [facility] MEDICARE Care Teams Box Feeder Relationship Specialty Start Date End Date Pool Peace MD [address] [place] [address] PCP - General Family Medicine 03/12/24
--- OUTSIDE RECORDS SUMMARY | 2025-04-22 07:30 | XMS_ITS | Encounter Summary ---
Author Organization [facility] Address [address] [place] [address] Care Team Providers Care Machinist Supervisor Outside Name Role Phone Pool Peace MD Primary Care Provider [phone] Reason for Visit * Reason Comments Med Refill Encounter Details Date Type Department Care Team (Late st Contact Info) Description 10/29/2022 Refill [facility]iology [address] [place] [phone] Pricila Soot, CRYOLITE RECOVERY OPERATOR [address] [place] [phone] Essential (primary) hypertension Social History Tobacco Use [...] hypertension documented in this encounter Care Teams Machinist Supervisor Outside Relationship Specialty Start Date End Date Pool Peace MD [address] [place] [address] PCP - General 12/13/22 documented as of this encounter
--- OUTSIDE RECORDS SUMMARY | 2025-04-22 07:30 | XMS_ITS | Patient Health Record ---
Author Organization The [facility] in [place] Address [address] [place] [address] Care Team Providers Care Junior Administrative Assistant Name Role Phone Pool Peace MD Primary Care Provider UnavailLeigha Aly Unavailable [phone] Allergies Allergen (clinical drug ingredient) Drug/Non Drug Allergy documented on EMR Reaction Allergy Type Onset Date Status Penicillin rash Drug Allergy Active Results Component Value Reference Range Notes CT lung screening low-dose Reviewed date:09/26/2024 08:07:39 AM Interpretation: Performing Lab: Notes/Report: Source Facility: [place] [address] CT Scan Report Signed Patient: MIKE OSEI MR#: [id number] : 1950 Acct:[id number] Age/Sex: 74 / M ADM Date: 09/25/24 Loc: CT Attending Dr: Leigha Pedraza D.O. Ordering Physician: Leigha Pedraza D.O. Date of Service: 09/25/24 Procedure(s): CT lung screening low-dose Accession Number(s): [id number] cc: Pool Peace M.D. [place] [address] Patient Name: MIKE OSEI MRN: [id number] date: 1950 Sex: M Assigned Patient Location: CT Current Patient Location: Accession/Order Number: [id number] Exam Date: 09/25/2024 09:21 Report Date: 09/26/2024 [...] Signed By: 09/26/24 0736 DD/ 0733 TD/TT: Special Projects Manager: [place] [address] CT Scan Report Signed Patient: MIKE OSEI MR#: [id number] : 1950 Acct:[id number] Age/Sex: 74 / M ADM Date: 09/25/24 Loc: CT Attending Dr: Leigha Pedraza D.O. Ordering Physician: Leigha Pedraza D.O. Date of Service: 09/25/24 Procedure(s): CT edelmira g screening low-dose Accession Number(s): [id number] cc: Pool Peace M.D. [facility] [place] [id number] Patient Name: MIKE OSEI MRN: [id number] date: 1950 Sex: M Assigned Patient Location: CT Current Patient Location: Accession/Order Numb er: [id number] Exam Date: 09:21 Report Date: 09/26/2024 07:33 [...] Signed By: 09/26/24 0736 DD/ 0733 TD/TT: Special Projects Manager: CT Chest Low Dose for Screen ing* [...] Administration Date Status Comme nts Flu, Fluad (78891) 65 yrs an d older, single-dose syringe Unknown 08/15/2024 Administered Flu, Fluzone High-Dose (2022 -2023) (38793) 65 yrs+ Unknown 09/15/2021 Administered SARS-COV-2 (COVID [...] Problem Status W/U Status Risk Notes Problem 665783362 Unspecified asthma with (acute) exacerbation (J45.901) Active confirmed Problem 486778557 Obesity, unspecified (E66.9) Active confirmed Problem Long-term current use of 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 (656583156) 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) Active confirmed Problem Multiple pulmonary nodules (313432422) Multiple pulmonary nodules (R91.8) Active confirmed Problem Ex-tobacco user (finding) (934977970) History of tobacco abuse (Z87.891) Active confirmed 1ppd x 40 years, quit 2017 Problem Eosinophilic asthma (695457938) 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) Active confirmed Prior treatment: Trelegy 200 >>> Pulmicort/ Yupelri/Br ovana = Breztri > Trelegy 100, Stiloto, Duaklir Problem Body mass index 30.00 to 34.99 (78334802519725 7) Body mass index [BMI] 31.0-31.9, adult (Z68.31) Active confirmed Vital Signs Heart Rate 75 /min 09/12/2024 Temperature 96.4 degrees Fahrenheit 09/12/2024 Respiratory Rate 18 /min 09/12/2024 Blood pressure diastolic 76 mm Hg 09/12/2024 Oximetry 97 % 09/12/2024 Height 70 in 09/12/2024 Blood pressure systolic 124 mm Hg 09/12/2024 Weight 219.0 lbs 09/12/2024 BMI 31.42 kg/m2 09/12/2024 Encounters Encounter Location Date Provider Diagnosis [facility] [address] [place] [address] 09/12/2024 [facility] Eosinophilic asthma J82.83 ; Multiple pulmonary nodules R91.8 ; History of tobacco abuse Z87.891 ; alf (current) use of 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s Z79.51 and Obesity, unspecified E66.9 [facility] [address] [place] [address] 07/11/2024 [facility] [place] [address] [place] [address] 09/11/2024 [facility] [place] [address] [place] [address] 09/26/2024 [facility] Assessments Encounter Date Diagnosis (ICD Code) Assessment [...] unaffordable for him. I am not an commercial insurance underwriter, but I suggested he may want to [...] 2017 LDCT scheduled for 09/25/2024. 09/12/2024 exterminator (current) use of 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s (ICD-10 - Z79.51) Patient was counseled to rinse & gargle with water after inhaled corticosteroid use. 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 Weight loss indicated: Decrease calories, increase activity. 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
[2025-04-22 07:45] VITALS: BP 155/83; PULSE 68; TEMP 36.7; O2SAT 97
[2025-04-22 08:31] VITALS: BP 171/69; PULSE 74; O2SAT 96
[2025-04-22 08:33] VITALS: BP 167/68; PULSE 78; O2SAT 96
[2025-04-22] MEDS: METHYLPREDNISOLONE ACETATE 40 MG/ML VIAL INJ (08:34)
[2025-04-22] MEDS: IOHEXOL 240 MG/ML - 10 ML VIAL INJ (08:34)
[2025-04-22] MEDS: BUPIVACAINE HCL 0.25% PF 25 MG/10 ML VIAL 2 ML INJ (08:34)
[2025-04-22] MEDS: LIDOCAINE HCL 2% 400 MG/20 ML MDV INJ (08:34)
--- NOTE | 2025-04-22 08:35 | W.PM.PROCNOT ---
Date of procedure: 04/22/25 Pre-op diagnosis: Pain due to right sacroiliitis Post-op diagnosis: same as pre-op Procedure: Procedure: Right sacroiliac joint injection Medications: Bupivacaine 0.25% 3cc, depomedrol 40mg After informed consent was obtained, the patient was brought to the medical procedure unit and placed in the prone position, when a timeout was completed verifying correct patient, procedure, site, positioning, implant, and/or special equipment.? The skin overlying the area was prepped and draped in standard sterile fashion using alcohol.? A 25-gauge needle was inserted towards the right sacroiliac joint under direct fluoroscopic imaging.? Needle tip was advanced until the joint was encountered.? We instilled a total of 2 mL of solution.? Postoperatively needles were removed.? The patient tolerated the procedure well without complication.? The patient reported reduction in pain symptoms postoperatively. Anesthesia: Local Surgeon: Paty Durán Pathology: none sent Condition: stable Disposition: no change
== END 2025-04-22 08:40 | disposition home or self-care (01) ==
LOC: SURGOUT 07:27
PROVIDERS: PCP Family Medicine; Visit Provider Anesthesiology
DX: M46.1 Sacroiliitis, not elsewhere classified (principal)
CPT/HCPCS: 27096; J0665; J1010; Q9966

== ENCOUNTER 2025-05-02 09:34 | Outpatient (OUT) | payer MEDICARE, SELFPAY ==
--- OUTSIDE RECORDS SUMMARY | 2025-05-02 09:53 | XMS_ITS | CCD ---
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 Role Phone [place] Procedure Practitioner Unavailab le SELF, REFERRED Referring Unavailable SELF, REFERRED Primary Care Unavailable EBRAHEIM, ANDREWS Surgeon Unavailable EBRAHEIM, ANDREWS Attending Unavailable EBRAHEIM, ANDRWES Admitting Unavailable NC Procedure Practitioner Unavailab YA Galarza Surgeon Unavailable UNKNOWN, PROVIDER Attending Unavailable UNKNOWN, PROVIDER Admitting Unavailable JOSE, POOL Primary Care Unavailable JOSE, POOL Referring Unavailable UNKNOWN, PROVIDER Attending Unavailable UNKNOWN, PROVIDER Admitting Unavailable NADEREMariusz, POOL Referring Unavailable NADERER, POOL Primary Care Unavailable UNKNOWN, PROVIDER Attending Unavailable UNKNOWN, PROVIDER Admitting Unavailable SELF, REFERRED Referring Unavailable SELF, REFERRED Primary Care Unavailable NC Procedure Practitioner Unavailab le SELF, REFERRED Primary [...] DR POOL Valera Consulting Unavailable NADERER, DR POLO Valera Primary Care Unavailable NADERER, DR POOL [...] Attending Unavailable NADEREMariusz, POOL IVERSON Primary Care UnavailPool Mendoza MD Unavailable Pool Garcia MD Primary Care Provider POOL GARCIA Attending Unavailable JOSE, POOL Attending Unavailable HOLLY HUGHES Attending Unavailable ARON ANDERSON Attending Unavailable Allergies Allergy Classification Reported Allergen(s) Allergy Type Date of Onset Reaction(s) Facility (3 sources) Penicillins; Translations: [PENICILLINS] Drug allergy (disorder) 7 [facility] Repository (3 sources) Penicillin G Drug Allergy 4 hives and throat swelling [facility] (15 sources) Morphine; Translations: [MORPHINE] Drug Allergy [...] 1 capsule Orally Once a day Active Qbczpjrrexk-Xjtvbdasc-Mqgz nter (1 source) Start: 2024 Awrprhwpakm-Eqbxpdsdn-Zfs anter (Trelegy Ellipta) 200-62.5-25 mcg blister with [...] extended release oral tablet (16 sources) beta-Adrenergic Karina Start: 02-02-2025 take 1 tablet by mouth [...] stage 3] Onset: 03-03-2022 02-14-2024 Chronic Chronic kidney disease (2 sources) Chronic kidney disease; Translations: [Chronic kidney disease, stage 3a] Onset: 03-25-2025 Chronic obstructive pulmonary disease and bronchiectasis (18 sources) Chronic obstructive pulmonary disease, unspecified; Translations: [Chronic obstructive lung disease] Onset: 03-16-2022 02-14-2024 Chronic Coronary atherosclerosis and other heart disease (16 sources) Atherosclerotic heart disease of [place] coronary artery without angina pectoris; Translations: [Coronary [...] 02-14-2024 Chronic Other aftercare (1 source) Other mcfp (current) drug therapy; Translations: [OTH BREAD PANNER CURRENT DRUG THERAPY] Onset: 01-16-2023 Episodic Other aftercare (10 sources) Long-term current use of drug therapy; Translations: [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] Onset: 02-13-2025 08-15-2024 Episodic [...] Onset: 08-15-2024 08-15-2024 Other aftercare (1 source) [facility] (current) use of anticoagulants; Translations: [BREAD PANNER CURRNT USE ANTICOAGULANTS] Onset: 03-03-2022 Episodic Other [...] Value Interpretation Reference Range Facility Office Visiton 03-25-2025 Follow-up visit [id number] Huy Osei 1950 M Date Provider Department Center 03/25/2025 ARON ONEAL JS Padilla Family History Problem Relation Age of Onset Cancer Mother Cancer Brother Diabetes Paternal Grandmother Family Status - Relation Status Age at Mother Father Brother Paternal Grandmother Level of Service:16976 NC OFFICE/OUTPATIENT ESTABLISHED MOD MDM 30 MIN Normal [facility] Orders Onlyon 03-22-2025 Orders Only [id number] Huy Osei 1950 M Date Provider Department Center 03/22/2025 [id number], HISTORICAL JS Padilla Family History Problem Relation Age of Onset Cancer Mother Cancer Brother Diabetes Paternal Grandmother Family Status - Relation Status Age at Mother Brother Paternal Grandmother Normal [facility] MR LUMBAR SPINE WO CONon [address] [address] Magnetic Resonance Report Signed Patient: HUY OSEI MR#: [id number] : 1950 Acct:[id number] Age/Sex: 75 / M ADM Date: 03/08/25 Loc: MRI Attending Dr: Maricarmen Rhoades NP Ordering Physician: Maricarmen Rhoades NP Date of Service: 03/08/25 Procedure(s): MR lumbar spine wo con Accession Number(s): [id number] cc: Maricarmen Rhoades NP; Pool Garcia M.D. [address] [address] Patient Name: HUY OSEI MRN: [id number] date: 1950 Sex: M Assigned Patient Location: MRI Current Patient Location: MRI Accession/Order Number: [id number] Exam Date: 03/08/2025 14:55 Report Date: 03/08/2025 [...] Lentz M.D. 03/08/2025 3:00 PM Dictation Location: [facility] [facility] [employer] Electronically authenticated by: [id number] Y Date: 03/08/2025 15:00 Dictated By: Sanket Lentz M.D. Signed B (more content not included)... [facility] Radiology, Radiologist, - 03/08/2025 [place] [address] Magnetic Resonance Report Signed Patient: HUY OSEI MR#: [id number] : 1950 Acct:[id number] Age/Sex: 75 / M ADM Date: 03/08/25 Loc: MRI Attending Dr: Maricarmen Rhoades NP Ordering Physician: Maricarmen Rhoades NP Date of Service: 03/08/25 Procedure(s): MR lumbar spine wo con Accession Number(s): [id number] cc: Maricarmen Rhoades NP; Pool Garcia M.D. The [place] [id number] Patient Name: HUY OSEI MRN: [facility]:[id number] date: 1950 Sex: M Assigned Patient Location: MRI Current Patient Location: MRI Accession/Order Number: [id number] Exam Date: 03/08/2025 14:55 Report Date: 03/08/2025 [...] Lentz M.D. 03/08/2025 3:00 PM Dictation Location: [place] [address] Electronically authenticated by: [id number] Y Date: 03/08/2025 15:00 Dictated By: Sanket Lentz M.D. Signed By: 03/08/25 1502 DD/ 1500 TD/TT: Dairy Nutritionist: [facility] Radiology Study observation (narrative) [facility] MR LUMBAR SPINE WO CONOrdere d By: Radiologist Radiology on 03-08-2025 [facility] [employer] Work Phone: XR LUMBAR SPINE 6V W BENDING on 02-21-2025 [place] [address] XRay Report Signed Patient: HUY OSEI MR#: [id number] : 1950 Acct:[id number] Age/Sex: 75 / M ADM Date: 02/21/25 Loc: RAD Attending Dr: Maricarmen Rhoades NP Ordering Physician: Maricarmen Rhoades NP Date of Service: 02/21/25 Procedure(s): XR lumbar spine 6V w bending Accession Number(s): [id number] cc: Maricarmen Rhoades NP; Pool Garcia M.D. [place] [id number] Patient Name: HUY OSEI MRN: [id number] date: 1950 Sex: M Assigned Patient Location: [facility] Current Patient Location: [facility] Accession/Order Number: [id number] Exam Date: 02/21/2025 11:57 Report Date: 02/21/2025 [...] NARROWING L5-S1. Impression dictated by: Ezra Lacy Jr. DOtonielOOtoniel 02/21/2025 11:59 AM Dictation Location: [place] [address] Electronically authenticated by: [id number] Y Date: 02/21/2025 11:59 Dictated By: Ezra Lacy M.D. Signed By: 02/21/25 1201 DD/ 58 TD/TT: Dairy Nutritionist: [facility] Radiology, Radiologist, - 02/21/2025 The [place] [id number] XRay Report Signed Patient: HUY OSEI MR#: [id number] : 1950 Acct:[id number] Age/Sex: 75 / M ADM Date: 02/21/25 Loc: RAD Attending Dr: Maricarmen Rhoades NP Ordering Physician: Maricarmen Rhoades NP Date of Service: 02/21/25 Procedure(s): XR lumbar spine 6V w bending Accession Number(s): [id number] cc: Maricarmen Rhoades NP; Pool Garcia M.D. The [place] [id number] Patient Name: HUY OSEI MRN: [facility]:[id number] date: 1950 Sex: M Assigned Patient Location: [facility] Current Patient Location: [facility] Accession/Order Number: [id number] Exam Date: 02/21/2025 11:57 Report Date: 02/21/2025 [...] Jr., D.O. 02/21/2025 11:59 AM Dictation Location: [place] [address] Electronically authenticated by: [id number] Y Date: 02/21/2025 11:59 Dictated By: Ezra Lacy M.D. Signed By: 02/21/25 1201 DD/ 58 TD/TT: Dairy Nutritionist: [facility] Radiology Study observation (narrative) [facility] XR LUMBAR SPINE 6V W BENDING Ordered By: Radiologist Radiology on 02-21-2025 [facility] [employer] Work Phone: XR ANKLE RT MIN 3Von 025 [place] [address] XRay Report Signed Patient: HUY OSEI MR#: [id number] : 1950 Acct:[id number] Age/Sex: 75 / M ADM Date: 02/18/25 Loc: Attending Dr: Chas Forte M.D. Ordering Physician: Chas Forte M.D. Date of Service: 02/18/25 Procedure(s): XR ankle RT min 3V Accession Number(s): [id number] cc: Chas Forte M.D.; Pool Garcia M.D. [place] [address] Patient Name: HUY OSEI MRN: [facility]:[id number] date: 1950 Sex: M Assigned Patient Location: Current Patient Location: Accession/Order Number: [id number] Exam Date: 02/18/2025 16:00 Report Date: 02/18/2025 [...] FRACTURE. Impression dictated by: Ezra Lacy Jr., DOtonielOOtoniel 02/18/2025 4:01 PM Dictation Location: [place] [address] Electronically authenticated by: [id number] Y Date: 02/18/2025 16:01 Dictated By: Ezra Lacy M.D. Signed By: 02/18/25 1604 DD/ 160 TD/TT: Dairy Nutritionist: [facility] Radiology, Radiologist, - 02/18/[address] [address] XRay Report Signed Patient: HUY OSEI MR#: [id number] : 1950 Acct:[id number] Age/Sex: 75 / M ADM Date: 02/18/25 Loc: EC Attending Dr: Chas Forte M.D. Ordering Physician: Chas Forte M.D. Date of Service: 02/18/25 Procedure(s): XR ankle RT min 3V Accession Number(s): [id number] cc: Chas Forte M.D.; Pool Garcia M.D. The [address] [address] Patient Name: HUY OSEI MRN: TBH:[id number] date: 1950 Sex: M Assigned Patient Location: Current Patient Location: Accession/Order Number: [id number] Exam Date: 02/18/2025 16:00 Report Date: 02/18/2025 [...] Jr., D.O. 02/18/2025 4:01 PM Dictation Location: [place] [address] Electronically authenticated by: [id number] Y Date: 02/18/2025 16:01 Dictated By: Ezra Lacy M.D. Signed By: 02/18/25 1604 DD/ 1601 TD/TT: Dairy Nutritionist: [facility] [employer] Radiology Study observation (narrative) [facility] XR ANKLE RT MIN 3VOrdered By : Radiologist Radiology on 02-18-2025 [facility] [employer] Work Phone: ALL BASIC METABOLIC PANELon 02-13-2025 Anion gap [Moles/Vol] 11.7 mmol/L NO [facility] Calcium [Mass/Vol] 10.1 mg/dL 8.5 - 10. 1 mg/dL [facility] Chloride [Moles/Vol] 99 mmol/L 98 - 10 7 mmol/L [facility] CO2 [Moles/Vol] 31 mmol/L 21.0 - 32.0 mmol/L [facility] Creatinine [Mass/Vol] 1.46 mg/dL High 0.70 - 1.30 mg/dL [facility] GFR/1.73 sq M.predicted CKD-EPI (S/P/Bld) [Vol rate/Area] 57 Low >=60 mL/min/1.73m 2 [facility] Glucose [Mass/Vol] 92 mg/dL 74 - 106 mg/dL [facility] Interpretation and review of laboratory results Abnormal [facility] Potassium [Moles/Vol] 3.7 mmol/L 3.5 - 5.1 mmol/L [facility] Sodium [Moles/Vol] 138 mmol/L 136 - 145 mmol/L [facility] TB EGFR-NON AF BHUTANESE 47 Low >=60 mL/min/1.73m 2 [facility] Urea nitrogen [Mass/Vol] 20 mg/dL High 7.0 - 18.0 mg/dL [facility] Urea nitrogen/Creatinine [Mass ratio] 13.7 mg/mg [facility] 5 Albumin [Mass/Vol] 3.6 g/dL 3.4 - 5.0 g/dL [facility] ALBUMIN GLOBULIN RATIO 1 NO [facility] ALP [Catalytic activity/Vol] 87 U/L 46 - 116 U/L [facility] ALT [Catalytic activity/Vol] 21 U/L 16 - 63 U/L [facility] AST [Catalytic activity/Vol] 17 U/L 15 - 37 U/L [facility] Bilirubin [Mass/Vol] 0.6 mg/dL 0.2 - 1 .0 mg/dL [facility] Bilirubin.indirect [Mass/Vol] 0.2 mg/dL 0.0 - 0.2 mg/dL [facility] Globulin (S) [Mass/Vol] 3.5 g/dL [facility] Protein [Mass/Vol] 7.1 g/dL 6.4 - 8.2 g/dL [facility] No Panel Informationon 02-13 [facility] X[facility] ANKLE RT MIN 3Von [address] [address] XRay Report Signed Patient: HUY OSEI MR#: [id number] : 1950 Acct:[id number] Age/Sex: 74 / M ADM Date: 01/14/25 Loc: EC Attending Dr: Chas Forte M.D. Ordering Physician: Chas Forte M.D. Date of Service: 01/14/25 Procedure(s): XR ankle RT min 3V Accession Number(s): [id number] cc: Chas Forte M.D.; Pool Garcia M.D. [address] [address] Patient Name: HUY OSEI MRN: [facility]:[id number] date: 1950 Sex: M Assigned Patient Location: Current Patient Location: Accession/Order Number: [id number] Exam Date: 01/14/2025 14:52 Report Date: 01/14/2025 [...] Lacy Jr., D.O.01/14/2025 2:53 PM Dictation Location: [place] [address] Electronically authenticated by: [id number] Y Date: 01/14/2025 14:53 Dictated By: Ezra Lacy M.D. Signed By: 01/14/25 1455 DD/ 52 TD/TT: Dairy Nutritionist: [facility] Radiology, Radiologist, MD - 01/14/[address] [address] XRay Report Signed Patient: HUY OSEI MR#: [id number] : 1950 Acct:[id number] Age/Sex: 74 / M ADM Date: 01/14/25 Loc: EC Attending Dr: Chas Forte M.D. Ordering Physician: Chas Forte M.D. Date of Service: 01/14/25 Procedure(s): XR ankle RT min 3V Accession Number(s): [id number] cc: Chas Forte M.D.; Pool Garcia M.D. The [address] [address] Patient Name: HUY OSEI MRN: [id number] date: 1950 Sex: M Assigned Patient Location: Current Patient Location: Accession/Order Number: [id number] Exam Date: 01/14/2025 14:52 Report Date: 01/14/2025 [...] Lacy Jr., D.O.01/14/2025 2:53 PM Dictation Location: [place] [address] Electronically authenticated by: [id number] Y Date: 01/14/2025 14:53 Dictated By: Ezra Lacy M.D. Signed By: 01/14/25 1455 DD/ 52 TD/TT: Dairy Nutritionist: [facility] Radiology Study observation (narrative) [facility] XR ANKLE RT MIN 3VOrdered By : Radiologist Radiology on 01-14-2025 [facility] Work Phone: XR ANKLE RT MIN 3Von [address] [address] XRay Report Signed Patient: HUY OSEI MR#: [id number] : 1950 Acct:[id number] Age/Sex: 74 / M ADM Date: 12/31/24 Loc: Attending Dr: Chas Forte M.D. Ordering Physician: Chas Forte M.D. Date of Service: 12/31/24 Procedure(s): XR ankle RT min 3V Accession Number(s): [id number] cc: Chas Forte M.D.; Pool Garcia M.D. The [address] [address] Patient Name: HUY OSEI MRN: [facility]:[id number] date: 1950 Sex: M Assigned Patient Location: Current Patient Location: Accession/Order Number: [id number] Exam Date: 12/31/2024 17:31 Report Date: 01/01/2025 [...] Ramana Caro M.D.01/01/2025 3:15 PM Dictation Location: [place] [address] Electronically authenticated by: [id number] Y Date: 01/01/2025 15:15 Dictated By: Ramana Caro D.O. Signed By: 01/01/25 1517 DD/ 14 TD/TT: Dairy Nutritionist: [facility] Radiology, Radiologist, - 01/01/[address] [place] [address] XRay Report Signed Patient: HUY OSEI MR#: [id number] : 1950 Acct:[id number] Age/Sex: 74 / M ADM Date: 12/31/24 Loc: EC Attending Dr: Chas Forte M.D. Ordering Physician: Chas Forte M.D. Date of Service: 12/31/24 Procedure(s): XR ankle RT min 3V Accession Number(s): [id number] cc: Chas Forte M.D.; Pool Garcia M.D. [place] [address] Patient Name: HUY OSEI MRN: [id number] date: 1950 Sex: M Assigned Patient Location: Current Patient Location: Accession/Order Number: [id number] Exam Date: 12/31/2024 17:31 Report Date: 01/01/2025 [...] Ramana Caro M.D.01/01/2025 3:15 PM Dictation Location: [place] [address] Electronically authenticated by: [id number] Y Date: 01/01/2025 15:15 Dictated By: Ramana Caro D.O. Signed By: 01/01/251516 DD/ 14 TD/TT: Dairy Nutritionist: [facility] Radiology Study observation (narrative) [facility] XR ANKLE RT MIN 3VOrdered By : Radiologist Radiology on 01-01-2025 [facility] Work Phone: Orders Onlyon 09-07-2024 Orders Only [id number] Huy Osei 1950 M Date Provider Department Center 09/07/2024 Tacho-ZAHRAA LECHUGA Salbador Padilla Family History Problem Relation Age of Onset Cancer Mother Cancer Brother Diabetes Paternal Grandmother Family Status - Relation Status Age at Mother Brother Paternal Grandmother Normal [facility] ALL CBC WITH AUTO DIFFon BASOPHILS ABSOLUTE AUTO 0.1 N [facility] Basophils/100 WBC (Bld) 0.7 % 0.2 - 2.0 % [facility] Eosinophils/100 WBC (Bld) 3.2 % 0.9 - 7.0 % [facility] Erythrocyte distribution width (RBC) [Ratio] 12.9 % 11.0 - 15.0 % [facility] Hematocrit (Bld) [Volume fraction] 35.1 % Low 42.0 - 54.0 % [facility] Hemoglobin (Bld) [Mass/Vol] 11.9 g/dL Low 14.0 - 18.0 g/dL [facility] IMMATURE GRANULOCYTES ABS AUTO 0.03 [facility] Immature granulocytes/100 WBC (Bld) 0.4 % 0.0 - 0.5 % [facility] Interpretation and review of laboratory results Abnormal [facility] LYMPHOCYTES ABSOLUTE AUTO 0.9 Low [facility] Lymphocytes/100 WBC (Bld) 13.3 % Low 20.5 - 60.0 % [facility] MCH (RBC) [Entitic mass] 33.1 pg 25.9 - 34.0 pg [facility] MCHC (RBC) [Mass/Vol] 33.9 g/dL 29.9 - 35.2 g/dL [facility] MCV (RBC) [Entitic vol] 97.8 fL High 80.0 - 94.0 fL [facility] MONOCYTES ABSOLUTE AUTO 0.8 N [facility] Monocytes/100 WBC (Bld) 11.7 % 1.7 - 12.0 % [facility] NEUTROPHILS ABSOLUTE AUTO 4.9 [facility] Neutrophils/100 WBC (Bld) 70.7 % 43.0 - 75.0 % [facility] Platelet mean volume (Bld) [Entitic vol] 9.2 fL Low 9.5 - 13.5 fL [facility] TBH EO # 0.2 [facility] TBH PLT 242 [facility] TB RBC 3.59 Low [facility] TBH WBC 6.9 [facility] Healthcare Office Visiton 07-13-2024 Follow-up visit [id number] Huy Osei 1950 M Date Provider Department Center 07/13/2024 HOLLY DOUGLAS Salbador Randy Family History Problem Relation Age of Onset Cancer Mother Cancer Brother Diabetes Paternal Grandmother Family Status - Relation Status Age at Mother Brother Paternal Grandmother Level of Service:95102 [place] OFFICE/OUTPATIENT ESTABLISHED LOW MDM 20 MIN Normal [facility] CT HEAD WO CONTRASTon 2023 CT HEAD [...] Maria Waddell MD 03/12/24 Final result Normal [facility] Comp Metabolic Profon 2023 Albumin [Mass/Vol] 4.3 g/dL Normal 3.5-5.2 [facility] Comment on above: Performed By: #### C DP, PTT, PT, CP #### [address] [address] Mechanic Assistant: Daniel Rosado MD Albumin/Glob Ratio 2.0 Normal 1.0-2.5 [facility] Comment on above: Performed By: #### C DP, PTT, PT, CP #### [address] [address] Mechanic Assistant: Daniel Rosado MD Alkaline Phos 68 U/L Normal 40-129 [facility] Comment on above: Performed By: #### C DP, PTT, PT, CP #### [address] [address] Mechanic Assistant: Daniel Rosado MD ALT [Catalytic activity/Vol] 17 U/L Normal 10-50 [facility] Comment on above: Performed By: #### C DP, PTT, PT, CP #### [address] [address] Mechanic Assistant: Daniel Rosado MD Anion gap [Moles/Vol] 17 mmol/L High 9-16 [facility] Comment on above: Performed By: #### C DP, PTT, PT, CP #### [address] [address] Mechanic Assistant: Daniel Rosado MD AST [Catalytic activity/Vol] 26 U/L Normal 10-50 [facility] Comment on above: Result Comment: SPEC IMEN SLIGHTLY HEMOLYZED, RESULTS MAY BE ADVERSELY AFFECTED. Performed By: #### C DP, PTT, PT, CP #### [address] [address] Mechanic Assistant: Daniel Rosado MD Bilirubin [Mass/Vol] 0.3 mg/dL Normal 0.00-1.20 [facility] Comment on above: Performed By: #### C DP, PTT, PT, CP #### [address] [address] Mechanic Assistant: Daniel Rosado MD Calcium [Mass/Vol] 9.5 mg/dL Normal 8.6-10.4 [facility] Comment on above: Performed By: #### C DP, PTT, PT, CP #### [address] [address] Mechanic Assistant: Daniel Rosado MD Chloride [Moles/Vol] 94 mmol/L Low 98-107 [facility] Comment on above: Performed By: #### C DP, PTT, PT, CP #### [address] [address] Mechanic Assistant: Daniel Rosado MD CO2 [Moles/Vol] 18 mmol/L Low 20-31 [facility] Comment on above: Performed By: #### C DP, PTT, PT, CP #### [address] [address] Mechanic Assistant: Daneil Rosado MD Creatinine [Mass/Vol] 1.8 mg/dL High 0.70-1.20 [facility] Comment on above: Performed By: #### C DP, PTT, PT, CP #### [address] [address] Mechanic Assistant: Daniel Rosado MD GFR/1.73 sq M.predicted among non-blacks MDRD (S/P/Bld) [Vol rate/Area] 40 mL/min/{1.73_m2} Low >60 [facility] Comment on above: Result Comment: These results [...] #### C DP, PTT, PT, CP #### [address] [address] Mechanic Assistant: Daniel Rosado MD Glucose [Mass/Vol] 106 mg/dL High 74-99 [facility] Comment on above: Performed By: #### C DP, PTT, PT, CP #### [address] [address] Mechanic Assistant: Daniel Rosado MD Potassium [Moles/Vol] 3.9 mmol/L Normal 3.7-5.3 [facility] Comment on above: Result Comment: SPEC IMEN SLIGHTLY HEMOLYZED, RESULTS MAY BE ADVERSELY AFFECTED. Performed By: #### C DP, PTT, PT, CP #### [address] [address] Mechanic Assistant: Daniel Rosado MD Protein [Mass/Vol] 6.9 g/dL Normal 6.6-8.7 [facility] Comment on above: Performed By: #### C DP, PTT, PT, CP #### [address] [address] Mechanic Assistant: Daniel Rosado MD Sodium [Moles/Vol] 129 mmol/L Low 136-145 [facility] Comment on above: Performed By: #### C DP, PTT, PT, CP #### [address] [address] Mechanic Assistant: Daniel Rosado MD Urea nitrogen [Mass/Vol] 27 mg/dL High 06-15 [facility] Comment on above: Performed By: #### C DP, PTT, PT, CP #### [address] [address] Mechanic Assistant: Daniel Rosado MD APTTon 03-12-2024 aPTT Coag (Bld) [Time] 22.5 s Low 23.0-36.5 [facility] Comment on above: Result Comment: IV Heparin Therapy Range: 66.0-92.0 sec Performed By: #### C DP, PTT, PT, CP #### [place] [address] Mechanic Assistant: Daniel Rosado MD CBC with Diffon 03-12-2024 Abs. Basophil 0.06 k/uL Normal 0.00-0.20 [facility] Comment on above: Performed By: #### C DP, PTT, PT, CP #### [address] [address] Mechanic Assistant: Daniel Rosado MD Abs.Imm.Granulocyte 0.06 k/uL Normal 0.00-0.30 [facility] Comment on above: Performed By: #### C DP, PTT, PT, CP #### [address] [address] Mechanic Assistant: Daniel Rosado MD Abs.Neutrophil (Seg) 5.10 k/uL Normal 1.50-8.10 [facility] Comment on above: Performed By: #### C DP, PTT, PT, CP #### [address] [address] Mechanic Assistant: Daniel Rosado MD Basophils/100 WBC (Bld) 1 % Normal 0-2 [facility] Comment on above: Performed By: #### C DP, PTT, PT, CP #### [address] [address] Mechanic Assistant: Daniel Rosado MD Eosinophils (Bld) [#/Vol] 0.16 10*3/uL Normal 0.00-0.44 [facility] Comment on above: Performed By: #### C DP, PTT, PT, CP #### [place] [address] Mechanic Assistant: Daniel Rosado MD Eosinophils/100 WBC (Bld) 2 % Normal 1-4 [facility] Comment on above: Performed By: #### C DP, PTT, PT, CP #### [place] [address] Mechanic Assistant: Daniel Rosado MD Erythrocyte distribution width (RBC) [Ratio] 13.6 % Normal 11.8-14.4 [facility] Comment on above: Performed By: #### C DP, PTT, PT, CP #### [place] [address] Mechanic Assistant: Daniel Rosado MD Hematocrit (Bld) [Volume fraction] 34.3 % Low 40.7-50.3 [facility] Comment on above: Performed By: #### C DP, PTT, PT, CP #### [place] [address] Mechanic Assistant: Daniel Rosado MD Hemoglobin (Bld) [Mass/Vol] 11.5 g/dL Low 13.0-17.0 [facility] Comment on above: Performed By: #### C DP, PTT, PT, CP #### [address] [address] Mechanic Assistant: Daniel Rosado MD Immature granulocytes/100 WBC (Bld) 1 % High 0 [facility] Comment on above: Performed By: #### C DP, PTT, PT, CP #### [place] [address] Mechanic Assistant: Daniel Rosado MD Lymphocytes (Bld) [#/Vol] 1.02 10*3/uL Low 1.10-3.70 [facility] Comment on above: Performed By: #### C DP, PTT, PT, CP #### [place] [address] Mechanic Assistant: Daniel Rosado MD Lymphocytes/100 WBC (Bld) 14 % Low 24-43 [facility] Comment on above: Performed By: #### C DP, PTT, PT, CP #### [place] [address] Mechanic Assistant: Daniel Rosado MD MCH (RBC) [Entitic mass] 32.9 pg Normal 25.2-33.5 [facility] Comment on above: Performed By: #### C DP, PTT, PT, CP #### [place] [address] Mechanic Assistant: Daniel Rosado MD MCHC (RBC) [Mass/Vol] 33.5 g/dL Normal 28.4-34.8 [facility] Comment on above: Performed By: #### C DP, PTT, PT, CP #### [place] [address] Mechanic Assistant: Daniel Rosado MD MCV (RBC) [Entitic vol] 98.0 fL Normal 82.6-102.9 [facility] Comment on above: Performed By: #### C DP, PTT, PT, CP #### [place] [address] Mechanic Assistant: Daniel Rosado MD Monocytes (Bld) [#/Vol] 0.86 10*3/uL Normal 0.10-1.20 [facility] Comment on above: Performed By: #### C DP, PTT, PT, CP #### [address] [address] Mechanic Assistant: Daniel Rosado MD Monocytes/100 WBC (Bld) 12 % Normal 3-12 [facility] Comment on above: Performed By: #### C DP, PTT, PT, CP #### [address] [address] Mechanic Assistant: Daniel Rosado MD Neutrophil (Seg) 70 % High 36-65 [facility] Comment on above: Performed By: #### C DP, PTT, PT, CP #### [address] [address] Mechanic Assistant: Daniel Rosado MD NRBC Automated 0.0 per 100 WBC Normal 0.0 [facility] Comment on above: Performed By: #### C DP, PTT, PT, CP #### [address] [address] Mechanic Assistant: Daniel Rsoado MD Platelet mean volume (Bld) [Entitic vol] 8.9 fL Normal 8.1-13.5 [facility] Comment on above: Performed By: #### C DP, PTT, PT, CP #### [address] [address] Mechanic Assistant: Daniel Rosado MD Platelets (Bld) [#/Vol] 240 10*3/uL Normal 138-453 [facility] Comment on above: Performed By: #### C DP, PTT, PT, CP #### [address] [address] Mechanic Assistant: Daniel Rosado MD RBC (Bld) [#/Vol] 3.50 10*6/uL Low 4.21-5.77 [facility] Comment on above: Performed By: #### C DP, PTT, PT, CP #### [address] [id number] Mechanic Assistant: Daniel Rosado MD WBC (Bld) [#/Vol] 7.3 10*3/uL Normal 3.5-11.3 [facility] Comment on above: Performed By: #### C DP, PTT, PT, CP #### [facility] [address] [place] [address] [phone] Mechanic Assistant: Daniel Rosado MD PTon 03-12-2024 INR Coag (PPP) [Relative time] 1.0 {INR} Normal [facility] Comment on above: Result Comment: Therapeutic Range: Moderate Anticoagulant Intensity: INR = 2.0-3.0 High Anticoagulant Intensity: INR = 2.5-3.5 Performed By: #### C DP, PTT, PT, CP #### [facility] [address] [place] [address] [phone] Mechanic Assistant: Daniel Rosado MD PT Coag (PPP) [Time] 13.0 s Normal 11.7-14.9 [facility] Comment on above: Performed By: #### C DP, PTT, PT, CP #### [address] [phone] Mechanic Assistant: Daniel Rosado MD TESTOSTERONE, TOTALon 2022 Testosterone [Mass/Vol] 215 ng/dL Critically low 264-916 [facility] Comment on above: Result Comment: Adul t male reference interval is based on a population of healthy nonobese males (BMI <30) between 19 and 39 years old. Rosa et.al. JCEM 2017,102;1928-9262. PMID: [id number]. Performed By: #### T ESTTOT #### [facility] [address] [place] [address] Dr. Marilin Rothman CBC AUTO DIFFon 01-13-2023 BASO # 0.0 103/ul Normal 0.0-0.1 [facility] Comment on above: Performed By: #### T SH, BMP #### [facility] [address] [place] [address] Dr. Marilin Rothman Basophils/100 WBC (Bld) 0.3 % Normal 0.2-2.0 [facility] Comment on above: Performed By: #### T SH, BMP #### [facility] [address] [place] [address] Dr. Marilin Rothman EO # 0.0 103/ul Normal 0.0-0.7 [facility] Comment on above: Performed By: #### T SH, BMP #### [facility] [address] [place] [address] Dr. Marilin Rothman Eosinophils/100 WBC (Bld) 0.2 % Critically low 0.9-7.0 [facility] Comment on above: Performed By: #### T SH, BMP #### [facility] [address] [place] [address] Dr. Marilin Rothman Erythrocyte distribution width (RBC) [Ratio] 13.3 % Normal 11.0-15.0 [facility] Comment on above: Performed By: #### T SH, BMP #### [facility] [address] [place] [address] Dr. Marilin Rothman Hematocrit (Bld) [Volume fraction] 38.2 % Critically low 42.0-54.0 [facility] Comment on above: Performed By: #### T SH, BMP #### [facility] [address] [place] [address] Dr. Marilin Rothman Hemoglobin (Bld) [Mass/Vol] 13.1 g/dL Critically low 14.0-18.0 [facility] Comment on above: Performed By: #### T SH, BMP #### [facility] [address] [place] [address] Dr. Marilin Rothman IG # 0.08 10e3/ul Critically high 0.00-0.03 [facility] Comment on above: Performed By: #### T SH, BMP #### [facility] [address] [address] [address] Marilin Rothman IG % 0.8 % Critically high 0.0-0.5 [facility] Comment on above: Performed By: #### T SH, BMP #### [facility] [address] [address] [address] Marilin Rothman LYMPH # 1.0 103/ul Critically low 1.2-3.8 [facility] Comment on above: Performed By: #### T SH, BMP #### [facility] [address] [address] [address] Marilin Rothman Lymphocytes/100 WBC (Bld) 10.1 % Critically low 20.5-60.0 [facility] Comment on above: Performed By: #### T SH, BMP #### [facility] [address] [place] [address] Dr. Marilin Rothman MANUAL DIFF REQ NO Normal [facility] Comment on above: Performed By: #### T SH, BMP #### [facility] [address] [place] [address] Dr. Marilin Rothman MCH (RBC) [Entitic mass] 32.8 pg Normal 25.9-34.0 [facility] Comment on above: Performed By: #### T SH, BMP #### [facility] [address] [place] [address] Dr. Marilin Rothman MCHC (RBC) [Mass/Vol] 34.3 g/dL Normal 29.9-35.2 [facility] Comment on above: Performed By: #### T SH, BMP #### [facility] [address] [place] [address] Dr. Marilin Rothman MCV (RBC) [Entitic vol] 95.7 fL Critically high 80.0-94 .0 [facility] Comment on above: Performed By: #### T SH, BMP #### [facility] [address] [place] [address] Dr. Marilin Rothman MONO # 0.8 103/ul Normal 0.3-0.8 [facility] Comment on above: Performed By: #### T SH, BMP #### [facility] [address] [place] [address] Dr. Marilin Rothman Monocytes/100 WBC (Bld) 8.1 % Normal 1.7-12.0 [facility] Comment on above: Performed By: #### T SH, BMP #### [facility] [address] [place] [address] Dr. Marilin Rothman NEUT # 7.6 103/ul Critically high 1.4-6.5 [facility] Comment on above: Performed By: #### T SH, BMP #### [facility] [address] [place] [address] Dr. Marilin Rothman Neutrophils/100 WBC (Bld) 80.5 % Critically high 43.0-75.0 [facility] Comment on above: Performed By: #### T SH, BMP #### [facility] [address] [place] [address] Dr. Marilin Rothman Platelet mean volume (Bld) [Entitic vol] 8.6 fL Critically low 9.5-13.5 [facility] Comment on above: Performed By: #### T SH, BMP #### [facility] [address] [place] [address] Dr. Marilin Rothman PLT 237 103/ul Normal 150-450 [facility] Comment on above: Performed By: #### T SH, BMP #### [facility] [address] [place] [address] Dr. Marilin Rothman RBC 3.99 106/ul Critically low 4.70-6.10 [facility] Comment on above: Performed By: #### T SH, BMP #### [facility] [address] [place] [address] Dr. Marilin Rothman WBC 9.4 103/ul Normal 4.0-11.0 [facility] Comment on above: Performed By: #### T SH, BMP #### [facility] [address] [place] [address] Dr. Marilin Rothman PROF CHEM 8 (BAS METB)on Anion gap [Moles/Vol] 7.8 mmol/L Normal [facility] Comment on above: Performed By: #### T SH, BMP #### [facility] [address] [address] [address] Marilin Rothman Calcium [Mass/Vol] 9.9 mg/dL Normal 8.5-10.[address] [facility] Comment on above: Performed By: #### T SH, BMP #### [facility] [address] [place] [address] Dr. Marilin Rothman Chloride [Moles/Vol] 102 mmol/L Normal 98-107 [facility] Comment on above: Performed By: #### T SH, BMP #### [facility] [address] [place] [address] Dr. Marilin Rothman CO2 [Moles/Vol] 31.8 mmol/L Normal 21.0-32.0 [facility] Comment on above: Performed By: #### T SH, BMP #### [facility] [address] [place] [address] Dr. Marilin Rothman Creatinine [Mass/Vol] 1.30 mg/dL Normal 0.70-1.30 [facility] Comment on above: Performed By: #### T SH, BMP #### [facility] [address] [place] [address] Dr. Marilin Rothman EGFR-AF BHUTANESE >60 Normal >=60 [facility] Comment on above: Performed By: #### T SH, BMP #### [facility] [address] [place] [address] Dr. Marilin Rothman EGFR-NON AF BHUTANESE 54 mL/min/1.73m2 Critically low >=60 [facility] Comment on above: Performed By: #### T SH, BMP #### [facility] [address] [place] [address] Dr. Marilin Rothman Glucose [Mass/Vol] 110 mg/dL Critically high 74-106 [facility] Comment on above: Performed By: #### T SH, BMP #### [facility] [address] [place] [address] Dr. Marilin Rothman Potassium [Moles/Vol] 4.6 mmol/L Normal 3.5-5.1 [facility] Comment on above: Performed By: #### T SH, BMP #### [facility] [address] [place] [address] Dr. Marilin Rothman Sodium [Moles/Vol] 137 mmol/L Normal 136-[address] [facility] Comment on above: Performed By: #### T SH, BMP #### [facility] [address] [place] [address] Dr. Marilin Rothman Urea nitrogen [Mass/Vol] 18.0 mg/dL Normal 7.0-18.0 [facility] Comment on above: Performed By: #### T SH, BMP #### [facility] [address] [place] [address] Dr. Marilin Rothman Urea nitrogen/Creatinine [Mass ratio] 13.8 mg/mg Normal [facility] Comment on above: Performed By: #### T ALEXANDER, BMP #### [facility] [address] [place] [address] Dr. Marilin Rothman TSHon 01-13-2023 TSH 0.951 uIU/mL Normal 0.358-3.740 [facility] Comment on above: Performed By: #### T ALEXANDER, BMP #### [facility] [address] [place] [address] Dr. Marilin Rothman XR LSPINE W_OBLS AND [...] by: BRADY MORRIS Date: 2022-10-27 17:11 Normal [facility] CBC AUTO DIFFon 07-27-2022 BASO # 0.1 103/ul Normal 0.0-0.1 [facility] Comment on above: Performed By: #### T SH, BMP #### [facility] [address] [place] [address] Dr. Marilin Rothman Basophils/100 WBC (Bld) 0.8 % Normal 0.2-2.0 [facility] Comment on above: Performed By: #### T SH, BMP #### [facility] [address] [place] [address] Dr. Marilin Rothman EO # 0.1 103/ul Normal 0.0-0.7 [facility] Comment on above: Performed By: #### T SH, BMP #### [facility] [address] [place] [address] Dr. Marilin Rothman Eosinophils/100 WBC (Bld) 2.2 % Normal 0.9-7.0 [facility] Comment on above: Performed By: #### T SH, BMP #### [facility] [address] [place] [address] Dr. Marilin Rothman Erythrocyte distribution width (RBC) [Ratio] 13.2 % Normal 11.0-15.0 [facility] Comment on above: Performed By: #### T SH, BMP #### [facility] [address] [place] [address] Dr. Marilin Rothman Hematocrit (Bld) [Volume fraction] 38.6 % Critically low 42.0-54.0 [facility] Comment on above: Performed By: #### T SH, BMP #### [facility] [address] [place] [address] Dr. Marilin Rothman Hemoglobin (Bld) [Mass/Vol] 12.5 g/dL Critically low 14.0-18.0 [facility] Comment on above: Performed By: #### T SH, BMP #### [facility] [address] [place] [address] Dr. Marilin Rothman IG # 0.06 10e3/ul Critically high 0.00-0.03 [facility] Comment on above: Performed By: #### T SH, BMP #### [facility] [address] [place] [address] Dr. Marilin Rothman IG % 1.0 % Critically high 0.0-0.5 [facility] Comment on above: Performed By: #### T SH, BMP #### [facility] [address] [address] [address] Marilin Rothman LYMPH # 1.0 103/ul Critically low 1.2-3.8 [facility] Comment on above: Performed By: #### T SH, BMP #### [facility] [address] [place] [address] Dr. Marilin Rothman Lymphocytes/100 WBC (Bld) 15.9 % Critically low 20.5-60.0 [facility] Comment on above: Performed By: #### T SH, BMP #### [facility] [address] [place] [address] Dr. Marilin Rothman MANUAL DIFF REQ NO Normal [facility] Comment on above: Performed By: #### T SH, BMP #### [facility] [address] [place] [address] Dr. Marilin Rothman MCH (RBC) [Entitic mass] 32.2 pg Normal 25.9-34.0 [facility] Comment on above: Performed By: #### T SH, BMP #### [facility] [address] [place] [address] Dr. Marilin Rothman MCHC (RBC) [Mass/Vol] 32.4 g/dL Normal 29.9-35.2 [facility] Comment on above: Performed By: #### T SH, BMP #### [facility] [address] [place] [address] Dr. Marilin Rothman MCV (RBC) [Entitic vol] 99.5 fL Critically high 80.0-94 .0 [facility] Comment on above: Performed By: #### T SH, BMP #### [facility] [address] [place] [address] Dr. Marilin Rothman MONO # 0.8 103/ul Normal 0.3-0.8 [facility] Comment on above: Performed By: #### T SH, BMP #### [facility] [address] [address] [address] Marilin Rothman Monocytes/100 WBC (Bld) 12.9 % Critically high 1.7-12. 0 [facility] Comment on above: Performed By: #### T SH, BMP #### [facility] [address] [address] [address] Marilin Rothman NEUT # 4.2 103/ul Normal 1.4-6.5 [facility] Comment on above: Performed By: #### T SH, BMP #### [facility] [address] [address] [address] Marilin Rothman Neutrophils/100 WBC (Bld) 67.2 % Normal 43.0-75.0 [facility] Comment on above: Performed By: #### T SH, BMP #### [facility] [address] [place] [address] Dr. Marilin Rothman Platelet mean volume (Bld) [Entitic vol] 9.3 fL Critically low 9.5-13.5 [facility] Comment on above: Performed By: #### T SH, BMP #### [facility] [address] [place] [address] Dr. Marilin Rothman PLT 260 103/ul Normal 150-450 [facility] Comment on above: Performed By: #### T SH, BMP #### [facility] [address] [address] [address] Marilin Rothman RBC 3.88 106/ul Critically low 4.70-6.10 [facility] Comment on above: Performed By: #### T SH, BMP #### [facility] [address] [address] [address] Marilin Rothman WBC 6.3 103/ul Normal 4.0-11.0 [facility] Comment on above: Performed By: #### T SH, BMP #### [facility] [address] [place] [address] Dr. Marilin Rothman LIPID PROFILEon 07-27-2022 CHOL-HDL RATIO NORM SEE BELOW Normal [facility] Comment on above: Result Comment: 3.3 - 4.4 LOW RISK 4.4 - 7.1 AVERAGE RISK 7.1 - 11.0 MODERATE RISK >11.0 HIGH RISK Performed By: #### T SH, BMP #### [facility] [address] [address] [address] Marilin Rothman Cholesterol [Mass/Vol] 155 mg/dL Normal <=200 [facility] Comment on above: Performed By: #### T SH, BMP #### [facility] [address] [address] [address] Marilin Rothman Cholesterol in HDL [Mass/Vol] 76 mg/dL Critically high 40-60 [facility] Comment on above: Performed By: #### T SH, BMP #### [facility] [address] [place] [address] Dr. Marilin Rothman Cholesterol in LDL [Mass/Vol] 54.8 mg/dL Normal [facility] Comment on above: Performed By: #### T SH, BMP #### [facility] [address] [place] [address] Dr. Marilin Rothman Cholesterol.total/Grace sterol in HDL [Mass ratio] 2.0 {ratio} Normal [facility] Comment on above: Performed By: #### T SH, BMP #### [facility] [address] [place] [address] Dr. Marilin Rothman HDL NORMAL > or = 60 mg/dl - LO W CARDIOVASCULAR RISK <40 mg/dl - HIGH CARDIOVASCULAR RISK Normal [facility] Comment on above: Performed By: #### T SH, BMP #### [facility] [address] [place] [address] Dr. Marilin Rothman LDL CALC NORMAL SEE BELOW Normal [facility] Comment on above: Result Comment: <100 mg/dl OPTIMAL 100 - 129 mg/dl NEAR OR ABOVE OPTIMAL 130 - 159 mg/dl BORDERLINE HIGH 160 - 189 mg/dl HIGH >190 mg/dl VERY HIGH Performed By: #### T SH, BMP #### [facility] [address] [address] [address] Marilin Rothman Triglyceride [Mass/Vol] 121 mg/dL Normal <=150 T [facility] Comment on above: Performed By: #### T SH, BMP #### [facility] [address] [address] [address] Marilin Rothman VLDL CALC 24.2 mg/dL Normal [facility] Comment on above: Performed By: #### T SH, BMP #### [facility] [address] [place] [address] Dr. Marilin Rothman LIVER PROFILEon 07-27-2022 Albumin [Mass/Vol] 3.9 g/dL Normal 3.4-5.[address] [facility] Comment on above: Performed By: #### T SH, BMP #### [facility] [address] [place] [address] Dr. Marilin Rothman Albumin/Globulin [Mass ratio] 1.2 {ratio} Normal [facility] Comment on above: Performed By: #### T SH, BMP #### [facility] [address] [place] [address] Dr. Marilin Rothman ALP [Catalytic activity/Vol] 89 U/L Normal 46-116 [facility] Comment on above: Performed By: #### T SH, BMP #### [facility] [address] [place] [address] Dr. Marilin Rothman ALT [Catalytic activity/Vol] 26 U/L Normal 16-63 [facility] Comment on above: Performed By: #### T SH, BMP #### [facility] [address] [place] [address] Dr. Marilin Rothman AST [Catalytic activity/Vol] 17 U/L Normal 15-37 [facility] Comment on above: Performed By: #### T SH, BMP #### [facility] [address] [place] [address] Dr. Marilin Rothman BILI, CONJUGATED 0.2 mg/dL Normal 0.0-0.2 [facility] Comment on above: Performed By: #### T SH, BMP #### [facility] [address] [place] [address] Dr. Marilin Rothman Bilirubin [Mass/Vol] 0.6 mg/dL Normal 0.2-1.0 [facility] Comment on above: Performed By: #### T SH, BMP #### [facility] [address] [place] [address] Dr. Marilin Rothman Globulin (S) [Mass/Vol] 3.2 g/dL Normal [facility] Comment on above: Performed By: #### T SH, BMP #### [facility] [address] [place] [address] Dr. Marilin Rothman Protein [Mass/Vol] 7.1 g/dL Normal 6.4-8.[address] [facility] Comment on above: Performed By: #### T SH, BMP #### [facility] [address] [place] [address] Dr. Marilin Rothman PROF CHEM 8 (BAS METB)on Anion gap [Moles/Vol] 13.7 mmol/L Normal [facility] Comment on above: Performed By: #### T SH, BMP #### [facility] [address] [place] [address] Dr. Marilin Rothman Calcium [Mass/Vol] 9.3 mg/dL Normal 8.5-10.[address] [facility] Comment on above: Performed By: #### T SH, BMP #### [facility] [address] [place] [address] Dr. Marilin Rothman Chloride [Moles/Vol] 96 mmol/L Critically low 98-107 [facility] Comment on above: Performed By: #### T SH, BMP #### [facility] [address] [place] [address] Dr. Marilin Rothman CO2 [Moles/Vol] 25.9 mmol/L Normal 21.0-32.0 [facility] Comment on above: Performed By: #### T SH, BMP #### [facility] [address] [place] [address] Dr. Marilin Rothman Creatinine [Mass/Vol] 1.10 mg/dL Normal 0.70-1.30 [facility] Comment on above: Performed By: #### T SH, BMP #### [facility] [address] [place] [address] Dr. Marilin Rothman EGFR-AF BHUTANESE >60 Normal >=60 [facility] Comment on above: Performed By: #### T SH, BMP #### [facility] [address] [place] [address] Dr. Marilin Rothman EGFR-NON AF BHUTANESE >60 Normal >=60 [facility] Comment on above: Performed By: #### T SH, BMP #### [facility] [address] [address] [address] Marilin Rothman Glucose [Mass/Vol] 93 mg/dL Normal 74-[address] [facility] Comment on above: Performed By: #### T SH, BMP #### [facility] [address] [place] [address] Dr. Marilin Rothman Potassium [Moles/Vol] 4.6 mmol/L Normal 3.5-5.1 [facility] Comment on above: Performed By: #### T SH, BMP #### [facility] [address] [place] [address] Dr. Marilin Rothman Sodium [Moles/Vol] 131 mmol/L Critically low 136-145 [facility] Comment on above: Performed By: #### T SH, BMP #### [facility] [address] [place] [address] Dr. Marilin Rothman Urea nitrogen [Mass/Vol] 14.0 mg/dL Normal 7.0-18.0 [facility] Comment on above: Performed By: #### T SH, BMP #### [facility] [address] [place] [address] Dr. Marilin Rothman Urea nitrogen/Creatinine [Mass ratio] 12.7 mg/mg Normal [facility] Comment on above: Performed By: #### T SH, BMP #### [facility] [address] [place] [address] Dr. Marilin Rothman TSHon 07-27-2022 TSH 1.933 uIU/mL Normal 0.358-3.740 [facility] Comment on above: Performed By: #### T SH, BMP #### [facility] [address] [place] [address] Dr. Marilin Rothman VITAMIN D 25 OHon 07-27-2022 VIT D 25-OH 85.4 ng/mL Normal [facility] Comment on above: Performed By: #### T SH, BMP #### [facility] [address] [place] [address] Dr. Marilin Rothman VIT D RANGES SEE BELOW Normal [facility] Comment on above: Result Comment: <20 ng/mL Vit D deficient 20 - <30 ng/mL Vit D insufficient 30 - 100 ng/mL Vit D sufficient >100 ng/mL Potential Toxicity Performed By: #### T SH, BMP #### [facility] [address] [place] [address] Dr. Marilin Rothman ACID FAST SMEAR AND CXon Acid Fast Culture Negative Normal [facility] Comment on above: Result Comment: No a amos fast bacilli isolated after 6 weeks. Performed By: #### T SH, BMP #### [facility] [address] [place] [address] Dr. Marilin Rothman Acid Fast Smear Negative Normal [facility] Comment on above: Performed By: #### T SH, BMP #### [facility] [address] [place] [address] Dr. Marilin Rothman AF[employer] Specimen Processing Direct Inoculation Normal [facility] Comment on above: Performed By: #### T SH, BMP #### [facility] [address] [place] [address] Dr. Marilin Rothman FUNGAL CULTUREon 04-09-2022 Fungus (Mycology) Culture Final report Normal [facility] Comment on above: Performed By: #### C XFUN #### [facility] [address] [place] [address] Dr. Marilin Rothman Fungus Stain Final report Normal [facility] Comment on above: Performed By: #### C XFUN #### [facility] [address] [place] [address] Dr. Marilin Rothman Result 1 Comment Normal [facility] Comment on above: Result Comment: RITA/ Calcofluor preparation: no fungus observed. Performed By: #### C XFUN #### [facility] [address] [place] [address] Dr. Marilin Rothman Result Comment: No y east or mold isolated after 4 weeks. LOWER RESPIRATORY CULTUREon 03-14-2022 Lower Respiratory Culture Final report Normal [facility] Comment on above: Performed By: #### C XLORES #### [facility] [address] [address] [address] Marilin Rothman Result 1 Comment Normal [facility] Comment on above: Result Comment: Rout ine respiratory carlito Performed By: #### C XLORES #### [facility] [address] [address] [address] Marilin Rothman CYTOLOGYon 03-11-2022 SENT TO REF LAB 03/12/[address] [facility] Comment on above: Performed By: #### C YTO #### [facility] [address] [place] [address] Dr. Marilin Rothman GRAM STAINon 03-11-2022 COMMENTS NO ORGANISMS OBSERVED Normal [facility] Comment on above: Performed By: #### G STAIN #### [facility] [address] [address] [address] Marilin Rothman DIPHTHEROIDS Normal [facility] Comment on above: Performed By: #### G STAIN #### [facility] [address] [place] [address] Dr. Marilin Rothman EPITHELIALS FEW Normal [facility] Comment on above: Performed By: #### G STAIN #### [facility] [address] [place] [address] Dr. Marilin Rothman FUNGAL ELEMENTS Normal [facility] Comment on above: Performed By: #### G STAIN #### [facility] [address] [address] [address] Marilin Rothman GRAM NEG BACILLI Normal [facility] Comment on above: Performed By: #### G STAIN #### [facility] [address] [place] [address] Dr. Marilin MCCORMACK NEG DIPPLOCOCCI Normal [facility] Comment on above: Performed By: #### G STAIN #### [facility] [address] [address] [address] Marilin Rothman GRAM POS BACILLI [place] [facility] Comment on above: Performed By: #### G STAIN #### [facility] [address] [place] [address] Dr. Marilin Rothman GRAM POSITIVE COCCI Normal [facility] Comment on above: Performed By: #### G STAIN #### [facility] [address] [place] [address] Dr. Marilin Rothman GRAM STAIN SOURCE R. LOWER LOBE LAVAGE [facility] Comment on above: Performed By: #### G STAIN #### [facility] [address] [place] [address] Dr. Marilin Rothman GS_DIPTH [facility] Comment on above: Performed By: #### G STAIN #### [facility] [address] [place] [address] Dr. Marilin Rothman WBC FEW [facility] Comment on above: Performed By: #### G STAIN #### [facility] [address] [place] [address] Dr. Marilin Rothman IMMUNOGLOBULIN E, TOTALon Immunoglobulin E, Total 129 IU/mL Normal 6-495 [facility] Comment on above: Performed By: #### I GETOT #### [facility] [address] [place] [address] Dr. Marilin Rothman CBC AUTO DIFFon 03-01-2022 BASO # 0.1 103/ul Normal 0.0-0.1 [facility] Comment on above: Performed By: #### T SH, BMP #### [facility] [address] [place] [address] Dr. Marilin Rothman Basophils/100 WBC (Bld) 0.9 % Normal 0.2-2.0 [facility] Comment on above: Performed By: #### T SH, BMP #### [facility] [address] [place] [address] Dr. Marilin Rothman EO # 0.7 103/ul Normal 0.0-0.7 [facility] Comment on above: Performed By: #### T SH, BMP #### [facility] [address] [place] [address] Dr. Marilin Rothman Eosinophils/100 WBC (Bld) 9.2 % Critically high 0.9-7.0 [facility] Comment on above: Performed By: #### T SH, BMP #### [facility] [address] [place] [address] Dr. Marilin Rothman Erythrocyte distribution width (RBC) [Ratio] 13.0 % Normal 11.0-15.0 [facility] Comment on above: Performed By: #### T SH, BMP #### [facility] [address] [place] [address] Dr. Marilin Rothman Hematocrit (Bld) [Volume fraction] 39.5 % Critically low 42.0-54.0 [facility] Comment on above: Performed By: #### T SH, BMP #### [facility] [address] [place] [address] Dr. Marilin Rothman Hemoglobin (Bld) [Mass/Vol] 13.0 g/dL Critically low 14.0-18.0 [facility] Comment on above: Performed By: #### T SH, BMP #### [facility] [address] [place] [address] Dr. Marilin Rothman IG # 0.03 10e3/ul Normal 0.00-0.03 [facility] Comment on above: Performed By: #### T SH, BMP #### [facility] [address] [place] [address] Dr. Marilin Rothman IG % 0.4 % Normal 0.0-0.5 [facility] Comment on above: Performed By: #### T SH, BMP #### [facility] [address] [place] [address] Dr. Marilin Rothman LYMPH # 1.1 103/ul Critically low 1.2-3.8 [facility] Comment on above: Performed By: #### T SH, BMP #### [facility] [address] [place] [address] Dr. Marilin Rothman Lymphocytes/100 WBC (Bld) 14.2 % Critically low 20.5-60.0 [facility] Comment on above: Performed By: #### T SH, BMP #### [facility] [address] [place] [address] Dr. Marilin Rothman MANUAL DIFF REQ NO Normal [facility] Comment on above: Performed By: #### T SH, BMP #### [facility] [address] [place] [address] Dr. Marilin Rothman MCH (RBC) [Entitic mass] 32.2 pg Normal 25.9-34.0 [facility] Comment on above: Performed By: #### T SH, BMP #### [facility] [address] [place] [address] Dr. Marilin Rothman MCHC (RBC) [Mass/Vol] 32.9 g/dL Normal 29.9-35.2 [facility] Comment on above: Performed By: #### T SH, BMP #### [facility] [address] [place] [address] Dr. Marilin Rothman MCV (RBC) [Entitic vol] 97.8 fL Critically high 80.0-94 .0 [facility] Comment on above: Performed By: #### T SH, BMP #### [facility] [address] [place] [address] Dr. Marilin Rothman MONO # 0.9 103/ul Critically high 0.3-0.8 [facility] Comment on above: Performed By: #### T SH, BMP #### [facility] [address] [place] [address] Dr. Marilin Rothman Monocytes/100 WBC (Bld) 11.8 % Normal 1.7-12.0 [facility] Comment on above: Performed By: #### T SH, BMP #### [facility] [address] [place] [address] Dr. Marilin Rothman NEUT # 4.7 103/ul Normal 1.4-6.5 [facility] Comment on above: Performed By: #### T SH, BMP #### [facility] [address] [place] [address] Dr. Marilin Rothman Neutrophils/100 WBC (Bld) 63.5 % Normal 43.0-75.0 [facility] Comment on above: Performed By: #### T SH, BMP #### [facility] [address] [place] [address] Dr. Marilin Rothman Platelet mean volume (Bld) [Entitic vol] 8.7 fL Critically low 9.5-13.5 [facility] Comment on above: Performed By: #### T SH, BMP #### [facility] [address] [place] [address] Dr. Marilin Rothman PLT 250 103/ul Normal 150-450 [facility] Comment on above: Performed By: #### T SH, BMP #### [facility] [address] [place] [address] Dr. Marilin Rothman RBC 4.04 106/ul Critically low 4.70-6.10 [facility] Comment on above: Performed By: #### T SH, BMP #### [facility] [address] [place] [address] Dr. Marilin Rothman WBC 7.5 103/ul Normal 4.0-11.0 [facility] Comment on above: Performed By: #### T SH, BMP #### [facility] [address] [place] [address] Dr. Marilin Rothman PROTIMEon 03-01-2022 INR Coag (PPP) [Relative time] 0.97 {INR} Normal [facility] Comment on above: Performed By: #### T SH, BMP #### [facility] [address] [place] [address] Dr. Marilin Rothman INR GUIDELINES SEE BELOW Normal [facility] Comment on above: Result Comment: TOAN RED INR: 2.0 - 3.0 CONDITIONS NOT LISTED BELOW 2.5 - 3.5 FOR PROSTHETIC HEART VALVE REPLACEMENT 2.5 - 3.5 RECURRENT THROMBOSIS Performed By: #### T SH, BMP #### [facility] [address] [place] [address] Dr. Marilin Rothman PT Coag (PPP) [Time] 10.5 s Normal 9.0-11.6 [facility] Comment on above: Performed By: #### T SH, BMP #### [facility] [address] [place] [address] Dr. Marilin Rothman PTTon 03-01-2022 aPTT Coag (Bld) [Time] 27.5 s Normal 22.3-36.2 Th e [facility] Comment on above: Performed By: #### T SH, BMP #### [facility] [address] [place] [address] Dr. Marilin Rothman ASPERGILLUS AB, QUANTITATIVE DIDon 02-28-2022 Aspergillus flavus Negative Normal Neg:<1:[address] [facility] Comment on above: Performed By: #### T SH, BMP #### [facility] [address] [place] [address] Dr. Marilin Rothman Aspergillus fumigatus Negative Normal Neg:<1:1 [facility] Comment on above: Performed By: #### T SH, BMP #### [facility] [address] [place] [address] Dr. Marilin Rothman Aspergillus niger Negative Normal Neg:<1:1 [facility] Comment on above: Performed By: #### T SH, BMP #### [facility] [address] [place] [address] Dr. Marilin Rothman ANTI NEUTROPHIL CYTOPLASMIC AB (ANCA) PRon 02-26-2022 Antimyeloperoxidase (MPO) Abs <9.0 Normal 0.0-9.0 [facility] Comment on above: Result Comment: Perf ormed at: BN Performed By: #### A NCAP #### [facility] [address] [place] [address] Dr. Marilin Rothman Antiproteinase 3 (NC-3) Abs <3.5 Normal 0.0-3.5 [facility] Comment on above: Result Comment: Perf ormed at: BN Performed By: #### A NCAP #### [facility] [address] [place] [address] Dr. Marilin Rothman Atypical pANCA <1:20 Normal Neg:<1:20 [facility] Comment on above: Result Comment: The atypical pANCA pattern has been observed in a significant percentage of patients with ulcerative colitis, primary sclerosing cholangitis and autoimmune hepatitis. Performed at: CB Performed By: #### A NCAP #### [facility] [address] [place], [place] [id number] Dr. Marilin Rothman Cytoplasmic (C-ANCA) <1:20 Normal Neg:<1:20 [facility] Comment on above: Result Comment: Perf ormed at: CB Performed By: #### A NCAP #### [facility] [address] [address] [address] Marilin Rothman Perinuclear (P-ANCA) <1:20 Normal Neg:<1:20 [facility] Comment on above: Result Comment: The presence of positive fluorescence exhibiting P-ANCA or C-ANCA patterns alone is not specific for the diagnosis of Antwan's Granulomatosis (WG) or microscopic polyangiitis. Decisions about treatment should not be based solely on ANCA IFA results. The International ANCA Group Consensus recommends follow up testing of positive sera with both NC-3 and MPO-ANCA enzyme immunoassays. As many as 5% serum samples are positive only by EIA. Ref. AM J Clin Pathol 1999;111:507-513. Performed at: CB Performed By: #### A NCAP #### [facility] [address] [place] [address] LUNG CANCER SCREENINGon [...] BRADY MORRIS Date: 2022-02-24 11:30 Normal [facility] PROF CHEM 8 (BAS METB)on Anion gap [Moles/Vol] 8.6 mmol/L Normal [facility] Comment on above: Performed By: #### B MP #### [facility] [address] [address] [address] Marilin Rothman Calcium [Mass/Vol] 9.0 mg/dL Normal 8.5-10.[address] [facility] Comment on above: Performed By: #### B MP #### [facility] [address] [address] [address] Marilin Rothman Chloride [Moles/Vol] 100 mmol/L Normal 98-107 [facility] Comment on above: Performed By: #### B MP #### [facility] [address] [address] [address] Marilin Rothman CO2 [Moles/Vol] 30.5 mmol/L Normal 21.0-32.0 [facility] Comment on above: Performed By: #### B MP #### [facility] [address] [address] [address] Marilin Rothman Creatinine [Mass/Vol] 1.35 mg/dL Critically high 0.70-1.30 [facility] Comment on above: Performed By: #### B MP #### [facility] [address] [address] [address] Marilin Rothman EGFR-AF BHUTANESE >60 Normal >=60 [facility] Comment on above: Performed By: #### B MP #### [facility] [address] [address] [address] Marilin Rothman EGFR-NON AF BHUTANESE 52 mL/min/1.73m2 Critically low >=60 [facility] Comment on above: Performed By: #### B MP #### [facility] [address] [address] [address] Marilin Rothman Glucose [Mass/Vol] 100 mg/dL Normal 74-[address] [facility] Comment on above: Performed By: #### B MP #### [facility] [address] [address] [address] Marilin Rothman Potassium [Moles/Vol] 4.1 mmol/L Normal 3.5-5.1 [facility] Comment on above: Performed By: #### B MP #### [facility] [address] [address] [address] Marilin Rothman Sodium [Moles/Vol] 135 mmol/L Critically low 136-145 [facility] Comment on above: Performed By: #### B MP #### [facility] [address] [address] [address] Marilin Rothman Urea nitrogen [Mass/Vol] 13.0 mg/dL Normal 7.0-18.0 [facility] Comment on above: Performed By: #### B MP #### [facility] [address] [address] [address] Marilin Rothman Urea nitrogen/Creatinine [Mass ratio] 9.6 mg/mg Normal [facility] Comment on above: Performed By: #### B MP #### [facility] [address] [address] [address] Marilin Rothman Cardiovascular Lab Reporton 08-22-2020 Cardiovascular Lab Report [place] Patient Name: Huy Osei [facility] MR #: [id number] Physician: Sanket Reyes M.D. Department of Service Date: 08/21/2020 Medicine Birthdate: 1950 Division of Room #: Cardiology Adult Cardiovascular Services [place] [address] Cardiovascular Laboratory Report DRUG COUNSELOR: Aron Anderson M.D. FINAL IMPRESSION: Successful angioplasty, [...] inner cannula was then exchanged for a 5-Cameroonian sheath. Through the 5-Cameroonian sheath, a Uni-Flush catheter was introduced into the abdominal aorta and the aortic bifurcation was traversed using a 0.035 hydrophilic guidewire. Next, the catheter was then placed in the right femoral artery and angiography was performed. A guidewire exchange was then performed removing the catheter and sheath and replacing these with a 6-Cameroonian Renaldo through which a NaviCross was introduced [...] was achieved. Final angiography was performed. A 6-Cameroonian Angio-Seal was deployed. Adequate hemostasis was achieved. [...] Reyes M.D. Date Trans: 08/22/2020 02:59 A/noreen [id number] cc: Pool Garcia M.D. [address] [facility] [address] [place] [facility] Cardiovascular Lab Reporton 05-06-2020 Cardiovascular Lab Report [place] Patient Name: Huy Osei [facility] MR #: [id number] Physician: Aron Mar Department of Brady Anderson Medicine Service Date: 05/05/2020 Division of Birthdate: 1950 Cardiology Room #: 3CD 149156 Adult Cardiovascular Services [place] [address] Cardiovascular Laboratory Report INDICATION: The patient is [...] right superficial femoral artery. 6. Use of [place] IVUS-guided reentry catheter. 7. 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 METHODS: Procedure was explained to the patient with risks and benefits. He signed informed consent. 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 The left groin area was prepped and draped in usual fashion. Using ultrasound guidance and micropuncture technique, the left common femoral artery was accessed. The inner cannula was advanced. Limited left femoral angiography was performed followed by upsizing to a 6-Cameroonian x 11 cm sheath. Next, a 5-Cameroonian Uni-Flush catheter was advanced and placed in the distal abdominal aorta. An angled Glidewire was then used to cross the aortoiliac bifurcation and the catheter was advanced to the level of the right common femoral artery and then over a Magic Torque wire, this was exchanged along with the access sheath to a 6-Cameroonian x 55 cm Renaldo sheath. Right lower [...] At that time, we advanced an angled Prosper catheter through the antegrade sheath over a straight Glidewire and we crossed subintimally proximally and advanced to the proximal to mid segment of the SFA. We advanced a airplane woodworker 5 x 40 mm balloon and used that balloon to perform reverse CART technique with multiple inflations using that balloon as well as an NC [employer] [place] 3.0 x 15 mm noncompliant balloon advanced through the retrograde wire for CART technique. Repeated multiple inflations and multiple attempts were performed at multiple levels. However, we were not able to join the 2 subintimal spaces and therefore, we abandoned this technique. We decided to go with the [place] reentry catheter from the antegrade access. This was then advanced to the subintimal space in the mid SFA over a [place] wire and using the standard technique, we identified under intravascular ultrasound the true lumen and once this was positioned in the 12 o'clock position, the needle was advanced the appropriate amount and after 2 attempts, the [place] wire was able to advance into the true lumen. This was confirmed as the wire came in parallel with the retrograde wire. However, at this point, while trying to remove the [place] catheter, the [place] wire got kinked and entangled, and we were not able to retrieve the [place] catheter over the wire and we had to remove the both wire and [place] catheter assembly together and therefore, lost access into the true lumen. We repeated this process again and we are able to advance the [place] catheter into position and multiple attempts at this point were made to gain access into the true lumen, however, those failed and we had to retrieve the [place] catheter and terminate the procedure at this time. The [place] catheter and the Renaldo sheath were removed [...] He will be admitted for overnight observation. WAX BALL MOLDER: Shahzad Caballero MD. TOTAL FLUORO TIME: 101.28 [...] Anderson M.D. Date Trans: 05/06/2020 05:57 A/noreen [id number] cc: Pool Garcia M.D. [address] [facility] [address] Normal [facility] APTTon 04-17-2020 aPTT Coag (Bld) [Time] 27.5 s Normal 25.0-35.0 Th e [facility] Comment on above: Order Comment: This order is a replacement of the rejected order with accession [id number]. Result Comment: ALL RESULTS MUST BE INTERPRETED [...] PURPOSE. Performed By: #### 6 [id number] #### [facility] [address] [place] [address], [facility] BASIC METABOLIC PANELon 03-25 Calcium [Mass/Vol] 8.4 mg/dL Low 8.6-10.3 [facility] Comment on above: Order Comment: No: D o not add to previous draw Performed By: #### 6 [id number] #### [facility] [address] [place] [address], [place] Chloride [Moles/Vol] 98 mmol/L Normal 98-107 [facility] Comment on above: Order Comment: No: D o not add to previous draw Performed By: #### 6 [id number] #### [facility] [address] [place] [address], [place] CO2 [Moles/Vol] 25 mmol/L Normal 21-31 [facility] Comment on above: Order Comment: No: D o not add to previous draw Performed By: #### 6 [id number] #### [facility] [address] [place] [address], [place] Creatinine [Mass/Vol] 1.26 mg/dL Normal 0.70-1.30 [facility] Comment on above: Order Comment: No: D o not add to previous draw Performed By: #### 6 [id number] #### [facility] [address] [place] [address], [place] GFR/1.73 sq M predicted among blacks MDRD (S/P/Bld) [Vol rate/Area] mL/min/{1.73_m2} Normal >60 [facility] Comment on above: Order Comment: No: D o not add to previous draw Result Comment: Calc ulation may not be valid for patients over 70 years Performed By: #### 6 2586 #### [facility] [address] [place] [address], [place] GFR/1.73 sq M predicted among non-blacks MDRD (S/P/Bld) [Vol rate/Area] 56 ml/min/1.73sq m Abnormal >60 [facility] Comment on above: Order Comment: No: D o not add to previous draw Result Comment: Calc ulation may not be valid for patients over 70 years Performed By: #### 6 2586 #### [facility] [address] [place] [address], [place] Glucose [Mass/Vol] 123 mg/dL High 70-100 [facility] Comment on above: Order Comment: No: D o not add to previous draw Performed By: #### 6 2586 #### [facility] [address] [place] [address], [facility] Potassium [Moles/Vol] 3.6 mmol/L Normal 3.5-5.1 [facility] Comment on above: Order Comment: No: D o not add to previous draw Performed By: #### 6 2586 #### [facility] [address] [place] [address], [facility] Sodium [Moles/Vol] 129 mmol/L Low 136-145 [facility] Comment on above: Order Comment: No: D o not add to previous draw Performed By: #### 6 2586 #### [facility] [address] [place] [address], [facility] Urea nitrogen [Mass/Vol] 14 mg/dL Normal 7-25 [facility] Comment on above: Order Comment: No: D o not add to previous draw Performed By: #### 6 2586 #### [facility] [address] [place] [address], [facility] CBC COMPLETE BLOOD COUNTon 0 - Erythrocyte distribution width (RBC) [Ratio] 14.2 % Normal 11.5-15.0 The [facility] Comment on above: Order Comment: No: D o not add to previous draw Performed By: #### 6 2586 #### [facility] [address] [place] [address], [facility] Hematocrit (Bld) [Volume fraction] 32.2 % Low 39.0-50.0 The [facility] Comment on above: Order Comment: No: D o not add to previous draw Performed By: #### 6 2586 #### [facility] [address] [place] [address], [facility] Hemoglobin (Bld) [Mass/Vol] 10.8 g/dL Low 13.0-17.0 [facility] Comment on above: Order Comment: No: D o not add to previous draw Performed By: #### 6 2586 #### [facility] [address] [place] [address], [facility] MCH (RBC) [Entitic mass] 32.7 pg Normal 27.0-33.0 The [facility] Comment on above: Order Comment: No: D o not add to previous draw Performed By: #### 6 2586 #### [facility] [address] [place] [id number], [facility] MCHC (RBC) [Mass/Vol] 33.5 g/dL Normal 32.0-35.0 [facility] Comment on above: Order Comment: No: D o not add to previous draw Performed By: #### 6 2586 #### [facility] [address] [facility] [place] [address], [facility] MCV (RBC) [Entitic vol] 97.6 fL Normal 82.0-98.0 T he [facility] Comment on above: Order Comment: No: D o not add to previous draw Performed By: #### 6 2586 #### [facility] [address] [facility] [place] [address], [facility] Nucleated RBC/100 WBC (Bld) [Ratio] 0 % Normal 0-0 [facility] Comment on above: Order Comment: No: D o not add to previous draw Performed By: #### 6 2586 #### [facility] [address] [facility] [place] [address], [facility] PLAT CNT 217 10*3/uL Normal 150-400 The [facility] Comment on above: Order Comment: No: D o not add to previous draw Performed By: #### 6 2586 #### [facility] [address] [facility] [place] [address], [facility] RBC (Bld) [#/Vol] 3.30 10*6/uL Low 4.20-5.70 [facility] Comment on above: Order Comment: No: D o not add to previous draw Performed By: #### 6 2586 #### [address] WBC (Bld) [#/Vol] 7.83 10*3/uL Normal 4.00-10.60 The [facility] Comment on above: Order Comment: No: D o not add to previous draw Performed By: #### 6 2586 #### [address] ABDOMEN AND PELVIS WO CON TRASTon 04-17-2020 CT ABDOMEN AND PELVIS WO CONTRAST [facility] Department of Radiology [address] [place] [address] [id number] Patient Name: HUY OSEI : 1950 Sex: M Age: Race: White Pt. Location: [address] [place] [address] Patient Status: O Ordered Date: 04/17/2020 12:55:00 [...] reports Electronically signed: Eliud Mcguire. Transcribed by: [email or web address], User Resident: ALEXYS NELSON Electronically Signed by: ELIUD MCGUIRE @ 04/17/2020 02:34 AM I personally read this/these film(s) with this resident Normal [facility] Comment on above: Order Comment: Hemat alyssa, s/p cardiac cath, now hypotensive, r/o retroperitoneal bleed. Cardiovascular Lab Reporton 04-17-2020 Cardiovascular Lab Report [place] Patient Name: Huy Osei [facility] MR #: [id number] Physician: Aron Daniel of [facility] Medicine Service Date: 04/16/2020 Division of Birthdate: 1950 Cardiology Room #: 3AB [id number] Adult Cardiovascular Services [facility] [address] [facility]. [place] [address] Cardiovascular Laboratory Report INDICATION: Huy Osei is [...] signed informed consent. 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 The left groin area was prepped and draped in usual fashion. Using micropuncture technique and ultrasound guidance, the left common femoral artery was accessed. The inner cannula was advanced, limited femoral angiography was performed followed by upsizing to a 5-Cameroonian x 11 cm sheath. Left lower extremity angiography was performed down to the level of the foot. A 5-Cameroonian UniFlush catheter was advanced and placed in [...] rest of the procedure. An exchange length Socogameic Torque wire was advanced through the UniFlush catheter and used to exchange the catheter and access sheath to a 6-Cameroonian Renaldo sheath. Using an angled Glidewire mounted [...] retracted and removed and exchanged to a 6-Cameroonian x 11 cm sheath. The patient tolerated [...] Anderson M.D. Date Trans: 04/17/2020 06:23 A/noreen [id number] Normal [facility] LACTATE BLOODon 04-17-2020 Lactate [Moles/Vol] 0.9 mmol/L Normal 0.5-2.2 [facility] Comment on above: Order Comment: No: D o not add to previous draw Performed By: #### 6 2586 #### [facility] [address] [facility]. [address] PERFUSION BLOOD PANELon 03-25 BASE EXCESS 0.0 mmol/L Normal -2.0-3.0 The [facility] Comment on above: Performed By: #### 3 5338 #### [facility] [address] [facility] [place] [address], [facility] Glucose [Mass/Vol] 118 mg/dL High 70-105 [facility] Comment on above: Performed By: #### 3 0738 #### [facility] [address] [facility] [place] [address], [place] Hematocrit (Bld) [Volume fraction] 36 % Low 38-51 [facility] Comment on above: Performed By: #### 3 0738 #### [facility] [address] [place] [address], [facility] Hemoglobin (Bld) [Mass/Vol] 12.2 g/dL Normal 12.0-17.0 The [facility] Comment on above: Performed By: #### 3 0738 #### [facility] [address] [place] [address], [facility] IONIZED CALCIUM 1.23 mmol/L Normal 1.12-1.32 [facility] Comment on above: Performed By: #### 3 0738 #### [facility] [address] [place] [address], [facility] Oxygen (Bld) [Partial pressure] 31.0 mm[Hg] Normal [facility] Comment on above: Performed By: #### 3 0738 #### [facility] [address] [place] [address], [facility] PCO2 42.2 mmHg Normal 41.0-51.0 [facility] Comment on above: Performed By: #### 3 0738 #### [facility] [address] [place] [address], [facility] pH (Bld) 7.38 [pH] Normal 7.31-7.41 [facility] Comment on above: Performed By: #### 3 0738 #### [facility] [address] [place] [address], [place] Potassium [Moles/Vol] 3.9 mmol/L Normal 3.5-4.9 [facility] Comment on above: Performed By: #### 3 0738 #### [facility] [address] [place] [address], [place] Sodium [Moles/Vol] 132 mmol/L Low 138-146 The [facility] Comment on above: Performed By: #### 3 0738 #### [facility] [address] POC GLUCOSE LABon 04-17-2020 Glucose [Mass/Vol] 126 mg/dL High 70-100 [facility] Comment on above: Performed By: #### 8 5499 #### [facility] [address] [facility] [place] [address], [facility] PROTHROMBIN TIMEon 0 INR Coag (PPP) [Relative time] 1.02 {INR} Normal 0.91-1.16 [facility] Comment on above: Order Comment: This order is a replacement of the rejected order with accession [id number] PATIENT NOT IN ROOM; WENT TO CT. [...] 1995;108:231S-246S. Performed By: #### 6 2586 #### [facility] [address] [facility] [place] [address], [facility] PT Coag (PPP) [Time] 13.4 s Normal 12.3-14.8 [facility] Comment on above: Order Comment: This order is a replacement of the rejected order with accession [id number] PATIENT NOT IN ROOM; WENT TO CT. Result Comment: ALL RESULTS MUST BE INTERPRETED WITH RESPECT TO BLOOD DRAWING ARTIFACT OR DILUTION ERROR OF ANTICOAGULANT AT THE TIME OF SAMPLING. Performed By: #### 6 6 #### [facility] [address] [facility]. [address] TROPONIN-Ion 04-17-2020 Troponin I.cardiac [Mass/Vol] 0.01 ng/mL Normal 0.00-0.04 The [facility] Comment on above: Order Comment: No: D o not add to previous draw Result Comment: REFE RENCE RANGES: 0.00 - 0.04 ng/ml NORMAL 0.05 - 0.50 ng/ml INDETERMINATE > 0.50 ng/ml CONSISTENT WITH AN M.I. Performed By: #### 6 2585 #### [facility] [address] TYPE AND SCREENon 04-17-2020 ABO INTERPRETATION A Normal [facility] Comment on above: Performed By: #### 0 2024 #### [facility] [address] RH INTERPRETATION Positive Normal [facility] Comment on above: Performed By: #### 0 2024 #### [facility] [address] [facility]. [address] C REACTIVE PROTEINon 020 CRP [Mass/Vol] 13.5 mg/L High 0.0-7.0 [facility] Comment on above: Performed By: #### 0 2024 #### [facility] [address] [facility] [place] [address], [facility] CBC W/DIFFon 12-12-2019 ABS BASOPHILS 0.1 10*3/uL Normal 0.0-0.2 [facility] Comment on above: Performed By: #### 5 0103, 01790 #### [facility] [address] [place] [address], [facility] ABS IMM GRANS 0.1 10*3/uL Normal 0.0-0.2 [facility] Comment on above: Performed By: #### 5 102, 69024 #### [facility] [address] [place] [address], [facility] ABS NEUTROPHILS 4.3 10*3/uL Normal 1.6-7.6 [facility] Comment on above: Performed By: #### 5 102, 10253 #### [facility] [address] [place] [address], [facility] Basophils/100 WBC (Bld) 0.8 % Normal 0.0-1.0 T [facility] Comment on above: Performed By: #### 5 102, 45245 #### [facility] [address] [place] [address], [facility] Eosinophils (Bld) [#/Vol] 0.3 10*3/uL Normal 0.0-0.5 [facility] Comment on above: Performed By: #### 5 102, 70053 #### [facility] [address] [place] [address], [facility] Eosinophils/100 WBC (Bld) 4.6 % Normal 0.0-6.0 [facility] Comment on above: Performed By: #### 5 102, 52280 #### [facility] [address] [place] [address], [facility] Erythrocyte distribution width (RBC) [Ratio] 14.0 % Normal 11.5-15.0 [facility] Comment on above: Performed By: #### 5 102, 34579 #### [facility] [address] [place] [address], [facility] Hematocrit (Bld) [Volume fraction] 36.9 % Low 39.0-50.0 The [facility] Comment on above: Performed By: #### 5 102, 75499 #### [facility] [address] [place] [address], [facility] Hemoglobin (Bld) [Mass/Vol] 12.2 g/dL Low 13.0-17.0 The [facility] Comment on above: Performed By: #### 5 102, 39941 #### [facility] [address] IMMATURE GRANS 0.9 % Normal 0.0-1.0 The [facility] Comment on above: Performed By: #### 5 102, 33192 #### [facility] [address] Lymphocytes (Bld) [#/Vol] 1.0 10*3/uL Low 1.2-4.0 The [facility] Comment on above: Performed By: #### 5 102, 79271 #### [facility] [address] Lymphocytes/100 WBC (Bld) 15.5 % Low 20.0-45.0 The [facility] Comment on above: Performed By: #### 102, 89495 #### [facility] [address] MCH (RBC) [Entitic mass] 30.9 pg Normal 27.0-33.0 [facility] Comment on above: Performed By: #### 102, 63970 #### [facility] [address] MCHC (RBC) [Mass/Vol] 33.1 g/dL Normal 32.0-35.0 [facility] Comment on above: Performed By: #### 102, 60843 #### [facility] [address] [place] [address], [facility] MCV (RBC) [Entitic vol] 93.4 fL Normal 82.0-98.0 T he [facility] Comment on above: Performed By: #### 102, 72466 #### [facility] [address] [place] [address], [facility] Monocytes (Bld) [#/Vol] 0.7 10*3/uL Normal 0.1-1.0 The [facility] Comment on above: Performed By: #### 5 102, 11144 #### [facility] [address] [place] [address], [facility] MONOS 10.3 % Normal 5.0-12.0 The [facility] Comment on above: Performed By: #### 5 102, 41392 #### [facility] [address] [facility] [place] [address], [facility] Neutrophils/100 WBC (Bld) 67.9 % Normal 40.0-72.0 The [facility] Comment on above: Performed By: #### 5 102, 73174 #### [facility] [address] [facility] [place] [address], [facility] Nucleated RBC/100 WBC (Bld) [Ratio] 0 % Normal 0-0 The [facility] Comment on above: Performed By: #### 5 102, 04450 #### [facility] [address] [facility] [place] [address], [facility] PLAT CNT 215 10*3/uL Normal 150-400 The [facility] Comment on above: Performed By: #### 5 102, 58288 #### [facility] [address] [facility] [place] [address], [facility] RBC (Bld) [#/Vol] 3.95 10*6/uL Low 4.20-5.70 [facility] Comment on above: Performed By: #### 5 102, 94999 #### [facility] [address] [facility] [place] [address], [facility] WBC (Bld) [#/Vol] 6.33 10*3/uL Normal 4.00-10.60 [facility] Comment on above: Performed By: #### 5 102, 46585 #### [facility] [address] [facility]. [address] SEDIMENTATION RATEon 020 SED RATE 30 mm/hr High 0-10 The [facility] Comment on above: Performed By: #### 0 2024 #### [facility] [address] Operative Reporton 0 Operative Report MR#: [id number] [facility] Pt. Name: Huy Osei Room #: 0C [...] edges using a scalpel followed by a [place] and curette. We debrided down to the [...] Waddell MD Date Trans: 11/26/2019 11:48 P/noreen [id number] Normal The [facility] APTTon 11-26-2019 aPTT Coag (Bld) [Time] 29.8 s Normal 25.0-35.0 Th e [facility] Comment on above: Result Comment: [...] PURPOSE. Performed By: #### 0 2024 #### [facility] [address] [facility]. [address] POC GLUCOSE LABon 11-26-2019 Glucose [Mass/Vol] 100 mg/dL Normal 70-100 The [facility] Comment on above: Performed By: #### 8 6002 #### [facility] [address] [facility]. [address] PROTHROMBIN TIMEon 0 INR Coag (PPP) [Relative time] 0.99 {INR} Normal 0.91-1.16 The [facility] Comment on above: Result Comment: [...] 1995;108:231S-246S. Performed By: #### 0 2024 #### [facility] [address] [place] [address], [facility] PT Coag (PPP) [Time] 13.1 s Normal 12.3-14.8 The [facility] Comment on above: Result Comment: ALL RESULTS MUST BE INTERPRETED WITH RESPECT TO BLOOD DRAWING ARTIFACT OR DILUTION ERROR OF ANTICOAGULANT AT THE TIME OF SAMPLING. Performed By: #### 0 2024 #### [facility] [address] [place] [address], [facility] VANCOMYCIN TROUGHon 11-12-19 20 VANCOMYCIN TROU 9.0 mcg/mL Normal 5.0-20.0 The [facility] Comment on above: Performed By: #### 0 2024 #### [facility] [address] [place] [address], [facility] BASIC METABOLIC PANELon 10-24 Calcium [Mass/Vol] 9.1 mg/dL Normal 8.6-10.3 The [facility] Comment on above: Order Comment: Yes: Add to Previous draw if able Performed By: #### 0 2024 #### [facility] [address] [place] [address], [facility] Chloride [Moles/Vol] 100 mmol/L Normal 98-107 The [facility] Comment on above: Order Comment: Yes: Add to Previous draw if able Performed By: #### 0 2024 #### [facility] [address] [place] [address], [facility] CO2 [Moles/Vol] 26 mmol/L Normal 21-31 The [facility] Comment on above: Order Comment: Yes: Add to Previous draw if able Performed By: #### 0 2024 #### [facility] [address] [place] [address], [facility] Creatinine [Mass/Vol] 1.22 mg/dL Normal 0.70-1.30 The [facility] Comment on above: Order Comment: Yes: Add to Previous draw if able Performed By: #### 0 2024 #### [facility] [address] [place] [address], [facility] GFR/1.73 sq M predicted among blacks MDRD (S/P/Bld) [Vol rate/Area] mL/min/{1.73_m2} Normal >60 The [facility] Comment on above: Order Comment: Yes: Add to Previous draw if able Result Comment: Calc ulation may not be valid for patients over 70 years Performed By: #### 0 2024 #### [facility] [address] [place] [address], [facility] GFR/1.73 sq M predicted among non-blacks MDRD (S/P/Bld) [Vol rate/Area] 59 ml/min/1.73sq m Abnormal >60 The [facility] Comment on above: Order Comment: Yes: Add to Previous draw if able Result Comment: Calc ulation may not be valid for patients over 70 years Performed By: #### 0 2024 #### [facility] [address] [place] [address], [place] Glucose [Mass/Vol] 97 mg/dL Normal 70-100 The [facility] Comment on above: Order Comment: Yes: Add to Previous draw if able Performed By: #### 0 2024 #### [facility] [address] [place] [address], [place] Potassium [Moles/Vol] 4.0 mmol/L Normal 3.5-5.1 The [facility] Comment on above: Order Comment: Yes: Add to Previous draw if able Performed By: #### 0 2024 #### [facility] [address] [place] [address], [place] Sodium [Moles/Vol] 132 mmol/L Low 136-145 The [facility] Comment on above: Order Comment: Yes: Add to Previous draw if able Performed By: #### 0 2024 #### [facility] [address] [place] [address], [place] Urea nitrogen [Mass/Vol] 17 mg/dL Normal 7-25 The [facility] Comment on above: Order Comment: Yes: Add to Previous draw if able Performed By: #### 0 2024 #### [facility] [address] [place] [address], [place] CBC COMPLETE BLOOD COUNTon - Erythrocyte distribution width (RBC) [Ratio] 14.2 % Normal 11.5-15.0 The [facility] Comment on above: Order Comment: Yes: Add to Previous draw if able Performed By: #### 6 2586 #### [facility] [address] [place] [address], [facility] Hematocrit (Bld) [Volume fraction] 32.5 % Low 39.0-50.0 The [facility] Comment on above: Order Comment: Yes: Add to Previous draw if able Performed By: #### 6 2586 #### [facility] [address] [place] [address], [facility] Hemoglobin (Bld) [Mass/Vol] 10.4 g/dL Low 13.0-17.0 The [facility] Comment on above: Order Comment: Yes: Add to Previous draw if able Performed By: #### 6 [id number] #### [facility] [address] [place] [address], [facility] MCH (RBC) [Entitic mass] 31.7 pg Normal 27.0-33.0 The [facility] Comment on above: Order Comment: Yes: Add to Previous draw if able Performed By: #### 6 [id number] #### [facility] [address] [place] [address], [facility] MCHC (RBC) [Mass/Vol] 32.0 g/dL Normal 32.0-35.0 The [facility] Comment on above: Order Comment: Yes: Add to Previous draw if able Performed By: #### 6 2586 #### [facility] [address] [place] [address], [facility] MCV (RBC) [Entitic vol] 99.1 fL High 82.0-98.0 T [facility] Comment on above: Order Comment: Yes: Add to Previous draw if able Performed By: #### 6 2586 #### [facility] [address] [place] [address], [place] Nucleated RBC/100 WBC (Bld) [Ratio] 0 % Normal 0-0 The [facility] Comment on above: Order Comment: Yes: Add to Previous draw if able Performed By: #### 6 2586 #### [facility] [address] [place] [address], [facility] PLAT CNT 231 10*3/uL Normal 150-400 The [facility] Comment on above: Order Comment: Yes: Add to Previous draw if able Performed By: #### 6 2586 #### [facility] [address] [place] [address], [facility] RBC (Bld) [#/Vol] 3.28 10*6/uL Low 4.20-5.70 The [facility] Comment on above: Order Comment: Yes: Add to Previous draw if able Performed By: #### 6 2586 #### [facility] [address] [place] [address], [facility] WBC (Bld) [#/Vol] 8.34 10*3/uL Normal 4.00-10.60 The [facility] Comment on above: Order Comment: Yes: Add to Previous draw if able Performed By: #### 6 [id number] #### [facility] [address] [facility]. [address] Operative Reporton 0 Operative Report MR#: [id number] I [facility] Pt. Name: Huy Osei Room #: [id number] Discharge Date: Birthdate: 1950 OPERATIVE REPORT DATE OF SURGERY: 11/10/2019 SURGEON: Andrews Collier M.D. DRUG COUNSELOR: Jose Charles MD PREOPERATIVE DIAGNOSIS: Right knee [...] Charles MD Date Trans: 11/11/2019 09:49 A/noreen [id number] cc: Andrews Collier M.D. [address] [facility] [place] [address] Normal [facility] *ANAEROBIC CULTUREon 020 *ANAEROBIC CULTURE Clinical Report: (D) Specimen/Source: TISSUE/INTRAOP SPEC Collected: 11/10/2019 08:50 Status: Final Last Updated: 11/15/2019 07:46 (1) #3 R. KNEE SYNOVIUM #2 CULT RES (Final) No Anaerobes Isolated 5 Days Normal The [facility] Comment on above: Order Comment: #3 R. KNEE SYNOVIUM #2 Performed By: #### 8 [id number] #### [facility] [address] *ANAEROBIC CULTURE Clinical Report: (D) Specimen/Source: TISSUE/INTRAOP SPEC Collected: 11/10/2019 08:44 Status: Final Last Updated: 11/15/2019 07:46 (1) #2 R. KNEE SYNOVIUM #1 CULT RES (Final) No Anaerobes Isolated 5 Days Normal The [facility] Comment on above: Order Comment: #2 R. KNEE SYNOVIUM #1 Performed By: #### 3 [id number] #### [facility] [address] *ANAEROBIC CULTURE Clinical Report: (D) Specimen/Source: SWAB/INTRAOP SPEC Collected: 11/10/2019 08:43 Status: Final Last Updated: 11/15/2019 07:46 (1) #1 R. KNEE SYNOVIAL FLUID ON SWAB CULT RES (Final) No Anaerobes Isolated 5 Days Normal The [facility] Comment on above: Order Comment: #1 R. KNEE SYNOVIAL FLUID ON SWAB Performed By: #### 8 [id number] #### [facility] [address] *BODY FLUID CULTUREon 2019 *BODY FLUID CULTURE Clinical Report: (D) Specimen/Source: FLUID/INTRAOP SPEC Collected: 11/10/2019 08:43 Status: Final Last Updated: 11/15/2019 10:58 (1) #1 R. KNEE SYNOVIAL FLUID ON SWAB GRAM (Final) Rare Polys No Bacteria Seen CULT RES (Final) No Growth Day 5 Normal The [facility] Comment on above: Order Comment: #1 R. KNEE SYNOVIAL FLUID ON SWAB Performed By: #### 8 [id number] #### [facility] [address] *TISSUE CULTUREon 11-10-2019 *TISSUE CULTURE Clinical Report: (D) Specimen/Source: TISSUE/INTRAOP SPEC Collected: 11/10/2019 08:50 Status: Final Last Updated: 11/15/2019 10:59 (1) #3 R. KNEE SYNOVIUM #2 GRAM (Final) Rare Polys No Bacteria Seen CULT RES (Final) No Growth Day 5 Normal The [facility] Comment on above: Order Comment: #3 R. KNEE SYNOVIUM #2 Performed By: #### 8 [id number] #### [facility] [address] *TISSUE CULTURE Clinical Report: (D) Specimen/Source: TISSUE/INTRAOP SPEC Collected: 11/10/2019 08:44 Status: Final Last Updated: 11/15/2019 10:58 (1) #2 R. KNEE SYNOVIUM #1 GRAM (Final) Rare Polys No Bacteria Seen CULT RES (Final) No Growth Day 5 Normal The [facility] Comment on above: Order Comment: #2 R. KNEE SYNOVIUM #1 Performed By: #### 8 [id number] #### [facility] [address] [place], [place] [id number] [place] [address] POC GLUCOSE LABon 11-10-2019 Glucose [Mass/Vol] 100 mg/dL Normal 70-100 The [facility] Comment on above: Performed By: #### 8 [id number] #### [facility] [address] [facility] [place] [address], [facility] TYPE AND SCREENon 11-10-2019 ABO INTERPRETATION A Normal The [facility] Comment on above: Performed By: #### 6 0556 #### [facility] [address] [place] [address], [facility] RH INTERPRETATION Positive Normal The [facility] Comment on above: Performed By: #### 6 2586 #### [facility] [address] [facility] [place] [address], [facility] *MRSA/MSSA DNA NASALon 11-09 *MRSA/MSSA DNA NASAL Clinical Report: (D ) Specimen: NASAL SWAB Collected: 11/09/2019 19:00 Status: Final Last Updated: 11/10/2019 13:15 MSSA DNA (Final) Negative MRSA DNA (Final) Methicillin Resistant Staphylococcus aureus DNA Detected Normal The [facility] Comment on above: Performed By: #### 8 [id number] #### [facility] [address] [facility] [place] [address], [facility] APTTon 11-09-2019 aPTT Coag (Bld) [Time] 29.3 s Normal 25.0-35.0 Th e [facility] Comment on above: Result Comment: [...] PURPOSE. Performed By: #### 6 2586 #### [facility] [address] [facility] [place] [address], [facility] BASIC METABOLIC PANELon 10-24 Calcium [Mass/Vol] 9.0 mg/dL Normal 8.6-10.3 The [facility] Comment on above: Performed By: #### 0 0071 #### [facility] [address] [place] [address], [facility] Chloride [Moles/Vol] 94 mmol/L Low 98-107 The [facility] Comment on above: Performed By: #### 0 0071 #### [facility] [address] [place] [address], [facility] CO2 [Moles/Vol] 26 mmol/L Normal 21-31 The [facility] Comment on above: Performed By: #### 0 0071 #### [facility] [address] [place] [address], [facility] Creatinine [Mass/Vol] 1.40 mg/dL High 0.70-1.30 The [facility] Comment on above: Performed By: #### 0 0071 #### [facility] [address] [place] [address], [place] GFR/1.73 sq M predicted among blacks MDRD (S/P/Bld) [Vol rate/Area] 60 ml/min/1.73sq m Abnormal >60 The [facility] Comment on above: Result Comment: Calc ulation may not be valid for patients over 70 years Performed By: #### 0 0071 #### [facility] [address] [place] [address], [facility] GFR/1.73 sq M predicted among non-blacks MDRD (S/P/Bld) [Vol rate/Area] 50 ml/min/1.73sq m Abnormal >60 The [facility] Comment on above: Result Comment: Calc ulation may not be valid for patients over 70 years Performed By: #### 0 0071 #### [facility] [address] [place] [address], [place] Glucose [Mass/Vol] 106 mg/dL High 70-100 The [facility] Comment on above: Performed By: #### 0 0071 #### [facility] [address] [place] [address], [place] Potassium [Moles/Vol] 3.9 mmol/L Normal 3.5-5.1 The [facility] Comment on above: Performed By: #### 0 0071 #### [facility] [address] [place] [address], [place] Sodium [Moles/Vol] 128 mmol/L Low 136-145 The [facility] Comment on above: Performed By: #### 0 0071 #### [facility] [address] [place] [address], [place] Urea nitrogen [Mass/Vol] 18 mg/dL Normal 7-25 The [facility] Comment on above: Performed By: #### 0 0071 #### [facility] [address] [facility]. [address] CBC W/DIFFon 11-09-2019 ABS BASOPHILS 0.0 10*3/uL Normal 0.0-0.2 The [facility] Comment on above: Performed By: #### 6 2586 #### [facility] [address] [facility] [place] [address], [facility] ABS IMM GRANS 0.1 10*3/uL Normal 0.0-0.2 The [facility] Comment on above: Performed By: #### 6 2586 #### [facility] [address] [facility]. [address] ABS NEUTROPHILS 4.9 10*3/uL Normal 1.6-7.6 The [facility] Comment on above: Performed By: #### 6 2586 #### [facility] [address] [facility] [place] [address], [facility] Basophils/100 WBC (Bld) 0.3 % Normal 0.0-1.0 T esau [facility] Comment on above: Performed By: #### 6 2586 #### [facility] [address] [facility] [place] [address], [facility] Eosinophils (Bld) [#/Vol] 0.1 10*3/uL Normal 0.0-0.5 The [facility] Comment on above: Performed By: #### 6 2586 #### [facility] [address] [facility] [place] [address], [facility] Eosinophils/100 WBC (Bld) 0.8 % Normal 0.0-6.0 The [facility] Comment on above: Performed By: #### 6 2586 #### [facility] [address] [facility]. [address] Erythrocyte distribution width (RBC) [Ratio] 14.0 % Normal 11.5-15.0 The [facility] Comment on above: Performed By: #### 6 2586 #### [facility] [address] [facility] [place] [address], [facility] Hematocrit (Bld) [Volume fraction] 35.1 % Low 39.0-50.0 The [facility] Comment on above: Performed By: #### 6 2586 #### [facility] [address] [facility] [place] [address], [facility] Hemoglobin (Bld) [Mass/Vol] 11.6 g/dL Low 13.0-17.0 The [facility] Comment on above: Performed By: #### 6 2586 #### [facility] [address] [facility] [place] [address], [facility] IMMATURE GRANS 0.9 % Normal 0.0-1.0 The [facility] Comment on above: Performed By: #### 6 2586 #### [facility] [address] [facility] [place] [address], [facility] Lymphocytes (Bld) [#/Vol] 0.7 10*3/uL Low 1.2-4.0 The [facility] Comment on above: Performed By: #### 6 2586 #### [facility] [address] [facility] [place] [address], [facility] Lymphocytes/100 WBC (Bld) 11.2 % Low 20.0-45.0 The [facility] Comment on above: Performed By: #### 6 2586 #### [facility] [address] [facility] [address], [facility] MCH (RBC) [Entitic mass] 31.4 pg Normal 27.0-33.0 The [facility] Comment on above: Performed By: #### 6 2586 #### [facility] [address] [place] [id number], [facility] MCHC (RBC) [Mass/Vol] 33.0 g/dL Normal 32.0-35.0 The [facility] Comment on above: Performed By: #### 6 2586 #### [facility] [address] [place] [address], [facility] MCV (RBC) [Entitic vol] 95.1 fL Normal 82.0-98.0 T he [facility] Comment on above: Performed By: #### 6 2586 #### [facility] [address] [facility] [place] [address], [facility] Monocytes (Bld) [#/Vol] 0.8 10*3/uL Normal 0.1-1.0 The [facility] Comment on above: Performed By: #### 6 2586 #### [facility] [address] [facility] [place] [address], [facility] MONOS 12.4 % High 5.0-12.0 The [facility] Comment on above: Performed By: #### 6 2586 #### [facility] [address] [facility] [place] [address], [facility] Neutrophils/100 WBC (Bld) 74.4 % High 40.0-72.0 The [facility] Comment on above: Performed By: #### 6 2586 #### [facility] [address] [facility] [place] [address], [facility] Nucleated RBC/100 WBC (Bld) [Ratio] 0 % Normal 0-0 The [facility] Comment on above: Performed By: #### 6 2586 #### [facility] [address] [facility] [place] [address], [facility] PLAT CNT 233 10*3/uL Normal 150-400 The [facility] Comment on above: Performed By: #### 6 2586 #### [facility] [address] [place] [address], [facility] RBC (Bld) [#/Vol] 3.69 10*6/uL Low 4.20-5.70 The [facility] Comment on above: Performed By: #### 6 2586 #### [facility] [address] [facility] [place] [address], [facility] WBC (Bld) [#/Vol] 6.54 10*3/uL Normal 4.00-10.60 The [facility] Comment on above: Performed By: #### 6 2586 #### [facility] [address] [facility] [place] [address], [facility] KNEE RIGHT 3 VWSon 0 KNEE RIGHT 3 VWS [facility] Department of Radiology [address] [place] [id number] Patient Name: HUY OSEI : 1950 Sex: [...] reports Electronically signed: Galen Kruse. Transcribed by: [email or web address], User Resident: TONYA COPE Electronically Signed by: GALEN KRUSE @ 11/10/2019 09:54 AM I personally read this/these film(s) with this resident Normal The [facility] Comment on above: Order Comment: , Vie ws (X-RAY, KNEE): Radiologic Protocol , Weight Bearing?: Y , Views (X-RAY, KNEE): Radiologic Protocol , Weight Bearing?: Y , , , Ordering Provider - ANDREWS COLLIER MD , PROTHROMBIN TIMEon 0 INR Coag (PPP) [Relative time] 0.99 {INR} Normal 0.91-1.16 The [facility] Comment on above: Result Comment: [...] 1995;108:231S-246S. Performed By: #### 6 2586 #### [facility] [address] PT Coag (PPP) [Time] 13.1 s Normal 12.3-14.8 [facility] Comment on above: Result Comment: ALL RESULTS MUST BE INTERPRETED WITH RESPECT TO BLOOD DRAWING ARTIFACT OR DILUTION ERROR OF ANTICOAGULANT AT THE TIME OF SAMPLING. Performed By: #### 6 2586 #### [facility] [address] [facility] [place] [address], [facility] RBC'S 2 UNITSon 11-09-2019 CROSSMATCH INTERP 1 COMP Normal [facility] Comment on above: Performed By: #### 8 [id number] #### [facility] [address] [place] [address], [facility] CROSSMATCH INTERP 2 COMP Normal The [facility] Comment on above: Performed By: #### 8 6002 #### [facility] [address] [facility]. [address] PRODUCT CODE 1 E0336 Normal [facility] Comment on above: Performed By: #### 8 [id number] #### [facility] [address] [place] [address], [facility] PRODUCT CODE 2 E0336 Normal The [facility] Comment on above: Performed By: #### 8 6002 #### [facility] [address] [place] [address], [place] PRODUCT STATUS 1 RE Normal The [facility] Comment on above: Result Comment: Resu lt changed by IF on 11/14/2019 06:36. The previous value was XM. Performed By: #### 8 [id number] #### [facility] [address] [place] [address], [facility] PRODUCT STATUS 2 RE Normal The [facility] Comment on above: Result Comment: Resu lt changed by IF on 11/14/2019 06:36. The previous value was XM. Performed By: #### 8 [id number] #### [facility] [address] [place] [address], [place] UNIT ABO 1 A Normal The [facility] Comment on above: Performed By: #### 8 6002 #### [facility] [address] [place] [address], [place] UNIT ABO 2 A Normal The [facility] Comment on above: Performed By: #### 8 6002 #### [facility] [address] [place] [address], [place] UNIT ID 1 [id number] Normal The [facility] Comment on above: Performed By: #### 8 [id number] #### [facility] [address] [place] [address], [place] UNIT ID 2 [id number] Normal The [facility] Comment on above: Performed By: #### 8 6002 #### [facility] [address] [place] [address], [place] UNIT RH 1 Positive Normal The [facility] Comment on above: Performed By: #### 8 6002 #### [facility] [address] [place] [address], [facility] UNIT RH 2 Positive Normal The [facility] Comment on above: Performed By: #### 8 [id number] #### [facility] [address] [place] [address], [facility] Vital Signs Date Time Vital Sign Value Performing Clinician Facility 02-13-2025 09:44-0400 Body height 177.8 cm Pool Garcia MD Work Phone: [facility] 02-13-2025 09:44-0400 Body mass index (BMI) [Ratio] 30.42 kg/m2 Pool Garcia MD Work Phone: [facility] 02-13-2025 09:44-0400 Body temperature 97.3 [degF] Pool Garcia MD Work Phone: [facility] 02-13-2025 09:44-0400 Body weight 96.16 kg Pool Garcia MD Work Phone: [facility] 02-13-2025 09:44-0400 Diastolic blood pressure 66 mm[Hg] Pool Garcia MD Work Phone: [facility] 02-13-2025 09:44-0400 Heart rate 77 /min Pool Garcia MD Work Phone: [facility] 02-13-2025 09:44-0400 Respiratory rate 20 /min Pool Garcia MD Work Phone: [facility] 02-13-2025 09:44-0400 SaO2% (BldA) [Mass fraction] 97 % Pool Garcia MD Work Phone: [facility] 02-13-2025 09:44-0400 Systolic blood pressure 128 mm[Hg] Pool Garcia MD Work Phone: [facility] 02-02-2025 10:42-0400 Body height 177.8 cm [facility] 02-02-2025 10:42-0400 Body mass index (BMI) [Ratio] 30.3 kg/m2 [facility] 02-02-2025 10:42-0400 Body temperature 98 [degF] [facility] 02-02-2025 10:42-0400 Body weight 95.93 kg [facility] 02-02-2025 10:42-0400 Diastolic blood pressure 62 mm[Hg] [facility] 02-02-2025 10:42-0400 Heart rate 73 /min [facility] 02-02-2025 10:42-0400 Respiratory rate 16 /min [facility] 02-02-2025 10:42-0400 SaO2% (BldA) [Mass fraction] 96 % [facility] 02-02-2025 10:42-0400 Systolic blood pressure 138 mm[Hg] [facility] 09-04-2024 09:32-0500 Body height 177.8 cm [facility] 09-04-2024 09:32-0500 Body mass index (BMI) [Ratio] 30.8 kg/m2 [facility] 09-04-2024 09:32-0500 Body temperature 98.2 [degF] [facility] 09-04-2024 09:32-0500 Body weight 97.52 kg [facility] 09-04-2024 09:32-0500 Diastolic blood pressure 65 mm[Hg] [facility] 09-04-2024 09:32-0500 Heart rate 73 /min [facility] 09-04-2024 09:32-0500 Respiratory rate 18 /min [facility] 09-04-2024 09:32-0500 SaO2% (BldA) [Mass fraction] 97 % [facility] 09-04-2024 09:32-0500 Systolic blood pressure 129 mm[Hg] [facility] 08-15-2024 11:08-0400 Body height 177.8 cm Pool Garcia MD Work Phone: [facility] 08-15-2024 11:08-0400 Body mass index (BMI) [Ratio] 30.28 kg/m2 Pool Garcia MD Work Phone: [facility] [employer] 08-15-2024 11:08-0400 Body temperature 97.5 [degF] Pool Garcia MD Work Phone: [facility] 08-15-2024 11:08-0400 Body weight 95.71 kg Pool Garcia MD Work Phone: [facility] 08-15-2024 11:08-0400 Diastolic blood pressure 54 mm[Hg] Pool Garcia MD Work Phone: [facility] 08-15-2024 11:08-0400 Heart rate 70 /min Pool Garcia MD Work Phone: [facility] 08-15-2024 11:08-0400 Respiratory rate 18 /min Pool Garcia MD Work Phone: [facility] 08-15-2024 11:08-0400 SaO2% (BldA) [Mass fraction] 96 % Pool Garcia MD Work Phone: [facility] 08-15-2024 11:08-0400 Systolic blood pressure 110 mm[Hg] Pool Garcia MD Work Phone: [facility] 05-24-2023 10:25-0400 Body height 176.53 cm Katiana Kemp Other [employer] Other 05-24-2023 10:25-0400 Body mass index (BMI) [Ratio] 31.2 kg/m2 Katiana Kemp Other [employer] Other 05-24-2023 10:25-0400 Body weight 97.25 kg Katiana Kemp Other [employer] Other 05-24-2023 10:25-0400 Diastolic blood pressure 65 mm[Hg] Katiana Kemp Other [employer] Other 05-24-2023 10:25-0400 Respiratory rate 18 /min Katiana Kemp Other [employer] Other 05-24-2023 10:25-0400 SaO2% (BldA) [Mass fraction] 100 % Katiana Kemp Other [employer] Other 05-24-2023 10:25-0400 Systolic blood pressure 142 mm[Hg] Katiana Kemp Other [employer] Other Encounters Encounter Date Encounter Type Care Provider Facility Start: 03-25-2025 End: 03-25-2025 ambulatory [facility] Start: 03-25-2025 End: 03-25-2025 Encounter for other preprocedural examination [facility] Start: 03-08-2025 End: 03-08-2025 Clinisync Result Encounter [...] External Department Unsolicited Start: 02-13-2025 End: 02-13-2025 Mandy Garcia MD Work Phone: [facility] Start: 02-13-2025 End: 02-13-2025 Mandy Garcia MD Work Phone: [facility] [...] GARCIA Not Available Start: 02-02-2025 End: 02-02-[address] [facility] Work Phone: Start: 02-02-2025 End: 02-02-2025 Patient encounter procedure [facility] Work Phone: Start: [...] External Department Unsolicited Start: 09-04-2024 End: 09-04-[address] [facility] Work Phone: Start: 09-04-2024 End: 09-04-2024 Patient encounter procedure [facility] Work Phone: Start: 08-15-2024 End: 08-15-2024 Bamboo flowsheet Pool Garcia MD Work Phone: [facility] Start: 08-15-2024 End: 08-15-2024 Bamboo flowsheet Pool Garcia MD Work Phone: [facility] Start: 08-15-2024 End: 08-15-2024 Clinisync Result Encounter Pool Garcia MD Work Phone: [facility] External Department Unsolicited Start: 08-15-2024 End: 08-15-2024 Patient encounter procedure Pool Garcia MD Work Phone: [facility] Healthcare Start: 08-15-2024 End: 08-15-2024 Postop follow up visit related to original px Pool Garcia MD Work Phone: [facility] Comment on above: Encounter for [...] Start: 07-13-2024 End: 07-13-2024 ambulatory HOLLY HUGHES [facility] Start: 03-12-2024 End: 03-13-2024 Emergency department [facility] Start: 05-24-2023 End: 05-24-2023 ambulatory Katiana Kemp Other [employer] Other Start: 05-24-2023 Office outpatient ne w 20 minutes Katiana Kemp [facility] Start: 2023 End: 01-28-2023 ambulatory NARENDRANATH LAKSHMIPATHY Facility:[facility]1 Start: 01-13-2023 End: 01-14-2023 ambulatory [...] Facility: Start: 03-11-2022 End: 03-11-[address] [facility] . Facility: Start: 03-03-2022 Encounter for preprocedural cardiovascular examination [facility] Start: 03-03-2022 Encounter for preprocedural laboratory examination [facility] Start: 03-01-2022 End: 03-02-[address] [facility] . Facility: Start: 03-01-2022 End: 03-02-2022 Encounter for preprocedural cardiovascular examination [facility] . Facility: Start: 02-24-2022 End: 02-25-[address] BRADY MORRIS Facility: Start: 08-21-2020 End: 08-22-2020 Patient encounter procedure PROVIDER UNKNOWN Facility:[facility] Start: 05-05-2020 End: 05-06-2020 Patient encounter procedure PROVIDER UNKNOWN Facility:[facility] Start: 04-16-2020 End: 04-17-2020 Patient encounter procedure PROVIDER UNKNOWN Facility:[facility] Start: 11-26-2019 End: 11-27-2019 Patient encounter procedure [place] Facility:[facility] Start: 11-09-2019 End: 11-13-2019 Evaluation and management of inpatient [place] Facility:[facility] Procedures Date Procedure [...] Performed By: #### T SH, BMP #### [facility] [address] [place] [address] Dr. Marilin Rothman Start: 04-17-2020 Antibody screen Comment on above: Performed By: #### 0 2024 #### [facility] [address] [place] [address], [facility] Start: 11-26-2019 Anes integ extremiti es ant trunk & perineum nos YA MATAKEN Start: 11-26-2019 LATE CLOSURE OF WOUND N ABIL EBRAHEIM Start: 11-10-2019 EXCISION OF RIGHT KN EE JOINT, OPEN APPROACH ANDREWS EBRAHEIM Start: 11-10-2019 Antibody screen Comment on above: Performed By: #### 6 6 #### [facility] [address] [place] [address], [facility] Plan of Treatment Date Care Activity Detail Author Start: 08-27-2025 End: 08-27-2025 Patient encounter procedure 08/27/2025 11:00 AM EST Office Visit [facility] [address] [place] [address] Pool Garcia MD [address] [place] [phone] [facility] Start: 08-15-2025 Medicare Annual Wellness (AWV) Medicare Annual Wellness (AWV) [facility] Start: 02-13-2025 End: 02-13-2026 Basic metabolic 1998 panel - Serum or Plasma Basic metabolic panel Lab Routine Essential hypertension, benign (CMS/HCC) Expected: 02/13/2025 (Approximate), Expires: 02/13/2026 [facility] Healthcare Work Phone: Comment on above: Expected: 02/13/2025 (Approximate), Expires: 02/13/2026 Start: 02-13-2025 End: 02-13-2026 CBC W Auto Differential panel - Blood CBC and differential Lab Routine Encounter for long-term (current) use of medications Expected: 02/13/2025 (Approximate), Expires: 02/13/2026 [facility] Comment on above: Expected: 02/13/2025 (Approximate), Expires: 02/13/2026 Start: 02-13-2025 End: 02-13-2026 Hepatic function 2000 panel - Serum or Plasma Hepatic function panel Lab Routine Encounter for long-term (current) use of medications Expected: 02/13/2025 (Approximate), Expires: 02/13/2026 [facility] Comment on above: Expected: 02/13/2025 (Approximate), Expires: 02/13/2026 Start: 02-13-2025 End: 02-13-2025 Patient encounter procedure [facility] Comment on above: Arrived Start: 08-15-2024 End: 08-15-2025 Basic metabolic 1998 panel - Serum or Plasma Basic metabolic panel Lab Routine Essential hypertension, benign (CMS/HCC) Expected: 08/15/2024 (Approximate), Expires: 08/15/2025 [facility] Healthcare Work Phone: Comment on above: Expected: 08/15/2024 (Approximate), Expires: 08/15/2025 Start: 08-15-2024 End: 08-15-2025 CBC W Auto Differential panel - Blood CBC and differential Lab Routine Encounter for long-term (current) use of medications Expected: 08/15/2024 (Approximate), Expires: 08/15/2025 [facility] Comment on above: Expected: 08/15/2024 (Approximate), Expires: 08/15/2025 Start: 08-15-2024 End: 08-15-2025 Hepatic function 2000 panel - Serum or Plasma Hepatic function panel Lab Routine Encounter for long-term (current) use of medications Expected: 08/15/2024 (Approximate), Expires: 08/15/2025 [facility] Comment on above: Expected: 08/15/2024 (Approximate), Expires: 08/15/2025 Start: 08-15-2024 End: 08-15-2025 Lipid 1996 panel - Serum or Plasma Lipid panel Lab Routine Dyslipidemia (CMS/HCC) Expected: 08/15/2024 (Approximate), Expires: 08/15/2025 [facility] Comment on above: Expected: 08/15/2024 (Approximate), Expires: 08/15/2025 Start: 08-15-2024 End: 08-15-2025 Prostate specific Ag [Mass/volume] in Serum or Plasma PSA Lab Routine Screening PSA (prostate specific antigen) Expected: 08/15/2024 (Approximate), Expires: 08/15/2025 [facility] Comment on above: Expected: 08/15/2024 (Approximate), Expires: 08/15/2025 Start: 08-15-2024 End: 08-15-2025 Thyrotropin [Units/volume] in Serum or Plasma TSH Lab Routine Class 1 obesity due to excess calories with serious comorbidity and body mass index (BMI) of 30.0 to 30.9 in adult Expected: 08/15/2024 (Approximate), Expires: 08/15/2025 [facility] Comment on above: Expected: 08/15/2024 (Approximate), Expires: 08/15/2025 Start: 08-15-2024 End: 08-15-2024 Patient encounter procedure 08/15/2024 11:30 AM EDT Office Visit [facility] MARTINE[facility] [address] [place] [phone] Pool Garcia MD [address] [place] [phone] Arrived [facility] MART[facility] Comment on above: Arrived Start: 06-24-2024 Influenza vaccination Influenza Vacc ine (#1) [facility] Start: 05-05-2021 Pneumococcal Vaccine : 65+ Years (2 of 2 - PCV) Pneumococcal Vaccine: 65+ Years (2 of 2 - PCV) [facility] Start: 1950 Medicare Annual Wellness (AWV) Medicare Annual Wellness (AWV) [facility] Immunizations Immunization Date Immunization Notes Care Provider Fa cili 08-15-2024 influenza, seasonal, injectable, preservative free Pool Garcia MD Work Phone: [facility] 09-15-2021 influenza virus vacc ine, unspecified formulation Pool Garcia MD Work Phone: [facility] Payers Date Payer Category Payer Medicare (Managed Care) [facility] [id number] 2009 Unknown [id number] 1959 Medicare [id number] 1959 Medicare [id number] 1948 Unknown [id number] 2.840.1.442493.3.579.2. 647 1948 Unknown [id number] 2.0.1.342036.3.579.2. 1948 Unknown [id number] 2.16840.1.361640.3.579.2. 647 1948 Unknown [id number] 2.840.1.148558.3.579.2. 647 1948 Unknown [id number] 2.16.840.1.954274.3.579.2. 647 1948 Unknown [id number] 2.16.840.1.137104.3.579.2. 593 1948 Unknown [id number] 2.16.840.1.846364.3.579.2. 593 1948 Unknown [id number] 2.16.840.1.683560.3.579.2. 593 1948 Unknown [id number] 2.16.840.1.063477.3.579.2. 593 1948 Unknown [id number] 2.16.840.1.828547.3.579.2. 593 1948 Unknown [id number] 2.16.840.1.636053.3.579.2. 593 1948 Unknown [id number] 2.16.840.1.692016.3.579.2. 593 1948 Unknown [id number] 2.16.840.1.889446.3.579.2. 593 1948 Unknown [id number] 2.16.840.1.836517.3.579.2. 593 1948 Unknown [id number] 2.16.840.1.080336.3.579.2. 593 1948 Unknown [id number] 2.16.840.1.790463.3.579.2. 593 1948 Unknown [id number] 2.16.840.1.614372.3.579.2. 175 1948 Unknown [id number] 2.16.840.1.416765.3.579.2. 1259 1948 Unknown [id number] 2.16.840.1.957963.3.579.2. 1259 Medicare [id number] Social History Date Type Detail Facility Start: 02-08-2024 End: 08-15-2024 Sex Assigned At [facility] Tobacco smoking stat us KYIS Tobacco smoking consumption unknown [facility] Start: 02-08-2024 End: 08-15-2024 History of Social function [facility] Do you belong to any clubs or organizations such as congregation groups, unions, fraternal or athletic groups, or [...] Start: 08-15-2024 End: 02-02-2025 Tobacco smoking status KYIS Ex-smoker [facility] History of tobacco use Current smoker [facility] History of tobacco use Cigarette Smoker [facility] Start: 08-15-2024 Tobacco use and exposure Smokeless tobacco non-user [facility] Start: 09-04-2024 End: 02-02-2025 Sex Male (finding) [facility] Start: 1950 Sex Assigned At Male [facility] Clinical Notes 10-26-2022 to 03-25-2025 Pool Garcia MD - 02/13/2025 10:32 AM Edwin Garcia MD - 02/13/2025 10:32 AM Edwin Gacria MD - 02/13/2025 10:31 AM Edwin Garcia MD - 02/13/2025 10:31 AM EDT Note Date & Type Note Facility 03-25-2025 Note [facility] Subjective Huy Osei is a 75 y.o. year old male patient being seen for surgery clearance. Patient states he is having left eye surgery. Patient state he has no cardiac complaints at this time. Patient Active Problem List Diagnosis Bilateral hearing loss Coronary arteriosclerosis Deviated septum Dysfunction of both eustachian tubes History of surgical procedure Knee pyogenic arthritis (CMS/HCC) Hypertensive disorder Peripheral vascular disease Mixed hyperlipidemia Abnormal CT of the abdomen Allergic rhinitis due to pollen BPH without urinary obstruction Cholelithiasis without cholecystitis Chronic kidney disease (CKD), stage III (moderate) (CMS/HCC) Chronic obstructive pulmonary disease (COPD) (CMS/HCC) DDD (degenerative disc disease), lumbar Dyslipidemia Encounter for long-term (current) use of medications Essential hypertension, benign Fatigue Obesity Obstructive sleep apnea Osteoarthritis of right knee Retinal detachment Encounter for Medicare annual wellness exam Vitamin D deficiency Family History Problem Relation Name Age of Onset Cancer Mother Cancer Brother Diabetes Paternal Grandmother Social History Tobacco Use Smoking status: Former Types: Cigarettes Smokeless tobacco: Never Substance Use Topics Alcohol use: Yes Comment: 12 pack per week Drug use: Never HPI Huy is seen in follow-up on CAD, PAD and hypertension and hyperlipidemia. He is a 75-year-old man with history of coronary artery disease [...] He reports that he has been doing well with no chest pain. He has no shortness of breath on exertion. He has mild right leg swelling (has injured the ankle previously). No claudication. He has good exercise tolerance. His blood pressure is elevated today but he says usually it is well controlled. Review of Systems HENT: Positive for tinnitus. Cardiovascular: Positive for leg swelling. Musculoskeletal: Positive for arthritis, back pain, joint pain and myalgias. All other systems reviewed and are negative. Objective Visit Vitals BP 143/71 (BP Location: Left arm, Patient Position: Sitting) Pulse 74 Ht 1.778 m (5' 10 ) Wt 96.6 kg (213 lb) SpO2 97% BMI 30.56 kg/m??? Smoking Status Former BSA 2.18 m??? Physical Exam Constitutional: Appearance: He is [...] General: No swelling. Cervical back: Neck supple. Right lower le+ Edema present. Skin: General: Skin is warm and dry. Neurological: General: No focal deficit present. Mental Status: He is alert and oriented to person, place, and time. Psychiatric: Mood and Affect: Mood normal. Behavior: Behavior is cooperative. Judgment: Judgment normal. Allergies Allergies Allergen Reactions Penicillins Anaphylaxis, Angioedema, Hives, Itching and Rash Morphine Nausea And Vomiting Medications Current Outpatient Medications: amLODIPine (Norvasc) 10 mg tablet, TAKE 1 TABLET BY MOUTH EVERY DAY IN THE MORNING, Disp: 90 tablet, Rfl: 3 atorvastatin (Lipitor) 80 mg tablet, Take 1 tablet (80 mg) by mouth in the morning., Disp: 90 tablet, Rfl: 3 cholecalciferol (D3-5) 5,000 Units tablet, Take 5,000 Units by mouth 3 (three) times a week., Disp: , Rfl: clopidogrel (Plavix) 75 mg tablet, TAKE 1 TABLET (75 MG) BY MOUTH IN THE MORNING, Disp: 90 tablet, Rfl: 3 coenzyme Q-10 200 mg capsule, Take 200 mg by mouth in the morning., Disp: , Rfl: gabapentin (Neurontin) 300 mg capsule, Take 300 mg by mouth twi (more content not included)... [facility] 02-13-2025 History of Present illness Narrative Associated Problem(s): PAD (peripheral artery disease) (CMS/HCC) Continue medication. Associated Problem(s): Essential hypertension, benign (CMS/HCC) BP controlled and monitor PRN. Associated Problem(s): DDD (degenerative disc disease), lumbar Pain worse after using walking boot. Treat with prednisone. Refer back to pain management. Associated Problem(s): Chronic obstructive pulmonary disease (COPD) (CMS/HCC) Breathing [...] metabolic panel Chronic obstructive pulmonary disease (COPD) ([facility]) Breathing stable and continue inhalers. Follow with pulmonology. Chronic kidney disease (CKD), stage III (moderate) (HCC) ([facility]) DDD (degenerative disc disease), lumbar Pain worse after using walking boot. Treat with prednisone. Refer back to pain management. Relevant Medications predniSONE (Deltasone) 50 MG tablet Other Relevant Orders Ambulatory referral to Pain Medicine PAD (peripheral artery disease) ([facility]) Continue medication. Fatigue Encounter for long-term (current) use of medications Relevant Orders CBC and differential Hepatic function panel documented in this encounter [facility] 08-15-2024 History of Present illness [...] free IM (Completed) documented in this encounter [facility] 07-13-2024 Note Reviewed ABIs with p atient and they are normal no concerns for significant arterial stenosis Continue Lipitor, and regular exercise [facility] 07-13-2024 Note Lipid abnormalities are unchanged. Follow-up with PCP for annual blood testing Continue atorvastatin 80 mg daily and reviewed his lipid profile is well-controlled and liver function was normal Pharmacotherapy as ordered. Lipids will be reassessed in 1 year. [facility] 07-13-2024 Note Hypertension is unch anged. Continue Norvasc, losartan and Toprol Continue current treatment regimen. Continue current medications. Blood pressure will be reassessed at the next regular appointment. [facility] 07-13-2024 Note Coronary artery dise ase is unchanged. Remained stable no concerning symptoms Continue Plavix, Toprol and Lipitor Currently cholesterol levels are well-controlled and liver functions normal Continue current treatment regimen. Regular aerobic exercise. Continue current medications. Cardiac status will be reassessed in 1 year. [facility] 07-13-2024 Note [facility] CARDIOLOGY PROGR ESS NOTE [...] DAY IN THE MORNING 90 tablet 3 kcwgxntnqkc-svauizjox-wgjrpzjw 100-62.5-25 mcg blister with device Inhale 1 [...] 122. Imaging a (more content not included)... [facility] 07-13-2024 Note Pt here for six cecelia h follow up. Pt denies chest pain, sob, palpatations. Review of Systems HENT: Positive for tinnitus. Cardiovascular: Positive for dyspnea on exertion. Musculoskeletal: Positive for arthritis, back pain, joint pain and myalgias. All other systems reviewed and are negative. [facility] 05-24-2023 Evaluation note Encounter Date Diagnosis Assessment [...] fever. Patient verbalized understanding of treatment plan. [employer] Other 04-06-2023 NoteCONSULTATION CONSULTATION DATE: 2023 TO: [...] our patients to inform us about any [id number]-kse-zyduvrl medications or herbal remedies/nutritional supplements/alternative remedies. 2. [...] treatment options with their primary care provider.[id number] Note CONSULTATION CONSULTATION DATE: 12/07/2022 CHIEF COMPLAINT: [...] Education was done. CC: Pool Garcia M.D.[id number] NoteCONSULTATION CONSULTATION DATE: 11/02/2022 PREOPERATIVE DIAGNOSIS: Left [...] will be followed up in the office.[id number] NoteCONSULTATION CONSULTATION DATE: 10/26/2022 CHIEF COMPLAINT: Low [...] ordered by Dr. Garcia. CC: Pool [facility] M.D.[facility] Diagnosis Encounter for Medicare [...] vascular disease, unspecified documented in this encounter [facility] HealthcareEvaluation noteNo assessment information availableUniversity [facility] Work Phone: Evaluation note* Diagnosis Onset Date Resolution Status Admit Date Right fibular fracture noneactive Ap 2024 10:24am Blind left eye noneactive January 10:24am [facility] Work Phone: Evaluation note* Diagnosis Encounter for [...] discogenic back pain PAD (peripheral artery disease) (CMS/HCC) Unspecified peripheral vascular disease Stage 3b chronic kidney disease (HCC) (CMS/HCC) Encounter for long-term (current) use of medications Encounter for long-term (current) use of other medications documented in this encounter [facility] N[facility] - Reported* Type Description Date Medical History HTN Medical History hyperlipidemia Medical History PAD Medical History SOB Surgical History right knee arthroscopy Surgical History cataract removal [employer] Other Summary Purpose Family History No Family History Records Found Relationship Condition Age at Onset Recorded Date/T irving father Unknown mother Unknown Advance Directives No Advanced Directives Records Found Advance Directive Response Recorded Date/ Time Advance Directives No September 7:42am Advance Directive Response Recorded Date/ Time Advance Directives No September 8:42am Hospital Course Note MR#: [id number] [facility] Pt. Name: Huy Osei Admitted: 11/09/2019 Discharged: [...] and content) DATE CREATED AUTHOR 09/21/2020 [facility] DATE CREATED AUTHOR AUTHOR'S ORGANIZ ATION 02/06/2023 [facility] DATE CREATED AUTHOR AUTHOR'S ORGANIZ ATION 03/17/2024 [facility] DATE CREATED AUTHOR AUTHOR'S ORGANIZ ATION 02/14/2025 [facility] EPIC DATE CREATED AUTHOR AUTHOR'S ORGANIZ ATION 03/25/2025 [facility] REASON FOR VISIT (unrecogniz ed section and content) Reason Comments Medicare Annual Wellness Visit Wellness Reason Comments Follow-up 6m Hip Pain Care Teams (unrecognized sec tion and content) [employer] Relationship Specialty Start Date End Date Pool Garcia MD [address] [place] [phone] PCP - [facility] 11/24/23 02/21/68 Pool Garcia MD [address] [place] [phone] PCP - General Family Medicine 08/15/24 [employer] Relationship Specialty Start Date End Date Pool Garcia MD [address] [place] [phone] PCP - [facility] 11/24/23 02/21/68 Pool Garcia MD [address] [place] [phone] PCP - General Family Medicine 08/15/24 [employer] Relationship Specialty Start Date End Date Pool Garcia MD [address] [place] [phone] PCP - [facility] 11/24/23 02/21/68 Pool Garcia MD [address] [place] [phone] PCP - General Family Medicine 08/15/24 Team Status: Active Member Role Status Dates Pool Garcia MD Primary Care Provider Active Team Status: Inactive Member Role Status Dates Pool Garcia MD Primary Care Provider Active S tart: September 04, 2024 End: September 04, 2024 Katiana Kemp APRN Attending Provider Active Start: September 04, 2024 End: September 04, 2024 [employer] Relationship Specialty Start Date End Date Pool Garcia MD [address] [place] [phone] [facility] 11/24/23 02/21/68 Pool Garcia MD [address] [place] [phone] PCP - [facility] Family Medicine 08/15/24 Team Status: Inactive Member Role Status Dates Pool Garcia MD Primary Care Provider Active S tart: February 02, 2025 End: February 02, 2025 Katiana Kemp APRN Attending Provider Active Start: February 02, 2025 End: February 02, 2025 [employer] Relationship Specialty Start Date End Date Pool Garcia MD [address] [place] [phone] [facility] 11/24/23 02/21/68 Pool Garcia MD [address] [place] [phone] PCP [facility] 08/15/24 [employer] Relationship Specialty Start Date End Date Pool Garcia MD [address] [place] [phone] [facility] 11/24/23 02/21/68 Pool Garcia MD [address] [place] [phone] [facility] 08/15/24 [employer] Relationship Specialty Start Date End Date Pool Garcia MD [address] [place] [phone] [facility] 11/24/23 02/21/68 Pool Garcia MD [address] [place] [phone] [facility] 08/15/24 [employer] Relationship Specialty Start Date End Date Pool Garcia MD [address] [place] [phone] [facility] 11/24/23 02/21/68 oPol Garcia MD [address] [place] [phone] [facility] 08/15/24 Goals (unrecognized section and content) Goals [...] BE BASED ON THE PRIMARY CLINICAL RECORDS. [facility] [employer] [facility]. provides no warranty or guarantee of the accuracy or completeness of information in this document.
--- NOTE | 2025-05-02 10:00 | PM.CN ---
Consult Note: HPI Data of Consult Patient: known to practice within the last 3 years Requesting Physician: Paty Durán MD Primary Care Provider: Pool Peace MD Consult Narrative Reason for consult: back and BLE pain Narrative: Mike Osei a pleasant 75 year old male returns for evaluation of low back and BLE pain. Pt noticing moderate to severe pain in low back and RLE with pain in left foot as well, increasing over the last 3 months. Pt has a hx of lumbar radiculopathy and lumbar DDD, pt has been engaged in provider guided HEP> 6 weeks without benefit, has failed tylenol, motrin, heat, and ice. Pain today 6/10 aching burning increasing to 8/10 with standing, walking, lifting, twisting, pushing, pulling. Pain improves with sitting and lying. Recently underwent lumbar MRI with results below. Since last visit underwent right L3/4 L4/5 TFESI with 80% improvement for 3 days and minimal relief at this time and right SIJ injection with minimal relief while anesthetized and 25-30% improvement at this time. pain 6/10 dull darius in low back with intermittent LE pain. cc:: CC: Paty Durán MD Review of Systems ROS Status of ROS 10 or more systems reviewed and unremarkable except as noted in history and below PFSH PFSH Social History Little interest or pleasure in doing things: not at all Feeling down, depressed, or hopeless: not at all Meds Home Medications and Allergies Home Medications ?Medication ?Instructions ?Recorded ?Confirmed ?Type ascorbic acid (vitamin C) 500 mg mg PO 06/17/23 History capsule atorvastatin 80 mg tablet 80 mg PO DAILY 06/17/23 04/22/25 History cholecalciferol (vitamin D3) 125 5,000 unit PO DAILY 06/17/23 04/22/25 History mcg (5,000 unit) capsule clopidogrel 75 mg tablet 75 mg PO DAILY 06/17/23 04/22/25 History fluticasone fur. 200 mcg-umeclid 1 inh inhalation DAILY 06/17/23 04/22/25 History 62.5 mcg-vilant 25 mcg inhalat.powder (Trelegy Ellipta) hydrochlorothiazide 25 mg tablet 25 mg PO DAILY 06/17/23 04/22/25 History losartan 100 mg tablet 100 mg PO DAILY 06/17/23 04/22/25 History metoprolol succinate 25 mg 25 mg PO DAILY 06/17/23 04/22/25 History tablet,extended release 24 hr multivitamin 1 tab PO DAILY 06/17/23 04/22/25 History omega 8-qwo-thw-fish oil 60 mg-90 1 cap PO DAILY 06/17/23 04/22/25 History mg-500 mg capsule (Fish Oil) magnesium 250 mg tablet 250 mg PO DAILY 02/21/25 04/22/25 History zinc 50 mg tablet 50 mg PO DAILY 02/21/25 04/22/25 History Allergies Allergy/AdvReac Type Severity Reaction Status Date / Time Penicillins Allergy Severe Swelling Verified 04/22/25 07:44 of Lip/Tongue/Throat morphine AdvReac Severe Vomiting Verified 04/22/25 07:44 Exam Constitutional Documenting provider has reviewed patient's vital signs: yes Common normals: no apparent distress, oriented x3, healthy appearing, alert and well nourished General appearance: cooperative HENMT Common normals: normocephalic, hearing grossly normal bilaterally and moist oral mucous membranes Head and scalp: normocephalic Eye Common normals: PERRL Pupil: PERRL Neck & C-Spine Common normals: full ROM General: normal visual inspection Chest Common normals: inspection of chest normal Respiratory Common normals: normal respiratory effort, no retractions and no use of accessory muscles Back & Pelvis Lumbar spine/lower back: pain with ROM, lumbar spinal tenderness Lumbar spinal tenderness location: L2, L3 and L4 and straight leg raise negative bilaterally; ROM not limited Sacroiliac joints: SI joints normal Other: negtative right pastor(patricks), gaenslens, thigh thrust, compression test strength 5/5 in BLE sensation intact BLE Neuro Common normals: oriented x3 Sensorium/orientation: alert Gait (neuro): antalgic Motor exam: strength abnormal Psych Common normals: mental status grossly normal, thought process normal, cooperative, affect normal, speech normal and activity/motor behavior normal Speech: normal speech Thought process: normal thought process Results Imaging Lumbar MRI : Attestation: I have reviewed the pertinent imaging results. Radiologist's impression: FINDINGS: There is 2 mm of anterolisthesis of L4 upon L5 secondary to facet hypertrophy.. There is preservation of vertebral body heights. There is disc desiccation with mild disc height loss at L2-3, L3-L4, L4-5, and L5-S1. Mild Schmorl's node formation is noted in the endplates at T12, L1, and L2. The marrow signal is within normal limits. The conus terminates at the L1-L2 intervertebral disc level. No epidural or paraspinous fluid collection is appreciated. Simple cysts are noted in the renal cortices. Degenerative changes are noted in the sacroiliac joints. At T12-L1: There is a normal disc, central canal, and neural foramen. At L1-L2: There is a broad-based disc bulge with facet hypertrophy. There is mild to moderate spinal canal stenosis. There is mild bilateral neural foraminal stenosis. At L2-L3: There is a circumferential disc bulge with facet hypertrophy and ligamentum flavum thickening. There is a focal central disc extrusion with mild caudal migration. There is moderate to severe spinal canal narrowing. There is mild right and moderate left neural foraminal narrowing. At L3-L4: There is a broad-based disc bulge with endplate osteophyte formation right greater than left. There is facet hypertrophy. There is moderate spinal canal stenosis with mild left and moderate to severe right neural foraminal narrowing. Is mild mass effect on the exiting right L3 nerve roots. At L4-L5: There is 2 mm of anterolisthesis of L4 upon L5. There is a circumferential disc bulge with facet hypertrophy and ligamentum flavum thickening. There is severe spinal canal stenosis with moderate right neural foraminal narrowing. At L5-S1: There is a broad-based disc bulge with facet hypertrophy and endplate osteophyte formation. There is mild left and moderate right neural foraminal narrowing with mild spinal canal narrowing. Additional Findings Additional findings: If on a controlled substance or opioids, I have checked an [place]AR[place] report on this patient and there are no aberrancies noted in the prescribing history.??If on a controlled substance or opioid a drug screen was completed and reviewed within the last year, and if there has not been a drug screen completed we ordered one today to monitor higher risk, state monitored pain medication use. As part of providing excellent, safe, comprehensive care, the following was completed at our patient's visit: 1. A medication reconciliation and review to ensure accurate knowledge of current/active medications, including asking our patients to inform us about any fttu-wrw-zpawocm medications or herbal remedies/nutritional supplements/alternative remedies. 2. A review to specifically ensure our patients have had annual screening for screening for depression, screening for tobacco use, and screening for unhealthy alcohol use. For concerning screenings had a discussion with the patient, provided patient education, and recommended follow-up with primary care provider when appropriate. If patient noted with a risk of falling, they received education on strength, gait, and balance training to prevent future risk of falling. Portions of this note may have been carried over from the previous visit and updated as appropriate. Please note this office utilizes paper charting in addition to the electronic medical record. A list of current medications, vitals, and PMH is available there as the clinical staff outside of myself do not have access to [employer] charting during the clinic day operations. As part of providing quality comprehensive care the current medications, vitals, and PMH were reviewed in the paper chart. Assessment and Plan Assessment and Plan (1) Sacroiliitis: Assessment and Plan: significant improvement on physical exam (2) Lumbar stenosis with neurogenic claudication: Assessment and Plan: KAYLIN 32% with moderate to severe pain impacting ADLs, standing, walking, lifting, social life, and travel (3) Lumbar spondylosis: (4) Myalgia, other site: Plan 75 year old male with chronic moderate to severe low back and RLE pain unresponsive to > 6 weeks of PT/Provider guided HEP, heat, ice, tylenol, and NSAIDs. increase gabapentin 600mg BID, risks vs benefits reviewed, has not regularly taken. continue baclofen 10mg TID PRN pain/spasms. upcoming NS consult. f/u after NS consult
== END 2025-05-02 09:35 | disposition home or self-care (01) ==
LOC: PM 09:34
PROVIDERS: PCP Family Medicine; Visit Provider Anesthesiology
DX: M46.1 Sacroiliitis, not elsewhere classified (principal); M48.062 Spinal stenosis, lumbar region with neurogenic claudication; M47.816 Spondylosis without myelopathy or radiculopathy, lumbar region; M79.18 Myalgia, other site
CPT/HCPCS: G0463

== ENCOUNTER 2025-05-27 08:28 | Day surgery (SDC) | payer MEDICARE, SELFPAY ==
--- OUTSIDE RECORDS SUMMARY | 2024-09-12 07:00 | XMS_ITS ---
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 I am not an insurance consultant, but I suggested he may want to [...] quit 2017 LDCT scheduled for 09/25/2024. 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 I am not an insurance consultant, but I suggested he may want to [...] of tobacco abuse LDCT scheduled for 09/25/2024. custodial (current) use of i nhaled steroids Patient was counseled to rinse & gargle with water after inhaled corticosteroid use. Obesity, unspecified Patient's weight is inducing a restrictive pulmonary physiology. Weight loss indicated: Decrease calories, increase activity. Next Appt Details Follow Up: 1 Year, Reason: A sthma Procedure Notes * Category Sub-Category Detail Notes PFT Data: 09/16/2017-FEV1/ FVC: 72%-FEV1: 91%-FVC: 86%-No bronchodilator response-RV: 139%-T%-DLCO: 85%11/29/2019-FEV1/FVC: 77%-FEV1: 90%-FVC: 105%-Bronchodilator response: None-RV: 137%-T%-DLCO: 65% Progress Notes * Mike OSEI LDOB:1950 (74 yo M)Acc No.[id number]:09/12/2024 Follow Up Patient: Mike LAUREN Provider: Agustin Preston DO :1950 A ge:74 Y S ex:Male Date:09/12/2024 Address:[address] [place], [place] [address]EN [facility] Pcp:Pool Peace MD Check In:10:52 AM ESTCheck [...] scheduled for his LDCT on 09/25/2024 at [facility]. Patient is under the care of [facility] Cardiology. * ROS: G eneral/Constitutional: [...] d enies. * Active Problem List Z79.51 custodial (current) use of 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s Modified On:09/05/2023/U Status:confirmed R91.8 Multiple pulmonary n odules Modified On:09/05/2023/U Status:confirmed Z87.891 History of tobacco a buse Modified On:09/20/2023/U Status:confirmed J82.83 Eosinophilic asthma Modified On:11/02/2023/U Status:confirmed E66.9 Obesity, unspecified Modified On:09/05/2023/U Status:confirmed J45.901 Unspecified asthma w ith (acute) exacerbation Modified On:11/15/2023/U Status:confirmed Z68.31 Body mass index [BMI ] 31.0-31.9, adult Modified On:09/12/2024/U Status:confirmed * Medical History: * Surgical History: [...] iscellaneous: O ccupation 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 D rugs/Alcohol: D rugs [...] Tablet Extended Release 24 Hour Oral Trelegy Ellipta(Bncwziomehh-Hjgakzfrk-Nlrmcl) 200-62.5-25 MCG/ACT Aerosol Powder Breath Activated 1 [...] Extended Release 24 Hour Oral Taking Trelegy Ellipta(Vwihtoxtfik-Eoczusrpt-Upyfdv) 200-62.5-25 MCG/ACT Aerosol Powder Breath Activated 1 [...] >>> Pulmicort/Yupelri/Brovana = Breztri > Trelegy 100, Stiloto, Duaklir 2 . M ultiple pulmonary nodules - [...] Education on smoking effects provided?09/12/2024 Former B [place] ACTION PLAN Above Normal BMI Follow-up D ietary management education, guidance, and counseling * Follow Up: 1 Year (Reason: Asthma) * * Sign off status: Completed Visit Status: C HK (Check Out) true * Provider: Agustin Preston DO Date: 11/12/2023 Generated for Antonia roque/Raquel/Arabellaitting on: 0 05/27/2025 08:31 AM EDT History and Physical Notes * [...] scheduled for his LDCT on 09/25/2024 at [facility]. Patient is under the care of [facility] Cardiology. Examination Category Sub-Category Detail Notes Category Not es Exam GENERAL APPEARANCE: Appears stated age Skin Normal Mouth [place] and moist. Uppe r dentures. No candididiasis Trachea Midline Chest Normal Respiratory Normal Movements, Ef fort Normal Auscultation Diminished breath so unds. Expiratory wheezes Cardiac Regular rate and rhy thm Gastrointestinal Normal Vascular No edema Musculoskeletal Normal posture Neurological Focal, intact Psychiatric Alert and oriented x 3 Mentation/Cognition Normal Oropharynx Mallampati Class III
--- OUTSIDE RECORDS SUMMARY | 2024-09-26 04:06 | XMS_ITS ---
Author Organization [facility] in [place] Address [address] [place] [address] Care Team Providers Care Manager Site Name Role Phone Pool Peace MD Primary Care Provider Ranjit Gee Unavailable [phone] REASON FOR VISIT LDCT Result Encounters Encounter Location Date Provider Diagnosis Pulmonary Medicine [place] [address] [place] [address] 09/26/2024 Ranjit Preston Plan Of Treatment No Information Progress Notes * Mike OSEI LDOB:1950 (74 yo M)Acc No.[id number]:09/26/2024 Patient: Demar MIRELESMike :1950 A ge:74 Y S ex:Male Address:[address] [place], [place] [address], [address] * true * Date: Generated for Printi ng/Facarmelog/eTransmitting on: 0 05/27/2025 08:31 AM EDT
--- OUTSIDE RECORDS SUMMARY | 2025-04-01 10:00 | XMS_ITS ---
Author Organization [facility] Address [address] [place] [address] Care Team Providers Care Geological Sample Tester Name Role Phone Pool Peace Primary Care Provider Chas Boothe Unavailable [phone] REASON FOR VISIT RIGHT DISTAL FIB FRACTURE Encounters Encounter Location Date Provider Diagnosis [facility] Office [address] [place] [address] [place] [address] 04/01/2025 Chas Arenas Plan Of Treatment No Information Progress Notes * HUY MARTINEZ LDOB:1950 (75 yo M)Acc No.[id number]:04/01/2025 Patient: Demar MIRELES HUY Person Provider: Rachelle Arenas DO :1950 A ge:75 Y S ex:Male Date:04/01/2025 Address:Critical access hospital [facility] Pcp:Pool Peace Subjective: * Chief Complaints: * 1 . RIGHT DISTAL FIB FRACTURE. * Medical History: Objective: * Vitals: Assessment: Plan: * Treatment: Forms: * Images: * Electronic signature of Florentin Arenas DO on 05/27/2025 at 08:31 AM EDT Sign off status: Pending * Provider: Rachelle Arenas DO Date: 0 04/01/2025 Generated for Printi ng/Facarmelog/eTransmitting on: 0 05/27/2025 08:31 AM EDT
--- OUTSIDE RECORDS SUMMARY | 2025-05-06 09:30 | XMS_ITS ---
Author Organization [facility] Address [address] [place] [address] Care Team Providers Care Jukebox Coin Collector Name Role Phone Pool Peace Primary Care Provider Chas Boothe Unavailable [phone] REASON FOR VISIT RIGHT DISTAL FIB FRACTURE Encounters Encounter Location Date Provider Diagnosis [facility] [address] [place] [address] [place] [address] 05/06/2025 Chas Arenas Plan Of Treatment No Information Progress Notes * HUY MARTINEZ LDOB:1950 (75 yo M)Acc No.[id number]:05/06/2025 Patient: Demar MIRELES HUY Person Provider: Rachelle Arenas DO :1950 A ge:75 Y S ex:Male Date:05/06/2025 Address:[facility] Pcp:Pool Peace Subjective: * Chief Complaints: * 1 . RIGHT DISTAL FIB FRACTURE. * Medical History: Objective: * Vitals: Assessment: Plan: * Treatment: Forms: * Images: * Electronic signature of Florentin Arenas DO on 05/27/2025 at 08:30 AM EDT Sign off status: Pending * Provider: Rachelle Arenas DO Date: 0 05/06/2025 Generated for Printi ng/Facarmelog/eTransmitting on: 0 05/27/2025 08:30 AM EDT
--- OUTSIDE RECORDS SUMMARY | 2025-05-08 07:17 | XMS_ITS ---
Author Organization [facility] [place] Address [address] [place] [address] Care Team Providers Care Social Worker Assistant Name Role Phone Pool Peace MD Primary Care Provider Ranjit Gee Unavailable [phone] REASON FOR VISIT Letter/Appointment Encounters Encounter Location Date Provider Diagnosis [facility] [place] [address] [place] [address] 05/08/2025 Ranjit Preston Plan Of Treatment No Information Progress Notes * Mike OSEI LDOB:1950 (75 yo M)Acc No.[id number]:05/08/2025 Patient: Demar MIRELESMike :1950 A ge:75 Y S ex:Male Address:[address] [place], [place] [address], [address] * true * Date: Generated for Printi ng/Faxing/eTransmitting on: 0 05/27/2025 08:32 AM EDT
--- OUTSIDE RECORDS SUMMARY | 2025-05-27 08:30 | XMS_ITS | Encounter Summary ---
Author Organization [facility] Address [address] [place] [address] Care Team Providers Care Bacon Skinner Name Role Phone Pool Peace MD Unavailable Pool Peace MD Primary Care Provider [phone] Encounter Details Date Type Department Care Team [...] How often do you attend chur or adventism services? More than 4 times per year 02/08/2024 Do you belong to any clubs o r organizations such as muslim groups, unions, fraternal or athletic groups, or [...] Recorded Patient Health Questionnaire-2 Score 0 08/15/2024 [facility] of Occupat ional Health - Occupational Stress [...] Visit [facility] [address] [place] [phone] Pool Peace MD [address] [place] [address] documented as of this encounter Procedures Procedure Name Priority Date/Time Associated Diagnosis Comments CT LUNG SCREENING LOW DOSE 09/26/2024 7:33 AM EST documented in this encounter Results * CT LUNG SCREENING LOW DOSE (09/26/2024 7:33 AM EST) Anatomical Region Laterality Modality Other 09/26/2024 7:33 AM EST Narrative 09/26/2024 7:36 AM EST The [address] [address] [address] Scan Report Signed Patient: MIKE OSEI MR#: [id number] : 1950 Acct:[id number] Age/Sex: 74 / M ADM Date: 09/25/24 Loc: CT Attending Dr: Ranjit Pedraza D.O. Ordering Physician: Ranjit Pedraza D.O. Date of Service: 09/25/24 Procedure(s): CT lung screening low-dose Accession Number(s): [id number] cc: Pool Peace M.D. The [address] [address] Patient Name: MIKE OSEI MRN: [id number] date: 1950 Sex: M Assigned Patient Location: CT Current Patient Location: Accession/Order Number: [id number] Exam Date: 09/25/2024 09:21 Report Date: 09/26/2024 [...] M.D. Signed By: 09/26/2436 DD/ 2 TD/TT: Correctional Guard: Procedure Note Radiology, Radiologist, - 09/26/2024 [place] [address] CT Scan Report Signed Patient: MIKE OSEI LMR#: [id number] : 8Acct:[id number] Age/Sex: 74 / MADM Date: 09/25/24 Loc: CT Attending Dr: Ranjit Pedraza D.O. Ordering Physician: Ranjit Pedraza D.O. Date of Service: 09/25/24 Procedure(s): CT lung screening low-dose Accession Number(s): [id number] cc: Pool Peace M.D. The [address] [address] Patient Name: MIKE OSEI MRN: [id number] date: 1950 Sex: M Assigned Patient Location: CT Current Patient Location: Accession/Order Number: [id number] Exam Date: 09/25/2024 09:21 Report Date: 09/26/2024 [...] Umm Sandhu M.D. Signed By:09/26/2436 DD/ TD/TT: Correctional Guard: us Generic External Data Provider [facility] Final Result documented in this encounter Visit Diagnoses Not on filedocumented in this encounter Additional Health Concerns Assessment Noted Time PHQ-9 Depression Total Score: 1 08/15/20 24 11:00 AM EDT documented as of this encounter Care Teams Bacon Skinner Relationship Specialty Start Date End Date Pool Peace MD [address] [place] [address] PCP - [facility] 11/24/23 02/21/68 Pool Peace MD [address] [place] [address] PCP - General Family Medicine 08/15/24 documented as of this encounter
--- OUTSIDE RECORDS SUMMARY | 2025-05-27 08:30 | XMS_ITS | Encounter Summary ---
Author Organization [facility] Address [address] [place] [address] Care Team Providers Care Lab Technologist Name Role Phone Pool Peace MD Unavailable Pool Peace MD Primary Care Provider [phone] Encounter Details Date Type Department Care Team (Late st Contact Info) Description 10/29/2024 Orders Only [facility] [address] [place] [address] Pool Peace MD [address] [place] [address] Social History Tobacco Use Types Packs/Day Years [...] How often do you attend chur or mandaen services? More than 4 times per year 02/08/2024 Do you belong to any clubs o r organizations such as scientology groups, unions, fraternal or athletic groups, or [...] Recorded Patient Health Questionnaire-2 Score 0 08/15/2024 [facility] [place] of Occupat ional Health - Occupational Stress [...] place to sleep or slept in a custodial (including now)? No 02/08/2024 Sex and Gender [...] Visit [facility] [address] [place] [address] oPol Peace MD [address] [place] [address] documented as of this encounter Procedures Procedure [...] documented as of this encounter Care Teams Lab Technologist Relationship Specialty Start Date End Date Pool Peace MD [address] [place] [address] PCP - [facility] 11/24/23 02/21/68 Pool Peace MD [address] [place] [address] PCP - General Family Medicine 08/15/24 documented as of this encounter
--- OUTSIDE RECORDS SUMMARY | 2025-05-27 08:31 | XMS_ITS | Encounter Summary ---
Author Organization [facility] Address [address] [place] [place] [address] Care Team Providers Care Computer Builder Name Role Phone Pool Peace MD Primary Care Provider [phone] Reason for Visit * Reason Comments Med Refill Encounter Details Date Type Department Care Team (Late st Contact Info) Description 10/16/2022 Refill [facility] [address] [place] [phone] Dev Iniguez MD [address] [facility] [address] [facility] [place] [phone] Coronary atherosclerosis due to calcified coronary lesion [...] (CODE) documented in this encounter Care Teams Computer Builder Relationship Specialty Start Date End Date Pool Peace MD [address] [place] [address] PCP - General 12/13/22 documented as of this encounter
--- OUTSIDE RECORDS SUMMARY | 2025-05-27 08:31 | XMS_ITS | Encounter Summary ---
Author Organization [facility] Address [address] [place] [address] Care Team Providers Care Data Entry Clerk Name Role Phone Pool Peace MD Primary Care Provider [phone] Pool Peace MD Unavailable Pool Peace MD Primary Care Provider [phone] Encounter Details Date Type Department Care Team [...] Office Visit [facility] [address] [place] [address] Pool Peace MD [address] [place] [address] documented as of this encounter Procedures Procedure Name Priority Date/Time Associated Diagnosis Comments VASC US ANKLE BRACHIAL INDEX (GEETHA) WITH EXERCISE 01/10/2024 2:06 PM EDT documented in this encounter Results * Vascular US ankle brachial index (GEETHA) with exercise (01/10/2024 2:06 PM EDT) Anatomical Region Laterality Modality Lower Extremities Ultrasound 01/10/2024 2:06 PM EDT Narrative 01/10/2024 11:02 [place] [address] Cardiology Report Signed Patient: MIKE MARTINEZ MR#: [id number] : 1950 Acct:[id number] Age/Sex: 73 / M ADM Date: 01/10/24 Loc: CARD Attending Dr: ARON ANDERSON Ordering Physician: ARON ANDERSON Date of Service: 01/10/24 Procedure(s): CA pre/post exercise vasc VARINDER Accession Number(s): [id number] cc: ARON ANDERSON ; Pool Peace M.D. The [facility] Test Date: 2024-01-10 Pat Name: MIKE MARTINEZ Department: Room: - Gender: Male Hospital Internship: : 1950 Requested By: ARON ANDERSON M.D. Order Number: [id number] Reading MD: JEB ROJAS Interpretive Statements Biphasic [...] D.O. Signed By: 01/10/24230101/10/242301 DD/ 1406 TD/TT: Critical Power Technician: Procedure Note Radiology, Radiologist, - 01/10/2024 The [place] [id number] Cardiology Report Signed Patient: MIKE MARTINEZ LMR#: [id number] : 8Acct:[id number] Age/Sex: 73 / MADM Date: 01/10/24 Loc: CARD Attending Dr: ARON ANDERSON Ordering Physician: ARON ANDERSON Date of Service: 01/10/24 Procedure(s): CA pre/post exercise vasc VARINDER Accession Number(s): [id number] cc: ARON ANDERSON ; Pool Peace M.D. The [facility] Test Date: 2024-01-10 Pat Name: MIKE MARTINEZ Department: Room: - Gender: Male Hospital Internship: : 1950 Requested By: ARON ANDERSON M.D. Order Number: [id number] Reading MD: JEB ROJAS Interpretive Statements Biphasic [...] D.O. Signed By:01/10/24230101/10/24 2302 DD/ 1406 TD/TT: Critical Power Technician: us Generic External Data Provider IMG US PROCEDURES Final Result documented in this encounter Visit Diagnoses Not on filedocumented in this encounter Care Teams Data Entry Clerk Relationship Specialty Start Date End Date Pool Peace MD PCP - General Family Medicine 10/24/22 08/14/24 Pool Peace MD [address] [place] [address] PCP - [facility] 11/24/23 02/21/68 Pool Peace MD [address] [place] [address] PCP - General Family Medicine 08/15/24 documented as of this encounter
--- OUTSIDE RECORDS SUMMARY | 2025-05-27 08:31 | XMS_ITS | Encounter Summary ---
Author Organization [facility] Address [address] [place] [address] Care Team Providers Care Firmware Manager Name Role Phone Pool Peace MD Unavailable Pool Peace MD Primary Care Provider [phone] Encounter Details Date Type Department Care Team (Late st Contact Info) Description 04/22/2025 Abstract [facility] [address] [place] [address] Pool Peace MD [address] [place] [address] Social History Tobacco Use Types Packs/Day Years [...] How often do you attend chur or zoroastrian services? More than 4 times per year 02/08/2024 Do you belong to any clubs o r organizations such as zoroastrian groups, unions, fraternal or athletic groups, or [...] Recorded Patient Health Questionnaire-2 Score 0 08/15/2024 [facility] [place] of Occupat ional Health - Occupational Stress [...] Office Visit [facility] [address] [place] [address] Pool Peace MD [address] [place] [address] documented as of this encounter Visit Diagnoses Not on filedocumented in this encounter Additional Health Concerns Assessment Noted Time PHQ-9 Depression Total Score: 1 08/15/20 11:00 AM EDT documented as of this encounter Care Teams Firmware Manager Relationship Specialty Start Date End Date Pool Peace MD [address] [place] [address] PCP - [facility] 11/24/23 02/21/68 Pool Peace MD [address] [place] [address] PCP - General Family Medicine 08/15/24 documented as of this encounter
--- OUTSIDE RECORDS SUMMARY | 2025-05-27 08:31 | XMS_ITS | Encounter Summary ---
Author Organization [facility] Address [address] [place] [address] Care Team Providers Care Steam Engineer Name Role Phone Pool Peace MD Primary Care Provider [phone] Reason for Visit * Reason Comments Med Refill Encounter Details Date Type Department Care Team (Late st Contact Info) Description 10/29/2022 Refill [facility] Cardiology [address] [place] [address] Pricila Soto, TOLL TRANSMISSION WORKER [address] [place] [phone] Essential (primary) hypertension Social History Tobacco Use [...] hypertension documented in this encounter Care Teams Steam Engineer Relationship Specialty Start Date End Date Pool Peace MD [address] [place] [address] PCP - General 12/13/22 documented as of this encounter
--- OUTSIDE RECORDS SUMMARY | 2025-05-27 08:31 | XMS_ITS | Encounter Summary ---
Author Organization [facility] Address [address] [place] [address] Care Team Providers Care Wringer Operator Name Role Phone Pool Peace MD Primary Care Provider [phone] Reason for Visit * Reason Comments Med Refill Encounter Details Date Type Department Care Team (Late st Contact Info) Description 11/20/2022 Refill [facility] [address] [place] [phone] Dev Iniguez MD [address] [facility] [address] [facility] [place] [phone] Mixed hyperlipidemia Social History Tobacco Use Types [...] hyperlipidemia documented in this encounter Care Teams Wringer Operator Relationship Specialty Start Date End Date Pool Peace MD [address] [place] [address] PCP - General 12/13/22 documented as of this encounter
--- OUTSIDE RECORDS SUMMARY | 2025-05-27 08:31 | XMS_ITS | Encounter Summary ---
Author Organization [facility] Address [address] [place] [address] Care Team Providers Care Powder Core Tester Name Role Phone Pool Peace MD Primary Care Provider [phone] Pool Peace MD Unavailable Pool Peace MD Primary Care Provider [phone] Encounter Details Date Type Department Care Team (Late st Contact Info) Description 01/12/2024 Orders Only [facility] [address] [place] [address] Dev Iniguez MD [address] [place] [address] Social History Tobacco Use Types [...] Office Visit [facility] [address] [place] [address] Pool Peace MD [address] [place] [address] documented as of this encounter Procedures Procedure [...] on filedocumented in this encounter Care Teams Powder Core Tester Relationship Specialty Start Date End Date Pool Peace MD PCP - General Family Medicine 10/24/22 08/14/24 Pool Peace MD [address] [place] [address] PCP - [facility] 11/24/23 02/21/68 Pool Peace MD [address] [place] [address] PCP - General Family Medicine 08/15/24 documented as of this encounter
--- OUTSIDE RECORDS SUMMARY | 2025-05-27 08:31 | XMS_ITS | Encounter Summary ---
Author Organization [facility] Address [address] [place] [address] Care Team Providers Care Manager Practice Name Role Phone Pool Peace MD Unavailable Pool Peace MD Primary Care Provider [phone] Encounter Details Date Type Department Care Team (Late st Contact Info) Description 02/13/2025 Results Follow-Up [facility] [address] [place] [phone] Pool Peace MD [address] [place] [address] Social History Tobacco Use Types Packs/Day Years [...] often do you attend chur ch or christianity services? More than 4 times per year 02/08/2024 Do you belong to any clubs o r organizations such as synagogue groups, unions, fraternal or athletic groups, or [...] Recorded Patient Health Questionnaire-2 Score 0 08/15/2024 [facility] of Occupat ional Health - Occupational Stress [...] place to sleep or slept in a long term (including now)? No 02/08/2024 Sex and Gender [...] [facility] [address] [place] [address] Pool Peace MD [address] [place] [address] documented as of this encounter Visit Diagnoses Not on filedocumented in this encounter Additional Health Concerns Assessment Noted Time PHQ-9 Depression Total Score: 1 08/15/20 11:00 AM EDT documented as of this encounter Care Teams Manager Practice Relationship Specialty Start Date End Date Pool Peace MD [address] [place] [address] PCP - [facility] 11/24/23 02/21/68 Pool Peace MD [address] [place] [address] PCP - General Family Medicine 08/15/24 documented as of this encounter
--- OUTSIDE RECORDS SUMMARY | 2025-05-27 08:31 | XMS_ITS | Encounter Summary ---
Author Organization [facility] Address [address] [place] [address] Care Team Providers Care Shot Peen Operator Name Role Phone Pool Peace MD Primary Care Provider [phone] Reason for Visit * Reason Comments Med Refill Encounter Details Date Type Department Care Team (Late st Contact Info) Description 03/11/2023 Refill [facility] [address] [place] [phone] Dev Iniguez MD [address] [facility] [address] [facility] [place] [phone] Borderline hyperlipidemia Social History Tobacco Use Types [...] hyperlipidemia documented in this encounter Care Teams Shot Peen Operator Relationship Specialty Start Date End Date Pool Peace MD [address] [place] [address] PCP - General 12/13/22 documented as of this encounter
--- OUTSIDE RECORDS SUMMARY | 2025-05-27 08:31 | XMS_ITS | Encounter Summary ---
Author Organization [facility] Address [address] [place] [address] Care Team Providers Care Emergency Room Clinician Name Role Phone Pool Peace MD Primary Care Provider [phone] Pool Peace MD Unavailable Pool Peace MD Primary Care Provider [phone] Encounter Details Date Type Department Care Team [...] 08/27/2025 11:00 AM EST Office Visit [facility] [address] [place] [address] Pool Peace MD [address] [place] [address] documented as of this encounter Procedures Procedure Name Priority Date/Time Associated Diagnosis Comments XR CHEST 2V 11/14/2023 3:27 PM EST documented in this encounter Results * XR CHEST 2V (11/14/2023 3:27 PM EST) Anatomical Region Laterality Modality Other 11/14/2023 3:27 PM EST Narrative 11/14/2023 3:30 PM EST The [address] [address] XRay Report Signed Patient: MIKE OSEI MR#: [id number] : 1950 Acct:[id number] Age/Sex: 73 / M ADM Date: 11/14/23 Loc: RAD Attending Dr: Leigha Pedraza D.O. Ordering Physician: Leigha Pedraza D.O. Date of Service: 11/14/23 Procedure(s): XR chest 2V Accession Number(s): [id number] cc: Pool Peace M.D.; Leigha Pedraza D.O. The [address] [address] Patient Name: MIKE OSEI MRN: [id number] date: 1950 Sex: M Assigned Patient Location: [facility] Current Patient Location: [facility] Accession/Order Number: [id number] Exam Date: 11/14/2023 15:05 Report Date: 11/14/2023 [...] change cardiac and mediastinal silhouettes or angelina. Supply Technician technique today. Relatively mild peribronchial thickening at [...] Signed By: 11/14/23 1530 DD/ 1527 TD/TT: Senior Sharepoint Developer: Procedure Note Radiology, Radiologist, - 11/14/2023 [place] [address] XRay Report Signed Patient: MIKE OSEI LMR#: [id number] : 8Acct:[id number] Age/Sex: 73 / MADM Date: 11/14/23 Loc: RAD Attending Dr: Leigha Pedraza D.O. Ordering Physician: Leigha Pedraza D.O. Date of Service: 11/14/23 Procedure(s): XR chest 2V Accession Number(s): [id number] cc: Pool Peace M.D.; Leigha Pedraza D.O. The [place] [address] Patient Name: MIKE OSEI MRN: [facility]:[id number] date: 1950 Sex: M Assigned Patient Location: [facility] Current Patient Location: [facility] Accession/Order Number: [id number] Exam Date: 11/14/2023 15:05 Report Date: 11/14/2023 [...] change cardiac and mediastinal silhouettes or angelina. Supply Technician technique today. Relatively mild peribronchial thickening at [...] M.D. Signed By:11/14/23 1530 DD/ 1527 TD/TT: Senior Sharepoint Developer: us Generic External Data Provider [facility] Final Result documented in this encounter Visit Diagnoses Not on filedocumented in this encounter Care Teams Emergency Room Clinician Relationship Specialty Start Date End Date Pool Peace MD PCP - General Family Medicine 10/24/22 08/14/24 Pool Peace MD [address] [place] [phone] PCP - [facility] 11/24/23 02/21/68 Pool Peace MD [address] [place] [address] PCP - General Family Medicine 08/15/24 documented as of this encounter
--- OUTSIDE RECORDS SUMMARY | 2025-05-27 08:31 | XMS_ITS | Encounter Summary ---
Author Organization [facility] Address [address] [place] [address] Care Team Providers Care Organizational Psychologist Name Role Phone Pool Peace MD Primary Care Provider [phone] Pool Peace MD Unavailable Pool Peace MD Primary Care Provider [phone] Encounter Details Date Type Department Care Team (Late st Contact Info) Description 01/11/2024 Orders Only [facility] [address] [place] [phone] Dev Iniguez MD [address] [place] [address] Social History Tobacco Use Types [...] Office Visit [facility] [address] [place] [address] Pool Peace MD [address] [place] [address] documented as of this encounter Procedures Procedure [...] on filedocumented in this encounter Care Teams Organizational Psychologist Relationship Specialty Start Date End Date Pool Peace MD PCP - General Family Medicine 10/24/22 08/14/24 Pool Peace MD [address] [place] [address] PCP - [facility] 11/24/23 02/21/68 Pool Peace MD [address] [place] [address] PCP - General Family Medicine 08/15/24 documented as of this encounter
--- OUTSIDE RECORDS SUMMARY | 2025-05-27 08:31 | XMS_ITS | Encounter Summary ---
Author Organization [facility] Address [address] [place] [address] Care Team Providers Care Glass Frame Fitter Name Role Phone Pool Peace MD Primary Care Provider [phone] Reason for Visit * Reason Comments Med Refill Encounter Details Date Type Department Care Team (Late st Contact Info) Description 09/18/2022 Refill [facility] [address] [place] [phone] Dev Iniguez MD [address] [facility] [address] [facility] [phone] Coronary atherosclerosis due to calcified coronary lesion [...] (CODE) documented in this encounter Care Teams Glass Frame Fitter Relationship Specialty Start Date End Date Pool Peace MD [address] [place] [address] PCP - General 12/13/22 documented as of this encounter
--- OUTSIDE RECORDS SUMMARY | 2025-05-27 08:31 | XMS_ITS | Clinical Summary ---
Author Organization [facility] Address [address] [place] [address] Care Team Providers Care Hand Tier Name Role Phone Pool Peace MD Unavailable Pool Peace MD Primary Care Provider [phone] Allergies Active Allergy Reactions Criticality Noted Date [...] BPH without urinary obstruction 02/14/2024 CAD in [place] artery 02/14/2024 Cholelithiasis without cholecystitis 02/14/2024 Chronic [...] Encounters Date Type Department Care Team Description 04/22/2025 Abstract [facility] [address] [place] [address] Pool Peace MD 03/16/2025 Refill [facility] [address] [place] [address] Pool Peace MD Essential (primary) hypertension ; [...] often do you attend chur ch or methodist services? More than 4 times per year 02/08/2024 Do you belong to any clubs o r organizations such as oriental orthodox groups, unions, fraternal or athletic groups, or [...] Recorded Patient Health Questionnaire-2 Score 0 08/15/2024 [facility] of Occupat ional Health - Occupational Stress [...] place to sleep or slept in a skilled nursing (including now)? No 02/08/2024 Sex and Gender [...] Visit [facility] [address] [place] [address] Pool Peace MD [address] [place] [phone] Health Maintenance Due Date Last Done Comments Pneumococcal Vaccine: 65+ Ye ars (2 of 2 - PCV) 05/05/2021 05/05/2020 Influenza Vaccine (#1) 2025 08/15/2024, 2020 Medicare Annual Wellness (AWV) 08/15/2025 08/15/2024 Colonoscopy Discontinued 07/22/2023 Colorectal Cancer Screening Discontinued CT Colonography Discontinued FIT-DNA Discontinued FIT Discontinued FOBT Discontinued Sigmoidoscopy Discontinued Procedures Procedure Name Priority Date/Time Associated Diagnosis Comments MR LUMBAR SPINE WO CON 03/08/2025 3:00 PM EDT from Last 3 Months Results * MR LUMBAR SPINE WO CON (03/08/2025 3:00 PM EDT) Anatomical Region Laterality Modality Other 03/08/2025 3:00 PM EDT Narrative 03/08/2025 3:02 PM EDT The [address] [address] Magnetic Resonance Report Signed Patient: MIKE OSEI MR#: [id number] : 1950 Acct:[id number] Age/Sex: 75 / M ADM Date: 03/08/25 Loc: MRI Attending Dr: Maricarmen Shaw NP Ordering Physician: Maricarmen Shaw NP Date of Service: 03/08/25 Procedure(s): MR lumbar spine wo con Accession Number(s): [id number] cc: Maricarmen Shaw NP; Pool Peace M.D. The [address] [address] Patient Name: MIKE OSEI MRN: [id number] date: 1950 Sex: M Assigned Patient Location: MRI Current Patient Location: MRI Accession/Order Number: [id number] Exam Date: 03/08/2025 14:55 Report Date: 03/08/2025 [...] Lentz M.D. 03/08/2025 3:00 PM Dictation Location: [place] [address] Electronically authenticated by: [id number] Y Date: 03/08/2025 15:00 Dictated By: Sanket Lenzt M.D. Signed By: 03/08/25 1502 DD/ 1500 TD/TT: Senior Center Director: Procedure Note Radiology, Radiologist, MD - 03/08/2025 [place] [address] Magnetic Resonance Report Signed Patient: MIKE OSEI R#: [id number] : 1950cct:[id number] Age/Sex: 75 / MADM Date: 03/08/25 Loc: MRI Attending Dr: Maricarmen Shaw NP Ordering Physician: Maricarmen Shaw NP Date of Service: 03/08/25 Procedure(s): MR lumbar spine wo con Accession Number(s): [id number] cc: Maricarmen Shaw NP; Pool Peace M.D. The [address] [address] Patient Name: MIKE OSEI MRN: [facility]:[id number] date: 1950 Sex: M Assigned Patient Location: MRI Current Patient Location: MRI Accession/Order Number: [id number] Exam Date: 03/08/2025 14:55 Report Date: 03/08/2025 [...] Lentz M.D. 03/08/2025 3:00 PM Dictation Location: [place] [address] Electronically authenticated by: [id number] Y Date: :00 Dictated By: Sanket Lentz M.D. Signed By:03/08/25 1502 DD/ 1500 TD/TT: Senior Center Director: Generic External Data Provider [facility] Final Result from Last 3 Months Insurance [employer] MEDICARE Care Teams Hand Tier Relationship Specialty Start Date End Date Pool Peace MD [address] [place] [address] PCP - [facility] 11/24/23 02/21/68 Pool Peace MD [address] [place] [address] PCP - General Family Medicine 08/15/24
--- OUTSIDE RECORDS SUMMARY | 2025-05-27 08:31 | XMS_ITS | Encounter Summary ---
Author Organization [facility] Address [address] [place] [address] Care Team Providers Care Consolidation Accountant Name Role Phone Pool Peace MD Primary Care Provider [phone] Pool Peace MD Unavailable Pool Peace MD Primary Care Provider [phone] Encounter Details Date Type Department Care Team [...] 08/27/2025 11:00 AM EST Office Visit [facility] [address] [place] [address] Pool Peace MD [address] [place] [address] documented as of this encounter Procedures Procedure Name Priority Date/Time Associated Diagnosis Comments CA ECHO DOPPLER COMPLETE 01/12/2024 2:01 PM EDT documented in this encounter Results * CA ECHO DOPPLER COMPLETE (01/12/2024 2:01 PM EDT) Anatomical Region Laterality Modality Other 01/12/2024 2:01 PM EDT Narrative 01/12/2024 2:02 [place] [address] Cardiology Report Signed Patient: MIKE MARTINEZ MR#: [id number] : 1950 Acct:[id number] Age/Sex: 73 / M ADM Date: 01/10/24 Loc: CARD Attending Dr: ARON ANDERSON Ordering Physician: ARON ANDERSON Date of Service: 01/10/24 Procedure(s): CA echo doppler complete Accession Number(s): [id number] cc: ARON ANDERSON ; Pool Peace M.D. Patient Name: MIKE MARTINEZ MR#: [id number] : 1950 Exam Date: 01/10/2024 Ordering Doctor: [...] Signed By: 01/12/24 1402 DD/ 1401 TD/TT: Facility Administrator: Procedure Note Radiology, Radiologist, MD - 01/12/2024 [place] [address] Cardiology Report Signed Patient: MIKE MARTINEZ LMR#: [id number] : 1950cct:[id number] Age/Sex: 73 / MADM Date: 01/10/24 Loc: CARD Attending Dr: ARON ANDERSON Ordering Physician: ARON ANDERSON Date of Service: 01/10/24 Procedure(s): CA echo doppler complete Accession Number(s): [id number] cc: ARON ANDERSON ; Pool Peace M.D. Patient Name: MIKE MARTINEZ MR#: [id number] : 1950 Exam Date: 01/10/2024 Ordering Doctor: [...] 77.98 ml, 77.98 ml Dictated by: Evelyne Mirnada M.D. on 01/12/2024 at 13:57 Approved by: Evelyne Miranda M.D. on 01/12/2024 at 14:01 Dictated By: Evelyne Miranda M.D. Signed By:01/12/24 1402 DD/ 1401 TD/TT: Facility Administrator: Generic External Data Provider [facility] Final Result documented in this encounter Visit Diagnoses Not on filedocumented in this encounter Care Teams Consolidation Accountant Relationship Specialty Start Date End Date Pool Peace MD PCP - General Family Medicine 10/24/22 08/14/24 Pool Peace MD [address] [place] [address] PCP - [facility] 11/24/23 02/21/68 Pool Peace MD [address] [place] [address] PCP - General Family Medicine 08/15/24 documented as of this encounter
--- OUTSIDE RECORDS SUMMARY | 2025-05-27 08:31 | XMS_ITS | Clinical Summary ---
Author Organization [facility] Address [address] [place] [address] Care Team Providers Care Qc Manager Name Role Phone Unavailable Primary Care Provider [...] - 2023-2 5 season) 2024 INFLUENZA VACCINE (#1) 2025 HEP B VACCINE Aged Out No longer elig jarett based on patient's age to complete this topic
--- OUTSIDE RECORDS SUMMARY | 2025-05-27 08:31 | XMS_ITS | Encounter Summary ---
Author Organization [facility] Address [address] [place] [place] [address] Care Team Providers Care Warp Doffer Name Role Phone Pool Peace MD Primary Care Provider [phone] Reason for Visit * Reason Comments Med Refill Encounter Details Date Type Department Care Team (Late st Contact Info) Description 12/10/2022 Refill [facility] [address] [place] [address] Dev Iniguez MD [address] [facility] [place] [address] Borderline hyperlipidemia (Primary Dx) Social [...] Primary documented in this encounter Care Teams Warp Doffer Relationship Specialty Start Date End Date Pool Peace MD [address] [place] [address] PCP - General 12/13/22 documented as of this encounter
--- OUTSIDE RECORDS SUMMARY | 2025-05-27 08:31 | XMS_ITS | Encounter Summary ---
Author Organization [facility] Address [address] [place] [place] [address] Care Team Providers Care Acquisitions Logistics Analyst Name Role Phone Pool Peace MD Primary Care Provider [phone] Reason for Visit * Reason Comments Med Refill Encounter Details Date Type Department Care Team (Late st Contact Info) Description 03/23/2024 Refill [facility] [address] [place] [address] Dev Iniguez MD [address] [facility] [place] [address] Borderline hyperlipidemia Social History Tobacco [...] hyperlipidemia documented in this encounter Care Teams Acquisitions Logistics Analyst Relationship Specialty Start Date End Date Pool Peace MD [address] [place] [address] PCP - General 12/13/22 documented as of this encounter
--- OUTSIDE RECORDS SUMMARY | 2025-05-27 08:32 | XMS_ITS | Patient Health Record ---
Author Organization [facility] Address [address] [place] [address] Care Team Providers Care Tool Trouble Shooter Name Role Phone Pool Peace Primary Care Provider Bautista zach Chas Arenas Unavailable [phone] Salina Gunetr Unavailable Reason For Referral No Information Social History Alcohol Screening Question Answer Notes Points 0 AUDIT-C (Standard) Question Answer Notes Did you have a drink containing alcohol in the p ast year? No Points 0 Interpretation Negative Problems Problem Type SNOMED Code ICD Code Onset Dates Problem Status W/U Status Risk Notes Problem [id number] Closed fracture of distal end of right fibula with routine healing, unspecified fracture morphology, subsequent encounter (S82.831D) Active confirmed Encounters Encounter Location Date Provider Diagnosis [facility] [facility] [address] [place] [phone] 04/30/2025 Chas Arenas Closed fracture of distal end of right fibula with routine healing, unspecified fracture morphology, subsequent encounter S82.831D [facility] [address] [place] [address] 12/25/2024 Chas Arenas Closed fracture of distal end of right fibula, unspecified fracture morphology, initial encounter S82.831A [facility] [address] [facility] [place] [address] [place] [address] 12/31/2024 Salina Gunter Closed fracture of distal end of right fibula with routine healing, unspecified fracture morphology, subsequent encounter S82.831D [facility] Office [address] [facility] [place] [address] [place] [address] 01/14/2025 Chas Arenas Closed fracture of distal end of right fibula with routine healing, unspecified fracture morphology, subsequent encounter S82.831D [address] [place] [address] 02/18/2025 Chas Arenas Closed fracture of distal [...] (ICD-10 - S82.831D) Right distal fibula fracture 04/30/2025 Closed fracture of distal end of right fibula with routine healing, unspecified fracture morphology, subsequent encounter (ICD-10 - S82.831D) Right distal fibula fracture 04/30/2025 Other I had discussio n today with Mike regarding his right distal fibular fracture. Overall stable on x-rays today. May continue weightbearing as tolerated. Will see him back as needed. Right distal fibula fracture 12/25/2024 Other I [...] Order Date SCC- ANKLE 3 VIEW RIGHT 59094 01/14/2025 SCC- ANKLE 3 VIEW RIGHT 20084 02/18/2025 Ankle, right 3v - 95393 04/30/2025 Ankle, right 3v - 03131 12/25/2024 Ankle, right 3v - 28747 12/31/2024 Stress view manual stress by physician 7 7071 12/25/2024 Insurance Providers Payer Name Payer Address Payer Phone Subscriber Number Group Number Insured Name Patient Relationship to Insured Coverage Start Date Coverage End Date MEDICARE [employer] [address] [address] [place] [address] [id number] MIKE MARTINEZ Self - patient is the insured
--- OUTSIDE RECORDS SUMMARY | 2025-05-27 08:32 | XMS_ITS | Encounter Summary ---
Author Organization [facility] Address [id number] [address] [place] [address] Care Team Providers Care Assistant Buyer Name Role Phone Pool Peace MD Primary Care Provider [phone] Reason for Visit * Reason Comments Med Refill Encounter Details Date Type Department Care Team (Late st Contact Info) Description 08/10/2017 Refill [facility] [address] [place] [address] [place] [address] Nir Simpson, DO [address] [place] [address] Social History Tobacco Use Types Packs/Day Years [...] documented as of this encounter Care Teams Assistant Buyer Relationship Specialty Start Date End Date Pool Peace MD PCP - General 09/16/17 documented as of this encounter
--- OUTSIDE RECORDS SUMMARY | 2025-05-27 08:32 | XMS_ITS | Patient Health Record ---
Author Organization [facility] [place] Address [address] [place] [address] Care Team Providers Care Paralegal Internship Name Role Phone Pool Peace MD Primary Care Provider Leigha Gee Unavailable [phone] Allergies Allergen (clinical drug ingredient) Drug/Non Drug Allergy documented on EMR Reaction Allergy Type Onset Date Status Penicillin rash Drug Allergy Active Results Component Value Reference Range Notes CT Chest Low Dose for Screen ing* Reviewed date:09/26/2024 07:48:52 AM Interpretation: Performing Lab: Notes/Report: CT lung screening low-dose Reviewed date:09/26/2024 08:07:39 AM Interpretation: Performing Lab: Notes/Report: Source Facility: [place] [address] [place] [address] CT Scan Report Signed Patient: MIKE OSEI MR#: [id number] : 1950 Acct:[id number] Age/Sex: 74 / M ADM Date: 09/25/24 Loc: CT Attending Dr: Leigha Pedraza D.O. Ordering Physician: Leigha Pedraza D.O. Date of Service: 09/25/24 Procedure(s): CT lung screening low-dose Accession Number(s): [id number] cc: Pool Peace M.D. [place] [address] Patient Name: MIKE OSEI MRN: [id number] date: 1950 Sex: M Assigned Patient Location: CT Current Patient Location: Accession/Order Number: [id number] Exam Date: 09/25/2024 09:21 Report Date: 09/26/2024 [...] M.D. Signed By: 09/26/2436 DD/ 2 TD/TT: Head Bookkeeper: [place] [address] CT Scan Report Signed Patient: MIKE OSEI MR#: [id number] : 1950 Acct:[id number] Age/Sex: 74 / M ADM Date: 09/25/24 Loc: CT Attending Dr: Leigha Pedraza D.O. Ordering Physician: Leigha Pedraza D.O. Date of Service: 09/25/24 Procedure(s): CT edelmira g screening low-dose Accession Number(s): [id number] cc: Pool Peace M.D. [address] [address] Patient Name: MIKE OSEI MRN: [id number] date: 1950 Sex: M Assigned Patient Location: CT Current Patient Location: Accession/Order Numb er: [id number] Exam Date: 09:21 Report Date: 09/26/2024 07:33 [...] M.D. Signed By: 09/26/24735 DD/ 2 TD/TT: Head Bookkeeper: Reason For Referral No Information Medications Medication [...] Administration Date Status Comme nts Flu, Fluad (11801) 65 yrs an d older, single-dose syringe Unknown 08/15/2024 Administered Flu, Fluzone High-Dose (2022 -2023) (86066) 65 yrs+ Unknown 09/15/2021 Administered SARS-COV-2 (COVID [...] Problem Status W/U Status Risk Notes Problem 154665097 Unspecified asthma with (acute) exacerbation (J45.901) Active confirmed Problem 313342895 Obesity, unspecified (E66.9) Active confirmed Problem Long-term current use of 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 (306627226) retirement (current) use of 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s (Z79.51) Active confirmed Problem Multiple pulmonary nodules (419551435) Multiple pulmonary nodules (R91.8) Active confirmed Problem Ex-tobacco user (finding) (042116770) History of tobacco abuse (Z87.891) Active confirmed 1ppd x 40 years, quit 2017 Problem Eosinophilic asthma (602752447) 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) Active confirmed Prior treatment: Trelegy 200 >>> Pulmicort/ Yupelri/Br ovana = Breztri > Trelegy 100, Stiloto, Duaklir Problem Body mass index 30.00 to 34.99 (22646984552243 7) Body mass index [BMI] 31.0-31.9, adult [...] Encounter Location Date Provider Diagnosis [facility] [address] [place] [address] 07/11/2024 [facility] [place] [address] [place] [address] 09/11/2024 [facility] [address] [place] [address] 09/26/2024 [facility] [address] [place] [address] 05/08/2025 [facility] [address] [place] [address] 09/12/2024 [facility] Eosinophilic asthma J82.83 ; Multiple pulmonary nodules R91.8 ; History of tobacco abuse Z87.891 ; retirement (current) use of 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s Z79.51 and Obesity, unspecified E66.9 Assessments Encounter Date Diagnosis (ICD Code) Assessment Notes Treatment Notes Treatment Clinical Notes Section Notes 09/12/2024 Eosinophilic asthma (ICD-10 - J82.83) Prior treatment: Trelegy 200 >>> Pulmicort/Yupe lri/Brovana = Breztri > Trelegy 100, Zi Dang Patient is once again in the donut [...] for him. I am not an insurance office supervisor, but I suggested he may want to [...] increase activity. 09/12/2024 Other Plan Of Treatment No Information Insurance Providers Payer Name Payer Address Payer Phone Subscriber Number Group Number Insured Name Patient Relationship to Insured Coverage Start Date Coverage End Date [employer] MEDICARE [address] [address] [place], [place] [id number] Mike Osei Self - patient is the insured Medical (General) History Medical History History ICD Code Eosinophilic asthma J82.83 retirement (current) use of inhaled stero ids Z79.51 [...]
--- OUTSIDE RECORDS SUMMARY | 2025-05-27 08:32 | XMS_ITS | Clinical Summary ---
Author Organization [facility] Address [address] [place] [address] Care Team Providers Care Mime Artist Name Role Phone Pool Peace MD Primary Care Provider [phone] Allergies Active Allergy Reactions Criticality Noted Date [...] Description 03/25/2025 9:45 AM EDT Office Visit [address] [address] Dev Iniguez MD Pre-op evaluation (Primary Dx); Coronary artery disease involving [place] coronary artery of [place] heart without angina pectoris; Peripheral vascular disease; Primary hypertension; Mixed hyperlipidemia; Stage 3a chronic kidney disease (CMS/HCC) 03/22/2025 Orders Only [address] [id number] ProviderOmari MD from Last 3 Months Family [...] 2024 05/16/2022, 09/15/2021, 01/22/2021, Additional history exists Influenza Vaccine (#1) 2025 , 08/15/2024, 09/15/2021 Adult Tetanus 03/12/2034 03/12/2024 HIB Vaccines Aged Out No longer eligi [...] Routine 03/25/2025 9:40 AM EDT Pre-op evaluation from Last 3 Months Results * ECG 12 lead unit performed (03/25/2025 9:40 AM EDT) Dev Iniguez MD ECG ORDERABLES Final Result from Last 3 Months Insurance [employer] MEDICARE ADVANTAGE Care Teams Mime Artist Relationship Specialty Start Date End Date Pool Peace MD [address] [place] [address] PCP - General 12/13/22
--- OUTSIDE RECORDS SUMMARY | 2025-05-27 08:32 | XMS_ITS | Clinical Summary ---
Author Organization [facility] [facility] Address [id number] [address] [place] [address] Care Team Providers Care Freight Team Associate Name Role Phone Pool Peace MD Primary Care Provider [phone] Allergies Active Allergy Reactions Criticality Noted Date [...] history exists Medical Devices Implanted Type Area Mobile Equipment Operator Device Identifier Shelf Expiration Date Model / Serial / Lot Lens Iol Ultrasert 17.5d - [id number] - [id number] Implanted:Qty: 1 on 08/21/2019 by Rose Marie Concepcion MD at [facility] Lens Right: [employer] 08/22/2021 AU00T0 17.5 / [id number] / NA Lens Iol Ultrasert 17.5d - [id number] - [id number] Implanted:Qty: 1 on 09/06/2019 by Rose Marie Concepcion MD at [facility] Lens Left: [employer] 04/22/2021 AU00T0 17.5 / [id number] / NA Mesh 15x9cm Parietex Progrip Slf Fx Srg - [id number] Implanted:Qty: 1 on 07/25/2023 by Delta Piña MD at [facility] Mesh [employer] 09/22/2027 [id number] 09G / NA / [id number] Procedures Procedure Name Priority Date/Time Associated Diagnosis [...] Relevant to Health Maintenance Insurance [place] [id number] Care Teams Freight Team Associate Relationship Specialty Start Date End Date Pool Peace MD PCP - General 09/16/17
--- OUTSIDE RECORDS SUMMARY | 2025-05-27 08:32 | XMS_ITS | Clinical Summary ---
Author Organization [facility] Address [address], [address] [place] [address] Care Team Providers Care Dye Range Operator Name Role Phone Pool Peace MD [...] Visit (Medic are Advantage) 10/24/2024 Flu vaccine (#1) 05/24/2025 DTaP/Tdap/Td vaccine (2 - Td or Tdap) [...] patient's age to complete this topic Insurance [employer] MED[employer] Care Teams Dye Range Operator Relationship Specialty Start Date End Date Pool Peace MD [address] [place] [address] PCP - General Family Medicine 03/12/24
[2025-05-27 08:37] VITALS: BP 149/78; PULSE 65; TEMP 37; O2SAT 95
--- OUTSIDE RECORDS SUMMARY | 2025-05-27 08:47 | XMS_ITS | CCD ---
Author Organization [facility] Providers Care Lining Parts Sewer Name Role Phone [place] Procedure Practitioner Unavailab le SELF, REFERRED Referring Unavailable SELF, REFERRED Primary Care Unavailable EBRAHEIM, ANDREWS Surgeon Unavailable EBRAHEIM, ANDREWS Attending Unavailable EBRAHEIM, ANDREWS Admitting Unavailable [place] Procedure Practitioner Unavailab YA Galarza Surgeon Unavailable UNKNOWN, PROVIDER Attending Unavailable UNKNOWN, PROVIDER Admitting Unavailable NADERER, POOL Primary Care Unavailable NADERER, POOL Referring Unavailable UNKNOWN, PROVIDER Attending Unavailable UNKNOWN, PROVIDER Admitting Unavailable NADEREMariusz, POOL Referring Unavailable NADEREMariusz, POOL Primary Care Unavailable UNKNOWN, PROVIDER Attending Unavailable UNKNOWN, PROVIDER Admitting Unavailable SELF, REFERRED Referring Unavailable SELF, REFERRED Primary Care Unavailable [place] Procedure Practitioner Unavailab le SELF, REFERRED Primary Care Unavailable EBRAHEIM, ANDREWS Surgeon Unavailable EBRAHEIM, ANDREWS Referring Unavailable EBRAHEIM, ANDREWS Attending Unavailable EBRAHEIM, ANDREWS Admitting Unavailable CHAUHAN ., DR SCOTT Jurado Consulting Unavailable NADERER, DR POOL Valera Primary Care Unavailable CHAUHAN ., DR SCOTT Jurado Attending Unavailable CHAUAHN ., DR SCOTT Jurado Admitting Unavailable CHAUHAN ., DR SCOTT Jurado Consulting Unavailable NADEREMariusz, DR POOL Valera Primary Care Unavailable CHAUHAN [...] POOL Valera Primary Care Unavailable SAMSA ., LEIGAH Attending Unavailable SAMSA ., LEIGHA Admitting Unavailable [...] GALLEGOS Consulting Unavailable GALEN FOFANA Attending Unavailable NADCARLEEN, POOL IVERSON Primary Care UnavailPool Mendoza MD Unavailable Pool Garcia MD Primary Care Provider POOL GARCIA Attending Unavailable JOSE, POOL Attending Unavailable HOLLY HUGHES Attending Unavailable ARON ANDERSON Attending Unavailable Pool Garcia MD Primary Care Provider Jaswant Henley MD Attending Provider Giaguilaritis , Paty Turner Attending Unavailable Gilong PAVON, Paty Turner Attending Unavailable Allergies Allergy Classification Reported Allergen(s) Allergy Type Date of Onset Reaction(s) Facility (3 sources) Penicillins; Translations: [PENICILLINS] Drug allergy (disorder) 7 [facility] Repository (4 sources) Penicillin G Drug Allergy 4 hives and throat swelling [facility] (16 sources) Morphine; Translations: [MORPHINE] Drug Allergy 4 Unknown, Nausea And Vomiting, Other [facility] (12 sources) Penicillins Drug Allergy 9 Anaphylaxis, Angioedema, Hives, Itching, Other, Rash, Unknown [facility] Medications Current Medications Medication Drug Class(es) Dates Sig (Normalized) Sig (Original) amLODIPine 10 mg oral tablet (5 sources) Dihydropyridine Calcium Channel Karina Start: 09-04-2024 End: 02-02-2025 take 1 tablet by mouth once daily Amlodipine 10 mg tablet Active 10 MG PO Daily February 02, 2025 10:44am Complies with drug therapy atorvastatin 80 mg oral tablet (15 sources) HMG-CoA Reductase Inhibitor Start: 02-02-2025 take 1 tablet by mouth once daily Atorvastatin 80 mg tablet Active 80 MG PO Daily February 02, 2025 12:00am Complies with drug therapy take 2 tablets by mouth once cinthia ly atorvastatin (Lipitor) 40 MG tablet Take 80 mg by mouth Daily Active Atorvastatin Christiano cium Active clopidogrel 75 mg oral tablet (15 sources) P2Y12 Platelet Inhibitor Start: 11-09-2023 take 1 tablet by mouth once daily Clopidogrel 75 mg tablet Active 75 MG PO Daily February 02, 2025 12:00am Complies with drug therapy take 1 tablet by inocencio th every twenty-four hours Clopidogrel Bisulfate 75 MG 1 tablet Orally Once a day Active CoQ-10 150 MG (1 source) CoQ-10 150 MG as directed Orally Active doxycycline hyclate 100 mg oral capsule (1 source) Tetracycline-cl ass Drug Start: 05-24-2023 take 1 capsule by mouth every twelve hours Doxycycline Hyclate 100 MG 1 capsule Orally Twice a day for 7 days May, Active Fish Oils (1 source) take 1 capsule by mouth once daily Fish Oil 1000 MG 1 capsule Orally Once a day Active Fluticasone-Umeclidin- Vilanter (2 sources) Start: 02-02-2025 Fluticasone-Umeclidin -Vilanter (Trelegy Ellipta) 200-62.5-25 mcg blister with device Active 1 INH INHALATION Once February 02, 2025 12:00am Complies with drug therapy Start: 02-02-2025 Fluticasone-Um eclidin-Vilanter (Trelegy Ellipta) 200-62.5-25 mcg blister with device Active 1 INH INHALATION Once February 02, 2025 12:00am gabapentin 600 mg oral tablet (1 source) Anti-epileptic Agent Start: 05-07-2025 take 1 tablet by mouth twice daily Gabapentin 600 mg tablet Active 600 MG PO Twice daily May 07, 2025 12:00am Complies with drug therapy hydroCHLOROthiazide 25 mg oral tablet (16 sources) Thiazide Diuretic Start: 03-05-2024 take 1 tablet by mouth once Hydrochlorothiazide 25 mg tablet Active 25 MG PO Once February 02, 2025 12:00am Complies with drug therapy hydroCHLOROthiaz betito Active 24 hr metoprolol succinate 50 mg extended release oral tablet (18 sources) beta-Adrenergic Karina Start: 02-02-2025 take 1 tablet by mouth once daily Metoprolol Succinate 50 mg tablet extended release 24 hr Active 50 MG PO Daily February 02, 2025 10:45am Complies with drug therapy Start: 09-04-2024 End: 02-02-2025 take 1 tablet by mouth every twenty-four hours Metoprolol Succinate 50 mg tablet extended release 24 hr Discontinued MG PO September 04, 2024 1:00am February 02, 2025 10:47am Metoprolol Succi nelson ER Active Multivitamin preparation (1 source) take 1 tablet by mouth once daily Multi Vitamin - 1 tablet Orally Once a day Active ofloxacin 3 mg/ml ophthalmic solution (1 source) Quinolone Antimicrobial Start: 02-03-20 take 0.3 drop(s) into the eye(s) four times daily Ofloxacin 0.3 % drops Active 2 DROPS EYE-BOTH Four times daily 10 February 02, 2025 12:00am Complies with drug therapy Osteo Bi-Flex Adv Joint Shield (1 source) Osteo Bi-Flex Ad v Joint Shield Active predniSONE 50 mg oral tablet (8 sources) Start: 02-14-20 End: 02-20-20 take 1 tablet by mouth once daily [...] source) Nitrate Vasodilator Isosorbide Mononitrate ER Not-Taking losartan potassium 100 mg oral tablet (19 sources) Angiotensin 2 Receptor Karina Start: 07-24-2024 End: 07-24-2025 Losartan 100 mg tablet Discontinued MG PO September 04, 2024 1:00am February 02, 2025 10:47am Losartan Potassi um Active terbinafine 250 mg oral tablet (3 sources) Allylamine Antifungal Start: 02-13-2024 End: 08-15-2024 take 1 tablet by mouth once daily terbinafine (LamISIL) 250 MG tablet Indications: Tinea unguium , Dermatophytosis of nail TAKE 1 TABLET BY MOUTH EVERY DAY 30 tablet 2 02/13/2024 08/15/2024 Discontinued vitamin a 46517 unt oral capsule (1 source) Vitamin A Start: 09-04-2024 End: 02-02-2025 Vitamin A Palmitate (A-25 (Vit A Palmitate)) 7,500 mcg (25,000 unit) capsule Discontinued 7500 MCG PO every week September 04, 2024 1:00am February 02, 2025 10:45am Vitamin A Palmitate (A-25 (Vit A Palmitate)) [...] disease (16 sources) Atherosclerotic heart disease of [place] coronary artery without angina pectoris; Translations: [Coronary [...] 02-02-2025 Episodic Gout and other crystal arthropathies (4 sources) Arthritis of right wrist due to [...] immunization; Translations: [Encounter for immunization] 08-15-2024 Episodic Inflammation; infection of eye (except that caused by tuberculosis or sexually transmitteddisease) (1 source) Unspecified acute conjunctivitis, bilateral; Translations: [Acute conjunctivitis of both eyes] 02-02-2025 Episodic Malaise and fatigue (12 sources) Other [...] 02-14-2024 Chronic Other aftercare (1 source) Other 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 attack 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 (current) drug therapy; Translations: [OTH MIGRATION AGENT CURRENT DRUG THERAPY] Onset: 01-16-2023 Episodic Other aftercare (10 sources) Long-term current use of drug therapy; Translations: [Other skilled nursing (current) drug therapy] Onset: 02-13-2025 08-15-2024 Episodic [...] Onset: 08-15-2024 08-15-2024 Other aftercare (1 source) intermediate (current) use of anticoagulants; Translations: [MIGRATION AGENT CURRNT USE ANTICOAGULANTS] Onset: 03-03-2022 Episodic Other [...] Range Facility Office Visiton 03-25-2025 Follow-up visit [id number] Huy Osei 1950 M Date Provider Department Center 03/25/2025 Aroldo-ARON ANDERSON [facility] Family History Problem Relation Age of Onset Cancer Mother Cancer Brother Diabetes Paternal Grandmother Family Status - Relation Status Age at Mother Father Brother Paternal Grandmother Level of Service:46555 [place] OFFICE/OUTPATIENT ESTABLISHED MOD MDM 30 MIN Normal [facility] Orders Onlyon 03-22-2025 Orders Only [id number] Huy Osei 1950 M Date Provider Department Center 03/22/2025 [id number], HISTORICAL [facility] Family History Problem Relation Age of Onset Cancer Mother Cancer Brother Diabetes Paternal Grandmother Family Status - Relation Status Age at Mother Brother Paternal Grandmother [facility] [place] [address] Magnetic Resonance Report Signed Patient: HUY OSEI MR#: [id number] : 1950 Acct:[id number] Age/Sex: 75 / M ADM Date: 03/08/25 Loc: MRI Attending Dr: Maricarmen Rhoades NP Ordering Physician: Maricarmen Rhoades NP Date of Service: 03/08/25 Procedure(s): MR lumbar spine wo con Accession Number(s): [id number] cc: Maricarmen Rhoades NP; Pool Garcia M.D. [place] [id number] Patient Name: HUY OSEI MRN: [id number] date: 1950 Sex: M Assigned Patient Location: MRI Current Patient Location: MRI Accession/Order Number: [id number] Exam Date: 03/08/2025 14:55 Report Date: 03/08/2025 [...] Lentz M.D. 03/08/2025 3:00 PM Dictation Location: [place] [address] Electronically authenticated by: [id number] Y Date: 03/08/2025 15:00 Dictated By: Sanket Lentz M.D. Signed B (more content not included)... [facility] Radiology, Radiologist, MD - 03/08/2025 [place] [address] Magnetic Resonance Report Signed Patient: HUY OSEI MR#: [id number] : 1950 Acct:[id number] Age/Sex: 75 / M ADM Date: 03/08/25 Loc: MRI Attending Dr: Maricarmen Rhoades NP Ordering Physician: Maricarmen Rhoades NP Date of Service: 03/08/25 Procedure(s): MR lumbar spine wo con Accession Number(s): [id number] cc: Maricarmen Rhoades NP; Pool Garcia M.D. The [place] [id number] Patient Name: HUY OSEI MRN: [id number] date: 1950 Sex: M Assigned Patient Location: MRI Current Patient Location: MRI Accession/Order Number: [id number] Exam Date: 03/08/2025 14:55 Report Date: 03/08/2025 [...] Lentz M.D. 03/08/2025 3:00 PM Dictation Location: [place] [address] Electronically authenticated by: [id number] Y Date: 03/08/2025 15:00 Dictated By: Sanket Lentz M.D. Signed By: 03/08/25 1502 DD/ 1500 TD/TT: Charter Coach Driver: [facility] Radiology Study observation (narrative) [facility] MR LUMBAR SPINE WO CONOrdere d By: Radiologist Radiology on 03-08-2025 [facility] Work Phone: XR LUMBAR SPINE 6V W BENDING on 02-21-2025 [place] [address] XRay Report Signed Patient: HUY OSEI MR#: [id number] : 1950 Acct:[id number] Age/Sex: 75 / M ADM Date: 02/21/25 Loc: RAD Attending Dr: Maricarmen Rhoades NP Ordering Physician: Maricarmen Rhoades NP Date of Service: 02/21/25 Procedure(s): XR lumbar spine 6V w bending Accession Number(s): [id number] cc: Maricarmen Rhoades NP; Pool Garcia M.D. The [address] [address] Patient Name: HUY OSEI MRN: [facility]:[id number] date: 1950 Sex: M Assigned Patient Location: [facility] Current Patient Location: [facility] Accession/Order Number: [id number] Exam Date: 02/21/2025 11:57 Report Date: 02/21/2025 [...] Jr., D.O. 02/21/2025 11:59 AM Dictation Location: [place] [address] Electronically authenticated by: [id number] Y Date: 02/21/2025 11:59 Dictated By: Ezra Lacy M.D. Signed By: 02/21/25 1201 DD/ 1159 TD/TT: Charter Coach Driver: [facility] Radiology, Radiologist, MD - 02/21/2025 The [place] [id number] XRay Report Signed Patient: HUY OSEI MR#: [id number] : 1950 Acct:[id number] Age/Sex: 75 / M ADM Date: 02/21/25 Loc: [facility] Attending Dr: Maricarmen Rhoades NP Ordering Physician: Maricarmen Rhoades NP Date of Service: 02/21/25 Procedure(s): XR lumbar spine 6V w bending Accession Number(s): [id number] cc: Maricarmen Rhoades NP; Pool Garcia M.D. The [place] [address] Patient Name: HUY OSEI MRN: [id number] date: 1950 Sex: M Assigned Patient Location: [facility] Current Patient Location: [facility] Accession/Order Number: [id number] Exam Date: 02/21/2025 11:57 Report Date: 02/21/2025 [...] Jr., D.OOtoniel 02/21/2025 11:59 AM Dictation Location: [place] [address] Electronically authenticated by: [id number] Y Date: 02/21/2025 11:59 Dictated By: Ezra Lacy M.D. Signed By: 02/21/25 1201 DD/ 1159 TD/TT: Charter Coach Driver: [facility] Radiology Study observation (narrative) [facility] XR LUMBAR SPINE 6V W BENDING Ordered By: Radiologist Radiology on 02-21-2025 [facility] Work Phone: XR ANKLE RT MIN [address] [place] [address] XRay Report Signed Patient: HUY OSEI MR#: [id number] : 1950 Acct:[id number] Age/Sex: 75 / M ADM Date: 02/18/25 Loc: EC Attending Dr: Chas Forte M.D. Ordering Physician: Chas Forte M.D. Date of Service: 02/18/25 Procedure(s): XR ankle RT min 3V Accession Number(s): [id number] cc: Chas Forte M.D.; Pool Garcia M.D. The [address] [address] Patient Name: HUY OSEI MRN: [facility]:[id number] date: 1950 Sex: M Assigned Patient Location: Current Patient Location: Accession/Order Number: [id number] Exam Date: 02/18/2025 16:00 Report Date: 02/18/2025 [...] Jr., DOtonielOOtoniel 02/18/2025 4:01 PM Dictation Location: [place] [address] Electronically authenticated by: [id number] Y Date: 02/18/2025 16:01 Dictated By: Ezra Lacy M.D. Signed By: 02/18/25 1604 DD/ 1601 TD/TT: Charter Coach Driver: [facility] Radiology, Radiologist, - 02/18/2025 [place] [address] XRay Report Signed Patient: HUY OSEI MR#: [id number] : 1950 Acct:[id number] Age/Sex: 75 / M ADM Date: 02/18/25 Loc: Attending Dr: Chas Forte M.D. Ordering Physician: Chas Forte M.D. Date of Service: 02/18/25 Procedure(s): XR ankle RT min 3V Accession Number(s): [id number] cc: Chas Forte M.D.; Pool Garcia M.D. The [place] [id number] Patient Name: HUY OSEI MRN: [id number] date: 1950 Sex: M Assigned Patient Location: Current Patient Location: Accession/Order Number: [id number] Exam Date: 02/18/2025 16:00 Report Date: 02/18/2025 [...] Jr., D.O. 02/18/2025 4:01 PM Dictation Location: [place] [address] Electronically authenticated by: [id number] Y Date: 02/18/2025 16:01 Dictated By: Ezra Lacy M.D. Signed By: 02/18/25 1604 DD/ 1601 TD/TT: Charter Coach Driver: [facility] Radiology Study observation (narrative) [facility] XR ANKLE RT MIN 3VOrdered By : Radiologist Radiology on 02-18-2025 [facility] Work Phone: ALL BASIC METABOLIC PANELon 02-13-2025 Anion gap [Moles/Vol] 11.7 mmol/L [facility] Calcium [Mass/Vol] 10.1 mg/dL 8.5 - 10. 1 mg/dL [facility] Chloride [Moles/Vol] 99 mmol/L 98 - 10 7 mmol/L [facility] CO2 [Moles/Vol] 31 mmol/L 21.0 - 32.0 mmol/L [facility] Creatinine [Mass/Vol] 1.46 mg/dL High 0.70 - 1.30 mg/dL [facility] GFR/1.73 sq M.predicted CKD-EPI (S/P/Bld) [Vol rate/Area] 57 Low >=60 mL/min/1.73m 2 [facility] Glucose [Mass/Vol] 92 mg/dL 74 - 106 mg/dL [facility] Interpretation and review of laboratory results Abnormal [facility] Potassium [Moles/Vol] 3.7 mmol/L 3.5 - 5.1 mmol/L [facility] Sodium [Moles/Vol] 138 mmol/L 136 - 145 mmol/L [facility] TBH EGFR-NON AF BRAZILIAN 47 Low >=60 mL/min/1.73m 2 [facility] Urea nitrogen [Mass/Vol] 20 mg/dL High 7.0 - 18.0 mg/dL [facility] Urea nitrogen/Creatinine [Mass ratio] 13.7 mg/mg [facility] Albumin [Mass/Vol] 3.6 g/dL 3.4 - 5.0 g/dL [facility] ALBUMIN GLOBULIN RATIO 1 NO [facility] ALP [Catalytic activity/Vol] 87 U/L 46 - 116 U/L [facility] ALT [Catalytic activity/Vol] 21 U/L 16 - 63 U/L [facility] AST [Catalytic activity/Vol] 17 U/L 15 - 37 U/L [facility] Bilirubin [Mass/Vol] 0.6 mg/dL 0.2 - 1 .0 mg/dL [facility] Bilirubin.indirect [Mass/Vol] 0.2 mg/dL 0.0 - 0.2 mg/dL [facility] Globulin (S) [Mass/Vol] 3.5 g/dL N [facility] Protein [Mass/Vol] 7.1 g/dL 6.4 - 8.2 g/dL [facility] No Panel Informationon 02-13 [facility] XR ANKLE RT MIN [address]on [address] [place] [address] XRay Report Signed Patient: HUY OSEI MR#: [id number] : 1950 Acct:[id number] Age/Sex: 74 / M ADM Date: 01/14/25 Loc: EC Attending Dr: Chas Forte M.D. Ordering Physician: Chas Forte M.D. Date of Service: 01/14/25 Procedure(s): XR ankle RT min 3V Accession Number(s): [id number] cc: Chas Forte M.D.; Pool Garcia M.D. [address] [address] Patient Name: HUY OSEI MRN: [facility]:[id number] date: 1950 Sex: M Assigned Patient Location: Current Patient Location: Accession/Order Number: [id number] Exam Date: 01/14/2025 14:52 Report Date: 01/14/2025 [...] Lacy Jr., D.O.01/14/2025 2:53 PM Dictation Location: [place] [address] Electronically authenticated by: [id number] Y Date: 01/14/2025 14:53 Dictated By: Ezra Lacy M.D. Signed By: 01/14/25 1455 DD/ 52 TD/TT: Charter Coach Driver: [facility] Radiology, Radiologist, - 01/14/2025 [place] [address] XRay Report Signed Patient: HUY OSEI MR#: [id number] : 1950 Acct:[id number] Age/Sex: 74 / M ADM Date: 01/14/25 Loc: Attending Dr: Chas Forte M.D. Ordering Physician: Chas Forte M.D. Date of Service: 01/14/25 Procedure(s): XR ankle RT min 3V Accession Number(s): [id number] cc: Chas Forte M.D.; Pool Garcia M.D. The [address] [address] Patient Name: HUY OSEI MRN: [id number] date: 1950 Sex: M Assigned Patient Location: Current Patient Location: Accession/Order Number: [id number] Exam Date: 01/14/2025 14:52 Report Date: 01/14/2025 [...] FRACTURE. Impression dictated by: Ezra Lacy Jr., D.OOtoniel01/14/2025 2:53 PM Dictation Location: [place] [address] Electronically authenticated by: [id number] Y Date: 01/14/2025 14:53 Dictated By: Ezra Lacy M.D. Signed By: 01/14/25 1455 DD/ 1453 TD/TT: Charter Coach Driver: [facility] Radiology Study observation (narrative) [facility] XR ANKLE RT MIN 3VOrdered By : Radiologist Radiology on 01-14-2025 [facility] Work Phone: XR ANKLE RT MIN [address] [address] XRay Report Signed Patient: HUY OSEI MR#: [id number] : 1950 Acct:[id number] Age/Sex: 74 / M ADM Date: 12/31/24 Loc: EC Attending Dr: Chas Forte M.D. Ordering Physician: Chas Forte M.D. Date of Service: 12/31/24 Procedure(s): XR ankle RT min 3V Accession Number(s): [id number] cc: Chas Forte M.D.; Pool Garcia M.D. The [place] [id number] Patient Name: HUY OSEI MRN: [facility]:[id number] date: 1950 Sex: M Assigned Patient Location: Current Patient Location: Accession/Order Number: [id number] Exam Date: 12/31/2024 17:31 Report Date: 01/01/2025 [...] 3V IMPRESSION: Stable findings Impression dictated by: Raamna Caro M.D.01/01/2025 3:15 PM Dictation Location: [place] [address] Electronically authenticated by: [id number] Y Date: 01/01/2025 15:15 Dictated By: Ramana Caro D.O. Signed By: 01/01/25 1517 DD/ TD/TT: Charter Coach Driver: [facility] Radiology, Radiologist, - 01/01/2025 [place] [address] XRay Report Signed Patient: HUY OSEI MR#: [id number] : 1950 Acct:[id number] Age/Sex: 74 / M ADM Date: 12/31/24 Loc: Attending Dr: Chas Forte M.D. Ordering Physician: Chas Forte M.D. Date of Service: 12/31/24 Procedure(s): XR ankle RT min 3V Accession Number(s): [id number] cc: Chas Forte M.D.; Pool Garcia M.D. The [place] [id number] Patient Name: HUY OSEI MRN: [facility]:[id number] date: 1950 Sex: M Assigned Patient Location: Current Patient Location: Accession/Order Number: [id number] Exam Date: 12/31/2024 17:31 Report Date: 01/01/2025 [...] Ramana Caro M.D.01/01/2025 3:15 PM Dictation Location: [place] [address] Electronically authenticated by: [id number] Y Date: 01/01/2025 15:15 Dictated By: Ramana Caro D.O. Signed By: 01/01/251516 DD/ 14 TD/TT: Charter Coach Driver: [facility] Radiology Study observation (narrative) [facility] XR ANKLE RT MIN 3VOrdered By : Radiologist Radiology on 01-01-2025 [facility] Work Phone: Orders Onlyon 09-07-2024 Orders Only [id number] Huy Osei 1950 M Date Provider Department Center 09/07/2024 [facility] Family History Problem Relation Age of Onset Cancer Mother Cancer Brother Diabetes Paternal Grandmother Family Status - Relation Status Age at Mother Brother Paternal Grandmother Normal [facility] ALL CBC WITH AUTO DIFFon BASOPHILS ABSOLUTE AUTO 0.1 N [facility] Basophils/100 WBC (Bld) 0.7 % 0.2 - 2.0 % [facility] Eosinophils/100 WBC (Bld) 3.2 % 0.9 - 7.0 % [facility] Erythrocyte distribution width (RBC) [Ratio] 12.9 % 11.0 - 15.0 % [facility] Hematocrit (Bld) [Volume fraction] 35.1 % Low 42.0 - 54.0 % [facility] Hemoglobin (Bld) [Mass/Vol] 11.9 g/dL Low 14.0 - 18.0 g/dL [facility] IMMATURE GRANULOCYTES ABS AUTO 0.03 [facility] Immature granulocytes/100 WBC (Bld) 0.4 % 0.0 - 0.5 % [facility] Interpretation and review of laboratory results Abnormal [facility] LYMPHOCYTES ABSOLUTE AUTO 0.9 Low [facility] Lymphocytes/100 WBC (Bld) 13.3 % Low 20.5 - 60.0 % [facility] MCH (RBC) [Entitic mass] 33.1 pg 25.9 - 34.0 pg [facility] MCHC (RBC) [Mass/Vol] 33.9 g/dL 29.9 - 35.2 g/dL [facility] MCV (RBC) [Entitic vol] 97.8 fL High 80.0 - 94.0 fL [facility] MONOCYTES ABSOLUTE AUTO 0.8 N [facility] Monocytes/100 WBC (Bld) 11.7 % 1.7 - 12.0 % [facility] NEUTROPHILS ABSOLUTE AUTO 4.9 [facility] Neutrophils/100 WBC (Bld) 70.7 % 43.0 - 75.0 % [facility] Platelet mean volume (Bld) [Entitic vol] 9.2 fL Low 9.5 - 13.5 fL [facility] TBH EO # 0.2 [facility] TBH PLT 242 [facility] TB RBC 3.59 Low [facility] TB WBC 6.9 [facility] Office Visiton 07-13-2024 Follow-up visit [id number] Huy Osei 1950 M Date Provider Department Center 07/13/2024 HOLLY DOUGLAS Family History Problem Relation Age of Onset Cancer Mother Cancer Brother Diabetes Paternal Grandmother Family Status - Relation Status Age at Mother Brother Paternal Grandmother Level of Service:33633 [place] OFFICE/OUTPATIENT ESTABLISHED LOW MDM 20 MIN Normal [facility] CT HEAD WO CONTRASTon 2023 CT HEAD [...] Maria Waddell MD 03/12/24 Final result Normal [facility] [facility] 2023 Albumin [Mass/Vol] 4.3 g/dL Normal 3.5-5.2 [facility] Comment on above: Performed By: #### C DP, PTT, PT, CP #### [address] [address] Radiocommunications Technician: Daniel Rosado MD Albumin/Glob Ratio 2.0 Normal 1.0-2.5 [facility] Comment on above: Performed By: #### C DP, PTT, PT, CP #### [address] [address] Radiocommunications Technician: Daniel Rosado MD Alkaline Phos 68 U/L Normal 40-129 [facility] Comment on above: Performed By: #### C DP, PTT, PT, CP #### [address] [address] Radiocommunications Technician: Daniel Rosado MD ALT [Catalytic activity/Vol] 17 U/L Normal 10-50 [facility] Comment on above: Performed By: #### C DP, PTT, PT, CP #### [address] [address] Radiocommunications Technician: Daniel Rosado MD Anion gap [Moles/Vol] 17 mmol/L High 9-16 [facility] Comment on above: Performed By: #### C DP, PTT, PT, CP #### [address] [address] Radiocommunications Technician: Daniel Rosado MD AST [Catalytic activity/Vol] 26 U/L Normal 10-50 [facility] Comment on above: Result Comment: SPEC IMEN SLIGHTLY HEMOLYZED, RESULTS MAY BE ADVERSELY AFFECTED. Performed By: #### C DP, PTT, PT, CP #### [address] [address] Radiocommunications Technician: Daniel Rosado MD Bilirubin [Mass/Vol] 0.3 mg/dL Normal 0.00-1.20 [facility] Comment on above: Performed By: #### C DP, PTT, PT, CP #### [facility] [address] [place] [address] Radiocommunications Technician: Daniel Rosado MD Calcium [Mass/Vol] 9.5 mg/dL Normal 8.6-10.4 [facility] Comment on above: Performed By: #### C DP, PTT, PT, CP #### [facility] [address] [place] [address] Radiocommunications Technician: Daniel Rosado MD Chloride [Moles/Vol] 94 mmol/L Low 98-107 [facility] Comment on above: Performed By: #### C DP, PTT, PT, CP #### [facility] [address] [place] [address] Radiocommunications Technician: Daniel Rosado MD CO2 [Moles/Vol] 18 mmol/L Low 20-31 [facility] Comment on above: Performed By: #### C DP, PTT, PT, CP #### [facility] [address] [place] [address] Radiocommunications Technician: Daniel Rosado MD Creatinine [Mass/Vol] 1.8 mg/dL High 0.70-1.20 [facility] Comment on above: Performed By: #### C DP, PTT, PT, CP #### [facility] [address] [place] [address] Radiocommunications Technician: Daniel Rosado MD GFR/1.73 sq M.predicted among non-blacks MDRD (S/P/Bld) [Vol rate/Area] 40 mL/min/{1.73_m2} Low >60 [facility] Comment on above: Result Comment: These results [...] C DP, PTT, PT, CP #### [facility] [address] [place] [address] Radiocommunications Technician: Daniel Rosado MD Glucose [Mass/Vol] 106 mg/dL High 74-99 [facility] Comment on above: Performed By: #### C DP, PTT, PT, CP #### [address] [address] Radiocommunications Technician: Daniel Rosado MD Potassium [Moles/Vol] 3.9 mmol/L Normal 3.7-5.3 [facility] Comment on above: Result Comment: SPEC IMEN SLIGHTLY HEMOLYZED, RESULTS MAY BE ADVERSELY AFFECTED. Performed By: #### C DP, PTT, PT, CP #### [address] [address] Radiocommunications Technician: Daniel Rosado MD Protein [Mass/Vol] 6.9 g/dL Normal 6.6-8.7 [facility] Comment on above: Performed By: #### C DP, PTT, PT, CP #### [address] [address] Radiocommunications Technician: Daniel Rosado MD Sodium [Moles/Vol] 129 mmol/L Low 136-145 [facility] Comment on above: Performed By: #### C DP, PTT, PT, CP #### [address] [address] Radiocommunications Technician: Dnaiel Rosado MD Urea nitrogen [Mass/Vol] 27 mg/dL High 8-23 [facility] Comment on above: Performed By: #### C DP, PTT, PT, CP #### [address] [address] Radiocommunications Technician: Daniel Rosado MD APTTon 03-12-2024 aPTT Coag (Bld) [Time] 22.5 s Low 23.0-36.5 [facility] Comment on above: Result Comment: IV Heparin Therapy Range: 66.0-92.0 sec Performed By: #### C DP, PTT, PT, CP #### [place] [address] Radiocommunications Technician: Daniel Rosado MD CBC with Diffon 03-12-2024 Abs. Basophil 0.06 k/uL Normal 0.00-0.20 [facility] Comment on above: Performed By: #### C DP, PTT, PT, CP #### [place] [address] Radiocommunications Technician: Daniel Rosado MD Abs.Imm.Granulocyte 0.06 k/uL Normal 0.00-0.30 [facility] Comment on above: Performed By: #### C DP, PTT, PT, CP #### [place] [address] Radiocommunications Technician: Daniel Rosado MD Abs.Neutrophil (Seg) 5.10 k/uL Normal 1.50-8.10 [facility] Comment on above: Performed By: #### C DP, PTT, PT, CP #### [place] [address] Radiocommunications Technician: Daniel Rosado MD Basophils/100 WBC (Bld) 1 % Normal 0-2 [facility] Comment on above: Performed By: #### C DP, PTT, PT, CP #### [place] [address] Radiocommunications Technician: Daniel Rosado MD Eosinophils (Bld) [#/Vol] 0.16 10*3/uL Normal 0.00-0.44 [facility] Comment on above: Performed By: #### C DP, PTT, PT, CP #### [place] [address] Radiocommunications Technician: Daniel Rosado MD Eosinophils/100 WBC (Bld) 2 % Normal 1-4 [facility] Comment on above: Performed By: #### C DP, PTT, PT, CP #### [place] [address] Radiocommunications Technician: Daniel Rosado MD Erythrocyte distribution width (RBC) [Ratio] 13.6 % Normal 11.8-14.4 [facility] Comment on above: Performed By: #### C DP, PTT, PT, CP #### [place] [address] Radiocommunications Technician: Daniel Rosado MD Hematocrit (Bld) [Volume fraction] 34.3 % Low 40.7-50.3 [facility] Comment on above: Performed By: #### C DP, PTT, PT, CP #### [place] [address] Radiocommunications Technician: Daniel Rosado MD Hemoglobin (Bld) [Mass/Vol] 11.5 g/dL Low 13.0-17.0 [facility] Comment on above: Performed By: #### C DP, PTT, PT, CP #### [place] [address] Radiocommunications Technician: Daniel Rosado MD Immature granulocytes/100 WBC (Bld) 1 % High 0 [facility] Comment on above: Performed By: #### C DP, PTT, PT, CP #### [place] [address] Radiocommunications Technician: Daniel Rosado MD Lymphocytes (Bld) [#/Vol] 1.02 10*3/uL Low 1.10-3.70 [facility] Comment on above: Performed By: #### C DP, PTT, PT, CP #### [address] [address] Radiocommunications Technician: Daniel Rosado MD Lymphocytes/100 WBC (Bld) 14 % Low 24-43 [facility] Comment on above: Performed By: #### C DP, PTT, PT, CP #### [address] [address] Radiocommunications Technician: Daniel Rosado MD MCH (RBC) [Entitic mass] 32.9 pg Normal 25.2-33.5 [facility] Comment on above: Performed By: #### C DP, PTT, PT, CP #### [address] [address] Radiocommunications Technician: Daniel Rosado MD MCHC (RBC) [Mass/Vol] 33.5 g/dL Normal 28.4-34.8 [facility] Comment on above: Performed By: #### C DP, PTT, PT, CP #### [address] [address] Radiocommunications Technician: Daniel Rosado MD MCV (RBC) [Entitic vol] 98.0 fL Normal 82.6-102.9 [facility] Comment on above: Performed By: #### C DP, PTT, PT, CP #### [address] [address] Radiocommunications Technician: Daniel Rosado MD Monocytes (Bld) [#/Vol] 0.86 10*3/uL Normal 0.10-1.20 [facility] Comment on above: Performed By: #### C DP, PTT, PT, CP #### [address] [address] Radiocommunications Technician: Daniel Rosado MD Monocytes/100 WBC (Bld) 12 % Normal 3-12 [facility] Comment on above: Performed By: #### C DP, PTT, PT, CP #### [address] [address] Radiocommunications Technician: Daniel Rosado MD Neutrophil (Seg) 70 % High 36-65 [facility] Comment on above: Performed By: #### C DP, PTT, PT, CP #### [address] [address] Radiocommunications Technician: Daniel Rosado MD NRBC Automated 0.0 per 100 WBC Normal 0.0 [facility] Comment on above: Performed By: #### C DP, PTT, PT, CP #### [address] [address] Radiocommunications Technician: Daniel Rosado MD Platelet mean volume (Bld) [Entitic vol] 8.9 fL Normal 8.1-13.5 [facility] Comment on above: Performed By: #### C DP, PTT, PT, CP #### [address] [address] Radiocommunications Technician: Daniel Rosado MD Platelets (Bld) [#/Vol] 240 10*3/uL Normal 138-453 [facility] Comment on above: Performed By: #### C DP, PTT, PT, CP #### [address] [address] Radiocommunications Technician: Daniel oRsado MD RBC (Bld) [#/Vol] 3.50 10*6/uL Low 4.21-5.77 [facility] Comment on above: Performed By: #### C DP, PTT, PT, CP #### [address] [address] Radiocommunications Technician: Daniel Rosado MD WBC (Bld) [#/Vol] 7.3 10*3/uL Normal 3.5-11.3 [facility] Comment on above: Performed By: #### C DP, PTT, PT, CP #### [address] [address] Radiocommunications Technician: Daniel Rosado MD PTon 03-12-2024 INR Coag (PPP) [Relative time] 1.0 {INR} Normal [facility] Comment on above: Result Comment: Therapeutic Range: Moderate Anticoagulant Intensity: INR = 2.0-3.0 High Anticoagulant Intensity: INR = 2.5-3.5 Performed By: #### C DP, PTT, PT, CP #### [facility] [place], [place] [id number] Radiocommunications Technician: Daniel Rosado MD PT Coag (PPP) [Time] 13.0 s Normal 11.7-14.9 [facility] Comment on above: Performed By: #### C DP, PTT, PT, CP #### [facility] [address] [place] [id number] Radiocommunications Technician: Daniel Rosado MD TESTOSTERONE, TOTALon 2022 Testosterone [Mass/Vol] 215 ng/dL Critically low 264-916 [facility] Comment on above: Result Comment: Adul t male reference interval is based on a population of healthy nonobese males (BMI <30) between 19 and 39 years old. ashely Lee.al. JCEM 2017,102;6379-9886. PMID: [id number]. Performed By: #### T ESTTOT #### [facility] [address] [place] [address] Dr. Marilin Rothman CBC AUTO DIFFon 01-13-2023 BASO # 0.0 103/ul Normal 0.0-0.1 [facility] Comment on above: Performed By: #### T ALEXANDER, BMP #### [facility] [address] [place] [address] Dr. Marilin Rothman Basophils/100 WBC (Bld) 0.3 % Normal 0.2-2.0 [facility] Comment on above: Performed By: #### T ALEXANDER, BMP #### [facility] [address] [place] [address] Dr. Marilin Rothman EO # 0.0 103/ul Normal 0.0-0.7 [facility] Comment on above: Performed By: #### T ALEXANDER, BMP #### [facility] [address] [place], [place] [id number] Dr. Marilin Rothman Eosinophils/100 WBC (Bld) 0.2 % Critically low 0.9-7.0 [facility] Comment on above: Performed By: #### T SH, BMP #### [facility] [address] [place] [address] Dr. Marilin Rothman Erythrocyte distribution width (RBC) [Ratio] 13.3 % Normal 11.0-15.0 [facility] Comment on above: Performed By: #### T SH, BMP #### [facility] [address] [place] [address] Dr. Marilin Rothman Hematocrit (Bld) [Volume fraction] 38.2 % Critically low 42.0-54.0 [facility] Comment on above: Performed By: #### T SH, BMP #### [facility] [address] [place] [address] Dr. Marilin Rothman Hemoglobin (Bld) [Mass/Vol] 13.1 g/dL Critically low 14.0-18.0 [facility] Comment on above: Performed By: #### T SH, BMP #### [facility] [address] [place] [address] Dr. Marilin Rothman IG # 0.08 10e3/ul Critically high 0.00-0.03 [facility] Comment on above: Performed By: #### T SH, BMP #### [facility] [address] [place] [address] Dr. Marilin Rothman IG % 0.8 % Critically high 0.0-0.5 [facility] Comment on above: Performed By: #### T SH, BMP #### [facility] [address] [place] [address] Dr. Marilin Rothman LYMPH # 1.0 103/ul Critically low 1.2-3.8 [facility] Comment on above: Performed By: #### T SH, BMP #### [facility] [address] [place] [address] Dr. Marilin Rothman Lymphocytes/100 WBC (Bld) 10.1 % Critically low 20.5-60.0 [facility] Comment on above: Performed By: #### T SH, BMP #### [facility] [address] [place] [address] Dr. Marilin Rothman MANUAL DIFF REQ NO Normal [facility] Comment on above: Performed By: #### T SH, BMP #### [facility] [address] [place] [address] Dr. Marilin Rothman MCH (RBC) [Entitic mass] 32.8 pg Normal 25.9-34.0 [facility] Comment on above: Performed By: #### T SH, BMP #### [facility] [address] [place] [address] Dr. Marilin Rothman MCHC (RBC) [Mass/Vol] 34.3 g/dL Normal 29.9-35.2 [facility] Comment on above: Performed By: #### T SH, BMP #### [facility] [address] [place] [address] Dr. Marilin Rothman MCV (RBC) [Entitic vol] 95.7 fL Critically high 80.0-94 .0 [facility] Comment on above: Performed By: #### T SH, BMP #### [facility] [address] [place] [address] Dr. Marilin Rothman MONO # 0.8 103/ul Normal 0.3-0.8 [facility] Comment on above: Performed By: #### T SH, BMP #### [facility] [address] [place] [address] Dr. Marilin Rothman Monocytes/100 WBC (Bld) 8.1 % Normal 1.7-12.0 [facility] Comment on above: Performed By: #### T SH, BMP #### [facility] [address] [place] [address] Dr. Marilin Rothman NEUT # 7.6 103/ul Critically high 1.4-6.5 [facility] Comment on above: Performed By: #### T SH, BMP #### [facility] [address] [place] [address] Dr. Marilin Rothman Neutrophils/100 WBC (Bld) 80.5 % Critically high 43.0-75.0 [facility] Comment on above: Performed By: #### T SH, BMP #### [facility] [address] [address] [address] Marilin Rothman Platelet mean volume (Bld) [Entitic vol] 8.6 fL Critically low 9.5-13.5 [facility] Comment on above: Performed By: #### T SH, BMP #### [facility] [address] [address] [address] Marilin Rothman PLT 237 103/ul Normal 150-450 [facility] Comment on above: Performed By: #### T SH, BMP #### [facility] [address] [place] [address] Dr. Marilin Rothman RBC 3.99 106/ul Critically low 4.70-6.10 [facility] Comment on above: Performed By: #### T SH, BMP #### [facility] [address] [place] [address] Dr. Marilin Rothman WBC 9.4 103/ul Normal 4.0-11.0 [facility] Comment on above: Performed By: #### T SH, BMP #### [facility] [address] [place] [address] Dr. Marilin Rothman PROF CHEM 8 (BAS METB)on Anion gap [Moles/Vol] 7.8 mmol/L Normal [facility] Comment on above: Performed By: #### T SH, BMP #### [facility] [address] [place] [address] Dr. Marilin Rothman Calcium [Mass/Vol] 9.9 mg/dL Normal 8.5-10.1 [facility] Comment on above: Performed By: #### T SH, BMP #### [facility] [address] [place] [address] Dr. Marilin Rothman Chloride [Moles/Vol] 102 mmol/L Normal 98-107 [facility] Comment on above: Performed By: #### T SH, BMP #### [facility] [address] [place] [address] Dr. Marilin Rothman CO2 [Moles/Vol] 31.8 mmol/L Normal 21.0-32.0 [facility] Comment on above: Performed By: #### T SH, BMP #### [facility] [address] [place] [address] Dr. Marilin Rothman Creatinine [Mass/Vol] 1.30 mg/dL Normal 0.70-1.30 [facility] Comment on above: Performed By: #### T SH, BMP #### [facility] [address] [address] [address] Marilin Rothman EGFR-AF BRAZILIAN >60 Normal >=60 [facility] Comment on above: Performed By: #### T SH, BMP #### [facility] [address] [address] [address] Marilin Rothman EGFR-NON AF BRAZILIAN 54 mL/min/1.73m2 Critically low >=60 [facility] Comment on above: Performed By: #### T SH, BMP #### [facility] [address] [place] [address] Dr. Marilin Rothman Glucose [Mass/Vol] 110 mg/dL Critically high 74-106 [facility] Comment on above: Performed By: #### T SH, BMP #### [facility] [address] [place] [address] Dr. Marilin Rothman Potassium [Moles/Vol] 4.6 mmol/L Normal 3.5-5.1 [facility] Comment on above: Performed By: #### T SH, BMP #### [facility] [address] [place] [address] Dr. Marilin Rothman Sodium [Moles/Vol] 137 mmol/L Normal 136-145 [facility] Comment on above: Performed By: #### T SH, BMP #### [facility] [address] [address] [address] Marilin Rothman Urea nitrogen [Mass/Vol] 18.0 mg/dL Normal 7.0-18.0 [facility] Comment on above: Performed By: #### T SH, BMP #### [facility] [address] [address] [address] Marilin Rothman Urea nitrogen/Creatinine [Mass ratio] 13.8 mg/mg Normal [facility] Comment on above: Performed By: #### T ALEXANDER, BMP #### [facility] [address] [place] [address] Dr. Marilin Rothman TSHon 01-13-2023 TSH 0.951 uIU/mL Normal 0.358-3.740 [facility] Comment on above: Performed By: #### T ALEXANDER, BMP #### [facility] [address] [place] [address] Dr. Marilin Rothman XR LSPINE W_OBLS AND [...] by: BRADY MORRIS Date: 2022-10-27 17:11 Normal [facility] CBC AUTO DIFFon 07-27-2022 BASO # 0.1 103/ul Normal 0.0-0.1 [facility] Comment on above: Performed By: #### T ALEXANDER, BMP #### [facility] [address] [place] [address] Dr. Marilin Rothman Basophils/100 WBC (Bld) 0.8 % Normal 0.2-2.0 [facility] Comment on above: Performed By: #### T ALEXANDER, BMP #### [facility] [address] [place] [address] Dr. Marilin Rothman EO # 0.1 103/ul Normal 0.0-0.7 [facility] Comment on above: Performed By: #### T ALEXANDER, BMP #### [facility] [address] [address] [address] Marilin Rothman Eosinophils/100 WBC (Bld) 2.2 % Normal 0.9-7.0 [facility] Comment on above: Performed By: #### T SH, BMP #### [facility] [address] [place] [address] Dr. Marilin Rothman Erythrocyte distribution width (RBC) [Ratio] 13.2 % Normal 11.0-15.0 [facility] Comment on above: Performed By: #### T SH, BMP #### [facility] [address] [place] [address] Dr. Marilin Rothman Hematocrit (Bld) [Volume fraction] 38.6 % Critically low 42.0-54.0 [facility] Comment on above: Performed By: #### T SH, BMP #### [facility] [address] [place] [address] Dr. Marilin Rothman Hemoglobin (Bld) [Mass/Vol] 12.5 g/dL Critically low 14.0-18.0 [facility] Comment on above: Performed By: #### T SH, BMP #### [facility] [address] [place] [address] Dr. Marilin Rothman IG # 0.06 10e3/ul Critically high 0.00-0.03 [facility] Comment on above: Performed By: #### T SH, BMP #### [facility] [address] [place] [address] Dr. Marilin Rothman IG % 1.0 % Critically high 0.0-0.5 [facility] Comment on above: Performed By: #### T SH, BMP #### [facility] [address] [place] [address] Dr. Marilin Rothman LYMPH # 1.0 103/ul Critically low 1.2-3.8 [facility] Comment on above: Performed By: #### T SH, BMP #### [facility] [address] [place] [address] Dr. Marilin Rothman Lymphocytes/100 WBC (Bld) 15.9 % Critically low 20.5-60.0 [facility] Comment on above: Performed By: #### T SH, BMP #### [facility] [address] [place] [address] Dr. Marilin Rothman MANUAL DIFF REQ NO Normal [facility] Comment on above: Performed By: #### T SH, BMP #### [facility] [address] [place] [address] Dr. Marilin Rothman MCH (RBC) [Entitic mass] 32.2 pg Normal 25.9-34.0 [facility] Comment on above: Performed By: #### T SH, BMP #### [facility] [address] [place] [address] Dr. Marilin Rothman MCHC (RBC) [Mass/Vol] 32.4 g/dL Normal 29.9-35.2 [facility] Comment on above: Performed By: #### T SH, BMP #### [facility] [address] [place] [address] Dr. Marilin Rothman MCV (RBC) [Entitic vol] 99.5 fL Critically high 80.0-94 .0 [facility] Comment on above: Performed By: #### T SH, BMP #### [facility] [address] [place] [address] Dr. Marilin Rothman MONO # 0.8 103/ul Normal 0.3-0.8 [facility] Comment on above: Performed By: #### T SH, BMP #### [facility] [address] [place] [address] Dr. Marilin Rothman Monocytes/100 WBC (Bld) 12.9 % Critically high 1.7-12. 0 [facility] Comment on above: Performed By: #### T SH, BMP #### [facility] [address] [place] [address] Dr. Marilin Rothman NEUT # 4.2 103/ul Normal 1.4-6.5 [facility] Comment on above: Performed By: #### T SH, BMP #### [facility] [address] [place] [address] Dr. Marilin Rothman Neutrophils/100 WBC (Bld) 67.2 % Normal 43.0-75.0 [facility] Comment on above: Performed By: #### T SH, BMP #### [facility] [address] [address] [address] Marilin Rothman Platelet mean volume (Bld) [Entitic vol] 9.3 fL Critically low 9.5-13.5 [facility] Comment on above: Performed By: #### T SH, BMP #### [facility] [address] [address] [address] Marilin Rothman PLT 260 103/ul Normal 150-450 [facility] Comment on above: Performed By: #### T SH, BMP #### [facility] [address] [address] [address] Marilin Rothman RBC 3.88 106/ul Critically low 4.70-6.10 [facility] Comment on above: Performed By: #### T SH, BMP #### [facility] [address] [place] [address] Dr. Marilin Rothman WBC 6.3 103/ul Normal 4.0-11.0 [facility] Comment on above: Performed By: #### T SH, BMP #### [facility] [address] [place] [address] Dr. Marilin Rothman LIPID PROFILEon 07-27-2022 CHOL-HDL RATIO NORM SEE BELOW Normal [facility] Comment on above: Result Comment: 3.3 - 4.4 LOW RISK 4.4 - 7.1 AVERAGE RISK 7.1 - 11.0 MODERATE RISK >11.0 HIGH RISK Performed By: #### T SH, BMP #### [facility] [address] [place] [address] Dr. Marilin Rothman Cholesterol [Mass/Vol] 155 mg/dL Normal <=200 [facility] Comment on above: Performed By: #### T SH, BMP #### [facility] [address] [place] [address] Dr. Marilin Rothman Cholesterol in HDL [Mass/Vol] 76 mg/dL Critically high 40-60 [facility] Comment on above: Performed By: #### T SH, BMP #### [facility] [address] [place], [place] [id number] Dr. Marilin Rothman Cholesterol in LDL [Mass/Vol] 54.8 mg/dL Normal [facility] Comment on above: Performed By: #### T SH, BMP #### [facility] [address] [address] [address] Marilin Rothman Cholesterol.total/Grace sterol in HDL [Mass ratio] 2.0 {ratio} Normal [facility] Comment on above: Performed By: #### T SH, BMP #### [facility] [address] [address] [address] Marilin Rothman HDL NORMAL > or = 60 mg/dl - LO W CARDIOVASCULAR RISK <40 mg/dl - HIGH CARDIOVASCULAR RISK Normal [facility] Comment on above: Performed By: #### T SH, BMP #### [facility] [address] [place] [address] Dr. Marilin Rothman LDL CALC NORMAL SEE BELOW Normal [facility] Comment on above: Result Comment: <100 mg/dl OPTIMAL 100 - 129 mg/dl NEAR OR ABOVE OPTIMAL 130 - 159 mg/dl BORDERLINE HIGH 160 - 189 mg/dl HIGH >190 mg/dl VERY HIGH Performed By: #### T SH, BMP #### [facility] [address] [place] [address] Dr. Marilin Rothman Triglyceride [Mass/Vol] 121 mg/dL Normal <=150 [facility] Comment on above: Performed By: #### T SH, BMP #### [facility] [address] [place] [address] Dr. Marilin Rothman VLDL CALC 24.2 mg/dL Normal [facility] Comment on above: Performed By: #### T SH, BMP #### [facility] [address] [place] [address] Dr. Marilin Rothman LIVER PROFILEon 07-27-2022 Albumin [Mass/Vol] 3.9 g/dL Normal 3.4-5.0 [facility] Comment on above: Performed By: #### T SH, BMP #### [facility] [address] [place] [address] Dr. Marilin Rothman Albumin/Globulin [Mass ratio] 1.2 {ratio} Normal [facility] Comment on above: Performed By: #### T SH, BMP #### [facility] [address] [address] [address] Marilin Rothman ALP [Catalytic activity/Vol] 89 U/L Normal 46-116 [facility] Comment on above: Performed By: #### T SH, BMP #### [facility] [address] [address] [address] Marilin Rothman ALT [Catalytic activity/Vol] 26 U/L Normal 16-63 [facility] Comment on above: Performed By: #### T SH, BMP #### [facility] [address] [address] [address] Marilin Rothman AST [Catalytic activity/Vol] 17 U/L Normal 15-37 [facility] Comment on above: Performed By: #### T SH, BMP #### [facility] [address] [address] [address] Marilin Rothman BILI, CONJUGATED 0.2 mg/dL Normal 0.0-0.2 [facility] Comment on above: Performed By: #### T SH, BMP #### [facility] [address] [address] [address] Marilin Rothman Bilirubin [Mass/Vol] 0.6 mg/dL Normal 0.2-1.0 [facility] Comment on above: Performed By: #### T SH, BMP #### [facility] [address] [address] [address] Marilin Rothman Globulin (S) [Mass/Vol] 3.2 g/dL Normal [facility] Comment on above: Performed By: #### T SH, BMP #### [facility] [address] [address] [address] Marilin Rothman Protein [Mass/Vol] 7.1 g/dL Normal 6.4-8.2 [facility] Comment on above: Performed By: #### T SH, BMP #### [facility] [address] [address] [address] Marilin Rothman PROF CHEM 8 (BAS METB)on Anion gap [Moles/Vol] 13.7 mmol/L Normal [facility] Comment on above: Performed By: #### T SH, BMP #### [facility] [address] [place] [address] Dr. Marilin Rothman Calcium [Mass/Vol] 9.3 mg/dL Normal 8.5-10.1 [facility] Comment on above: Performed By: #### T SH, BMP #### [facility] [address] [place] [address] Dr. Marilin Rothman Chloride [Moles/Vol] 96 mmol/L Critically low 98-107 [facility] Comment on above: Performed By: #### T SH, BMP #### [facility] [address] [place] [address] Dr. Marilin Rothman CO2 [Moles/Vol] 25.9 mmol/L Normal 21.0-32.0 [facility] Comment on above: Performed By: #### T SH, BMP #### [facility] [address] [place] [address] Dr. Marilin Rothman Creatinine [Mass/Vol] 1.10 mg/dL Normal 0.70-1.30 [facility] Comment on above: Performed By: #### T SH, BMP #### [facility] [address] [place] [address] Dr. Marilin Rothman EGFR-AF BRAZILIAN >60 Normal >=60 [facility] Comment on above: Performed By: #### T SH, BMP #### [facility] [address] [place] [address] Dr. Marilin Rothman EGFR-NON AF BRAZILIAN >60 Normal >=60 [facility] Comment on above: Performed By: #### T SH, BMP #### [facility] [address] [place] [address] Dr. Marilin Rothman Glucose [Mass/Vol] 93 mg/dL Normal 74-106 [facility] Comment on above: Performed By: #### T SH, BMP #### [facility] [address] [place] [address] Dr. Marilin Rothman Potassium [Moles/Vol] 4.6 mmol/L Normal 3.5-5.1 [facility] Comment on above: Performed By: #### T SH, BMP #### [facility] [address] [place] [address] Dr. Marilin Rothman Sodium [Moles/Vol] 131 mmol/L Critically low 136-145 [facility] Comment on above: Performed By: #### T SH, BMP #### [facility] [address] [place] [address] Dr. Marilin Rothman Urea nitrogen [Mass/Vol] 14.0 mg/dL Normal 7.0-18.0 [facility] Comment on above: Performed By: #### T SH, BMP #### [facility] [address] [place] [address] Dr. Marilin Rothman Urea nitrogen/Creatinine [Mass ratio] 12.7 mg/mg Normal [facility] Comment on above: Performed By: #### T ALEXANDER, BMP #### [facility] [address] [place] [address] Dr. Marilin Rothman TSHon 07-27-2022 TSH 1.933 uIU/mL Normal 0.358-3.740 [facility] Comment on above: Performed By: #### T ALEXANDER, BMP #### [facility] [address] [place] [address] Dr. Marilin Rothman VITAMIN D 25 OHon 07-27-2022 VIT D 25-OH 85.4 ng/mL Normal [facility] Comment on above: Performed By: #### T ALEXANDER, BMP #### [facility] [address] [place] [address] Dr. Marilin Rothman VIT D RANGES SEE BELOW Normal [facility] Comment on above: Result Comment: <20 ng/mL Vit D deficient 20 - <30 ng/mL Vit D insufficient 30 - 100 ng/mL Vit D sufficient >100 ng/mL Potential Toxicity Performed By: #### T ALEXANDER, BMP #### [facility] [address] [place] [address] Dr. Marilin Rothman ACID FAST SMEAR AND CXon Acid Fast Culture Negative Normal [facility] Comment on above: Result Comment: No a amos fast bacilli isolated after 6 weeks. Performed By: #### T SH, BMP #### [facility] [address] [address] [address] Marilin Rothman Acid Fast Smear Negative Normal [facility] Comment on above: Performed By: #### T SH, BMP #### [facility] [address] [place] [address] Dr. Marilin Rothman AFB Specimen Processing Direct Inoculation Normal [facility] Comment on above: Performed By: #### T SH, BMP #### [facility] [address] [place] [address] Dr. Marilin Rothman FUNGAL CULTUREon 04-09-2022 Fungus (Mycology) Culture Final report [facility] Comment on above: Performed By: #### C XFUN #### [facility] [address] [place] [address] Dr. Marilin Rothman Fungus Stain Final report Normal [facility] Comment on above: Performed By: #### C XFUN #### [facility] [address] [place] [address] Dr. Marilin Rothman Result 1 Comment Normal [facility] Comment on above: Result Comment: RITA/ Calcofluor preparation: no fungus observed. Performed By: #### C XFUN #### [facility] [address] [place] [address] Dr. Marilin Rothman Result Comment: No y east or mold isolated after 4 weeks. LOWER RESPIRATORY CULTUREon 03-14-2022 Lower Respiratory Culture Final report Normal [facility] Comment on above: Performed By: #### C XLORES #### [facility] [address] [place] [address] Dr. Marilin Rothman Result 1 Comment Normal [facility] Comment on above: Result Comment: Rout ine respiratory carlito Performed By: #### C XLORES #### [facility] [address] [place] [address] Dr. Marilin Rothman CYTOLOGYon 03-11-2022 SENT TO REF LAB 03/12/22 [facility] Comment on above: Performed By: #### C YTO #### [facility] [address] [address] [address] Marilin OCASIOon 03-11-2022 COMMENTS NO ORGANISMS OBSERVED Normal [facility] Comment on above: Performed By: #### G STAIN #### [facility] [address] [address] [address] Marilin Rothman DIPHTHEROIDS Normal [facility] Comment on above: Performed By: #### G STAIN #### [facility] [address] [place] [address] Dr. Marilin Rothman EPITHELIALS FEW Normal [facility] Comment on above: Performed By: #### G STAIN #### [facility] [address] [address] [address] Marilin Rothman FUNGAL ELEMENTS Normal [facility] Comment on above: Performed By: #### G STAIN #### [facility] [address] [place] [address] Dr. Marilin Rothman GRAM NEG BACILLI Normal [facility] Comment on above: Performed By: #### G STAIN #### [facility] [address] [place] [address] Dr. Marilin MCCORMACK NEG DIPPLOCOCCI Normal [facility] Comment on above: Performed By: #### G STAIN #### [facility] [address] [place] [address] Dr. Marilin MCCORMACK POS BACILLI Normal [facility] Comment on above: Performed By: #### G STAIN #### [facility] [address] [place] [address] Dr. Marilin Rothman GRAM POSITIVE COCCI Normal [facility] Comment on above: Performed By: #### G STAIN #### [facility] [address] [place] [address] Dr. Marilin Rothman GRAM STAIN SOURCE R. LOWER LOBE LAVAGE Normal [facility] Comment on above: Performed By: #### G STAIN #### [facility] [address] [place] [address] Dr. Marilin Rothman GS_DIPTH Normal [facility] Comment on above: Performed By: #### G STAIN #### [facility] [address] [place] [address] Dr. Marilin Rothman WBC FEW Normal [facility] Comment on above: Performed By: #### G STAIN #### [facility] [address] [place] [address] Dr. Marilin Rothman IMMUNOGLOBULIN E, TOTALon Immunoglobulin E, Total 129 IU/mL Normal 6-495 [facility] Comment on above: Performed By: #### I GETOT #### [facility] [address] [place] [address] Dr. Marilin Rothman CBC AUTO DIFFon 03-01-2022 BASO # 0.1 103/ul Normal 0.0-0.1 [facility] Comment on above: Performed By: #### T SH, BMP #### [facility] [address] [place] [address] Dr. Marilin Rothman Basophils/100 WBC (Bld) 0.9 % Normal 0.2-2.0 [facility] Comment on above: Performed By: #### T SH, BMP #### [facility] [address] [place] [address] Dr. Marilin Rothman EO # 0.7 103/ul Normal 0.0-0.7 [facility] Comment on above: Performed By: #### T SH, BMP #### [facility] [address] [place] [address] Dr. Marilin Rothman Eosinophils/100 WBC (Bld) 9.2 % Critically high 0.9-7.0 [facility] Comment on above: Performed By: #### T SH, BMP #### [facility] [address] [place] [address] Dr. Marilin Rothman Erythrocyte distribution width (RBC) [Ratio] 13.0 % Normal 11.0-15.0 [facility] Comment on above: Performed By: #### T SH, BMP #### [facility] [address] [place] [address] Dr. Marilin Rothman Hematocrit (Bld) [Volume fraction] 39.5 % Critically low 42.0-54.0 [facility] Comment on above: Performed By: #### T SH, BMP #### [facility] [address] [address] [address] Marilin Rothman Hemoglobin (Bld) [Mass/Vol] 13.0 g/dL Critically low 14.0-18.0 [facility] Comment on above: Performed By: #### T SH, BMP #### [facility] [address] [place] [address] Dr. Marilin Rothman IG # 0.03 10e3/ul Normal 0.00-0.03 [facility] Comment on above: Performed By: #### T SH, BMP #### [facility] [address] [place] [address] Dr. Mrailin Rothman IG % 0.4 % Normal 0.0-0.5 [facility] Comment on above: Performed By: #### T SH, BMP #### [facility] [address] [place] [address] Dr. Marilin Rothman LYMPH # 1.1 103/ul Critically low 1.2-3.8 [facility] Comment on above: Performed By: #### T SH, BMP #### [facility] [address] [place] [address] Dr. Marilin Rothman Lymphocytes/100 WBC (Bld) 14.2 % Critically low 20.5-60.0 [facility] Comment on above: Performed By: #### T SH, BMP #### [facility] [address] [place] [address] Dr. Marilin Rothman MANUAL DIFF REQ NO Normal [facility] Comment on above: Performed By: #### T SH, BMP #### [facility] [address] [place] [address] Dr. Marilin Rothman MCH (RBC) [Entitic mass] 32.2 pg Normal 25.9-34.0 [facility] Comment on above: Performed By: #### T SH, BMP #### [facility] [address] [place] [address] Dr. Marilin Rothman MCHC (RBC) [Mass/Vol] 32.9 g/dL Normal 29.9-35.2 [facility] Comment on above: Performed By: #### T SH, BMP #### [facility] [address] [place] [address] Dr. Marilin Rothman MCV (RBC) [Entitic vol] 97.8 fL Critically high 80.0-94 .0 [facility] Comment on above: Performed By: #### T SH, BMP #### [facility] [address] [place] [address] Dr. Marilin Rothman MONO # 0.9 103/ul Critically high 0.3-0.8 [facility] Comment on above: Performed By: #### T SH, BMP #### [facility] [address] [place] [address] Dr. Marilin Rothman Monocytes/100 WBC (Bld) 11.8 % Normal 1.7-12.0 [facility] Comment on above: Performed By: #### T SH, BMP #### [facility] [address] [place] [address] Dr. Marilin Rothman NEUT # 4.7 103/ul Normal 1.4-6.5 [facility] Comment on above: Performed By: #### T SH, BMP #### [facility] [address] [place] [address] Dr. Marilin Rothman Neutrophils/100 WBC (Bld) 63.5 % Normal 43.0-75.0 [facility] Comment on above: Performed By: #### T SH, BMP #### [facility] [address] [place] [address] Dr. Marilin Rothman Platelet mean volume (Bld) [Entitic vol] 8.7 fL Critically low 9.5-13.5 [facility] Comment on above: Performed By: #### T SH, BMP #### [facility] [address] [place] [address] Dr. Marilin Rothman PLT 250 103/ul Normal 150-450 [facility] Comment on above: Performed By: #### T SH, BMP #### [facility] [address] [place] [address] Dr. Marilin Rothman RBC 4.04 106/ul Critically low 4.70-6.10 [facility] Comment on above: Performed By: #### T SH, BMP #### [facility] [address] [place] [address] Dr. Marilin Rothman WBC 7.5 103/ul Normal 4.0-11.0 [facility] Comment on above: Performed By: #### T SH, BMP #### [facility] [address] [place] [address] Dr. Marilin Rothman PROTIMEon 03-01-2022 INR Coag (PPP) [Relative time] 0.97 {INR} Normal [facility] Comment on above: Performed By: #### T SH, BMP #### [facility] [address] [place] [address] Dr. Marilin Rothman INR GUIDELINES SEE BELOW Normal [facility] Comment on above: Result Comment: TOAN RED INR: 2.0 - 3.0 CONDITIONS NOT LISTED BELOW 2.5 - 3.5 FOR PROSTHETIC HEART VALVE REPLACEMENT 2.5 - 3.5 RECURRENT THROMBOSIS Performed By: #### T SH, BMP #### [facility] [address] [place] [address] Dr. Marilin Rothman PT Coag (PPP) [Time] 10.5 s Normal 9.0-11.6 [facility] Comment on above: Performed By: #### T SH, BMP #### [facility] [address] [place] [address] Dr. Marilin Rothman PTTon 03-01-2022 aPTT Coag (Bld) [Time] 27.5 s Normal 22.3-36.2 [facility] Comment on above: Performed By: #### T SH, BMP #### [facility] [address] [place] [address] Dr. Marilin Rothman ASPERGILLUS AB, QUANTITATIVE DIDon 02-28-2022 Aspergillus flavus Negative Normal Neg:<1:1 [facility] Comment on above: Performed By: #### T SH, BMP #### [facility] [address] [place] [address] Dr. Marilin Rothman Aspergillus fumigatus Negative Normal Neg:<1:1 [facility] Comment on above: Performed By: #### T SH, BMP #### [facility] [address] [place] [address] Dr. Marilin Rothman Aspergillus niger Negative Normal Neg:<1:1 [facility] Comment on above: Performed By: #### T SH, BMP #### [facility] [address] [place] [address] Dr. Marilin Rothman ANTI NEUTROPHIL CYTOPLASMIC AB (ANCA) PRon 02-26-2022 Antimyeloperoxidase (MPO) Abs <9.0 Normal 0.0-9.0 [facility] Comment on above: Result Comment: Perf ormed at: BN Performed By: #### A NCAP #### [facility] [address] [place] [address] Dr. Marilin Rothman Antiproteinase 3 (OH-3) Abs <3.5 Normal 0.0-3.5 [facility] Comment on above: Result Comment: Perf ormed at: BN Performed By: #### A NCAP #### [facility] [address] [place] [address] Dr. Marilin Rothman Atypical pANCA <1:20 Normal Neg:<1:20 [facility] Comment on above: Result Comment: The atypical pANCA pattern has been observed in a significant percentage of patients with ulcerative colitis, primary sclerosing cholangitis and autoimmune hepatitis. Performed at: CB Performed By: #### A NCAP #### [facility] [address] [place] [address] Dr. Marilin Rothman Cytoplasmic (C-ANCA) <1:20 Normal Neg:<1:20 [facility] Comment on above: Result Comment: Perf ormed at: CB Performed By: #### A NCAP #### [facility] [address] [place] [address] Dr. Marilin Rothman Perinuclear (P-ANCA) <1:20 Normal Neg:<1:20 [facility] Comment on above: Result Comment: The presence of positive fluorescence exhibiting P-ANCA or C-ANCA patterns alone is not specific for the diagnosis of Antwan's Granulomatosis (WG) or microscopic polyangiitis. Decisions about treatment should not be based solely on ANCA IFA results. The International ANCA Group Consensus recommends follow up testing of positive sera with both OH-3 and MPO-ANCA enzyme immunoassays. As many as 5% serum samples are positive only by EIA. Ref. AM J Clin Pathol 1999;111:507-513. Performed at: CB Performed By: #### A NCAP #### [facility] [address] LUNG CANCER SCREENINGon [...] BRADY MORRIS Date: 2022-02-24 11:30 Normal [facility] PROF CHEM 8 (BAS METB)on Anion gap [Moles/Vol] 8.6 mmol/L Normal [facility] Comment on above: Performed By: #### B MP #### [facility] [address], [place] [address] Dr. Marilin Rothman Calcium [Mass/Vol] 9.0 mg/dL Normal 8.5-10.1 [facility] Comment on above: Performed By: #### B MP #### [facility] [address] [address] [address] Marilin Rothman Chloride [Moles/Vol] 100 mmol/L Normal 98-107 [facility] Comment on above: Performed By: #### B MP #### [facility] [address] [address] [address] Marilin Rothman CO2 [Moles/Vol] 30.5 mmol/L Normal 21.0-32.0 [facility] Comment on above: Performed By: #### B MP #### [facility] [address] [address] [address] Marilin Rothman Creatinine [Mass/Vol] 1.35 mg/dL Critically high 0.70-1.30 [facility] Comment on above: Performed By: #### B MP #### [facility] [address] [address] [address] Marilin Rothman EGFR-AF BRAZILIAN >60 Normal >=60 [facility] Comment on above: Performed By: #### B MP #### [facility] [address] [address] [address] Marilin Rothman EGFR-NON AF BRAZILIAN 52 mL/min/1.73m2 Critically low >=60 [facility] Comment on above: Performed By: #### B MP #### [facility] [address] [address] [address] Marilin Rothman Glucose [Mass/Vol] 100 mg/dL Normal 74-106 [facility] Comment on above: Performed By: #### B MP #### [facility] [address] [address] [address] Marilin Rothman Potassium [Moles/Vol] 4.1 mmol/L Normal 3.5-5.1 [facility] Comment on above: Performed By: #### B MP #### [facility] [address] [address] [address] Marilin Rothman Sodium [Moles/Vol] 135 mmol/L Critically low 136-145 [facility] Comment on above: Performed By: #### B MP #### [facility] [address] [address] [address] Marilin Rothman Urea nitrogen [Mass/Vol] 13.0 mg/dL Normal 7.0-18.0 [facility] Comment on above: Performed By: #### B MP #### [facility] [address], [place] [address] Dr. Marilin Rothman Urea nitrogen/Creatinine [Mass ratio] 9.6 mg/mg Normal [facility] Comment on above: Performed By: #### B MP #### [facility] [address], [place] [address] Dr. Marilin Rothman Cardiovascular Lab Reporton 08-22-2020 Cardiovascular Lab Report [facility] Patient Name: [facility] MR #: [id number] Physician: Sanket Reyes M.D. Department of Service Date: 08/21/2020 Medicine Birthdate: 1950 Division of Room #: Cardiology Adult Cardiovascular Services [place] [address] Cardiovascular Laboratory Report FILM TESTS CHECKER: Aron Anderson M.D. FINAL IMPRESSION: Successful angioplasty, [...] inner cannula was then exchanged for a 5-Nepalese sheath. Through the 5-Nepalese sheath, a Uni-Flush catheter was introduced into the abdominal aorta and the aortic bifurcation was traversed using a 0.035 hydrophilic guidewire. Next, the catheter was then placed in the right femoral artery and angiography was performed. A guidewire exchange was then performed removing the catheter and sheath and replacing these with a 6-Nepalese Renaldo through which a NaviCross was introduced [...] exchanged for an Renaldo sheath with a TuSpaciousy-Kenroy Adapter. Through this, a 6 mm x [...] was achieved. Final angiography was performed. A 6-Nepalese Angio-Seal was deployed. Adequate hemostasis was achieved. [...] P/Sanket Reyes M.D. Date Trans: 08/22/2020 02:59 Soto/noreen [id number] cc: Pool Garcia M.D. [address] [facility] [address] Normal [facility] Cardiovascular Lab Reporton 05-06-2020 Cardiovascular Lab Report [facility] Patient Name: Huy Osei [facility] MR #: [id number] Physician: Aron Daniel of [facility] Medicine Service Date: 05/05/2020 Division of Birthdate: 1950 Cardiology Room #: 3CD [id number] Adult Cardiovascular Services [address] [place] [address] Cardiovascular Laboratory Report INDICATION: The patient is [...] right superficial femoral artery. 6. Use of [place] IVUS-guided reentry catheter. 7. 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 METHODS: Procedure was explained to the patient with risks and benefits. He signed informed consent. He was brought to lab aide in a fasting state. The left groin area was prepped and draped in usual fashion. Using ultrasound guidance and micropuncture technique, the left common femoral artery was accessed. The inner cannula was advanced. Limited left femoral angiography was performed followed by upsizing to a 6-Nepalese x 11 cm sheath. Next, a 5-Nepalese Uni-Flush catheter was advanced and placed in the distal abdominal aorta. An angled Glidewire was then used to cross the aortoiliac bifurcation and the catheter was advanced to the level of the right common femoral artery and then over a Magic Torque wire, this was exchanged along with the access sheath to a 6-Nepalese x 55 cm Renaldo sheath. Right lower [...] At that time, we advanced an angled [place] catheter through the antegrade sheath over a straight Glidewire and we crossed subintimally proximally and advanced to the proximal to mid segment of the SFA. We advanced a structural technician 5 x 40 mm balloon and used that balloon to perform reverse CART technique with multiple inflations using that balloon as well as an [place] Quantum [place] 3.0 x 15 mm noncompliant balloon advanced through the retrograde wire for CART technique. Repeated multiple inflations and multiple attempts were performed at multiple levels. However, we were not able to join the 2 subintimal spaces and therefore, we abandoned this technique. We decided to go with the [place] reentry catheter from the antegrade access. This was then advanced to the subintimal space in the mid SFA over a [place] wire and using the standard technique, we identified under intravascular ultrasound the true lumen and once this was positioned in the 12 o'clock position, the needle was advanced the appropriate amount and after 2 attempts, the [place] wire was able to advance into the true lumen. This was confirmed as the wire came in parallel with the retrograde wire. However, at this point, while trying to remove the [place] catheter, the [place] wire got kinked and entangled, and we were not able to retrieve the [place] catheter over the wire and we had to remove the both wire and [place] catheter assembly together and therefore, lost access into the true lumen. We repeated this process again and we are able to advance the [place] catheter into position and multiple attempts at this point were made to gain access into the true lumen, however, those failed and we had to retrieve the [place] catheter and terminate the procedure at this time. The [place] catheter and the Renaldo sheath were removed [...] He will be admitted for overnight observation. CHEMIST WATER PURIFICATION: Shahzad Caballero MD. TOTAL FLUORO TIME: 101.28 [...] Anderson M.D. Date Trans: 05/06/2020 05:57 A/noreen [id number] cc: Pool Garcia M.D. [address] [place] [address] Normal [facility] APTTon 04-17-2020 aPTT Coag (Bld) [Time] 27.5 s Normal 25.0-35.0 Th e [facility] Comment on above: Order Comment: This order is a replacement of the rejected order with accession [id number]. Result Comment: ALL RESULTS MUST BE INTERPRETED [...] PURPOSE. Performed By: #### 6 2586 #### [facility] [address] [place] [address], [facility] BASIC METABOLIC PANELon 03-25 Calcium [Mass/Vol] 8.4 mg/dL Low 8.6-10.3 [facility] Comment on above: Order Comment: No: D o not add to previous draw Performed By: #### 6 2586 #### [facility] [address] [facility] [address], [facility] Chloride [Moles/Vol] 98 mmol/L Normal 98-107 [facility] Comment on above: Order Comment: No: D o not add to previous draw Performed By: #### 6 2586 #### [facility] [address] [place] [address], [place] CO2 [Moles/Vol] 25 mmol/L Normal 21-31 [facility] Comment on above: Order Comment: No: D o not add to previous draw Performed By: #### 6 2586 #### [facility] [address] [place] [address], [place] Creatinine [Mass/Vol] 1.26 mg/dL Normal 0.70-1.30 [facility] Comment on above: Order Comment: No: D o not add to previous draw Performed By: #### 6 2586 #### [facility] [address] [place] [address], [place] GFR/1.73 sq M predicted among blacks MDRD (S/P/Bld) [Vol rate/Area] mL/min/{1.73_m2} Normal >60 [facility] Comment on above: Order Comment: No: D o not add to previous draw Result Comment: Calc ulation may not be valid for patients over 70 years Performed By: #### 6 2586 #### [facility] [address] [place] [address], [place] GFR/1.73 sq M predicted among non-blacks MDRD (S/P/Bld) [Vol rate/Area] 56 ml/min/1.73sq m Abnormal >60 [facility] Comment on above: Order Comment: No: D o not add to previous draw Result Comment: Calc ulation may not be valid for patients over 70 years Performed By: #### 6 2586 #### [facility] [address] [place] [address], [place] Glucose [Mass/Vol] 123 mg/dL High 70-100 [facility] Comment on above: Order Comment: No: D o not add to previous draw Performed By: #### 6 2586 #### [facility] [address] [place] [address], [place] Potassium [Moles/Vol] 3.6 mmol/L Normal 3.5-5.1 [facility] Comment on above: Order Comment: No: D o not add to previous draw Performed By: #### 6 2586 #### [facility] [address] [place] [address], [place] Sodium [Moles/Vol] 129 mmol/L Low 136-145 [facility] Comment on above: Order Comment: No: D o not add to previous draw Performed By: #### 6 2586 #### [facility] [address] Urea nitrogen [Mass/Vol] 14 mg/dL Normal 7-25 [facility] Comment on above: Order Comment: No: D o not add to previous draw Performed By: #### 6 2586 #### [facility] [address] [place] [address], [facility] CBC COMPLETE BLOOD COUNTon 04-17-2020 Erythrocyte distribution width (RBC) [Ratio] 14.2 % Normal 11.5-15.0 [facility] Comment on above: Order Comment: No: D o not add to previous draw Performed By: #### 6 2586 #### [facility] [address] [facility] [address], [facility] Hematocrit (Bld) [Volume fraction] 32.2 % Low 39.0-50.0 [facility] Comment on above: Order Comment: No: D o not add to previous draw Performed By: #### 6 2586 #### [facility] [address] [place] [address], [facility] Hemoglobin (Bld) [Mass/Vol] 10.8 g/dL Low 13.0-17.0 [facility] Comment on above: Order Comment: No: D o not add to previous draw Performed By: #### 6 2586 #### [facility] [address] [place] [address], [facility] MCH (RBC) [Entitic mass] 32.7 pg Normal 27.0-33.0 [facility] Comment on above: Order Comment: No: D o not add to previous draw Performed By: #### 6 2586 #### [facility] [address] [place] [address], [facility] MCHC (RBC) [Mass/Vol] 33.5 g/dL Normal 32.0-35.0 [facility] Comment on above: Order Comment: No: D o not add to previous draw Performed By: #### 6 2586 #### [facility] [address] [place] [address], [facility] MCV (RBC) [Entitic vol] 97.6 fL Normal 82.0-98.0 T [facility] Comment on above: Order Comment: No: D o not add to previous draw Performed By: #### 6 2586 #### [facility] [address] [facility] [place] [address], [facility] Nucleated RBC/100 WBC (Bld) [Ratio] 0 % Normal 0-0 [facility] Comment on above: Order Comment: No: D o not add to previous draw Performed By: #### 6 2586 #### [facility] [address] [facility] [place] [address], [facility] PLAT CNT 217 10*3/uL Normal 150-400 [facility] Comment on above: Order Comment: No: D o not add to previous draw Performed By: #### 6 2586 #### [facility] [address] [facility] [place] [address], [facility] RBC (Bld) [#/Vol] 3.30 10*6/uL Low 4.20-5.70 [facility] Comment on above: Order Comment: No: D o not add to previous draw Performed By: #### 6 2586 #### [facility] [address] [facility] [place] [address], [facility] WBC (Bld) [#/Vol] 7.83 10*3/uL Normal 4.00-10.60 [facility] Comment on above: Order Comment: No: D o not add to previous draw Performed By: #### 6 2586 #### [facility] [address] [place] [address], [facility] CT ABDOMEN AND PELVIS WO CON TRASTon 04-17-2020 CT ABDOMEN AND PELVIS WO CONTRAST [facility] Department of Radiology [address] [place] [phone] Patient Name: HUY OSEI : 1950 Sex: M Age: Race: White Pt. Location: [address] [place] [address] Patient Status: O Ordered Date: 04/17/2020 12:55:00 [...] reports Electronically signed: Eliud Mcguire. Transcribed by: [email or web address], User Resident: ALEXYS NELSON Electronically Signed by: ELIUD MCGUIRE @ 04/17/2020 02:34 AM I personally read this/these film(s) with this resident Normal [facility] Comment on above: Order Comment: Hemat alyssa, s/p cardiac cath, now hypotensive, r/o retroperitoneal bleed. Cardiovascular Lab Reporton 04-17-2020 Cardiovascular Lab Report [facility] Patient Name: Huy Osei [facility] MR #: [id number] Physician: Aorn Mac M.D. Medicine Service Date: 04/16/2020 Division of Birthdate: 1950 Cardiology Room #: 3AB [id number] Adult Cardiovascular Services [place] [address] Cardiovascular Laboratory Report INDICATION: Huy Osei is [...] signed informed consent. He was brought to lab aide in a fasting state. The left groin area was prepped and draped in usual fashion. Using micropuncture technique and ultrasound guidance, the left common femoral artery was accessed. The inner cannula was advanced, limited femoral angiography was performed followed by upsizing to a 5-Nepalese x 11 cm sheath. Left lower extremity angiography was performed down to the level of the foot. A 5-Nepalese UniFlush catheter was advanced and placed in [...] the catheter and access sheath to a 6-Nepalese Renaldo sheath. Using an angled Glidewire mounted [...] retracted and removed and exchanged to a 6-Nepalese x 11 cm sheath. The patient tolerated [...] Anderson M.D. Date Trans: 04/17/2020 06:23 A/noreen [id number] Normal [facility] LACTATE BLOODon 04-17-2020 Lactate [Moles/Vol] 0.9 mmol/L Normal 0.5-2.2 [facility] Comment on above: Order Comment: No: D o not add to previous draw Performed By: #### 6 2586 #### [facility] [address] PERFUSION BLOOD PANELon 03-25 BASE EXCESS 0.0 mmol/L Normal -2.0-3.0 [facility] Comment on above: Performed By: #### 3 0738 #### [facility] [address] Glucose [Mass/Vol] 118 mg/dL High 70-105 [facility] Comment on above: Performed By: #### 3 0738 #### [facility] [address] [facility] [address] Hematocrit (Bld) [Volume fraction] 36 % Low 38-51 [facility] Comment on above: Performed By: #### 3 0738 #### [facility] [address] Hemoglobin (Bld) [Mass/Vol] 12.2 g/dL Normal 12.0-17.0 [facility] Comment on above: Performed By: #### 3 0738 #### [facility] [address] IONIZED CALCIUM 1.23 mmol/L Normal 1.12-1.32 [facility] Comment on above: Performed By: #### 3 0738 #### [facility] [address] [facility] [address], [facility] Oxygen (Bld) [Partial pressure] 31.0 mm[Hg] Normal [facility] Comment on above: Performed By: #### 3 0738 #### [facility] [address] [place] [address], [facility] PCO2 42.2 mmHg Normal 41.0-51.0 [facility] Comment on above: Performed By: #### 3 0738 #### [facility] [address] [place] [address], [facility] pH (Bld) 7.38 [pH] Normal 7.31-7.41 [facility] Comment on above: Performed By: #### 3 0738 #### [facility] [address] [place] [address], [facility] Potassium [Moles/Vol] 3.9 mmol/L Normal 3.5-4.9 [facility] Comment on above: Performed By: #### 3 0738 #### [facility] [address] [place] [address], [facility] Sodium [Moles/Vol] 132 mmol/L Low 138-146 [facility] Comment on above: Performed By: #### 3 0738 #### [facility] [address] [place] [address], [facility] POC GLUCOSE LABon 04-17-2020 Glucose [Mass/Vol] 126 mg/dL High 70-100 [facility] Comment on above: Performed By: #### 8 5499 #### [facility] [address] [place] [address], [facility] PROTHROMBIN TIMEon 0 INR Coag (PPP) [Relative time] 1.02 {INR} Normal 0.91-1.16 [facility] Comment on above: Order Comment: This order is a replacement of the rejected order with accession [id number]- PATIENT NOT IN ROOM; WENT TO CT. [...] 1995;108:231S-246S. Performed By: #### 6 2586 #### [facility] [address] [facility] [place] [address], [facility] PT Coag (PPP) [Time] 13.4 s Normal 12.3-14.8 [facility] Comment on above: Order Comment: This order is a replacement of the rejected order with accession [id number]- PATIENT NOT IN ROOM; WENT TO CT. Result Comment: ALL RESULTS MUST BE INTERPRETED WITH RESPECT TO BLOOD DRAWING ARTIFACT OR DILUTION ERROR OF ANTICOAGULANT AT THE TIME OF SAMPLING. Performed By: #### 6 2586 #### [facility] [address] [place] [address], [facility] TROPONIN-Ion 04-17-2020 Troponin I.cardiac [Mass/Vol] 0.01 ng/mL Normal 0.00-0.04 [facility] Comment on above: Order Comment: No: D o not add to previous draw Result Comment: REFE RENCE RANGES: 0.00 - 0.04 ng/ml NORMAL 0.05 - 0.50 ng/ml INDETERMINATE > 0.50 ng/ml CONSISTENT WITH AN M.I. Performed By: #### 6 2586 #### [facility] [address] [facility]. [address] TYPE AND SCREENon 04-17-2020 ABO INTERPRETATION A Normal [facility] Comment on above: Performed By: #### 0 2024 #### [facility] [address] [facility] [place] [address], [facility] RH INTERPRETATION Positive Normal [facility] Comment on above: Performed By: #### 0 2024 #### [facility] [address] [facility] [address] C REACTIVE PROTEINon 020 CRP [Mass/Vol] 13.5 mg/L High 0.0-7.0 [facility] Comment on above: Performed By: #### 0 2024 #### [facility] [address] [facility]. [address] CBC W/DIFFon 12-12-2019 ABS BASOPHILS 0.1 10*3/uL Normal 0.0-0.2 [facility] Comment on above: Performed By: #### 5 102, 98321 #### [facility] [address] [facility]. [address] ABS IMM GRANS 0.1 10*3/uL Normal 0.0-0.2 [facility] Comment on above: Performed By: #### 5 010, 42619 #### [facility] [address] [facility]. [address] ABS NEUTROPHILS 4.3 10*3/uL Normal 1.6-7.6 [facility] Comment on above: Performed By: #### 5 010, 52642 #### [facility] [address] [facility] [place] [address], [facility] Basophils/100 WBC (Bld) 0.8 % Normal 0.0-1.0 T he [facility] Comment on above: Performed By: #### 5 010, 55906 #### [facility] [address] Eosinophils (Bld) [#/Vol] 0.3 10*3/uL Normal 0.0-0.5 [facility] Comment on above: Performed By: #### 5 102, 55628 #### [facility] [address] Eosinophils/100 WBC (Bld) 4.6 % Normal 0.0-6.0 [facility] Comment on above: Performed By: #### 5 102, 33069 #### [facility] [address] Erythrocyte distribution width (RBC) [Ratio] 14.0 % Normal 11.5-15.0 [facility] Comment on above: Performed By: #### 102, 65124 #### [facility] [address] Hematocrit (Bld) [Volume fraction] 36.9 % Low 39.0-50.0 [facility] Comment on above: Performed By: #### 5 102, 95454 #### [facility] [address] Hemoglobin (Bld) [Mass/Vol] 12.2 g/dL Low 13.0-17.0 [facility] Comment on above: Performed By: #### 5 102, 42480 #### [facility] [address] IMMATURE GRANS 0.9 % Normal 0.0-1.0 [facility] Comment on above: Performed By: #### 5 102, 46878 #### [facility] [address] Lymphocytes (Bld) [#/Vol] 1.0 10*3/uL Low 1.2-4.0 [facility] Comment on above: Performed By: #### 5 102, 80551 #### [facility] [address] [place] [id number], [facility] Lymphocytes/100 WBC (Bld) 15.5 % Low 20.0-45.0 [facility] Comment on above: Performed By: #### 5 102, 14625 #### [facility] [address] [place] [address], [facility] MCH (RBC) [Entitic mass] 30.9 pg Normal 27.0-33.0 [facility] Comment on above: Performed By: #### 102, 76521 #### [facility] [address] [place] [address], [facility] MCHC (RBC) [Mass/Vol] 33.1 g/dL Normal 32.0-35.0 [facility] Comment on above: Performed By: #### 102, 39399 #### [facility] [address] [place] [address], [facility] MCV (RBC) [Entitic vol] 93.4 fL Normal 82.0-98.0 T he [facility] Comment on above: Performed By: #### 5 102, 63704 #### [facility] [address] [place] [address], [facility] Monocytes (Bld) [#/Vol] 0.7 10*3/uL Normal 0.1-1.0 [facility] Comment on above: Performed By: #### 102, 19732 #### [facility] [address] [place] [address], [facility] MONOS 10.3 % Normal 5.0-12.0 [facility] Comment on above: Performed By: #### 5 102, 63480 #### [facility] [address] [place] [id number], [facility] Neutrophils/100 WBC (Bld) 67.9 % Normal 40.0-72.0 [facility] Comment on above: Performed By: #### 5 0103, 56843 #### [facility] [address] [place] [address], [facility] Nucleated RBC/100 WBC (Bld) [Ratio] 0 % Normal 0-0 [facility] Comment on above: Performed By: #### 5 0103, 68747 #### [facility] [address] [place] [address], [facility] PLAT CNT 215 10*3/uL Normal 150-400 [facility] Comment on above: Performed By: #### 5 0103, 27207 #### [facility] [address] [facility] [place] [address], [facility] RBC (Bld) [#/Vol] 3.95 10*6/uL Low 4.20-5.70 [facility] Comment on above: Performed By: #### 5 010, 19125 #### [facility] [address] [facility] [place] [address], [facility] WBC (Bld) [#/Vol] 6.33 10*3/uL Normal 4.00-10.60 [facility] Comment on above: Performed By: #### 5 0103, 44264 #### [facility] [address] [facility] [address] SEDIMENTATION RATEon 020 SED RATE 30 mm/hr High 0-10 [facility] Comment on above: Performed By: #### 0 2024 #### [facility] [address] [facility] [address] Operative Reporton 0 Operative Report MR#: [id number] S [facility] Pt. Name: Huy Osei Room #: 0C [...] edges using a scalpel followed by a [place] and curette. We debrided down to the [...] Waddell MD Date Trans: 11/26/2019 11:48 P/noreen [id number] Normal [facility] APTTon 11-26-2019 aPTT Coag (Bld) [Time] 29.8 s Normal 25.0-35.0 Th e [facility] Comment on above: Result Comment: ALL RESULTS [...] PURPOSE. Performed By: #### 0 2024 #### [facility] [address] [facility]. [address] POC GLUCOSE LABon 11-26-2019 Glucose [Mass/Vol] 100 mg/dL Normal 70-100 [facility] Comment on above: Performed By: #### 8 6002 #### [facility] [address] [facility]. [address] PROTHROMBIN TIMEon 0 INR Coag (PPP) [Relative time] 0.99 {INR} Normal 0.91-1.16 [facility] Comment on above: Result Comment: ACCC P [...] 1995;108:231S-246S. Performed By: #### 0 2024 #### [facility] [place] [address] PT Coag (PPP) [Time] 13.1 s Normal 12.3-14.8 [facility] Comment on above: Result Comment: ALL RESULTS MUST BE INTERPRETED WITH RESPECT TO BLOOD DRAWING ARTIFACT OR DILUTION ERROR OF ANTICOAGULANT AT THE TIME OF SAMPLING. Performed By: #### 0 2024 #### [facility] [address] VANCOMYCIN TROUGHon 11-12-19 20 VANCOMYCIN TROU 9.0 mcg/mL Normal 5.0-20.0 [facility] Comment on above: Performed By: #### 0 2024 #### [facility] [address] BASIC METABOLIC PANELon 10-24 Calcium [Mass/Vol] 9.1 mg/dL Normal 8.6-10.3 [facility] Comment on above: Order Comment: Yes: Add to Previous draw if able Performed By: #### 0 2024 #### [facility] [address] [place] [address], [place] Chloride [Moles/Vol] 100 mmol/L Normal 98-107 [facility] Comment on above: Order Comment: Yes: Add to Previous draw if able Performed By: #### 0 2024 #### [facility] [address] [place] [address], [place] CO2 [Moles/Vol] 26 mmol/L Normal 21-31 [facility] Comment on above: Order Comment: Yes: Add to Previous draw if able Performed By: #### 0 2024 #### [facility] [address] [place] [address], [place] Creatinine [Mass/Vol] 1.22 mg/dL Normal 0.70-1.30 [facility] Comment on above: Order Comment: Yes: Add to Previous draw if able Performed By: #### 0 2024 #### [facility] [facility] [address] [place] [address], [place] GFR/1.73 sq M predicted among blacks MDRD (S/P/Bld) [Vol rate/Area] mL/min/{1.73_m2} Normal >60 [facility] Comment on above: Order Comment: Yes: Add to Previous draw if able Result Comment: Calc ulation may not be valid for patients over 70 years Performed By: #### 0 2024 #### [facility] [address] [place] [address], [place] GFR/1.73 sq M predicted among non-blacks MDRD (S/P/Bld) [Vol rate/Area] 59 ml/min/1.73sq m Abnormal >60 [facility] Comment on above: Order Comment: Yes: Add to Previous draw if able Result Comment: Calc ulation may not be valid for patients over 70 years Performed By: #### 0 2024 #### [facility] [address] [place] [address], [place] Glucose [Mass/Vol] 97 mg/dL Normal 70-100 [facility] Comment on above: Order Comment: Yes: Add to Previous draw if able Performed By: #### 0 2024 #### [facility] [address] [place] [address], [facility] Potassium [Moles/Vol] 4.0 mmol/L Normal 3.5-5.1 [facility] Comment on above: Order Comment: Yes: Add to Previous draw if able Performed By: #### 0 2024 #### [facility] [address] [place] [address], [facility] Sodium [Moles/Vol] 132 mmol/L Low 136-145 [facility] Comment on above: Order Comment: Yes: Add to Previous draw if able Performed By: #### 0 2024 #### [facility] [address] [place] [address], [facility] Urea nitrogen [Mass/Vol] 17 mg/dL Normal 7-25 [facility] Comment on above: Order Comment: Yes: Add to Previous draw if able Performed By: #### 0 2024 #### [facility] [address] [place] [address], [facility] CBC COMPLETE BLOOD COUNTon - Erythrocyte distribution width (RBC) [Ratio] 14.2 % Normal 11.5-15.0 [facility] Comment on above: Order Comment: Yes: Add to Previous draw if able Performed By: #### 6 2585 #### [facility] [address] [place] [address], [facility] Hematocrit (Bld) [Volume fraction] 32.5 % Low 39.0-50.0 [facility] Comment on above: Order Comment: Yes: Add to Previous draw if able Performed By: #### 6 2585 #### [facility] [address] [place] [id number], [facility] Hemoglobin (Bld) [Mass/Vol] 10.4 g/dL Low 13.0-17.0 [facility] Comment on above: Order Comment: Yes: Add to Previous draw if able Performed By: #### 6 2586 #### [facility] [address] [place] [address], [facility] MCH (RBC) [Entitic mass] 31.7 pg Normal 27.0-33.0 [facility] Comment on above: Order Comment: Yes: Add to Previous draw if able Performed By: #### 6 2586 #### [facility] [address] [place] [address], [facility] MCHC (RBC) [Mass/Vol] 32.0 g/dL Normal 32.0-35.0 [facility] Comment on above: Order Comment: Yes: Add to Previous draw if able Performed By: #### 6 2586 #### [facility] [address] [place] [address], [facility] MCV (RBC) [Entitic vol] 99.1 fL High 82.0-98.0 T he [facility] Comment on above: Order Comment: Yes: Add to Previous draw if able Performed By: #### 6 2586 #### [facility] [address] [place] [address], [facility] Nucleated RBC/100 WBC (Bld) [Ratio] 0 % Normal 0-0 [facility] Comment on above: Order Comment: Yes: Add to Previous draw if able Performed By: #### 6 2586 #### [facility] [address] [place] [address], [facility] PLAT CNT 231 10*3/uL Normal 150-400 [facility] Comment on above: Order Comment: Yes: Add to Previous draw if able Performed By: #### 6 2586 #### [facility] [address] [place] [address], [facility] RBC (Bld) [#/Vol] 3.28 10*6/uL Low 4.20-5.70 [facility] Comment on above: Order Comment: Yes: Add to Previous draw if able Performed By: #### 6 2586 #### [facility] [address] [place], [place] [id number] [place] [address] WBC (Bld) [#/Vol] 8.34 10*3/uL Normal 4.00-10.60 [facility] Comment on above: Order Comment: Yes: Add to Previous draw if able Performed By: #### 6 2586 #### [facility] [address] Operative Reporton 0 Operative Report MR#: [id number] I [facility] Pt. Name: Huy Osei Room #: 6AB [id number] Discharge Date: Birthdate: 1950 OPERATIVE REPORT DATE OF SURGERY: 11/10/2019 SURGEON: Andrews Collier M.D. FILM TESTS CHECKER: Jose Charles MD PREOPERATIVE DIAGNOSIS: Right knee [...] Charles MD Date Trans: 11/11/2019 09:49 Soto/noreen [id number] cc: Andrews Collier M.D. [address] [facility] [place] [address] Normal [facility] *ANAEROBIC CULTUREon 020 *ANAEROBIC CULTURE Clinical Report: (D) Specimen/Source: TISSUE/INTRAOP SPEC Collected: 11/10/2019 08:50 Status: Final Last Updated: 11/15/2019 07:46 (1) #3 R. KNEE SYNOVIUM #2 CULT RES (Final) No Anaerobes Isolated 5 Days Normal [facility] Comment on above: Order Comment: #3 R. KNEE SYNOVIUM #2 Performed By: #### 8 [id number] #### [facility] [address] [facility]. [address] *ANAEROBIC CULTURE Clinical Report: (D) Specimen/Source: TISSUE/INTRAOP SPEC Collected: 11/10/2019 08:44 Status: Final Last Updated: 11/15/2019 07:46 (1) #2 R. KNEE SYNOVIUM #1 CULT RES (Final) No Anaerobes Isolated 5 Days Normal [facility] Comment on above: Order Comment: #2 R. KNEE SYNOVIUM #1 Performed By: #### 3 0312 #### [facility] [address] *ANAEROBIC CULTURE Clinical Report: (D) Specimen/Source: SWAB/INTRAOP SPEC Collected: 11/10/2019 08:43 Status: Final Last Updated: 11/15/2019 07:46 (1) #1 R. KNEE SYNOVIAL FLUID ON SWAB CULT RES (Final) No Anaerobes Isolated 5 Days Normal [facility] Comment on above: Order Comment: #1 R. KNEE SYNOVIAL FLUID ON SWAB Performed By: #### 8 [id number] #### [facility] [address] *BODY FLUID CULTUREon 2019 *BODY FLUID CULTURE Clinical Report: (D) Specimen/Source: FLUID/INTRAOP SPEC Collected: 11/10/2019 08:43 Status: Final Last Updated: 11/15/2019 10:58 (1) #1 R. KNEE SYNOVIAL FLUID ON SWAB GRAM (Final) Rare Polys No Bacteria Seen CULT RES (Final) No Growth Day 5 Normal [facility] Comment on above: Order Comment: #1 R. KNEE SYNOVIAL FLUID ON SWAB Performed By: #### 8 [id number] #### [facility] [address] *TISSUE CULTUREon 11-10-2019 *TISSUE CULTURE Clinical Report: (D) Specimen/Source: TISSUE/INTRAOP SPEC Collected: 11/10/2019 08:50 Status: Final Last Updated: 11/15/2019 10:59 (1) #3 R. KNEE SYNOVIUM #2 GRAM (Final) Rare Polys No Bacteria Seen CULT RES (Final) No Growth Day 5 Normal [facility] Comment on above: Order Comment: #3 R. KNEE SYNOVIUM #2 Performed By: #### 8 [id number] #### [facility] [address] *TISSUE CULTURE Clinical Report: (D) Specimen/Source: TISSUE/INTRAOP SPEC Collected: 11/10/2019 08:44 Status: Final Last Updated: 11/15/2019 10:58 (1) #2 R. KNEE SYNOVIUM #1 GRAM (Final) Rare Polys No Bacteria Seen CULT RES (Final) No Growth Day 5 Normal [facility] Comment on above: Order Comment: #2 R. KNEE SYNOVIUM #1 Performed By: #### 8 [id number] #### [facility] [address] POC GLUCOSE LABon 11-10-2019 Glucose [Mass/Vol] 100 mg/dL Normal 70-100 [facility] Comment on above: Performed By: #### 8 6002 #### [facility] [address] TYPE AND SCREENon 11-10-2019 ABO INTERPRETATION A Normal [facility] Comment on above: Performed By: #### 6 2586 #### [facility] [address] RH INTERPRETATION Positive Normal [facility] Comment on above: Performed By: #### 6 2586 #### [facility] [address] *MRSA/MSSA DNA NASALon 11-09 *MRSA/MSSA DNA NASAL Clinical Report: (D ) Specimen: NASAL SWAB Collected: 11/09/2019 19:00 Status: Final Last Updated: 11/10/2019 13:15 MSSA DNA (Final) Negative MRSA DNA (Final) Methicillin Resistant Staphylococcus aureus DNA Detected Normal [facility] Comment on above: Performed By: #### 8 [id number] #### [facility] [address] [place] [address], [facility] APTTon 11-09-2019 aPTT Coag (Bld) [Time] 29.3 s Normal 25.0-35.0 Th e [facility] Comment on above: Result Comment: ALL RESULTS [...] PURPOSE. Performed By: #### 6 2586 #### [facility] [address] [place] [address], [facility] BASIC METABOLIC PANELon 10-24 Calcium [Mass/Vol] 9.0 mg/dL Normal 8.6-10.3 [facility] Comment on above: Performed By: #### 0 0071 #### [facility] [address] [place] [address], [facility] Chloride [Moles/Vol] 94 mmol/L Low 98-107 [facility] Comment on above: Performed By: #### 0 0071 #### [facility] [address] [place] [address], [facility] CO2 [Moles/Vol] 26 mmol/L Normal 21-31 [facility] Comment on above: Performed By: #### 0 0071 #### [facility] [address] [place] [address], [facility] Creatinine [Mass/Vol] 1.40 mg/dL High 0.70-1.30 [facility] Comment on above: Performed By: #### 0 0071 #### [facility] [address] [place] [address], [facility] GFR/1.73 sq M predicted among blacks MDRD (S/P/Bld) [Vol rate/Area] 60 ml/min/1.73sq m Abnormal >60 [facility] Comment on above: Result Comment: Calc ulation may not be valid for patients over 70 years Performed By: #### 0 0071 #### [facility] [address] GFR/1.73 sq M predicted among non-blacks MDRD (S/P/Bld) [Vol rate/Area] 50 ml/min/1.73sq m Abnormal >60 [facility] Comment on above: Result Comment: Calc ulation may not be valid for patients over 70 years Performed By: #### 0 0071 #### [facility] [address] Glucose [Mass/Vol] 106 mg/dL High 70-100 [facility] Comment on above: Performed By: #### 0 0071 #### [facility] [address] Potassium [Moles/Vol] 3.9 mmol/L Normal 3.5-5.1 [facility] Comment on above: Performed By: #### 0 0071 #### [facility] [address] Sodium [Moles/Vol] 128 mmol/L Low 136-145 [facility] Comment on above: Performed By: #### 0 0071 #### [facility] [address] Urea nitrogen [Mass/Vol] 18 mg/dL Normal 7-25 [facility] Comment on above: Performed By: #### 0 0071 #### [facility] [address] [place] [address], [facility] CBC W/DIFFon 11-09-2019 ABS BASOPHILS 0.0 10*3/uL Normal 0.0-0.2 [facility] Comment on above: Performed By: #### 6 2586 #### [facility] [address] [place] [address], [facility] ABS IMM GRANS 0.1 10*3/uL Normal 0.0-0.2 [facility] Comment on above: Performed By: #### 6 2586 #### [facility] [address] [place] [address], [facility] ABS NEUTROPHILS 4.9 10*3/uL Normal 1.6-7.6 [facility] Comment on above: Performed By: #### 6 2586 #### [facility] [address] [place] [address], [facility] Basophils/100 WBC (Bld) 0.3 % Normal 0.0-1.[address] [facility] Comment on above: Performed By: #### 6 6 #### [facility] [address] [place] [address], [facility] Eosinophils (Bld) [#/Vol] 0.1 10*3/uL Normal 0.0-0.5 [facility] Comment on above: Performed By: #### 6 6 #### [facility] [address] [place] [address], [facility] Eosinophils/100 WBC (Bld) 0.8 % Normal 0.0-6.0 [facility] Comment on above: Performed By: #### 6 2586 #### [facility] [address] [facility] [place] [address], [facility] Erythrocyte distribution width (RBC) [Ratio] 14.0 % Normal 11.5-15.0 [facility] Comment on above: Performed By: #### 6 6 #### [facility] [address] [facility] [place] [address], [facility] Hematocrit (Bld) [Volume fraction] 35.1 % Low 39.0-50.0 [facility] Comment on above: Performed By: #### 6 6 #### [facility] [address] [facility] [address], [facility] Hemoglobin (Bld) [Mass/Vol] 11.6 g/dL Low 13.0-17.0 [facility] Comment on above: Performed By: #### 6 6 #### [facility] [address] [facility] [address], [facility] IMMATURE GRANS 0.9 % Normal 0.0-1.0 [facility] Comment on above: Performed By: #### 6 2586 #### [facility] [address] [facility] [place] [address], [facility] Lymphocytes (Bld) [#/Vol] 0.7 10*3/uL Low 1.2-4.0 [facility] Comment on above: Performed By: #### 6 2586 #### [facility] [address] [place] [address], [facility] Lymphocytes/100 WBC (Bld) 11.2 % Low 20.0-45.0 [facility] Comment on above: Performed By: #### 6 2586 #### [facility] [address] [facility]. [address] MCH (RBC) [Entitic mass] 31.4 pg Normal 27.0-33.0 [facility] Comment on above: Performed By: #### 6 2586 #### [facility] [address] [place] [address], [facility] MCHC (RBC) [Mass/Vol] 33.0 g/dL Normal 32.0-35.0 [facility] Comment on above: Performed By: #### 6 2586 #### [facility] [address] [facility] [place] [address], [facility] MCV (RBC) [Entitic vol] 95.1 fL Normal 82.0-98.0 T he [facility] Comment on above: Performed By: #### 6 2586 #### [facility] [address] [facility] [place] [address], [facility] Monocytes (Bld) [#/Vol] 0.8 10*3/uL Normal 0.1-1.0 [facility] Comment on above: Performed By: #### 6 2586 #### [facility] [address] [facility] [place] [address], [facility] MONOS 12.4 % High 5.0-12.0 [facility] Comment on above: Performed By: #### 6 2586 #### [facility] [address] [facility] [place] [address], [facility] Neutrophils/100 WBC (Bld) 74.4 % High 40.0-72.0 [facility] Comment on above: Performed By: #### 6 2586 #### [facility] [address] [facility] [place] [address], [facility] Nucleated RBC/100 WBC (Bld) [Ratio] 0 % Normal 0-0 [facility] Comment on above: Performed By: #### 6 2586 #### [facility] [address] [facility] [place] [address], [facility] PLAT CNT 233 10*3/uL Normal 150-400 [facility] Comment on above: Performed By: #### 6 2586 #### [facility] [address] [facility] [place] [address], [facility] RBC (Bld) [#/Vol] 3.69 10*6/uL Low 4.20-5.70 [facility] Comment on above: Performed By: #### 6 2586 #### [facility] [address] [facility] [place] [address], [facility] WBC (Bld) [#/Vol] 6.54 10*3/uL Normal 4.00-10.60 [facility] Comment on above: Performed By: #### 6 2586 #### [facility] [address] [facility] [place] [address], [facility] KNEE RIGHT 3 VWSon 0 KNEE RIGHT 3 VWS [facility] Department of Radiology [address] [place] [id number] Patient Name: HUY OSEI : 1950 Sex: M Age: Race: White Pt. Location: Patient Status: O Ordered Date: 11/09/2019 6:50:00 PM Completed Date: 11/09/2019 07:18 PM Requesting Provider: ANDREWS COLLIER Attending Provider: ANDREWS COLLIER Report Copy To: Signs & Symptoms: M00.9 Pyogenic arthritis, unspecified I10 History: [place] Comments: , Views (X-RAY, KNEE): Radiologic Protocol [...] reports Electronically signed: Galen Kruse. Transcribed by: [email or web address], User Resident: TONYA COPE Electronically Signed by: GALEN KRUSE @ 11/10/2019 09:54 AM I personally read this/these film(s) with this resident Normal [facility] Comment on above: Order Comment: , Vie ws (X-RAY, KNEE): Radiologic Protocol , Weight Bearing?: Y , Views (X-RAY, KNEE): Radiologic Protocol , Weight Bearing?: Y , , , Ordering Provider - ANDREWS COLLIER MD , PROTHROMBIN TIMEon 0 INR Coag (PPP) [Relative time] 0.99 {INR} Normal 0.91-1.16 [facility] Comment on above: Result Comment: ACCC P [...] 1995;108:[id number]. Performed By: #### 6 2586 #### [facility] [address] [place] [address], [facility] PT Coag (PPP) [Time] 13.1 s Normal 12.3-14.8 [facility] Comment on above: Result Comment: ALL RESULTS MUST BE INTERPRETED WITH RESPECT TO BLOOD DRAWING ARTIFACT OR DILUTION ERROR OF ANTICOAGULANT AT THE TIME OF SAMPLING. Performed By: #### 6 2586 #### [facility] [address] [place] [address], [facility] RBC'S 2 UNITSon 11-09-2019 CROSSMATCH INTERP 1 COMP Normal [facility] Comment on above: Performed By: #### 8 [id number] #### [facility] [address] [place] [address], [facility] CROSSMATCH INTERP 2 COMP Normal [facility] Comment on above: Performed By: #### 8 [id number] #### [facility] [address] [facility] [address], [facility] PRODUCT CODE 1 E0336 Normal [facility] Comment on above: Performed By: #### 8 [id number] #### [facility] [address] [place] [id number], [facility] PRODUCT CODE 2 E0336 Normal [facility] Comment on above: Performed By: #### 8 6002 #### [facility] [address] [place] [id number], [facility] PRODUCT STATUS 1 RE Normal [facility] Comment on above: Result Comment: Resu lt changed by IF on 11/14/2019 06:36. The previous value was XM. Performed By: #### 8 [id number] #### [facility] [address] [place] [id number], [place] PRODUCT STATUS 2 RE Normal [facility] Comment on above: Result Comment: Resu lt changed by IF on 11/14/2019 06:36. The previous value was XM. Performed By: #### 8 [id number] #### [facility] [address] [place] [address], [place] UNIT ABO 1 A Normal [facility] Comment on above: Performed By: #### 8 6002 #### [facility] [address] [place] [address], [place] UNIT ABO 2 A Normal [facility] Comment on above: Performed By: #### 8 6002 #### [facility] [address] [place] [address], [facility] UNIT ID 1 [id number] Normal [facility] Comment on above: Performed By: #### 8 6002 #### [facility] [address] [place] [address], [facility] UNIT ID 2 [id number] Normal [facility] Comment on above: Performed By: #### 8 6002 #### [facility] [address] [place] [address], [place] UNIT RH 1 Positive Normal [facility] Comment on above: Performed By: #### 8 6002 #### [facility] [address] [place] [address], [place] UNIT RH 2 Positive Normal [facility] Comment on above: Performed By: #### 8 6002 #### [facility] [address] [place] [address], [place] Vital Signs Date Time Vital Sign Value Performing Clinician Facility 05-07-2025 10: Body height 177.8 cm Pool Garcia MD Work Phone: [facility] 05-07-2025 10: Body mass index (BMI) [Ratio] 30.2 kg/m2 Pool Garcia MD Work Phone: [facility] 05-07-2025 10:14-0400 Body weight 95.6 kg Pool Garcia MD Work Phone: [facility] 02-13-2025 09:44-0400 Body height 177.8 cm Pool Garcia MD Work Phone: [facility] 02-13-2025 09:44-0400 Body mass index (BMI) [Ratio] 30.42 kg/m2 Pool Garcia MD Work Phone: [facility] 02-13-2025 09:44-0400 Body temperature 97.3 [degF] Pool Garcia MD Work Phone: [facility] 02-13-2025 09:44-0400 Body weight 96.16 kg Pool Garcia MD Work Phone: [facility] 02-13-2025 09:44-0400 Diastolic blood pressure 66 mm[Hg] Pool Garcia MD Work Phone: [facility] 02-13-2025 09:44-0400 Heart rate 77 /min Pool Garcia MD Work Phone: [facility] 02-13-2025 09:44-0400 Respiratory rate 20 /min Pool Garcia MD Work Phone: [facility] 02-13-2025 09:44-0400 SaO2% (BldA) [Mass fraction] 97 % Pool Garcai MD Work Phone: [facility] 02-13-2025 09:44-0400 Systolic blood pressure 128 mm[Hg] Pool Garcia MD Work Phone: [facility] 02-02-2025 10:42-0400 Body height 177.8 cm [facility] 02-02-2025 10:42-0400 Body mass index (BMI) [Ratio] 30.3 kg/m2 [facility] 02-02-2025 10:42-0400 Body temperature 98 [degF] [facility] 02-02-2025 10:42-0400 Body weight 95.93 kg [facility] 02-02-2025 10:42-0400 Diastolic blood pressure 62 mm[Hg] [facility] 02-02-2025 10:42-0400 Heart rate 73 /min [facility] 02-02-2025 10:42-0400 Respiratory rate 16 /min [facility] 02-02-2025 10:42-0400 SaO2% (BldA) [Mass fraction] 96 % [facility] 02-02-2025 10:42-0400 Systolic blood pressure 138 mm[Hg] [facility] 09-04-2024 09:32-0500 Body height 177.8 cm [facility] 09-04-2024 09:32-0500 Body mass index (BMI) [Ratio] 30.8 kg/m2 [facility] 09-04-2024 09:32-0500 Body temperature 98.2 [degF] [facility] 09-04-2024 09:32-0500 Body weight 97.52 kg [facility] 09-04-2024 09:32-0500 Diastolic blood pressure 65 mm[Hg] [facility] 09-04-2024 09:32-0500 Heart rate 73 /min [facility] 09-04-2024 09:32-0500 Respiratory rate 18 /min [facility] 09-04-2024 09:32-0500 SaO2% (BldA) [Mass fraction] 97 % [facility] 09-04-2024 09:32-0500 Systolic blood pressure 129 mm[Hg] [facility] 08-15-2024 11:08-0400 Body height 177.8 cm Pool Garcia MD Work Phone: [facility] [facility] 08-15-2024 11:08-0400 Body mass index (BMI) [Ratio] 30.28 kg/m2 Pool Garcia MD Work Phone: [facility] 08-15-2024 11:08-0400 Body temperature 97.5 [degF] Pool Garcia MD Work Phone: [facility] 08-15-2024 11:08-0400 Body weight 95.71 kg Pool Garcia MD Work Phone: [facility] 08-15-2024 11:08-0400 Diastolic blood pressure 54 mm[Hg] Pool Garcia MD Work Phone: [facility] 08-15-2024 11:08-0400 Heart rate 70 /min Pool Garcia MD Work Phone: [facility] 08-15-2024 11:08-0400 Respiratory rate 18 /min Pool Garcia MD Work Phone: [facility] 08-15-2024 11:08-0400 SaO2% (BldA) [Mass fraction] 96 % Pool Garcia MD Work Phone: [facility] 08-15-2024 11:08-0400 Systolic blood pressure 110 mm[Hg] Pool Garcia MD Work Phone: [facility] 05-24-2023 10:25-0400 Body height 176.53 cm Katiana Kemp Other [facility] Other 05-24-2023 10:25-0400 Body mass index (BMI) [Ratio] 31.2 kg/m2 Katiana Kemp Other [facility] Other 05-24-2023 10:25-0400 Body weight 97.25 kg Katiana Kemp Other [facility] Other 05-24-2023 10:25-0400 Diastolic blood pressure 65 mm[Hg] Katiana Kemp Other [facility] Other 05-24-2023 10:25-0400 Respiratory rate 18 /min Katiana Kemp Other [facility] Other 05-24-2023 10:25-0400 SaO2% (BldA) [Mass fraction] 100 % Katiana Bartonley Other [facility] Other 05-24-2023 10:25-0400 Systolic blood pressure 142 mm[Hg] Katiana Viridiana Other [facility] Other Encounters Encounter Date Encounter Type Care Provider Facility Start: 05-07-2025 End: 05-07-2025 ambulatory Pool Garcia MD Work Phone: [facility] Work Phone: Start: 05-07-2025 End: 05-07-2025 Patient encounter procedure Jaswant Henley MD -Count Includes [facility] Work Phone: Start: 04-22-2025 End: 04-22-2025 ambulatory [facility] Start: 04-01-2025 End: 04-01-2025 ambulatory Paty Durán MD Facility: [facility] Start: 03-25-2025 End: 03-25-2025 ambulatory [facility] Start: 03-25-2025 End: 03-25-2025 Encounter for other preprocedural examination [facility] Start: 03-08-2025 End: 03-08-2025 Clinisync [...] Department Unsolicited Start: 02-13-2025 End: 02-13-2025 Mandy flowsheet Pool Garcia MD Work Phone: [facility] [...] Not Available Start: 02-02-2025 End: 02-02-2025 ambulatory [facility] Work Phone: Start: 02-02-2025 End: 02-02-2025 Patient encounter procedure [facility] Work Phone: Start: 01-14-2025 [...] Department Unsolicited Start: 09-04-2024 End: 09-04-2024 ambulatory [facility] Work Phone: Start: 09-04-2024 End: 09-04-2024 Patient encounter procedure [facility] Work Phone: Start: 08-15-2024 End: 08-15-2024 Bamboo flowsheet Pool Garcia MD Work Phone: [facility] Start: 08-15-2024 End: 08-15-2024 Bamboo flowsheet Pool Garcia MD Work Phone: [facility] Start: 08-15-2024 End: 08-15-2024 Clinisync Result Encounter Pool Garcia MD Work Phone: [facility] External Department Unsolicited Start: 08-15-2024 End: 08-15-2024 Patient encounter procedure Pool Garcia MD Work Phone: [facility] Start: 08-15-2024 End: 08-15-2024 Postop follow [...] Available Start: 07-13-2024 End: 07-13-2024 ambulatory HOLLY SAUL [facility] Start: 03-12-2024 End: 03-13-2024 Emergency department patient visit JOANNE GALLEGOS [facility] Start: 05-24-2023 End: 05-24-2023 ambulatory Katiana Kemp Other [facility] Other Start: 05-24-2023 Office outpatient ne w 20 minutes Katiana Kemp [facility] Start: 2023 End: 01-28-2023 ambulatory NARAMI STEWARTSHMIPATHIsabel Facility:[facility] Start: 01-13-2023 End: 01-14-[address] POOL GARCIA Facility:[facility] Start: 01-11-2023 End: 01-11-2023 ambulatory NARENDEMELY STEWARTSHMILAMBERT Facility:[facility] Start: 12-07-2022 End: 12-08-[address] [...] Start: 03-03-2022 Encounter for preprocedural cardiovascular examination [facility] . [facility] Start: 03-03-2022 Encounter for preprocedural laboratory examination [facility] . [facility] Start: 03-01-2022 End: 03-02-2022 ambulatory [facility] . Facility:[facility] Start: 03-01-2022 End: 03-02-2022 Encounter for preprocedural cardiovascular examination [facility] . Facility:[facility] Start: 02-24-2022 End: 02-25-[address] BRADY MORRIS Facility: Start: 08-21-2020 End: 08-22-2020 Patient encounter procedure PROVIDER UNKNOWN Facility:[facility] Start: 05-05-2020 End: 05-06-2020 Patient encounter procedure PROVIDER UNKNOWN Facility:[facility] Start: 04-16-2020 End: 04-17-2020 Patient encounter procedure PROVIDER UNKNOWN Facility:[facility] Start: 11-26-2019 End: 11-27-2019 Patient encounter procedure [place] Facility:[facility] Start: 11-09-2019 End: 11-13-2019 Evaluation and management of inpatient [place] Facility:[facility] Procedures Date Procedure Procedure [...] Work Phone: Start: 07-27-[address] SOCTT CHAUHAN . Comment on above: Performed By: #### T SH, BMP #### [facility] [address] [place] [address] Dr. Marilin Rothman Start: 04-17-2020 Antibody screen Comment on above: Performed By: #### 0 5 #### [facility] [address] [facility] Start: 11-26-2019 Anes integ extremiti es ant trunk & perineum nos YA [place] Start: 11-26-2019 LATE CLOSURE OF WOUND N ABIL EBHEIM Start: 11-10-2019 EXCISION OF RIGHT KN EE JOINT, OPEN APPROACH ANDREWS EBRAHEIM Start: 11-10-2019 Antibody screen Comment on above: Performed By: #### [id number] #### [facility] [address] [facility] Plan of Treatment Date Care Activity Detail Author Start: 08-27-2025 End: 08-27-2025 Patient encounter procedure 08/27/2025 11:00 AM EST [facility] [address] [place] [address] Pool Garcia MD [address] [place] [address] [facility] Start: 08-15-2025 Medicare Annual Wellness (AWV) Medicare Annual Wellness (AWV) [facility] Start: 02-13-2025 End: 02-13-2026 Basic metabolic 1998 panel - Serum or Plasma Basic metabolic panel Lab Routine Essential hypertension, benign (CMS/HCC) Expected: 02/13/2025 (Approximate), Expires: 02/13/2026 [facility] Work Phone: Comment on above: Expected: 02/13/2025 (Approximate), Expires: 02/13/2026 Start: 02-13-2025 End: 02-13-2026 CBC W Auto Differential panel - Blood CBC and differential Lab Routine Encounter for long-term (current) use of medications Expected: 02/13/2025 (Approximate), Expires: 02/13/2026 [facility] Comment on above: Expected: 02/13/2025 (Approximate), Expires: 02/13/2026 Start: 02-13-2025 End: 02-13-2026 Hepatic function 2000 panel - Serum or Plasma Hepatic function panel Lab Routine Encounter for long-term (current) use of medications Expected: 02/13/2025 (Approximate), Expires: 02/13/2026 [facility] Comment on above: Expected: 02/13/2025 (Approximate), Expires: 02/13/2026 Start: 02-13-2025 End: 02-13-2025 Patient encounter procedure [facility] Comment on above: Arrived Start: 08-15-2024 End: 08-15-2025 Basic metabolic 1998 panel - Serum or Plasma Basic metabolic panel Lab Routine Essential hypertension, benign (CMS/HCC) Expected: 08/15/2024 (Approximate), Expires: 08/15/2025 [facility] Work Phone: Comment on above: Expected: 08/15/2024 (Approximate), Expires: 08/15/2025 Start: 08-15-2024 End: 08-15-2025 CBC W Auto Differential panel - Blood CBC and differential Lab Routine Encounter for long-term (current) use of medications Expected: 08/15/2024 (Approximate), Expires: 08/15/2025 [facility] Comment on above: Expected: 08/15/2024 (Approximate), Expires: 08/15/2025 Start: 08-15-2024 End: 08-15-2025 Hepatic function 2000 panel - Serum or Plasma Hepatic function panel Lab Routine Encounter for long-term (current) use of medications Expected: 08/15/2024 (Approximate), Expires: 08/15/2025 [facility] Comment on above: Expected: 08/15/2024 (Approximate), Expires: 08/15/2025 Start: 08-15-2024 End: 08-15-2025 Lipid 1996 panel - Serum or Plasma Lipid panel Lab Routine Dyslipidemia (CMS/HCC) Expected: 08/15/2024 (Approximate), Expires: 08/15/2025 [facility] Comment on above: Expected: 08/15/2024 (Approximate), Expires: 08/15/2025 Start: 08-15-2024 End: 08-15-2025 Prostate specific Ag [Mass/volume] in Serum or Plasma PSA Lab Routine Screening PSA (prostate specific antigen) Expected: 08/15/2024 (Approximate), Expires: 08/15/2025 [facility] Comment on above: Expected: 08/15/2024 (Approximate), Expires: 08/15/2025 Start: 08-15-2024 End: 08-15-2025 Thyrotropin [Units/volume] in Serum or Plasma TSH Lab Routine Class 1 obesity due to excess calories with serious comorbidity and body mass index (BMI) of 30.0 to 30.9 in adult Expected: 08/15/2024 (Approximate), Expires: 08/15/2025 [facility] Comment on above: Expected: 08/15/2024 (Approximate), Expires: 08/15/2025 Start: 08-15-2024 End: 08-15-2024 Patient encounter procedure 08/15/2024 11:30 AM EDT Office Visit [facility] [address] [place] [phone] Pool Garcia MD [address] [place] [address] [facility] Comment on above: Arrived Start: 06-24-2024 Influenza vaccination Influenza Vacc ine (#1) [facility] Start: 05-05-2021 Pneumococcal Vaccine : 65+ Years (2 of 2 - PCV) Pneumococcal Vaccine: 65+ Years (2 of 2 - PCV) [facility] Start: 1950 Medicare Annual Wellness (AWV) Medicare Annual Wellness (AWV) [facility] DXA Skeletal system.axial Views for bone density [facility] Immunizations Immunization Date Immunization Notes Care Provider Fa cility 08-15-2024 influenza, seasonal, injectable, preservative free Pool Garcia MD Work Phone: [facility] 09-15-2021 influenza virus vacc ine, unspecified formulation Pool Garcia MD Work Phone: [facility] Payers Date Payer Category Payer Medicare 2022 Medicare (Managed Care) [facility] [id number] 2009 Unknown [id number] 1959 Medicare [id number] 1959 Medicare [id number] 1948 Unknown [id number] 2.16.840.1.053337.3.579.2. 647 1948 Unknown [id number] 2.16.840.1.894787.3.579.2. 647 1948 Unknown [id number] 2.16.840.1.612105.3.579.2. 647 1948 Unknown [id number] 2.16.840.1.963975.3.579.2. 647 1948 Unknown [id number] 2.16.840.1.193468.3.579.2. 647 1948 Unknown [id number] 2.16.840.1.758078.3.579.2. 593 1948 Unknown [id number] 2.16.840.1.946332.3.579.2. 593 1948 Unknown [id number] 2.16.840.1.839358.3.579.2. 593 1948 Unknown [id number] 2.16.840.1.500890.3.579.2. 593 1948 Unknown [id number] 2.16.840.1.628724.3.579.2. 593 1948 Unknown [id number] 2.16.840.1.906064.3.579.2. 593 1948 Unknown [id number] 2.16.840.1.820203.3.579.2. 593 1948 Unknown [id number] 2.16.840.1.186249.3.579.2. 593 1948 Unknown [id number] 2.16.840.1.759350.3.579.2. 593 1948 Unknown [id number] 2.16.840.1.617728.3.579.2. 593 1948 Unknown [id number] 2.16.840.1.250200.3.579.2. 593 1948 Unknown [id number] 2.16.840.1.969995.3.579.2. 175 1948 Unknown [id number] 2.16.840.1.855211.3.579.2. 1259 1948 Unknown [id number] 2.16.840.1.400696.3.579.2. 1259 1948 Unknown [id number] 2.16.840.1.229108.3.579.2. 196 1948 Unknown [id number] 2.16.840.1.933501.3.579.2. 196 Medicare [id number] Social History Date Type Detail Facility Start: 02-08-2024 End: 08-15-2024 Sex Assigned At [facility] Tobacco smoking stat [facility] Tobacco smoking consumption unknown [facility] Start: 02-08-2024 End: 08-15-2024 History of Social function [facility] Do you belong to any clubs or organizations such as jainism groups, unions, fraternal or athletic groups, or [...] Start: 09-04-2024 End: 02-02-2025 Sex Male (finding) [facility] Start: 1950 Sex Assigned At Male [facility] Clinical Notes 10-26-2022 to 03-25-2025 Pool Garcia MD - 02/13/2025 10:32 AM Edwin Garcia MD - 02/13/2025 10:32 AM Edwin Garcia MD - 02/13/2025 10:31 AM Edwin Garcia MD - 02/13/2025 10:31 AM EDT Note Date & Type Note Facility 03-25-2025 Note [place] Cardiology - [facility] Subjective Huy Osei is a [...] 12 pack per week Drug use: Never VASQUEZ Huy is seen in follow-up on CAD, [...] by mouth twi (more content not included)... [facility] 02-13-2025 History of Present illness Narrative Associated [...] kidney disease (CKD), stage III (moderate) (HCC) (CMS/HCC) DDD (degenerative disc disease), lumbar Pain worse after using walking boot. Treat with prednisone. Refer back to pain management. Relevant Medications predniSONE (Deltasone) 50 MG tablet Other Relevant Orders Ambulatory referral to Pain Medicine PAD (peripheral artery disease) ([facility]) Continue medication. Fatigue Encounter for long-term (current) use of medications Relevant Orders CBC and differential Hepatic function panel documented in this encounter [facility] 08-15-2024 History of Present illness Narrative Associated [...] free IM (Completed) documented in this encounter [facility] 07-13-2024 Note Reviewed ABIs with p atient and they are normal no concerns for significant arterial stenosis Continue Lipitor, and regular exercise [facility] 07-13-2024 Note Lipid abnormalities are unchanged. Follow-up with PCP for annual blood testing Continue atorvastatin 80 mg daily and reviewed his lipid profile is well-controlled and liver function was normal Pharmacotherapy as ordered. Lipids will be reassessed in 1 year. [facility] 07-13-2024 Note Hypertension is unch anged. Continue Norvasc, losartan and Toprol Continue current treatment regimen. Continue current medications. Blood pressure will be reassessed at the next regular appointment. [facility] 07-13-2024 Note Coronary artery dise ase is unchanged. Remained stable no concerning symptoms Continue Plavix, Toprol and Lipitor Currently cholesterol levels are well-controlled and liver functions normal Continue current treatment regimen. Regular aerobic exercise. Continue current medications. Cardiac status will be reassessed in 1 year. [facility] 07-13-2024 Note UTP CARDIOLOGY PROGR ESS NOTE [...] DAY IN THE MORNING 90 tablet 3 ybcrahpnibp-rdajmsrru-ytazygkx 100-62.5-25 mcg blister with device Inhale 1 [...] 122. Imaging a (more content not included)... [facility] 07-13-2024 Note Pt here for six cecelia h follow up. Pt denies chest pain, sob, palpatations. Review of Systems HENT: Positive for tinnitus. Cardiovascular: Positive for dyspnea on exertion. Musculoskeletal: Positive for arthritis, back pain, joint pain and myalgias. All other systems reviewed and are negative. [facility] 05-24-2023 Evaluation note Encounter Date Diagnosis Assessment [...] fever. Patient verbalized understanding of treatment plan. [facility] Other 04-06-2023 NoteCONSULTATION CONSULTATION DATE: 2023 TO: [...] our patients to inform us about any hjci-xaa-tpqvefs medications or herbal remedies/nutritional supplements/alternative remedies. 2. [...] treatment options with their primary care provider.[id number] Note CONSULTATION CONSULTATION DATE: 12/07/2022 CHIEF COMPLAINT: [...] Education was done. CC: Pool Garcia M.D.[facility] [id number] NoteCONSULTATION CONSULTATION DATE: 11/02/2022 PREOPERATIVE DIAGNOSIS: Left [...] will be followed up in the office.[facility] [id number] NoteCONSULTATION CONSULTATION DATE: 10/26/2022 CHIEF COMPLAINT: Low [...] by Dr. Garcia. CC: Pool Garcia M.D.[facility]* Diagnosis Encounter for Medicare annual wellness [...] vascular disease, unspecified documented in this encounter [facility] HealthcareEvaluation noteNo assessment information availableC[facility] Work Phone: Evaluation note* Diagnosis Onset Date Resolution Status Admit Date Right fibular fracture noneactive Ap 2024 10:24am Blind left eye noneactive January 10:24am [facility] Work Phone: Evaluation note* Diagnosis Encounter [...] right knee arthroscopy Surgical History cataract removal [facility] Other Reason for referral (narrative)No reason for referral information availableC[facility] Work Phone: Summary Purpose Family History No Family History Records Found Relationship Condition Age at Onset Recorded Date/T irving father Unknown mother Unknown Advance Directives No Advanced Directives Records Found Advance Directive Response Recorded Date/ Time Advance Directives No September 7:42am Advance Directive Response Recorded Date/ Time Advance Directives No September 8:42am Hospital Course Note MR#: [id number] I [facility] Pt. Name: Huy Osei Admitted: 11/09/2019 [...] cocci. The patient was then transferred to [facility] for higher level of [...] left eye February 02, 2025 10: 24am Chief Complaint Admit Date Radiculopathy, lumbar region May 07, 2025 10:05am Additional Source Comments (unrecognized sect ion and content) No Status Records FoundNo Status Records FoundNo Status Records FoundNo Status Records FoundNo Status Records FoundNo Status Records Found INFORMATION SOURCE (unrecogn ized section and content) DATE CREATED AUTHOR 09/21/2020 [facility] DATE CREATED AUTHOR AUTHOR'S ORGANIZ ATION 02/06/2023 [facility] DATE CREATED AUTHOR AUTHOR'S ORGANIZ ATION 03/17/2024 [facility] DATE CREATED AUTHOR AUTHOR'S ORGANIZ ATION 02/14/2025 [facility] EPIC DATE CREATED AUTHOR AUTHOR'S ORGANIZ ATION 03/25/2025 [facility] DATE CREATED AUTHOR AUTHOR'S ORGANIZ ATION 05/25/2025 [facility] REASON FOR VISIT (unrecogniz ed section and content) Reason Comments Medicare Annual Wellness Visit [facility] Reason Comments Follow-up 6m Hip Pain Care Teams (unrecognized sec tion and content) [employer] Relationship Specialty Start Date End Date Pool Garcia MD [address] [place] [address] PCP - C 11/24/23 02/21/68 Pool Garcia MD [address] [place] [address] PCP [facility] 08/15/24 [employer] Relationship Specialty Start Date End Date Pool Garcia MD [address] [place] [address] [facility] 11/24/23 02/21/68 Pool Garcia MD [address] [place] [address] [facility] 08/15/24 [employer] Relationship Specialty Start Date End Date Pool Garcia MD [address] [place] [address] [facility] 11/24/23 02/21/68 Pool Garcia MD [address] [place] [address] [facility] 08/15/24 Team Status: Active Member Role Status Dates Pool Garcia MD Primary Care Provider Active Team Status: Inactive Member Role Status Dates Pool Garcia MD Primary Care Provider Active S tart: September 04, 2024 End: September 04, 2024 Katiana Kemp APRN Attending Provider Active Start: September 04, 2024 End: September 04, 2024 [employer] Relationship Specialty Start Date End Date Pool Garcia MD [address] [place] [address] [facility] 11/24/23 02/21/68 Pool Garcia MD [address] [place] [address] PCP - General Family Medicine 08/15/24 Team Status: Inactive Member Role Status Dates Pool Garcia MD Primary Care Provider Active S tart: February 02, 2025 End: February 02, 2025 Katiana Kemp APRN Attending Provider Active Start: February 02, 2025 End: February 02, 2025 [employer] Relationship Specialty Start Date End Date Pool Garcia MD [address] [place] [address] PCP - [facility] 11/24/23 02/21/68 Pool Garcia MD [address] [place] [address] PCP - General Family Medicine 08/15/24 [employer] Relationship Specialty Start Date End Date Pool Garcia MD [address] [place] [phone] PCP - [facility] 11/24/23 02/21/68 Pool Garcia MD [address] [place] [address] PCP - General Family Medicine 08/15/24 [employer] Relationship Specialty Start Date End Date Pool Garcia MD [address] [place] [address] PCP - [facility] 11/24/23 02/21/68 Pool Garcia MD [address] [place] [address] PCP - General Family Medicine 08/15/24 [employer] Relationship Specialty Start Date End Date Pool Garcia MD [address] [place] [address] PCP - [facility] 11/24/23 02/21/68 Pool Garcia MD [address] [place] [address] PCP - General Family Medicine 08/15/24 Team Status: Inactive Member Role Status Dates Pool Garcia MD Primary Care Provider Active S tart: May 07, 2025 End: May 07, 2025 Jaswant Henley MD Attending Provider Active Star t: May 07, 2025 End: May 07, 2025 Goals (unrecognized section and content) Goals may [...] BE BASED ON THE PRIMARY CLINICAL RECORDS. [facility] [employer] [facility]. provides no warranty or guarantee of the accuracy or completeness of information in this document.
[2025-05-27 09:28] VITALS: BP 151/74; BP 169/75; PULSE 64; PULSE 69; O2SAT 95; O2SAT 97
[2025-05-27] MEDS: IOHEXOL 240 MG/ML - 10 ML VIAL 24 MG INJ (09:32)
[2025-05-27] MEDS: BUPIVACAINE HCL 0.25% PF 25 MG/10 ML VIAL 4 ML INJ (09:32)
[2025-05-27] MEDS: LIDOCAINE HCL 2% 400 MG/20 ML MDV INJ (09:33)
[2025-05-27] MEDS: METHYLPREDNISOLONE ACETATE 40 MG/ML VIAL INJ (09:33)
--- NOTE | 2025-05-27 09:36 | W.PM.PROCNOT ---
Date of procedure: 05/27/25 Pre-op diagnosis: Pain due to right hip osteoarthritis Post-op diagnosis: same as pre-op Procedure: Procedure: Right hip injection Medications: Bupivacaine 0.25% 4cc, depomedrol 40mg I explained the details of the procedure to the patient including the risks, benefits and alternatives. We had an informed discussion and the patient verbalized understanding and signed the consent form. All questions were answered appropriately.? A time out was performed.? After obtaining a comfortable supine position, the skin overlying the hip, subtrochanteric region, and joint space were prepped with alcohol. A sterile syringe containing the above medication was attached to a 25 guage, 3.5 inch spinal needle under strict aseptic technique. X ray was used to identify the joint space and the femoral neck on the right side.? The needle was than advanced through the subcutaneous tissue after local injection of 1% lidocaine.? The contents of the syringe were gently injected without any resistance into the joint space after contrast (isovue) outlined the appropriate area. The needle was removed and pressure was applied to the injection site to decrease the incidence of ecchymosis and hematoma formation.? A sterile bandage was applied. Post procedural instructions were given to the patient. Anesthesia: Local Surgeon: Paty Durán Pathology: none sent Condition: stable Disposition: no change
== END 2025-05-27 09:36 | disposition home or self-care (01) ==
LOC: SURGOUT 08:29
PROVIDERS: PCP Family Medicine; Visit Provider Anesthesiology
DX: M25.551 Pain in right hip (principal); M16.11 Unilateral primary osteoarthritis, right hip
CPT/HCPCS: 20610; 77002; J0665; J1010; Q9966

== ENCOUNTER 2025-09-27 10:01 | Outpatient (OUT) | payer MEDICARE, SELFPAY ==
--- OUTSIDE RECORDS SUMMARY | 2025-09-23 09:47 | XMS_ITS | Continuity of Care Document ---
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 Role Phone Pool Peace MD Primary Care Provider Jaswant Henley MD Attending Provider [phone] Jaswant Henley MD Other Provider Pool Peace MD Attending Provider [phone] Care Teams Patient Care Team Team Status: Active Member Role/Relationship Status Dates Pool Peace MD Primary Care Provider Active Visit Care Team Team Status: Inactive Member Role/Relationship Status Dates Pool Peace MD Primary Care Provider Active S tart: June 25, 2025 End: June 25, 2025Cesar Gallo ProviderActiveStart: June 25, 2025 End: June 25, 2025 Visit Care Team Team Status: Inactive Member Role/Relationship Status Dates Pool Peace MD Primary Care Provider Active S tart: July 18, 2025 End: July 18, 2025Cesar Gallo ProviderActiveStart: July 18, 2025 End: July 18, 2025 Visit Care Team Team Status: Inactive Member Role/Relationship Status Dates Pool Peace MD Primary Care Provider Active S tart: July 24, 2025 End: July 24, 2025Cesar Gallo ProviderActiveStart: July 24, 2025 End: July 24, 2025 Visit Care Team Team Status: Active Member Role/Relationship Status Dates Pool Peace MD Primary Care Provider Active S tart: August 07, 2025 Cesar Gallo ProviderActiveStart: August 07, 2025 Ky Gallo ProviderActiveStart: August 07, 2025 Visit Care Team Team Status: Active Member Role/Relationship Status Dates Pool Peace MD Primary Care Provider Active S tart: August 14, 2025 Cesar Gallo ProviderActiveStart: August 14, 2025 Ky Gallo ProviderActiveStart: August 14, 2025 Visit Care Team Team Status: Inactive Member Role/Relationship Status Dates Pool Peace MD Primary Care Provider Active S tart: August 22, 2025 End: August 22, 2025Cesar Gallo ProviderActiveStart: August 22, 2025 End: August 22, 2025 Patient Care Team Team Status: Inactive Member Role/Relationship Status Dates Pool Peace MD Primary Care Provider Active S tart: September 23, 2025 End: September 23, 2025Cesar Quinones ProviderActiveStart: September 23, 2025 End: September 23, 2025 Chief Complaint and Reason for Visit Chief Complaint Admit Date surgical consult June 25, 2025 9:39am update consent July 18, 2025 9:04am lumbar stenosis July 24, 2025 12 :50pm lumbar stenosis August 07, 2025 5 :48am lumbar stenosis August 14, 2025 1 2:00am 2 week decompression August 22, 2025 10:20am Medicare Wellness September 23, 2025 1 :30pm Reason for Visit Admit Date Lumbar stenosis with neurogenic claudica tion June 25, 2025 9:39am Right hip pain June 25, 2025 9:39am Trochanteric bursitis, right hip Septemb er 2024 9:39am Lumbar stenosis with neurogenic claudica tion July 18, 2025 9:04am Right hip pain July 18, 2025 9:04am Trochanteric bursitis, right hip Septemb er 2024 9:04am Lumbar stenosis with neurogenic claudica tion August 07, 2025 5:48am BPH without urinary obstruction August 22, 2025 10:20am Lumbar stenosis with neurogenic claudica tion August 22, 2025 10:20am [place] [facility] [place] [place] September 23, 2025 1:30pm Reason for Referral Type Reason(s) Provider Provider Contact Information P nicolder Address Start Date Urinary incontinence R32 - Unspecified urinary incontinenceJaswant Henley MDWork Phone: fpg [facility] [address], [address] [facility] [id number] - Unspecified urinary incontinenceMagdi Wise MD[address] [facility] [address]e [address] Allergies, Adverse Reactions, Alerts Allergen Type Severity Reaction Last Updated Verified Status penicillin G Allergy Unknown hives and throa t swelling August 22, 2025 9:32am Yes Active morphine Allergy Unknown Vomiting August 22, 2025 9:32am Yes Active Social History Smoking Status Status Start Date End Date Date of Observa tion Ex-smoker (finding) August 07, 2025 6:24am Observation Status Observation Response Date of Response Legal Sex Male (finding) Sex Assigned At BirthMaleAprnc 1949 Social History Assessments Assessment Value Date Recorded SDOH Follow up August 08, 2025 9:01amQuestionAnswerDate RecordedHas the SDOH screening changed since admission?NOctober 2024 9:01am Family History Relationship Condition Age at Onset Recorded Date/T irving father Unknown motherMalignant neoplasm of breastUnknownDeceasedUnknownbrotherMalignant neoplasmUnknown Problems Active Problems Problem Diagnosis/Recorded Date Onset Date Stat Medicare annual wellness vis it, subsequent September 23, 2025 2:24pm Unknown Active Obstructive sleep apnea August 26, 2025 8:01am Unkn own Active Trochanteric bursitis, right hip May 07, 2025 10:45 am Unknown Active CAD in [place] artery August 22, 2025 3:26pm Unknown Active Lumbar stenosis July 24, 2025 12:35pm Unknown Active Allergic rhinitis due to pollen August 22, 2025 3:2 5pm Unknown Active Cholelithiasis without cholecystitis August 26 7:59am Unknown Active Essential hypertension, benign August 26, 2025 8:00 am Unknown Active Chronic kidney disease (CKD) , stage III (moderate) August 26, 2025 8:00am Unknown Active Dyslipidemia August 26, 2025 8:00am Unknown Ac tive Visual impairment of left eye July 24, 2025 12:32p m Unknown Active Encounter for long-term (cur rent) use of medications September 23, 2025 2:23pm Unknown Active DDD (degenerative disc disease), lumbar August 26, 2025 8:00am Unknown Active Abnormal CT of the abdomen August 22, 2025 3:25pm U nknown Active Degenerative lumbar spinal stenosis September 23, 2025 2:24pm Unknown Active PAD (peripheral artery disease) September 04, 2024 9: 29am Unknown Active Osteoarthritis of right knee August 26, 2025 8:01am Unknown Active Chronic obstructive pulmonary disease August 26 8:00am Unknown Active History of kidney stones July 24, 2025 12:31pm Unk nown Active Right hip pain May 07, 2025 10:45am Unknown Ac tive BPH without urinary obstruction August 22, 2025 3:2 5pm Unknown Active Vitamin D deficiency August 26, 2025 8:01am Unknown Active Lumbar stenosis with neuroge larry claudication May 07, 2025 10:44am Unknown Active Inactive/Resolved Problems Problem Diagnosis/Recorded Date Onset Date Stat us Conjunctivitis, acute, bilateral February 02, 2025 10:3 7am Unknown Resolved Acute gout of right wrist September 04, 2024 9:29am U nknown Resolved Gout attack September 04, 2024 10:51am Unknown Resolved Medications Medication Status Dose Units Route Directions Qty Days Refills S tart Date Stop Date End Date Reason(s) Instructions Adherence Ascorbic Acid (Vitamin C) (C-500) 500 mg tablet Active 500 MG PO Daily July 23, 2025 11:00pmComplies with drug therapyCholecalciferol (Vitamin D3) (Vitamin D3) 125 mcg (5,000 unit) zcrclzQmijuh7723VPVYRQXzkeePlxezurla 30th, 2025 11:00pmComplies with drug therapyCyanocobalamin (Vitamin B-12) (Vitamin B- 12) 1,000 mcg mhoruzWygdfc4430KQQRQLyakbFhmkhsvtv 30th, 2025 11:00pmComplies with drug yyxztxjIrivfdotthgz-Xtjtbwje-Eocdes (Multivitamin 50 Plus) tablet Iapehg8OIBXYDnzjyGnlcstpyw 30th, 2025 11:00pmComplies with drug therapyZinc 50 mg iujwoiNxczgx07GLMCTinncVxaqyxcya 30th, 2025 11:00pmComplies with drug therapy [place] 0-Jcy-Avu-Fish Oil (Fish Oil) 1,200 (144-216) mg loumdkyAujbkf0ETNWFKcmyw July 23, 2025 11:00pmComplies with drug therapyMagnesium 250 mg tablet Fwbqsy988AXQIMvnnmAspmfwcsi 30th, 2025 11:00pmComplies with drug therapyCalcium Citrate 200 mg (950 mg) wcmmqxRsqcte009XJOMHcjbwPwjjelflf 30th, 2025 11:00pm Complies with drug therapyCyclobenzaprine 10 mg okduokEvmhcw96GOFQYnsum times daily as needed for back ofgdem828Gdsnlcy 2024 11:00pmComplies with drug therapySulfamethoxazole-Trimethoprim (Bactrim Ds) 800-160 mg tabletDiscontinued1 OWAWKH55N772Botulrp 14th, 2025 11:00pmOctober 2024 9:33amOxycodone 5 mg tabletDiscontinued5 - 44WXLRL0M as needed for Tmfd0206Hmavjgw 2024October 2024 10:28amSpinal stenosis of lumbar region with neurogenic claudication Spinal stenosis, lumbar region with neurogenic claudicationPrednisone 10 mg tablets,dose psbfUnopvbfpjfvt3rojc pkPOper package ivnvkydbgm812Exmzare 2024 11:00pmOct2024 9:33amtake 4 tabs for 3 days then take 3 tabs for 3 days then take 2 tabs for 3 days then take 1 tab for 3 daysLosartan 100 mg tabletDiscontinuedMGPONovember 2023 12:00amApril 2024 9:47amAmlodipine 10 mg tabletDiscontinuedMGPO September 04, 2024 12:00amApril 2024 9:47amMetoprolol Succinate 50 mg tablet extended release 24 hrDiscontinuedMGPONovember 2023 12:00amApril 2024 9:47amVitamin A Palmitate (A-25 (Vit A Palmitate)) 7,500 mcg (25,000 unit) junkkajVtsdrxeyxytr4204HSQDQdpzks weekNov2023 12:00amApril 2024 9:45amPrednisone 20 mg ivupztVigmwlntjqqp24IGUF.KRFALVS562Znqlkblz 12th, 2024 12:00amApril 2024 9:45amTake 3 tabs po daily x 3 days, then take 2 tabs po daily x 3 days, then take 1 tab po daily x 3 days.Amlodipine 10 mg tzjrsmGovdni80NNRPExcufScovo 2024 9:44amComplies with drug therapy Losartan 100 mg zigtvaKzbgug534ICZCWumbbXdatz 2024 9:45amComplies with drug therapyMetoprolol Succinate 50 mg tablet extended release 24 dmYeaafm83YZLQ DailyApril 2024 9:45amComplies with drug therapy Btfifowfmpa-Nkbydlcns-Wjxxtshz (Trelegy Ellipta) 200-62.5-25 mcg blister with kieqglYqkgeg7KUQVANAKIOKNRDoyunHnshr 2024 11:00pmComplies with drug therapyHydrochlorothiazide 25 mg rhywftKkgxux34KTHFYfxmmNipkp 2024 11:00pm Complies with drug therapyAtorvastatin 80 mg yakcioUpmpsv33NKUQKfbqzGiewi 2024 11:00pmComplies with drug therapyClopidogrel 75 mg sgbgwhNefwah46QMGLSojtj Julia 2024 11:00pmOn Hold: Resume on 08/15/25.Complies with drug therapy Ofloxacin 0.3 % lcrajZxpwcaajwulz0ULLLXWGF-YGDDEcyx times fpgps1804Lmwap 2024 11:00pmOctober 2024 12:47pmGabapentin 600 mg ovbhkbXvdhub913LTNQWunjk dailyJuly 2024 11:00pmpainComplies with drug therapyOxycodone 5 mg tablet Discontinued5 - 79ZJMBN4Q as needed for Jgnj6787Ctbsxsx 2024December 2024 2:07pmSpinal stenosis of lumbar region with neurogenic claudication Spinal stenosis, lumbar region with neurogenic claudication Relevant Diagnostic Tests and/or Laboratory Data Laboratory Results Test Collection Date/Time Result Date/Time Result Interpretation Reference Range Result Comment Performing Site Corrected White Blood Count July 24, 2025 12:25pm July 24, 2025 12:58pm 5.2 10*3/uL 4.1-10.5FSelect [facility] [id number] [address] [facility] [address]Ijumrhsulrh WBC CountOctober 2024 12:25pmOctober 2024 12:58pm5.2 10*3/uL4.1-10.5FCinc[facility] [id number] [address] [place] [address]Yph Blood CountOctober 2024 12:25pmOctober 2024 12:58pm3.44 10*6/uLBelow low normal3.90-5.60[facility] [id number] [address] [place] [address]GyigvboqtxCpihpxu 2024 12:25pmOctober 2024 12:58pm 11.5 g/dLBelow low gnsilt77.0-17.0[facility] [id number] [address] [place] [address]PukiakymmxCbtziki 2024 12:25pmOctober 2024 12:58pm 34.5 %Below low vnzeje44.8-50.0[facility] [id number] [address] [place] [address]Dicf Corpuscular VolumeOctober 2024 12:25pmOctober 2024 12:31er138.3 fL83.5-101[facility] [id number] [address] [place] [address]Mukx Corpuscular HemoglobinOctober 2024 12:25pmOctober 2024 12:58pm33.4 pg27.5-35.2FCincinnati [facility] [id number] [address] [place] [address]Ivia Corpuscular Hemoglobin ConcentOctober 2024 12:25pm October 2024 12:58pm33.3 g/dL32.5-35.6FCinc[facility] [id number] [address] [place] [address]Jwk Cell Distribution WidthOctober 2024 12:25pmOctober 2024 12:58pm14.8 %12.0-14.8[facility] [id number] [address] [place] [address]Zoyziwvg CountOctober 2024 12:25pmOctober 2024 12:52wq932 10*3/fL507-720RhuiwfqibRiverside Methodist Hospital [facility] [id number] [address] [facility] [address]Kpln Platelet VolumeOctober 2024 12:25pmOctober 2024 12:58pm7.1 fL6.6-10.1FCincinnati [facility] [id number] [address] [facility] [address]Lizqxqmfqwy (%) (Auto)July 24, 2025 12:25pmOctober 2024 12:58pm66.7 %.[facility] [id number] [address] [facility] [address]Qtqhkduvxdo (%) (Auto)July 24, 2025 12:25pmOctober 2024 12:58pm16.0 %.[facility] [id number] [address] [facility] [address]Efdflrhsh (%) (Auto)July 24, 2025 12:25pmOctober 2024 12:58pm13.5 %.[facility] [id number] [address] [facility] [address]Zeedtzuwrpq (%) (Auto)July 24, 2025 12:25pmOctober 2024 12:58pm2.9 %.[facility] [id number] [address] [facility] [address]Saiiuvvuc (%) (Auto)July 24, 2025 12:25pmOctober 2024 12:58pm0.9 %.[facility] [id number] [address] [facility] [address]Gxmgjqywc RBC Relative Count (auto)July 24, 2025 12:25pm July 24, 2025 12:58pm0.1 /100{WBC}0-0.5FCincinnati [facility] [id number] [address] [facility] [address]Yevfeppzork # (Auto)July 24, 2025 12:25pmOctober 2024 12:58pm3.5 10*3/uL1.8-7.7FC[facility] [id number] [address] [facility] [address]Cohqhhdyhzv # (Auto)July 24, 2025 12:25pmOctober 2024 12:58pm0.8 10*3/uLBelow low normal1.00-4.8[facility] [id number] [address] [facility] [address]Eztlhdirq # (Auto)July 24, 2025 12:25pmOctober 2024 12:58pm0.7 10*3/uL0.0-0.8[facility] [id number] [address] [facility] [address]Nligbcfapmh # (Auto)July 24, 2025 12:25pmOctober 2024 12:58pm0.1 10*3/uL0.0-0.45[facility] [id number] [address] [facility] [address]Wjvqcgzjl # (Auto)July 24, 2025 12:25pmOctober 2024 12:58pm0.0 10*3/uL0.0-0.2FC[facility] [id number] [address] [facility] [address]Uprtevn LevelOctober 2024 12:25pmOctober 2024 1:21pm 98 mg/eE78-103VOF recommended reference rangeRandom Glucose Reference Range is dependent on time and content of last meal. Glucose of more than 200 mg/dL in a nonstressed, ambulatory subject supports the diagnosisof Diabetes Mellitus. [facility] [id number] [address] [facility] [address]Otrsq Urea NitrogenOctober 2024 12:25pmOctober 2024 1:21pm15 mg/dL7-25[facility] [id number] [address] [facility] [address]OufewjteypQjaunmw 2024 12:25pmOctober 2024 1:21pm1.13 mg/dL0.70-1.30[facility] [id number] [address] [place] [address]Ljwisolyk GFR (CKD-EPI)July 24, 2025 12:25pmOctober 2024 1:21pm> 60.0 mL/MinRiverside Methodist Hospital Ctr [id number] [address] [facility] [address]Ahzrxt LevelOctober 2024 12:25pmOctober 2024 1:21pm 135 mmol/LBelow low wspovt945-769DfgeiikkuRiverside Methodist Hospital Ctr [id number] [address] [facility] [address]Rlkunhzoz LevelOctober 2024 12:25pmOctober 2024 1:21pm4.2 mmol/L3.5-5.1FCincinnati [facility] [id number] [address] [facility] [address]Obrcrxpi LevelOctober 2024 12:25pmOctober 2024 1:21pm 101 mmol/A81-161XlhvkxebfRiverside Methodist Hospital Ctr [id number] [address] [facility] [address]Flcjtp Dioxide LevelOctober 2024 12:25pmOctober 2024 1:21pm28.0 mmol/L21.0-31.0[facility] [id number] [address] [facility] [address]Jcmso GapOctober 2024 12:25pmOctober 2024 1:21pm10.2 mEq/L6.0-15.0[facility] [id number] [address] [facility] [address]Yxyujnh LevelOctober 2024 12:25pmOctober 2024 1:21pm 9.6 mg/dL8.6-10.3FC[facility] [id number] [address] [facility] [address]Efioihyi Creatinine Clearance (ChemOctober 2024 12:25pm July 24, 2025 1:21pmN/[facility] [id number] [address] [facility] [address] Vital Signs Vital Reading Result Reference Range Collection Date/Time Height 70 [in_i] June 25, 2025 8:06erFuxbwm80.70 kgSept2024 8:47amBMI (Body Mass Index)30.6 kg/s1Wnqgltgaj2024 8:15rfRnsqxs18 [in_i]July 18, 2025 8:84ezNuaxkg87.20 kgSept2024 8:15amBMI (Body Mass Index)31.0 kg/m2 July 18, 2025 8:02aoTevsat57 [in_i]August 07, 2025 5:51qyXnidnt02.50 kgSelect [facility] 2024 3:16amBody Lzexlimwcgu73.6 [degF]97.6-99.0Octhazard arh [facility] center 2024 7:09amHeart Rate71 /zzu95-438Sxcuohf 2024 7:09amRespiratory rate20 /paa24-61Tqthhrf 2024 7:09amOxygen saturation by Pulse %95-100 August 09, 2025 7:09amBP Aeptkzoz371 mm[Hg]100-140Octh[facility] 2024 7:09amBP Anibyzgpf56 mm[Hg]60-100Octhazard arh [facility] center 2024 7:09amInhaled oxygen flow rate3 L/minSelect Specialty Hospital[facility] 2024 12:01ciLtiaxi63.90 kgSelect [facility]ty [facility] 2024 9:68psAhvwmv31 [in_i]September 23, 2025 2:77twKssswq74.44 kgharbor oaks hospital2024 2:05pmBody Geolojjymxg57.1 [degF]97.6-99.0Deharbor oaks hospital2024 2:05pmHeart Rate70 /jek91-783 September 23, 2025 2:05pmRespiratory rate18 /vuh36-75Gugijser 1st, 2025 2:05pm Oxygen saturation by Pulse ntrwfeen33 %95-1002024 2:05pmBP Dvdmkmer435 mm[Hg]100-140Dece2024 2:05pmBP Jbpsdbadx75 mm[Hg]60-100 September 23, 2025 2:05pmBMI (Body Mass Index)29.5 kg/p8Xjjqxvnq2024 2:05pm Advance Directives Advance Directive Response Recorded Date/ Time Advance Directives No September 7:42am Insurance Providers Guarantor Mike Osei Address [address] [place] [id number] Info.Home Phone: Coverage Status Update:2025 Payer Group Member ID Coverage Type Subscriber Relationship to Subscriber Effective Date Expiration Date Maxi DEAN [id number] Osei Id: [id number] [id number] [facility] [id number] Home Phone: Email: Encounters Encounter Location(s) Arrival/Admit Date Discharge/Departure Date Discharge/Departure Disposition Provider(s) Departed Physician/ Provider Office Visit -[facility] June 25, 2025 9:39am June 25, 2025 10:29am Discharged to home care or self care (routine discharge) Jaswant Henley MD Departed Physician/ Provider Office Visit -[facility] July 18, 2025 9:04am July 18, 2025 10:04am Discharged to home care or self care (routine discharge) Jaswant Henley MD Departed Clinical -Pre-Surgica l Testing July 24, 2025 12:50pm July 24, 2025 12:51pm Discharged to home care or self care (routine discharge) Jaswatn Henley MD Non-patient / Non-visit -[facility] August 07, 2025 5:48am Jaswant Henley MDNon-patient / [facility] 2024 12:00amYING Galloeparted Physician/Provider [facility]- [facility]Oct[facility] 2024 10:20amOctober 2024 11:28amDischarged to home care or self care (routine discharge)Jaswant Henley MD Departed Physician/Provider Office Visit-[facility] 2024 1:30pmDeharbor oaks hospital2024 2:44pmDischarged to home care or self care (routine discharge)Pool Peace MD Recent Diagnosis Onset Date Admit Date Lumbar stenosis with neurogenic claudication Unk nowJune 25, 2025 9:39am Right hip pain Unknown June 25 9:39am Trochanteric bursitis, right hip Unknown June 25, 2025 9:39am Lumbar stenosis with neurogenic claudication Unk nowJuly 18, 2025 9:04am Right hip pain Unknown July 18, 2025 9:04am Trochanteric bursitis, right hip Unknown July 18, 2025 9:04am Lumbar stenosis with neurogenic claudication Unk nowAugust 07, 2025 5:48am BPH without urinary obstruction Unknown August 22, 2025 10:20am Lumbar stenosis with neurogenic claudication Unk nown August 22, 2025 10:20am Medicare annual wellness visit, subsequent Unkno wn September 23, 2025 1:30pm Assessments Diagnosis Onset Date Resolution Status Admit Date Lumbar stenosis with neurogenic claudica tion acuteSept2024 9:39amRight hip painacuteSept2024 9:39am Trochanteric bursitis, right hipacuteSept2024 9:39amLumbar stenosis with neurogenic claudicationacuteSept2024 9:04amRight hip painacute July 18, 2025 9:04amTrochanteric bursitis, right hipacuteSept2024 9:04amLumbar stenosis with neurogenic claudicationacuteOctober 2024 5:48amBPH without urinary obstructionacuteOctober 2024 10:20amLumbar stenosis with neurogenic claudicationacuteOctober 2024 10:20amMedicacmc healthcare [facility] annual wellness visit, subsequentacuteDeencompass [facility] 2024 1:30pm Plan of Treatment Author Jaswant Henley [facility] 11:55amHe continues to get leg pain bilateral right greater than left which appears to be neurogenic claudication. He can no longer tolerate the symptoms and would like decompression I would recommend a L2 L3-L4-L5 decompressive laminectomy. He has a very mild offset at L4-5 on flexion extension view there is no movement whatsoever. I would recommend simply doing a decompression no fusion. The patient has had eye surgery and now is only able to lay on his left side for limited periods of time and would not be able to have an operation yet he will be able to have this operation in June. He continues to have significant neurogenic claudication with standing and walking and can no longer tolerate the symptoms and would like this operated on. I am planning a decompressive laminectomy L2 L3-L4-L5. This is 3 disc levels. There is a possibility he could end up developing more spondylolisthesis at L4-5 but with no motion on flexion and extension and 75 years old I would rather do a decompression at start then look at fusion. The patient agrees. The indication operation postop course risk benefits and complications were discussed in detail including theoretical paralysis, nerve damage, incomplete relief of symptoms, infection, spinal fluid leak, and the need for future surgery like a fusion. He fully understands agrees and would like to proceed with surgical intervention. Author Jaswant Henley [facility] HospitalAuthoredSeptember 2024 9:19amHe continues to get leg pain bilateral right greater than left which appears to be neurogenic claudication. He can no longer tolerate the symptoms and would like decompression I would recommend a L2 L3-L4-L5 decompressive laminectomy. He has a very mild offset at L4-5 on flexion extension view there is no movement whatsoever. I would recommend simply doing a decompression no fusion. The patient has had eye surgery and now is only able to lay on his left side for limited periods of time and would not be able to have an operation yet he will be able to have this operation in June. He continues to have significant neurogenic claudication with standing and walking and can no longer tolerate the symptoms and would like this operated on. I am planning a decompressive laminectomy L2 L3-L4-L5. This is 3 disc levels. There is a possibility he could end up developing more spondylolisthesis at L4-5 but with no motion on flexion and extension and 75 years old I would rather do a decompression at start then look at fusion. The patient agrees. The indication operation postop course risk benefits and complications were discussed in detail including theoretical paralysis, nerve damage, incomplete relief of symptoms, infection, spinal fluid leak, and the need for future surgery like a fusion. He fully understands agrees and would like to proceed with surgical intervention. Author Jaswant Henley [facility] HospitalAuthoredOctober 2024 10:29amI am the patient is about 2 weeks postop he is actually doing very well he can stand and walk better than he did preoperatively. He is having no eye problem from all these issues he has had with his eye before interestingly when he goes to stand up he will dribble a few drops of urine. He can have normal periods of urination knowing when he has to go etc. This is new since the surgery. He has new numbness as mentioned above. I will send him to urology for evaluation and treatment. From a surgical standpoint he is having a urinary issue but overall neurogenic claudication is much better I will follow-up with him in a month. Future Tests Future scheduled test information is unavailable Pending Tests Test Name Ordered Date Scheduled Date Comprehensive Metabolic Panel September 23, 2025 2:26pm Future Visits Future appointment information is unavailable Future Procedures Procedure Name Ordered Date Scheduled Date Admit Status Order August 07, 2025 8:33am Oct ranjit 2024 10:11am Discharge Order August 09, 2025 7:11am Octobe r 2024 7:11am Complete Blood Count Auto Diff September 23 2:26pm Lipid PanelDecemb2024 2:26pmPSA Screen (Yearly Only)September 23, 2025 2:26pmThyroid Stimulating HormoneDece2024 2:26pm Future Medications Future medication information is unavailable Patient Instructions Instruction Admit Date Know your Meds August 07, 2025 5 :48am
--- NOTE | 2025-09-27 10:07 | CT_ITS ---
The [address] [address] Patient Name: HUY MARTINEZ MRN: [id number] date: 1950 Sex: M Assigned Patient Location: CT Current Patient Location: CT Accession/Order Number: [id number] Exam Date: 09/27/2025 10:09 Report Date: 09/27/2025 10:51 At the request of: LEIGHA PEDRAZA DO Procedure: CT lung screening low-dose CT CHEST WITHOUT CONTRAST, LOW DOSE SCREENING: CLINICAL DATA: A 75-year old former smoker, smoking for 40 pack-years. COMPARISON: None TECHNIQUE: Noncontrast axial CT scan images of the chest were obtained under the low dose screening CT protocol. Coronal and sagittal reconstructed images were also submitted. FINDINGS: Mediastinum : Suboptimal evaluation due to low-dose technique. Thoracic aorta appears normal in caliber. Pulmonary trunk appears nondilated. No pericardial effusion. No lymphadenopathy. The esophagus is grossly unremarkable. Lungs: No focal consolidation, pneumothorax or pleural effusion. Trachea and distal airways appear patent. Diffuse bronchial wall thickening. Mild lung scarring. Calcified granulomas. No suspicious noncalcified pulmonary nodule or mass. Upper abdomen: No acute findings. Splenic granulomas. Bony thorax and chest wall: Soft tissues surrounding the chest wall demonstrate no acute findings. Osseous structures demonstrate degenerative change. Chronic appearing compression deformity T4 and T8 vertebral bodies. CT/CT lung screening low-dose IMPRESSION: NO SUSPICIOUS LUNG NODULE OR MASS. LUNG - RADS Version 1.0 Assessment: Category 1, Negative (No nodules and definitely benign nodules). Management: Continue annual lung screening with LDCT in 12 months. Impression dictated by: Ezra Lacy Jr., D.O. 09/27/2025 10:51 AM Dictation Location: [place] [address] Electronically authenticated by: [id number] Y Date: 09/27/2025 10:51
== END 2025-09-27 10:02 | disposition home or self-care (01) ==
PROVIDERS: PCP Family Medicine; Visit Provider Internal Medicine
DX: Z12.2 Encounter for screening for malignant neoplasm of respiratory organs (principal); Z87.891 Personal history of nicotine dependence
CPT/HCPCS: 71271